=== PATIENT | female | born 1950 | race Two or more races ===

== ENCOUNTER → 2022-08-20 | Outpatient (CLI) | payer OTHER ==
[2022-08-20 12:20] LABS: Basophils # (auto) 0.1 10 ^3/uL (0-0.2); Basophils % (auto) 0.9 % (0.0-2.0); Eosinophils # (auto) 0.2 10 ^3/uL (0-0.8); Eosinophils % (auto) 2.2 % (0.0-7.0); Hematocrit 39.7 % (36.0-46.0); Hemoglobin 13.5 g/dL (12.2-16.2); Lymphocytes # (auto) 2.1 10 ^3/uL (0.4-5.4); Lymphocytes % (auto) 28.7 % (10.0-50.0); Mean Corpuscular Hemoglobin 29.6 pg (28.0-32.0); Mean Corpuscular Hgb Conc. 33.9 g/dL (32.0-36.0); Mean Corpuscular Volume 87.5 fL (80.0-100.0); Monocytes # (auto) 0.3 10 ^3/uL (0-1.3); Monocytes % (auto) 4.6 % (0.0-12.0); Neutrophils # (auto) 4.5 10 ^3/uL (1.6-8.6); Neutrophils % (auto) 63.6 % (37.0-80.0); Nucleated Red Blood Cells % 0.1 %; Red Blood Cells 4.54 10^6/uL (4.0-5.20); Red Cell Distribution Width 13.7 % (11.8-14.3); White Blood Cell 7.1 10^3/uL (4.4-10.8)
[2022-08-20 13:12] LABS: Albumin 3.7 g/dL (3.4-5.0); Calcium 8.7 mg/dL (8.5-10.1); Potassium 3.3 mmol/L (3.5-5.1)
[2022-08-20 13:18] LABS: BUN/Creatinine Ratio 15.7 (10.0-20.0); Bilirubin, Total 0.5 mg/dL (0.2-1.0); Uric Acid 3.4 mg/dL (2.6-6.0)
[2022-08-20 13:51] LABS: % Iron Saturation 23.5 % (15-50)
[2022-08-21 12:43] LABS: Urine Bacteria NONE SEEN /hpf (None Seen); Urine Blood 3+ /uL (Negative); Urine Mucus FEW (None Seen); Urine Specific Gravity 1.012 (1.001-1.035); Urine WBC 152 /hpf (0 - 5); Urine WBC Clumps PRESENT /hpf (None Seen)
== END | disposition home or self-care (01) ==
LOC: LAB 12:01
PROVIDERS: ATTEND Family Medicine
DX: E11.22 Type 2 diabetes mellitus with diabetic chronic kidney disease (principal); N18.31 Chronic kidney disease, stage 3a
CPT/HCPCS: 36415; 80053; 80061; 81001; 82306; 82607; 83036; 83540; 83550; 83735; 84550; 85025; 87086

== ENCOUNTER → 2022-09-24 | Outpatient (CLI) | payer OTHER | END | disposition home or self-care (01) | LOC: XYW 09:31 | DX: I08.3 Combined rheumatic disorders of mitral, aortic and tricuspid valves (principal); I48.91 Unspecified atrial fibrillation | CPT/HCPCS: 93306 ==

== ENCOUNTER → 2022-11-05 | Outpatient (CLI) | payer OTHER ==
[2022-11-05 14:37] LABS: Urine Bacteria NONE SEEN /hpf (None Seen); Urine Blood 3+ /uL (Negative); Urine Specific Gravity 1.007 (1.001-1.035); Urine WBC 29 /hpf (0 - 5)
== END | disposition home or self-care (01) ==
LOC: LAB 13:43
PROVIDERS: ATTEND Family Medicine
DX: R39.15 Urgency of urination (principal)
CPT/HCPCS: 81001; 87086; 87088; 87186

== ENCOUNTER → 2022-12-21 | Outpatient (CLI) | payer OTHER ==
[2022-12-21 14:10] LABS: Urine Bacteria NONE SEEN /hpf (None Seen); Urine Blood 3+ /uL (Negative); Urine Clarity HAZY (Clear); Urine Color PINK (Yellow); Urine Protein, UAD 1+ (Negative); Urine Specific Gravity 1.021 (1.001-1.035); Urine Urobilinogen Normal (Negative); Urine WBC 11 /hpf (0 - 5); Urine pH 5.5 (5.0-8.0)
== END | disposition home or self-care (01) ==
LOC: LAB 13:40
PROVIDERS: ATTEND Family Medicine
DX: N39.0 Urinary tract infection, site not specified (principal)
CPT/HCPCS: 81001; 87086

== ENCOUNTER → 2023-04-15 | Outpatient (CLI) | payer OTHER ==
[2023-04-15 11:09] LABS: Basophils # (auto) 0.1 10 ^3/uL (0-0.2); Eosinophils # (auto) 0.2 10 ^3/uL (0-0.8); Eosinophils % (auto) 2.9 % (0.0-7.0); Hematocrit 38.4 % (36.0-46.0); Lymphocytes # (auto) 1.7 10 ^3/uL (0.4-5.4); Mean Corpuscular Hemoglobin 29.5 pg (28.0-32.0); Mean Corpuscular Hgb Conc. 33.8 g/dL (32.0-36.0); Mean Corpuscular Volume 87.5 fL (80.0-100.0); Monocytes # (auto) 0.3 10 ^3/uL (0-1.3); Monocytes % (auto) 4.4 % (0.0-12.0); Neutrophils # (auto) 3.9 10 ^3/uL (1.6-8.6); Neutrophils % (auto) 63.7 % (37.0-80.0); Nucleated Red Blood Cells % 0.1 %; Red Blood Cells 4.39 10^6/uL (4.0-5.20); Red Cell Distribution Width 14.3 % (11.8-14.3); White Blood Cell 6.2 10^3/uL (4.4-10.8)
[2023-04-15 11:37] LABS: Alanine Aminotransferase 13 U/L (7-40); Albumin 4.5 g/dL (3.2-4.8); Alkaline Phosphatase 149 U/L (46-116); Anion Gap 5 (5-15); Aspartate Aminotransferase 15 U/L (13-40); BUN/Creatinine Ratio 12.3 (10.0-20.0); Bilirubin, Total 0.5 mg/dL (0.2-1.0); Blood Urea Nitrogen 10 mg/dL (9-23); Calcium 9.3 mg/dL (8.5-10.1); Carbon Dioxide 28 mmol/L (20-30); Chloride 110 mmol/L (98-107); Cholesterol 119 mg/dL (< 200); Glucose 95 mg/dL (74-106); HDL Cholesterol 47 mg/dL (40-59); LDL Cholesterol 53 mg/dL (< 100); Potassium 3.8 mmol/L (3.5-5.1); Sodium 143 mmol/L (136-145); Triglycerides 118 mg/dL (< 150)
[2023-04-15 11:40] LABS: Free T4 (Free Thyroxine) 1.03 ng/dL (0.89-1.76)
[2023-04-15 11:41] LABS: Free T3 3.02 pg/mL (2.3-4.2)
[2023-04-15 12:05] LABS: Erythrocyte Sedimentation Rate 14 mm/hr (0-20); Hepatitis B Surface Antigen Negative (Negative)
[2023-04-15 12:26] LABS: Hepatitis C Antibody Negative (Negative)
[2023-04-16 08:06] LABS: Complement C3 147 mg/dL (82-167); Rheumatoid Arthritis Factor <10.0 IU/mL (<14.0)
[2023-04-16 12:06] LABS: Anti-Nuclear Antibody Direct Negative (Negative)
== END | disposition home or self-care (01) ==
LOC: LAB 10:38
PROVIDERS: ATTEND Student in an Organized Health Care Education/Training Program
DX: I48.0 Paroxysmal atrial fibrillation (principal); I50.9 Heart failure, unspecified; I63.9 Cerebral infarction, unspecified; N18.31 Chronic kidney disease, stage 3a; R76.0 Raised antibody titer; R79.82 Elevated C-reactive protein (CRP); B17.9 Acute viral hepatitis, unspecified; E27.40 Unspecified adrenocortical insufficiency; M05.9 Rheumatoid arthritis with rheumatoid factor, unspecified
CPT/HCPCS: 36415; 80053; 80061; 82088; 82947; 84439; 84443; 84481; 85025; 85652; 86038; 86160; 86162; 86431; 86803; 87340

== ENCOUNTER → 2023-05-24 | Outpatient (CLI) | payer OTHER ==
[~2023-05-24] VITALS: Ht 162.6 cm; Wt 94.3 kg
[~2023-05-24] MED LIST: ADENOSINE 79 MG in GIVE UN-DILUTED 0 ML IV ONE; ADENOSINE 90 MG/30 ML INJ IV ONE; METOPROLOL SUCCINATE XL 50 MG TAB PO ONE
== END | disposition home or self-care (01) ==
LOC: Rad HDHVI 14:02
PROVIDERS: ATTEND Internal Medicine Cardiovascular Disease
DX: I13.0 Hypertensive heart and chronic kidney disease with heart failure and stage 1 through stage 4 chronic kidney disease, or unspecified chronic kidney disease (principal); N18.31 Chronic kidney disease, stage 3a; I50.9 Heart failure, unspecified; I63.9 Cerebral infarction, unspecified; R06.02 Shortness of breath; I48.0 Paroxysmal atrial fibrillation; Z95.0 Presence of cardiac pacemaker; Z82.49 Family history of ischemic heart disease and other diseases of the circulatory system
CPT/HCPCS: 78452; 93005; 96374; 96375; A9500; J0153

== ENCOUNTER → 2023-05-26 | Outpatient (CLI) | payer OTHER | END | disposition home or self-care (01) | LOC: XYW 08:43 | PROVIDERS: ATTEND Internal Medicine | DX: I65.22 Occlusion and stenosis of left carotid artery (principal); R42 Dizziness and giddiness | CPT/HCPCS: 93886 ==

== ENCOUNTER → 2023-07-23 | Outpatient (CLI) | payer OTHER ==
[2023-07-23 11:00] LABS: Alanine Aminotransferase 21 U/L (7-40); Albumin 4.5 g/dL (3.2-4.8); Alkaline Phosphatase 119 U/L (46-116); Anion Gap 9 (5-15); Aspartate Aminotransferase 18 U/L (13-40); BUN/Creatinine Ratio 17.1 (10.0-20.0); Bilirubin, Total 0.4 mg/dL (0.2-1.0); Blood Urea Nitrogen 20 mg/dL (9-23); Calcium 9.4 mg/dL (8.5-10.1); Carbon Dioxide 26 mmol/L (20-30); Chloride 105 mmol/L (98-107); Glucose 101 mg/dL (74-106); Potassium 3.9 mmol/L (3.5-5.1); Sodium 140 mmol/L (136-145); Total Protein 6.8 g/dL (5.7-8.2)
== END | disposition home or self-care (01) ==
LOC: LAB 10:12
PROVIDERS: ATTEND Internal Medicine
DX: I13.0 Hypertensive heart and chronic kidney disease with heart failure and stage 1 through stage 4 chronic kidney disease, or unspecified chronic kidney disease (principal); N18.9 Chronic kidney disease, unspecified; I50.9 Heart failure, unspecified; E78.5 Hyperlipidemia, unspecified
CPT/HCPCS: 36415; 80053

== ENCOUNTER 2023-09-13 11:26 | Emergency (ER) | payer OTHER ==
[~2023-09-13] VITALS: Ht 154.9 cm; Wt 97.4 kg
[2023-09-13] MEDS: SODIUM CHLORIDE 0.9% 500 ML IVB ONE (11:45)
[2023-09-13 13:51] LABS: Chloride 104 mmol/L (98-107); Potassium 3.2 mmol/L (3.5-5.1); Sodium 140 mmol/L (136-145)
[2023-09-13 13:52] LABS: Anion Gap 10 (5-15); Carbon Dioxide 26 mmol/L (20-30)
[2023-09-13 13:53] LABS: Calcium 10.6 mg/dL (8.5-10.1)
[2023-09-13 13:57] LABS: BUN/Creatinine Ratio 29.2 (10.0-20.0); Blood Urea Nitrogen 50 mg/dL (9-23); Glucose 110 mg/dL (74-106)
[2023-09-13 14:05] VITALS: O2SAT 98
[2023-09-13 14:08] LABS: Basophils # (auto) 0.1 10 ^3/uL (0-0.2); Eosinophils # (auto) 0.1 10 ^3/uL (0-0.8); Eosinophils % (auto) 0.7 % (0.0-7.0); Hematocrit 42.2 % (36.0-46.0); Hemoglobin 14.7 g/dL (12.2-16.2); Lymphocytes # (auto) 1.5 10 ^3/uL (0.4-5.4); Lymphocytes % (auto) 20.2 % (10.0-50.0); Mean Corpuscular Hgb Conc. 34.9 g/dL (32.0-36.0); Mean Corpuscular Volume 88.9 fL (80.0-100.0); Monocytes # (auto) 0.4 10 ^3/uL (0-1.3); Monocytes % (auto) 5.2 % (0.0-12.0); Neutrophils # (auto) 5.6 10 ^3/uL (1.6-8.6); Neutrophils % (auto) 72.9 % (37.0-80.0); Nucleated Red Blood Cells % 0.1 %; Red Blood Cells 4.75 10^6/uL (4.0-5.20); Red Cell Distribution Width 13.8 % (11.8-14.3); White Blood Cell 7.7 10^3/uL (4.4-10.8)
[2023-09-13 14:21] LABS: Urine Bacteria MOD /hpf (None Seen); Urine Blood 3+ /uL (Negative); Urine Clarity Turbid (Clear); Urine Color Light-Yellow (Yellow); Urine Hyaline Cast FEW /lpf (0 - 2); Urine Mucus FEW (None Seen); Urine Protein, UAD Negative (Negative); Urine Specific Gravity 1.015 (1.001-1.035); Urine Urobilinogen Normal (Negative); Urine WBC 21 /hpf (0 - 5); Urine pH 5.5 (5.0-9.0)
[2023-09-13] MEDS: PANTOPRAZOLE 40 MG/10 ML VIAL INJ IV ONE (14:25)
[2023-09-13] MEDS: ONDANSETRON HCL 4 MG/2 ML VIAL IV ONE (14:25)
[2023-09-13 14:26] VITALS: BP 118/53; PULSE 71; RESP 18
[2023-09-13] MEDS: MORPHINE SULFATE 4 MG/ML SYR/VIAL IV ONE (14:26)
[2023-09-13] MEDS ORDERED: CIPR-173 PO (15:07)
[2023-09-13] MEDS: CIPROFLOXACIN HCL 500 MG TAB PO ONE (15:17)
== END 2023-09-13 15:16 | disposition home or self-care (01) ==
LOC: ER 11:26
DX: N39.0 Urinary tract infection, site not specified (principal); R10.13 Epigastric pain; I10 Essential (primary) hypertension; Z88.1 Allergy status to other antibiotic agents; Z86.73 Personal history of transient ischemic attack (TIA), and cerebral infarction without residual deficits; Z90.89 Acquired absence of other organs
CPT/HCPCS: 36415; 74176; 80048; 81001; 85025; 96361; 96374; 96375; C9113; J2405

== ENCOUNTER 2023-09-15 17:22 | Inpatient (IN) | payer OTHER ==
[~2023-09-15] VITALS: Ht 154.9 cm; Wt 106.4 kg
[~2023-09-15 17:22] MED LIST changes: -ADENOSINE 79 MG in GIVE UN-DILUTED 0 ML IV ONE; -ADENOSINE 90 MG/30 ML INJ IV ONE; +CIPR-173 PO; -METOPROLOL SUCCINATE XL 50 MG TAB PO ONE
[2023-09-15 18:05] VITALS: BP 109/42; PULSE 70; RESP 18; TEMP 98.2; O2SAT 95
[2023-09-15] MEDS ORDERED: MORPHINE SULFATE INJ 2 MG/ml SYRG IV PRN (18:15)
[2023-09-15] MEDS ORDERED: NITROGLYCERIN 0.4 MG SL TAB SL PRN (18:15)
[2023-09-15] MEDS: SODIUM CHLORIDE 0.9% 1,000 ML IV SCH (18:15)
[2023-09-15] MEDS: PANTOPRAZOLE 40 MG/10 ML VIAL INJ IV ONE (18:52)
[2023-09-15 20:00] VITALS: PULSE 84; RESP 18; O2SAT 96
[2023-09-15 20:38] LABS: INR 1.1 (0.9-1.15); Prothrombin Time 11.6 sec (9.3-11.8)
[2023-09-15 21:00] VITALS: BP 132/53; PULSE 70; RESP 16; TEMP 97.8; O2SAT 95
[2023-09-15] MEDS: ACETAMINOPHEN 325 MG TAB PO PRN (23:53)
[2023-09-16] VITALS (9 sets, daily range): BP systolic 109–148; BP diastolic 49–63; PULSE 69–77; RESP 16–20; TEMP 97.8–99.1; O2SAT 90–96
[2023-09-16 07:11] LABS: Alanine Aminotransferase 25 U/L (7-40); Albumin 4.3 g/dL (3.2-4.8); Alkaline Phosphatase 99 U/L (46-116); Anion Gap 8 (5-15); Aspartate Aminotransferase 15 U/L (13-40); BUN/Creatinine Ratio 16.8 (10.0-20.0); Bilirubin, Total 0.5 mg/dL (0.2-1.0); Blood Urea Nitrogen 30 mg/dL (9-23); Calcium 9.7 mg/dL (8.5-10.1); Carbon Dioxide 25 mmol/L (20-30); Chloride 109 mmol/L (98-107); Glucose 97 mg/dL (74-106); Potassium 3.1 mmol/L (3.5-5.1); Sodium 142 mmol/L (136-145); Total Protein 6.8 g/dL (5.7-8.2)
[2023-09-16 07:33] LABS: Basophils # (auto) 0.1 10 ^3/uL (0-0.2); Basophils % (auto) 0.8 % (0.0-2.0); Eosinophils # (auto) 0.1 10 ^3/uL (0-0.8); Eosinophils % (auto) 1.8 % (0.0-7.0); Hematocrit 36.2 % (36.0-46.0); Hemoglobin 12.3 g/dL (12.2-16.2); Lymphocytes # (auto) 1.8 10 ^3/uL (0.4-5.4); Lymphocytes % (auto) 25.9 % (10.0-50.0); Mean Corpuscular Hemoglobin 30.7 pg (28.0-32.0); Mean Corpuscular Volume 90.2 fL (80.0-100.0); Monocytes # (auto) 0.5 10 ^3/uL (0-1.3); Monocytes % (auto) 6.9 % (0.0-12.0); Neutrophils # (auto) 4.5 10 ^3/uL (1.6-8.6); Neutrophils % (auto) 64.6 % (37.0-80.0); Red Blood Cells 4.01 10^6/uL (4.0-5.20); Red Cell Distribution Width 13.5 % (11.8-14.3)
[2023-09-16] MEDS: ONDANSETRON HCL 4 MG/2 ML VIAL IV PRN (08:09)
[2023-09-16] MEDS: MORPHINE SULFATE INJ 2 MG/ml SYRG IV PRN (08:10)
[2023-09-16] MEDS ORDERED: PANTOPRAZOLE 40 MG/10 ML VIAL INJ IV SCH (10:00)
[2023-09-16] MEDS: POTASSIUM CHL 20MEQ/100ML 100 ML IV ONE (11:55)
[2023-09-16] MEDS: cefTRIAXone 1GM/50ML D5W 50 ML IV ONE (12:54)
[2023-09-16] MEDS ORDERED: SUCCINYLCHOLINE CHLORIDE 20 MG/ML 10ML VIAL IV ONE (14:19)
[2023-09-16] MEDS ORDERED: fentaNYL CITRATE 100 MCG/2 ML VL ONE (14:20)
[2023-09-16] MEDS ORDERED: MEPERIDINE HCL (50 MG/ML) 1 ML VIAL ONE (14:20)
[2023-09-16] MEDS ORDERED: MIDAZOLAM HCL 2MG/2ML 2ml VIAL (1mg/ml) ONE (14:20)
[2023-09-16] MEDS ORDERED: CIPROFLOXACIN 400MG/200ML 200 ML IV ONE (14:22)
[2023-09-16] MEDS ORDERED: PROPOFOL 10 MG/ML 20 ML IV ONE (14:27)
[2023-09-16] MEDS ORDERED: DexAMETHasone SOD PHOS 10MG/1ML VIAL INJ ONE (14:27)
[2023-09-16] MEDS ORDERED: IOHEXOL 300 MG/ML 100ML BOTTLE IJ ONE (14:41)
[2023-09-16] MEDS ORDERED: ONDANSETRON HCL 4 MG/2 ML VIAL IV ONE (15:15)
[2023-09-16] MEDS ORDERED: MORPHINE SULFATE 4 MG/ML SYR/VIAL IV PRN (15:15)
[2023-09-16] MEDS ORDERED: ePHEDrine SULFATE 50 MG/ML AMP IV PRN (15:15)
[2023-09-16] MEDS ORDERED: LABETALOL HCL 5 MG/ML 4ML SYRINGE IV PRN (15:15)
[2023-09-16] MEDS ORDERED: HYDROmorphone HCL 2 MG/ML VL/or syr IV PRN (15:15)
[2023-09-16] MEDS ORDERED: MIDAZOLAM HCL 2MG/2ML 2ml VIAL (1mg/ml) IV PRN (15:15)
[2023-09-16] MEDS ORDERED: SUGAMMADEX 200mg/2ml Vial (100MG/ML) IV ONE (15:31)
[2023-09-16] MEDS: SODIUM CHLORIDE 0.9% 1,000 ML IV SCH (18:00)
[2023-09-16] MEDS: METOPROLOL TARTRATE 25 MG TAB PO SCH (21:48)
[2023-09-17] VITALS (7 sets, daily range): BP systolic 98–136; BP diastolic 41–81; PULSE 70–75; RESP 17–20; TEMP 98–99; O2SAT 93–95
[2023-09-17 07:09] LABS: Basophils # (auto) 0 10 ^3/uL (0-0.2); Basophils % (auto) 0.1 % (0.0-2.0); Eosinophils # (auto) 0 10 ^3/uL (0-0.8); Hematocrit 35.5 % (36.0-46.0); Hemoglobin 12.1 g/dL (12.2-16.2); Lymphocytes # (auto) 0.5 10 ^3/uL (0.4-5.4); Lymphocytes % (auto) 5.8 % (10.0-50.0); Mean Corpuscular Hemoglobin 30.8 pg (28.0-32.0); Mean Corpuscular Hgb Conc. 34.1 g/dL (32.0-36.0); Mean Corpuscular Volume 90.2 fL (80.0-100.0); Monocytes # (auto) 0.1 10 ^3/uL (0-1.3); Monocytes % (auto) 1.5 % (0.0-12.0); Neutrophils # (auto) 8.1 10 ^3/uL (1.6-8.6); Neutrophils % (auto) 92.6 % (37.0-80.0); Red Blood Cells 3.93 10^6/uL (4.0-5.20); Red Cell Distribution Width 13.9 % (11.8-14.3); White Blood Cell 8.7 10^3/uL (4.4-10.8)
[2023-09-17 07:19] LABS: Anion Gap 6 (5-15); Carbon Dioxide 23 mmol/L (20-30); Chloride 113 mmol/L (98-107); Potassium 3.9 mmol/L (3.5-5.1); Sodium 142 mmol/L (136-145)
[2023-09-17 07:20] LABS: Calcium 9.4 mg/dL (8.5-10.1)
[2023-09-17 07:24] LABS: Free T3 1.85 pg/mL (2.3-4.2); Free T4 (Free Thyroxine) 1.34 ng/dL (0.89-1.76)
[2023-09-17 07:25] LABS: Blood Urea Nitrogen 18 mg/dL (9-23); Glucose 127 mg/dL (74-106)
[2023-09-17 07:26] LABS: Magnesium 2.1 mg/dL (1.6-2.6)
[2023-09-17] MEDS: LEVOTHYROXINE SODIUM 25 MCG TAB PO ONE (08:00)
[2023-09-17] MEDS: cefTRIAXone 1GM/50ML D5W 50 ML IV SCH (09:24)
[2023-09-17] MEDS ORDERED: ONDANSETRON HCL 4 MG/2 ML VIAL IV PRN (11:00)
[2023-09-17] MEDS ORDERED: TRAM50TA2 PO (11:34)
[2023-09-17] MEDS ORDERED: LEVO75TA6 PO ×2 (11:39→15:14)
[2023-09-17] MEDS ORDERED: ONDA-155 PO (11:39)
[2023-09-17] MEDS ORDERED: CEFP200T15 PO (11:49)
[2023-09-18 05:00] VITALS: BP 147/65; PULSE 77; RESP 17; TEMP 98.1; O2SAT 92
[2023-09-18] MEDS: LEVOTHYROXINE SODIUM 25 MCG TAB PO SCH (05:35)
[2023-09-18 08:10] VITALS: PULSE 70; RESP 18; O2SAT 97
[2023-09-18 09:00] VITALS: BP 122/63; PULSE 70; RESP 18; TEMP 98.2; O2SAT 97
[2023-09-18] MEDS: DOCUSATE SOD 100 MG CAP PO PRN (10:42)
[2023-09-18 13:00] VITALS: BP 126/60; PULSE 71; RESP 16; TEMP 98.1; O2SAT 96
[2023-09-18] MEDS ORDERED: ONDA-155 PO (16:39)
[2023-09-18] MEDS ORDERED: LEVO75TA6 PO (16:39)
[2023-09-18] MEDS ORDERED: CEFP200T15 PO (16:39)
[2023-09-18] MEDS ORDERED: TRAM50TA2 PO (16:42)
[2023-09-18 17:00] VITALS: BP 120/52; PULSE 78; RESP 20; TEMP 98.1; O2SAT 96
[2023-09-18 18:27] VITALS: BP 102/59; PULSE 67; TEMP 36.7
== END 2023-09-18 21:26 | disposition left against medical advice (07) | DRG 659 ==
LOC: WEST WING 17:22
PROVIDERS: ADMIT Internal Medicine; ATTEND Internal Medicine
PROC: 0TC38ZZ Extirpation of Matter from Right Kidney Pelvis, Via Natural or Artificial Opening Endoscopic (ICD-10-PCS; 2023-09-16)
PROC: BT1D1ZZ Fluoroscopy of Right Kidney, Ureter and Bladder using Low Osmolar Contrast (ICD-10-PCS; 2023-09-16)
PROC: 0T768DZ Dilation of Right Ureter with Intraluminal Device, Via Natural or Artificial Opening Endoscopic (ICD-10-PCS; principal; 2023-09-16 14:26)
DX: N20.2 Calculus of kidney with calculus of ureter (principal); N17.0 Acute kidney failure with tubular necrosis; I48.20 Chronic atrial fibrillation, unspecified; N30.00 Acute cystitis without hematuria; I69.354 Hemiplegia and hemiparesis following cerebral infarction affecting left non-dominant side; I10 Essential (primary) hypertension; E87.6 Hypokalemia; Z87.442 Personal history of urinary calculi; Z88.1 Allergy status to other antibiotic agents; Z90.11 Acquired absence of right breast and nipple; Z85.3 Personal history of malignant neoplasm of breast; Z82.49 Family history of ischemic heart disease and other diseases of the circulatory system; Z83.3 Family history of diabetes mellitus
CPT/HCPCS: 36415; 71045; 74018; 74176; 76000; 76536; 80048; 80053; 81001; 82360; 83036; 83735; 84439; 84443; 84481; 85025; 85610; 86850; 86900; 86901; 96361; 96374; 96375; C9113; G0378; J0330; J1100; J2250; J2405; J2704; J3480

== ENCOUNTER → 2023-11-30 | Outpatient (CLI) | payer OTHER ==
[~2023-11-30] MED LIST changes: +CEFP200T15 PO; +LEVO75TA6 PO; +ONDA-155 PO; +TRAM50TA2 PO
[2023-11-30 12:43] LABS: Free T4 (Free Thyroxine) 1.39 ng/dL (0.89-1.76)
[2023-11-30 12:44] LABS: T3 Total 0.92 ng/mL (0.60-1.81)
== END | disposition home or self-care (01) ==
LOC: LAB 11:10
PROVIDERS: ATTEND Family Medicine
DX: E11.22 Type 2 diabetes mellitus with diabetic chronic kidney disease (principal); N18.9 Chronic kidney disease, unspecified; E78.2 Mixed hyperlipidemia; F51.01 Primary insomnia
CPT/HCPCS: 36415; 83036; 84439; 84443; 84480

== ENCOUNTER 2023-12-21 12:35 | Emergency (ER) | payer OTHER ==
[~2023-12-21] VITALS: Ht 154.9 cm; Wt 82.0 kg
[2023-12-21] MEDS: SODIUM CHLORIDE 0.9% 1,000 ML IV ONE (13:30)
[2023-12-21 14:16] LABS: Basophils # (auto) 0 10 ^3/uL (0-0.2); Basophils % (auto) 0.6 % (0.0-2.0); Eosinophils # (auto) 0.1 10 ^3/uL (0-0.8); Hematocrit 36.4 % (36.0-46.0); Hemoglobin 12.8 g/dL (12.2-16.2); Lymphocytes # (auto) 1.3 10 ^3/uL (0.4-5.4); Mean Corpuscular Hemoglobin 33.5 pg (28.0-32.0); Mean Corpuscular Hgb Conc. 35.1 g/dL (32.0-36.0); Mean Corpuscular Volume 95.3 fL (80.0-100.0); Monocytes # (auto) 0.4 10 ^3/uL (0-1.3); Monocytes % (auto) 4.9 % (0.0-12.0); Neutrophils # (auto) 5.5 10 ^3/uL (1.6-8.6); Neutrophils % (auto) 75.5 % (37.0-80.0); Nucleated Red Blood Cells % 0.1 %; Platelet Count (auto) 325 10^3/uL (140-450); Red Blood Cells 3.82 10^6/uL (4.0-5.20); Urine Bacteria FEW /hpf (None Seen); Urine Blood Negative /uL (Negative); Urine Clarity Turbid (Clear); Urine Color Light-Yellow (Yellow); Urine Hyaline Cast FEW /lpf (0 - 2); Urine Mucus FEW (None Seen); Urine Protein, UAD TRACE (Negative); Urine Specific Gravity 1.014 (1.001-1.035); Urine Urobilinogen Normal (Negative); Urine WBC 60 /hpf (0 - 5); White Blood Cell 7.3 10^3/uL (4.4-10.8)
[2023-12-21 14:45] LABS: Alanine Aminotransferase 18 U/L (7-40); Albumin 4.8 g/dL (3.2-4.8); Alkaline Phosphatase 128 U/L (46-116); Anion Gap 11 (5-15); Aspartate Aminotransferase 17 U/L (13-40); BUN/Creatinine Ratio 24.6 (10.0-20.0); Bilirubin, Total 0.5 mg/dL (0.2-1.0); Blood Urea Nitrogen 47 mg/dL (9-23); Carbon Dioxide 23 mmol/L (20-30); Chloride 103 mmol/L (98-107); Glucose 105 mg/dL (74-106); Sodium 137 mmol/L (136-145); Total Protein 7.6 g/dL (5.7-8.2)
[2023-12-21] MEDS ORDERED: HYDR-4902 PO (14:53)
[2023-12-21] MEDS ORDERED: NITR-87 PO (14:53)
[2023-12-21] MEDS: NITROFURANTOIN 100 mg CAP PO ONE (16:31)
[2023-12-21] MEDS: HYDROcodone-ACET 10/325MG TAB PO ONE (16:32)
[2023-12-21] MEDS: ONDANSETRON HCL 4 MG/2 ML VIAL IV ONE (16:37)
[2023-12-21 18:51] VITALS: BP 120/60; PULSE 70; RESP 16; TEMP 97.5; O2SAT 96
== END 2023-12-21 18:57 | disposition home or self-care (01) ==
LOC: ER 12:35
DX: N39.0 Urinary tract infection, site not specified (principal); I10 Essential (primary) hypertension; Z86.73 Personal history of transient ischemic attack (TIA), and cerebral infarction without residual deficits; Z90.89 Acquired absence of other organs; Z79.899 Other long term (current) drug therapy; Z88.8 Allergy status to other drugs, medicaments and biological substances
CPT/HCPCS: 36415; 74176; 80053; 81001; 85025; 96361; 96374; 99285; J2405; J7030

== ENCOUNTER 2023-12-24 10:15 | Inpatient (IN) | payer OTHER ==
[~2023-12-24] VITALS: Ht 154.9 cm; Wt 96.2 kg
[2023-12-24 08:08] VITALS: PULSE 84; RESP 20; O2SAT 98
[~2023-12-24 10:15] MED LIST changes: +HYDR-4902 PO; +NITR-87 PO
[2023-12-24] MEDS: DONNATAL 5ml ORAL Elix (BELLADONNA ALK-PHENOBARB) PO ONE (11:15)
[2023-12-24 11:25] LABS: Basophils # (auto) 0.1 10 ^3/uL (0-0.2); Basophils % (auto) 0.8 % (0.0-2.0); Eosinophils # (auto) 0.1 10 ^3/uL (0-0.8); Eosinophils % (auto) 0.9 % (0.0-7.0); Hematocrit 38.3 % (36.0-46.0); Lymphocytes # (auto) 1.3 10 ^3/uL (0.4-5.4); Lymphocytes % (auto) 13.8 % (10.0-50.0); Mean Corpuscular Hemoglobin 33.2 pg (28.0-32.0); Mean Corpuscular Hgb Conc. 34.1 g/dL (32.0-36.0); Mean Corpuscular Volume 97.3 fL (80.0-100.0); Monocytes # (auto) 0.4 10 ^3/uL (0-1.3); Monocytes % (auto) 4.6 % (0.0-12.0); Neutrophils # (auto) 7.3 10 ^3/uL (1.6-8.6); Neutrophils % (auto) 79.9 % (37.0-80.0); Platelet Count (auto) 345 10^3/uL (140-450); Red Blood Cells 3.93 10^6/uL (4.0-5.20); Red Cell Distribution Width 16.1 % (11.8-14.3); White Blood Cell 9.2 10^3/uL (4.4-10.8)
[2023-12-24 11:45] LABS: Urine Bacteria FEW /hpf (None Seen); Urine Blood 1+ /uL (Negative); Urine Budding Yeast MODERATE /hpf (None Seen); Urine Clarity Turbid (Clear); Urine Color Yellow (Yellow); Urine Hyaline Cast FEW /lpf (0 - 2); Urine Mucus FEW (None Seen); Urine Protein, UAD Negative (Negative); Urine Specific Gravity 1.013 (1.001-1.035); Urine Urobilinogen Normal (Negative); Urine WBC 141 /hpf (0 - 5); Urine pH 5.5 (5.0-9.0)
[2023-12-24 11:47] LABS: Alanine Aminotransferase 25 U/L (7-40); Alkaline Phosphatase 133 U/L (46-116); Aspartate Aminotransferase 24 U/L (13-40); BUN/Creatinine Ratio 23.1 (10.0-20.0); Bilirubin, Total 0.5 mg/dL (0.2-1.0); Blood Urea Nitrogen 31 mg/dL (9-23); Calcium 10.7 mg/dL (8.7-10.4); Chloride 108 mmol/L (98-107); Glucose 121 mg/dL (74-106); Magnesium 2.6 mg/dL (1.6-2.6); Potassium 3.5 mmol/L (3.5-5.1); Sodium 143 mmol/L (136-145)
[2023-12-24 12:09] LABS: Anion Gap 11 (5-15); Carbon Dioxide 24 mmol/L (20-30)
[2023-12-24 12:26] LABS: Lipase 31 U/L (12-53)
[2023-12-24] MEDS: MAALOX PLUS or MAALOX 30 ML PO ONE (14:12)
[2023-12-24] MEDS: LIDOCAINE VISCOUS 2% 15ML UD PO ONE (14:12)
[2023-12-24] MEDS: FAMOTIDINE (10MG/ML) 2ML VL IV ONE (14:23)
[2023-12-24] MEDS: levoFLOXacin 500MG 100 ML IV ONE (14:24)
[2023-12-24] MEDS: ONDANSETRON HCL 4 MG/2 ML VIAL IV ONE (14:24)
[2023-12-24 17:30] VITALS: PULSE 70; RESP 16; O2SAT 97
[2023-12-24 18:08] VITALS: PULSE 84; RESP 20; O2SAT 98
[2023-12-24 18:24] VITALS: BP 154/52; PULSE 84; RESP 20; TEMP 98.1; O2SAT 98
[2023-12-24] MEDS ORDERED: AMLO1TAB23 PO (19:07)
[2023-12-24] MEDS ORDERED: AMIO200T13 PO (19:07)
[2023-12-24] MEDS ORDERED: APIX5TAB PO (19:07)
[2023-12-24] MEDS ORDERED: SERT-160 PO (19:07)
[2023-12-24] MEDS ORDERED: LOSA-534 PO (19:07)
[2023-12-24] MEDS ORDERED: NITR100C6 PO (19:07)
[2023-12-24] MEDS ORDERED: TRAZ-227 PO (19:07)
[2023-12-24] MEDS ORDERED: ATOR40TA52 PO (19:07)
[2023-12-24] MEDS ORDERED: FURO40TA4 PO (19:07)
[2023-12-24] MEDS ORDERED: POTA-36 (19:07)
[2023-12-24] MEDS ORDERED: METO-289 PO (19:07)
[2023-12-24] MEDS ORDERED: LEVO-177 PO (19:07)
[2023-12-24 20:00] VITALS: PULSE 70; RESP 20; O2SAT 97
[2023-12-24] MEDS: HYDROcodone-ACET 5/325MG TAB PO PRN (20:41)
[2023-12-24] MEDS: AMIODARONE HCL 200 MG TAB PO SCH (20:50)
[2023-12-24] MEDS: ATORVASTATIN 20 MG TAB PO SCH (20:51)
[2023-12-24] MEDS: APIXABAN 5 MG TAB PO SCH (20:51)
[2023-12-24 21:00] VITALS: BP 146/58; PULSE 70; RESP 20; TEMP 98.4; O2SAT 97
[2023-12-25] VITALS (7 sets, daily range): BP systolic 117–153; BP diastolic 47–88; PULSE 70–74; RESP 13–20; TEMP 97.2–98.1; O2SAT 94–98
[2023-12-25] MEDS: LEVOTHYROXINE SODIUM 88 MCG TAB PO SCH (04:59)
[2023-12-25] MEDS ORDERED: LEVOTHYROXINE SODIUM 25 MCG TAB PO SCH (06:00)
[2023-12-25 06:31] LABS: Chloride 109 mmol/L (98-107); Potassium 3.2 mmol/L (3.5-5.1); Sodium 144 mmol/L (136-145)
[2023-12-25 06:32] LABS: Anion Gap 9 (5-15); Calcium 10.2 mg/dL (8.7-10.4); Carbon Dioxide 26 mmol/L (20-30)
[2023-12-25 06:37] LABS: BUN/Creatinine Ratio 22.6 (10.0-20.0); Blood Urea Nitrogen 31 mg/dL (9-23); Glucose 100 mg/dL (74-106)
[2023-12-25] MEDS: ONDANSETRON HCL 4 MG/2 ML VIAL IV PRN (09:34)
[2023-12-25] MEDS: amLODIPine BESYLATE 5 MG TAB PO SCH (09:34)
[2023-12-25] MEDS: cefTRIAXone 1GM/50ML D5W 50 ML IV SCH (09:46)
[2023-12-25] MEDS: FUROSEMIDE 40 MG TAB PO SCH (09:48)
[2023-12-25] MEDS: METOPROLOL SUCCINATE XL 50 MG TAB PO SCH (09:48)
[2023-12-25] MEDS: ACETAMINOPHEN 325 MG TAB PO PRN (09:58)
[2023-12-25] MEDS ORDERED: levoFLOXacin 250MG 50 ML IV SCH (10:00)
[2023-12-25] MEDS: POTASSIUM EFFERVESENT TAB 25 MEQ PO ONE (16:46)
[2023-12-25] MEDS: MORPHINE SULFATE INJ 2 MG/ml SYRG IV PRN (21:27)
[2023-12-26] VITALS (8 sets, daily range): BP systolic 122–150; BP diastolic 46–64; PULSE 69–94; RESP 16–18; TEMP 97.8–98.5; O2SAT 93–97
[2023-12-26 06:05] LABS: Basophils # (auto) 0.1 10 ^3/uL (0-0.2); Basophils % (auto) 0.9 % (0.0-2.0); Eosinophils # (auto) 0.1 10 ^3/uL (0-0.8); Eosinophils % (auto) 1.4 % (0.0-7.0); Hemoglobin 12.2 g/dL (12.2-16.2); Lymphocytes # (auto) 1.4 10 ^3/uL (0.4-5.4); Lymphocytes % (auto) 17.7 % (10.0-50.0); Mean Corpuscular Hemoglobin 33.1 pg (28.0-32.0); Mean Corpuscular Hgb Conc. 33.9 g/dL (32.0-36.0); Mean Corpuscular Volume 97.5 fL (80.0-100.0); Monocytes # (auto) 0.4 10 ^3/uL (0-1.3); Monocytes % (auto) 4.7 % (0.0-12.0); Neutrophils # (auto) 5.8 10 ^3/uL (1.6-8.6); Neutrophils % (auto) 75.3 % (37.0-80.0); Nucleated Red Blood Cells % 0.1 %; Platelet Count (auto) 294 10^3/uL (140-450); Red Blood Cells 3.69 10^6/uL (4.0-5.20); Red Cell Distribution Width 15.9 % (11.8-14.3); White Blood Cell 7.7 10^3/uL (4.4-10.8)
[2023-12-26 06:20] LABS: Alanine Aminotransferase 21 U/L (7-40); Albumin 4.5 g/dL (3.2-4.8); Alkaline Phosphatase 118 U/L (46-116); Anion Gap 8 (5-15); Aspartate Aminotransferase 32 U/L (13-40); BUN/Creatinine Ratio 20.9 (10.0-20.0); Bilirubin, Total 0.5 mg/dL (0.2-1.0); Blood Urea Nitrogen 29 mg/dL (9-23); Calcium 10.2 mg/dL (8.7-10.4); Carbon Dioxide 28 mmol/L (20-30); Chloride 108 mmol/L (98-107); Glucose 93 mg/dL (74-106); Magnesium 2.4 mg/dL (1.6-2.6); Potassium 3.7 mmol/L (3.5-5.1); Sodium 144 mmol/L (136-145); Total Protein 7.1 g/dL (5.7-8.2)
[2023-12-26] MEDS: MORPHINE SULFATE INJ 2 MG/ml SYRG IV PRN (10:28)
[2023-12-26] MEDS: POTASSIUM CHL 20MEQ/100ML 100 ML IV SCH ×2 (13:37→16:00)
[2023-12-27] VITALS (7 sets, daily range): BP systolic 118–163; BP diastolic 46–82; PULSE 70–82; RESP 16–18; TEMP 97.7–98.4; O2SAT 94–98
[2023-12-27 06:59] LABS: Basophils # (auto) 0.1 10 ^3/uL (0-0.2); Basophils % (auto) 0.9 % (0.0-2.0); Eosinophils # (auto) 0.1 10 ^3/uL (0-0.8); Hematocrit 33.7 % (36.0-46.0); Hemoglobin 11.6 g/dL (12.2-16.2); Lymphocytes # (auto) 0.9 10 ^3/uL (0.4-5.4); Lymphocytes % (auto) 13.6 % (10.0-50.0); Mean Corpuscular Hemoglobin 33.2 pg (28.0-32.0); Mean Corpuscular Hgb Conc. 34.3 g/dL (32.0-36.0); Mean Corpuscular Volume 96.8 fL (80.0-100.0); Monocytes # (auto) 0.3 10 ^3/uL (0-1.3); Monocytes % (auto) 5.1 % (0.0-12.0); Neutrophils # (auto) 5.1 10 ^3/uL (1.6-8.6); Neutrophils % (auto) 78.4 % (37.0-80.0); Platelet Count (auto) 256 10^3/uL (140-450); Red Blood Cells 3.48 10^6/uL (4.0-5.20); Red Cell Distribution Width 15.8 % (11.8-14.3); White Blood Cell 6.5 10^3/uL (4.4-10.8)
[2023-12-27 07:16] LABS: Alanine Aminotransferase 20 U/L (7-40); Alkaline Phosphatase 110 U/L (46-116); Anion Gap 6 (5-15); Aspartate Aminotransferase 33 U/L (13-40); BUN/Creatinine Ratio 19.8 (10.0-20.0); Bilirubin, Total 0.4 mg/dL (0.2-1.0); Blood Urea Nitrogen 23 mg/dL (9-23); Calcium 9.5 mg/dL (8.7-10.4); Carbon Dioxide 28 mmol/L (20-30); Chloride 110 mmol/L (98-107); Glucose 103 mg/dL (74-106); Magnesium 2.2 mg/dL (1.6-2.6); Potassium 3.5 mmol/L (3.5-5.1); Sodium 144 mmol/L (136-145); Total Protein 6.3 g/dL (5.7-8.2)
[2023-12-27] MEDS: Ensure Enlive Vanilla 8oz Bottle PO SCH (08:00)
[2023-12-27] MEDS: POTASSIUM CHL 20MEQ/100ML 100 ML IV ONE (12:45)
[2023-12-28] VITALS (8 sets, daily range): BP systolic 130–152; BP diastolic 53–80; PULSE 69–81; RESP 16–18; TEMP 97.8–98.1; O2SAT 96–97
[2023-12-28 07:46] LABS: Basophils # (auto) 0 10 ^3/uL (0-0.2); Basophils % (auto) 0.6 % (0.0-2.0); Eosinophils # (auto) 0.2 10 ^3/uL (0-0.8); Eosinophils % (auto) 2.5 % (0.0-7.0); Hematocrit 37.2 % (36.0-46.0); Hemoglobin 12.6 g/dL (12.2-16.2); Lymphocytes # (auto) 1.3 10 ^3/uL (0.4-5.4); Lymphocytes % (auto) 17.4 % (10.0-50.0); Mean Corpuscular Hemoglobin 33.7 pg (28.0-32.0); Mean Corpuscular Hgb Conc. 33.8 g/dL (32.0-36.0); Mean Corpuscular Volume 99.6 fL (80.0-100.0); Monocytes # (auto) 0.4 10 ^3/uL (0-1.3); Monocytes % (auto) 4.6 % (0.0-12.0); Neutrophils # (auto) 5.7 10 ^3/uL (1.6-8.6); Neutrophils % (auto) 74.9 % (37.0-80.0); Nucleated Red Blood Cells % 0.1 %; Platelet Count (auto) 240 10^3/uL (140-450); Red Blood Cells 3.74 10^6/uL (4.0-5.20); Red Cell Distribution Width 15.8 % (11.8-14.3); White Blood Cell 7.7 10^3/uL (4.4-10.8)
[2023-12-28 08:02] LABS: INR 1.11 (0.9-1.15); Prothrombin Time 11.7 sec (9.3-11.8)
[2023-12-28 08:30] LABS: Alanine Aminotransferase 22 U/L (7-40); Alkaline Phosphatase 124 U/L (46-116); Anion Gap 10 (5-15); BUN/Creatinine Ratio 14.8 (10.0-20.0); Blood Urea Nitrogen 13 mg/dL (9-23); Calcium 9.7 mg/dL (8.7-10.4); Carbon Dioxide 24 mmol/L (20-30); Chloride 110 mmol/L (98-107); Glucose 89 mg/dL (74-106); Magnesium 2.3 mg/dL (1.6-2.6); Potassium 3.4 mmol/L (3.5-5.1); Sodium 144 mmol/L (136-145)
[2023-12-28 08:31] LABS: Albumin 4.2 g/dL (3.2-4.8)
[2023-12-28 08:32] LABS: Aspartate Aminotransferase 34 U/L (13-40); Bilirubin, Total 0.5 mg/dL (0.2-1.0)
[2023-12-28] MEDS: PANTOPRAZOLE 40 MG TAB PO ONE (18:38)
[2023-12-28] MEDS: MAALOX PLUS or MAALOX 30 ML PO PRN (18:39)
[2023-12-29] VITALS (8 sets, daily range): BP systolic 139–150; BP diastolic 56–79; PULSE 70–84; RESP 16–20; TEMP 97.9–98.7; O2SAT 96–98
[2023-12-29] MEDS: PANTOPRAZOLE 40 MG TAB PO SCH (06:45)
[2023-12-29] MEDS ORDERED: OMNIPAQUE 12mg/ml 500ml ORAL SOLUTION PO ONE (07:04)
[2023-12-29 07:55] LABS: Basophils % (auto) 0.7 % (0.0-2.0); Eosinophils % (auto) 2.3 % (0.0-7.0); Lymphocytes % (auto) 15.6 % (10.0-50.0); Monocytes % (auto) 3.9 % (0.0-12.0); Neutrophils % (auto) 77.5 % (37.0-80.0); Nucleated Red Blood Cells % 0.1 %; White Blood Cell 7.7 10^3/uL (4.4-10.8)
[2023-12-29 07:56] LABS: Basophils # (auto) 0.1 10 ^3/uL (0-0.2); Eosinophils # (auto) 0.2 10 ^3/uL (0-0.8); Hematocrit 35.9 % (36.0-46.0); Hemoglobin 12.1 g/dL (12.2-16.2); Lymphocytes # (auto) 1.2 10 ^3/uL (0.4-5.4); Mean Corpuscular Hemoglobin 32.5 pg (28.0-32.0); Mean Corpuscular Hgb Conc. 33.7 g/dL (32.0-36.0); Mean Corpuscular Volume 96.6 fL (80.0-100.0); Monocytes # (auto) 0.3 10 ^3/uL (0-1.3); Platelet Count (auto) 257 10^3/uL (140-450); Red Blood Cells 3.72 10^6/uL (4.0-5.20); Red Cell Distribution Width 15.7 % (11.8-14.3)
[2023-12-29 08:12] LABS: Anion Gap 7 (5-15); Carbon Dioxide 27 mmol/L (20-30); Chloride 111 mmol/L (98-107); Potassium 3.5 mmol/L (3.5-5.1); Sodium 145 mmol/L (136-145)
[2023-12-29 08:14] LABS: Calcium 9.8 mg/dL (8.7-10.4)
[2023-12-29 08:18] LABS: BUN/Creatinine Ratio 11.6 (10.0-20.0); Blood Urea Nitrogen 10 mg/dL (9-23); Glucose 87 mg/dL (74-106)
[2023-12-29] MEDS ORDERED: LIDOCAINE VISCOUS 2% 15ML UD ONE (11:50)
[2023-12-29] MEDS ORDERED: SODIUM CHLORIDE LOCK 0 ML ONE (11:50)
[2023-12-29] MEDS ORDERED: fentaNYL CITRATE 100 MCG/2 ML VL ONE (11:51)
[2023-12-29] MEDS ORDERED: diphenhdrAMINE HCL 50 MG/1 ML VL ONE (11:51)
[2023-12-29] MEDS ORDERED: MIDAZOLAM HCL 5 MG/ML-1ML VIAL ONE (11:51)
[2023-12-29] MEDS: POTASSIUM CHL 20 Meq TABLET PO ONE (17:20)
[2023-12-30] VITALS (8 sets, daily range): BP systolic 130–157; BP diastolic 45–89; PULSE 70–93; RESP 13–20; TEMP 98.1–98.7; O2SAT 95–99
[2023-12-30 06:56] LABS: Basophils # (auto) 0.1 10 ^3/uL (0-0.2); Basophils % (auto) 0.6 % (0.0-2.0); Eosinophils # (auto) 0.2 10 ^3/uL (0-0.8); Eosinophils % (auto) 2.3 % (0.0-7.0); Hematocrit 36.6 % (36.0-46.0); Hemoglobin 12.1 g/dL (12.2-16.2); Lymphocytes # (auto) 1.3 10 ^3/uL (0.4-5.4); Lymphocytes % (auto) 15.9 % (10.0-50.0); Mean Corpuscular Hemoglobin 33.2 pg (28.0-32.0); Mean Corpuscular Hgb Conc. 33.1 g/dL (32.0-36.0); Mean Corpuscular Volume 100.3 fL (80.0-100.0); Monocytes # (auto) 0.4 10 ^3/uL (0-1.3); Monocytes % (auto) 5.2 % (0.0-12.0); Neutrophils # (auto) 6.2 10 ^3/uL (1.6-8.6); Nucleated Red Blood Cells % 0.1 %; Platelet Count (auto) 236 10^3/uL (140-450); Red Blood Cells 3.65 10^6/uL (4.0-5.20); White Blood Cell 8.2 10^3/uL (4.4-10.8)
[2023-12-30 07:18] LABS: Chloride 111 mmol/L (98-107); Potassium 3.5 mmol/L (3.5-5.1); Sodium 143 mmol/L (136-145)
[2023-12-30 07:19] LABS: Anion Gap 10 (5-15); Carbon Dioxide 22 mmol/L (20-30)
[2023-12-30 07:20] LABS: Calcium 9.7 mg/dL (8.7-10.4)
[2023-12-30 07:24] LABS: Glucose 91 mg/dL (74-106)
[2023-12-30 07:25] LABS: BUN/Creatinine Ratio 11.3 (10.0-20.0); Blood Urea Nitrogen 9 mg/dL (9-23)
[2023-12-30] MEDS ORDERED: SODIUM CHLORIDE LOCK 10 ML ONE (09:26)
[2023-12-30] MEDS ORDERED: fentaNYL CITRATE 100 MCG/2 ML VL ONE ×2 (09:26→14:37)
[2023-12-30] MEDS ORDERED: MIDAZOLAM HCL 5 MG/ML-1ML VIAL ONE (09:26)
[2023-12-30] MEDS ORDERED: LIDOCAINE VISCOUS 2% 15ML UD ONE (09:26)
[2023-12-30] MEDS ORDERED: diphenhdrAMINE HCL 50 MG/1 ML VL ONE (09:26)
[2023-12-30] MEDS ORDERED: ROCURONIUM 10MG/ML 10ML VIAL IV ONE (14:29)
[2023-12-30] MEDS ORDERED: CIPROFLOXACIN 400MG/200ML 200 ML IV ONE (14:36)
[2023-12-30] MEDS ORDERED: MIDAZOLAM HCL 2MG/2ML 2ml VIAL (1mg/ml) ONE (14:37)
[2023-12-30] MEDS ORDERED: LIDOCAINE 2% (LOCAL ANESTH.) PF 5ml SDV ONE (14:46)
[2023-12-30] MEDS ORDERED: IOHEXOL 300 MG/ML 100ML BOTTLE IJ ONE (15:15)
[2023-12-30] MEDS: SODIUM CHLORIDE 0.9% 1,000 ML IV ONE (16:00)
[2023-12-30] MEDS ORDERED: NEOSTIGMINE 1 MG/ML INJ (10mg/10ML VIAL) ONE (16:21)
[2023-12-30] MEDS ORDERED: PROPOFOL 10 MG/ML 20 ML IV ONE (16:22)
[2023-12-30] MEDS ORDERED: ONDANSETRON HCL 4 MG/2 ML VIAL ONE (16:22)
[2023-12-30] MEDS ORDERED: GLYCOPYRROLATE 0.2 MG/ML 1ML VIAL ONE (16:22)
[2023-12-30] MEDS: SUCRALFATE 1 GM/10 ML ORAL SUSP GT SCH (17:00)
[2023-12-30] MEDS: ONDANSETRON HCL 4 MG/2 ML VIAL IV ONE (17:00)
[2023-12-30] MEDS: KETOROLAC TROMETH 30 MG/ML 1ML VIAL IV ONE (17:00)
[2023-12-30] MEDS: NYSTATIN (MOUTH-THROAT) 500,000 UNITS/5 ML SUSP MT SCH (18:00)
[2023-12-30] MEDS: PANTOPRAZOLE 40 MG TAB PO SCH (21:19)
[2023-12-30] MEDS: SUCRALFATE 1 GM/10 ML ORAL SUSP PO SCH (22:53)
[2023-12-31 01:00] VITALS: BP 137/61; PULSE 70; RESP 18; TEMP 98.3; O2SAT 96
[2023-12-31 05:00] VITALS: BP 136/40; PULSE 70; RESP 18; TEMP 98.6; O2SAT 95
[2023-12-31] MEDS ORDERED: PANT40T PO (07:48)
[2023-12-31] MEDS ORDERED: CIPR-173 PO (07:48)
[2023-12-31] MEDS ORDERED: SUCR1SUS26 PO (07:48)
[2023-12-31] MEDS ORDERED: NYS5LQ MT (07:48)
[2023-12-31 09:00] VITALS: BP 129/59; PULSE 75; RESP 18; TEMP 98.2; O2SAT 97
[2023-12-31 13:00] VITALS: BP 152/56; PULSE 70; RESP 19; TEMP 98.6; O2SAT 96
== END 2023-12-31 14:30 | disposition home or self-care (01) | DRG 381 ==
LOC: ER 10:15 → OVERFLOW 15:30 → WEST WING 17:44
PROVIDERS: ADMIT Nurse Practitioner; ATTEND Internal Medicine
PROC: 0DB58ZX Excision of Esophagus, Via Natural or Artificial Opening Endoscopic, Diagnostic (ICD-10-PCS; 2023-12-30)
PROC: BT1D1ZZ Fluoroscopy of Right Kidney, Ureter and Bladder using Low Osmolar Contrast (ICD-10-PCS; 2023-12-30)
PROC: 0TF3XZZ Fragmentation in Right Kidney Pelvis, External Approach (ICD-10-PCS; 2023-12-30)
PROC: 0DB98ZX Excision of Duodenum, Via Natural or Artificial Opening Endoscopic, Diagnostic (ICD-10-PCS; principal; 2023-12-30 14:37)
PROC: 0DB78ZX Excision of Stomach, Pylorus, Via Natural or Artificial Opening Endoscopic, Diagnostic (ICD-10-PCS; 2023-12-30 14:37)
DX: K22.10 Ulcer of esophagus without bleeding (principal); B37.81 Candidal esophagitis; N30.00 Acute cystitis without hematuria; D68.9 Coagulation defect, unspecified; N17.9 Acute kidney failure, unspecified; D68.59 Other primary thrombophilia; N20.0 Calculus of kidney; I12.9 Hypertensive chronic kidney disease with stage 1 through stage 4 chronic kidney disease, or unspecified chronic kidney disease; E87.6 Hypokalemia; E78.5 Hyperlipidemia, unspecified; I48.0 Paroxysmal atrial fibrillation; N18.9 Chronic kidney disease, unspecified; D25.9 Leiomyoma of uterus, unspecified; N95.9 Unspecified menopausal and perimenopausal disorder; E66.01 Morbid (severe) obesity due to excess calories; K44.9 Diaphragmatic hernia without obstruction or gangrene; K29.70 Gastritis, unspecified, without bleeding; Z88.1 Allergy status to other antibiotic agents; Z90.49 Acquired absence of other specified parts of digestive tract; Z87.442 Personal history of urinary calculi; I69.30 Unspecified sequelae of cerebral infarction; Z83.3 Family history of diabetes mellitus; Z82.49 Family history of ischemic heart disease and other diseases of the circulatory system; Z95.0 Presence of cardiac pacemaker; Z79.01 Long term (current) use of anticoagulants; Z79.899 Other long term (current) drug therapy; Z68.37 Body mass index [BMI] 37.0-37.9, adult
CPT/HCPCS: 36415; 43239; 71045; 74018; 74176; 76700; 76856; 80048; 80053; 81001; 83690; 83735; 84484; 85025; 85610; 85730; 86850; 86900; 86901; 87086; 93005; 93306; 96365; 96375; G0378; J1956; J2001; J2250; J2405; J2704; J3480; J3490

== ENCOUNTER 2024-02-25 12:35 | Inpatient (IN) | payer OTHER ==
[~2024-02-25] VITALS: Ht 154.9 cm; Wt 99.1 kg
[~2024-02-25 12:35] MED LIST changes: +AMIO200T13 PO; +AMLO1TAB23 PO; +APIX5TAB PO; +ATOR40TA52 PO; -CEFP200T15 PO; +FURO40TA4 PO; +LOSA-534 PO; +METO-289 PO; -NITR-87 PO; +NYS5LQ MT; -ONDA-155 PO; +PANT40T PO; +POTA-228 PO; +SERT-160 PO; +SUCR1SUS26 PO; +SUCR1TAB PO; -TRAM50TA2 PO; +TRAZ-227 PO; +TRIA37.586 PO
--- NOTE | 2024-02-25 14:00 | DVH ---
Exam: CT CT AB PEL WO CON-NO ORAL OR IV History: abd pain Comparison Study: CT CT AB PEL WITH ORAL CON ONLY on DOS: 12/29/23, CT CT AB PEL WO CON-NO ORAL OR IV on DOS: 12/21/23, CT CT AB PEL WO CON-NO ORAL OR IV on DOS: 09/13/23 Technique: Multidetector spiral CT of the abdomen and pelvis was performed from lung bases to pubic symphysis. Imaging was performed without IV contrast. Axial, coronal and sagittal multiplanar reform ats were obtained from the axial data set by the technologist. Radiation dose : Abdomen/Pelvis: CTDIvol 23 mGy, DLP 1224.62 mGy*cm. Findings: Evaluation of solid organs is limited due to lack of intravenous contrast use. Lung Bases: No acute or significant lung base finding. Normal heart size. No pleural or pericardial effusion. Liver: Hypodensity along the falciform ligament, likely related to focal fatty infiltration. Gallbladder and biliary Tree: Surgically absent Spleen: Unremarkable Pancreas: The pancreas is grossly normal in appearance. Adrenal Glands: Unremarkable Kidneys: Few right renal calculi, largest measuring up to 7 mm. No hydronephrosis. Bladder: Grossly unremarkable for degree of distention. Bowel: The stomach is grossly normal in appearance. Small bowel and colon are normal in caliber and d istribution. The appendix is not visualized; however, no secondary findings of acute appendicitis id entified. Ascites: Absent Lymphadenopathy: No mesenteric, retroperitoneal or periportal lymphadenopathy. Abdominal wall and Mesentery: Unremarkable. Vasculature: Calcified atherosclerotic disease. Pelvic Organs: Calcified fibroid in the uterus. Musculoskeletal: No aggressive focal bony lesions, acute fractures or dislocation. IMPRESSION: 1. No acute abdominal or pelvic findings. Multiple nonobstructive right renal calculi. Likely focal f atty infiltration in the liver along the falciform ligament. This could be further evaluated with MRI of the abdomen with contrast. Calcified fibroid in the uterus. Radiation optimization: All CT scans at this facility use at least one of these dose optimization moses hniques: Automated exposure control mA and/or kV adjustment per patient size (includes targeted exams where dose is matched to clinical indication) or iterative reconstruction. HS:Y
--- NOTE | 2024-02-25 15:14 | ED.PDOC ---
GI ASSESSMENT HPI Comments 73 y.o female BIB spouse, presents to the ED for a chief complaint of abdominal pain that started 2- 3 days ago associated with diarrhea today. Patient reports pain is intermittent but progressively worsened today. Spouse reports similar pain in the past, was seen on December 2023 at this hospital last with abdominal pain, had an EGD done which showed a fungal infection, kidney stones, and a hiatal hernia. Patient was treated for these diagnoses and had kidney stones surgically removed. Patient denies any nausea, vomiting, fever, chills, bloody stool, rectal bleeding, hematuria, or urinary symptoms. Patient is currently on Eliquis. 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 Patient reports allergies to Morphine and Cephalexin Vitals BP: 100/39 HR: 71 Temp: 97.6 F SpO2: 96% RA RR: 17 Past medical history: UTI, kidney stones, CVA with left sided deficits, Eliquis use Past surgical history: Kidney stone removal, cholecystectomy, BL mastectomy, and pacemaker/ Chief Complaint: Abdominal Pain Primary Care Provider: ANGEL Allergies: Coded Allergies: Cephalexin (Verified Allergy, Unknown, 05/24/23) Morphine (Verified Allergy, Unknown, 02/25/24) Home Meds Active Scripts Sucralfate (CARAFATE SUSP) 1 Gm/10 Ml Ss, 1 GM PO QID@0600,1130,1700,2200 for 30 Days, #90 ML Prov:BRENNAN DARBY MD 12/31/23 Pantoprazole Sodium Sesquihydr (Pantoprazole Sodium) 40 Mg Tab, 40 MG PO BID for 30 Days, #60 TAB Prov:BRENNAN DARBY MD 12/31/23 Nystatin (Mouth-Throat) (Mycostatin (Mouth-Throat)) 500,000 Units/5 Ml Ss, 5 ML MT QID for 14 Days, #90 ML Prov:BRENNAN DARBY MD 12/31/23 Ciprofloxacin Hcl (Cipro) 500 Mg Tab, 1 TAB PO BID for 5 Days, #10 TAB Prov:BRENNAN DARBY MD 12/31/23 Hydrocodone-Acetaminophen (Hydrocodone Bitartrate/AC 5-325 mg) 1 Tab Tab, 1 TAB PO DAILY for 5 Days, #5 TAB Prov:RAMSEY CAR MD 12/21/23 Levothyroxine Sodium (Levothyroxine Sodium) 75 Mcg Tab, 88 MCG PO DAILY for 30 Days, #36 TAB 2 Refills Prov:NIC GUY MD 09/18/23 Reported Medications Amlodipine Besylate (Amlodipine Besylate) 10 Mg Tab, 1 TAB PO DAILY 12/24/23 Amiodarone HCl (Amiodarone HCl) 200 Mg Tab, 1 TAB PO BID 12/24/23 Losartan Potassium (Losartan Potassium) 50 Mg Tab, 1 TAB PO DAILY 12/24/23 Atorvastatin Calcium (ATORVASTATIN CALCIUM) 40 Mg Tab, 1 TAB PO DAILY 12/24/23 Metoprolol Succinate (Metoprolol Succinate Er) 50 Mg Tab, 1 TAB PO DAILY 12/24/23 Sertraline Hcl (Sertraline Hcl) 100 Mg Tab, 1 TAB PO DAILY 12/24/23 Furosemide (Furosemide) 40 Mg Tab, 1 TAB PO DAILY 12/24/23 Mode of Arrival: Ambulatory Past Medical History PAST MEDICAL HISTORY: Cancer, CVA, HTN, Kidney Stones Surgical History: Cholecystectomy, Tonsillectomy 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 FITTER'S ASSISTANT History Family History Family History: Family hx of Cancer Social History Smoker: Non-Smoker Alcohol: Denies ETOH Use Drugs: Denies Drug Use Lives In: Home X-Ray, Labs, Meds, VS Vital Signs Date Time Temp Pulse Resp B/P (MAP) Pulse Ox O2 Delivery O2 Flow Rate FiO2 02/25/24 13:00 70 02/25/24 12:55 97.8 71 17 100/39 (59) 96 Lab Test 02/25/24 14:56 Range/Units White Blood Count Pending Red Blood Count Pending Hemoglobin Pending Hematocrit Pending Mean Corpuscular Volume Pending Mean Corpuscular Hemoglobin Pending Mean Corpuscular Hemoglobin Concent Pending Red Cell Distribution Width Pending Platelet Count Pending Mean Platelet Volume Pending Neutrophils (%) (Auto) Pending Lymphocytes (%) (Auto) Pending Monocytes (%) (Auto) Pending Basophils (%) (Auto) Pending Neutrophils # (Auto) Pending Lymphocytes # (Auto) Pending Monocytes # (Auto) Pending Sodium Level Pending Potassium Level Pending Chloride Level Pending Carbon Dioxide Level Pending Anion Gap Pending Blood Urea Nitrogen Pending Creatinine Pending Glomerular Filtration Rate Calc Pending BUN/Creatinine Ratio Pending Serum Glucose Pending Lactic Acid Level Pending Calcium Level Pending Total Bilirubin Pending Aspartate Amino Transferase (AST) Pending Alanine Aminotransferase (ALT) Pending Alkaline Phosphatase Pending Troponin I High Sensitivity Pending Total Protein Pending Albumin Pending Lipase Pending I personally scribed for BLESSING BEACH DO ([email or web address]) on 02/25/24 at 15:14. Electronically submitted by Eleanor Camara ([facility]). I personally scribed for BLESSING BEACH DO ([email or web address]) on 02/25/24 at 15:15. Electron[facility] by [facility] Cam[facility] BLESSING BE[place] DO Feb 25, 2024 15:14
--- NOTE | 2024-02-25 15:16 | ED.PDOC ---
GI ASSESSMENT HPI Comments 73 y.o female BIB spouse, presents to the ED for a chief complaint of abdominal pain that started 2- 3 days ago associated with diarrhea today. Patient reports pain is intermittent but progressively worsened today. Spouse reports similar pain in the past, was seen on December 2023 at this hospital last with abdominal pain, had an EGD done which showed a fungal infection, kidney stones, and a hiatal hernia. Patient was treated for these diagnoses and had kidney stones surgically removed. Patient denies any nausea, vomiting, fever, chills, bloody stool, rectal bleeding, hematuria, or urinary symptoms. Patient is currently on Eliquis. 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 Patient reports allergies to Morphine and Cephalexin Vitals BP: 100/39 HR: 71 Temp: 97.6 F SpO2: 96% RA RR: 17 Past medical history: UTI, kidney stones, CVA with left sided deficits, Eliquis use Past surgical history: Kidney stone removal, cholecystectomy, BL mastectomy, and pacemaker/ Albino HPI: Poor Historian. Past Medcial History: Past Surgical History: REVIEW OF SYSTEMS: CONSTITUTIONAL: Denies acute: fever, diaphoresis, chills, HEAD: Denies acute: headache, photophobia Eyes: Denies acute: Double vision, vision loss, eye pain, eye discharge. EARS: Denies acute: tinnitus, hearing loss, ear discharge, ear pain, THROAT: Denies acute: sore throat, swelling, difficulty swallowing , pain with swallowing, change in voice. NECK: Denies acute: neck pain, neck swelling, stiff neck. HEART: Denies acute : chest pain, palpitations, LUNGS: Denies acute: SOB, wheezing, cough, hemoptysis ABDOMEN: Denies acute: Nausea, Vomiting, diarrhea, melena , hematemesis, hematochezia SKIN: Denies acute: rash, redness, lesions, itchiness. EXTREMITIES: Denies acute: calf pain, numbness, tingling, weakness, denies pain in extremity. Denies acute: Low back pain. Neuro: Denies acute: focal neurological deficit, motor or sensory focal neurological d eficit, tremors, seizure like activity, confusion, dizziness, change in mental status, loss of bowel or bladder function, cauda equina like symptoms. : Denies acute: dysuria, hematuria, flank pain, increase in urinary frequency. PSYCH: Denies acute: hallucination, suicidal ideation, homicidal ideation. FEMALE: Denies acute: abnormal vaginal bleeding, foul odor, unusual discharge. PHYSICAL EXAM: General: no acute distress, awake and alert. Head: normocephalic, atraumatic. Neck: supple, trachea is midline, no swelling. Throat: Normal phonation. Eyes:, no erythema, no purulent discharge, no proptosis, no icterus. Heart: regular rate, regular rhythm, no significant murmur appreciated. Lungs: no apparent respiratory distress, Able to speak in full sentences. No wheezing, no rhonchi, no crackles. No stridors Clear to auscultation bilaterally. Abdomen: epig tender to palpation, non distended, soft, no guarding, no rebound, + bowel sounds. Neuro: Awake, Alert, oriented to name, self, situation, follows commands GCS=15. Speech is normal. Skin: no petechia, no purpura, no cyanosis, non-pale, not jaundice. Lower extremities: --no - Pitting edema no deformity, no focal swelling, no calf TTP. Makes eye contact. Face: no apparent facial droop. History of stroke with left side deficit. Chief Complaint: Abdominal Pain Time Seen by MD: 14:56 Primary Care Provider: ANGEL Reviewed Notes: Nurses Notes, Allergies Allergies: Coded Allergies: Cephalexin (Verified Allergy, Unknown, 05/24/23) Morphine (Verified Allergy, Unknown, 02/25/24) Home Meds Active Scripts Sucralfate (CARAFATE SUSP) 1 Gm/10 Ml Ss, 1 GM PO QID@0600,1130,1700,2200 for 30 Days, #90 ML Prov:BRENNAN DARBY MD 12/31/23 Pantoprazole Sodium Sesquihydr (Pantoprazole Sodium) 40 Mg Tab, 40 MG PO BID for 30 Days, #60 TAB Prov:BRENNAN DARBY MD 12/31/23 Nystatin (Mouth-Throat) (Mycostatin (Mouth-Throat)) 500,000 Units/5 Ml Ss, 5 ML MT QID for 14 Days, #90 ML Prov:BRENNAN DARBY MD 12/31/23 Ciprofloxacin Hcl (Cipro) 500 Mg Tab, 1 TAB PO BID for 5 Days, #10 TAB Prov:BRENNAN DARBY MD 12/31/23 Hydrocodone-Acetaminophen (Hydrocodone Bitartrate/AC 5-325 mg) 1 Tab Tab, 1 TAB PO DAILY for 5 Days, #5 TAB Prov:RAMSEY CAR MD 12/21/23 Levothyroxine Sodium (Levothyroxine Sodium) 75 Mcg Tab, 88 MCG PO DAILY for 30 Days, #36 TAB 2 Refills Prov:NCI GUY MD 09/18/23 Reported Medications Amlodipine Besylate (Amlodipine Besylate) 10 Mg Tab, 1 TAB PO DAILY 12/24/23 Amiodarone HCl (Amiodarone HCl) 200 Mg Tab, 1 TAB PO BID 12/24/23 Losartan Potassium (Losartan Potassium) 50 Mg Tab, 1 TAB PO DAILY 12/24/23 Atorvastatin Calcium (ATORVASTATIN CALCIUM) 40 Mg Tab, 1 TAB PO DAILY 12/24/23 Metoprolol Succinate (Metoprolol Succinate Er) 50 Mg Tab, 1 TAB PO DAILY 12/24/23 Sertraline Hcl (Sertraline Hcl) 100 Mg Tab, 1 TAB PO DAILY 12/24/23 Furosemide (Furosemide) 40 Mg Tab, 1 TAB PO DAILY 12/24/23 Information Source: Patient, Spouse Mode of Arrival: Ambulatory Past Medical History PAST MEDICAL HISTORY: Cancer, CVA, HTN, Kidney Stones Surgical History: Cholecystectomy, Tonsillectomy MOTORS ASSEMBLER History: No Pertinent MOTORS ASSEMBLER History Family History Family History: Family hx of Cancer Social History Smoker: Non-Smoker Alcohol: Denies ETOH Use Drugs: Denies Drug Use Lives In: Home Was a procedure done? Was a procedure done?: No GI differential Dx Differential Diagnosis: Gastritis/PUD, Gastroenteritis, Electrolyte Imbalance, Viral, Other (DDX include Diverticulitis, colitis, gastroenteritis, acute abdomen, SBO, enteritis, constipation, volvulus, appendicitis, Gallbladder disease, choledocolithiasis, ascending cholangitis, pancreatitis, intraAbdominal mass/neoplasm, hepatitis, UTI, pylonephritis, kidney stone, aneurysm, dissection, Inflammatory bowel disease, gastroparesis, ischemic bowel, ovarian torsion, ovarian cyst/mass, tubo-ovarian abscess, ) X-Ray, Labs, Meds, VS Vital Signs Date Time Temp Pulse Resp B/P (MAP) Pulse Ox O2 Delivery O2 Flow Rate FiO2 02/25/24 17:40 71 16 114/70 (85) 98 02/25/24 16:37 97.7 79 17 117/52 (73) 97 97.7 02/25/24 16:37 78 17 97 Room Air 02/25/24 13:00 70 02/25/24 12:55 97.8 71 17 100/39 (59) 96 Lab Test 02/25/24 18:03 02/25/24 15:44 02/25/24 14:56 Range/Units Troponin I High Sensitivity 48 *H 49 *H 50 *H </=34 ng/L White Blood Count 8.8 4.4-10.8 10^3/uL Red Blood Count 3.93 L 4.0-5.20 10^6/uL Hemoglobin 13.0 12.2-16.2 g/dL Hematocrit 37.8 36.0-46.0 % Mean Corpuscular Volume 96.1 80.0-100.0 fL Mean Corpuscular Hemoglobin 33.0 H 28.0-32.0 pg Mean Corpuscular Hemoglobin Concent 34.3 32.0-36.0 g/dL Red Cell Distribution Width 15.1 H 11.8-14.3 % Platelet Count 314 140-450 10^3/uL Mean Platelet Volume 8.1 6.9-10.8 fL Neutrophils (%) (Auto) 81.1 H 37.0-80.0 % Lymphocytes (%) (Auto) 13.2 10.0-50.0 % Monocytes (%) (Auto) 4.5 0.0-12.0 % Eosinophils (%) (Auto) 0.4 0.0-7.0 % Basophils (%) (Auto) 0.8 0.0-2.0 % Neutrophils # (Auto) 7.1 1.6-8.6 10 ^3/uL Lymphocytes # (Auto) 1.2 0.4-5.4 10 ^3/uL Monocytes # (Auto) 0.4 0-1.3 10 ^3/uL Eosinophils # (Auto) 0 0-0.8 10 ^3/uL Basophils # (Auto) 0.1 0-0.2 10 ^3/uL Nucleated Red Blood Cells 0.2 % Sodium Level 143 136-145 mmol/L Potassium Level 2.6 L 3.5-5.1 mmol/L Chloride Level 104 98-107 mmol/L Carbon Dioxide Level 25 20-31 mmol/L Anion Gap 14 5-15 Blood Urea Nitrogen 50 H 9-23 mg/dL Creatinine 4.06 H 0.550-1.02 mg/dL Glomerular Filtration Rate Calc 11 >90 mL/min BUN/Creatinine Ratio 12.3 10.0-20.0 Serum Glucose 108 H 74-106 mg/dL Lactic Acid Level 1.4 0.4-2.0 mmol/L Calcium Level 9.6 8.7-10.4 mg/dL Total Bilirubin 0.7 0.2-1.0 mg/dL Aspartate Amino Transferase (AST) 64 H 13-40 U/L Alanine Aminotransferase (ALT) 56 H 7-40 U/L Alkaline Phosphatase 107 46-116 U/L Total Protein 6.6 5.7-8.2 g/dL Albumin 4.5 3.2-4.8 g/dL Lipase 33 12-53 U/L Current Medications Medications (Trade) Dose Ordered Sig/Miranda Route Start Time Stop Time Status Last Admin Lidocaine HCl (Xylocaine 2% Viscous) 10 ml ONCE ONCE PO 02/25/24 15:45 02/25/24 15:46 DC 02/25/24 16:01 Sucralfate (Carafate Tab) 1 gm ONCE ONCE PO 02/25/24 15:45 02/25/24 15:46 DC 02/25/24 16:01 Pantoprazole Sodium (Protonix Tablet) 40 mg ONCE ONCE PO 02/25/24 15:45 02/25/24 15:46 DC 02/25/24 16:02 [place] [id number] Ph: [phone] DIAGNOSTIC IMAGING Diagnostic Imaging Report : [id number] Signed PATIENT: CALIN SIMON ACCT: [id number] UNIT: [id number] : 1950 LOC: ER ROOM / BED: / AGE / SEX: 73 / F ADM STATUS: REG ER SERVICE 1554 ORDERING PHYSICIAN: BL[place] DO PROCEDURE(s): CXRP - CHEST PORTABLE REASON: epig pain ORDER NUMBER(s): [id number], ACCESSION NUMBER(s): [id number] CHEST RADIOGRAPH Indication: epig pain Technique: Single frontal view of the chest was obtained COMPARISON: None FINDINGS: Lines and Tubes: Left chest wall pacemaker. Lungs: Clear Pleura: No effusion. No pneumothorax. Cardiomediastinal contours: Unremarkable Bones: Unremarkable IMPRESSION: No acute disease. ATED BY: OMERO GODOY MD DICTATED DATE/TIME: 02/25/241628 SIGNED BY: OMERO GODOY MD SIGNED DATE/TIME: 02/25/241628 CC: [place] [address] Ph: [phone] DIAGNOSTIC IMAGING Diagnostic Imaging Report : [id number] Signed PATIENT: CALIN SIMON ACCT: [id number] UNIT: [id number] : 1950 LOC: ER ROOM / BED: / AGE / SEX: 73 / F ADM STATUS: REG ER SERVICE 1307 ORDERING PHYSICIAN: BLESSING [place]ACH DO PROCEDURE(s): ABPL - CT AB PEL WO CON-NO ORAL OR IV REASON: abd pain ORDER NUMBER(s): [id number], ACCESSION NUMBER(s): [id number] Exam: CT CT AB PEL WO CON-NO ORAL OR IV History: abd pain Comparison Study: CT CT AB PEL WITH ORAL CON ONLY on DOS: 12/29/23, CT CT AB PEL WO CON-NO ORAL OR IV on DOS: 12/21/23, CT CT AB PEL WO CON-NO ORAL OR IV on DOS: 09/13/23 Technique: Multidetector spiral CT of the abdomen and pelvis was performed from lung bases to pubic symphysis. Imaging was performed without IV contrast. Axial, coronal and sagittal multiplanar reformats were obtained from the axial data set by the technologist. Radiation dose : Abdomen/Pelvis: CTDIvol 23 mGy, DLP 1224.62 mGy*cm. Findings: Evaluation of solid organs is limited due to lack of intravenous contrast use. Lung Bases: No acute or significant lung base finding. Normal heart size. No pleural or pericardial effusion. Liver: Hypodensity along the falciform ligament, likely related to focal fatty infiltration. Gallbladder and biliary Tree: Surgically absent Spleen: Unremarkable Pancreas: The pancreas is grossly normal in appearance. Adrenal Glands: Unremarkable Kidneys: Few right renal calculi, largest measuring up to 7 mm. No hy dronephrosis. Bladder: Grossly unremarkable for degree of distention. Bowel: The stomach is grossly normal in appearance. Small bowel and colon are normal in caliber and distribution. The appendix is not visualized; however, no secondary findings of acute appendicitis identified. Ascites: Absent Lymphadenopathy: No mesenteric, retroperitoneal or periportal lymphadenopathy. Abdominal wall and Mesentery: Unremarkable. Vasculature: Calcified atherosclerotic disease. Pelvic Organs: Calcified fibroid in the uterus. Musculoskeletal: No aggressive focal bony lesions, acute fractures or dislocation. IMPRESSION: 1. No acute abdominal or pelvic findings. Multiple nonobstructive right renal calculi. Likely focal fatty infiltration in the liver along the falciform ligament. This could be further evaluated with MRI of the abdomen with contrast. Calcified fibroid in the uterus. Radiation optimization: All CT scans at this facility use at least one of these dose optimization techniques: Automated exposure control mA and/or kV adjustment per patient size (includes targeted exams where dose is matched to clinical indication) or iterative reconstruction. HS:Y ATED BY: PERFECTO HEARD MD DICTATED DATE/TIME: 02/25/24 1358 SIGNED BY: PERFECTO HEARD MD SIGNED DATE/TIME: 02/25/24 1358 CC: Time of 1ST Reevaluation: 15:16 Reevaluation 1ST: Unchanged Patient Education/Counseling: Diagnosis, Treatment Family Education/Counseling: No Family Present Comments Patient presented with the above HPI.---epigastric pain---workup was initiated. patient was found with the above mentioned diagnosis. Patient was given: Protonix, lidocaine viscous, Carafate Patient ED course and VS have been stabilized. Patient has been reassessed in the ED and remained in a stable condition. Pertinent incidental findings were discussed with the patient and/or family. Patient/family voices understanding and is agreeable with plan. Patient has been observed in the ED adequate length of time to insure improvement/stability. patient was admitted to the medicine team for further evaluation and treatment of their presentation. All the reports of any imaging studies that were ordered by myself were reviewed by myself. Departure 1 Departure Time of Disposition: 15:56 Impression: Primary Impression: Epigastric pain Additional Impressions: Elevated troponin Hypokalemia Acute renal insufficiency Disposition: ADMITTED INPATIENT Admit to: Tele Condition: Guarded Discharged With: Self, Spouse Critical Care Note Critical Care Time?: Yes (45 min-critical care time only) I personally scribed for BLESSING [place] DO ([email or web address]) on 02/25/24 at 15:16. Electronically submitted by Eleanor Camara ([facility]). I personally scribed for [place] DO ([email or web address]) on 02/25/24 at 15:56. Electronically submitted by Eleanor Camara ([facility]). I personally scribed for BLESSING [place] DO ([email or web address]) on 02/25/24 at 16:47. Electronically submitted by Eleanor Camara ([facility]). BLESSING [place] DO Feb 25, 2024 15:16
[2024-02-25 15:29] LABS: Basophils # (auto) 0.1 10 ^3/uL (0-0.2); Basophils % (auto) 0.8 % (0.0-2.0); Eosinophils # (auto) 0 10 ^3/uL (0-0.8); Eosinophils % (auto) 0.4 % (0.0-7.0); Hematocrit 37.8 % (36.0-46.0); Lymphocytes # (auto) 1.2 10 ^3/uL (0.4-5.4); Lymphocytes % (auto) 13.2 % (10.0-50.0); Mean Corpuscular Hgb Conc. 34.3 g/dL (32.0-36.0); Mean Corpuscular Volume 96.1 fL (80.0-100.0); Monocytes # (auto) 0.4 10 ^3/uL (0-1.3); Monocytes % (auto) 4.5 % (0.0-12.0); Neutrophils # (auto) 7.1 10 ^3/uL (1.6-8.6); Neutrophils % (auto) 81.1 % (37.0-80.0); Nucleated Red Blood Cells % 0.2 %; Platelet Count (auto) 314 10^3/uL (140-450); Red Blood Cells 3.93 10^6/uL (4.0-5.20); Red Cell Distribution Width 15.1 % (11.8-14.3); White Blood Cell 8.8 10^3/uL (4.4-10.8)
[2024-02-25 15:41] LABS: Alanine Aminotransferase 56 U/L (7-40); Albumin 4.5 g/dL (3.2-4.8); Alkaline Phosphatase 107 U/L (46-116); Anion Gap 14 (5-15); Aspartate Aminotransferase 64 U/L (13-40); BUN/Creatinine Ratio 12.3 (10.0-20.0); Bilirubin, Total 0.7 mg/dL (0.2-1.0); Blood Urea Nitrogen 50 mg/dL (9-23); Calcium 9.6 mg/dL (8.7-10.4); Carbon Dioxide 25 mmol/L (20-31); Chloride 104 mmol/L (98-107); Glucose 108 mg/dL (74-106); Lipase 33 U/L (12-53); Potassium 2.6 mmol/L (3.5-5.1); Sodium 143 mmol/L (136-145); Total Protein 6.6 g/dL (5.7-8.2)
[2024-02-25] MEDS: SUCRALFATE 1 GM TAB PO ONE (16:01)
[2024-02-25] MEDS: LIDOCAINE VISCOUS 2% 15ML UD PO ONE (16:01)
[2024-02-25] MEDS: PANTOPRAZOLE 40 MG TAB PO ONE (16:02)
--- NOTE | 2024-02-25 16:33 | DVH ---
CHEST RADIOGRAPH Indication: epig pain Technique: Single frontal view of the chest was obtained COMPARISON: None FINDINGS: Lines and Tubes: Left chest wall pacemaker. Lungs: Clear Pleura: No effusion. No pneumothorax. Cardiomediastinal contours: Unremarkable Bones: Unremarkable IMPRESSION: No acute disease.
[2024-02-25] MEDS ORDERED: NITROGLYCERIN 0.4 MG SL TAB SL PRN (22:00)
[2024-02-25] MEDS ORDERED: MORPHINE SULFATE INJ 2 MG/ml SYRG IV PRN ×2 (22:00)
[2024-02-25] MEDS ORDERED: ACETAMINOPHEN 325 MG TAB PO PRN (22:00)
[2024-02-25] MEDS ORDERED: POTASSIUM CHLORIDE 40 MEQ, LIDOCAINE 1% (LOCAL ANESTH.) 4 ML in SODIUM CHL 0.9% 250 ML IV ONE (22:00)
[2024-02-25] MEDS: SODIUM CHLOR 0.9% PF (SALINE LOCK) 10ML VIAL/SYR IV SCH (22:12)
--- NOTE | 2024-02-25 22:35 | DVHHPRES ---
History of Present Illness Resident Creating Document: ROMI AGUILLON RESIDENT History of Present Illness Patient is 73 years old female with past medical history of hypertension, atrial fibrillation, CBD, carcinoma of the breast, kidney stone came with a complain of abdominal pain. As per patient patient started having upper abdominal pain 7 days before. Pain started gradually, crampy, excluding in nature, it was up to 9/10 in severity, no radiation, increased with, gets some relief with empty stomach. Patient had nausea and vomiting once with clear fluid. Patient also reported that she had loose motion once in 2 days before and 1 today, watery, no blood. Patient reported that she had passed urine around 12 noon today. Patient was admitted in December with acute abdominal pain and was diagnosed with esophageal candidiasis. Patient denied any chest pain, shortness of breath, dysuria, acute joint pain or swelling, dysarthria, change in vision. Initial lab workup revealed hypokalemia potassium 2.6, CARLOYN serum creatinine 4.06, GFR 11, mild transaminitis AST 64, ALT 56. Scan of the abdomen and pelvis revealed-No acute abdominal or pelvic findings. Multiple nonobstructive right renal calculi. Likely focal fatty infiltration in the liver along the falciform ligament. This could be further evaluated with MRI of the abdomen with contrast. Calcified fibroid in the uterus. Review of Systems Review of Systems Allergy- cephalexin, morphine Patient was seen today at the bedside. Patient reports some abdominal pain Cardiovascular- deny acute chest pain or shortness of breath or cough or palpitation Respiratory- denies cough or short of breath or wheezing Gastrointestinal- denies any rectal bleeding Musculoskeletal-denies acute joint swelling or tenderness or redness Neurological- denies acute dysarthria, dysphagia, change in vision Psychiatry- denies depression or SI or HI Skin- denies acute rash or purpura Allergies: Coded Allergies: Cephalexin (Verified Allergy, Unknown, 05/24/23) Morphine (Verified Allergy, Unknown, 02/25/24) Medications Current Medications Medications Dose Ordered Sig/Miranda Route Start Time Stop Time Status Last Admin Dose Admin Sodium Chloride 10 ml Q8HR IV 02/25/24 22:00 02/25/24 22:12 10 ML Ondansetron HCl 4 mg Q4HP PRN IV 02/25/24 22:00 Enoxaparin Sodium 30 mg DAILY SC 02/26/24 10:00 Acetaminophen 650 mg Q6HP PRN PO 02/25/24 22:00 Morphine Sulfate 2 mg Q4HPRN PRN IV 02/25/24 22:00 UNV Nitroglycerin 0.4 mg Q5MINP PRN SL 02/25/24 22:00 Morphine Sulfate 2 mg Q30M PRN IV 02/25/24 22:00 UNV Potassium Chloride 100 ml @ 50 mls/hr Q2H IV 02/25/24 22:30 02/26/24 02:29 Exam Vital Signs Vital Signs Date Time Temp Pulse Resp B/P (MAP) Pulse Ox O2 Delivery O2 Flow Rate FiO2 02/25/24 17:40 71 16 114/70 (85) 98 02/25/24 16:37 97.7 97.7 02/25/24 16:37 Room Air Exam General examination- awake, alert, conversant HEENT- PEERLA, no acute nasal discharge Cardiovascular- S1-S2 audible, rate and rhythm regular, no murmur Respiratory- CTAB, no wheeze or rhonchi Gastrointestinal-upper abdominal tenderness++, bowel sound+. Nondistended Musculoskeletal-no acute joint swelling or tenderness or redness# Lower extremity- no leg edema Neurological- cranial nerves intact, no acute dysarthria or dysphagia Psychiatry- denies depression or SI or HI Skin- no acute rash or purpura Labs/Xrays Labs Test 02/25/24 18:03 02/25/24 14:56 Range/Units Troponin I High Sensitivity 48 *H </=34 ng/L White Blood Count 8.8 4.4-10.8 10^3/uL Red Blood Count 3.93 L 4.0-5.20 10^6/uL Hemoglobin 13.0 12.2-16.2 g/dL Hematocrit 37.8 36.0-46.0 % Mean Corpuscular Volume 96.1 80.0-100.0 fL Mean Corpuscular Hemoglobin 33.0 H 28.0-32.0 pg Mean Corpuscular Hemoglobin Concent 34.3 32.0-36.0 g/dL Red Cell Distribution Width 15.1 H 11.8-14.3 % Platelet Count 314 140-450 10^3/uL Mean Platelet Volume 8.1 6.9-10.8 fL Neutrophils (%) (Auto) 81.1 H 37.0-80.0 % Lymphocytes (%) (Auto) 13.2 10.0-50.0 % Monocytes (%) (Auto) 4.5 0.0-12.0 % Eosinophils (%) (Auto) 0.4 0.0-7.0 % Basophils (%) (Auto) 0.8 0.0-2.0 % Neutrophils # (Auto) 7.1 1.6-8.6 10 ^3/uL Lymphocytes # (Auto) 1.2 0.4-5.4 10 ^3/uL Monocytes # (Auto) 0.4 0-1.3 10 ^3/uL Eosinophils # (Auto) 0 0-0.8 10 ^3/uL Basophils # (Auto) 0.1 0-0.2 10 ^3/uL Nucleated Red Blood Cells 0.2 % Sodium Level 143 136-145 mmol/L Potassium Level 2.6 L 3.5-5.1 mmol/L Chloride Level 104 98-107 mmol/L Carbon Dioxide Level 25 20-31 mmol/L Anion Gap 14 5-15 Blood Urea Nitrogen 50 H 9-23 mg/dL Creatinine 4.06 H 0.550-1.02 mg/dL Glomerular Filtration Rate Calc 11 >90 mL/min BUN/Creatinine Ratio 12.3 10.0-20.0 Serum Glucose 108 H 74-106 mg/dL Lactic Acid Level 1.4 0.4-2.0 mmol/L Calcium Level 9.6 8.7-10.4 mg/dL Total Bilirubin 0.7 0.2-1.0 mg/dL Aspartate Amino Transferase (AST) 64 H 13-40 U/L Alanine Aminotransferase (ALT) 56 H 7-40 U/L Alkaline Phosphatase 107 46-116 U/L Total Protein 6.6 5.7-8.2 g/dL Albumin 4.5 3.2-4.8 g/dL Lipase 33 12-53 U/L Assessment/Plan Assessment/Plan #Acute abdominal pain likely due to gastritis/pancreatitis -upper abdominal pain, tenderness on palpation -serum lipase 33 - CT abdomen- No acute abdominal or pelvic findings. Multiple nonobstructive right renal calculi. Likely focal fatty infiltration in the liver along the falciform ligament. Calcified fibroid in the uterus. -continue IV normal saline as prescribed -continue pain medication as prescribed -continue pantoprazole 40 mg IV daily -continue sucralfate 1 g p.o. Q 8 H -continue IV fluid as prescribed # suspected acute gastritis --upper abdominal pain, tenderness on palpation -serum lipase 33 - CT abdomen- No acute abdominal or pelvic findings. Likely focal fatty infiltration in the liver along the falciform ligament. -continue IV normal saline as prescribed -continue pain medication as prescribed -continue pantoprazole 40 mg IV daily -continue sucralfate 1 g p.o. Q 8 H # CAROLYN with anuria likely due to dehydration, VMN -serum creatinine 406, BUN 50 -continue IV normal saline 125 mL per hour -avoid dehydration and nephrotoxic drugs --c/w IV fluid as prescribed -strict intake output chart -monitor vitals -Delgado's catheter in place, drained only 25 mL of urine -ordered for uterine sodium, urine creatinine, urine albumin protein ratio, urine osmolality -ordered for ultrasound of the upper abdomen #Loose motion -c/w IV fluid as prescribed -strict intake output chart -monitor vitals # hypokalemia likely due to vomiting -potassium 2.6 -replinished potassium as prescribed -continue IV normal saline as prescribed -repeat CMP #NSTEMI type 2 likely demand related ischemia -troponin I 50> 49> 48 -EKG- sinus rhythm, old inferior NC -echo on 12/26/2023 revealed LVEF 65%, mild LVH and mild LV diastolic dysfunction - # history of right-sided renal calculus, status post ESWLx2 -patient had ESWL x2 by Dr. Barron in September and October 23, 2023 -CT scan of the abdomen- Multiple nonobstructive right renal calculi. -follow up outpatient # atrial fibrillation Continue p.o. b.i.d. # history of CVA with left-sided hemiparesis -continue current medical condition # hypertension -continue hydralazine 10 mg q.6h p.r.n. # hypothyroidism -on 11/30/2023-TSH 8.47 -continue levothyroxine 88 mcg p.o. q.a.m. # transaminitis -AST 64, ALT 56 -monitor CMP Goals of care/advance care planning; FULL CODE; discussed with the patient >15 minutes PUD prophylaxis: Pantoprazole DVT prophylaxis: Eliquis Plan discussed with Dr. Elder, nursing staff, patient Total time spent on patient evaluation, chart review, assessment and plan, discussion discussion >30 minutes Plan discussed with: Patient Plan discussed with: Patient, Spouse, Other (RN) My Orders Orders - ROMI AGUILLON Procedure Category Date Status Time Admit ADMIT 02/25/24 Transmitted 21:59 Code Status CODE 02/25/24 Transmitted 21:59 Sodium Chloride Lock PHA 02/25/24 In Process (Saline Lock Ns) 22:00 Ondansetron Hcl PHA 02/25/24 In Process (Zofran) 22:00 Complete Blood Count LAB 02/26/24 Verified 04:00 Comprehensive LAB 02/26/24 Verified Metabolic Panel 04:00 Cardiac DIET 02/26/24 Transmitted Diet-2gna,Lofat,Lochol Breakfast Acetaminophen Tablet PHA 02/25/24 In Process (Tylenol Tablet) 22:00 Morphine Sulfate PHA 02/25/24 Pending Injection 22:00 Nitroglycerin PHA 02/25/24 In Process Sublingual (Ntrostat 22:00 Morphine Sulfate PHA 02/25/24 Pending Injection 22:00 Oxygen By Nasal RT 02/25/24 Transmitted Cannula 21:59 Stat Ekg For Chest [facility] 02/25/24 In Process Pain 21:59 Notify Of Changes [facility] 02/25/24 In Process From Base 21:59 Process Cheese Cooker For [facility] 02/25/24 In Process 24 Hours 21:59 Emergency Dysrhythmia [facility] 02/25/24 In Process Protocol 21:59 Rhythm Strips Once [facility] 02/25/24 In Process Every Shift 21:59 Potassium Chl PHA 02/25/24 In Process 20meq/100ml 22:30 Enoxaparin Sodium PHA 02/26/24 In Process (Lovenox) 10:00 Pantoprazole PHA 02/25/24 Logged (Protonix) 22:30 Sucralfate Susp PHA 02/25/24 Logged (Carafate Susp) 22:30 Electrocardigram EKG 02/25/24 Logged 22:31 Date of Service: Feb 25, 2024 Billing Provider: BRENNAN ELDER MD Common Visit Codes: [id number] INP/OBS CARE (HIGH) Secondary Visit Codes: [id number] CARE PLAN 30 MINUTES ROMI AGUILLON Feb 25, 2024 22:35 BRENNAN ELDER MD Feb 26, 2024 08:30
[2024-02-25] MEDS: SODIUM CHLORIDE 0.9% 1,000 ML IV SCH (22:45)
[2024-02-26] MEDS: POTASSIUM EFFERVESENT TAB 25 MEQ PO ONE (01:00)
[2024-02-26] MEDS: HYDROcodone-ACET 5/325MG TAB PO ONE (01:04)
[2024-02-26] MEDS: SODIUM CHLORIDE 0.9% 500 ML IV ONE ×2 (01:24→06:26)
[2024-02-26] MEDS: PANTOPRAZOLE 40 MG/10 ML VIAL INJ IV ONE (01:26)
[2024-02-26] MEDS: POTASSIUM CHL 20MEQ/100ML 100 ML IV SCH (02:30)
[2024-02-26] MEDS: SUCRALFATE 1 GM/10 ML ORAL SUSP GT ONE (02:50)
[2024-02-26 06:56] LABS: Basophils # (auto) 0 10 ^3/uL (0-0.2); Basophils % (auto) 0.5 % (0.0-2.0); Eosinophils # (auto) 0 10 ^3/uL (0-0.8); Eosinophils % (auto) 0.2 % (0.0-7.0); Hematocrit 33.3 % (36.0-46.0); Hemoglobin 11.4 g/dL (12.2-16.2); Lymphocytes % (auto) 11.1 % (10.0-50.0); Mean Corpuscular Hemoglobin 32.8 pg (28.0-32.0); Mean Corpuscular Hgb Conc. 34.3 g/dL (32.0-36.0); Mean Corpuscular Volume 95.5 fL (80.0-100.0); Monocytes # (auto) 0.3 10 ^3/uL (0-1.3); Monocytes % (auto) 3.8 % (0.0-12.0); Neutrophils # (auto) 7.4 10 ^3/uL (1.6-8.6); Neutrophils % (auto) 84.4 % (37.0-80.0); Nucleated Red Blood Cells % 0.1 %; Platelet Count (auto) 238 10^3/uL (140-450); Red Blood Cells 3.48 10^6/uL (4.0-5.20); Red Cell Distribution Width 14.9 % (11.8-14.3); White Blood Cell 8.8 10^3/uL (4.4-10.8)
[2024-02-26 07:20] VITALS: O2SAT 99
[2024-02-26 08:16] LABS: Protein, Urine 45.9 mg/dL (1-14)
[2024-02-26 08:19] LABS: Creatinine, Urine 130.29 mg/dL (30.0-125.0); Urine Protein/Creatinine Ratio 0.35
[2024-02-26] MEDS: HYDROcodone-ACET 5/325MG TAB PO PRN (08:26)
[2024-02-26 08:27] LABS: Alanine Aminotransferase 50 U/L (7-40); Albumin 3.7 g/dL (3.2-4.8); Alkaline Phosphatase 91 U/L (46-116); Anion Gap 14 (5-15); Aspartate Aminotransferase 68 U/L (13-40); BUN/Creatinine Ratio 10.6 (10.0-20.0); Blood Urea Nitrogen 49 mg/dL (9-23); Calcium 8.8 mg/dL (8.7-10.4); Carbon Dioxide 19 mmol/L (20-31); Chloride 110 mmol/L (98-107); Glucose 92 mg/dL (74-106); Sodium 143 mmol/L (136-145)
[2024-02-26 08:28] LABS: Bilirubin, Total 0.5 mg/dL (0.2-1.0)
[2024-02-26] MEDS: POTASSIUM CHL 20 Meq TABLET PO ONE (09:27)
[2024-02-26] MEDS: MAGNESIUM OXIDE 400 MG TAB PO ONE (09:27)
[2024-02-26 09:57] LABS: Magnesium 1.5 mg/dL (1.6-2.6)
[2024-02-26 09:59] LABS: Phosphorus 3.4 mg/dL (2.4-5.1)
[2024-02-26] MEDS: LEVOTHYROXINE SODIUM 88 MCG TAB PO SCH (10:00)
[2024-02-26] MEDS ORDERED: ENOXAPARIN SOD 30 MG/0.3 ML SYRINGE SC SCH (10:00)
[2024-02-26] MEDS: AMIODARONE HCL 200 MG TAB PO SCH (10:00)
[2024-02-26] MEDS: APIXABAN 5 MG TAB PO SCH (10:00)
--- NOTE | 2024-02-26 11:00 | DVH ---
INDICATION: Abdominal pain TECHNIQUE: Multiple real-time sonographic images of the abdomen were obtained. COMPARISON: US ABDOMEN COMPLETE SONOGRAM on DOS: 12/27/23 FINDINGS: Liver is increased in echogenicity. The liver measures 13.4 cm. No intrahepatic biliary ductal dilatation is noted. Post cholecystectomy. The common duct measures 0.7 cm and is unremarkable. The right kidney measures 9.8 cm. No hydronephrosis. The left kidney measures 8.8 cm. No hydronephros is. Possible nonobstructing 0.5 cm stone in the left midpole. The spleen measures 10.5 cm, within normal limits. The echogenicity is within normal limits. The pancreas is not well visualized due to obscuration from bowel gas. The visualized portions of the IVC and aorta are grossly unremarkable. IMPRESSION: Possible 0.5 cm nonobstructing stone in the left midpole kidney. Hepatic steatosis.
--- NOTE | 2024-02-26 12:24 | DVHPN2 ---
Subjective Seen and examined at bedside, monitor renal function closely. Baseline in Dec around Creatinine 1. Changes from previous H/P or p: No Changes Objective Vitals Vital Signs Date Time Temp Pulse Resp B/P (MAP) Pulse Ox O2 Delivery O2 Flow Rate FiO2 02/26/24 12:04 76 12 137/44 (75) 97 02/26/24 07:20 Room Air* 0 21 02/26/24 00:53 97.9 97.9 Exam General examination- awake, alert, conversant HEENT- PEERLA, no acute nasal discharge Cardiovascular- S1-S2 audible, rate and rhythm regular, no murmur Respiratory- CTAB, no wheeze or rhonchi Gastrointestinal-upper abdominal tenderness++, bowel sound+. Nondistended Musculoskeletal-no acute joint swelling or tenderness or redness# Lower extremity- no leg edema Neurological- cranial nerves intact, no acute dysarthria or dysphagia Psychiatry- denies depression or SI or HI Skin- no acute rash or purpura Medications Current Medications Medications Dose Ordered Sig/Miranda Route Start Time Stop Time Status Last Admin Dose Admin Sodium Chloride 10 ml Q8HR IV 02/25/24 22:00 02/26/24 06:22 10 ML Ondansetron HCl 4 mg Q4HP PRN IV 02/25/24 22:00 Acetaminophen 650 mg Q6HP PRN PO 02/25/24 22:00 Morphine Sulfate 2 mg Q4HPRN PRN IV 02/25/24 22:00 Hold Nitroglycerin 0.4 mg Q5MINP PRN SL 02/25/24 22:00 Morphine Sulfate 2 mg Q30M PRN IV 02/25/24 22:00 Hold Sodium Chloride 1,000 ml @ 125 mls/hr Q8H IV 02/25/24 22:45 02/26/24 06:26 125 MLS/HR Amiodarone HCl 200 mg BID PO 02/26/24 10:00 Metoprolol Succinate 50 mg DAILY PO 02/26/24 10:00 Levothyroxine Sodium 88 mcg DAILY PO 02/26/24 10:00 Sertraline HCl 100 mg DAILY PO 02/26/24 10:00 Apixaban 5 mg BID PO 02/26/24 10:00 Acetaminophen/ Hydrocodone Bitart 1 tab Q4HPRN PRN PO 02/26/24 08:15 02/26/24 08:26 1 TAB Laboratory Results Laboratory Tests 02/26/24 06:23 02/26/24 08:01 Chemistry Test 02/25/24 14:56 02/26/24 08:01 Albumin 4.5 g/dL (3.2-4.8) 3.7 g/dL (3.2-4.8) Calcium Level 9.6 mg/dL (8.7-10.4) 8.8 mg/dL (8.7-10.4) Total Protein 6.6 g/dL (5.7-8.2) 6.0 g/dL (5.7-8.2) Magnesium Level 1.5 mg/dL (1.6-2.6) L Phosphorus Level 3.4 mg/dL (2.4-5.1) Lipid panel Test 02/25/24 14:56 Lipase 33 U/L (12-53) Cardiac Markers Test 02/26/24 08:01 B-Type Natriuretic Peptide 38.05 pg/mL (0-100) LFT Test 02/25/24 14:56 02/26/24 08:01 Alanine Aminotransferase (ALT) 56 U/L (7-40) H 50 U/L (7-40) H Alkaline Phosphatase 107 U/L (46-116) 91 U/L (46-116) Aspartate Amino Transferase (AST) 64 U/L (13-40) H 68 U/L (13-40) H Total Bilirubin 0.7 mg/dL (0.2-1.0) 0.5 mg/dL (0.2-1.0) HgA1c, TSH Test 02/26/24 08:01 Thyroid Stimulating Hormone (TSH) 3.13 uIU/mL (0.55-4.78) Urinalysis Test 02/26/24 07:45 Urine Color Pending Urine Clarity Pending Urine pH Pending Urine Specific Woodson Pending Urine Protein Pending Urine Ketones Pending Urine Blood Pending Urine Nitrite Pending Urine Bilirubin Pending Urine Urobilinogen Pending Urine Leukocyte Esterase Pending Urine RBC Pending Urine WBC Pending Urine Squamous Epithelial Cells Pending Urine Bacteria Pending Urine Osmolality 334 mOsm/kg Urine Creatinine 129.61 mg/dL (30.0-125.0) H Urine Protein/Creatinine Ratio 0.35 Urine Sodium 72 mmol/L (40-220) Urine Glucose Pending Urine Total Protein 45.9 mg/dL (1-14) H Assessment/Plan Assessment/Plan #Acute abdominal pain likely due to gastritis/pancreatitis -upper abdominal pain, tenderness on palpation -serum lipase 33 - CT abdomen- No acute abdominal or pelvic findings. Multiple nonobstructive right renal calculi. Likely focal fatty infiltration in the liver along the falciform ligament. Calcified fibroid in the uterus. -continue IV normal saline as prescribed -continue pain medication as prescribed -continue pantoprazole 40 mg IV daily -continue sucralfate 1 g p.o. Q 8 H -continue IV fluid as prescribed # suspected acute gastritis --upper abdominal pain, tenderness on palpation -serum lipase 33 - CT abdomen- No acute abdominal or pelvic findings. Likely focal fatty infiltration in the liver along the falciform ligament. -continue IV normal saline as prescribed -continue pain medication as prescribed -continue pantoprazole 40 mg IV daily -continue sucralfate 1 g p.o. Q 8 H # CAROLYN with anuria likely due to dehydration, VMN -continue IV normal saline 125 mL per hour -avoid dehydration and nephrotoxic drugs --c/w IV fluid as prescribed -strict intake output chart -monitor vitals -Delgado's catheter in place, drained only 25 mL of urine # hypokalemia likely due to vomiting -replinished potassium as prescribed -continue IV normal saline as prescribed -repeat CMP #NSTEMI type 2 likely demand related ischemia -troponin I 50> 49> 48 -EKG- sinus rhythm, old inferior DE -echo on 12/26/2023 revealed LVEF 65%, mild LVH and mild LV diastolic dysfunction # history of right-sided renal calculus, status post ESWLx2 -patient had ESWL x2 by Dr. Barron in September and October 23, 2023 -CT scan of the abdomen- Multiple nonobstructive right renal calculi. -follow up outpatient # atrial fibrillation Continue p.o. b.i.d. # history of CVA with left-sided hemiparesis -continue current medical condition # hypertension -continue hydralazine 10 mg q.6h p.r.n. # hypothyroidism -on 11/30/2023-TSH 8.47 -continue levothyroxine 88 mcg p.o. q.a.m. # transaminitis -monitor CMP Plan discussed with: Patient My Orders Orders - BRENNAN DARBY MD Procedure Category Date Status Time Urinalysis LAB 02/26/24 Logged 08:49 Date of Service: Feb 26, 2024 Billing Provider: BRENNAN DARBY MD Common Visit Codes: [id number] INP/OBS CARE(HIGH) BRENNAN DARBY MD Feb 26, 2024 12:24
--- NOTE | 2024-02-26 13:05 | DVHINCON2 ---
Date of service: Feb 26, [address] Elder Reason for Consultation Acute kidney injury History of Present Illness Mrs. Posada is a 73-year-old female with known history of mild CKD with baseline creatinine less than one who presented for further evaluation management this [place] day history of epigastric discomfort. She was seen in the emergency department, patient's is at the bedside. There is no history of recent NSAIDs, IV contrast studies, gross hematuria or fever at home. Past Medical History Obesity History of breast cancer Hypertension Allergies: Coded Allergies: Cephalexin (Verified Allergy, Unknown, 05/24/23) Morphine (Verified Allergy, Unknown, 02/25/24) Home Meds Active Scripts Sucralfate (CARAFATE SUSP) 1 Gm/10 Ml Ss, 1 GM PO QID@0600,1130,1700,2200 for 30 Days, #90 ML Prov:BRENNAN ELDER MD 12/31/23 Pantoprazole Sodium Sesquihydr (Pantoprazole Sodium) 40 Mg Tab, 40 MG PO BID for 30 Days, #60 TAB Prov:BRENNAN ELDER MD 12/31/23 Nystatin (Mouth-Throat) (Mycostatin (Mouth-Throat)) 500,000 Units/5 Ml Ss, 5 ML MT QID for 14 Days, #90 ML Prov:BRENNAN ELDER MD 12/31/23 Ciprofloxacin Hcl (Cipro) 500 Mg Tab, 1 TAB PO BID for 5 Days, #10 TAB Prov:BRENNAN ELDER MD 12/31/23 Hydrocodone-Acetaminophen (Hydrocodone Bitartrate/AC 5-325 mg) 1 Tab Tab, 1 TAB PO DAILY for 5 Days, #5 TAB Prov:RAMSEY CAR MD 12/21/23 Levothyroxine Sodium (Levothyroxine Sodium) 75 Mcg Tab, 88 MCG PO DAILY for 30 Days, #36 TAB 2 Refills Prov:NIC GUY MD 09/18/23 Reported Medications Amlodipine Besylate (Amlodipine Besylate) 10 Mg Tab, 1 TAB PO DAILY 12/24/23 Amiodarone HCl (Amiodarone HCl) 200 Mg Tab, 1 TAB PO BID 12/24/23 Losartan Potassium (Losartan Potassium) 50 Mg Tab, 1 TAB PO DAILY 12/24/23 Atorvastatin Calcium (ATORVASTATIN CALCIUM) 40 Mg Tab, 1 TAB PO DAILY 12/24/23 Metoprolol Succinate (Metoprolol Succinate Er) 50 Mg Tab, 1 TAB PO DAILY 12/24/23 Sertraline Hcl (Sertraline Hcl) 100 Mg Tab, 1 TAB PO DAILY 12/24/23 Furosemide (Furosemide) 40 Mg Tab, 1 TAB PO DAILY 12/24/23 Current Medications Current Medications Medications (Trade) Dose Ordered Sig/Miranda Route PRN Reason Start Time Stop Time Status Last Admin Sodium Chloride (Saline Lock Ns) 10 ml Q8HR IV 02/25/24 22:00 02/26/24 06:22 Ondansetron HCl (Zofran) 4 mg Q4HP PRN IV NAUSEA / VOMITING 02/25/24 22:00 Enoxaparin Sodium (Lovenox) 30 mg DAILY SC 02/26/24 10:00 02/26/24 02:03 DC Acetaminophen (Tylenol Tablet) 650 mg Q6HP PRN PO PAIN SCALE 1-3 OR TEMP>100.4 02/25/24 22:00 Morphine Sulfate 2 mg Q4HPRN PRN IV SEVERE PAIN (7-10 PAIN SCALE) 02/25/24 22:00 Hold Nitroglycerin (Ntrostat Sublingual) 0.4 mg Q5MINP PRN SL FOR CHEST PAIN 02/25/24 22:00 Morphine Sulfate 2 mg Q30M PRN IV FOR CHEST PAIN 02/25/24 22:00 Hold Potassium Chloride 100 ml @ 50 mls/hr Q2H IV 02/25/24 22:30 02/26/24 02:29 DC 02/26/24 03:56 Sodium Chloride 1,000 ml @ 125 mls/hr Q8H IV 02/25/24 22:45 02/26/24 06:26 Amiodarone HCl (Cordarone Tablet) 200 mg BID PO 02/26/24 10:00 Metoprolol Succinate (Toprol Xl) 50 mg DAILY PO 02/26/24 10:00 Levothyroxine Sodium (Synthroid Tablet) 88 mcg DAILY PO 02/26/24 10:00 Sertraline HCl (Zoloft) 100 mg DAILY PO 02/26/24 10:00 Apixaban (Eliquis) 5 mg BID PO 02/26/24 10:00 Acetaminophen/ Hydrocodone Bitart ([place] 5/325MG Tab) 1 tab Q4HPRN PRN PO SEVERE PAIN (7-10 PAIN SCALE) 02/26/24 08:15 02/26/24 08:26 Family History: Diabetes mellitus G8 MOTHER Hypertension G8 MOTHER Review of Systems Denies gross hematuria, dysuria, tea or Coca-Cola colored urine Denies excessive use of recent NSAIDs, foamy urine, recent IV contrast studies Denies recent chest pain, dyspnea, PND, orthopnea Denies unintentional weight loss, night sweats Denies focal weakness, numbness H&P Exam Vital Signs/I&O Vital Sign Date Time Temp Pulse Resp B/P (MAP) Pulse Ox O2 Delivery O2 Flow Rate FiO2 02/26/24 12:04 76 12 137/44 (75) 97 02/26/24 07:20 Room Air* 0 21 02/26/24 00:53 97.9 97.9 Physical Exam Gen: supine no acute distress heent: nc/at, mmm lungs: cta anteriorly cvs: no rub abd: soft, bowel sounds audible ext: no edema skin: no rash neuro: alert and oriented Labs/Diagnostic Data Labs/Diagnostic Data Laboratory Tests Test 02/26/24 08:01 02/26/24 07:45 02/26/24 06:23 02/25/24 18:03 Range/Units Sodium Level 143 136-145 mmol/L Potassium Level 3.0 L 3.5-5.1 mmol/L Chloride Level 110 H 98-107 mmol/L Carbon Dioxide Level 19 L 20-31 mmol/L Anion Gap 14 5-15 Blood Urea Nitrogen 49 H 9-23 mg/dL Creatinine 4.61 H 0.550-1.02 mg/dL Glomerular Filtration Rate Calc 10 >90 mL/min BUN/Creatinine Ratio 10.6 10.0-20.0 Serum Glucose 92 74-106 mg/dL Calcium Level 8.8 8.7-10.4 mg/dL Phosphorus Level 3.4 2.4-5.1 mg/dL Magnesium Level 1.5 L 1.6-2.6 mg/dL Total Bilirubin 0.5 0.2-1.0 mg/dL Aspartate Amino Transferase (AST) 68 H 13-40 U/L Alanine Aminotransferase (ALT) 50 H 7-40 U/L Alkaline Phosphatase 91 46-116 U/L B-Type Natriuretic Peptide 38.05 0-100 pg/mL Total Protein 6.0 5.7-8.2 g/dL Albumin 3.7 3.2-4.8 g/dL Thyroid Stimulating Hormone (TSH) 3.13 0.55-4.78 uIU/mL Urine Osmolality 334 mOsm/kg Urine Creatinine 129.61 H 30.0-125.0 mg/dL Urine Protein/Creatinine Ratio 0.35 Urine Sodium 72 40-220 mmol/L Urine Total Protein 45.9 H 1-14 mg/dL White Blood Count 8.8 4.4-10.8 10^3/uL Red Blood Count 3.48 L 4.0-5.20 10^6/uL Hemoglobin 11.4 L 12.2-16.2 g/dL Hematocrit 33.3 #L 36.0-46.0 % Mean Corpuscular Volume 95.5 80.0-100.0 fL Mean Corpuscular Hemoglobin 32.8 H 28.0-32.0 pg Mean Corpuscular Hemoglobin Concent 34.3 32.0-36.0 g/dL Red Cell Distribution Width 14.9 H 11.8-14.3 % Platelet Count 238 140-450 10^3/uL Mean Platelet Volume 8.0 6.9-10.8 fL Neutrophils (%) (Auto) 84.4 H 37.0-80.0 % Lymphocytes (%) (Auto) 11.1 10.0-50.0 % Monocytes (%) (Auto) 3.8 0.0-12.0 % Eosinophils (%) (Auto) 0.2 0.0-7.0 % Basophils (%) (Auto) 0.5 0.0-2.0 % Neutrophils # (Auto) 7.4 1.6-8.6 10 ^3/uL Lymphocytes # (Auto) 1.0 0.4-5.4 10 ^3/uL Monocytes # (Auto) 0.3 0-1.3 10 ^3/uL Eosinophils # (Auto) 0 0-0.8 10 ^3/uL Basophils # (Auto) 0 0-0.2 10 ^3/uL Nucleated Red Blood Cells 0.1 % Troponin I High Sensitivity 48 *H </=34 ng/L Test 02/25/24 15:44 02/25/24 14:56 Range/Units Troponin I High Sensitivity 49 *H 50 *H </=34 ng/L White Blood Count 8.8 4.4-10.8 10^3/uL Red Blood Count 3.93 L 4.0-5.20 10^6/uL Hemoglobin 13.0 12.2-16.2 g/dL Hematocrit 37.8 36.0-46.0 % Mean Corpuscular Volume 96.1 80.0-100.0 fL Mean Corpuscular Hemoglobin 33.0 H 28.0-32.0 pg Mean Corpuscular Hemoglobin Concent 34.3 32.0-36.0 g/dL Red Cell Distribution Width 15.1 H 11.8-14.3 % Platelet Count 314 140-450 10^3/uL Mean Platelet Volume 8.1 6.9-10.8 fL Neutrophils (%) (Auto) 81.1 H 37.0-80.0 % Lymphocytes (%) (Auto) 13.2 10.0-50.0 % Monocytes (%) (Auto) 4.5 0.0-12.0 % Eosinophils (%) (Auto) 0.4 0.0-7.0 % Basophils (%) (Auto) 0.8 0.0-2.0 % Neutrophils # (Auto) 7.1 1.6-8.6 10 ^3/uL Lymphocytes # (Auto) 1.2 0.4-5.4 10 ^3/uL Monocytes # (Auto) 0.4 0-1.3 10 ^3/uL Eosinophils # (Auto) 0 0-0.8 10 ^3/uL Basophils # (Auto) 0.1 0-0.2 10 ^3/uL Nucleated Red Blood Cells 0.2 % Sodium Level 143 136-145 mmol/L Potassium Level 2.6 L 3.5-5.1 mmol/L Chloride Level 104 98-107 mmol/L Carbon Dioxide Level 25 20-31 mmol/L Anion Gap 14 5-15 Blood Urea Nitrogen 50 H 9-23 mg/dL Creatinine 4.06 H 0.550-1.02 mg/dL Glomerular Filtration Rate Calc 11 >90 mL/min BUN/Creatinine Ratio 12.3 10.0-20.0 Serum Glucose 108 H 74-106 mg/dL Lactic Acid Level 1.4 0.4-2.0 mmol/L Calcium Level 9.6 8.7-10.4 mg/dL Total Bilirubin 0.7 0.2-1.0 mg/dL Aspartate Amino Transferase (AST) 64 H 13-40 U/L Alanine Aminotransferase (ALT) 56 H 7-40 U/L Alkaline Phosphatase 107 46-116 U/L Total Protein 6.6 5.7-8.2 g/dL Albumin 4.5 3.2-4.8 g/dL Lipase 33 12-53 U/L Assessment IMP: 1) Hemodynamically mediated CAROLYN/VMN in the setting of hypotension, volume deplete state in current therapy with angiotensin receptor stanley 2) CKD stage II? 3) hypertension 4) history of breast cancer 5) abdominal pain REC: - volume expansion with isotonic saline - agree with cessation of losartan during time course of CAROLYN - urine studies, serial chemistry panels - avoidance of NSAIDs, intravenous contrast studies if able - we will continue to follow closely with you - discussed plan of care with patient and patient's at bedside. Plan discussed with: Patient, Spouse ANGEL ROBLES MD Feb 26, 2024 13:05
[2024-02-26 14:10] VITALS: BP 141/39; PULSE 70; RESP 20; TEMP 98.1; O2SAT 98
[2024-02-26] MEDS: SERTRALINE HCL 50 MG TAB PO SCH (15:42)
[2024-02-26] MEDS: METOPROLOL SUCCINATE XL 50 MG TAB PO SCH (15:43)
[2024-02-26 15:54] VITALS: BP 141/39; PULSE 73; RESP 16; TEMP 98.2; O2SAT 97
[2024-02-26 17:00] VITALS: BP 144/45; PULSE 70; RESP 20; TEMP 98.1; O2SAT 98
[2024-02-26 20:00] VITALS: PULSE 70; PULSE 74; RESP 18; O2SAT 97
[2024-02-26 21:00] VITALS: BP 115/46; PULSE 74; RESP 18; TEMP 94.5; O2SAT 97
[2024-02-27] VITALS (8 sets, daily range): BP systolic 100–124; BP diastolic 41–55; PULSE 69–77; RESP 16–20; TEMP 94.9–98.2; O2SAT 95–98
--- NOTE | 2024-02-27 03:43 | ECG ---
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
--- NOTE | 2024-02-27 03:48 | ECG ---
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
[2024-02-27 07:07] LABS: Basophils # (auto) 0 10 ^3/uL (0-0.2); Basophils % (auto) 0.7 % (0.0-2.0); Eosinophils # (auto) 0.1 10 ^3/uL (0-0.8); Eosinophils % (auto) 1.3 % (0.0-7.0); Hematocrit 28.4 % (36.0-46.0); Hemoglobin 9.6 g/dL (12.2-16.2); Lymphocytes # (auto) 1.2 10 ^3/uL (0.4-5.4); Lymphocytes % (auto) 21.5 % (10.0-50.0); Mean Corpuscular Hemoglobin 33.3 pg (28.0-32.0); Mean Corpuscular Volume 98.1 fL (80.0-100.0); Monocytes # (auto) 0.3 10 ^3/uL (0-1.3); Monocytes % (auto) 5.6 % (0.0-12.0); Neutrophils % (auto) 70.9 % (37.0-80.0); Nucleated Red Blood Cells % 0.1 %; Platelet Count (auto) 193 10^3/uL (140-450); Red Cell Distribution Width 14.7 % (11.8-14.3); White Blood Cell 5.6 10^3/uL (4.4-10.8)
[2024-02-27 07:26] LABS: Alanine Aminotransferase 45 U/L (7-40); Albumin 3.3 g/dL (3.2-4.8); Alkaline Phosphatase 81 U/L (46-116); Anion Gap 13 (5-15); Aspartate Aminotransferase 65 U/L (13-40); BUN/Creatinine Ratio 12.5 (10.0-20.0); Bilirubin, Direct 0.2 mg/dL (<0.3); Bilirubin, Total 0.4 mg/dL (0.2-1.0); Blood Urea Nitrogen 42 mg/dL (9-23); Calcium 8.6 mg/dL (8.7-10.4); Carbon Dioxide 19 mmol/L (20-31); Chloride 113 mmol/L (98-107); Glucose 81 mg/dL (74-106); Phosphorus 3.3 mg/dL (2.4-5.1); Potassium 3.2 mmol/L (3.5-5.1); Sodium 145 mmol/L (136-145)
[2024-02-27 07:27] LABS: Total Protein 5.3 g/dL (5.7-8.2)
[2024-02-27] MEDS: ONDANSETRON HCL 4 MG/2 ML VIAL IV PRN (10:37)
--- NOTE | 2024-02-27 15:43 | DVHPN2 ---
Subjective Complains of abdominal pain She says it is better than yesterday No diarrhea No vomiting Changes from previous H/P or p: Changes Objective Vitals Vital Signs Date Time Temp Pulse Resp B/P (MAP) Pulse Ox O2 Delivery O2 Flow Rate FiO2 02/27/24 10:24 70 124/51 02/27/24 09:00 98.1 18 97 98.1 02/27/24 08:10 Room Air* 0 21 Intake/Output Intake and Output 02/27/24 07:00 Intake Total 3500 ml Output Total 1300 ml Balance 2200 ml Intake Oral 1000 ml IV Total 2500 ml Output Urine Total 1300 ml General Appearance: Alert, Oriented X3, Cooperative Cardiovascular: Regular rate, Normal S1, Normal S2 Abdomen: Normal bowel sounds, Soft Extremities: No edema Medications Current Medications Medications Dose Ordered Sig/Miranda Route Start Time Stop Time Status Last Admin Dose Admin Sodium Chloride 10 ml Q8HR IV 02/25/24 22:00 02/27/24 05:56 10 ML Ondansetron HCl 4 mg Q4HP PRN IV 02/25/24 22:00 02/27/24 10:37 4 MG Acetaminophen 650 mg Q6HP PRN PO 02/25/24 22:00 Morphine Sulfate 2 mg Q4HPRN PRN IV 02/25/24 22:00 Hold Nitroglycerin 0.4 mg Q5MINP PRN SL 02/25/24 22:00 Morphine Sulfate 2 mg Q30M PRN IV 02/25/24 22:00 Hold Sodium Chloride 1,000 ml @ 125 mls/hr Q8H IV 02/25/24 22:45 02/27/24 05:56 125 MLS/HR Amiodarone HCl 200 mg BID PO 02/26/24 10:00 02/27/24 10:25 200 MG Metoprolol Succinate 50 mg DAILY PO 02/26/24 10:00 02/27/24 10:24 50 MG Levothyroxine Sodium 88 mcg DAILY PO 02/26/24 10:00 02/27/24 10:24 88 MCG Sertraline HCl 100 mg DAILY PO 02/26/24 10:00 02/27/24 10:24 100 MG Apixaban 5 mg BID PO 02/26/24 10:00 02/27/24 10:24 5 MG Acetaminophen/ Hydrocodone Bitart 1 tab Q4HPRN PRN PO 02/26/24 08:15 02/27/24 11:03 1 TAB Laboratory Results Laboratory Tests 02/27/24 06:16 Chemistry Test 02/27/24 06:16 Albumin 3.3 g/dL (3.2-4.8) Calcium Level 8.6 mg/dL (8.7-10.4) L Phosphorus Level 3.3 mg/dL (2.4-5.1) Total Protein 5.3 g/dL (5.7-8.2) L LFT Test 02/27/24 06:16 Alanine Aminotransferase (ALT) 45 U/L (7-40) H Alkaline Phosphatase 81 U/L (46-116) Aspartate Amino Transferase (AST) 65 U/L (13-40) H Direct Bilirubin 0.2 mg/dL (<0.3) Total Bilirubin 0.4 mg/dL (0.2-1.0) Urinalysis Test 02/26/24 07:45 Urine Color Pending Urine Clarity Pending Urine pH Pending Urine Specific [place] Pending Urine Protein Pending Urine Ketones Pending Urine Blood Pending Urine Nitrite Pending Urine Bilirubin Pending Urine Urobilinogen Pending Urine Leukocyte Esterase Pending Urine RBC Pending Urine WBC Pending Urine Squamous Epithelial Cells Pending Urine Bacteria Pending Urine Osmolality 334 mOsm/kg Urine Creatinine 129.61 mg/dL (30.0-125.0) H Urine Protein/Creatinine Ratio 0.35 Urine Sodium 72 mmol/L (40-220) Urine Glucose Pending Urine Total Protein 45.9 mg/dL (1-14) H Assessment/Plan Assessment/Plan Abdominal pain most likely due to gastritis, GERD Acute kidney injury due to vasomotor nephropathy Hypokalemia NSTEMI type 2 0.5 cm left kidney stone History of breast cancer History of stroke Atrial fibrillation Hypertension Hypothyroidism Plan Continue IV fluids Continue amiodarone b.i.d. Nephrology consult Continue Eliquis Add Protonix and Carafate Monitor the kidney function closely Replace potassium Discussed with the at the bedside Plan discussed with: Patient, Spouse Date of Service: Feb 27, 2024 Billing Provider: BENJAMIN PADILLA MD Common Visit Codes: [id number] INP/OBS CARE(HIGH) BENJAMIN PADILLA MD Feb 27, 2024 15:42
[2024-02-27] MEDS ORDERED: PANTOPRAZOLE 40 MG TAB PO ONE (15:45)
--- NOTE | 2024-02-27 16:21 | DVHPN2 ---
Progress Note Date Seen: Feb 27, 2024 Medical Necessity Reason Pt with a Central, PICC or Fol: Yes The following are medically ne: Delgado Catheter Subjective Review of Systems Reports she feels better, abd pain has subsided. No acute distress noted. Patient reports: No new complaints, Feels better Objective vital signs Vital Sign Date Time Temp Pulse Resp B/P (MAP) Pulse Ox O2 Delivery O2 Flow Rate FiO2 02/27/24 10:24 70 124/51 02/27/24 09:00 98.1 18 97 98.1 02/27/24 08:10 Room Air* 0 21 Total Intake and Output 02/26/24 02/26/24 02/27/24 15:00 23:00 07:00 Intake Total 500 ml 1800 ml 1200 ml Output Total 900 ml 400 ml Balance 500 ml 900 ml 800 ml medications Current Medications Medications Dose Ordered Sig/Miranda Route Start Time Stop Time Status Last Admin Dose Admin Sodium Chloride 10 ml Q8HR IV 02/25/24 22:00 02/27/24 15:41 10 ML Ondansetron HCl 4 mg Q4HP PRN IV 02/25/24 22:00 02/27/24 10:37 4 MG Acetaminophen 650 mg Q6HP PRN PO 02/25/24 22:00 Morphine Sulfate 2 mg Q4HPRN PRN IV 02/25/24 22:00 Hold Nitroglycerin 0.4 mg Q5MINP PRN SL 02/25/24 22:00 Morphine Sulfate 2 mg Q30M PRN IV 02/25/24 22:00 Hold Sodium Chloride 1,000 ml @ 125 mls/hr Q8H IV 02/25/24 22:45 02/27/24 15:40 125 MLS/HR Amiodarone HCl 200 mg BID PO 02/26/24 10:00 02/27/24 10:25 200 MG Metoprolol Succinate 50 mg DAILY PO 02/26/24 10:00 02/27/24 10:24 50 MG Levothyroxine Sodium 88 mcg DAILY PO 02/26/24 10:00 02/27/24 10:24 88 MCG Sertraline HCl 100 mg DAILY PO 02/26/24 10:00 02/27/24 10:24 100 MG Apixaban 5 mg BID PO 02/26/24 10:00 02/27/24 10:24 5 MG Acetaminophen/ Hydrocodone Bitart 1 tab Q4HPRN PRN PO 02/26/24 08:15 02/27/24 11:03 1 TAB Sucralfate 1 gm QIDACHS PO 02/27/24 17:00 UNV Trazodone HCl 50 mg HS PO 02/27/24 22:00 UNV Pantoprazole Sodium 40 mg BID IV 02/27/24 22:00 UNV Examination Gen: Appears stated age. In no acute distress. Pulm: CTA bilaterally CV: RRR Ext:No edema Neuro: Alert and orientedx4 laboratory and microbiology Laboratory Tests 02/27/24 06:16 Test 02/27/24 06:16 Range/Units Serum Glucose 81 74-106 mg/dL Labs and/or images reviewed: Labs reviewed by me, Image(s) reviewed by me Problem List/Assessment/Plan Problem List/Assessment/Plan IMP: 1) Hemodynamically mediated CAROLYN/VMN in the setting of hypotension, volume deplete state in current therapy with angiotensin receptor stanley- improving. Downtrending creat 3.37. GFR 14 2) CKD stage II? 3) hypertension 4) history of breast cancer 5) abdominal pain Abd/ US IMPRESSION: Possible 0.5 cm nonobstructing stone in the left midpole kidney. Abd/pelvis CT IMPRESSION: 1. No acute abdominal or pelvic findings. Multiple nonobstructive right renal calculi. Likely focal fatty infiltration in the liver along the falciform ligament. This could be further evaluated with MRI of the abdomen with contrast. Calcified fibroid in the uterus. REC: - Serial chemistry panels - Continue volume expansion with IVF isotonic saline - Hold losartan during time course of CAROLYN - Consider urology eval- for multiple R renal calculi and possible L renal calculi - Avoidance of nephrotoxins - Will continue to follow closely Plan discussed with: Patient, Spouse, Other (Dr. Hooks) KYM MORA MANAGER CIVIL Feb 27, 2024 16:21
[2024-02-27] MEDS: POTASSIUM CHL 20 Meq TABLET PO ONE (16:44)
[2024-02-27] MEDS: SUCRALFATE 1 GM TAB PO SCH (17:00)
[2024-02-27] MEDS ORDERED: PANTOPRAZOLE 40 MG TAB PO SCH (17:00)
[2024-02-27] MEDS: PANTOPRAZOLE 40 MG/10 ML VIAL INJ IV ONE (19:07)
[2024-02-27] MEDS: PANTOPRAZOLE 40 MG/10 ML VIAL INJ IV SCH (23:04)
[2024-02-27] MEDS: traZODone HCL 50 MG TAB PO SCH (23:13)
[2024-02-28] VITALS (7 sets, daily range): BP systolic 100–127; BP diastolic 28–49; PULSE 70–78; RESP 16–20; TEMP 97.6–97.9; O2SAT 94–96
[2024-02-28 07:23] LABS: Anion Gap 9 (5-15); Calcium 8.2 mg/dL (8.7-10.4); Carbon Dioxide 20 mmol/L (20-31); Chloride 118 mmol/L (98-107); Potassium 3.6 mmol/L (3.5-5.1); Sodium 147 mmol/L (136-145)
[2024-02-28 07:28] LABS: Glucose 78 mg/dL (74-106)
[2024-02-28 07:29] LABS: BUN/Creatinine Ratio 17.5 (10.0-20.0); Blood Urea Nitrogen 38 mg/dL (9-23); Magnesium 1.4 mg/dL (1.6-2.6)
[2024-02-28 07:45] LABS: Basophils # (auto) 0.1 10 ^3/uL (0-0.2); Eosinophils # (auto) 0.1 10 ^3/uL (0-0.8); Eosinophils % (auto) 2.1 % (0.0-7.0); Hematocrit 30.8 % (36.0-46.0); Hemoglobin 10.5 g/dL (12.2-16.2); Lymphocytes # (auto) 1.6 10 ^3/uL (0.4-5.4); Lymphocytes % (auto) 28.4 % (10.0-50.0); Mean Corpuscular Hemoglobin 32.9 pg (28.0-32.0); Mean Corpuscular Hgb Conc. 33.9 g/dL (32.0-36.0); Monocytes # (auto) 0.3 10 ^3/uL (0-1.3); Monocytes % (auto) 4.6 % (0.0-12.0); Neutrophils # (auto) 3.6 10 ^3/uL (1.6-8.6); Neutrophils % (auto) 63.9 % (37.0-80.0); Nucleated Red Blood Cells % 0.1 %; Platelet Count (auto) 209 10^3/uL (140-450); Red Blood Cells 3.18 10^6/uL (4.0-5.20); Red Cell Distribution Width 14.9 % (11.8-14.3); White Blood Cell 5.7 10^3/uL (4.4-10.8)
--- NOTE | 2024-02-28 12:56 | DVHPN2 ---
Progress Note Date Seen: Feb 28, 2024 Medical Necessity Reason Pt with a Central, PICC or Fol: Yes The following are medically ne: Delgado Catheter Subjective Patient reports: No new complaints Other Systems: Patient seen and examined by myself on follow-up today Objective vital signs Vital Sign Date Time Temp Pulse Resp B/P (MAP) Pulse Ox O2 Delivery O2 Flow Rate FiO2 02/28/24 12:16 97.9 70 20 127/31 (63) 96 97.9 02/28/24 08:15 Room Air* 0 21 Total Intake and Output 02/27/24 02/27/24 02/28/24 15:00 23:00 07:00 Intake Total 1900 ml 1730 ml Output Total 300 ml 200 ml Balance 1600 ml 1530 ml medications Current Medications Medications Dose Ordered Sig/Miranda Route Start Time Stop Time Status Last Admin Dose Admin Sodium Chloride 10 ml Q8HR IV 02/25/24 22:00 02/28/24 06:12 10 ML Ondansetron HCl 4 mg Q4HP PRN IV 02/25/24 22:00 02/27/24 10:37 4 MG Acetaminophen 650 mg Q6HP PRN PO 02/25/24 22:00 Morphine Sulfate 2 mg Q4HPRN PRN IV 02/25/24 22:00 Hold Nitroglycerin 0.4 mg Q5MINP PRN SL 02/25/24 22:00 Morphine Sulfate 2 mg Q30M PRN IV 02/25/24 22:00 Hold Amiodarone HCl 200 mg BID PO 02/26/24 10:00 02/28/24 11:22 200 MG Metoprolol Succinate 50 mg DAILY PO 02/26/24 10:00 02/28/24 11:22 50 MG Levothyroxine Sodium 88 mcg DAILY PO 02/26/24 10:00 02/28/24 11:22 88 MCG Sertraline HCl 100 mg DAILY PO 02/26/24 10:00 02/28/24 11:22 100 MG Apixaban 5 mg BID PO 02/26/24 10:00 02/28/24 11:22 5 MG Acetaminophen/ Hydrocodone Bitart 1 tab Q4HPRN PRN PO 02/26/24 08:15 02/28/24 11:32 1 TAB Sucralfate 1 gm QIDACHS PO 02/27/24 17:00 02/28/24 11:22 1 GM Trazodone HCl 50 mg HS PO 02/27/24 22:00 02/27/24 23:13 50 MG Pantoprazole Sodium 40 mg BID IV 02/27/24 22:00 02/27/24 23:04 40 MG Magnesium Sulfate/ Dextrose 100 ml @ 100 mls/hr Q1HR IV 02/28/24 12:00 02/28/24 14:59 Dextrose/Sodium Chloride 1,000 ml @ 125 mls/hr Q8H IV 02/28/24 11:15 Examination: LUNGS:Normal, CVS:Normal, MSK:Normal laboratory and microbiology Laboratory Tests 02/28/24 06:19 Test 02/28/24 06:19 Range/Units Serum Glucose 78 74-106 mg/dL Problem List/Assessment/Plan Problem List/Assessment/Plan Acute kidney injury superimposed Chronic Kidney Disease secondary hemodynamic mediated Nephrolithiasis, nonobstructing Hypertension Hypokalemia Hypomagnesemia Dehydration History of breast cancer Recommendations Kidney function is improving Increased urine output Strict I&Os Magnesium sulfate IV piggyback KCL replacement I agree with IV fluid hydration CT scan reported nonobstructing kidney stones We will continue to follow Plan discussed with: Patient DANG MARTÍNEZ MD Feb 28, 2024 12:56
[2024-02-28] MEDS: D5W/SOD CHL 0.45% 1,000 ML IV SCH (13:47)
[2024-02-28] MEDS: MAGNESIUM SULFATE 1GM/100ML 100 ML IV SCH (13:47)
--- NOTE | 2024-02-28 15:25 | DVHPN2 ---
Subjective Seen and examined at bedside, cont IVF, Need GI Cx. Changes from previous H/P or p: No Changes Objective Vitals Vital Signs Date Time Temp Pulse Resp B/P (MAP) Pulse Ox O2 Delivery O2 Flow Rate FiO2 02/28/24 12:16 97.9 70 20 127/31 (63) 96 97.9 02/28/24 08:15 Room Air* 0 21 Intake/Output Intake and Output 02/28/24 07:00 Intake Total 3630 ml Output Total 500 ml Balance 3130 ml Intake Oral 880 ml IV Total 2750 ml Output Urine Total 500 ml Exam General examination- awake, alert, conversant HEENT- PEERLA, no acute nasal discharge Cardiovascular- S1-S2 audible, rate and rhythm regular, no murmur Respiratory- CTAB, no wheeze or rhonchi Gastrointestinal-upper abdominal tenderness++, bowel sound+. Nondistended Musculoskeletal-no acute joint swelling or tenderness or redness# Lower extremity- no leg edema Neurological- cranial nerves intact, no acute dysarthria or dysphagia Psychiatry- denies depression or SI or HI Skin- no acute rash or purpura Medications Current Medications Medications Dose Ordered Sig/Miranda Route Start Time Stop Time Status Last Admin Dose Admin Sodium Chloride 10 ml Q8HR IV 02/25/24 22:00 02/28/24 13:59 10 ML Ondansetron HCl 4 mg Q4HP PRN IV 02/25/24 22:00 02/27/24 10:37 4 MG Acetaminophen 650 mg Q6HP PRN PO 02/25/24 22:00 Morphine Sulfate 2 mg Q4HPRN PRN IV 02/25/24 22:00 Hold Nitroglycerin 0.4 mg Q5MINP PRN SL 02/25/24 22:00 Morphine Sulfate 2 mg Q30M PRN IV 02/25/24 22:00 Hold Amiodarone HCl 200 mg BID PO 02/26/24 10:00 02/28/24 11:22 200 MG Metoprolol Succinate 50 mg DAILY PO 02/26/24 10:00 02/28/24 11:22 50 MG Levothyroxine Sodium 88 mcg DAILY PO 02/26/24 10:00 02/28/24 11:22 88 MCG Sertraline HCl 100 mg DAILY PO 02/26/24 10:00 02/28/24 11:22 100 MG Apixaban 5 mg BID PO 02/26/24 10:00 02/28/24 11:22 5 MG Acetaminophen/ Hydrocodone Bitart 1 tab Q4HPRN PRN PO 02/26/24 08:15 02/28/24 11:32 1 TAB Sucralfate 1 gm QIDACHS PO 02/27/24 17:00 02/28/24 11:22 1 GM Trazodone HCl 50 mg HS PO 02/27/24 22:00 02/27/24 23:13 50 MG Pantoprazole Sodium 40 mg BID IV 02/27/24 22:00 02/27/24 23:04 40 MG Dextrose/Sodium Chloride 1,000 ml @ 125 mls/hr Q8H IV 02/28/24 11:15 02/28/24 13:47 125 MLS/HR Laboratory Results Laboratory Tests 02/28/24 06:19 Chemistry Test 02/28/24 06:19 Calcium Level 8.2 mg/dL (8.7-10.4) L Magnesium Level 1.4 mg/dL (1.6-2.6) L Urinalysis Test 02/26/24 07:45 Urine Color Pending Urine Clarity Pending Urine pH Pending Urine Specific [place] Pending Urine Protein Pending Urine Ketones Pending Urine Blood Pending Urine Nitrite Pending Urine Bilirubin Pending Urine Urobilinogen Pending Urine Leukocyte Esterase Pending Urine RBC Pending Urine WBC Pending Urine Squamous Epithelial Cells Pending Urine Bacteria Pending Urine Osmolality 334 mOsm/kg Urine Creatinine 129.61 mg/dL (30.0-125.0) H Urine Protein/Creatinine Ratio 0.35 Urine Sodium 72 mmol/L (40-220) Urine Glucose Pending Urine Total Protein 45.9 mg/dL (1-14) H Assessment/Plan Assessment/Plan #Acute abdominal pain likely due to gastritis -upper abdominal pain, tenderness on palpation -serum lipase 33 - CT abdomen- No acute abdominal or pelvic findings. Multiple nonobstructive right renal calculi. Likely focal fatty infiltration in the liver along the falciform ligament. Calcified fibroid in the uterus. -continue IV normal saline as prescribed -continue pain medication as prescribed -continue pantoprazole 40 mg IV daily -continue IV fluid as prescribed # suspected acute gastritis --upper abdominal pain, tenderness on palpation -serum lipase 33 - CT abdomen- No acute abdominal or pelvic findings. Likely focal fatty infiltration in the liver along the falciform ligament. -continue IV normal saline as prescribed -continue pain medication as prescribed -continue pantoprazole 40 mg IV daily # CAROLYN with anuria likely due to dehydration, VMN -avoid dehydration and nephrotoxic drugs --c/w IV fluid as prescribed -strict intake output chart -monitor vitals # hypokalemia likely due to vomiting -replenished potassium as prescribed -continue IV normal saline as prescribed -repeat CMP #NSTEMI type 2 likely demand related ischemia -troponin I 50> 49> 48 -EKG- sinus rhythm, old inferior HI -echo on 12/26/2023 revealed LVEF 65%, mild LVH and mild LV diastolic dysfunction # history of right-sided renal calculus, status post ESWLx2 -patient had ESWL x2 by Dr. Barron in September and October 23, 2023 -CT scan of the abdomen- Multiple nonobstructive right renal calculi. -follow up outpatient # atrial fibrillation Continue p.o. b.i.d. # history of CVA with left-sided hemiparesis -continue current medical condition # hypertension -continue hydralazine 10 mg q.6h p.r.n. # hypothyroidism -on 11/30/2023-TSH 8.47 -continue levothyroxine 88 mcg p.o. q.a.m. # transaminitis -monitor CMP Plan discussed with: Patient My Orders Orders - BRENNAN DARBY MD Procedure Category Date Status Time D5w/Sod Chl 0.45% PHA 02/28/24 In Process (D5w 1/2ns) 11:15 Basic Metabolic Panel LAB 02/29/24 Verified 04:00 Complete Blood Count LAB 02/29/24 Verified 04:00 * [facility] [employer] CONS 02/28/24 Transmitted 12:15 Date of Service: Feb 28, 2024 Billing Provider: BRENNAN DARBY MD Common Visit Codes: [id number] INP/OBS CARE(HIGH) BRENNAN DARBY MD Feb 28, 2024 15:25
[2024-02-28] MEDS: MAGNESIUM SULFATE 1GM/100ML 100 ML IV ONE (17:35)
--- NOTE | 2024-02-28 17:46 | DVHINCON2 ---
GI Consult Consult Note Date of Consultation: 02/28/2024 Chief Complaint: Abdominal pain Referring Physician: Jerrod H&P: The patient is a 73-year-old female with a past medical history significant for hypertension atrial fibrillation, history of carcinoma of the breast history of kidney stone who was admitted with abdominal pain. Patient has epigastric abdominal pain that does not radiate. It starts half an hour after eating. She is not in eating significantly. She denies any chest pain or shortness of breath. Patient has a history of abdominal pain and esophageal candidiasis. Patient was scoped several months ago by Dr. [place]. She denies any melena or hematochezia. Patient was noted to have fatty liver disease on imaging tests. She denies any dysphagia or odynophagia. She is unsure if she took any medication for Viridiana. Past Medical History: As above Social History: Denies alcohol tobacco or recreational drug use Family History: Denies GI diseases or malignancies Current Medications Medications (Trade) Dose Ordered Sig/Miranda Route PRN Reason Start Time Stop Time Status Last Admin Dextrose/Sodium Chloride 1,000 ml @ 125 mls/hr Q8H IV 02/28/24 11:15 02/28/24 13:47 Pantoprazole Sodium (Protonix) 40 mg BID IV 02/27/24 22:00 02/27/24 23:04 Trazodone HCl (Desyrel) 50 mg HS PO 02/27/24 22:00 02/27/24 23:13 Review of Systems: Constitutional: no fever, chill, weight loss HEENT: no eye pain, no hearing loss, no oral lesion, no scleral icterus Heart: Atrial fibrillation, history of NSTEMI Lung: no cough, no dyspnea with exertion Abdomen: see HPI : History of CAROLYN Musculoskeletal: no joint pain, no muscle pain Neurological: no seizure, no loss of sensation, no weakness in extremities Pysch: no depression, no anxiety Derm: no rash, no jaundice Vital Signs Date Time Temp Pulse Resp B/P (MAP) Pulse Ox O2 Delivery O2 Flow Rate FiO2 02/28/24 17:00 97.6 78 18 100/28 (52) 94 97.6 02/28/24 08:15 Room Air* 0 21 Physical exam: General: NAD, AAOX3 HEENT: PERRL, no scleral icterus, normal hearing, gums without lesions or bleeding, oropharynx clear without erythema or exudate. Neck: Supple without enlargement of the thyroid, or lymphadenopathy. Chest: Normal size and shape, no tenderness, lung bond clear to auscultation and percussion, nonlabored breathing. Heart: RRR, no murmur Abdomen: Soft mild epigastric tenderness to palpation no rebound or guarding Extremities: no edema, no cyanosis Neurological: CN II-XII intact, sensation intact in all extremities, 5+ strength in all extremities, no asterixis Skin: No rashes, No jaundice Labs: Current Medications Medications (Trade) Dose Ordered Sig/Miranda Route PRN Reason Start Time Stop Time Status Last Admin Dextrose/Sodium Chloride 1,000 ml @ 125 mls/hr Q8H IV 02/28/24 11:15 02/28/24 13:47 Pantoprazole Sodium (Protonix) 40 mg BID IV 02/27/24 22:00 02/27/24 23:04 Trazodone HCl (Desyrel) 50 mg HS PO 02/27/24 22:00 02/27/24 23:13 Imaging: Labs Test 02/28/24 06:19 02/27/24 06:16 02/26/24 08:01 02/26/24 07:45 Range/Units White Blood Count 5.7 4.4-10.8 10^3/uL Red Blood Count 3.18 L 4.0-5.20 10^6/uL Hemoglobin 10.5 L 12.2-16.2 g/dL Hematocrit 30.8 L 36.0-46.0 % Mean Corpuscular Volume 97.0 80.0-100.0 fL Mean Corpuscular Hemoglobin 32.9 H 28.0-32.0 pg Mean Corpuscular Hemoglobin Concent 33.9 32.0-36.0 g/dL Red Cell Distribution Width 14.9 H 11.8-14.3 % Platelet Count 209 140-450 10^3/uL Mean Platelet Volume 8.1 6.9-10.8 fL Neutrophils (%) (Auto) 63.9 37.0-80.0 % Lymphocytes (%) (Auto) 28.4 10.0-50.0 % Monocytes (%) (Auto) 4.6 0.0-12.0 % Eosinophils (%) (Auto) 2.1 0.0-7.0 % Basophils (%) (Auto) 1.0 0.0-2.0 % Neutrophils # (Auto) 3.6 1.6-8.6 10 ^3/uL Lymphocytes # (Auto) 1.6 0.4-5.4 10 ^3/uL Monocytes # (Auto) 0.3 0-1.3 10 ^3/uL Eosinophils # (Auto) 0.1 0-0.8 10 ^3/uL Basophils # (Auto) 0.1 0-0.2 10 ^3/uL Nucleated Red Blood Cells 0.1 % Sodium Level 147 H 136-145 mmol/L Potassium Level 3.6 3.5-5.1 mmol/L Chloride Level 118 H 98-107 mmol/L Carbon Dioxide Level 20 20-31 mmol/L Anion Gap 9 5-15 Blood Urea Nitrogen 38 H 9-23 mg/dL Creatinine 2.17 #H 0.550-1.02 mg/dL Glomerular Filtration Rate Calc 23 >90 mL/min BUN/Creatinine Ratio 17.5 10.0-20.0 Serum Glucose 78 74-106 mg/dL Calcium Level 8.2 L 8.7-10.4 mg/dL Magnesium Level 1.4 L 1.6-2.6 mg/dL Phosphorus Level 3.3 2.4-5.1 mg/dL Total Bilirubin 0.4 0.2-1.0 mg/dL Direct Bilirubin 0.2 <0.3 mg/dL Aspartate Amino Transferase (AST) 65 H 13-40 U/L Alanine Aminotransferase (ALT) 45 H 7-40 U/L Alkaline Phosphatase 81 46-116 U/L Total Protein 5.3 L 5.7-8.2 g/dL Albumin 3.3 3.2-4.8 g/dL B-Type Natriuretic Peptide 38.05 0-100 pg/mL Thyroid Stimulating Hormone (TSH) 3.13 0.55-4.78 uIU/mL Urine Osmolality 334 mOsm/kg Urine Creatinine 129.61 H 30.0-125.0 mg/dL Urine Protein/Creatinine Ratio 0.35 Urine Sodium 72 40-220 mmol/L Urine Total Protein 45.9 H 1-14 mg/dL Test 02/25/24 18:03 02/25/24 14:56 Range/Units Troponin I High Sensitivity 48 *H </=34 ng/L Lactic Acid Level 1.4 0.4-2.0 mmol/L Lipase 33 12-53 U/L Assessment: #Abdominal pain # history of Viridiana #Anemia # fatty liver disease Recommendations: 1 follow labs 2. Pain control 3. Diet as tolerated 4. Will schedule for inpatient EGD on Wednesday 5. Anti-reflux precautions 6. Hold off on Viridiana treatment until endoscopy Date of Service: Feb 28, 2024 Billing Provider: CHERI ZAPATA MD Common Visit Codes: [id number] INP/OBS CARE (HIGH) Consultation Codes: [id number] CONSULT <45MIN, [id number] CONSULT <60MIN CHERI ZAPATA MD Feb 28, 2024 17:46
[2024-02-29] VITALS (8 sets, daily range): BP systolic 98–138; BP diastolic 37–54; PULSE 69–78; RESP 14–19; TEMP 97.6–98.5; O2SAT 92–97
[2024-02-29 07:08] LABS: Anion Gap 9 (5-15); Calcium 8.6 mg/dL (8.7-10.4); Carbon Dioxide 19 mmol/L (20-31); Chloride 115 mmol/L (98-107); Potassium 3.2 mmol/L (3.5-5.1); Sodium 143 mmol/L (136-145)
[2024-02-29 07:14] LABS: BUN/Creatinine Ratio 15.5 (10.0-20.0); Blood Urea Nitrogen 24 mg/dL (9-23); Glucose 94 mg/dL (74-106)
[2024-02-29 07:18] LABS: Basophils # (auto) 0 10 ^3/uL (0-0.2); Eosinophils # (auto) 0.1 10 ^3/uL (0-0.8); Eosinophils % (auto) 3.2 % (0.0-7.0); Hematocrit 27.8 % (36.0-46.0); Hemoglobin 9.4 g/dL (12.2-16.2); Lymphocytes # (auto) 1.2 10 ^3/uL (0.4-5.4); Lymphocytes % (auto) 24.6 % (10.0-50.0); Mean Corpuscular Hemoglobin 33.4 pg (28.0-32.0); Mean Corpuscular Hgb Conc. 33.8 g/dL (32.0-36.0); Mean Corpuscular Volume 98.6 fL (80.0-100.0); Monocytes # (auto) 0.3 10 ^3/uL (0-1.3); Monocytes % (auto) 5.5 % (0.0-12.0); Neutrophils # (auto) 3.1 10 ^3/uL (1.6-8.6); Neutrophils % (auto) 65.7 % (37.0-80.0); Platelet Count (auto) 178 10^3/uL (140-450); Red Blood Cells 2.82 10^6/uL (4.0-5.20); Red Cell Distribution Width 15.4 % (11.8-14.3); White Blood Cell 4.7 10^3/uL (4.4-10.8)
[2024-02-29] MEDS: POTASSIUM EFFERVESENT TAB 25 MEQ PO ONE ×2 (10:45→12:38)
[2024-02-29] MEDS: POTASSIUM CHLORIDE 40 MEQ, LIDOCAINE 1% (LOCAL ANESTH.) 4 ML in SODIUM CHL 0.9% 250 ML IV ONE (10:58)
[2024-02-29] MEDS: MAGNESIUM SULFATE 1GM/100ML 100 ML IV SCH ×2 (11:00→17:51)
--- NOTE | 2024-02-29 13:01 | DVHPN2 ---
Progress Note Date Seen: Feb 29, 2024 Medical Necessity Reason Pt with a Central, PICC or Fol: Yes The following are medically ne: Delgado Catheter Subjective Patient reports: No new complaints Other Systems: Patient seen and examined by myself today in follow-up Objective vital signs Vital Sign Date Time Temp Pulse Resp B/P (MAP) Pulse Ox O2 Delivery O2 Flow Rate FiO2 02/29/24 09:43 69 109/54 02/29/24 09:00 98.3 14 97 98.3 02/29/24 08:10 Room Air* 0 21 Total Intake and Output 02/28/24 02/28/24 02/29/24 15:00 23:00 07:00 Intake Total 680 ml 2050 ml Output Total 750 ml 1100 ml Balance -70 ml 950 ml medications Current Medications Medications Dose Ordered Sig/Miranda Route Start Time Stop Time Status Last Admin Dose Admin Sodium Chloride 10 ml Q8HR IV 02/25/24 22:00 02/29/24 06:17 10 ML Ondansetron HCl 4 mg Q4HP PRN IV 02/25/24 22:00 02/27/24 10:37 4 MG Acetaminophen 650 mg Q6HP PRN PO 02/25/24 22:00 Morphine Sulfate 2 mg Q4HPRN PRN IV 02/25/24 22:00 Hold Nitroglycerin 0.4 mg Q5MINP PRN SL 02/25/24 22:00 Morphine Sulfate 2 mg Q30M PRN IV 02/25/24 22:00 Hold Amiodarone HCl 200 mg BID PO 02/26/24 10:00 02/29/24 09:43 200 MG Metoprolol Succinate 50 mg DAILY PO 02/26/24 10:00 02/29/24 09:43 50 MG Levothyroxine Sodium 88 mcg DAILY PO 02/26/24 10:00 02/29/24 09:43 88 MCG Sertraline HCl 100 mg DAILY PO 02/26/24 10:00 02/29/24 09:43 100 MG Apixaban 5 mg BID PO 02/26/24 10:00 02/29/24 09:43 5 MG Acetaminophen/ Hydrocodone Bitart 1 tab Q4HPRN PRN PO 02/26/24 08:15 02/29/24 09:40 1 TAB Sucralfate 1 gm QIDACHS PO 02/27/24 17:00 02/29/24 12:38 1 GM Trazodone HCl 50 mg HS PO 02/27/24 22:00 02/28/24 22:31 50 MG Pantoprazole Sodium 40 mg BID IV 02/27/24 22:00 02/29/24 10:57 40 MG Dextrose/Sodium Chloride 1,000 ml @ 125 mls/hr Q8H IV 02/28/24 11:15 02/28/24 13:47 125 MLS/HR Examination: LUNGS:Normal, CVS:Normal, MSK:Normal laboratory and microbiology Laboratory Tests 02/29/24 05:28 Test 02/29/24 05:28 Range/Units Serum Glucose 94 74-106 mg/dL Problem List/Assessment/Plan Problem List/Assessment/Plan Acute kidney injury superimposed Chronic Kidney Disease secondary hemodynamic mediated Nephrolithiasis, nonobstructing Hypertension Hypokalemia Hypomagnesemia Dehydration History of breast cancer Recommendations Kidney function continues to improve Increased urine output Strict I&Os Magnesium sulfate IV piggyback KCL replacement I agree with IV fluid hydration CT scan reported nonobstructing kidney stones We will continue to follow Plan discussed with: Patient DANG MARTÍNEZ MD Feb 29, 2024 13:01
--- NOTE | 2024-02-29 14:07 | DVHPN2 ---
Subjective No changes Changes from previous H/P or p: No Changes Objective Vitals Vital Signs Date Time Temp Pulse Resp B/P (MAP) Pulse Ox O2 Delivery O2 Flow Rate FiO2 02/29/24 13:00 98.5 78 16 126/43 (70) 94 98.5 02/29/24 08:10 Room Air* 0 21 Intake/Output Intake and Output 02/29/24 07:00 Intake Total 2730 ml Output Total 1850 ml Balance 880 ml Intake Oral 1380 ml IV Total 1350 ml Output Urine Total 1850 ml General Appearance: Alert, Oriented X3, Cooperative, No acute distress, mild distress, moderate distress, severe distress, Other Neck: Carotid Bruits [place], Enlarged Thyroid, JVD, Lymphadenopathy, Rigidity, S upple, Swelling, Symmetry, Tenderness, Tracheal Deviation, Full Range of Motion, Other Lungs: Clear to auscultation, Normal air movement, Other Cardiovascular: Regular rate, Normal S1, Normal S2, No murmurs, Gallops, Rubs, Other Abdomen: Normal bowel sounds, Soft, No tenderness (Positive epigastric tenderness), No hepatospenomegaly, No masses, Other Medications Current Medications Medications Dose Ordered Sig/Miranda Route Start Time Stop Time Status Last Admin Dose Admin Sodium Chloride 10 ml Q8HR IV 02/25/24 22:00 02/29/24 14:03 10 ML Ondansetron HCl 4 mg Q4HP PRN IV 02/25/24 22:00 02/27/24 10:37 4 MG Acetaminophen 650 mg Q6HP PRN PO 02/25/24 22:00 Morphine Sulfate 2 mg Q4HPRN PRN IV 02/25/24 22:00 Hold Nitroglycerin 0.4 mg Q5MINP PRN SL 02/25/24 22:00 Morphine Sulfate 2 mg Q30M PRN IV 02/25/24 22:00 Hold Amiodarone HCl 200 mg BID PO 02/26/24 10:00 02/29/24 09:43 200 MG Metoprolol Succinate 50 mg DAILY PO 02/26/24 10:00 02/29/24 09:43 50 MG Levothyroxine Sodium 88 mcg DAILY PO 02/26/24 10:00 02/29/24 09:43 88 MCG Sertraline HCl 100 mg DAILY PO 02/26/24 10:00 02/29/24 09:43 100 MG Acetaminophen/ Hydrocodone Bitart 1 tab Q4HPRN PRN PO 02/26/24 08:15 02/29/24 14:01 1 TAB Sucralfate 1 gm QIDACHS PO 02/27/24 17:00 02/29/24 12:38 1 GM Trazodone HCl 50 mg HS PO 02/27/24 22:00 02/28/24 22:31 50 MG Pantoprazole Sodium 40 mg BID IV 02/27/24 22:00 02/29/24 10:57 40 MG Dextrose/Sodium Chloride 1,000 ml @ 125 mls/hr Q8H IV 02/28/24 11:15 02/28/24 13:47 125 MLS/HR Apixaban 5 mg BID PO 03/02/24 22:00 Laboratory Results Laboratory Tests 02/29/24 05:28 Chemistry Test 02/29/24 05:28 Calcium Level 8.6 mg/dL (8.7-10.4) L Urinalysis Test 02/26/24 07:45 Urine Osmolality 334 mOsm/kg Urine Creatinine 129.61 mg/dL (30.0-125.0) H Urine Protein/Creatinine Ratio 0.35 Urine Sodium 72 mmol/L (40-220) Urine Total Protein 45.9 mg/dL (1-14) H Labs and/or images reviewed: Labs reviewed by me, Image(s) reviewed by me Assessment/Plan Assessment/Plan #Abdominal pain # history of Viridiana #Anemia # fatty liver disease Plan: Discussed with Dr. Workman Plan for EGD in 48 hours, due to last dosage of Eliquis this morning Discussed risks benefits alternatives of the procedure and sedation, patient understands and agrees Continue current medications Monitor lab Plan discussed with: Patient, Spouse, Other (RN) Date of Service: Feb 29, 2024 Billing Provider: ZURI BELTRÁN Common Visit Codes: [id number] INP/OBS CARE(HIGH) ZURI BELTRÁN Feb 29, 2024 14:07
--- NOTE | 2024-02-29 15:00 | DVHPN2 ---
Subjective Seen and examined at bedside, cont IVF, EGD on Changes from previous H/P or p: No Changes Objective Vitals Vital Signs Date Time Temp Pulse Resp B/P (MAP) Pulse Ox O2 Delivery O2 Flow Rate FiO2 02/29/24 13:00 98.5 78 16 126/43 (70) 94 98.5 02/29/24 08:10 Room Air* 0 21 Intake/Output Intake and Output 02/29/24 07:00 Intake Total 2730 ml Output Total 1850 ml Balance 880 ml Intake Oral 1380 ml IV Total 1350 ml Output Urine Total 1850 ml Exam General examination- awake, alert, conversant HEENT- PEERLA, no acute nasal discharge Cardiovascular- S1-S2 audible, rate and rhythm regular, no murmur Respiratory- CTAB, no wheeze or rhonchi Gastrointestinal-upper abdominal tenderness++, bowel sound+. Nondistended Musculoskeletal-no acute joint swelling or tenderness or redness# Lower extremity- no leg edema Neurological- cranial nerves intact, no acute dysarthria or dysphagia Psychiatry- denies depression or SI or HI Skin- no acute rash or purpura Medications Current Medications Medications Dose Ordered Sig/Miranda Route Start Time Stop Time Status Last Admin Dose Admin Sodium Chloride 10 ml Q8HR IV 02/25/24 22:00 02/29/24 14:03 10 ML Ondansetron HCl 4 mg Q4HP PRN IV 02/25/24 22:00 02/27/24 10:37 4 MG Acetaminophen 650 mg Q6HP PRN PO 02/25/24 22:00 Morphine Sulfate 2 mg Q4HPRN PRN IV 02/25/24 22:00 Hold Nitroglycerin 0.4 mg Q5MINP PRN SL 02/25/24 22:00 Morphine Sulfate 2 mg Q30M PRN IV 02/25/24 22:00 Hold Amiodarone HCl 200 mg BID PO 02/26/24 10:00 02/29/24 09:43 200 MG Metoprolol Succinate 50 mg DAILY PO 02/26/24 10:00 02/29/24 09:43 50 MG Levothyroxine Sodium 88 mcg DAILY PO 02/26/24 10:00 02/29/24 09:43 88 MCG Sertraline HCl 100 mg DAILY PO 02/26/24 10:00 02/29/24 09:43 100 MG Acetaminophen/ Hydrocodone Bitart 1 tab Q4HPRN PRN PO 02/26/24 08:15 02/29/24 14:01 1 TAB Sucralfate 1 gm QIDACHS PO 02/27/24 17:00 02/29/24 12:38 1 GM Trazodone HCl 50 mg HS PO 02/27/24 22:00 02/28/24 22:31 50 MG Pantoprazole Sodium 40 mg BID IV 02/27/24 22:00 02/29/24 10:57 40 MG Dextrose/Sodium Chloride 1,000 ml @ 125 mls/hr Q8H IV 02/28/24 11:15 02/28/24 13:47 125 MLS/HR Apixaban 5 mg BID PO 03/02/24 22:00 Laboratory Results Laboratory Tests 02/29/24 05:28 Chemistry Test 02/29/24 05:28 Calcium Level 8.6 mg/dL (8.7-10.4) L Urinalysis Test 02/26/24 07:45 Urine Osmolality 334 mOsm/kg Urine Creatinine 129.61 mg/dL (30.0-125.0) H Urine Protein/Creatinine Ratio 0.35 Urine Sodium 72 mmol/L (40-220) Urine Total Protein 45.9 mg/dL (1-14) H Assessment/Plan Assessment/Plan #Acute abdominal pain likely due to gastritis -upper abdominal pain, tenderness on palpation -serum lipase 33 - CT abdomen- No acute abdominal or pelvic findings. Multiple nonobstructive right renal calculi. Likely focal fatty infiltration in the liver along the falciform ligament. Calcified fibroid in the uterus. -continue IV normal saline as prescribed -continue pain medication as prescribed -continue pantoprazole 40 mg IV daily -continue IV fluid as prescribed -EGD on # suspected acute gastritis --upper abdominal pain, tenderness on palpation -serum lipase 33 - CT abdomen- No acute abdominal or pelvic findings. Likely focal fatty infiltration in the liver along the falciform ligament. -continue IV normal saline as prescribed -continue pain medication as prescribed -continue pantoprazole 40 mg IV daily -EGD on # CAROLYN with anuria likely due to dehydration, VMN -avoid dehydration and nephrotoxic drugs --c/w IV fluid as prescribed -strict intake output chart -monitor vitals # hypokalemia likely due to vomiting -replenished potassium as prescribed -continue IV normal saline as prescribed -repeat CMP #NSTEMI type 2 likely demand related ischemia -troponin I 50> 49> 48 -EKG- sinus rhythm, old inferior [place] -echo on 12/26/2023 revealed LVEF 65%, mild LVH and mild LV diastolic dysfunction # history of right-sided renal calculus, status post ESWLx2 -patient had ESWL x2 by Dr. Barron in September and October 23, 2023 -CT scan of the abdomen- Multiple nonobstructive right renal calculi. -follow up outpatient # atrial fibrillation Continue p.o. b.i.d. # history of CVA with left-sided hemiparesis -continue current medical condition # hypertension -continue hydralazine 10 mg q.6h p.r.n. # hypothyroidism -on 11/30/2023-TSH 8.47 -continue levothyroxine 88 mcg p.o. q.a.m. # transaminitis -monitor CMP Plan discussed with: Patient My Orders Orders - BRENNAN DARBY MD Procedure Category Date Status Time * Picc Line Consult CONS 02/29/24 Transmitted 09:18 Date of Service: Feb 29, 2024 Billing Provider: BRENNAN DARBY MD Common Visit Codes: [id number] INP/OBS CARE(HIGH) BRENNAN DARBY MD Feb 29, 2024 15:00
[2024-03-01] VITALS (7 sets, daily range): BP systolic 113–139; BP diastolic 36–72; PULSE 70; RESP 16–20; TEMP 98–98.8; O2SAT 92–96
--- NOTE | 2024-03-01 10:05 | DVHPN2 ---
Subjective He is complaining of epigastric abdominal pain Changes from previous H/P or p: Changes Objective Vitals Vital Signs Date Time Temp Pulse Resp B/P (MAP) Pulse Ox O2 Delivery O2 Flow Rate FiO2 03/01/24 08:43 98.0 70 20 113/36 (61) 92 98.0 02/29/24 20:00 Room Air* 0 21 Intake/Output Intake and Output 03/01/24 07:00 Intake Total 2794 ml Output Total 1550 ml Balance 1244 ml Intake Oral 920 ml IV Total 1874 ml Output Urine Total 1550 ml Medications Current Medications Medications Dose Ordered Sig/Miranda Route Start Time Stop Time Status Last Admin Dose Admin Sodium Chloride 10 ml Q8HR IV 02/25/24 22:00 03/01/24 05:33 10 ML Ondansetron HCl 4 mg Q4HP PRN IV 02/25/24 22:00 02/27/24 10:37 4 MG Acetaminophen 650 mg Q6HP PRN PO 02/25/24 22:00 Morphine Sulfate 2 mg Q4HPRN PRN IV 02/25/24 22:00 Hold Nitroglycerin 0.4 mg Q5MINP PRN SL 02/25/24 22:00 Morphine Sulfate 2 mg Q30M PRN IV 02/25/24 22:00 Hold Amiodarone HCl 200 mg BID PO 02/26/24 10:00 02/29/24 21:10 200 MG Metoprolol Succinate 50 mg DAILY PO 02/26/24 10:00 02/29/24 09:43 50 MG Levothyroxine Sodium 88 mcg DAILY PO 02/26/24 10:00 02/29/24 09:43 88 MCG Sertraline HCl 100 mg DAILY PO 02/26/24 10:00 02/29/24 09:43 100 MG Acetaminophen/ Hydrocodone Bitart 1 tab Q4HPRN PRN PO 02/26/24 08:15 03/01/24 06:19 1 TAB Sucralfate 1 gm QIDACHS PO 02/27/24 17:00 03/01/24 06:17 1 GM Trazodone HCl 50 mg HS PO 02/27/24 22:00 02/29/24 21:10 50 MG Pantoprazole Sodium 40 mg BID IV 02/27/24 22:00 02/29/24 21:11 40 MG Dextrose/Sodium Chloride 1,000 ml @ 125 mls/hr Q8H IV 02/28/24 11:15 03/01/24 03:08 125 MLS/HR Apixaban 5 mg BID PO 03/02/24 22:00 Laboratory Results Laboratory Tests 02/29/24 05:28 Urinalysis Test 02/26/24 07:45 Urine Osmolality 334 mOsm/kg Urine Creatinine 129.61 mg/dL (30.0-125.0) H Urine Protein/Creatinine Ratio 0.35 Urine Sodium 72 mmol/L (40-220) Urine Total Protein 45.9 mg/dL (1-14) H Assessment/Plan Assessment/Plan Abdominal pain most likely due to gastritis, GERD Acute kidney injury due to vasomotor nephropathy Hypokalemia NSTEMI type 2 0.5 cm left kidney stone History of breast cancer History of stroke Atrial fibrillation Hypertension Hypothyroidism Plan Continue IV fluids Continue amiodarone b.i.d. Nephrology consult Continue Eliquis Add Protonix and Carafate Monitor the kidney function closely Replace potassium Discussed with the at the bedside 03/01/2024: Patient is scheduled for EGD tomorrow Continue to hold Eliquis Continue PPI and Carafate Monitor closely Plan discussed with: Patient Date of Service: Mar 01, 2024 Billing Provider: BENJAMIN PADILLA MD Common Visit Codes: [id number] INP/OBS CARE(HIGH) BENJAMIN PADILLA MD Mar 01, 2024 10:05
--- NOTE | 2024-03-01 11:54 | DVHPN2 ---
Subjective No changes Changes from previous H/P or p: No Changes Objective Vitals Vital Signs Date Time Temp Pulse Resp B/P (MAP) Pulse Ox O2 Delivery O2 Flow Rate FiO2 03/01/24 10:25 75 134/69 03/01/24 08:43 98.0 20 92 98.0 02/29/24 20:00 Room Air* 0 21 Intake/Output Intake and Output 03/01/24 06:59 Intake Total 2794 ml Output Total 1550 ml Balance 1244 ml Intake Oral 920 ml IV Total 1874 ml Output Urine Total 1550 ml General Appearance: Alert, Oriented X3, Cooperative, No acute distress, mild distress, moderate distress, severe distress, Other Lungs: Clear to auscultation, Normal air movement, Other Cardiovascular: Regular rate, Normal S1, Normal S2, No murmurs, Gallops, Rubs, Other Abdomen: Normal bowel sounds, Soft, No tenderness (+epigastric tenderness), No hepatospenomegaly, No masses, Other Medications Current Medications Medications Dose Ordered Sig/Miranda Route Start Time Stop Time Status Last Admin Dose Admin Sodium Chloride 10 ml Q8HR IV 02/25/24 22:00 03/01/24 05:33 10 ML Ondansetron HCl 4 mg Q4HP PRN IV 02/25/24 22:00 02/27/24 10:37 4 MG Acetaminophen 650 mg Q6HP PRN PO 02/25/24 22:00 Morphine Sulfate 2 mg Q4HPRN PRN IV 02/25/24 22:00 Hold Nitroglycerin 0.4 mg Q5MINP PRN SL 02/25/24 22:00 Morphine Sulfate 2 mg Q30M PRN IV 02/25/24 22:00 Hold Amiodarone HCl 200 mg BID PO 02/26/24 10:00 03/01/24 10:24 200 MG Metoprolol Succinate 50 mg DAILY PO 02/26/24 10:00 03/01/24 10:25 50 MG Levothyroxine Sodium 88 mcg DAILY PO 02/26/24 10:00 03/01/24 10:24 88 MCG Sertraline HCl 100 mg DAILY PO 02/26/24 10:00 03/01/24 10:25 100 MG Acetaminophen/ Hydrocodone Bitart 1 tab Q4HPRN PRN PO 02/26/24 08:15 03/01/24 06:19 1 TAB Sucralfate 1 gm QIDACHS PO 02/27/24 17:00 03/01/24 10:42 1 GM Trazodone HCl 50 mg HS PO 02/27/24 22:00 02/29/24 21:10 50 MG Pantoprazole Sodium 40 mg BID IV 02/27/24 22:00 03/01/24 10:23 40 MG Dextrose/Sodium Chloride 1,000 ml @ 125 mls/hr Q8H IV 02/28/24 11:15 03/01/24 10:43 125 MLS/HR Apixaban 5 mg BID PO 03/02/24 22:00 Laboratory Results Laboratory Tests 02/29/24 05:28 Urinalysis Test 02/26/24 07:45 Urine Osmolality 334 mOsm/kg Urine Creatinine 129.61 mg/dL (30.0-125.0) H Urine Protein/Creatinine Ratio 0.35 Urine Sodium 72 mmol/L (40-220) Urine Total Protein 45.9 mg/dL (1-14) H Labs and/or images reviewed: Labs reviewed by me, Image(s) reviewed by me Assessment/Plan Assessment/Plan #Abdominal pain # history of Viridiana #Anemia # fatty liver disease Plan: Discussed with Dr. Workman Plan for EGD tomorrow 03/02/2024 Discussed risks benefits alternatives of the procedure and sedation, patient understands and agrees hold eliquis Monitor lab Plan discussed with: Patient, Spouse, Other (RN) My Orders Orders - ZURI BELTRÁN Procedure Category Date Status Time Npo After Midnight DIET 03/01/24 Transmitted Lunch Obtain Consent For: ORDERS 03/01/24 Transmitted 11:50 Obtain Consent For TARI 03/01/24 In Process Anesthesia 11:50 Prothrombin Time W/ LAB 03/01/24 Transmitted INR 11:51 Date of Service: Mar 01, 2024 Billing Provider: ZURI BELTRÁN Common Visit Codes: [id number] INP/OBS CARE(MOD) ZURI BELTRÁN Mar 01, 2024 11:54
--- NOTE | 2024-03-01 11:57 | DVHPN2 ---
Progress Note Date Seen: Mar 01, 2024 Medical Necessity Reason Pt with a Central, PICC or Fol: Yes The following are medically ne: Delgado Catheter Subjective Patient reports: No new complaints Other Systems: Patient seen and examined by myself today in follow-up Objective vital signs Vital Sign Date Time Temp Pulse Resp B/P (MAP) Pulse Ox O2 Delivery O2 Flow Rate FiO2 03/01/24 10:25 75 134/69 03/01/24 08:43 98.0 20 92 98.0 02/29/24 20:00 Room Air* 0 21 Total Intake and Output 02/29/24 02/29/24 03/01/24 15:00 23:00 07:00 Intake Total 274 ml 740 ml 1780 ml Output Total 1000 ml 550 ml Balance 274 ml -260 ml 1230 ml medications Current Medications Medications Dose Ordered Sig/Miranda Route Start Time Stop Time Status Last Admin Dose Admin Sodium Chloride 10 ml Q8HR IV 02/25/24 22:00 03/01/24 05:33 10 ML Ondansetron HCl 4 mg Q4HP PRN IV 02/25/24 22:00 02/27/24 10:37 4 MG Acetaminophen 650 mg Q6HP PRN PO 02/25/24 22:00 Morphine Sulfate 2 mg Q4HPRN PRN IV 02/25/24 22:00 Hold Nitroglycerin 0.4 mg Q5MINP PRN SL 02/25/24 22:00 Morphine Sulfate 2 mg Q30M PRN IV 02/25/24 22:00 Hold Amiodarone HCl 200 mg BID PO 02/26/24 10:00 03/01/24 10:24 200 MG Metoprolol Succinate 50 mg DAILY PO 02/26/24 10:00 03/01/24 10:25 50 MG Levothyroxine Sodium 88 mcg DAILY PO 02/26/24 10:00 03/01/24 10:24 88 MCG Sertraline HCl 100 mg DAILY PO 02/26/24 10:00 03/01/24 10:25 100 MG Acetaminophen/ Hydrocodone Bitart 1 tab Q4HPRN PRN PO 02/26/24 08:15 03/01/24 06:19 1 TAB Sucralfate 1 gm QIDACHS PO 02/27/24 17:00 03/01/24 10:42 1 GM Trazodone HCl 50 mg HS PO 02/27/24 22:00 02/29/24 21:10 50 MG Pantoprazole Sodium 40 mg BID IV 02/27/24 22:00 03/01/24 10:23 40 MG Dextrose/Sodium Chloride 1,000 ml @ 125 mls/hr Q8H IV 02/28/24 11:15 03/01/24 10:43 125 MLS/HR Apixaban 5 mg BID PO 03/02/24 22:00 Examination: LUNGS:Normal, CVS:Normal laboratory and microbiology Laboratory Tests 02/29/24 05:28 Test 02/29/24 05:28 Range/Units Serum Glucose 94 74-106 mg/dL Problem List/Assessment/Plan Problem List/Assessment/Plan Acute kidney injury superimposed Chronic Kidney Disease secondary hemodynamic mediated Nephrolithiasis, nonobstructing Hypertension Hypokalemia Hypomagnesemia Dehydration History of breast cancer Recommendations Kidney function continues to improve Increased urine output Strict I&Os Magnesium sulfate IV piggyback KCL replacement I agree with IV fluid hydration with sodium bicarb CT scan reported nonobstructing kidney stones We will continue to follow Plan discussed with: Patient DANG MARTÍNEZ MD Mar 01, 2024 11:57
[2024-03-01] MEDS: SODIUM BICARB 50mEq/50ml Vial 50 ML in SOD CHL 0.45% 1,000 ML IV SCH (13:21)
[2024-03-01] MEDS: POTASSIUM EFFERVESENT TAB 25 MEQ PO ONE (13:21)
[2024-03-01 14:18] LABS: INR 1.09 (0.9-1.15); Prothrombin Time 11.5 sec (9.3-11.8)
[2024-03-02] VITALS (7 sets, daily range): BP systolic 128–141; BP diastolic 45–99; PULSE 70–78; RESP 12–17; TEMP 98.1–98.5; O2SAT 93–98
[2024-03-02] MEDS ORDERED: SODIUM CHLORIDE LOCK 10 ML ONE (07:20)
[2024-03-02] MEDS ORDERED: diphenhdrAMINE HCL 50 MG/1 ML VL ONE (07:21)
[2024-03-02 07:42] LABS: Basophils # (auto) 0 10 ^3/uL (0-0.2); Basophils % (auto) 0.7 % (0.0-2.0); Eosinophils # (auto) 0.2 10 ^3/uL (0-0.8); Eosinophils % (auto) 3.2 % (0.0-7.0); Hematocrit 30.3 % (36.0-46.0); Hemoglobin 10.4 g/dL (12.2-16.2); Lymphocytes # (auto) 1.2 10 ^3/uL (0.4-5.4); Lymphocytes % (auto) 22.2 % (10.0-50.0); Mean Corpuscular Hemoglobin 33.4 pg (28.0-32.0); Mean Corpuscular Hgb Conc. 34.2 g/dL (32.0-36.0); Mean Corpuscular Volume 97.6 fL (80.0-100.0); Monocytes # (auto) 0.2 10 ^3/uL (0-1.3); Monocytes % (auto) 4.3 % (0.0-12.0); Neutrophils # (auto) 3.7 10 ^3/uL (1.6-8.6); Neutrophils % (auto) 69.6 % (37.0-80.0); Nucleated Red Blood Cells % 0.1 %; Platelet Count (auto) 177 10^3/uL (140-450); Red Blood Cells 3.11 10^6/uL (4.0-5.20); Red Cell Distribution Width 14.8 % (11.8-14.3); White Blood Cell 5.3 10^3/uL (4.4-10.8)
[2024-03-02 08:12] LABS: Alanine Aminotransferase 30 U/L (7-40); Alkaline Phosphatase 89 U/L (46-116); Anion Gap 10 (5-15); Aspartate Aminotransferase 22 U/L (13-40); BUN/Creatinine Ratio 13.3 (10.0-20.0); Bilirubin, Total 0.3 mg/dL (0.2-1.0); Blood Urea Nitrogen 12 mg/dL (9-23); Carbon Dioxide 22 mmol/L (20-31); Chloride 110 mmol/L (98-107); Glucose 79 mg/dL (74-106); Potassium 2.9 mmol/L (3.5-5.1); Sodium 142 mmol/L (136-145)
[2024-03-02 08:13] LABS: Calcium 8.5 mg/dL (8.7-10.4); Magnesium 1.6 mg/dL (1.6-2.6)
[2024-03-02] MEDS: fentaNYL CITRATE 100 MCG/2 ML VL ONE (08:17)
[2024-03-02] MEDS: MIDAZOLAM HCL 5 MG/ML-1ML VIAL ONE (08:17)
--- NOTE | 2024-03-02 08:31 | DVHNC2 ---
Procedure - PROCEDURE PERFORMED BY: Cheri Workman MD REFERRING PROVIDER: Dr. Elder PROCEDURE PERFORMED: 1. Esophagogastroduodenoscopy with biopsy with moderate sedation PRE-PROCEDURE DIAGNOSIS: 1. Anemia 2. Epigastric abdominal pain POSTPROCEDURE DIAGNOSIS: 1. CANDIDAL ESOPHAGITIS 2. MILD GASTRITIS MEDICATIONS USED: 3mg IV Versed, 50 mcg of Fentanyl IV DETAILS OF THE PROCEDURE: Informed consent was obtained after risks benefits and alternatives were discussed at length with patient patient gave consent to the procedure as well as medication used for sedation. The patient was placed in left lateral decubitus position. An Olympus variable endoscope was inserted into the oropharynx advanced into the esophagus, then into the stomach, then into the duodenal bulb and duodenum. The scope was then withdrawn. The mucosa was carefully evaluated. The duodenum was normal to the 3rd portion. The stomach showed gastritis, biopsies were taken the body and antrum and sent for H pylori as well as pathology. Retroflexion showed no abnormalities. The scope was withdrawn. The esophagus showed candidal esophagitis with the Z-line at 39 cm. The scope was then withdrawn and the procedure completed. The patient tolerated the procedure well. IMPRESSION: 1. Candidal esophagitis 2. Mild gastritis Patient's symptoms may be secondary to candidal esophagitis versus other. Patient states that her symptoms have been improving. RECOMMENDATIONS: 1. Follow up in GI Clinic for procedure and pathology results 2. Anti-reflux precautions 3. Patient should be on a proton pump inhibitor 30 minutes before breakfast daily and/or Carafate if it helps with her symptoms 4. Consider further workup for the patient's symptoms that they persist or worsen 5. Patient should be on Diflucan 100 mg daily 6. Avoid caffeine, spicy food, alcohol, chocolate, tomatoes, citrus, late night eating. 7. May restart anticoagulation in 24 hours 8. Consider further workup for anemia, caution with anticoagulation I WOULD LIKE TO THANK DR. ELDER FOR THIS REFERRAL CHERI WORKMAN MD Mar 02, 2024 08:31
[2024-03-02] MEDS: FLUCONAZOLE 200MG/100ML 100 ML IV SCH (10:00)
[2024-03-02] MEDS: POTASSIUM CHL 20MEQ/100ML 100 ML IV ONE (11:44)
[2024-03-02] MEDS: POTASSIUM EFFERVESENT TAB 25 MEQ GT ONE (11:44)
[2024-03-02] MEDS: MAGNESIUM SULFATE 1GM/100ML 100 ML IV SCH (11:44)
--- NOTE | 2024-03-02 12:44 | DVHPN2 ---
Subjective He is still complaining of abdominal pain EGD showed candidiasis Potassium 2.9 Changes from previous H/P or p: Changes Objective Vitals Vital Signs Date Time Temp Pulse Resp B/P (MAP) Pulse Ox O2 Delivery O2 Flow Rate FiO2 03/02/24 11:44 86 130/80 03/02/24 05:00 98.5 17 96 98.5 03/01/24 20:00 Room Air* 0 21 Intake/Output Intake and Output 03/02/24 07:00 Intake Total 1650 ml Output Total 1200 ml Balance 450 ml Intake Oral 600 ml IV Total 1050 ml Output Urine Total 1200 ml General Appearance: Alert, Oriented X3, Cooperative, No acute distress, mild distress, moderate distress, severe distress, Other Lungs: Clear to auscultation, Normal air movement, Other Cardiovascular: Regular rate, Normal S1, Normal S2, No murmurs, Gallops, Rubs, Other Abdomen: Normal bowel sounds, Soft, No tenderness (+epigastric tenderness), No hepatospenomegaly, No masses, Other Medications Current Medications Medications Dose Ordered Sig/Miranda Route Start Time Stop Time Status Last Admin Dose Admin Sodium Chloride 10 ml Q8HR IV 02/25/24 22:00 03/02/24 06:32 10 ML Ondansetron HCl 4 mg Q4HP PRN IV 02/25/24 22:00 02/27/24 10:37 4 MG Acetaminophen 650 mg Q6HP PRN PO 02/25/24 22:00 Morphine Sulfate 2 mg Q4HPRN PRN IV 02/25/24 22:00 Hold Nitroglycerin 0.4 mg Q5MINP PRN SL 02/25/24 22:00 Morphine Sulfate 2 mg Q30M PRN IV 02/25/24 22:00 Hold Amiodarone HCl 200 mg BID PO 02/26/24 10:00 03/02/24 11:44 200 MG Metoprolol Succinate 50 mg DAILY PO 02/26/24 10:00 03/02/24 11:44 50 MG Levothyroxine Sodium 88 mcg DAILY PO 02/26/24 10:00 03/02/24 11:44 88 MCG Sertraline HCl 100 mg DAILY PO 02/26/24 10:00 03/02/24 11:44 100 MG Acetaminophen/ Hydrocodone Bitart 1 tab Q4HPRN PRN PO 02/26/24 08:15 03/01/24 21:36 1 TAB Sucralfate 1 gm QIDACHS PO 02/27/24 17:00 03/02/24 11:45 1 GM Trazodone HCl 50 mg HS PO 02/27/24 22:00 03/01/24 21:35 50 MG Pantoprazole Sodium 40 mg BID IV 02/27/24 22:00 03/02/24 11:44 40 MG Apixaban 5 mg BID PO 03/02/24 22:00 Sodium Bicarbonate 50 ml/ Sodium Chloride 1,050 ml @ 120 mls/hr Q8H45M IV 03/01/24 12:00 03/01/24 23:07 120 MLS/HR Fluconazole 100 ml @ 100 mls/hr DAILY IV 03/02/24 10:00 Magnesium Sulfate/ Dextrose 100 ml @ 100 mls/hr Q1HR IV 03/02/24 11:00 03/02/24 12:59 03/02/24 12:16 100 MLS/HR Laboratory Results Laboratory Tests 03/02/24 05:52 Chemistry Test 03/02/24 05:52 Albumin 3.0 g/dL (3.2-4.8) L Calcium Level 8.5 mg/dL (8.7-10.4) L Magnesium Level 1.6 mg/dL (1.6-2.6) Total Protein 5.0 g/dL (5.7-8.2) L Coagulation Test 03/01/24 13:49 Prothrombin Time 11.5 sec (9.3-11.8) Prothrombin Time INR 1.09 (0.9-1.15) LFT Test 03/02/24 05:52 Alanine Aminotransferase (ALT) 30 U/L (7-40) Alkaline Phosphatase 89 U/L (46-116) Aspartate Amino Transferase (AST) 22 U/L (13-40) Total Bilirubin 0.3 mg/dL (0.2-1.0) Urinalysis Test 02/26/24 07:45 Urine Osmolality 334 mOsm/kg Urine Creatinine 129.61 mg/dL (30.0-125.0) H Urine Protein/Creatinine Ratio 0.35 Urine Sodium 72 mmol/L (40-220) Urine Total Protein 45.9 mg/dL (1-14) H Assessment/Plan Assessment/Plan Abdominal pain most likely due to gastritis, GERD Acute kidney injury due to vasomotor nephropathy Hypokalemia NSTEMI type 2 0.5 cm left kidney stone History of breast cancer History of stroke Atrial fibrillation Hypertension Hypothyroidism Plan Continue IV fluids Continue amiodarone b.i.d. Nephrology consult Continue Eliquis Add Protonix and Carafate Monitor the kidney function closely Replace potassium Discussed with the at the bedside 03/01/2024: Patient is scheduled for EGD tomorrow Continue to hold Eliquis Continue PPI and Carafate Monitor closely 03/02/2024: EGD showed candidiasis: Start IV Diflucan and p.o. nystatin Hypokalemia: Replace Hypomagnesemia: Replace Amiodarone p.o. b.i.d. Continue Eliquis Plan discussed with: Patient, Spouse My Orders Orders - BENJAMIN PADILLA MD Procedure Category Date Status Time Fluconazole PHA 03/02/24 In Process 200mg/100ml (Diflucan 10:00 Magnesium Sulfate PHA 03/02/24 In Process 1gm/100ml 11:00 Consistent DIET 03/02/24 Transmitted Carb(Ccho)Diabetes Lunch Date of Service: Mar 02, 2024 Billing Provider: BENJAMIN PADILLA MD Common Visit Codes: [id number] INP/OBS CARE(HIGH) BENJAMIN PADILLA MD Mar 02, 2024 12:44
[2024-03-02] MEDS ORDERED: SODIUM BICARB 50mEq/50ml Vial 50 ML in SOD CHL 0.45% 1,000 ML IV SCH (12:45)
--- NOTE | 2024-03-02 14:34 | DVHPN2 ---
Progress Note Date Seen: Mar 02, 2024 Medical Necessity Reason Pt with a Central, PICC or Fol: Yes The following are medically ne: Delgado Catheter Subjective Patient reports: No new complaints, Feels better Review of Systems: HEENT:Normal, CVS:Normal, RESPIRATORY:Normal, GI:Normal, :Normal, MSK:Normal, NEURO:Normal Objective vital signs Vital Sign Date Time Temp Pulse Resp B/P (MAP) Pulse Ox O2 Delivery O2 Flow Rate FiO2 03/02/24 11:44 86 130/80 03/02/24 05:00 98.5 17 96 98.5 03/01/24 20:00 Room Air* 0 21 Total Intake and Output 03/01/24 03/01/24 03/02/24 15:00 23:00 07:00 Intake Total 550 ml 1100 ml Output Total 400 ml 800 ml Balance 150 ml 300 ml medications Current Medications Medications Dose Ordered Sig/Miranda Route Start Time Stop Time Status Last Admin Dose Admin Sodium Chloride 10 ml Q8HR IV 02/25/24 22:00 03/02/24 06:32 10 ML Ondansetron HCl 4 mg Q4HP PRN IV 02/25/24 22:00 02/27/24 10:37 4 MG Acetaminophen 650 mg Q6HP PRN PO 02/25/24 22:00 Morphine Sulfate 2 mg Q4HPRN PRN IV 02/25/24 22:00 Hold Nitroglycerin 0.4 mg Q5MINP PRN SL 02/25/24 22:00 Morphine Sulfate 2 mg Q30M PRN IV 02/25/24 22:00 Hold Amiodarone HCl 200 mg BID PO 02/26/24 10:00 03/02/24 11:44 200 MG Metoprolol Succinate 50 mg DAILY PO 02/26/24 10:00 03/02/24 11:44 50 MG Levothyroxine Sodium 88 mcg DAILY PO 02/26/24 10:00 03/02/24 11:44 88 MCG Sertraline HCl 100 mg DAILY PO 02/26/24 10:00 03/02/24 11:44 100 MG Acetaminophen/ Hydrocodone Bitart 1 tab Q4HPRN PRN PO 02/26/24 08:15 03/01/24 21:36 1 TAB Sucralfate 1 gm QIDACHS PO 02/27/24 17:00 03/02/24 11:45 1 GM Trazodone HCl 50 mg HS PO 02/27/24 22:00 03/01/24 21:35 50 MG Pantoprazole Sodium 40 mg BID IV 02/27/24 22:00 03/02/24 11:44 40 MG Apixaban 5 mg BID PO 03/02/24 22:00 Fluconazole 100 ml @ 100 mls/hr DAILY IV 03/02/24 10:00 Sodium Bicarbonate 50 ml/ Sodium Chloride 1,050 ml @ 75 mls/hr Q14H IV 03/02/24 12:45 UNV Nystatin 5 ml QID MT 03/02/24 18:00 UNV laboratory and microbiology Laboratory Tests 03/02/24 05:52 Test 03/02/24 05:52 Range/Units Serum Glucose 79 74-106 mg/dL Problem List/Assessment/Plan Problem List/Assessment/Plan Acute kidney injury superimposed Chronic Kidney Disease secondary hemodynamic mediated Nephrolithiasis, nonobstructing Hypertension Hypokalemia Hypomagnesemia Dehydration History of breast cancer recs stop bicarb drip kcl replace prn i will sign off the case/pls reconsult as needed Plan discussed with: Patient, Spouse Dietary Evaluation Review Comments: 1) Continue to monitor pt PO intake to meet at least 75% of meals 2) Advance pt diet when medically feasible to a Cardiac diet 3) Continue current plan of care Expected Outcomes/Goals: 1) Pt appetite to improve 2) Pt diet to advance 3) F/U in 3-5 days ANDREW HERNANDEZ MD Mar 02, 2024 14:34
[2024-03-02] MEDS: NYSTATIN (MOUTH-THROAT) 500,000 UNITS/5 ML SUSP MT SCH (18:00)
[2024-03-02] MEDS: APIXABAN 5 MG TAB PO SCH (21:30)
[2024-03-03] VITALS (8 sets, daily range): BP systolic 133–152; BP diastolic 39–71; PULSE 69–72; RESP 13–18; TEMP 98–98.5; O2SAT 94–99
[2024-03-03 07:08] LABS: Anion Gap 9 (5-15); Carbon Dioxide 24 mmol/L (20-31); Sodium 143 mmol/L (136-145)
[2024-03-03 07:09] LABS: Calcium 8.6 mg/dL (8.7-10.4); Chloride 110 mmol/L (98-107); Potassium 2.9 mmol/L (3.5-5.1)
[2024-03-03 07:13] LABS: Glucose 82 mg/dL (74-106)
[2024-03-03 07:14] LABS: BUN/Creatinine Ratio 11.4 (10.0-20.0); Blood Urea Nitrogen 9 mg/dL (9-23); Magnesium 1.4 mg/dL (1.6-2.6)
[2024-03-03] MEDS: POTASSIUM CHL 20 Meq TABLET PO ONE (14:28)
[2024-03-03] MEDS: POLYETHYLENE GLYCOL 17 GM PWDR PO PRN (14:29)
--- NOTE | 2024-03-03 20:12 | DVHPN2 ---
Progress Note Date Seen: Mar 03, 2024 Medical Necessity Reason Pt with a Central, PICC or Fol: Yes The following are medically ne: Delgado Catheter Subjective Patient reports: No new complaints Review of Systems: HEENT:Normal, CVS:Normal, RESPIRATORY:Normal, GI:Normal, :Normal, MSK:Normal, NEURO:Normal Objective vital signs Vital Sign Date Time Temp Pulse Resp B/P (MAP) Pulse Ox O2 Delivery O2 Flow Rate FiO2 03/03/24 17:00 98.0 70 17 152/51 (84) 95 98.0 03/03/24 08:00 Room Air* 0 21 Total Intake and Output 03/02/24 03/02/24 03/03/24 15:00 23:00 07:00 Intake Total 550 ml 650 ml 400 ml Output Total 625 ml 500 ml Balance 550 ml 25 ml -100 ml medications Current Medications Medications Dose Ordered Sig/Miranda Route Start Time Stop Time Status Last Admin Dose Admin Sodium Chloride 10 ml Q8HR IV 02/25/24 22:00 03/03/24 14:29 10 ML Ondansetron HCl 4 mg Q4HP PRN IV 02/25/24 22:00 02/27/24 10:37 4 MG Acetaminophen 650 mg Q6HP PRN PO 02/25/24 22:00 Morphine Sulfate 2 mg Q4HPRN PRN IV 02/25/24 22:00 Hold Nitroglycerin 0.4 mg Q5MINP PRN SL 02/25/24 22:00 Morphine Sulfate 2 mg Q30M PRN IV 02/25/24 22:00 Hold Amiodarone HCl 200 mg BID PO 02/26/24 10:00 03/03/24 10:48 200 MG Metoprolol Succinate 50 mg DAILY PO 02/26/24 10:00 03/03/24 10:47 50 MG Levothyroxine Sodium 88 mcg DAILY PO 02/26/24 10:00 03/03/24 10:48 88 MCG Sertraline HCl 100 mg DAILY PO 02/26/24 10:00 03/03/24 10:47 100 MG Acetaminophen/ Hydrocodone Bitart 1 tab Q4HPRN PRN PO 02/26/24 08:15 03/02/24 15:12 1 TAB Sucralfate 1 gm QIDACHS PO 02/27/24 17:00 03/03/24 17:00 1 GM Trazodone HCl 50 mg HS PO 02/27/24 22:00 03/02/24 21:30 50 MG Pantoprazole Sodium 40 mg BID IV 02/27/24 22:00 03/03/24 10:46 40 MG Apixaban 5 mg BID PO 03/02/24 22:00 03/03/24 10:48 5 MG Fluconazole 100 ml @ 100 mls/hr DAILY IV 03/02/24 10:00 03/03/24 10:47 100 MLS/HR Nystatin 5 ml QID MT 03/02/24 18:00 03/03/24 18:00 5 ML Docusate Sodium 100 mg BID PO 03/03/24 22:00 Polyethylene Glycol 17 gm DAILYPRN PRN PO 03/03/24 11:45 03/03/24 14:29 17 GM Potassium Chloride 40 meq DAILY PO 03/04/24 10:00 laboratory and microbiology Laboratory Tests 03/03/24 06:09 03/02/24 05:52 Test 03/03/24 06:09 Range/Units Serum Glucose 82 74-106 mg/dL Problem List/Assessment/Plan Problem List/Assessment/Plan Acute kidney injury superimposed Chronic Kidney Disease secondary hemodynamic mediated Nephrolithiasis, nonobstructing Hypertension Hypokalemia Hypomagnesemia Dehydration History of breast cancer recs trial of spironolactone given hypokalemia and HTN stop triamterene -hctz home med on discharge Plan discussed with: Patient My Orders My Orders Orders - ANDREW HERNANDEZ MD Procedure Category Date Status Time Spironolactone PHA 03/04/24 Transmitted (Aldactone) 10:00 Spironolactone PHA 03/03/24 Transmitted (Aldactone) 20:15 Dietary Evaluation Review Comments: 1) Continue to monitor pt PO intake to meet at least 75% of meals 2) Advance pt diet when medically feasible to a Cardiac diet 3) Continue current plan of care Expected Outcomes/Goals: 1) Pt appetite to improve 2) Pt diet to advance 3) F/U in 3-5 days ANDREW HERNANDEZ MD Mar 03, 2024 20:12
[2024-03-03] MEDS: SPIRONOLACTONE 25 MG TAB PO ONE (21:54)
[2024-03-03] MEDS: DOCUSATE SOD 100 MG CAP PO SCH (22:07)
[2024-03-04] VITALS (8 sets, daily range): BP systolic 118–150; BP diastolic 38–56; PULSE 70; RESP 17–20; TEMP 98.1–98.9; O2SAT 95–98
[2024-03-04 06:10] LABS: Basophils # (auto) 0 10 ^3/uL (0-0.2); Basophils % (auto) 0.6 % (0.0-2.0); Eosinophils # (auto) 0.1 10 ^3/uL (0-0.8); Eosinophils % (auto) 2.4 % (0.0-7.0); Hematocrit 28.6 % (36.0-46.0); Hemoglobin 9.8 g/dL (12.2-16.2); Lymphocytes # (auto) 1.2 10 ^3/uL (0.4-5.4); Lymphocytes % (auto) 23.3 % (10.0-50.0); Mean Corpuscular Hemoglobin 32.7 pg (28.0-32.0); Mean Corpuscular Hgb Conc. 34.1 g/dL (32.0-36.0); Monocytes # (auto) 0.3 10 ^3/uL (0-1.3); Monocytes % (auto) 4.7 % (0.0-12.0); Neutrophils # (auto) 3.7 10 ^3/uL (1.6-8.6); Platelet Count (auto) 186 10^3/uL (140-450); Red Blood Cells 2.98 10^6/uL (4.0-5.20); Red Cell Distribution Width 15.1 % (11.8-14.3); White Blood Cell 5.3 10^3/uL (4.4-10.8)
[2024-03-04 06:21] LABS: Anion Gap 10 (5-15); Carbon Dioxide 23 mmol/L (20-31)
[2024-03-04 06:27] LABS: BUN/Creatinine Ratio 8.9 (10.0-20.0); Glucose 83 mg/dL (74-106)
[2024-03-04 06:31] LABS: Blood Urea Nitrogen 7 mg/dL (9-23); Calcium 8.2 mg/dL (8.7-10.4); Chloride 112 mmol/L (98-107); Sodium 145 mmol/L (136-145)
[2024-03-04] MEDS: POTASSIUM CHL 20 Meq TABLET PO SCH (10:44)
[2024-03-04] MEDS: SPIRONOLACTONE 25 MG TAB PO SCH (10:51)
--- NOTE | 2024-03-04 13:53 | DVHPN2 ---
Objective Vitals Vital Signs Date Time Temp Pulse Resp B/P (MAP) Pulse Ox O2 Delivery O2 Flow Rate FiO2 03/04/24 10:47 69 136/50 03/04/24 09:00 98.1 17 96 98.1 03/03/24 20:00 Room Air* 0 21 Intake/Output Intake and Output 03/04/24 07:00 Intake Total 940 ml Output Total 1250 ml Balance -310 ml Intake Oral 940 ml Output Urine Total 1250 ml # Bowel Movements 2 General Appearance: Alert, Oriented X3, Cooperative, No acute distress, mild distress, moderate distress, severe distress, Other Lungs: Clear to auscultation, Normal air movement, Other Cardiovascular: Regular rate, Normal S1, Normal S2, No murmurs, Gallops, Rubs, Other Abdomen: Normal bowel sounds, Soft, No tenderness (+epigastric tenderness), No hepatospenomegaly, No masses, Other Medications Current Medications Medications Dose Ordered Sig/Miranda Route Start Time Stop Time Status Last Admin Dose Admin Sodium Chloride 10 ml Q8HR IV 02/25/24 22:00 03/03/24 21:56 10 ML Ondansetron HCl 4 mg Q4HP PRN IV 02/25/24 22:00 02/27/24 10:37 4 MG Acetaminophen 650 mg Q6HP PRN PO 02/25/24 22:00 Morphine Sulfate 2 mg Q4HPRN PRN IV 02/25/24 22:00 Hold Nitroglycerin 0.4 mg Q5MINP PRN SL 02/25/24 22:00 Morphine Sulfate 2 mg Q30M PRN IV 02/25/24 22:00 Hold Amiodarone HCl 200 mg BID PO 02/26/24 10:00 03/04/24 10:46 200 MG Metoprolol Succinate 50 mg DAILY PO 02/26/24 10:00 03/04/24 10:47 50 MG Levothyroxine Sodium 88 mcg DAILY PO 02/26/24 10:00 03/04/24 10:45 88 MCG Sertraline HCl 100 mg DAILY PO 02/26/24 10:00 03/04/24 10:46 100 MG Acetaminophen/ Hydrocodone Bitart 1 tab Q4HPRN PRN PO 02/26/24 08:15 03/03/24 21:55 1 TAB Sucralfate 1 gm QIDACHS PO 02/27/24 17:00 03/04/24 10:46 1 GM Trazodone HCl 50 mg HS PO 02/27/24 22:00 03/03/24 21:54 50 MG Pantoprazole Sodium 40 mg BID IV 02/27/24 22:00 03/04/24 10:43 40 MG Apixaban 5 mg BID PO 03/02/24 22:00 03/04/24 10:46 5 MG Fluconazole 100 ml @ 100 mls/hr DAILY IV 03/02/24 10:00 03/04/24 10:43 100 MLS/HR Nystatin 5 ml QID MT 03/02/24 18:00 03/04/24 06:05 5 ML Docusate Sodium 100 mg BID PO 03/03/24 22:00 03/04/24 10:45 100 MG Polyethylene Glycol 17 gm DAILYPRN PRN PO 03/03/24 11:45 03/03/24 14:29 17 GM Potassium Chloride 40 meq DAILY PO 03/04/24 10:00 03/04/24 10:44 40 MEQ Spironolactone 25 mg DAILY PO 03/04/24 10:00 03/04/24 10:51 25 MG Laboratory Results Laboratory Tests 03/04/24 05:21 Chemistry Test 03/04/24 05:21 Calcium Level 8.2 mg/dL (8.7-10.4) L Urinalysis Test 02/26/24 07:45 Urine Osmolality 334 mOsm/kg Urine Creatinine 129.61 mg/dL (30.0-125.0) H Urine Protein/Creatinine Ratio 0.35 Urine Sodium 72 mmol/L (40-220) Urine Total Protein 45.9 mg/dL (1-14) H LIAT CAICEDO MD Mar 04, 2024 13:53
--- NOTE | 2024-03-04 19:21 | DVHPN2 ---
Progress Note Date Seen: Mar 04, 2024 Medical Necessity Reason Pt with a Central, PICC or Fol: Yes The following are medically ne: Delgado Catheter Subjective Patient reports: No new complaints Objective vital signs Vital Sign Date Time Temp Pulse Resp B/P (MAP) Pulse Ox O2 Delivery O2 Flow Rate FiO2 03/04/24 17:00 98.3 70 18 150/56 (87) 96 98.3 03/04/24 08:00 Room Air* 0 21 Total Intake and Output 03/03/24 03/03/24 03/04/24 15:00 23:00 07:00 Intake Total 240 ml 700 ml Output Total 600 ml 650 ml Balance -360 ml 50 ml medications Current Medications Medications Dose Ordered Sig/Miranda Route Start Time Stop Time Status Last Admin Dose Admin Sodium Chloride 10 ml Q8HR IV 02/25/24 22:00 03/04/24 14:15 10 ML Ondansetron HCl 4 mg Q4HP PRN IV 02/25/24 22:00 02/27/24 10:37 4 MG Acetaminophen 650 mg Q6HP PRN PO 02/25/24 22:00 Morphine Sulfate 2 mg Q4HPRN PRN IV 02/25/24 22:00 Hold Nitroglycerin 0.4 mg Q5MINP PRN SL 02/25/24 22:00 Morphine Sulfate 2 mg Q30M PRN IV 02/25/24 22:00 Hold Amiodarone HCl 200 mg BID PO 02/26/24 10:00 03/04/24 10:46 200 MG Metoprolol Succinate 50 mg DAILY PO 02/26/24 10:00 03/04/24 10:47 50 MG Levothyroxine Sodium 88 mcg DAILY PO 02/26/24 10:00 03/04/24 10:45 88 MCG Sertraline HCl 100 mg DAILY PO 02/26/24 10:00 03/04/24 10:46 100 MG Acetaminophen/ Hydrocodone Bitart 1 tab Q4HPRN PRN PO 02/26/24 08:15 03/04/24 17:43 1 TAB Sucralfate 1 gm QIDACHS PO 02/27/24 17:00 03/04/24 17:14 1 GM Trazodone HCl 50 mg HS PO 02/27/24 22:00 03/03/24 21:54 50 MG Pantoprazole Sodium 40 mg BID IV 02/27/24 22:00 03/04/24 10:43 40 MG Apixaban 5 mg BID PO 03/02/24 22:00 03/04/24 10:46 5 MG Fluconazole 100 ml @ 100 mls/hr DAILY IV 03/02/24 10:00 03/04/24 10:43 100 MLS/HR Nystatin 5 ml QID MT 03/02/24 18:00 03/04/24 17:14 5 ML Docusate Sodium 100 mg BID PO 03/03/24 22:00 03/04/24 10:45 100 MG Polyethylene Glycol 17 gm DAILYPRN PRN PO 03/03/24 11:45 03/03/24 14:29 17 GM Potassium Chloride 40 meq DAILY PO 03/04/24 10:00 03/04/24 10:44 40 MEQ Spironolactone 25 mg DAILY PO 03/04/24 10:00 03/04/24 10:51 25 MG Examination: GENERAL:Normal, HEENT:Normal, NECK:Normal, LUNGS:Normal, CVS:Normal, ABDOMEN:Normal, MSK:Normal, SKIN:Normal, NEURO:Normal, :Normal laboratory and microbiology Laboratory Tests 03/04/24 05:21 Test 03/04/24 05:21 Range/Units Serum Glucose 83 74-106 mg/dL Problem List/Assessment/Plan Problem List/Assessment/Plan Acute kidney injury superimposed Chronic Kidney Disease secondary hemodynamic mediated Nephrolithiasis, nonobstructing Hypertension Hypokalemia Hypomagnesemia Dehydration History of breast cancer recs trial of spironolactone given hypokalemia and HTN stop triamterene -hctz home med on discharge check urine k,,renin marisa Plan discussed with: Patient My Orders My Orders Orders - ANDREW HERNANDEZ MD Procedure Category Date Status Time Spironolactone PHA 03/04/24 In Process (Aldactone) 10:00 Urine Potassium LAB 03/04/24 Transmitted 19:19 Dietary Evaluation Review Comments: 1) Continue to monitor pt PO intake to meet at least 75% of meals 2) Advance pt diet when medically feasible to a Cardiac diet 3) Continue current plan of care Expected Outcomes/Goals: 1) Pt appetite to improve 2) Pt diet to advance 3) F/U in 3-5 days ANDREW HERNANDEZ MD Mar 04, 2024 19:21
[2024-03-05] VITALS (8 sets, daily range): BP systolic 121–145; BP diastolic 44–59; PULSE 69–77; RESP 17–20; TEMP 98.1–98.8; O2SAT 95–97
[2024-03-05 06:54] LABS: Basophils # (auto) 0 10 ^3/uL (0-0.2); Basophils % (auto) 0.9 % (0.0-2.0); Eosinophils # (auto) 0.2 10 ^3/uL (0-0.8); Eosinophils % (auto) 3.1 % (0.0-7.0); Hematocrit 26.8 % (36.0-46.0); Lymphocytes # (auto) 1.4 10 ^3/uL (0.4-5.4); Lymphocytes % (auto) 27.4 % (10.0-50.0); Mean Corpuscular Hemoglobin 32.5 pg (28.0-32.0); Mean Corpuscular Hgb Conc. 33.7 g/dL (32.0-36.0); Mean Corpuscular Volume 96.4 fL (80.0-100.0); Monocytes # (auto) 0.3 10 ^3/uL (0-1.3); Monocytes % (auto) 5.5 % (0.0-12.0); Neutrophils # (auto) 3.2 10 ^3/uL (1.6-8.6); Neutrophils % (auto) 63.1 % (37.0-80.0); Nucleated Red Blood Cells % 0.1 %; Platelet Count (auto) 189 10^3/uL (140-450); Red Blood Cells 2.78 10^6/uL (4.0-5.20); Red Cell Distribution Width 15.1 % (11.8-14.3); White Blood Cell 5.1 10^3/uL (4.4-10.8)
[2024-03-05 07:14] LABS: Sodium 144 mmol/L (136-145)
[2024-03-05 07:15] LABS: Anion Gap 8 (5-15); Carbon Dioxide 23 mmol/L (20-31)
[2024-03-05 07:20] LABS: BUN/Creatinine Ratio 7.9 (10.0-20.0); Glucose 84 mg/dL (74-106)
[2024-03-05 07:36] LABS: Blood Urea Nitrogen 6 mg/dL (9-23); Calcium 8.4 mg/dL (8.7-10.4); Chloride 113 mmol/L (98-107); Potassium 3.4 mmol/L (3.5-5.1)
--- NOTE | 2024-03-05 08:25 | DVHPN2 ---
Objective Vitals Vital Signs Date Time Temp Pulse Resp B/P (MAP) Pulse Ox O2 Delivery O2 Flow Rate FiO2 03/05/24 05:00 98.5 70 18 136/48 (77) 95 98.5 03/04/24 20:00 Room Air* 0 21 Intake/Output Intake and Output 03/05/24 07:00 Intake Total 1900 ml Output Total 900 ml Balance 1000 ml Intake Oral 1800 ml IV Total 100 ml Output Urine Total 900 ml # Bowel Movements 4 General Appearance: Alert, Oriented X3, Cooperative, No acute distress, mild distress, moderate distress, severe distress, Other Lungs: Clear to auscultation, Normal air movement, Other Cardiovascular: Regular rate, Normal S1, Normal S2, No murmurs, Gallops, Rubs, Other Abdomen: Normal bowel sounds, Soft, No tenderness (+epigastric tenderness), No hepatospenomegaly, No masses, Other Medications Current Medications Medications Dose Ordered Sig/Miranda Route Start Time Stop Time Status Last Admin Dose Admin Sodium Chloride 10 ml Q8HR IV 02/25/24 22:00 03/05/24 06:08 10 ML Ondansetron HCl 4 mg Q4HP PRN IV 02/25/24 22:00 02/27/24 10:37 4 MG Acetaminophen 650 mg Q6HP PRN PO 02/25/24 22:00 Morphine Sulfate 2 mg Q4HPRN PRN IV 02/25/24 22:00 Hold Nitroglycerin 0.4 mg Q5MINP PRN SL 02/25/24 22:00 Morphine Sulfate 2 mg Q30M PRN IV 02/25/24 22:00 Hold Amiodarone HCl 200 mg BID PO 02/26/24 10:00 03/04/24 21:18 200 MG Metoprolol Succinate 50 mg DAILY PO 02/26/24 10:00 03/04/24 10:47 50 MG Levothyroxine Sodium 88 mcg DAILY PO 02/26/24 10:00 03/04/24 10:45 88 MCG Sertraline HCl 100 mg DAILY PO 02/26/24 10:00 03/04/24 10:46 100 MG Acetaminophen/ Hydrocodone Bitart 1 tab Q4HPRN PRN PO 02/26/24 08:15 03/04/24 23:01 1 TAB Sucralfate 1 gm QIDACHS PO 02/27/24 17:00 12/1/24 06:07 1 GM Trazodone HCl 50 mg HS PO 02/27/24 22:00 03/04/24 21:17 50 MG Pantoprazole Sodium 40 mg BID IV 02/27/24 22:00 03/04/24 21:18 40 MG Apixaban 5 mg BID PO 03/02/24 22:00 03/04/24 21:17 5 MG Fluconazole 100 ml @ 100 mls/hr DAILY IV 03/02/24 10:00 03/04/24 10:43 100 MLS/HR Nystatin 5 ml QID MT 03/02/24 18:00 03/05/24 06:08 5 ML Docusate Sodium 100 mg BID PO 03/03/24 22:00 03/04/24 10:45 100 MG Polyethylene Glycol 17 gm DAILYPRN PRN PO 03/03/24 11:45 03/03/24 14:29 17 GM Potassium Chloride 40 meq DAILY PO 03/04/24 10:00 03/04/24 10:44 40 MEQ Spironolactone 25 mg DAILY PO 03/04/24 10:00 03/04/24 10:51 25 MG Laboratory Results Laboratory Tests 03/05/24 06:06 Chemistry Test 03/05/24 06:06 Calcium Level 8.4 mg/dL (8.7-10.4) L Urinalysis Test 02/26/24 07:45 Urine Osmolality 334 mOsm/kg Urine Creatinine 129.61 mg/dL (30.0-125.0) H Urine Protein/Creatinine Ratio 0.35 Urine Sodium 72 mmol/L (40-220) Urine Total Protein 45.9 mg/dL (1-14) H Assessment/Plan My Orders Orders - LIAT CAICEDO MD Procedure Category Date Status Time * [employer] CONS 03/04/24 Transmitted Consult LIAT CAICEDO MD Mar 05, 2024 08:25
--- NOTE | 2024-03-05 17:51 | DVHPN2 ---
Progress Note Date Seen: Mar 05, 2024 Medical Necessity Reason Pt with a Central, PICC or Fol: Yes The following are medically ne: Delgado Catheter Subjective Patient reports: No new complaints Review of Systems: Deferred Objective vital signs Vital Sign Date Time Temp Pulse Resp B/P (MAP) Pulse Ox O2 Delivery O2 Flow Rate FiO2 03/05/24 17:27 98.8 69 17 138/50 (79) 97 98.8 03/05/24 08:00 Room Air* 0 21 Total Intake and Output 03/04/24 03/04/24 03/05/24 15:00 23:00 07:00 Intake Total 100 ml 950 ml 850 ml Output Total 700 ml 200 ml Balance 100 ml 250 ml 650 ml medications Current Medications Medications Dose Ordered Sig/Miranda Route Start Time Stop Time Status Last Admin Dose Admin Sodium Chloride 10 ml Q8HR IV 02/25/24 22:00 03/05/24 14:00 10 ML Ondansetron HCl 4 mg Q4HP PRN IV 02/25/24 22:00 02/27/24 10:37 4 MG Acetaminophen 650 mg Q6HP PRN PO 02/25/24 22:00 Morphine Sulfate 2 mg Q4HPRN PRN IV 02/25/24 22:00 Hold Nitroglycerin 0.4 mg Q5MINP PRN SL 02/25/24 22:00 Morphine Sulfate 2 mg Q30M PRN IV 02/25/24 22:00 Hold Amiodarone HCl 200 mg BID PO 02/26/24 10:00 03/05/24 10:19 200 MG Metoprolol Succinate 50 mg DAILY PO 02/26/24 10:00 03/05/24 11:43 50 MG Levothyroxine Sodium 88 mcg DAILY PO 02/26/24 10:00 03/05/24 10:19 88 MCG Sertraline HCl 100 mg DAILY PO 02/26/24 10:00 03/05/24 10:19 100 MG Acetaminophen/ Hydrocodone Bitart 1 tab Q4HPRN PRN PO 02/26/24 08:15 03/05/24 17:43 1 TAB Sucralfate 1 gm QIDACHS PO 02/27/24 17:00 03/05/24 17:42 1 GM Trazodone HCl 50 mg HS PO 02/27/24 22:00 03/04/24 21:17 50 MG Pantoprazole Sodium 40 mg BID IV 02/27/24 22:00 03/05/24 10:18 40 MG Apixaban 5 mg BID PO 03/02/24 22:00 03/05/24 10:20 5 MG Fluconazole 100 ml @ 100 mls/hr DAILY IV 03/02/24 10:00 03/05/24 10:20 100 MLS/HR Nystatin 5 ml QID MT 03/02/24 18:00 03/05/24 17:42 5 ML Docusate Sodium 100 mg BID PO 03/03/24 22:00 03/04/24 10:45 100 MG Polyethylene Glycol 17 gm DAILYPRN PRN PO 03/03/24 11:45 03/03/24 14:29 17 GM Potassium Chloride 40 meq DAILY PO 03/04/24 10:00 03/05/24 10:19 40 MEQ Spironolactone 25 mg DAILY PO 03/04/24 10:00 03/05/24 10:19 25 MG laboratory and microbiology Laboratory Tests 03/05/24 06:06 Test 03/05/24 06:06 Range/Units Serum Glucose 84 74-106 mg/dL Problem List/Assessment/Plan Problem List/Assessment/Plan Acute kidney injury superimposed Chronic Kidney Disease secondary hemodynamic mediated Nephrolithiasis, nonobstructing Hypertension Hypokalemia Hypomagnesemia Dehydration History of breast cancer recs trial of spironolactone given hypokalemia and HTN stop triamterene -hctz home med on discharge check urine k,,renin marisa level Plan discussed with: Patient My Orders My Orders Orders - ANDREW HERNANDEZ MD Procedure Category Date Status Time Urine Potassium LAB 03/04/24 Logged 19:19 Renin Activity And LAB 03/05/24 In Process Aldosterone 04:00 Dietary Evaluation Review Comments: 1) Continue to monitor pt PO intake to meet at least 75% of meals 2) Advance pt diet when medically feasible to a Cardiac diet 3) Continue current plan of care Expected Outcomes/Goals: 1) Pt appetite to improve 2) Pt diet to advance 3) F/U in 3-5 days ANDREW HERNANDEZ MD Mar 05, 2024 17:51
[2024-03-06 00:57] VITALS: BP 148/58; PULSE 78; RESP 18; TEMP 98.2; O2SAT 96
[2024-03-06 05:00] VITALS: BP 142/56; PULSE 71; RESP 18; TEMP 98; O2SAT 95
[2024-03-06 07:09] LABS: Anion Gap 7 (5-15); Carbon Dioxide 22 mmol/L (20-31); Potassium 3.8 mmol/L (3.5-5.1); Sodium 143 mmol/L (136-145)
[2024-03-06 07:15] LABS: Glucose 82 mg/dL (74-106)
[2024-03-06 07:23] LABS: Blood Urea Nitrogen < 5 mg/dL (9-23); Calcium 8.6 mg/dL (8.7-10.4); Chloride 114 mmol/L (98-107)
[2024-03-06 07:51] LABS: Basophils # (auto) 0 10 ^3/uL (0-0.2); Basophils % (auto) 0.8 % (0.0-2.0); Eosinophils # (auto) 0.2 10 ^3/uL (0-0.8); Eosinophils % (auto) 3.9 % (0.0-7.0); Hematocrit 33.5 % (36.0-46.0); Hemoglobin 10.2 g/dL (12.2-16.2); Lymphocytes # (auto) 1.6 10 ^3/uL (0.4-5.4); Lymphocytes % (auto) 28.5 % (10.0-50.0); Mean Corpuscular Hgb Conc. 30.5 g/dL (32.0-36.0); Mean Corpuscular Volume 108.4 fL (80.0-100.0); Monocytes # (auto) 0.3 10 ^3/uL (0-1.3); Monocytes % (auto) 5.3 % (0.0-12.0); Neutrophils # (auto) 3.5 10 ^3/uL (1.6-8.6); Neutrophils % (auto) 61.5 % (37.0-80.0); Nucleated Red Blood Cells % 0.1 %; Platelet Count (auto) 180 10^3/uL (140-450); Red Blood Cells 3.09 10^6/uL (4.0-5.20); Red Cell Distribution Width 16.8 % (11.8-14.3); White Blood Cell 5.7 10^3/uL (4.4-10.8)
[2024-03-06 08:00] VITALS: PULSE 70
[2024-03-06 09:00] VITALS: BP 138/58; PULSE 70; RESP 18; TEMP 98.4; O2SAT 96
--- NOTE | 2024-03-06 11:25 | DVHPN2 ---
Progress Note - Dictate Date Seen: Mar 06, 2024 Medical Necessity Reason Pt with a Central, PICC or Fol: Yes The following are medically ne: Delgado Catheter Subjective BP better vital signs Vital Sign Date Time Temp Pulse Resp B/P (MAP) Pulse Ox O2 Delivery O2 Flow Rate FiO2 03/06/24 10:37 70 138/58 03/06/24 09:00 98.4 18 96 98.4 03/05/24 20:00 Room Air* 0 21 Total Intake and Output 03/05/24 03/05/24 03/06/24 15:00 23:00 07:00 Intake Total 100 ml 1160 ml 200 ml Output Total 700 ml 350 ml Balance 100 ml 460 ml -150 ml medications Current Medications Medications Dose Ordered Sig/Miranda Route Start Time Stop Time Status Last Admin Dose Admin Sodium Chloride 10 ml Q8HR IV 02/25/24 22:00 03/06/24 06:13 10 ML Ondansetron HCl 4 mg Q4HP PRN IV 02/25/24 22:00 02/27/24 10:37 4 MG Acetaminophen 650 mg Q6HP PRN PO 02/25/24 22:00 Morphine Sulfate 2 mg Q4HPRN PRN IV 02/25/24 22:00 Hold Nitroglycerin 0.4 mg Q5MINP PRN SL 02/25/24 22:00 Morphine Sulfate 2 mg Q30M PRN IV 02/25/24 22:00 Hold Amiodarone HCl 200 mg BID PO 02/26/24 10:00 03/06/24 10:33 200 MG Metoprolol Succinate 50 mg DAILY PO 02/26/24 10:00 03/06/24 10:37 50 MG Levothyroxine Sodium 88 mcg DAILY PO 02/26/24 10:00 03/06/24 10:35 88 MCG Sertraline HCl 100 mg DAILY PO 02/26/24 10:00 03/06/24 10:34 100 MG Sucralfate 1 gm QIDACHS PO 02/27/24 17:00 03/06/24 10:34 1 GM Trazodone HCl 50 mg HS PO 02/27/24 22:00 03/05/24 21:53 50 MG Pantoprazole Sodium 40 mg BID IV 02/27/24 22:00 03/06/24 10:31 40 MG Apixaban 5 mg BID PO 03/02/24 22:00 03/06/24 10:35 5 MG Fluconazole 100 ml @ 100 mls/hr DAILY IV 03/02/24 10:00 03/06/24 10:31 100 MLS/HR Nystatin 5 ml QID MT 03/02/24 18:00 03/06/24 06:13 5 ML Docusate Sodium 100 mg BID PO 03/03/24 22:00 03/06/24 10:36 100 MG Polyethylene Glycol 17 gm DAILYPRN PRN PO 03/03/24 11:45 03/03/24 14:29 17 GM Potassium Chloride 40 meq DAILY PO 03/04/24 10:00 03/06/24 10:33 40 MEQ Spironolactone 25 mg DAILY PO 03/04/24 10:00 03/06/24 10:33 25 MG laboratory and microbiology Laboratory Tests 03/06/24 06:06 Test 03/06/24 06:06 Range/Units Serum Glucose 82 74-106 mg/dL Assessment/Plan Acute kidney injury superimposed Chronic Kidney Disease secondary hemodynamic mediated Nephrolithiasis, nonobstructing Hypertension Hypokalemia Hypomagnesemia Dehydration History of breast cancer trial of spironolactone given hypokalemia and HTN tolerated well . stop triamterene -hctz home med on discharge check urine k,,renin marisa level no new recs at this time Dietary Evaluation Review Comments: 1) Continue to monitor pt PO intake to meet at least 75% of meals 2) Advance pt diet when medically feasible to a Cardiac diet 3) Continue current plan of care Expected Outcomes/Goals: 1) Pt appetite to improve 2) Pt diet to advance 3) F/U in 3-5 days Plan discussed with: Patient CANDIDO PEÑA MD Mar 06, 2024 11:25
[2024-03-06 12:30] VITALS: BP 143/44; PULSE 70; RESP 18; TEMP 98.7; O2SAT 96
[2024-03-06] MEDS ORDERED: PANT40T PO (13:15)
[2024-03-06] MEDS ORDERED: SUCR1TAB PO (13:15)
[2024-03-06] MEDS ORDERED: NYS5LQ MT (13:15)
[2024-03-06] MEDS ORDERED: FLUC200T PO (13:15)
--- NOTE | 2024-03-06 13:19 | DVHDS2 ---
Discharge Summary Date of Admission Feb 25, 2024 at 21:59 Date of Discharge: Mar 06, 2024 Admitting Diagnosis CANDIDAL ESOPHAGITIS Labs/Diagnostic Data: Laboratory Results Test 03/06/24 06:06 03/05/24 06:06 03/03/24 06:09 03/02/24 05:52 White Blood Count 5.7 10^3/uL (4.4-10.8) Red Blood Count 3.09 10^6/uL (4.0-5.20) Hemoglobin 10.2 g/dL (12.2-16.2) Hematocrit 33.5 % (36.0-46.0) Mean Corpuscular Volume 108.4 fL (80.0-100.0) Mean Corpuscular Hemoglobin 33.0 pg (28.0-32.0) Mean Corpuscular Hemoglobin Concent 30.5 g/dL (32.0-36.0) Red Cell Distribution Width 16.8 % (11.8-14.3) Platelet Count 180 10^3/uL (140-450) Mean Platelet Volume 7.7 fL (6.9-10.8) Neutrophils (%) (Auto) 61.5 % (37.0-80.0) Lymphocytes (%) (Auto) 28.5 % (10.0-50.0) Monocytes (%) (Auto) 5.3 % (0.0-12.0) Eosinophils (%) (Auto) 3.9 % (0.0-7.0) Basophils (%) (Auto) 0.8 % (0.0-2.0) Neutrophils # (Auto) 3.5 10 ^3/uL (1.6-8.6) Lymphocytes # (Auto) 1.6 10 ^3/uL (0.4-5.4) Monocytes # (Auto) 0.3 10 ^3/uL (0-1.3) Eosinophils # (Auto) 0.2 10 ^3/uL (0-0.8) Basophils # (Auto) 0 10 ^3/uL (0-0.2) Nucleated Red Blood Cells 0.1 % Sodium Level 143 mmol/L (136-145) Potassium Level 3.8 mmol/L (3.5-5.1) Chloride Level 114 mmol/L (98-107) Carbon Dioxide Level 22 mmol/L (20-31) Anion Gap 7 (5-15) Blood Urea Nitrogen < 5 mg/dL (9-23) Creatinine 0.84 mg/dL (0.550-1.02) Glomerular Filtration Rate Calc 73 mL/min (>90) BUN/Creatinine Ratio 6.0 (10.0-20.0) Serum Glucose 82 mg/dL (74-106) Calcium Level 8.6 mg/dL (8.7-10.4) Magnesium Level 1.4 mg/dL (1.6-2.6) Total Bilirubin 0.3 mg/dL (0.2-1.0) Aspartate Amino Transferase (AST) 22 U/L (13-40) Alanine Aminotransferase (ALT) 30 U/L (7-40) Alkaline Phosphatase 89 U/L (46-116) Total Protein 5.0 g/dL (5.7-8.2) Albumin 3.0 g/dL (3.2-4.8) Test 03/01/24 13:49 02/27/24 06:16 02/26/24 08:01 02/26/24 07:45 Prothrombin Time 11.5 sec (9.3-11.8) Prothrombin Time INR 1.09 (0.9-1.15) Phosphorus Level 3.3 mg/dL (2.4-5.1) Direct Bilirubin 0.2 mg/dL (<0.3) B-Type Natriuretic Peptide 38.05 pg/mL (0-100) Thyroid Stimulating Hormone (TSH) 3.13 uIU/mL (0.55-4.78) Urine Osmolality 334 mOsm/kg Urine Creatinine 129.61 mg/dL (30.0-125.0) Urine Protein/Creatinine Ratio 0.35 Urine Sodium 72 mmol/L (40-220) Urine Total Protein 45.9 mg/dL (1-14) Test 02/25/24 18:03 02/25/24 14:56 Troponin I High Sensitivity 48 ng/L (</=34) Lactic Acid Level 1.4 mmol/L (0.4-2.0) Lipase 33 U/L (12-53) Other Laboratory Tests 03/06/24 06:06 Brief Hx & Hospital Course: The patient is a 73-year-old female with a past medical history significant for hypertension atrial fibrillation, history of carcinoma of the breast history of kidney stone who was admitted with abdominal pain. Patient has epigastric abdominal pain that does not radiate. It starts half an hour after eating. She is not in eating significantly. She denies any chest pain or shortness of breath. Patient has a history of abdominal pain and esophageal candidiasis. Patient was scoped several months ago by Dr. [place]. She denies any melena or hematochezia. Patient was noted to have fatty liver disease on imaging tests. She denies any dysphagia or odynophagia. She is unsure if she took any medication for Viridiana. Patient also had renal failure, underwent EGD, see report below. Patient will need to continue Protonix Carafate and Diflucan for recurrent candidal esophagitis along with nystatin swish and swallow. Patient will be discharged home to follow up with outpatient GI clinic. Patient also needs to see primary care Dr for repeat blood work in 3-5 days. I spoke with the patient's spouse at bedside explained plan of planning discharge plan. Patient will be discharged home today. Operations or Procedures PROCEDURE PERFORMED BY: Griffin Workman MD REFERRING PROVIDER: Dr. Elder PROCEDURE PERFORMED: 1. Esophagogastroduodenoscopy with biopsy with moderate sedation PRE-PROCEDURE DIAGNOSIS: 1. Anemia 2. Epigastric abdominal pain POSTPROCEDURE DIAGNOSIS: 1. CANDIDAL ESOPHAGITIS 2. MILD GASTRITIS MEDICATIONS USED: 3mg IV Versed, 50 mcg of Fentanyl IV DETAILS OF THE PROCEDURE: Informed consent was obtained after risks benefits and alternatives were discussed at length with patient patient gave consent to the procedure as well as medication used for sedation. The patient was placed in left lateral decubitus position. An Olympus variable endoscope was inserted into the oropharynx advanced into the esophagus, then into the stomach, then into the duodenal bulb and duodenum. The scope was then withdrawn. The mucosa was carefully evaluated. The duodenum was normal to the 3rd portion. The stomach showed gastritis, biopsies were taken the body and antrum and sent for H pylori as well as pathology. Retroflexion showed no abnormalities. The scope was withdrawn. The esophagus showed candidal esophagitis with the Z-line at 39 cm. The scope was then withdrawn and the procedure completed. The patient tolerated the procedure well. IMPRESSION: 1. Candidal esophagitis 2. Mild gastritis Patient's symptoms may be secondary to candidal esophagitis versus other. Patient states that her symptoms have been improving. RECOMMENDATIONS: 1. Follow up in GI Clinic for procedure and pathology results 2. Anti-reflux precautions 3. Patient should be on a proton pump inhibitor 30 minutes before breakfast daily and/or Carafate if it helps with her symptoms 4. Consider further workup for the patient's symptoms that they persist or worsen 5. Patient should be on Diflucan 100 mg daily 6. Avoid caffeine, spicy food, alcohol, chocolate, tomatoes, citrus, late night eating. 7. May restart anticoagulation in 24 hours 8. Consider further workup for anemia, caution with anticoagulation I WOULD LIKE TO THANK DR. ELDER FOR THIS REFERRAL Condition at Discharge: Poor Final Diagnosis/Problems List CANDIDAL ESOPHAGITIS CAROLYN DUE TO VMN Discharge Disposition: Home Discharge Instruct/Medications Diet: See Comment Diet comment: SOFT DIET Activity: Light activity Follow Up/Referral: [facility] IN 14 DAYS Medications: SEE [facility] Discharge Statement: "Patient was advised to return to the ER or call 911 if any headaches, dizziness, shortness of breath, chest pain, abdominal pain, bleeding, fevers, or worsening of medical condition. Patient was counseled about treatment plan, medications, possible side effects, patientverbalized understanding. All questions were answered to the best of my ability. This discharge took greater then 30 minutes in planning, reviewing documentation, counseling the patient, and discussing with other team members." ASSESSMENT ASSESSMENT Assessment Date of Service: Mar 06, 2024 Billing Provider: BRENNAN ELDER MD Common Visit Codes: 18947-SKU/OBS DISCH DAY >30min BRENNAN ELDER MD Mar 06, 2024 13:18
[2024-03-06 13:45] VITALS: BP 143/44; PULSE 70; RESP 18; TEMP 98.7; O2SAT 96
== END 2024-03-06 17:30 | disposition home or self-care (01) | DRG 368 ==
LOC: ER 12:35 → TELE 21:59 → TELE-CENTR 22:05
PROVIDERS: ADMIT Internal Medicine; ATTEND Internal Medicine
PROC: 0DB78ZX Excision of Stomach, Pylorus, Via Natural or Artificial Opening Endoscopic, Diagnostic (ICD-10-PCS; 2024-03-02)
PROC: 05H933Z Insertion of Infusion Device into Right Brachial Vein, Percutaneous Approach (ICD-10-PCS; principal; 2024-03-06)
PROC: B54MZZA Ultrasonography of Right Upper Extremity Veins, Guidance (ICD-10-PCS; 2024-03-06)
DX: B37.81 Candidal esophagitis (principal); I21.A1 Myocardial infarction type 2; N17.0 Acute kidney failure with tubular necrosis; I69.354 Hemiplegia and hemiparesis following cerebral infarction affecting left non-dominant side; K29.00 Acute gastritis without bleeding; E86.0 Dehydration; E87.6 Hypokalemia; I48.91 Unspecified atrial fibrillation; I12.9 Hypertensive chronic kidney disease with stage 1 through stage 4 chronic kidney disease, or unspecified chronic kidney disease; N18.2 Chronic kidney disease, stage 2 (mild); E03.9 Hypothyroidism, unspecified; K76.0 Fatty (change of) liver, not elsewhere classified; N20.0 Calculus of kidney; D64.9 Anemia, unspecified; E83.42 Hypomagnesemia; D25.9 Leiomyoma of uterus, unspecified; Z82.49 Family history of ischemic heart disease and other diseases of the circulatory system; Z85.3 Personal history of malignant neoplasm of breast; Z90.49 Acquired absence of other specified parts of digestive tract; Z90.13 Acquired absence of bilateral breasts and nipples; Z88.5 Allergy status to narcotic agent; Z88.1 Allergy status to other antibiotic agents; Z83.3 Family history of diabetes mellitus; Z79.899 Other long term (current) drug therapy
CPT/HCPCS: 36415; 43239; 71045; 74176; 76700; 80048; 80053; 80076; 82088; 82570; 83605; 83690; 83735; 83880; 83935; 84100; 84156; 84244; 84300; 84443; 84484; 85025; 85610; 92610; 93005; 99291; G0378; J1450; J2003; J2250; J2405; J2470; J3480

== ENCOUNTER → 2024-07-11 | Outpatient (CLI) | payer OTHER ==
[~2024-07-11] MED LIST changes: -CIPR-173 PO; +FLUC200T PO; -HYDR-4902 PO; -SUCR1SUS26 PO
[2024-07-11 11:02] LABS: Basophils # (auto) 0.1 10 ^3/uL (0-0.2); Basophils % (auto) 2.1 % (0.0-2.0); Lymphocytes # (auto) 1.5 10 ^3/uL (0.4-5.4); Monocytes # (auto) 0.2 10 ^3/uL (0-1.3); Nucleated Red Blood Cells % 0.2 %
[2024-07-11 11:04] LABS: Eosinophils # (auto) 0.2 10 ^3/uL (0-0.8); Eosinophils % (auto) 3.5 % (0.0-7.0); Hematocrit 32.2 % (36.0-46.0); Lymphocytes % (auto) 33.1 % (10.0-50.0); Mean Corpuscular Hemoglobin 35.9 pg (28.0-32.0); Mean Corpuscular Hgb Conc. 34.1 g/dL (32.0-36.0); Mean Corpuscular Volume 105.2 fL (80.0-100.0); Monocytes % (auto) 3.9 % (0.0-12.0); Neutrophils # (auto) 2.6 10 ^3/uL (1.6-8.6); Neutrophils % (auto) 57.4 % (37.0-80.0); Platelet Count (auto) 275 10^3/uL (140-450); Red Blood Cells 3.06 10^6/uL (4.0-5.20); White Blood Cell 4.5 10^3/uL (4.4-10.8)
[2024-07-11 11:16] LABS: % Iron Saturation 80.5 % (15-50); Albumin 3.3 g/dL (3.2-4.8); Alkaline Phosphatase 102 U/L (46-116); Anion Gap 10 (5-15); BUN/Creatinine Ratio 10.3 (10.0-20.0); Calcium 8.7 mg/dL (8.7-10.4); Carbon Dioxide 26 mmol/L (20-31); Chloride 104 mmol/L (98-107); Glucose 90 mg/dL (74-106); LDL Cholesterol 71 mg/dL (< 100); Magnesium 1.8 mg/dL (1.6-2.6); Sodium 140 mmol/L (136-145); Triglycerides 123 mg/dL (< 150)
[2024-07-11 11:17] LABS: Bilirubin, Total 1.1 mg/dL (0.2-1.0); Cholesterol 128 mg/dL (< 200)
[2024-07-11 11:32] LABS: Alanine Aminotransferase 76 U/L (7-40); Aspartate Aminotransferase 119 U/L (13-40); Blood Urea Nitrogen 8 mg/dL (9-23); HDL Cholesterol 31 mg/dL (40-59); Total Protein 5.7 g/dL (5.7-8.2)
[2024-07-11 11:35] LABS: Potassium 2.1 mmol/L (3.5-5.1)
[2024-07-11 11:41] LABS: Folate (Folic Acid) 0.97 ng/mL (>5.38)
[2024-07-11 11:43] LABS: Free T4 (Free Thyroxine) 1.64 ng/dL (0.89-1.76)
[2024-07-11 11:47] LABS: T3 Total 0.89 ng/mL (0.60-1.81)
[2024-07-11 11:51] LABS: Uric Acid 2.8 mg/dL (3.1-7.8)
[2024-07-11 12:20] LABS: Free T3 1.4 pg/mL (2.3-4.2)
== END | disposition home or self-care (01) ==
LOC: LAB 10:05
PROVIDERS: ATTEND Family Medicine
DX: I12.9 Hypertensive chronic kidney disease with stage 1 through stage 4 chronic kidney disease, or unspecified chronic kidney disease (principal); N18.31 Chronic kidney disease, stage 3a; N39.0 Urinary tract infection, site not specified; R79.81 Abnormal blood-gas level
CPT/HCPCS: 36415; 80053; 80061; 82607; 82746; 83036; 83540; 83550; 83735; 84403; 84439; 84480; 84481; 84550; 85025

== ENCOUNTER 2024-07-13 12:22 | Inpatient (IN) | payer OTHER ==
[~2024-07-13] VITALS: Ht 154.9 cm; Wt 77.4 kg
[2024-07-13 13:00] VITALS: PULSE 82; RESP 11; O2SAT 96
[2024-07-13 13:25] LABS: Chloride 104 mmol/L (98-107); Sodium 141 mmol/L (136-145)
[2024-07-13 13:26] LABS: Anion Gap 11 (5-15); Carbon Dioxide 26 mmol/L (20-31)
--- NOTE | 2024-07-13 13:27 | ED.PDOC ---
History of Present Illness HPI Comments 73 y/o F is BIBA for abnormal lab findings, today. Patient reports attending her urology appointment with her urologist, Dr. Pipo Barron, this morning, when she received a called from her PCP advising her to go to her nearest emergency department, due to her most recent lab blood work yielding a low potassium (K+) level of 2.1. Patient, otherwise, reports being asymptomatic, with only notable history of R[place], CAROLYN, breast cancer, CVA, HTN, nephrolithiasis, and candidal esophagitis. Chief Complaint: Abnormal LAB's Time Seen by MD: 12:50 Primary Care Provider: ANGEL Reviewed Notes: Nurses Notes, Senior Quality Analyst Notes, Medications, Allergies Allergies: Coded Allergies: Cephalexin (Verified Allergy, Unknown, 05/24/23) Morphine (Verified Allergy, Unknown, 02/25/24) Home Meds Active Scripts Fluconazole (Diflucan) 200 Mg Tab, 200 MG PO BID for 10 Days, #20 TAB Prov:BRENNAN DARBY MD 03/06/24 Sucralfate (Sucralfate) 1 Gm Tab, 1 GM PO QIDACHS for 30 Days, #120 TAB Prov:BRENNAN DARBY MD 03/06/24 Nystatin (Mouth-Throat) (Mycostatin (Mouth-Throat)) 500,000 Units/5 Ml Ss, 5 ML MT QID for 30 Days, #120 ML Prov:BRENNAN DARBY MD 03/06/24 Pantoprazole Sodium Sesquihydr (Pantoprazole Sodium) 40 Mg Tab, 40 MG PO BID for 30 Days, #60 TAB Prov:BRENNAN DARBY MD 03/06/24 Levothyroxine Sodium (Levothyroxine Sodium) 75 Mcg Tab, 88 MCG PO DAILY for 30 Days, #36 TAB 2 Refills Prov:NIC GUY MD 09/18/23 Reported Medications Potassium Chloride (Potassium Chloride ER) 10 Meq Tab, 1 TAB PO DAILY for 90 Days, #90 02/29/24 Hydrochlorothiazide W/Triamter (Triamterene/Hydrochloroth) 1 Cap Cap, 1 CAP PO DAILY for 30 Days, #30 [TRIAMT/HCTZ 37.5/25] 02/29/24 Apixaban Base (ELIQUIS) 5 Mg Tab, 1 TAB PO BID for 30 Days, #60 02/29/24 Trazodone Hcl (Trazodone Hcl) 50 Mg Tab, 0.5 TAB PO HS PRN for 30 Days, #15 02/29/24 Sucralfate (Sucralfate) 1 Gm Tab, 1 TAB PO BID for 30 Days, #60 02/29/24 Amlodipine Besylate (Amlodipine Besylate) 10 Mg Tab, 1 TAB PO DAILY for 30 Days, #30 12/24/23 Amiodarone HCl (Amiodarone HCl) 200 Mg Tab, 1 TAB PO BID 12/24/23 Losartan Potassium (Losartan Potassium) 50 Mg Tab, 1 TAB PO DAILY for 90 Days, #90 12/24/23 Atorvastatin Calcium (ATORVASTATIN CALCIUM) 40 Mg Tab, 1 TAB PO DAILY for 90 Days, #90 12/24/23 Metoprolol Succinate (Metoprolol Succinate Er) 50 Mg Tab, 1 TAB PO DAILY 12/24/23 Sertraline Hcl (Sertraline Hcl) 100 Mg Tab, 1 TAB PO DAILY 12/24/23 Furosemide (Furosemide) 40 Mg Tab, 1 TAB PO DAILY for 30 Days, #30 12/24/23 Information Source: Patient, Emergency Med Personnel Mode of Arrival: EMS Severity: Moderate Timing: Hours Duration: Since onset Prehospital treatment: 12 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, 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 Past Medical History PAST MEDICAL HISTORY: AFIB, Cancer (breast cancer ), CVA, HTN, Kidney Stones Past Medical History (Other): CAROLYN cannididal esophagitis Surgical History: Cholecystectomy, Tonsillectomy 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 SHEET METAL DUCT INSTALLER History Family History Family History: Family hx of Cancer Social History Smoker: Non-Smoker Alcohol: Denies ETOH Use Drugs: Denies Drug Use Lives In: Home All Other Systems: Reviewed and Negative (Comprehensive systems review obtained and negative except for what is stated in the HPI.) Physical Exam General Appearance: Moderate Distress HEENT: Normal ENT Inspection, Pharynx Normal, TMs Normal Neck: Full Range of Motion, Non-Tender, Normal, Normal Inspection Respiratory: Chest Non-Tender, Lungs Clear, No Accessory Muscle Use, No Res piratory Distress, Normal Breath Sounds Cardiovascular: No Edema, No JVD, No Murmur, No Gallop, Normal Peripheral Pulses, Regular Rate/Rhythm Breast Exam: Deferred Gastrointestinal: No Organomegaly, Non Tender, No Pulsatile Mass, Normal Bowel Sounds, Soft Genitalia: Deferred Pelvic: Deferred Rectal: Deferred Extremities: No calf tenderness, No pedal edema Musculoskeletal : Apperance: Normal Neurologic: Alert, Motor Weakness, No Sensory Deficits Cerebellar Function: NOT DONE Reflexes: NOT DONE Skin: Pallor Peripheral Pulses: 3+ Radial (R), 3+ Radial (L) Lymphatic: No Adenopathy Was a procedure done? Was a procedure done?: No Differential Dx Considerations may include: hypokalemia, electrolyte imbalance, among others X-Ray, Labs, Meds, VS Vital Signs Date Time Temp Pulse Resp B/P (MAP) Pulse Ox O2 Delivery O2 Flow Rate FiO2 07/13/24 14:20 71 07/13/24 13:22 97.8 70 16 129/71 (90) 96 97.8 07/13/24 13:05 97.7 70 12 129/71 (90) 96 97.7 07/13/24 13:00 82 11 96 Room Air* 0 21 Lab Test 07/13/24 13:06 Range/Units Sodium Level 141 136-145 mmol/L Potassium Level 2.3 *L 3.5-5.1 mmol/L Chloride Level 104 98-107 mmol/L Carbon Dioxide Level 26 20-31 mmol/L Anion Gap 11 5-15 Blood Urea Nitrogen 9 9-23 mg/dL Creatinine 0.71 0.550-1.02 mg/dL Glomerular Filtration Rate Calc 90 >90 mL/min BUN/Creatinine Ratio 12.7 10.0-20.0 Serum Glucose 80 74-106 mg/dL Calcium Level 8.5 L 8.7-10.4 mg/dL Current Medications Medications (Trade) Dose Ordered Sig/Miranda Route Start Time Stop Time Status Last Admin Potassium Chloride 50 ml @ 25 mls/hr Q2H IV 07/13/24 14:00 07/13/24 17:59 07/13/24 14:00 Sodium Chloride 100 ml @ 50 mls/hr Q2HR IV 07/13/24 14:00 07/13/24 17:59 07/13/24 14:02 Patient alert. Answering questions. Was referred from outside physician office. Vitals stable. She has been bed ridden ever since her stroke several years ago. Potassium is low. Was given potassium. Establish intravenous access. Was given fluids. EKG reviewed does show potassium changes. Reviewed her history. Explained to the family. Continue cardiac monitoring. Time of 1ST Reevaluation: 13:20 Reevaluation 1ST: Unchanged Patient Education/Counseling: Diagnosis, Treatment Family Education/Counseling: No Family Present Additional Information Previous medical encounters reviewed: February 25, 2024 encounter for epigastric abdominal pain The following tests were ordered, and results were reviewed by me: CLIFF ISABEL Additional Information was gathered from interviewing the following independent historians: EMS I reviewed and agreed with the following test results read by other providers: N/A I discussed treatment and results with medical personnel and: Patient Departure 1 Departure Time of Disposition: 15:10 Impression: Primary Impression: Hypokalemia Disposition: ADMITTED INPATIENT Admit to: Med Surg Condition: Guarded Critical Care Note Critical Care Time?: Yes (90 min-critical care time only) Critical care comment: Replenish potassium Stability Stability form required: No Heart Score Heart Score: Heart Score Response (Comments) Value History Slightly Suspicious 0 EKG Normal 0 Age >65 2 Risk Factors >3 or Hx ASHD 2 Troponin Normal limit 0 Total 4 I personally scribed for RAMSEY CAR MD ([email or web address]) on 07/13/24 at 13:27. Electronically submitted by Nate Bhandari [email or web address]). RAMSEY CAR MD Jul 13, 2024 13:27
[2024-07-13 13:32] LABS: BUN/Creatinine Ratio 12.7 (10.0-20.0); Blood Urea Nitrogen 9 mg/dL (9-23); Glucose 80 mg/dL (74-106)
[2024-07-13 13:33] LABS: Calcium 8.5 mg/dL (8.7-10.4); Potassium 2.3 mmol/L (3.5-5.1)
[2024-07-13] MEDS ORDERED: POTASSIUM CHL 20MEQ/100ML 100 ML IV SCH (13:45)
[2024-07-13] MEDS: POTASSIUM CHL 20MEQ/50ML 50 ML IV SCH (14:00)
[2024-07-13] MEDS: SODIUM CHL 0.9% 100 ML IV SCH (14:02)
--- NOTE | 2024-07-13 18:43 | ECG ---
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
[2024-07-13 20:40] LABS: Urine Bacteria MOD /hpf (None Seen); Urine Blood 1+ /uL (Negative); Urine Clarity Ex.Turbid (Clear); Urine Color Light-Orange (Yellow); Urine Mucus FEW (None Seen); Urine Protein, UAD 1+ (Negative); Urine Specific Gravity 1.018 (1.001-1.035); Urine Squamous Epithelial Cell FEW /hpf (<5); Urine Urobilinogen 3 mg/dL (Negative); Urine WBC 501 /HPF (0-5); Urine WBC Clumps PRESENT /hpf (None Seen)
--- NOTE | 2024-07-13 21:30 | DVHHP2 ---
History of Present Illness Reason for Visit: Abnormal lab results History of Present Illness 73-year-old female presents for evaluation of abnormal lab results. Patient was contacted by her urologist today and was advised to present to the emergency department due to abnormal low potassium level of 2.1. Patient denies muscle cramps, palpitations, chest pain, shortness for breath. Electrolyte replacement was initiated by emergency department. Past Medical History CVA, hypertension, CHF, cancer, AFib Past Surgical History Tonsillectomy, cholecystectomy Family History Cancer Smoke: No ALCOHOL: none Drugs: None Lives: with Family Review of Systems Review of Systems Review of systems are currently negative otherwise addressed in HPI. Allergies: Coded Allergies: Cephalexin (Verified Allergy, Unknown, 05/24/23) Morphine (Verified Allergy, Unknown, 02/25/24) Medications Current Medications Medications Dose Ordered Sig/Miranda Route Start Time Stop Time Status Last Admin Dose Admin Atorvastatin Calcium 40 mg HS PO 07/13/24 22:00 Apixaban 5 mg BID PO 07/13/24 22:00 Amiodarone HCl 200 mg Q12HR PO 07/13/24 22:00 Furosemide 40 mg DAILY PO 07/14/24 10:00 Levothyroxine Sodium 88 mcg QAM@0600 PO 07/14/24 06:00 Losartan Potassium 50 mg DAILY PO 07/14/24 10:00 Metoprolol Succinate 25 mg DAILY PO 07/14/24 10:00 Sertraline HCl 100 mg DAILY PO 07/14/24 10:00 Ondansetron HCl 4 mg Q4HP PRN IV 07/13/24 19:45 Acetaminophen 650 mg Q6HP PRN PO 07/13/24 19:45 Exam Vital Signs Vital Signs Date Time Temp Pulse Resp B/P (MAP) Pulse Ox O2 Delivery O2 Flow Rate FiO2 07/13/24 19:50 97.0 70 10 113/74 (87) 97 97.0 07/13/24 13:00 Room Air* 0 21 Exam Gen: 73-year-old female in no apparent distress. Skin: Warm, dry, normal color and texture, no rash. HEENT: Normocephalic atraumatic, mucous membranes moist and pink. Neck: Cervical and supraclavicular nodes normal without enlargement, trachea is midline, thyroid gland is normal without masses. Pulmonary: Clear to auscultation and percussion bilaterally. Cardiac: Regular rate and rhythm. No murmur Abdomen: Soft, nontender, nondistended, bowel sounds present all 4 quadrants, no guarding, no rigidity, no organomegaly. Extremities: No cyanosis, clubbing, no edema Neuro: Cranial nerves II through XII grossly intact, normal affect and speech, no focal motor deficits. Labs/Xrays Labs Test 07/13/24 20:04 07/13/24 14:00 07/13/24 13:06 Range/Units Potassium Level 2.9 L 3.5-5.1 mmol/L Urine Color Light-orange Yellow Urine Clarity Ex.turbid Clear Urine pH 6.0 5.0-9.0 Urine Specific [place] 1.018 1.001-1.035 Urine Protein 1+ H Negative Urine Ketones 1+ H Negative Urine Blood 1+ H Negative /uL Urine Nitrite Negative Negative Urine Bilirubin Negative Negative Urine Urobilinogen 3 H Negative mg/dL Urine Leukocyte Esterase 3+ Negative /uL Urine RBC 6 0 - 4 /hpf Urine WBC Clumps Present None Seen /hpf Urine Microscopic WBC 501 H 0-5 /HPF Urine Squamous Epithelial Cells Few <5 /hpf Urine Bacteria Mod H None Seen /hpf Urine Mucus Few None Seen Urine Glucose Normal Normal mg/dL Sodium Level 141 136-145 mmol/L Chloride Level 104 98-107 mmol/L Carbon Dioxide Level 26 20-31 mmol/L Anion Gap 11 5-15 Blood Urea Nitrogen 9 9-23 mg/dL Creatinine 0.71 0.550-1.02 mg/dL Glomerular Filtration Rate Calc 90 >90 mL/min BUN/Creatinine Ratio 12.7 10.0-20.0 Serum Glucose 80 74-106 mg/dL Calcium Level 8.5 L 8.7-10.4 mg/dL Assessment/Plan Assessment/Plan Assessment Hypokalemia Hypertension History of AFib with secondary coagulopathy Plan Admit the patient [place] [facility] [place] Finish replete electrolytes and recheck with a.m. labs Resume home medications Continue treatment per orders. Plan discussed with: Patient My Orders Orders - HEIDY BELLE AGACNP Procedure Category Date Status Time Basic Metabolic Panel LAB 07/14/24 Verified 04:00 Atorvastatin (Lipitor) PHA 07/13/24 In Process 22:00 Apixaban (Eliquis) PHA 07/13/24 In Process 22:00 Amiodarone Tablet PHA 07/13/24 In Process (Cordarone Tablet) 22:00 Furosemide Tablet PHA 07/14/24 In Process (Lasix Tablet) 10:00 Levothyroxine Tablet PHA 07/14/24 In Process (Synthroid Tablet) 06:00 Losartan Tablet PHA 07/14/24 In Process (Cozaar Tablet) 10:00 Metoprolol Xl PHA 07/14/24 In Process Succinate (Toprol Xl) 10:00 Sertraline Hcl PHA 07/14/24 In Process (Zoloft) 10:00 Admit ADMIT 07/13/24 Transmitted 19:37 Ondansetron Hcl PHA 07/13/24 In Process (Zofran) 19:45 Cardiac DIET 07/14/24 Transmitted Diet-2gna,Lofat,Lochol Breakfast Condition: Stable TARI 07/13/24 In Process 19:37 Acetaminophen Tablet PHA 07/13/24 In Process (Tylenol Tablet) 19:45 Bedrest With Bathroom TARI 07/13/24 In Process Privileg 19:37 Potassium Er Tablet PHA 07/13/24 Transmitted (Klor-Con Tablet) 21:30 Date of Service: Jul 13, 2024 Billing Provider: HEIDY BELLE Common Visit Codes: [id number] INP/OBS CARE (MOD) HEIDY BELLE Jul 13, 2024 21:30
[2024-07-13 22:08] VITALS: BP 145/45; PULSE 70; RESP 16; TEMP 98; O2SAT 98
[2024-07-13] MEDS: AMIODARONE HCL 200 MG TAB PO SCH (23:45)
[2024-07-13] MEDS: POTASSIUM CHL 20 Meq TABLET PO ONE (23:45)
[2024-07-13] MEDS: APIXABAN 5 MG TAB PO SCH (23:46)
[2024-07-13] MEDS: ATORVASTATIN 20 MG TAB PO SCH (23:47)
[2024-07-13] MEDS: ACETAMINOPHEN 325 MG TAB PO PRN (23:48)
[2024-07-13] MEDS: ONDANSETRON HCL 4 MG/2 ML VIAL IV PRN (23:54)
[2024-07-14] VITALS (8 sets, daily range): BP systolic 102–145; BP diastolic 33–57; PULSE 70–75; RESP 15–19; TEMP 97.7–99.1; O2SAT 95–98
[2024-07-14] MEDS: POTASSIUM EFFERVESENT TAB 25 MEQ PO ONE ×2 (02:14→22:56)
[2024-07-14] MEDS: LEVOTHYROXINE SODIUM 88 MCG TAB PO SCH (06:33)
[2024-07-14 06:44] LABS: Anion Gap 8 (5-15); Carbon Dioxide 27 mmol/L (20-31); Chloride 106 mmol/L (98-107); Sodium 141 mmol/L (136-145)
[2024-07-14 06:50] LABS: BUN/Creatinine Ratio 13.5 (10.0-20.0); Blood Urea Nitrogen 10 mg/dL (9-23); Glucose 75 mg/dL (74-106)
[2024-07-14 07:00] LABS: Calcium 8.4 mg/dL (8.7-10.4); Potassium 2.7 mmol/L (3.5-5.1)
[2024-07-14] MEDS: FUROSEMIDE 40 MG TAB PO SCH (12:18)
[2024-07-14] MEDS: METOPROLOL SUCCINATE XL 50 MG TAB PO SCH (12:25)
[2024-07-14] MEDS: LOSARTAN POTASSIUM 50 MG TAB PO SCH (12:26)
[2024-07-14] MEDS: SERTRALINE HCL 50 MG TAB PO SCH (12:27)
[2024-07-14] MEDS ORDERED: POTASSIUM CHL 20 Meq TABLET PO ONE (13:00)
[2024-07-14] MEDS: POTASSIUM CHLORIDE 40 MEQ, LIDOCAINE 1% (LOCAL ANESTH.) 4 ML in SODIUM CHL 0.9% 250 ML IV ONE (14:09)
--- NOTE | 2024-07-14 15:29 | DVHPNRES ---
Progress Note Date Seen: Jul 14, 2024 Resident Creating Document: LUCIE AUGUSTIN RESIDENT Has the PT tested + for MRSA If YES, has PT been informed?: No Medical Necessity Reason Pt with a Central, PICC or Fol: No Subjective Review of Systems This is a 73-year-old female with past medical history of hypertension, CVA, CHF, breast cancer in 2004 with a right lumpectomy, history of AFib. Patient presented to the ED referred by her urologist/PCP due to abnormal low potassium levels of 2.1. Upon admission, the patient denied muscle cramps, palpitations, chest pain, shortness of breath or any other associated symptoms at that time. Initial labs showed a serum potassium of 2.3. Patient was admitted for further assessment and management of severe hypokalemia. Patient seen and examined at bedside. Patient reports mild stomachache at this time, we will start the patient on sucralfate suspension t.i.d. plus pantoprazole 40 mg IV daily. UA showed findings suggestive of UTI, patient will be started on IV ceftriaxone. Last potassium levels were 2.7 for which another 40 mEq of IV potassium were given. We will keep monitoring potassium closely. Patient denies muscle cramps, palpitations, chest pain, shortness of breath or any other symptoms. ROS Constitutional: Denies weight loss, fever and chills. HEENT: Denies changes in vision and hearing. Respiratory: Denies shortness of breath and cough Cardiovascular: Denies chest discomfort or palpitations GI: Reports mild abdominal tenderness diffusely in the umbilical region and epigastric. No nausea or vomiting at this time. : Denies dysuria and urinary frequency. Musculoskeletal: Denies myalgias and joint pain Skin: Denies rash and pruritus. Neurological: Denies dizziness, headache, vision or hearing problems Objective vital signs Vital Sign Date Time Temp Pulse Resp B/P (MAP) Pulse Ox O2 Delivery O2 Flow Rate FiO2 07/14/24 13:00 98.1 70 15 140/41 (74) 97 98.1 07/14/24 00:14 Room Air* 0 21 Total Intake and Output 07/13/24 07/13/24 07/14/24 15:00 23:00 07:00 Intake Total 125 ml 250 ml Output Total 0 ml Balance 125 ml 250 ml medications Current Medications Medications Dose Ordered Sig/Miranda Route Start Time Stop Time Status Last Admin Dose Admin Atorvastatin Calcium 40 mg HS PO 07/13/24 22:00 07/13/24 23:47 40 MG Apixaban 5 mg BID PO 07/13/24 22:00 07/14/24 12:27 5 MG Amiodarone HCl 200 mg Q12HR PO 07/13/24 22:00 07/13/24 23:45 200 MG Levothyroxine Sodium 88 mcg QAM@0600 PO 07/14/24 06:00 07/14/24 06:33 88 MCG Losartan Potassium 50 mg DAILY PO 07/14/24 10:00 07/14/24 12:26 50 MG Metoprolol Succinate 25 mg DAILY PO 07/14/24 10:00 07/14/24 12:25 25 MG Sertraline HCl 100 mg DAILY PO 07/14/24 10:00 07/14/24 12:27 100 MG Ondansetron HCl 4 mg Q4HP PRN IV 07/13/24 19:45 07/13/24 23:54 4 MG Acetaminophen 650 mg Q6HP PRN PO 07/13/24 19:45 07/14/24 06:34 650 MG Sucralfate 1 gm QIDACHS PO 07/14/24 17:00 Examination Physical Examination General: Patient alert and oriented in person, place and time. Patient following commands. HEENT: Normocephalic, atraumatic, moist mucous membranes Respiratory/pulmonary: Clear lungs bilaterally, vesicular murmurs present in almost all lung bond, no associated crackles or wheezes. Cardiovascular: Normal heart sounds S1 and S2 with no associated murmurs Abdomen: Abdomen nondistended, there is mild tenderness to palpation at the epigastrium and umbilical region. No masses palpated at this time. Extremities: There is no peripheral edema present at the lower extremities. Peripheral Pulses: 3+ Radial (R). 3+ Radial (L). 3+ Dorsalis pedis (R). 3+ Dorsalis pedis(L) Skin: No rashes or pruritus, there is no sacral edema present at this time. Neurological: Intact cranial nerves with no focal neurologic deficits laboratory and microbiology Laboratory Tests 07/14/24 05:54 Test 07/14/24 05:54 Range/Units Serum Glucose 75 74-106 mg/dL Problem List/Assessment/Plan Problem List/Assessment/Plan Assessment/Plan Acute abdominal pain likely due to peptic ulcer disease Previous history of fungal esophagitis -patient reports mild abdominal discomfort, tolerable in nature -start sucralfate suspension t.i.d. -start pantoprazole 40 mg IV daily -monitor symptoms Severe acute hypokalemia -initial serum potassium was 2.3 -IV potassium replacement 40mEq + 20mEq IV -Repeat and monitor K levels closely History of atrial fibrillation -last EKG showed ventricular paced rhythm -currently on Eliquis 5 mg b.i.d. -amiodarone 200 mg b.i.d. Primary hypertension -metoprolol succinate 25 mg daily -losartan 50 mg daily Hypothyroidism -ordered TSH and free T4 -continue levothyroxine 88 mcg q.a.m. Dyslipidemia -ordered lipid panel -continue atorvastatin 40 mg daily Goals of care discussed with the patient at bedside for >25min, FULL CODE Plan discussed with Dr. Darby Plan discussed with: Patient My Orders My Orders Orders - LUCIE AUGUSTIN Procedure Category Date Status Time * Wound Consult CONS 07/14/24 Transmitted Electrocardigram EKG 07/14/24 Logged 12:47 Potassium LAB 07/14/24 Logged 16:00 Potassium Chloride PHA 07/14/24 In Process (Potassium Chloride). 13:00 Sucralfate Susp PHA 07/14/24 Logged (Carafate Susp) 15:15 Ceftriaxone 1gm/50ml PHA 07/14/24 Logged D5w (Rocephin) 15:15 Date of Service: Jul 14, 2024 Billing Provider: BRENNAN DARBY MD Common Visit Codes: [id number] INP/OBS CARE(HIGH) LUCIE AUGUSTIN RESIDENT Jul 14, 2024 15:29 BRENNAN DARBY MD Jul 14, 2024 19:44
[2024-07-14] MEDS: cefTRIAXone 1GM/50ML D5W 50 ML IV SCH (15:52)
[2024-07-14] MEDS: SUCRALFATE 1 GM/10 ML ORAL SUSP PO SCH (15:52)
[2024-07-14 16:34] LABS: Triglycerides 89 mg/dL (< 150)
[2024-07-14 16:35] LABS: LDL Cholesterol 59 mg/dL (< 100)
[2024-07-14 16:36] LABS: Cholesterol 110 mg/dL (< 200)
[2024-07-14 16:43] LABS: HDL Cholesterol 26 mg/dL (40-59)
[2024-07-14] MEDS ORDERED: SUCRALFATE 1 GM TAB PO SCH (17:00)
[2024-07-14] MEDS ORDERED: POTASSIUM CHL 20MEQ/100ML 100 ML IV ONE (17:00)
[2024-07-14] MEDS: POTASSIUM CHL 20 Meq TABLET PO ONE (18:01)
[2024-07-14] MEDS ORDERED: SODIUM CHL 0.9% 100 ML IV SCH ×2 (18:30)
[2024-07-14] MEDS: SODIUM CHL 0.9% 100 ML IV SCH (20:00)
[2024-07-14] MEDS: POTASSIUM CHL 20MEQ/50ML 50 ML IV ONE (20:00)
[2024-07-14] MEDS: SPIRONOLACTONE 25 MG TAB PO SCH (20:03)
[2024-07-15 01:00] VITALS: BP 147/35; PULSE 70; RESP 18; TEMP 98.9; O2SAT 93
[2024-07-15 07:16] LABS: Sodium 139 mmol/L (136-145)
[2024-07-15 07:17] LABS: Anion Gap 6 (5-15); Carbon Dioxide 23 mmol/L (20-31)
[2024-07-15 07:22] LABS: BUN/Creatinine Ratio 10.4 (10.0-20.0); Glucose 84 mg/dL (74-106)
[2024-07-15 07:23] LABS: Magnesium 1.8 mg/dL (1.6-2.6)
[2024-07-15 07:40] LABS: Basophils # (auto) 0.1 10 ^3/uL (0-0.2); Basophils % (auto) 1.2 % (0.0-2.0); Eosinophils # (auto) 0.1 10 ^3/uL (0-0.8); Eosinophils % (auto) 2.3 % (0.0-7.0); Hematocrit 29.9 % (36.0-46.0); Lymphocytes # (auto) 1.6 10 ^3/uL (0.4-5.4); Mean Corpuscular Hemoglobin 36.3 pg (28.0-32.0); Mean Corpuscular Hgb Conc. 33.6 g/dL (32.0-36.0); Monocytes # (auto) 0.2 10 ^3/uL (0-1.3); Monocytes % (auto) 4.2 % (0.0-12.0); Neutrophils # (auto) 3.2 10 ^3/uL (1.6-8.6); Neutrophils % (auto) 61.3 % (37.0-80.0); Nucleated Red Blood Cells % 0.1 %; Platelet Count (auto) 220 10^3/uL (140-450); Red Blood Cells 2.77 10^6/uL (4.0-5.20); White Blood Cell 5.3 10^3/uL (4.4-10.8)
[2024-07-15 07:45] LABS: Blood Urea Nitrogen 7 mg/dL (9-23); Calcium 8.4 mg/dL (8.7-10.4); Chloride 110 mmol/L (98-107); Potassium 3.4 mmol/L (3.5-5.1)
[2024-07-15 08:30] VITALS: O2SAT 96
[2024-07-15 09:00] VITALS: BP 172/70; PULSE 70; RESP 16; TEMP 98.1; O2SAT 92
--- NOTE | 2024-07-15 09:05 | ECG ---
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
[2024-07-15] MEDS: MAGNESIUM OXIDE 400 MG TAB PO ONE (10:10)
[2024-07-15] MEDS: PANTOPRAZOLE 40 MG/10 ML VIAL INJ IV SCH (10:29)
[2024-07-15 13:23] LABS: % Iron Saturation 90.1 % (15-50)
[2024-07-15] MEDS ORDERED: POTA-220 PO (13:55)
--- NOTE | 2024-07-15 16:11 | DVHDSRES ---
Discharge Summary Date of Admission Resident Creating Document: LUCIE AUGUSTIN RESIDENT Jul 13, 2024 at 19:37 Date of Discharge: Jul 15, 2024 Admitting Diagnosis Hypokalemia. Labs/Diagnostic Data: Laboratory Results Test 07/15/24 11:22 07/15/24 06:22 07/14/24 15:58 07/13/24 14:00 Iron Level 145 ug/dL (50-170) Total Iron Binding Capacity 161 ug/dL (250-425) Percent Iron Saturation 90.1 % (15-50) Ferritin 537.3 ng/mL (10-291) White Blood Count 5.3 10^3/uL (4.4-10.8) Red Blood Count 2.77 10^6/uL (4.0-5.20) Hemoglobin 10.0 g/dL (12.2-16.2) Hematocrit 29.9 % (36.0-46.0) Mean Corpuscular Volume 108.0 fL (80.0-100.0) Mean Corpuscular Hemoglobin 36.3 pg (28.0-32.0) Mean Corpuscular Hemoglobin Concent 33.6 g/dL (32.0-36.0) Red Cell Distribution Width 15.0 % (11.8-14.3) Platelet Count 220 10^3/uL (140-450) Mean Platelet Volume 8.2 fL (6.9-10.8) Neutrophils (%) (Auto) 61.3 % (37.0-80.0) Lymphocytes (%) (Auto) 31.0 % (10.0-50.0) Monocytes (%) (Auto) 4.2 % (0.0-12.0) Eosinophils (%) (Auto) 2.3 % (0.0-7.0) Basophils (%) (Auto) 1.2 % (0.0-2.0) Neutrophils # (Auto) 3.2 10 ^3/uL (1.6-8.6) Lymphocytes # (Auto) 1.6 10 ^3/uL (0.4-5.4) Monocytes # (Auto) 0.2 10 ^3/uL (0-1.3) Eosinophils # (Auto) 0.1 10 ^3/uL (0-0.8) Basophils # (Auto) 0.1 10 ^3/uL (0-0.2) Nucleated Red Blood Cells 0.1 % Sodium Level 139 mmol/L (136-145) Potassium Level 3.4 mmol/L (3.5-5.1) Chloride Level 110 mmol/L (98-107) Carbon Dioxide Level 23 mmol/L (20-31) Anion Gap 6 (5-15) Blood Urea Nitrogen 7 mg/dL (9-23) Creatinine 0.67 mg/dL (0.550-1.02) Glomerular Filtration Rate Calc 92 mL/min (>90) BUN/Creatinine Ratio 10.4 (10.0-20.0) Serum Glucose 84 mg/dL (74-106) Calcium Level 8.4 mg/dL (8.7-10.4) Magnesium Level 1.8 mg/dL (1.6-2.6) Triglycerides Level 89 mg/dL (< 150) Cholesterol Level 110 mg/dL (< 200) LDL Cholesterol 59 mg/dL (< 100) HDL Cholesterol 26 mg/dL (40-59) Thyroid Stimulating Hormone (TSH) 2.76 uIU/mL (0.55-4.78) Free Thyroxine (T4) Calculated 1.73 ng/dL (0.89-1.76) Urine Color Light-orange (Yellow) Urine Clarity Ex.turbid (Clear) Urine pH 6.0 (5.0-9.0) Urine Specific [place] 1.018 (1.001-1.035) Urine Protein 1+ (Negative) Urine Ketones 1+ (Negative) Urine Blood 1+ /uL (Negative) Urine Nitrite Negative (Negative) Urine Bilirubin Negative (Negative) Urine Urobilinogen 3 mg/dL (Negative) Urine Leukocyte Esterase 3+ /uL (Negative) Urine RBC 6 /hpf (0 - 4) Urine WBC Clumps Present /hpf (None Seen) Urine Microscopic WBC 501 /HPF (0-5) Urine Squamous Epithelial Cells Few /hpf (<5) Urine Bacteria Mod /hpf (None Seen) Urine Mucus Few (None Seen) Urine Glucose Normal mg/dL (Normal) Other Laboratory Tests 07/15/24 06:22 Brief Hx & Hospital Course: This is a 73-year-old female with past medical history of hypertension, CVA, CHF, breast cancer in 2004 with a right lumpectomy, history of AFib. Patient presented to the ED referred by her urologist/PCP due to abnormal low potassium levels of 2.1. Upon admission, the patient denied muscle cramps, palpitations, chest pain, shortness of breath or any other associated symptoms at that time. Initial labs showed a serum potassium of 2.3. Patient was admitted for further assessment and management of severe hypokalemia. Patient was given supplement of potassium and magnesium which corrected amputation level. Patient was given pantoprazole and sucralfate for history of esophagitis. Patient was advised to follow with primary care physician and follow with BNP within 2-3 days. Also for home medication, stopped Lasix, continue hydrochlorothiazide and continue to monitor blood pressure record and into primary care physician. Condition at Discharge: Stable Final Diagnosis/Problems List Acute abdominal pain likely due to peptic ulcer disease Severe acute hypokalemia History of atrial fibrillation Primary hypertension Hypothyroidism Dyslipidemia History of candidal esophagitis Discharge Disposition: Home Discharge Instruct/Medications Diet: Cardiac 2g Na,low cholest Activity: No Restrictions, As Tolerated Follow Up/Referral: -follow up with PCP in 2 weeks Medications: continue home medications Discharge Statement: "Patient was advised to return to the ER or call 911 if any headaches, dizziness, shortness of breath, chest pain, abdominal pain, bleeding, fevers, or worsening of medical condition. Patient was counseled about treatment plan, medications, possible side effects, patientverbalized understanding. All questions were answered to the best of my ability. This discharge took greater then 30 minutes in planning, reviewing documentation, counseling the patient, and discussing with other team members." ASSESSMENT ASSESSMENT Assessment hypokalemaia uti dehydration Date of Service: Jul 15, 2024 Billing Provider: BRENNAN DARBY MD Common Visit Codes: [id number] DISCH DAY >30min BROOKE TAY RESIDENT Jul 15, 2024 16:11 BRENNAN DARBY MD Jul 16, 2024 09:42
[2024-07-17 10:26] LABS: Folate (Folic Acid) 0.9 ng/mL (>5.38)
--- NOTE | 2024-07-17 11:29 | ECG ---
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
== END 2024-07-15 12:11 | disposition home or self-care (01) | DRG 384 ==
LOC: ER 12:28 → OVERFLOW 19:37 → EAST 21:38
PROVIDERS: ADMIT Internal Medicine; ATTEND Emergency Medicine
DX: K27.9 Peptic ulcer, site unspecified, unspecified as acute or chronic, without hemorrhage or perforation (principal); N39.0 Urinary tract infection, site not specified; D68.9 Coagulation defect, unspecified; E87.6 Hypokalemia; I10 Essential (primary) hypertension; I48.91 Unspecified atrial fibrillation; E86.0 Dehydration; E03.9 Hypothyroidism, unspecified; E78.5 Hyperlipidemia, unspecified; Z87.442 Personal history of urinary calculi; Z86.73 Personal history of transient ischemic attack (TIA), and cerebral infarction without residual deficits; Z85.3 Personal history of malignant neoplasm of breast; Z88.1 Allergy status to other antibiotic agents; Z88.5 Allergy status to narcotic agent; Z79.01 Long term (current) use of anticoagulants; Z79.899 Other long term (current) drug therapy; Z90.49 Acquired absence of other specified parts of digestive tract
CPT/HCPCS: 36415; 80048; 80053; 80061; 81001; 82306; 82607; 82728; 82746; 83036; 83540; 83550; 83735; 84132; 84403; 84439; 84443; 84480; 84481; 84550; 85025; 92610; 93005; 96365; 96375; 99291; 99292; G0378; J2003; J2405; J2470; J3480

== ENCOUNTER 2024-07-31 19:42 | Inpatient (IN) | payer OTHER ==
[~2024-07-31] VITALS: Ht 154.9 cm; Wt 76.2 kg
[~2024-07-31 19:42] MED LIST changes: -FLUC200T PO; -FURO40TA4 PO; +POTA-220 PO; -POTA-228 PO; -SERT-160 PO
[2024-07-31 22:34] VITALS: BP 91/70; PULSE 61; PULSE 71; RESP 14; RESP 18; TEMP 97.8; O2SAT 91; O2SAT 96
[2024-08-01] VITALS (9 sets, daily range): BP systolic 116–147; BP diastolic 42–76; PULSE 69–79; RESP 15–18; TEMP 97.6–98.2; O2SAT 93–99
[2024-08-01] MEDS ORDERED: FERR325T24 PO (00:05)
[2024-08-01] MEDS ORDERED: NITROGLYCERIN 0.4 MG SL TAB SL PRN (00:15)
[2024-08-01] MEDS ORDERED: MORPHINE SULFATE INJ 2 MG/ml SYRG IV PRN (00:15)
[2024-08-01] MEDS: ONDANSETRON HCL 4 MG/2 ML VIAL IV PRN (00:40)
[2024-08-01 01:01] LABS: Basophils # (auto) 0 10 ^3/uL (0-0.2); Basophils % (auto) 0.7 % (0.0-2.0); Eosinophils # (auto) 0 10 ^3/uL (0-0.8); Eosinophils % (auto) 0.6 % (0.0-7.0); Hematocrit 29.4 % (36.0-46.0); Hemoglobin 9.8 g/dL (12.2-16.2); Lymphocytes # (auto) 1.3 10 ^3/uL (0.4-5.4); Lymphocytes % (auto) 21.8 % (10.0-50.0); Mean Corpuscular Hemoglobin 35.3 pg (28.0-32.0); Mean Corpuscular Hgb Conc. 33.2 g/dL (32.0-36.0); Mean Corpuscular Volume 106.2 fL (80.0-100.0); Monocytes # (auto) 0.3 10 ^3/uL (0-1.3); Monocytes % (auto) 4.4 % (0.0-12.0); Neutrophils # (auto) 4.3 10 ^3/uL (1.6-8.6); Neutrophils % (auto) 72.5 % (37.0-80.0); Nucleated Red Blood Cells % 0.3 %; Platelet Count (auto) 238 10^3/uL (140-450); Red Blood Cells 2.77 10^6/uL (4.0-5.20); Red Cell Distribution Width 17.5 % (11.8-14.3); White Blood Cell 5.9 10^3/uL (4.4-10.8)
[2024-08-01 01:27] LABS: Alanine Aminotransferase 40 U/L (7-40); Alkaline Phosphatase 97 U/L (46-116); Calcium 8.9 mg/dL (8.7-10.4)
[2024-08-01 01:28] LABS: Albumin 3.2 g/dL (3.2-4.8); Anion Gap 13 (5-15); Aspartate Aminotransferase 66 U/L (13-40); BUN/Creatinine Ratio 10.2 (10.0-20.0); Blood Urea Nitrogen 9 mg/dL (9-23); Carbon Dioxide 19 mmol/L (20-31); Chloride 106 mmol/L (98-107); Glucose 81 mg/dL (74-106); Potassium 3.7 mmol/L (3.5-5.1); Sodium 138 mmol/L (136-145); Total Protein 5.7 g/dL (5.7-8.2)
--- NOTE | 2024-08-01 05:03 | DVHHP2 ---
History of Present Illness Reason for Visit: Syncope History of Present Illness 73-year-old female transferred from [facility] for continuity of care and disposition. Patient presented to outside facility with complaints of syncopal episode. Patient apparently became unresponsive for approximately 15 minutes in front of family members. EN route patient had 30 seconds of ventricular tachycardia. Currently patient is alert and oriented. Does not recall any of the events. She does have a history of CVA with left-sided deficits. Denies chest pain, palpitations, shortness for breath. Past Medical History AFib, breast cancer, hypertension, CVA Past Surgical History Pacemaker, appendectomy, cholecystectomy, mastectomy Family History Noncontributory Smoke: No ALCOHOL: none Drugs: None Lives: with Family Review of Systems Review of Systems Review of systems are currently negative otherwise addressed in HPI. Allergies: Coded Allergies: Cephalexin (Verified Allergy, Unknown, 05/24/23) Morphine (Verified Allergy, Unknown, 02/25/24) Medications Current Medications Medications Dose Ordered Sig/Miranda Route Start Time Stop Time Status Last Admin Dose Admin Atorvastatin Calcium 40 mg HS PO 08/01/24 22:00 Levothyroxine Sodium 88 mcg QAM@0600 PO 08/01/24 06:00 Apixaban 5 mg BID PO 08/01/24 10:00 UNV Amiodarone HCl 200 mg DAILY PO 08/01/24 10:00 Ondansetron HCl 4 mg Q4HP PRN IV 08/01/24 00:15 08/01/24 00:40 4 MG Acetaminophen 650 mg Q6HP PRN PO 08/01/24 00:15 Nitroglycerin 0.4 mg Q5MINP PRN SL 08/01/24 00:15 Morphine Sulfate 2 mg Q30M PRN IV 08/01/24 00:15 UNV Exam Vital Signs Vital Signs Date Time Temp Pulse Resp B/P (MAP) Pulse Ox O2 Delivery O2 Flow Rate FiO2 08/01/24 01:00 97.7 71 18 128/42 (70) 98 97.7 07/31/24 22:34 Room Air* 0 21 Exam Gen: 73-year-old female in mild distress. Skin: Warm, dry, normal color and texture, no rash. HEENT: Normocephalic atraumatic, mucous membranes moist and pink. Neck: Cervical and supraclavicular nodes normal without enlargement, trachea is midline, thyroid gland is normal without masses. Pulmonary: Clear to auscultation and percussion bilaterally. Cardiac: Regular rate and rhythm. No murmur Abdomen: Soft, nontender, nondistended, bowel sounds present all 4 quadrants, no guarding, no rigidity, no organomegaly. Extremities: No cyanosis, clubbing, no edema Neuro: Cranial nerves II through XII grossly intact, normal affect and speech, left-sided deficits from old CVA Labs/Xrays CT of the brain from outside facility does not show any acute pathology. Does show a right old infarct Chest x-ray from outside facility with no acute pathology. Labs Test 08/01/24 00:44 Range/Units White Blood Count 5.9 4.4-10.8 10^3/uL Red Blood Count 2.77 L 4.0-5.20 10^6/uL Hemoglobin 9.8 L 12.2-16.2 g/dL Hematocrit 29.4 L 36.0-46.0 % Mean Corpuscular Volume 106.2 H 80.0-100.0 fL Mean Corpuscular Hemoglobin 35.3 H 28.0-32.0 pg Mean Corpuscular Hemoglobin Concent 33.2 32.0-36.0 g/dL Red Cell Distribution Width 17.5 H 11.8-14.3 % Platelet Count 238 140-450 10^3/uL Mean Platelet Volume 8.2 6.9-10.8 fL Neutrophils (%) (Auto) 72.5 37.0-80.0 % Lymphocytes (%) (Auto) 21.8 10.0-50.0 % Monocytes (%) (Auto) 4.4 0.0-12.0 % Eosinophils (%) (Auto) 0.6 0.0-7.0 % ORDERING PHYSICIAN: DYLON HERNANDEZ AGACNP PROCEDURE(s): ECIDC - ECHO 2D MODE CARDIAC DOP REASON: pre-op ORDER NUMBER(s): [id number], ACCESSION NUMBER(s): [id number] APPROVED REPORT EXAM: Two-dimensional and M-mode echocardiogram with Doppler and color Doppler. Blood Pressure: 147/58 mmHg INDICATION pre- op DIMENSIONS LVDd 5.3 (3.8-5.7cm) LA (2D) (1.9-4.0cm) Aortic Root (2.0-3.7cm) LVDs 3.8 (2.5-4.0cm) LA (MM) (1.9-4.0cm) Aortic Cusp Exc (1.5- 2.0cm) EF (%) 52.7 (55-70%) Rt. Atrium (1.9-4.0cm) Asc. Aorta cm IVSd 1.1 (0.7-1.1cm) RV (D) (1.8-2.4cm) PWd 1.0 (0.7-1.1cm) Mitral Valve Mitral Mitral Stenosis E/A ratio 0.0 2D MVA cm2 Pulmonic Valve V2 0.83m/s Conclusion LV EJECTION FRACTION IS 65% MILD LVH AND MILD LV DIASTOLIC DYSFUNCTION NORMAL VALVES NO EFFUSION NORMAL RV FUNCTION Neutrophils # (Auto) 4.3 1.6-8.6 10 ^3/uL Lymphocytes # (Auto) 1.3 0.4-5.4 10 ^3/uL Monocytes # (Auto) 0.3 0-1.3 10 ^3/uL Eosinophils # (Auto) 0 0-0.8 10 ^3/uL Basophils # (Auto) 0 0-0.2 10 ^3/uL Nucleated Red Blood Cells 0.3 % D-Dimer, Quantitative 0.32 0.0-0.49 mg/L FEU Sodium Level 138 136-145 mmol/L Potassium Level 3.7 3.5-5.1 mmol/L Chloride Level 106 98-107 mmol/L Carbon Dioxide Level 19 L 20-31 mmol/L Anion Gap 13 5-15 Blood Urea Nitrogen 9 9-23 mg/dL Creatinine 0.88 0.550-1.02 mg/dL Glomerular Filtration Rate Calc 69 >90 mL/min BUN/Creatinine Ratio 10.2 10.0-20.0 Serum Glucose 81 74-106 mg/dL Calcium Level 8.9 8.7-10.4 mg/dL Total Bilirubin 1.0 0.2-1.0 mg/dL Aspartate Amino Transferase (AST) 66 H 13-40 U/L Alanine Aminotransferase (ALT) 40 7-40 U/L Alkaline Phosphatase 97 46-116 U/L Troponin I High Sensitivity 12 </=34 ng/L Total Protein 5.7 5.7-8.2 g/dL Albumin 3.2 3.2-4.8 g/dL Thyroid Stimulating Hormone (TSH) 8.80 H 0.55-4.78 uIU/mL Assessment/Plan Assessment/Plan Assessment Syncope Questionable arrhythmia Hypokalemia Status post pacemaker Hypertension Plan Admit the patient to telemetry to the hospitalist Cardiology consultation for possible pacemaker interrogation Resume home medications Continue treatment per orders. Plan discussed with: Patient My Orders Orders - HEIDY BELLE Procedure Category Date Status Time Mrsa Screen VLADIMIR 07/31/24 Logged 23:43 * Dietary Consult CONS 07/31/24 Transmitted 23:43 * Wound Consult CONS 07/31/24 Transmitted Atorvastatin (Lipitor) PHA 08/01/24 In Process 22:00 Levothyroxine Tablet PHA 08/01/24 In Process (Synthroid Tablet) 06:00 Apixaban (Eliquis) PHA 08/01/24 Pending 10:00 Amiodarone Tablet PHA 08/01/24 In Process (Cordarone Tablet) 10:00 Admit ADMIT 08/01/24 Transmitted 00:06 Ondansetron Hcl PHA 08/01/24 In Process (Zofran) 00:15 Cardiac DIET 08/01/24 Transmitted Diet-2gna,Lofat,Lochol Breakfast Condition: Fair TARI 08/01/24 In Process 00:06 Acetaminophen Tablet PHA 08/01/24 In Process (Tylenol Tablet) 00:15 Bedrest With Bathroom TARI 08/01/24 In Process Privileg 00:06 Nitroglycerin PHA 08/01/24 In Process Sublingual (Ntrostat 00:15 Morphine Sulfate PHA 08/01/24 Pending Injection 00:15 Stat Ekg For Chest TARI 08/01/24 In Process Pain 00:06 Notify Of Changes [facility] 08/01/24 In Process From Base 00:06 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
[2024-08-01] MEDS: LEVOTHYROXINE SODIUM 88 MCG TAB PO SCH (06:08)
[2024-08-01] MEDS: ACETAMINOPHEN 325 MG TAB PO PRN (06:10)
[2024-08-01] MEDS: LOSARTAN POTASSIUM 25 MG TAB PO SCH (10:22)
[2024-08-01] MEDS: AMIODARONE HCL 200 MG TAB PO SCH (10:23)
[2024-08-01] MEDS: METOPROLOL SUCCINATE XL 50 MG TAB PO SCH (10:23)
[2024-08-01] MEDS: APIXABAN 5 MG TAB PO SCH (10:24)
--- NOTE | 2024-08-01 11:03 | DVHINCON2 ---
[facility] 08/01/24 1103: Date Seen: Aug 01, 2024 Referring Physician LEONCIO Mcbride Reason for Consultation Syncope History of Present Illness This is a 73-year-old female who presented to the emergency room at [facility] via EMS with a chief complaint of syncopal event on 07/31/24. She is somewhat a poor historian. Information obtained from at bedside and records. It appears the patient experienced a syncopal event lasting for approximately 15-20 minutes prompting to call 911. Per , the patient was sitting on a wheelchair at the time of the event and denies cardiopulmonary arrest. Per aforementioned facility records, EMS reported a 30 second run of ventricular tachycardia with no further events during admission. She denies any presyncopal or post syncopal symptoms including dizziness, visual disturbances, WHITEHEAD, dysarthria, worsening unilateral hemiparesis, chest discomfort, SOB, or palpitations. Records from [place] revealed: a 12 lead electrocardiogram with an atrial paced rhythm with an associated right bundle branch block, an unremarkable chest X-Ray, a head CT WO Contrast revealing non-acute findings and a chronic large right MCA territory infarct, and a potassium level of 2.5 mmol/L. Follows up in the outpatient setting with our cardiology office with latest appointment on 07/27/2023, missing follow-up appointment on 01/2024, and latest pacemaker interrogation on 04/15/2023. Significant medical history includes persistent atrial fibrillation on Eliquis/amiodarone therapy, history of tachy-deanna syndrome status post dual-chamber pacemaker (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 Past Medical History Past medical history reviewed. No other significant than mentioned above. Past Surgical History Dual-chamber pacemaker implantation, 12/2020 Right mastectomy status post reconstruction Tonsillectomy Appendectomy Cholecystectomy Right ankle Family History: Diabetes mellitus G8 MOTHER Hypertension G8 MOTHER Rectal cancer G8 MOTHER G8 MOTHER Family History Family history reviewed. Social History Denies the use of illicit drugs, alcohol, or tobacco use. Allergies: Coded Allergies: Cephalexin (Verified Allergy, Unknown, 2/19/24) Morphine (Verified Allergy, Unknown, 02/25/24) Home Meds Active Scripts Potassium Chloride (Klor-Con M20) 20 Meq Tab, 20 MEQ PO QAM for 30 Days, #30 TAB Prov:BRENNAN DARBY MD 07/15/24 Sucralfate (Sucralfate) 1 Gm Tab, 1 GM PO QIDACHS for 30 Days, #120 TAB Prov:BRENANN DARBY MD 03/06/24 Nystatin (Mouth-Throat) (Mycostatin (Mouth-Throat)) 500,000 Units/5 Ml Ss, 5 ML MT QID for 30 Days, #120 ML Prov:BRENNAN DARBY MD 03/06/24 Pantoprazole Sodium Sesquihydr (Pantoprazole Sodium) 40 Mg Tab, 40 MG PO BID for 30 Days, #60 TAB Prov:BRENNAN DARBY MD 03/06/24 Levothyroxine Sodium (Levothyroxine Sodium) 75 Mcg Tab, 88 MCG PO DAILY for 30 Days, #36 TAB 2 Refills Prov:NIC GUY MD 09/18/23 Reported Medications Ferrous Sulfate (Ferrous Sulfate) 325 Mg Tab, 325 MG PO 2XW for 30 Days, MG 08/01/24 Hydrochlorothiazide W/Triamter (Triamterene/Hydrochloroth) 1 Cap Cap, 1 CAP PO DAILY for 30 Days, #30 [TRIAMT/HCTZ 37.5/25] 02/29/24 Apixaban Base (ELIQUIS) 5 Mg Tab, 1 TAB PO BID for 30 Days, #60 02/29/24 Trazodone Hcl (Trazodone Hcl) 50 Mg Tab, 0.5 TAB PO HS PRN for 30 Days, #15 02/29/24 Amlodipine Besylate (Amlodipine Besylate) 10 Mg Tab, 1 TAB PO DAILY for 30 Days, #30 12/24/23 Amiodarone HCl (Amiodarone HCl) 200 Mg Tab, 1 TAB PO BID 12/24/23 Losartan Potassium (Losartan Potassium) 50 Mg Tab, 1 TAB PO DAILY for 90 Days, #90 12/24/23 Atorvastatin Calcium (ATORVASTATIN CALCIUM) 40 Mg Tab, 1 TAB PO DAILY for 90 Days, #90 12/24/23 Metoprolol Succinate (Metoprolol Succinate Er) 50 Mg Tab, 1 TAB PO DAILY 12/24/23 Home Meds Home medications reviewed. Current Medications Current Medications Medications (Trade) Dose Ordered Sig/Miranda Route PRN Reason Start Time Stop Time Status Last Admin Atorvastatin Calcium (Lipitor) 40 mg HS PO 08/01/24 22:00 Levothyroxine Sodium (Synthroid Tablet) 88 mcg QAM@0600 PO 08/01/24 06:00 08/01/24 06:08 Apixaban (Eliquis) 5 mg BID PO 08/01/24 10:00 Amiodarone HCl (Cordarone Tablet) 200 mg DAILY PO 08/01/24 10:00 Ondansetron HCl (Zofran) 4 mg Q4HP PRN IV NAUSEA / VOMITING 08/01/24 00:15 08/01/24 00:40 Acetaminophen (Tylenol Tablet) 650 mg Q6HP PRN PO PAIN SCALE 1-3 OR TEMP>100.4 08/01/24 00:15 08/01/24 06:10 Nitroglycerin (Ntrostat Sublingual) 0.4 mg Q5MINP PRN SL FOR CHEST PAIN 08/01/24 00:15 Morphine Sulfate 2 mg Q30M PRN IV FOR CHEST PAIN 08/01/24 00:15 Hold Losartan Potassium (Cozaar Tablet) 25 mg DAILY PO 08/01/24 10:00 Metoprolol Succinate (Toprol Xl) 25 mg DAILY PO 08/01/24 10:00 Review of Systems Constitutional: No symptom reported Ears, Nose, & Throat: No symptom reported Eyes: No symptom reported Neurological: No symptoms reported Pulmonary/Respiratory: No symptom reported Cardiovascular: No symptom reported Gastrointestinal: No symptom reported Genitourinary: No symptom reported Musculoskeletal: No symptom reported Skin: No symptom reported Psychiatric: No symptom reported Endocrine: No symptom reported Hemotologic/Lymphatic: No symptom reported Vital Signs Vital Signs Date Time Temp Pulse Resp B/P (MAP) Pulse Ox O2 Delivery O2 Flow Rate FiO2 08/01/24 09:00 98.1 77 15 138/76 (96) 98 98.1 07/31/24 22:34 Room Air* 0 21 Physical Exam General Appearance: Cooperative. Chronically ill. In no acute distress Head Exam: Normal inspection Neck Exam: Normal inspection. Non-tender. Normal alignment Pulmonary/Respiratory: Chest non-tender. Clear bilateral breath sounds Cardiovascular/Chest: Atrial paced rhythm. RBBB present. No murmurs. No JVD. Peripheral Pulses: 2+ Radial (R). 2+ Radial (L). 2+ Pedal (R). 2+ Pedal (L) Abdominal Exam: Normal bowel sounds. Soft. Nontender. No hepatospenomegaly. No masses Ankle Exam: Negative ankle edema Lower extremities: Negative lower extremity edema Neuro/Mental Status: A&O x3. Alert but very poor historian. Left-sided hemiparesis Thoughts/Psych: Normal thought pattern. Appropriate mood and affect. Passive Appearance: In no acute distress Skin Exam: Normal inspection. Pale color. Warm. Dry Labs/Diagnostic Data Labs Test 08/01/24 08:56 08/01/24 00:44 Range/Units White Blood Count 5.9 4.4-10.8 10^3/uL Red Blood Count 2.77 L 4.0-5.20 10^6/uL Hemoglobin 9.8 L 12.2-16.2 g/dL Hematocrit 29.4 L 36.0-46.0 % Mean Corpuscular Volume 106.2 H 80.0-100.0 fL Mean Corpuscular Hemoglobin 35.3 H 28.0-32.0 pg Mean Corpuscular Hemoglobin Concent 33.2 32.0-36.0 g/dL Red Cell Distribution Width 17.5 H 11.8-14.3 % Platelet Count 238 140-450 10^3/uL Mean Platelet Volume 8.2 6.9-10.8 fL Neutrophils (%) (Auto) 72.5 37.0-80.0 % Lymphocytes (%) (Auto) 21.8 10.0-50.0 % Monocytes (%) (Auto) 4.4 0.0-12.0 % Eosinophils (%) (Auto) 0.6 0.0-7.0 % Basophils (%) (Auto) 0.7 0.0-2.0 % Neutrophils # (Auto) 4.3 1.6-8.6 10 ^3/uL Lymphocytes # (Auto) 1.3 0.4-5.4 10 ^3/uL Monocytes # (Auto) 0.3 0-1.3 10 ^3/uL Eosinophils # (Auto) 0 0-0.8 10 ^3/uL Basophils # (Auto) 0 0-0.2 10 ^3/uL Nucleated Red Blood Cells 0.3 % D-Dimer, Quantitative 0.32 0.0-0.49 mg/L FEU Sodium Level 138 136-145 mmol/L Potassium Level 3.7 3.5-5.1 mmol/L Chloride Level 106 98-107 mmol/L Carbon Dioxide Level 19 L 20-31 mmol/L Anion Gap 13 5-15 Blood Urea Nitrogen 9 9-23 mg/dL Creatinine 0.88 0.550-1.02 mg/dL Glomerular Filtration Rate Calc 69 >90 mL/min BUN/Creatinine Ratio 10.2 10.0-20.0 Serum Glucose 81 74-106 mg/dL Calcium Level 8.9 8.7-10.4 mg/dL Total Bilirubin 1.0 0.2-1.0 mg/dL Aspartate Amino Transferase (AST) 66 H 13-40 U/L Alanine Aminotransferase (ALT) 40 7-40 U/L Alkaline Phosphatase 97 46-116 U/L Troponin I High Sensitivity 12 </=34 ng/L Total Protein 5.7 5.7-8.2 g/dL Albumin 3.2 3.2-4.8 g/dL Thyroid Stimulating Hormone (TSH) 8.80 H 0.55-4.78 uIU/mL Assessment Syncope and collapse Likely paroxysmal atrial fibrillation, on Eliquis/amiodarone therapy Presence of dual-chamber pacemaker ([employer], 2020) History of massive CVA with left-sided hemiparesis Severe hypokalemia, resolved Hypertension Dyslipidemia Hypothyroidism Anemia Obesity Plan/Recommendation (Dr. Velásquez) We will continue further cardiac evaluation with a transthoracic echocardiogram as well as a pacemaker interrogation for which [employer] was contacted and will send out national sales representative Rayne. In the meantime, replete electrolytes as necessary. Continue Eliquis, amiodarone, and metoprolol therapy. [id number] Score 6 points, HAS-BLED Score 2 points. Thyroid workup per primary care team. Continue neurological recommendations. Rest of plan per clinical course. Thank you for allowing us to participate in this patient's care. Please call if you have any questions or concerns. * Echocardiogram from 12/26/2023 revealed LVEF 65%. Mild LVH mild LV diastolic dysfunction. * Bilateral carotid duplex from 06/30/2024 revealed no hemodynamically significant stenosis noted in the bilateral carotid system. * Nuclear stress test from 05/24/2023 revealed ECG findings negative for ischemia and nuclear findings negative for ischemia. * Latest pacemaker interrogation on 04/15/2023 revealed DDDR. CLIVE 5.8 years. Several episodes of SVT/A-flutter/A-Fib recorded. Device function is normal. Critical care time: 45 min. This medical document was created using an [employer] medical record system with voice recognition software and computerized dictation system. Although this document has been carefully reviewed, there might still be some phonetic and typographical errors. Occasional wrong-word or ``sound-alike substitutions may have occurred due to the inherent limitations of voice recognition software. These areas are purely typographical due to imperfections of the software programs and do not reflect any compromise in the patient's medical care. Please read the chart carefully and recognize, using context, where these substitutions have occurred. Plan discussed with: Patient, Spouse, Other NYHA Physical activity limitations: NA Date of Service: Aug 01, 2024 Billing Provider: [facility] Cardiology Common Codes: 36429-[id number] CARE 30-74 MIN RICKY VELÁSQUEZ MD 08/02/24 0932: Date Seen: Aug 01, 2024 Family History: Diabetes mellitus G8 MOTHER Hypertension G8 MOTHER Rectal cancer G8 MOTHER G8 MOTHER Allergies: Coded Allergies: Cephalexin (Verified Allergy, Unknown, 05/24/23) Morphine (Verified Allergy, Unknown, 02/25/24) Home Meds Active Scripts Potassium Chloride (Klor-Con M20) 20 Meq Tab, 20 MEQ PO QAM for 30 Days, #30 TAB Prov:BRENNAN DARBY MD 07/15/24 Sucralfate (Sucralfate) 1 Gm Tab, 1 GM PO QIDACHS for 30 Days, #120 TAB Prov:BRENNAN DARBY MD 03/06/24 Nystatin (Mouth-Throat) (Mycostatin (Mouth-Throat)) 500,000 Units/5 Ml Ss, 5 ML MT QID for 30 Days, #120 ML Prov:BRENNAN DARBY MD 03/06/24 Pantoprazole Sodium Sesquihydr (Pantoprazole Sodium) 40 Mg Tab, 40 MG PO BID for 30 Days, #60 TAB Prov:BRENNAN DARBY MD 03/06/24 Levothyroxine Sodium (Levothyroxine Sodium) 75 Mcg Tab, 88 MCG PO DAILY for 30 Days, #36 TAB 2 Refills Prov:NIC UGY MD 09/18/23 Reported Medications Ferrous Sulfate (Ferrous Sulfate) 325 Mg Tab, 325 MG PO 2XW for 30 Days, MG 08/01/24 Hydrochlorothiazide W/Triamter (Triamterene/Hydrochloroth) 1 Cap Cap, 1 CAP PO DAILY for 30 Days, #30 [TRIAMT/HCTZ 37.5/25] 02/29/24 Apixaban Base (ELIQUIS) 5 Mg Tab, 1 TAB PO BID for 30 Days, #60 02/29/24 Trazodone Hcl (Trazodone Hcl) 50 Mg Tab, 0.5 TAB PO HS PRN for 30 Days, #15 02/29/24 Amlodipine Besylate (Amlodipine Besylate) 10 Mg Tab, 1 TAB PO DAILY for 30 Days, #30 12/24/23 Amiodarone HCl (Amiodarone HCl) 200 Mg Tab, 1 TAB PO BID 12/24/23 Losartan Potassium (Losartan Potassium) 50 Mg Tab, 1 TAB PO DAILY for 90 Days, #90 12/24/23 Atorvastatin Calcium (ATORVASTATIN CALCIUM) 40 Mg Tab, 1 TAB PO DAILY for 90 Days, #90 12/24/23 Metoprolol Succinate (Metoprolol Succinate Er) 50 Mg Tab, 1 TAB PO DAILY 12/24/23 Plan/Recommendation monitor telemetry for arrhythmia. device interrogation without any significant findings that could explain 15 min syncope. defer neuro work up to specialist. Echo with preserved EF, significant LVH, needs to follow up in clinic. Plan discussed with: Patient Cardiology Common Codes: [id number] INP/OBS CARE (High) [facility] CHE[facility] Aug 01, 2024 11:03 RICKY VELÁSQUEZ MD Aug 02, 2024 09:32
[2024-08-01] MEDS: HYDROcodone-ACET 5/325MG TAB PO PRN (11:34)
[2024-08-01] MEDS: PANTOPRAZOLE 40 MG TAB PO ONE (11:34)
[2024-08-01] MEDS: SUCRALFATE 1 GM/10 ML ORAL SUSP PO ONE (11:34)
--- NOTE | 2024-08-01 15:18 | DVHPNRES ---
Progress Note Date Seen: Aug 01, 2024 Resident Creating Document: SUGEY SCHULTZ RESIDENT Medical Necessity Reason Pt with a Central, PICC or Fol: No Subjective Review of Systems This is a 73-year-old female with past medical history of AFib on Eliquis, breast cancer, status post pacemaker, hypertension, CVA with left-sided deficit, transferred from [facility] for an evaluation evaluation of syncopal episode. According to the the patient became unresponsive when shifting from bed to wheelchair approximately 15 minutes, only mumbling and moaning that prompted to visit to the hospital. En route the patient had 30 seconds of ventricular tachycardia. patient denies chest pain, shortness of breath, dizziness, diaphoresis, abdominal pain, nausea, vomiting or altered bowel habit. Patient was seen and examined on the bedside. She is alert,oriented x3. Patient is bed-bound for last 1 and half year. Complain of epigastric pain, no other active complaint. Review of system: Constitutional: No: Fever, Chills, Sweats, Weakness, Malaise, Other Eyes: No: Pain, Vision change, Conjunctivae inflammation, Eyelid inflammation, Other, Redness ENT: No: Ear pain, Ear discharge, Nose pain, Nose discharge, Nose congestion, Mouth pain, Mouth swelling, Throat pain, Throat swelling, Other Respiratory: Shortness of breath, improving No: Cough, Dry,Wheezing, Hemoptysis, Pleuritic Pain, Sputum, Wheezing, Other Cardiovascular: No: Chest Pain, Palpitations, Orthopnea, Paroxysmal Noc. Dyspnea, Edema, Lt Headedness, Other Gastrointestinal: Abdominal Pain, No: Nausea, Vomiting, Diarrhea, Constipation, Melena, Hematochezia, Other Musculoskeletal: No: other, neck pain, shoulder pain, arm pain, back pain, hand pain, leg pain, foot pain Neurological:; No: Weakness, Numbness, Incoordination, Change in speech, Confusion, Seizures Objective vital signs Vital Sign Date Time Temp Pulse Resp B/P (MAP) Pulse Ox O2 Delivery O2 Flow Rate FiO2 08/01/24 12:35 97.6 76 16 133/72 (92) 97 97.6 08/01/24 08:15 Room Air* 0 21 Total Intake and Output 07/31/24 07/31/24 08/01/24 15:00 23:00 07:00 Intake Total 0 ml Balance 0 ml medications Current Medications Medications Dose Ordered Sig/Miranda Route Start Time Stop Time Status Last Admin Dose Admin Atorvastatin Calcium 40 mg HS PO 08/01/24 22:00 Levothyroxine Sodium 88 mcg QAM@0600 PO 08/01/24 06:00 08/01/24 06:08 88 MCG Apixaban 5 mg BID PO 08/01/24 10:00 08/01/24 10:24 5 MG Amiodarone HCl 200 mg DAILY PO 08/01/24 10:00 08/01/24 10:23 200 MG Ondansetron HCl 4 mg Q4HP PRN IV 08/01/24 00:15 08/01/24 00:40 4 MG Acetaminophen 650 mg Q6HP PRN PO 08/01/24 00:15 08/01/24 06:10 650 MG Nitroglycerin 0.4 mg Q5MINP PRN SL 08/01/24 00:15 Morphine Sulfate 2 mg Q30M PRN IV 08/01/24 00:15 Hold Losartan Potassium 25 mg DAILY PO 08/01/24 10:00 08/01/24 10:22 25 MG Metoprolol Succinate 25 mg DAILY PO 08/01/24 10:00 08/01/24 10:23 25 MG Sucralfate 1 gm BID@0600,2200 PO 08/01/24 22:00 Pantoprazole Sodium 40 mg DAILY@0600 PO 08/02/24 06:00 Acetaminophen/ Hydrocodone Bitart 1 tab Q4HPRN PRN PO 08/01/24 10:30 08/01/24 11:34 1 TAB Examination Physical examination: General Appearance: Alert, Oriented X3, Cooperative, mild distress HEENT: Atraumatic, PERRLA, EOMI, Mucous membrane moist/pink Respiratory: Clear to auscultation, Normal air movement Cardiovascular: Regular rate, Normal S1, Normal S2, No murmurs, no chest wall tenderness Abdominal: Normal bowel sounds, Soft, No tenderness, No hepatosplenomegaly, No masses Extremities: No clubbing, No cyanosis, No edema, Normal pulses, No tenderness/swelling Skin: No rashes, No breakdown, No significant lesion Neuro: Bed bound, Lt sided weakness, Normal speech, Strength at 5/5 X2 ext, Normal tone, Sensation intact, grossly intact cranial nerves. Psych/Mental Status: Mental status NL, Mood NL laboratory and microbiology Laboratory Tests 08/01/24 00:44 Test 08/01/24 00:44 Range/Units Serum Glucose 81 74-106 mg/dL Microbiology Date/Time Source Procedure Growth Status 08/01/24 06:19 Nose MRSA Screen - Final Complete Labs and/or images reviewed: Labs reviewed by me, Image(s) reviewed by me Problem List/Assessment/Plan Problem List/Assessment/Plan Assessment and plan: # Syncope and collapse, rule out tachyarrhythmia # Paroxysmal atrial fibrillation with secondary hypercoagulable state # Status post dual-chamber pacemaker # History of massive CVA with left-sided hemiparesis # Hypertensive heart disease # Dyslipidemia - 12 lead electrocardiogram with an atrial paced rhythm with an associated right bundle branch block, an unremarkable chest X-Ray, a head CT WO Contrast revealing non-acute findings and a chronic large right MCA territory infarct, record from [place] - [id number] score 6 and HAS-BLED score 2 - Keep potassium above 4 and magnesium above 2 - Echo on revealed LVEF 65%, mild LVH and mild LV diastolic dysfunction - Bilateral carotid duplex from 06/27 showed no hemodynamically significant stenosis noted in the bilateral carotid system - Nuclear stress test from 05/29 revealed nuclear findings negative for ischemia - Echo pending - continue losartan 25 mg daily, metoprolol succinate 25 mg daily, amiodarone 200 mg daily and Eliquis 5 mg b.i.d. - continue atorvastatin 40 mg at - Pending pacemaker interrogation # Chronic hypothyroidism with elevated TSH - Increased levothyroxine to 88 mcg p.o. at q.a.m. and we will monitor T4 level. # Severe hypokalemia - Potassium was 2.5 at [place] and it was replaced - potassium 50 mEq p.o. once - monitor BMP # Chronic macrocytic anemia likely due to alcohol-induced - counseled patient regarding alcohol abuse and rehabilitation # GERD - Protonix 40 mg p.o. daily and Carafate 1 g b.i.d. # DVT prophylaxis - patient is on Eliquis Goal of care discussed with the patient and her for 20 minutes; full code Plan discussed with Dr. Guy Plan discussed with: Patient, Spouse, Other (Nurse) My Orders My Orders Orders - SUGEY SCHULTZ Procedure Category Date Status Time Urinalysis LAB 08/01/24 Uncollected 08:29 Communication Order ORDERS 08/01/24 Transmitted 08:29 Sucralfate Susp PHA 08/01/24 In Process (Carafate Susp) 22:00 Pantoprazole Tablet PHA 08/02/24 In Process (Protonix Tablet) 06:00 Hydrocodone-Acet PHA 08/01/24 In Process 5/325mg Tab ([place] 10:30 [employer] To Assess ORDERS 08/01/24 Transmitted Pacemaker 10:21 Cleanse Wound With TARI 08/01/24 In Process Wound Clean 11:23 Apply Z-Guard TARI 08/01/24 In Process 11:23 Dietary Evaluation Review Comments: 1) Ensure Enlive 240ml BID 2) Brock 1 pk BID 3) Continue current plan of care Expected Outcomes/Goals: To meet >75% estimated needs Fu 3-5 days Addendum Addendum Addendum I was physically present for the [place] portions of the service provided to patient by THE RESIDENT. I have reviewed the documentation, discussed the case with resident and agree with the resident's documentation except as noted. Also the patient's clinical case was discussed with the patient's nurse. This medical document was created using an electronic medical record system with computerized dictation system. Although this document has been carefully reviewed, there might still be some phonetic and typographical errors. These areas are purely typographical due to imperfections of the software programs, and do not reflect any compromise in the patient's medical care. Late signature. Date of Service: Aug 01, 2024 Billing Provider: NIC GUY MD Common Visit Codes: [id number] INP/OBS CARE(HIGH) Secondary Visit Codes: [id number] CARE PLAN 30 MINUTES (20 minutes) SUGEY SCHULTZ RESIDENT Aug 01, 2024 15:18 NIC GUY MD Aug 02, 2024 09:18
[2024-08-01] MEDS: POTASSIUM EFFERVESENT TAB 25 MEQ PO ONE (18:12)
[2024-08-01 19:09] LABS: Urine Amorphous Crystal FEW /hpf (None Seen); Urine Bacteria FEW /hpf (None Seen); Urine Blood 3+ /uL (Negative); Urine Clarity Ex.Turbid (Clear); Urine Color Orange (Yellow); Urine Mucus FEW (None Seen); Urine Protein, UAD 1+ (Negative); Urine Specific Gravity 1.025 (1.001-1.035); Urine Squamous Epithelial Cell MOD /hpf (<5); Urine Urobilinogen 4 mg/dL (Negative); Urine WBC 59 /HPF (0-5)
[2024-08-01] MEDS: ATORVASTATIN 20 MG TAB PO SCH (21:29)
[2024-08-01] MEDS: SUCRALFATE 1 GM/10 ML ORAL SUSP PO SCH (21:29)
[2024-08-02] VITALS (7 sets, daily range): BP systolic 109–140; BP diastolic 34–55; PULSE 70–78; RESP 16–18; TEMP 97.3–98.3; O2SAT 93–99
[2024-08-02] MEDS: PANTOPRAZOLE 40 MG TAB PO SCH (05:45)
[2024-08-02 07:07] LABS: Free Thyroxine Index 6.9 (1.2-4.9); Thyroxine (T4) 18.2 ug/dL (4.5-12.0)
[2024-08-02 07:46] LABS: Eosinophils # (auto) 0.1 10 ^3/uL (0-0.8); Hematocrit 25.7 % (36.0-46.0); Hemoglobin 8.9 g/dL (12.2-16.2); Monocytes # (auto) 0.2 10 ^3/uL (0-1.3); Neutrophils # (auto) 2.5 10 ^3/uL (1.6-8.6); White Blood Cell 4.1 10^3/uL (4.4-10.8)
[2024-08-02 07:47] LABS: Chloride 106 mmol/L (98-107); Potassium 3.9 mmol/L (3.5-5.1); Sodium 136 mmol/L (136-145)
[2024-08-02 07:48] LABS: Anion Gap 7 (5-15); Carbon Dioxide 23 mmol/L (20-31)
[2024-08-02 07:49] LABS: Basophils # (auto) 0.1 10 ^3/uL (0-0.2); Basophils % (auto) 2.5 % (0.0-2.0); Eosinophils % (auto) 3.2 % (0.0-7.0); Lymphocytes # (auto) 1.1 10 ^3/uL (0.4-5.4); Lymphocytes % (auto) 27.1 % (10.0-50.0); Mean Corpuscular Hemoglobin 36.8 pg (28.0-32.0); Mean Corpuscular Hgb Conc. 34.8 g/dL (32.0-36.0); Mean Corpuscular Volume 105.7 fL (80.0-100.0); Monocytes % (auto) 4.8 % (0.0-12.0); Neutrophils % (auto) 62.4 % (37.0-80.0); Nucleated Red Blood Cells % 0.2 %; Platelet Count (auto) 232 10^3/uL (140-450); Red Blood Cells 2.43 10^6/uL (4.0-5.20); Red Cell Distribution Width 17.6 % (11.8-14.3)
[2024-08-02 07:53] LABS: BUN/Creatinine Ratio 11.5 (10.0-20.0); Blood Urea Nitrogen 10 mg/dL (9-23); Glucose 83 mg/dL (74-106)
[2024-08-02] MEDS: CIPROFLOXACIN 400MG/200ML 200 ML IV ONE (09:01)
--- NOTE | 2024-08-02 14:53 | DVHPN2 ---
Consult Progress Note Subjective Other Systems: Patient remains in A-paced on food processor Objective vital signs Vital Sign Date Time Temp Pulse Resp B/P (MAP) Pulse Ox O2 Delivery O2 Flow Rate FiO2 08/02/24 14:34 135/50 08/02/24 14:33 70 08/02/24 09:00 97.9 18 97 97.9 08/02/24 08:00 Room Air* 0 21 Total Intake and Output 08/01/24 08/01/24 08/02/24 15:00 23:00 07:00 Intake Total 100 ml 800 ml Balance 100 ml 800 ml medications Current Medications Medications Dose Ordered Sig/Miranda Route Start Time Stop Time Status Last Admin Dose Admin Atorvastatin Calcium 40 mg HS PO 08/01/24 22:00 08/01/24 21:29 40 MG Levothyroxine Sodium 88 mcg QAM@0600 PO 08/01/24 06:00 08/02/24 05:45 88 MCG Apixaban 5 mg BID PO 08/01/24 10:00 08/02/24 09:30 5 MG Amiodarone HCl 200 mg DAILY PO 08/01/24 10:00 08/02/24 09:30 200 MG Ondansetron HCl 4 mg Q4HP PRN IV 08/01/24 00:15 08/01/24 00:40 4 MG Acetaminophen 650 mg Q6HP PRN PO 08/01/24 00:15 08/01/24 06:10 650 MG Nitroglycerin 0.4 mg Q5MINP PRN SL 08/01/24 00:15 Morphine Sulfate 2 mg Q30M PRN IV 08/01/24 00:15 Hold Losartan Potassium 25 mg DAILY PO 08/01/24 10:00 08/02/24 14:34 25 MG Metoprolol Succinate 25 mg DAILY PO 08/01/24 10:00 08/02/24 14:33 25 MG Sucralfate 1 gm BID@0600,2200 PO 08/01/24 22:00 08/02/24 05:46 1 GM Pantoprazole Sodium 40 mg DAILY@0600 PO 08/02/24 06:00 08/02/24 05:45 40 MG Acetaminophen/ Hydrocodone Bitart 1 tab Q4HPRN PRN PO 08/01/24 10:30 08/02/24 09:36 1 TAB Ciprofloxacin 200 ml @ 200 mls/hr Q12HR IV 08/02/24 22:00 Examination: GENERAL:Abnormal (Generalized weakness), LUNGS:Normal, CVS:Normal, NEURO:Normal laboratory and microbiology Laboratory Tests 08/02/24 06:44 Test 08/02/24 06:44 Range/Units Serum Glucose 83 74-106 mg/dL Problem List/Assessment/Plan Problem List/Assessment/Plan Syncope and collapse Likely paroxysmal atrial fibrillation, on Eliquis/amiodarone therapy Presence of dual-chamber pacemaker ([employer], 2020) History of massive CVA with left-sided hemiparesis Severe hypokalemia, resolved Hypertension Dyslipidemia Hypothyroidism Anemia Obesity Plan/Recommendation (Dr. King): * Echocardiogram from 12/26/2023 revealed LVEF 65%. Mild LVH mild LV diastolic dysfunction. * Bilateral carotid duplex from 06/30/2024 revealed no hemodynamically significant stenosis noted in the bilateral carotid system. * Nuclear stress test from 05/24/2023 revealed ECG findings negative for ischemia and nuclear findings negative for ischemia. * Repeat EKG in AM to assess QTc interval Case discussed with . Pacemaker interrogation completed. reviewed, no significant events noted. Spoke with [employer] pacemaker manufacturer's service representative, Rayne, who also states that the interrogation report shows no recent significant events.[id number] Score 6 points, HAS-BLED Score 2 points.Continue Eliquis, amiodarone, and metoprolol therapy. Thyroid workup per primary care team. Continue neurological recommendations. Rest of plan per clinical course. Thank you for allowing us to participate in this patient's care. Please call if you have any questions or concerns. In the meantime, replete electrolytes as necessary. This medical document was created using an electronic medical record system with voice recognition software and computerized dictation system. Although this document has been carefully reviewed, there might still be some phonetic and typographical errors. Occasional wrong-word or ``sound-alike substitutions may have occurred due to the inherent limitations of voice recognition software. These areas are purely typographical due to imperfections of the software programs and do not reflect any compromise in the patient's medical care. Please read the chart carefully and recognize, using context, where these substitutions have occurred. Plan discussed with: Patient, Spouse Dietary Evaluation Review Comments: 1) Ensure Enlive 240ml BID 2) Brock 1 pk BID 3) Continue current plan of care Expected Outcomes/Goals: To meet >75% estimated needs Fu 3-5 days Date of Service: Aug 02, 2024 Billing Provider: TAWNY WAY Common Visit Codes: [id number] INP/OBS CARE(HIGH) TAWNY WAY Aug 02, 2024 14:53
--- NOTE | 2024-08-02 17:09 | DVHPNRES ---
Progress Note Date Seen: Aug 02, 2024 Resident Creating Document: SUGEY SCHULTZ RESIDENT Medical Necessity Reason Pt with a Central, PICC or Fol: Yes Subjective Review of Systems Patient was seen and examined on the bedside. She is alert,oriented x3. Patient is bed-bound for last 1 and half year. Complain of epigastric pain, dysuria. No other active complaint. Objective vital signs Vital Sign Date Time Temp Pulse Resp B/P (MAP) Pulse Ox O2 Delivery O2 Flow Rate FiO2 08/02/24 14:34 135/50 08/02/24 14:33 70 08/02/24 09:00 97.9 18 97 97.9 08/02/24 08:00 Room Air* 0 21 Total Intake and Output 08/01/24 08/01/24 08/02/24 15:00 23:00 07:00 Intake Total 100 ml 800 ml Balance 100 ml 800 ml medications Current Medications Medications Dose Ordered Sig/Miranda Route Start Time Stop Time Status Last Admin Dose Admin Atorvastatin Calcium 40 mg HS PO 08/01/24 22:00 08/01/24 21:29 40 MG Levothyroxine Sodium 88 mcg QAM@0600 PO 08/01/24 06:00 08/02/24 05:45 88 MCG Apixaban 5 mg BID PO 08/01/24 10:00 08/02/24 09:30 5 MG Amiodarone HCl 200 mg DAILY PO 08/01/24 10:00 08/02/24 09:30 200 MG Ondansetron HCl 4 mg Q4HP PRN IV 08/01/24 00:15 08/01/24 00:40 4 MG Acetaminophen 650 mg Q6HP PRN PO 08/01/24 00:15 08/01/24 06:10 650 MG Nitroglycerin 0.4 mg Q5MINP PRN SL 08/01/24 00:15 Morphine Sulfate 2 mg Q30M PRN IV 08/01/24 00:15 Hold Losartan Potassium 25 mg DAILY PO 08/01/24 10:00 08/02/24 14:34 25 MG Metoprolol Succinate 25 mg DAILY PO 08/01/24 10:00 08/02/24 14:33 25 MG Sucralfate 1 gm BID@0600,2200 PO 08/01/24 22:00 08/02/24 05:46 1 GM Pantoprazole Sodium 40 mg DAILY@0600 PO 08/02/24 06:00 08/02/24 05:45 40 MG Acetaminophen/ Hydrocodone Bitart 1 tab Q4HPRN PRN PO 08/01/24 10:30 08/02/24 09:36 1 TAB Ciprofloxacin 200 ml @ 200 mls/hr Q12HR IV 08/02/24 22:00 Examination Physical examination: General Appearance: Alert, Oriented X3, Cooperative, mild distress HEENT: Atraumatic, PERRLA, EOMI, Mucous membrane moist/pink Respiratory: Clear to auscultation, Normal air movement Cardiovascular: Regular rate, Normal S1, Normal S2, No murmurs, no chest wall tenderness Abdominal: Normal bowel sounds, Soft, No tenderness, No hepatosplenomegaly, No masses Extremities: No clubbing, No cyanosis, No edema, Normal pulses, No tenderness/swelling Skin: No rashes, No breakdown, No significant lesion Neuro: Bed bound, Lt sided weakness, Normal speech, Strength at 5/5 X2 ext, Normal tone, Sensation intact, grossly intact cranial nerves. Psych/Mental Status: Mental status NL, Mood NL laboratory and microbiology Laboratory Tests 08/02/24 06:44 Test 08/02/24 06:44 Range/Units Serum Glucose 83 74-106 mg/dL Microbiology Date/Time Source Procedure Growth Status 08/01/24 06:19 Nose MRSA Screen - Final Complete Labs and/or images reviewed: Labs reviewed by me, Image(s) reviewed by me Problem List/Assessment/Plan Problem List/Assessment/Plan Assessment and plan: # Syncope and collapse, rule out tachyarrhythmia # Paroxysmal atrial fibrillation with secondary hypercoagulable state # Status post dual-chamber pacemaker # History of massive CVA with left-sided hemiparesis # Hypertensive heart disease # Dyslipidemia - 12 lead electrocardiogram with an atrial paced rhythm with an associated right bundle branch block, an unremarkable chest X-Ray, a head CT WO Contrast revealing non-acute findings and a chronic large right MCA territory infarct, record from [place] - [id number] score 6 and HAS-BLED score 2 - Keep potassium above 4 and magnesium above 2 - Echo on 0 revealed LVEF 65%, mild LVH and mild LV diastolic dysfunction - Bilateral carotid duplex from 06/27 showed no hemodynamically significant stenosis noted in the bilateral carotid system - Nuclear stress test from 05/29 revealed nuclear findings negative for ischemia - Echo pending - continue losartan 25 mg daily, metoprolol succinate 25 mg daily, amiodarone 200 mg daily and Eliquis 5 mg b.i.d. - continue atorvastatin 40 mg at HS - Pacemaker interrogation done. # Acute complicated cystitis - U/A was consistent with UTI - ordered urine bacterial culture - IV ciprofloxacin 500 mg b.i.d. # Chronic hypothyroidism with elevated TSH - Increased levothyroxine to 88 mcg p.o. at q.a.m. and we will monitor T4 level. # Severe hypokalemia - Potassium was 2.5 at [place] and it was replaced - potassium 50 mEq p.o. once - monitor BMP # Chronic macrocytic anemia likely due to alcohol-induced - counseled patient regarding alcohol abuse and rehabilitation # GERD - Protonix 40 mg p.o. daily and Carafate 1 g b.i.d. # DVT prophylaxis - patient is on Eliquis Plan discussed with Dr. Guy Plan discussed with: Patient, Other (RN) My Orders My Orders Orders - SUGEY SCHULTZ RESIDENT Procedure Category Date Status Time Ciprofloxacin PHA 08/02/24 In Process 400mg/200ml (Cipro Iv) 22:00 Urine Bacterial VLADIMIR 08/02/24 Uncollected Culture 06:40 Dietary Evaluation Review Comments: 1) Ensure Enlive 240ml BID 2) Brock 1 pk BID 3) Continue current plan of care Expected Outcomes/Goals: To meet >75% estimated needs Fu 3-5 days Addendum Addendum Addendum I was physically present for the montes [place] oca portions of the service provided to patient by THE RESIDENT. I have reviewed the documentation, discussed the case with resident and agree with the resident's documentation except as noted. Also the patient's clinical case was discussed with the patient's nurse. This medical document was created using an electronic medical record system with computerized dictation system. Although this document has been carefully reviewed, there might still be some phonetic and typographical errors. These areas are purely typographical due to imperfections of the software programs, and do not reflect any compromise in the patient's medical care. Late signature. Date of Service: Aug 02, 2024 Billing Provider: NIC GUY MD Common Visit Codes: [id number] INP/OBS CARE(HIGH) SUGEY SCHULTZ RESIDENT Aug 02, 2024 17:09 NIC GUY MD August 04, 2024 04:06
[2024-08-02] MEDS: CIPROFLOXACIN 400MG/200ML 200 ML IV SCH (21:28)
[2024-08-03 01:21] VITALS: BP 119/45; PULSE 70; RESP 18; TEMP 98.4; O2SAT 100
[2024-08-03 05:18] VITALS: BP 120/38; PULSE 70; RESP 17; TEMP 98.3; O2SAT 100
[2024-08-03 08:00] VITALS: PULSE 70; RESP 18
[2024-08-03 09:00] VITALS: BP 125/81; PULSE 70; RESP 17; TEMP 97.7; O2SAT 98
[2024-08-03] MEDS ORDERED: NITR-52 PO (09:26)
[2024-08-03] MEDS: KETOROLAC TROMETH 30 MG/ML 1ML VIAL IV ONE (09:34)
[2024-08-03 10:10] LABS: Basophils # (auto) 0 10 ^3/uL (0-0.2); Eosinophils # (auto) 0.1 10 ^3/uL (0-0.8); Neutrophils # (auto) 2.8 10 ^3/uL (1.6-8.6); Nucleated Red Blood Cells % 0.1 %
[2024-08-03 10:13] LABS: Basophils % (auto) 1.1 % (0.0-2.0); Eosinophils % (auto) 1.7 % (0.0-7.0); Hematocrit 26.4 % (36.0-46.0); Hemoglobin 9.1 g/dL (12.2-16.2); Mean Corpuscular Hemoglobin 36.3 pg (28.0-32.0); Mean Corpuscular Hgb Conc. 34.5 g/dL (32.0-36.0); Mean Corpuscular Volume 105.4 fL (80.0-100.0); Monocytes # (auto) 0.2 10 ^3/uL (0-1.3); Monocytes % (auto) 5.3 % (0.0-12.0); Neutrophils % (auto) 66.9 % (37.0-80.0); Platelet Count (auto) 237 10^3/uL (140-450); Red Cell Distribution Width 17.3 % (11.8-14.3); White Blood Cell 4.2 10^3/uL (4.4-10.8)
[2024-08-03 10:19] LABS: Chloride 104 mmol/L (98-107); Potassium 3.6 mmol/L (3.5-5.1)
[2024-08-03 10:20] LABS: Anion Gap 6 (5-15); Calcium 8.8 mg/dL (8.7-10.4); Carbon Dioxide 24 mmol/L (20-31); Sodium 134 mmol/L (136-145)
[2024-08-03 10:25] LABS: BUN/Creatinine Ratio 10.5 (10.0-20.0); Blood Urea Nitrogen 11 mg/dL (9-23); Glucose 99 mg/dL (74-106)
[2024-08-03 11:58] VITALS: BP 125/81; PULSE 70; RESP 18; TEMP 36.8; O2SAT 97
[2024-08-03 13:00] VITALS: BP 128/43; PULSE 70; RESP 16; TEMP 97.5; O2SAT 98
--- NOTE | 2024-08-03 13:24 | DVHSR ---
APPROVED REPORT EXAM: Two-dimensional and M-mode echocardiogram with Doppler and color Doppler. Blood Pressure: 138/76 mmHg INDICATION Syncope diastolic HF RISK FACTORS Height: 61, Weight: 155 DIMENSIONS LVDd4.0 (3.8-5.7cm)LA (2D) (1.9-4.0cm)Aortic Root2.8 (2.0-3.7cm) LVDs3.0 (2.5-4.0cm)LA (MM) (1.9-4.0cm)Aortic Cusp Exc1.4 (1.5-2.0cm) EF (%) 50.0 (55-70%)Rt. Atrium (1.9-4.0cm)Asc. Aorta cm IVSd1.3 (0.7-1.1cm)RV (D) (1.8-2.4cm) PWd1.3 (0.7-1.1cm) Mitral Valve MitralMitral Stenosis E/A ratio0.02D MVAcm2 Aortic Valve Aortic ValveAortic Stenosis LVOT Diameter1.9 (1.8-2.4cm)Doppler AVAcm2 Other Information Technically limited study due to body habitus and patient position. Limited due to patient having a double mastectomy and patient laying flat on her back. Conclusion Technically good study. Sinus rhythm. Concentric LVH. Valves appear to be structurally normal. Left ventricular function appears preserved. EF is about 55% with normal RV function. Dopplers unremarkable. No pericardial effusion masses or vegetations.
--- NOTE | 2024-08-03 18:47 | DVHDSRES ---
Discharge Summary Date of Admission Resident Creating Document: SUGEY SCHULTZ RESIDENT Jul 31, 2024 at 22:41 Date of Discharge: August 03, 2024 Admitting Diagnosis Syncope and collapse, rule out tachyarrhythmia Wounds: Sacral erythema and skin tear Labs/Diagnostic Data: Laboratory Results Test 08/03/24 09:49 08/02/24 06:44 08/01/24 16:30 08/01/24 08:56 White Blood Count 4.2 10^3/uL (4.4-10.8) Red Blood Count 2.50 10^6/uL (4.0-5.20) Hemoglobin 9.1 g/dL (12.2-16.2) Hematocrit 26.4 % (36.0-46.0) Mean Corpuscular Volume 105.4 fL (80.0-100.0) Mean Corpuscular Hemoglobin 36.3 pg (28.0-32.0) Mean Corpuscular Hemoglobin Concent 34.5 g/dL (32.0-36.0) Red Cell Distribution Width 17.3 % (11.8-14.3) Platelet Count 237 10^3/uL (140-450) Mean Platelet Volume 7.7 fL (6.9-10.8) Neutrophils (%) (Auto) 66.9 % (37.0-80.0) Lymphocytes (%) (Auto) 25.0 % (10.0-50.0) Monocytes (%) (Auto) 5.3 % (0.0-12.0) Eosinophils (%) (Auto) 1.7 % (0.0-7.0) Basophils (%) (Auto) 1.1 % (0.0-2.0) Neutrophils # (Auto) 2.8 10 ^3/uL (1.6-8.6) Lymphocytes # (Auto) 1.0 10 ^3/uL (0.4-5.4) Monocytes # (Auto) 0.2 10 ^3/uL (0-1.3) Eosinophils # (Auto) 0.1 10 ^3/uL (0-0.8) Basophils # (Auto) 0 10 ^3/uL (0-0.2) Nucleated Red Blood Cells 0.1 % Sodium Level 134 mmol/L (136-145) Potassium Level 3.6 mmol/L (3.5-5.1) Chloride Level 104 mmol/L (98-107) Carbon Dioxide Level 24 mmol/L (20-31) Anion Gap 6 (5-15) Blood Urea Nitrogen 11 mg/dL (9-23) Creatinine 1.05 mg/dL (0.550-1.02) Glomerular Filtration Rate Calc 56 mL/min (>90) BUN/Creatinine Ratio 10.5 (10.0-20.0) Serum Glucose 99 mg/dL (74-106) Calcium Level 8.8 mg/dL (8.7-10.4) Free Thyroxine (T4) Calculated 1.74 ng/dL (0.89-1.76) Urine Color [place] (Yellow) Urine Clarity Ex.turbid (Clear) Urine pH 6.0 (5.0-9.0) Urine Specific [place] 1.025 (1.001-1.035) Urine Protein 1+ (Negative) Urine Ketones 1+ (Negative) Urine Blood 3+ /uL (Negative) Urine Nitrite Negative (Negative) Urine Bilirubin 1+ (Negative) Urine Urobilinogen 4 mg/dL (Negative) Urine Leukocyte Esterase 2+ /uL (Negative) Urine RBC 82 /hpf (0 - 4) Urine Microscopic WBC 59 /HPF (0-5) Urine Squamous Epithelial Cells Mod /hpf (<5) Urine Amorphous Crystals Few /hpf (None Seen) Urine Bacteria Few /hpf (None Seen) Urine Mucus Few (None Seen) Urine Glucose Normal mg/dL (Normal) Free Thyroxine Index 6.9 (1.2-4.9) Thyroxine (T4) 18.2 ug/dL (4.5-12.0) Triiodothyronine (T3) Uptake 38 % (24-39) Test 08/01/24 00:44 D-Dimer, Quantitative 0.32 mg/L FEU (0.0-0.49) Magnesium Level 1.8 mg/dL (1.6-2.6) Total Bilirubin 1.0 mg/dL (0.2-1.0) Aspartate Amino Transferase (AST) 66 U/L (13-40) Alanine Aminotransferase (ALT) 40 U/L (7-40) Alkaline Phosphatase 97 U/L (46-116) Troponin I High Sensitivity 12 ng/L (</=34) Total Protein 5.7 g/dL (5.7-8.2) Albumin 3.2 g/dL (3.2-4.8) Thyroid Stimulating Hormone (TSH) 8.80 uIU/mL (0.55-4.78) Other Laboratory Tests 08/03/24 09:49 Brief Hx & Hospital Course: This is a 73-year-old female transferred from [facility] for continuity of care and disposition. Patient presented to outside facility with complaints of syncopal episode. Patient apparently became unresponsive for approximately 15 minutes in front of family members. EN route patient had 30 seconds of ventricular tachycardia. Currently patient is alert and oriented. Does not recall any of the events. She does have a history of CVA with left- sided deficits. Denies chest pain, palpitations, shortness for breath. Hospital course: Initial 12 lead electrocardiogram with an atrial paced rhythm with an associated right bundle branch block, an unremarkable chest X-Ray, a head CT WO Contrast revealing non-acute findings and a chronic large right MCA territory infarct, record from [place]. [id number] score 6 and HAS-BLED score 2, Echo revealed LVEF 55%, normal RV function. Bilateral carotid duplex from 06/27 showed no hemodynamically significant stenosis noted in the bilateral carotid system. Nuclear stress test from 05/29 revealed nuclear findings negative for ischemia. Pacemaker interrogation was done. U/A was consistent with UTI and patient was treated with IV ciprofloxacin 500 mg b.i.d. and continued losartan 25 mg daily, metoprolol succinate 25 mg daily, amiodarone 200 mg daily and Eliquis 5 mg b.i.d., atorvastatin 40 mg at HS. was also on board and cleared the patient for discharge. Patient is being discharged to home with hypertrophic 100 mg b.i.d. for 5 days and advised to continue home medications. patient was also advised to follow up with DC clinic in 1 week and Cardiology in 2 weeks. Physical examination on discharge: General Appearance: Alert, Oriented X3, Cooperative, mild distress HEENT: Atraumatic, PERRLA, EOMI, Mucous membrane moist/pink Respiratory: Clear to auscultation, Normal air movement Cardiovascular: Regular rate, Normal S1, Normal S2, No murmurs, no chest wall tenderness Abdominal: Normal bowel sounds, Soft, No tenderness, No hepatosplenomegaly, No masses Extremities: No clubbing, No cyanosis, No edema, Normal pulses, No tenderness/swelling Skin: No rashes, No breakdown, No significant lesion Neuro: Bed bound, Lt sided weakness, Normal speech, Strength at 5/5 X2 ext, Normal tone, Sensation intact, grossly intact cranial nerves. Psych/Mental Status: Mental status NL, Mood N Discussed with Dr. Guy Consults/Reason for consult Cardiology was consulted for syncope Operations or Procedures EXAM: Two-dimensional and M-mode echocardiogram with Doppler and color Doppler. Blood Pressure: 138/76 mmHg INDICATION Syncope diastolic HF RISK FACTORS Height: 61, Weight: 155 DIMENSIONS LVDd 4.0 (3.8-5.7cm) LA (2D) (1.9-4.0cm) Aortic Root 2.8 (2.0- 3.7cm) LVDs 3.0 (2.5-4.0cm) LA (MM) (1.9-4.0cm) Aortic Cusp Exc 1.4 (1.5- 2.0cm) EF (%) 50.0 (55-70%) Rt. Atrium (1.9-4.0cm) Asc. Aorta cm IVSd 1.3 (0.7-1.1cm) RV (D) (1.8-2.4cm) PWd 1.3 (0.7-1.1cm) Mitral Valve Mitral Mitral Stenosis E/A ratio 0.0 2D MVA cm2 Aortic Valve Aortic Valve Aortic Stenosis LVOT Diameter 1.9 (1.8-2.4cm) Doppler KAREN cm2 Other Information Technically limited study due to body habitus and patient position. Limited due to patient having a double mastectomy and patient laying flat on her back. Conclusion Technically good study. Sinus rhythm. Concentric LVH. Valves appear to be structurally normal. Left ventricular function appears preserved. EF is about 55% with normal RV function. Dopplers unremarkable. No pericardial effusion masses or vegetations. Condition at Discharge: Stable Final Diagnosis/Problems List # Syncope and collapse, rule out tachyarrhythmia # Paroxysmal atrial fibrillation with secondary hypercoagulable state # Status post dual-chamber pacemaker # History of massive CVA with left-sided hemiparesis # Hypertensive heart disease # Dyslipidemia # Acute complicated cystitis # Chronic hypothyroidism # Severe hypokalemia resolved # Chronic macrocytic anemia likely due to alcohol-induced # GERD Discharge Disposition: Home Discharge Instruct/Medications Diet: Cardiac 2g Na,low cholest Activity: No Restrictions, As Tolerated Follow Up/Referral: Follow up with dC clinic in 1 week. Follow up with cardiology in 2 weeks Medications: As per EMR Discharge Statement: "Patient was advised to return to the ER or call 911 if any headaches, dizziness, shortness of breath, chest pain, abdominal pain, bleeding, fevers, or worsening of medical condition. Patient was counseled about treatment plan, medications, possible side effects, patientverbalized understanding. All questions were answered to the best of my ability. This discharge took greater then 30 minutes in planning, reviewing documentation, counseling the patient, and discussing with other team members." ASSESSMENT ASSESSMENT Assessment # Syncope and collapse, rule out tachyarrhythmia # Paroxysmal atrial fibrillation with secondary hypercoagulable state # Status post dual-chamber pacemaker # History of massive CVA with left-sided hemiparesis # Hypertensive heart disease # Dyslipidemia # Acute complicated cystitis # Chronic hypothyroidism # Severe hypokalemia resolved # Chronic macrocytic anemia likely due to alcohol-induced # GERD Addendum Addendum Addendum I was physically present for the [place]es [place] oca portions of the service provided to patient by THE RESIDENT. I have reviewed the documentation, discussed the case with resident and agree with the resident's documentation except as noted. Also the patient's clinical case was discussed with the patient's nurse. This medical document was created using an electronic medical record system with computerized dictation system. Although this document has been carefully reviewed, there might still be some phonetic and typographical errors. These areas are purely typographical due to imperfections of the software programs, and do not reflect any compromise in the patient's medical care. Late signature. Date of Service: August 03, 2024 Billing Provider: NIC GUY MD Common Visit Codes: [id number] DISCH DAY >30min SUGEY SCHULTZ RESIDENT August 03, 2024 18:47 NIC GUY MD August 04, 2024 04:08
== END 2024-08-03 15:20 | disposition home or self-care (01) | DRG 309 ==
LOC: TELE-WESTW 22:41
PROVIDERS: ADMIT Internal Medicine; ATTEND Internal Medicine
PROC: 4B02XSZ Measurement of Cardiac Pacemaker, External Approach (ICD-10-PCS; 2024-07-31)
PROC: 05H933Z Insertion of Infusion Device into Right Brachial Vein, Percutaneous Approach (ICD-10-PCS; principal; 2024-08-02)
PROC: B54MZZA Ultrasonography of Right Upper Extremity Veins, Guidance (ICD-10-PCS; 2024-08-02)
DX: R00.0 Tachycardia, unspecified (principal); D68.69 Other thrombophilia; I48.19 Other persistent atrial fibrillation; N30.00 Acute cystitis without hematuria; I69.354 Hemiplegia and hemiparesis following cerebral infarction affecting left non-dominant side; E87.6 Hypokalemia; E03.9 Hypothyroidism, unspecified; E78.5 Hyperlipidemia, unspecified; K21.9 Gastro-esophageal reflux disease without esophagitis; I10 Essential (primary) hypertension; E66.9 Obesity, unspecified; D53.9 Nutritional anemia, unspecified; F10.10 Alcohol abuse, uncomplicated; Z90.49 Acquired absence of other specified parts of digestive tract; Z88.5 Allergy status to narcotic agent; Z88.1 Allergy status to other antibiotic agents; Z95.0 Presence of cardiac pacemaker; Z85.3 Personal history of malignant neoplasm of breast; Z90.11 Acquired absence of right breast and nipple; Z83.3 Family history of diabetes mellitus; Z82.49 Family history of ischemic heart disease and other diseases of the circulatory system; Z80.0 Family history of malignant neoplasm of digestive organs; Z79.01 Long term (current) use of anticoagulants; Z79.899 Other long term (current) drug therapy; Z68.29 Body mass index [BMI] 29.0-29.9, adult; Y90.9 Presence of alcohol in blood, level not specified
CPT/HCPCS: 36415; 80048; 80053; 81001; 83735; 84439; 84443; 84484; 85025; 85379; 87081; 93306; G0378; J1885; J2405

== ENCOUNTER → 2024-08-14 | Outpatient (CLI) | payer OTHER ==
[~2024-08-14] MED LIST changes: +FERR325T24 PO; +NITR-52 PO; -NYS5LQ MT
[2024-08-14 15:10] LABS: Basophils # (auto) 0 10 ^3/uL (0-0.2); Eosinophils # (auto) 0.1 10 ^3/uL (0-0.8); Hematocrit 21.1 % (36.0-46.0); Hemoglobin 7.3 g/dL (12.2-16.2); Lymphocytes # (auto) 1.2 10 ^3/uL (0.4-5.4); Mean Corpuscular Hgb Conc. 34.6 g/dL (32.0-36.0); Monocytes # (auto) 0.2 10 ^3/uL (0-1.3); Neutrophils # (auto) 2.9 10 ^3/uL (1.6-8.6); Nucleated Red Blood Cells % 0.1 %; Red Blood Cells 2.03 10^6/uL (4.0-5.20); White Blood Cell 4.4 10^3/uL (4.4-10.8)
[2024-08-14 15:13] LABS: Basophils % (auto) 1.1 % (0.0-2.0); Eosinophils % (auto) 1.7 % (0.0-7.0); Lymphocytes % (auto) 26.9 % (10.0-50.0); Mean Corpuscular Hemoglobin 35.9 pg (28.0-32.0); Mean Corpuscular Volume 103.5 fL (80.0-100.0); Monocytes % (auto) 4.4 % (0.0-12.0); Neutrophils % (auto) 65.9 % (37.0-80.0); Platelet Count (auto) 223 10^3/uL (140-450); Red Cell Distribution Width 18.8 % (11.8-14.3)
[2024-08-14 15:40] LABS: Alanine Aminotransferase 18 U/L (7-40); Alkaline Phosphatase 87 U/L (46-116); Anion Gap 8 (5-15); Aspartate Aminotransferase 16 U/L (13-40); BUN/Creatinine Ratio 28.8 (10.0-20.0); Bilirubin, Total 0.4 mg/dL (0.2-1.0); Blood Urea Nitrogen 19 mg/dL (9-23); Carbon Dioxide 23 mmol/L (20-31); Chloride 107 mmol/L (98-107); Glucose 105 mg/dL (74-106); Potassium 3.8 mmol/L (3.5-5.1); Sodium 138 mmol/L (136-145)
[2024-08-14 15:51] LABS: Calcium 8.3 mg/dL (8.7-10.4); Total Protein 4.8 g/dL (5.7-8.2)
== END | disposition home or self-care (01) ==
LOC: LAB 14:50
PROVIDERS: ATTEND Family Medicine
DX: I63.9 Cerebral infarction, unspecified (principal); E87.6 Hypokalemia; R79.9 Abnormal finding of blood chemistry, unspecified
CPT/HCPCS: 36415; 80053; 85025

== ENCOUNTER 2024-09-10 23:46 | Inpatient (IN) | payer OTHER ==
[~2024-09-10] VITALS: Ht 154.9 cm; Wt 79.5 kg
[2024-09-11] VITALS (94 sets, daily range): BP systolic 83–143; BP diastolic 32–69; PULSE 66–142; RESP 10–25; TEMP 97.5–100.4; O2SAT 88–100
[2024-09-11] MEDS: NOREPINEPHRINE 8 MG/250ML KIT 250 ML IV SCH ×2 (00:15→19:00)
[2024-09-11] MEDS ORDERED: NITROGLYCERIN 0.4 MG SL TAB SL PRN (00:30)
[2024-09-11] MEDS ORDERED: MORPHINE SULFATE INJ 2 MG/ml SYRG IV PRN (00:30)
[2024-09-11] MEDS ORDERED: VANCOMYCIN PER PHARMACY 0 MG IV SCH (01:15)
[2024-09-11] MEDS: ATORVASTATIN 20 MG TAB PO ONE (01:15)
[2024-09-11] MEDS: ASPirin 81 mg TAB NG SCH (01:30)
[2024-09-11 02:03] LABS: Basophils # (auto) 0.1 10 ^3/uL (0-0.2); Basophils % (auto) 0.7 % (0.0-2.0); Eosinophils # (auto) 0 10 ^3/uL (0-0.8); Eosinophils % (auto) 0.2 % (0.0-7.0); Hematocrit 29.5 % (36.0-46.0); Hemoglobin 9.9 g/dL (12.2-16.2); Lymphocytes # (auto) 1.3 10 ^3/uL (0.4-5.4); Lymphocytes % (auto) 14.9 % (10.0-50.0); Mean Corpuscular Hemoglobin 33.3 pg (28.0-32.0); Mean Corpuscular Hgb Conc. 33.4 g/dL (32.0-36.0); Mean Corpuscular Volume 99.5 fL (80.0-100.0); Monocytes # (auto) 0.6 10 ^3/uL (0-1.3); Monocytes % (auto) 6.8 % (0.0-12.0); Neutrophils # (auto) 6.6 10 ^3/uL (1.6-8.6); Neutrophils % (auto) 77.4 % (37.0-80.0); Nucleated Red Blood Cells % 0.1 %; Platelet Count (auto) 225 10^3/uL (140-450); Red Blood Cells 2.96 10^6/uL (4.0-5.20); Red Cell Distribution Width 15.6 % (11.8-14.3); White Blood Cell 8.5 10^3/uL (4.4-10.8)
[2024-09-11 02:18] LABS: INR 1.3 (0.9-1.15); Partial Thromboplastin Time 45.9 SEC (24.5-34.5); Prothrombin Time 13.4 sec (9.3-11.8)
[2024-09-11 02:22] LABS: Alanine Aminotransferase 27 U/L (7-40); Albumin 3.3 g/dL (3.2-4.8); Alkaline Phosphatase 118 U/L (46-116); Anion Gap 11 (5-15); Aspartate Aminotransferase 34 U/L (13-40); BUN/Creatinine Ratio 25.9 (10.0-20.0); Bilirubin, Total 0.6 mg/dL (0.2-1.0); Blood Urea Nitrogen 30 mg/dL (9-23); Calcium 8.7 mg/dL (8.7-10.4); Carbon Dioxide 19 mmol/L (20-31); Chloride 114 mmol/L (98-107); Glucose 95 mg/dL (74-106); Potassium 3.9 mmol/L (3.5-5.1); Sodium 144 mmol/L (136-145); Total Protein 5.7 g/dL (5.7-8.2)
[2024-09-11 02:30] LABS: COVID19 ANTIGEN SOFIA FIA NEGATIVE (NEGATIVE)
[2024-09-11] MEDS: traMADol HCL 50 MG TAB NG PRN (03:48)
--- NOTE | 2024-09-11 04:04 | DVHHPRES ---
History of Present Illness Resident Creating Document: RUBEN DOW RESIDENT History of Present Illness Ms. Posada, a 73-year-old female medical history is significant for atrial fibrillation, stroke with residual left-sided deficits, breast cancer, hypertension, dual chamber Pacemaker, appendectomy, cholecystectomy, mastectomy transferred from [facility] for continuity of care and further disposition following a visit with acute onset shortness of breath, b/l pneumonia likely aspirational, septic shock needing Levophed support. She denies associated symptoms such as chest pain, palpitations, or shortness of breath. Her . Upon arrival, the patient was alert and oriented but had no recollection of further syncopal event or aspiration. PCP Dr. Vasquez, was accompanied by her daughter who provided collateral history and herself is a PA. The patient is directly admitted at the ICU level of care for further workup and management. She had stroke like attack with syncope 3 weeks ago for which she was taken care in the hospital, she has new onset of right sided hemiparesis and speech impairment since then. The daughter mentioned no interruption on the anticoagulation. Past Medical History AFib, breast cancer, hypertension, CVA Past Surgical History Pacemaker, appendectomy, cholecystectomy, mastectomy Family History: Other (non contributary ) Smoke: No ALCOHOL: none Drugs: None Lives: with Family ( who helps her, has a caregiver who comes twice a week) Domestic Violence: Neg Review of Systems Constitutional: Yes: Weakness; No: Fever, Chills, Sweats, Malaise, Other Eyes: No: Pain, Vision change, Conjunctivae inflammation, Eyelid inflammation, Other, Redness ENT: No: Ear pain, Ear discharge, Nose pain, Nose discharge, Nose congestion, Mouth pain, Mouth swelling, Throat pain, Throat swelling, Other Respiratory: Cough, Shortness of breath, SOB with excertion, Sputum; No: Dry, Wheezing, Hemoptysis, Pleuritic Pain, Wheezing, Other Cardiovascular: No: Chest Pain, Palpitations, Orthopnea, Paroxysmal Noc. Dyspnea, Edema, Lt Headedness, Other Gastrointestinal: No: Nausea, Vomiting, Abdominal Pain, Diarrhea, Constipation, Melena, Hematochezia, Other Genitourinary: No Dysuria, No Frequency, No Incontinence, No Hematuria, No Retention, No Other Musculoskeletal: No: other, neck pain, shoulder pain, arm pain, back pain, hand pain, leg pain, foot pain Skin: Lesions; No: Rash, Jaundice, Bruising, Other Neurological: Weakness, Change in speech; No: Numbness, Incoordination, Confusion, Seizures, Other Allergies: Coded Allergies: Cephalexin (Verified Allergy, Unknown, 05/24/23) Morphine (Verified Allergy, Unknown, 02/25/24) Medications Current Medications Medications Dose Ordered Sig/Miranda Route Start Time Stop Time Status Last Admin Dose Admin Nitroglycerin 0.4 mg Q5MINP PRN SL 09/11/24 00:30 Vancomycin HCl 0 ml @ 0 mls/hr UD IV 09/11/24 01:15 UNV Cefepime HCl 50 ml @ 12.5 mls/hr Q8HR IV 09/11/24 06:00 UNV Pantoprazole Sodium 40 mg DAILY IV 09/11/24 10:00 Aspirin 81 mg DAILY NG 09/11/24 01:30 Apixaban 5 mg BID NG 09/11/24 10:00 UNV Atorvastatin Calcium 40 mg HS NG 09/11/24 01:30 Trazodone HCl 25 mg HSPRN PRN NG 09/11/24 01:30 Lactated Ringer's 1,000 ml @ 100 mls/hr Q10H IV 09/11/24 01:30 Tramadol HCl 50 mg Q6HP PRN NG 09/11/24 01:45 Levothyroxine Sodium 100 mcg DAILY IV 09/11/24 10:00 UNV Norepinephrine Bitartrate 250 ml @ 3.75 mls/hr Q24H IV 09/11/24 03:15 UNV Exam Vital Signs Vital Signs Date Time Temp Pulse Resp B/P (MAP) Pulse Ox O2 Delivery O2 Flow Rate FiO2 09/11/24 00:15 99.3 75 13 107/52 (70) 92 99.3 09/11/24 00:15 Nasal Cannula* 3 32 General Appearance: Alert, Oriented X3, Cooperative, mild distress HEENT: Atraumatic, PERRLA, EOMI, Other (dry mucosa. ) Respiratory: Other (b/l rales and crackles 6 l nc 95% spo2) Cardiovascular: Regular rate, Normal S1, Normal S2, No murmurs, Other (80/min paced rhythm ) Abdominal: Normal bowel sounds, Soft, No hepatospenomegaly, No masses, Other (mild generalized tenderness. ) Extremities: No clubbing, No cyanosis, No edema, Normal pulses, Other (tenderness and pain to ) Skin: No significant lesion (mild blanching in the dependent back lower lumbar area. ) Neuro: Sensation intact, Cranial nerves 3-12 NL, Other (Left sided hemiparesis with distortion of the joints, right lower limb strength 1/5, right upper limb strength 3/5. slurred speech. ) Psych/Mental Status: Mental status NL, Mood NL, Other (mildly agitated) Labs/Xrays Labs Test 09/11/24 03:13 09/11/24 02:38 09/11/24 01:41 Range/Units SARS-CoV-2 Antigen (Rapid) Negative NEGATIVE Troponin I High Sensitivity 177 *H </=34 ng/L White Blood Count 8.5 4.4-10.8 10^3/uL Red Blood Count 2.96 L 4.0-5.20 10^6/uL Hemoglobin 9.9 L 12.2-16.2 g/dL Hematocrit 29.5 L 36.0-46.0 % Mean Corpuscular Volume 99.5 80.0-100.0 fL Mean Corpuscular Hemoglobin 33.3 H 28.0-32.0 pg Mean Corpuscular Hemoglobin Concent 33.4 32.0-36.0 g/dL Red Cell Distribution Width 15.6 H 11.8-14.3 % Platelet Count 225 140-450 10^3/uL Mean Platelet Volume 8.2 6.9-10.8 fL Neutrophils (%) (Auto) 77.4 37.0-80.0 % Lymphocytes (%) (Auto) 14.9 10.0-50.0 % Monocytes (%) (Auto) 6.8 0.0-12.0 % Eosinophils (%) (Auto) 0.2 0.0-7.0 % Basophils (%) (Auto) 0.7 0.0-2.0 % Neutrophils # (Auto) 6.6 1.6-8.6 10 ^3/uL Lymphocytes # (Auto) 1.3 0.4-5.4 10 ^3/uL Monocytes # (Auto) 0.6 0-1.3 10 ^3/uL Eosinophils # (Auto) 0 0-0.8 10 ^3/uL Basophils # (Auto) 0.1 0-0.2 10 ^3/uL Nucleated Red Blood Cells 0.1 % Prothrombin Time 13.4 H 9.3-11.8 sec Prothrombin Time INR 1.30 H 0.9-1.15 Activated Partial Thromboplast Time 45.9 H 24.5-34.5 SEC Sodium Level 144 136-145 mmol/L Potassium Level 3.9 3.5-5.1 mmol/L Chloride Level 114 H 98-107 mmol/L Carbon Dioxide Level 19 L 20-31 mmol/L Anion Gap 11 5-15 Blood Urea Nitrogen 30 H 9-23 mg/dL Creatinine 1.16 H 0.550-1.02 mg/dL Glomerular Filtration Rate Calc 50 >90 mL/min BUN/Creatinine Ratio 25.9 H 10.0-20.0 Serum Glucose 95 74-106 mg/dL Lactic Acid Level 1.5 0.4-2.0 mmol/L Calcium Level 8.7 8.7-10.4 mg/dL Total Bilirubin 0.6 0.2-1.0 mg/dL Aspartate Amino Transferase (AST) 34 13-40 U/L Alanine Aminotransferase (ALT) 27 7-40 U/L Alkaline Phosphatase 118 H 46-116 U/L B-Type Natriuretic Peptide 81.19 0-100 pg/mL Total Protein 5.7 5.7-8.2 g/dL Albumin 3.3 3.2-4.8 g/dL Thyroid Stimulating Hormone (TSH) 15.09 H 0.55-4.78 uIU/mL Assessment/Plan Assessment/Plan Assessment: # likely repeated stroke leading to right hemiparesis with speech difficulty # Aspiration pneumonia likely due to bulbar function # B/l pneumonia gram +ve / gram -ve / atypicals # Acute hypoxic respiratory failure on 6 L oxygen # Paroxysmal atrial fibrillation with secondary hypercoagulable state # Status post dual-chamber pacemaker Abott MRI friendly a-sensed v-paced # History of massive CVA with residual left-sided hemiparesis # Hypertensive heart disease, LVH: LVEF 65%. Mild LVH mild LV diastolic dysfunction # Dyslipidemia # Acute complicated cystitis # Chronic hypothyroidism # Severe hypokalemia resolved # Chronic macrocytic + iron deficient mixed anemia # GERD with gastritis # CAROLYN due to VMN # Hypothyroidism acute on chronic likely due to medication indiscretion # Type II demand mediated NSTEMI, telemetry with conservative management. # Recurrent strokes despite on anticoagulation # Decubitus ulcer high risk # Completely bed bound at home. # Carotid stenosis ruled out: Bilateral carotid duplex from 06/30/2024 revealed no hemodynamically significant stenosis noted in the bilateral carotid system. # Lower risk of significant coronary artery disease: Nuclear stress test from 05/24/2023 revealed ECG findings negative for ischemia and nuclear findings negative for ischemia # Insomnia on as needed trazodone. # Neuropathy and contracture. # Allergic to cephalexin and morphine. Plan: #Extensive workup with CBC, CMP, TSH, T3/T4, coagulation profile, covid, influenza and urinalysis. #Ekg with troponin trending pending. check QTC baseline #Strict NPO, NG tube check cxr, US chest pending. swallow eval pending. #Continue levophed drip with map>65 mm hg, iv fluid with ringer lactate to continue. #Blood, sputum, urine cultures to check. Lactic acid is -ve. #IV Vancomycin and Cefepime to continue. #Repeat Head CT unmarkable for bleeding, asa+aspririn+continue Eliquis, MRI brain pending. #PT eval pending, aspiration precaution, fall precaution, delirium precaution with head elevation at 30degree. #Oral care to continue, q2 hour bed turn to avoid decubitus ulcer. #Pain as needed tramadol. #ppi and sucralfate to continue for GI prophylaxis and gastritis with GERD #hold home antihypertensives. #overall poor quality of life with multiple comorbidities. Code status: Full code, goals of care discussed over 39 minutes with care plan. Critical care time total 47 minutes excluding the procedures. The patient and the daughter was discussed of the plan and agreeable with ICU level of care. Discussed with Dr. Elder. Plan discussed with: Patient, Daughter My Orders Orders - RUBEN DOW RESIDENT Procedure Category Date Status Time Admit ADMIT 09/11/24 Transmitted 00:24 Nitroglycerin PHA 09/11/24 In Process Sublingual (Ntrostat 00:30 Oxygen By Nasal RT 09/11/24 Transmitted Cannula 00:24 Stat Ekg For Chest TARI 09/11/24 In Process Pain 00:24 Notify Md Of Changes TARI 09/11/24 In Process From Base 00:24 Deburrer For TARI 09/11/24 In Process 24 Hours 00:24 Emergency Dysrhythmia [facility] 09/11/24 In Process Protocol 00:24 Rhythm Strips Once TARI 09/11/24 In Process Every Shift 00:24 Urine Bacterial VLADIMIR 09/11/24 In Process Culture 00:31 Blood Culture VLADIMIR 09/11/24 In Process 00:31 Respiratory Culture VLADIMIR 09/11/24 Logged W/ Gs 00:31 Strict Aspiration TARI 09/11/24 In Process Precautions 00:31 Bedrest: 30 Degree TARI 09/11/24 In Process Elevation 00:31 Npo (Nothing By DIET 09/11/24 Transmitted Mouth) Diet Breakfast * Swallow Request ST 09/11/24 Transmitted 00:36 Troponin-I Hs LAB 09/11/24 Logged 03:39 Pt Request For Service PT 09/11/24 Logged 00:40 Mrsa Screen VLADIMIR 09/11/24 In Process 00:41 Brain Head Wo Contrast MRI 09/11/24 Logged 01:13 Vancomycin Per PHA 09/11/24 Logged Pharmacy 01:15 Cefepime 1gm/ 50ml PHA 09/11/24 Pending (Maxipime 1gm/50ml) 06:00 Pantoprazole PHA 09/11/24 In Process (Protonix) 10:00 Mrsa Screen VLADIMIR 09/11/24 Uncollected 01:15 Place Ng ORDERS 09/11/24 Transmitted 01:15 Chest Xray 1 View XY 09/11/24 Logged 01:15 Oral Care Q4hrs Using TARI 09/11/24 In Process Oral Kit 01:20 Turn And Position TARI 09/11/24 In Process 01:20 Aspirin Tablet PHA 09/11/24 In Process 01:30 Apixaban (Eliquis) PHA 09/11/24 Logged 10:00 Atorvastatin (Lipitor) PHA 09/11/24 In Process 01:30 Trazodone Hcl PHA 09/11/24 In Process (Desyrel) 01:30 Lactated Ringer's PHA 09/11/24 In Process 01:30 Communication Order ORDERS 09/11/24 Transmitted 01:33 Tramadol Hcl (Ultram) PHA 09/11/24 In Process 01:45 Free T3 LAB 09/11/24 In Process 03:05 Free T4 (Free LAB 09/11/24 In Process Thyroxine) 03:05 Levothyroxine PHA 09/11/24 Logged Injection (Synthroid 03:15 Levothyroxine PHA 09/11/24 Logged Injection (Synthroid 10:00 Norepinephrine 8 PHA 09/11/24 Logged Mg/250ml Kit 03:15 Chest Ultrasound US 09/11/24 Logged 03:32 Date of Service: Sep 11, 2024 Billing Provider: BRENNAN ELDER MD Common Visit Codes: 70525-RASWRGI INP/OBS CARE (HIGH) Secondary Visit Codes: 54696-[id number] CARE PLAN 30 MINUTES RUBEN DOW RESIDENT Sep 11, 2024 04:04
[2024-09-11] MEDS: LACTATED RINGER'S 1,000 ML IV SCH (04:49)
[2024-09-11] MEDS: PANTOPRAZOLE 40 MG/10 ML VIAL INJ IV ONE (04:53)
[2024-09-11] MEDS: LEVOTHYROXINE SODIUM 100 MCG/5 ML INJ IV ONE (04:53)
[2024-09-11] MEDS: ATORVASTATIN 20 MG TAB NG SCH (04:53)
[2024-09-11] MEDS: ACETAMINOPHEN 325 MG TAB PO PRN (04:57)
--- NOTE | 2024-09-11 05:08 | DVH ---
CHEST RADIOGRAPH Indication: NG tube placement. Technique: Single frontal view of the chest was obtained Comparison: XY CHEST PORTABLE on DOS: 02/25/24 FINDINGS: Lines and Tubes: Enteric tube terminates in the stomach. Pacemaker noted with right atrial and ventri cular leads. Right central venous catheter terminates in the superior vena cava. Lungs: No focal consolidation. Pleura: Small bilateral pleural effusions. No pneumothorax. Cardiomediastinal contours: Unremarkable Bones: No acute osseous abnormality. IMPRESSION: 1. Appropriate position of the support lines and tubes. 2. Bilateral pleural effusions.
[2024-09-11] MEDS ORDERED: CEFEPIME 1GM/ 50ML 50 ML IV SCH (06:00)
[2024-09-11] MEDS: CEFEPIME 1GM/ 50ML 50 ML IV ONE (06:53)
[2024-09-11] MEDS ORDERED: SUCRALFATE 1 GM TAB PO SCH (07:00)
[2024-09-11] MEDS ORDERED: MAGNESIUM SULFATE 1GM/100ML 100 ML IV ONE (07:15)
--- NOTE | 2024-09-11 07:26 | DVH ---
EXAM: US Duplex Bilateral Lower Extremities Veins CLINICAL INDICATION: Non ambulatory patient with history of cancer TECHNIQUE: Real-time duplex ultrasound scan of the bilateral lower extremity veins integrating B-mod e two-dimensional vascular structure, Doppler spectral analysis, color flow Doppler imaging and compr ession. COMPARISON: None FINDINGS: RIGHT DEEP VEINS: Unremarkable. No DVT in the right common femoral, femoral, proximal deep femoral or popliteal veins. The veins demonstrate normal color flow, are normally compressible, with normal phasic flow and/or augmentation response. RIGHT SUPERFICIAL VEINS: Unremarkable. No thrombus in the visualized right great saphenous vein. LEFT DEEP VEINS: Unremarkable. No DVT in the left common femoral, femoral, proximal deep femoral o r popliteal veins. The veins demonstrate normal color flow, are normally compressible, with normal p hasic flow and/or augmentation response. LEFT SUPERFICIAL VEINS: Unremarkable. No thrombus in the visualized left great saphenous vein. SOFT TISSUES: No acute findings. No popliteal cyst. OTHER FINDINGS: . IMPRESSION: No DVT.
--- NOTE | 2024-09-11 07:55 | DVH ---
EXAM: US Chest CLINICAL INDICATION: quantify the pleural effusion. TECHNIQUE: Real-time ultrasound of the chest with image documentation. COMPARISON: None FINDINGS: No pleural effusion. . . IMPRESSION: No pleural effusion.
[2024-09-11] MEDS: PANTOPRAZOLE 40 MG/10 ML VIAL INJ IV SCH (09:19)
[2024-09-11] MEDS: APIXABAN 5 MG TAB NG SCH (09:20)
[2024-09-11] MEDS: MAGNESIUM SULFATE 1GM/100ML 100 ML IV ONE (09:20)
[2024-09-11] MEDS ORDERED: APIXABAN 5 MG TAB PO SCH (10:00)
[2024-09-11] MEDS ORDERED: ASPirin 81 mg TAB PO SCH (10:00)
[2024-09-11] MEDS: CEFEPIME 1GM/ 50ML 50 ML IV SCH (10:14)
[2024-09-11 11:21] LABS: Free T3 3.16 pg/mL (2.3-4.2)
[2024-09-11 11:22] LABS: Free T4 (Free Thyroxine) 1.69 ng/dL (0.89-1.76)
--- NOTE | 2024-09-11 15:24 | DVHPNRES ---
Progress Note Date Seen: Sep 11, 2024 Resident Creating Document: VAMSHI STREET RESIDENT Has the PT tested + for MRSA If YES, has PT been informed?: No Medical Necessity Reason Pt with a Central, PICC or Fol: Yes The following are medically ne: Central Line Medical Necessity Reason Patient is a 73 year old female who medical history include atrial fibrillation, stroke with residual left-sided deficits, breast cancer, hypertension, dual chamber Pacemaker, appendectomy, cholecystectomy, mastectomy was transferred from [facility] for continuity of care at [facility]. Patient is currently on NG tube and on levophed due to low bp and information is mainly from her . According , patient was just discharge from her on 08/03/2024 after she was managed for syncopal episode likely secondary to paroxysmal atrial fibrillation. Patient was discharged home at her baseline and has been stable until about 08/09/2024 when noticed that her right arm and hand has become a little weaker and she is unable to grab to cup. has been monitoring her over the weeks until yesterday when he noticed that her cough has been weak and it feels as though she is unable to clear her throat. Patient was sent to [facility] where management for bilateral pneumonia likely aspiration was initiated, septic shock needing Levophed support. Once patient was stabilized, she was transfer to [facility] for continuity of care. Upon arrival, the patient was alert and oriented but had no recollection of further syncopal event or aspiration. Patient is a direct admit to ICU from [place] ICU. Patient's blood pressure was on the soft side. Initial lab work here showed hemoglobin of 9.9, wbc: 8.5, cr 1.16 ( basel 0.87), urine,sputum and blood samples taken for culture. Cxr revealed Bilateral pleural effusions. Subjective Review of Systems Constitutional: Yes: Weakness; No: Fever, Chills, Sweats, Malaise, Other Eyes: No: Pain, Vision change, Conjunctivae inflammation, Eyelid inflammation, Other, Redness ENT: No: Ear pain, Ear discharge, Nose pain, Nose discharge, Nose congestion, Mouth pain, Mouth swelling, Throat pain, Throat swelling, Other Respiratory: Cough, Shortness of breath, weak cough, Sputum; No: Dry, Wheezing, Hemoptysis, Pleuritic Pain, Wheezing, Other Cardiovascular: No: Chest Pain, Palpitations, Orthopnea, Paroxysmal Noc. Dyspnea, Edema, Lt Headedness, Other Gastrointestinal: No: Nausea, Vomiting, Abdominal Pain, Diarrhea, Constipation, Melena, Hematochezia, Other Genitourinary: No Dysuria, No Frequency, No Incontinence, No Hematuria, No Retention, No Other Musculoskeletal: No: other, neck pain, shoulder pain, arm pain, back pain, hand pain, leg pain, foot pain Skin: Lesions; No: Rash, Jaundice, Bruising, Other Neurological: Weakness, Change in speech; No: Numbness, Incoordination, Confusion, Seizures, Other Allergies: Coded Allergies: Cephalexin,Morphine Objective vital signs Vital Sign Date Time Temp Pulse Resp B/P (MAP) Pulse Ox O2 Delivery O2 Flow Rate FiO2 09/11/24 14:00 70 09/11/24 14:00 12 100 Nasal Cannula* 6 44 09/11/24 13:45 98.1 104/47 (66) 208.6 Total Intake and Output 09/10/24 09/10/24 09/11/24 15:00 23:00 07:00 Intake Total 486.00 ml Output Total 250 ml Balance 236.00 ml medications Current Medications Medications Dose Ordered Sig/Miranda Route Start Time Stop Time Status Last Admin Dose Admin Nitroglycerin 0.4 mg Q5MINP PRN SL 09/11/24 00:30 Vancomycin HCl 0 ml @ 0 mls/hr UD IV 09/11/24 01:15 Pantoprazole Sodium 40 mg DAILY IV 09/11/24 10:00 09/11/24 09:19 40 MG Aspirin 81 mg DAILY NG 09/11/24 01:30 09/11/24 09:20 81 MG Apixaban 5 mg BID NG 09/11/24 10:00 09/11/24 09:20 5 MG Atorvastatin Calcium 40 mg HS NG 09/11/24 01:30 09/11/24 04:53 40 MG Trazodone HCl 25 mg HSPRN PRN NG 09/11/24 01:30 Tramadol HCl 50 mg Q6HP PRN NG 09/11/24 01:45 09/11/24 03:48 50 MG Levothyroxine Sodium 100 mcg DAILY IV 09/12/24 10:00 Norepinephrine Bitartrate 250 ml @ 3.75 mls/hr Q24H IV 09/11/24 03:15 09/11/24 00:15 3.75 MLS/HR Acetaminophen 650 mg Q6HP PRN PO 09/11/24 04:15 09/11/24 04:57 650 MG Cefepime HCl 50 ml @ 12.5 mls/hr Q12H IV 09/11/24 10:00 09/11/24 10:14 12.5 MLS/HR Examination General Appearance: Alert, Oriented X3, Cooperative, mild distress HEENT: Atraumatic, PERRLA, EOMI, Other (dry mucosa. ) Respiratory: Other (b/l rales and crackles 6 l nc 95% spo2), right breast with implant Cardiovascular: Regular rate, Normal S1, Normal S2, No murmurs, Other (80/min paced rhythm ), Abdominal: Normal bowel sounds, Soft, No hepatospenomegaly, No masses, Other (mild generalized tenderness. ) Extremities: No clubbing, No cyanosis, No edema, Normal pulses, Other (tenderness and pain to ) Skin: No significant lesion (mild blanching in the dependent back lower lumbar area. ) Neuro: Sensation intact, Cranial nerves 3-12 NL, Other (Left sided hemiparesis with distortion of the joints, right lower limb strength 1/5, right upper limb strength 3/5. slurred speech. ) Psych/Mental Status: Mental status NL, Mood NL, Other (mildly agitated) laboratory and microbiology Laboratory Tests 09/11/24 01:41 Test 09/11/24 01:41 Range/Units Serum Glucose 95 74-106 mg/dL Microbiology Date/Time Source Procedure Growth Status 09/11/24 00:41 Nose MRSA Screen - Final Complete Problem List/Assessment/Plan Problem List/Assessment/Plan Assessment and plan NEUROLOGY: Right sided fernando paresis likely repeated stroke leading to right hemiparesis with speech difficulty. ? Recurrent strokes despite on anticoagulation History of massive CVA with left sided hemiplegic Insomnia on as needed trazodone CARDIOVASCULAR: Paroxysmal atrial fibrillation with secondary hypercoagulable state Status post dual-chamber pacemaker Abott MRI friendly a-sensed v-paced Hypertensive heart disease, LVH: LVEF 65%. Mild LVH mild LV diastolic dysfunction Type II demand mediated NSTEMI, telemetry with conservative management Carotid stenosis ruled out: Bilateral carotid duplex from 06/30/2024 revealed no hemodynamically significant stenosis noted in the bilateral carotid system. Lower risk of significant coronary artery disease: Nuclear stress test from 05/24/2023 revealed ECG findings negative for ischemia and nuclear findings negative for ischemia on Aspirin, eliquis Obtained Echo RESPIRATORY: Aspiration pneumonia likely due to bulbar function B/l pneumonia gram +ve / gram -ve / atypicals Acute hypoxic respiratory failure on 6 L oxygen Pleural effusion Stop IV fluid Continue vancomycin and Cefepime 6L oxygen NC Pending Sputum culture GASTROINTESTINAL GERD with gastritis Protonix METABOLIC Dyslipidemia Severe hypokalemia resolved obesity grade 1 replenish electrolytes GENITOURINARY Acute complicated cystitis Chronic hypothyroidism CAROLYN due to VMN ( baseline 0.87) Cefepime Judious IV use HEMATOLOGY Chronic macrocytic + iron deficient mixed anemia Monitor H& H closely and transfuse if hgb< 7 ENDOCRINE Hypothyroidism acute on chronic likely due to medication indiscretion Give levothyroxine 100mcg INFECTIOUS DISEASE Likely sepsis in the setting of aspiration pneumonia MRSA screen negative Continue vancomycin and Cefepime blood culture and urine culture pending SKIN Decubitus ulcer high risk Completely bed bound at home. IV access Central line: right sided IJV: double lumen 09/10/2024 Drips: Levophed titrating down Delgado's catheter in place 09/10/2024 DVT prophylaxis: already on eliquis GI prophylaxis: Protonix Diet: TPN Critical care time 55 minutes, Code status: full Advance care planning discussed with Dr. Prieto Plan discussed with: Patient My Orders My Orders Orders - VAMSHI STREET Procedure Category Date Status Time * Neurology Consult CONS 09/11/24 Transmitted 14:01 Brain Head Wo Contrast MRI 09/11/24 Logged 14:01 * Swallow Request ST 09/11/24 Transmitted 14:11 Date of Service: Sep 11, 2024 Billing Provider: NICK PRIETO MD Common Visit Codes: NOT BILLABLE [address]AMSH[address] ST[address] Sep 11, 2024 15:24 NICK PRIETO MD Sep 16, 2024 14:40
[2024-09-11] MEDS ORDERED: DICY-89 PO (18:32)
[2024-09-11] MEDS: traZODone HCL 50 MG TAB NG PRN (21:40)
--- NOTE | 2024-09-11 21:41 | DVHINCON2 ---
Date of service: Sep 11, [address] Loomis Reason for Consultation New onset right-sided weakness History of Present Illness Ms. Posada is a 73 years old right-handed female with a history of hypertension, atrial fibrillation, breast cancer, kidney stone, the patient was came to the hospital on 09/11/2024 with a chief company of shortness breath, general weakness, and the patient was found to have pneumonia, respiratory failure, hypotension, and the patient was admitted to ICU, the patient was also has other problems In 2020, the patient was had left-sided weakness, the patient was seen in the [facility] in [facility], and she was said to have stroke, the patient was residual left-sided weakness In 07/2024, she developed right-sided weakness, but the patient was did not seek medical attention She has atrial fibrillation, she was on Eliquis and Lipitor home WBC/HB/PLT/MCV, 09/11/2024: 8.5/9.9/225/99.5 PTT/INR/ABG, 09/11/2024: 13.5/1.3/45.9 HCO3, 09/11/2024:19 BUN/CR, 09/11/2024: 30/1.16 HGB A1c, 07/12/2019 5:4.5 Liver function tests, 09/11/2024: Unremarkable TG/HDL/LDL/HDL, 07/14/2024: 89/110/59/26 Vitamin B12, 07/2019 5:1114 Folic acid, 07/2024: 0.9 TSH, 09/11/2024: 15.09 Carotid Doppler, : No hemodynamically significant stenosis noted in t he right carotid system. No hemodynamically significant stenosis noted in the left carotid system Chest x-ray, 09/11/2024: 1. Appropriate position of the support lines and tubes. 2. Bilateral pleural effusions. Past Medical History Hypertension, AFib, stroke, breast cancer, kidney stone Past Surgical History Appendectomy, cholecystectomy, cystectomy, pacemaker insertion in 2021 Family History: Diabetes mellitus G8 MOTHER Hypertension G8 MOTHER Rectal cancer G8 MOTHER G8 MOTHER Family History Hypertension, diabetes, rectal cancer Social History She is a Non-Smoker she was no history of drug or alcohol abuse Allergies: Coded Allergies: Cephalexin (Verified Allergy, Unknown, 05/24/23) Morphine (Verified Allergy, Unknown, 02/25/24) Home Meds Active Scripts Nitrofurantoin (Nitrofurantoin) 100 Mg Cap, 1 CAP PO BID for 5 Days, #10 CAP Prov:SUGEY SCHULTZ RESIDENT 08/03/24 Potassium Chloride (Klor-Con M20) 20 Meq Tab, 20 MEQ PO QAM for 30 Days, #30 TAB Prov:BRENNAN DARBY MD 07/15/24 Sucralfate (Sucralfate) 1 Gm Tab, 1 GM PO QIDACHS for 30 Days, #120 TAB Prov:BRENNAN DARBY MD 03/06/24 Pantoprazole Sodium Sesquihydr (Pantoprazole Sodium) 40 Mg Tab, 40 MG PO BID for 30 Days, #60 TAB Prov:BRENNAN DARBY MD 03/06/24 Levothyroxine Sodium (Levothyroxine Sodium) 75 Mcg Tab, 88 MCG PO DAILY for 30 Days, #36 TAB 2 Refills Prov:NIC GUY MD 09/18/23 Reported Medications Dicyclomine Hcl (Dicyclomine Hcl) 10 Mg Cap, 20 MG PO DAILY, CAP 09/11/24 Ferrous Sulfate (Ferrous Sulfate) 325 Mg Tab, 325 MG PO 2XW for 30 Days, MG 08/01/24 Hydrochlorothiazide W/Triamter (Triamterene/Hydrochloroth) 1 Cap Cap, 1 CAP PO DAILY for 30 Days, #30 [TRIAMT/HCTZ 37.5/25] 02/29/24 Apixaban Base (ELIQUIS) 5 Mg Tab, 1 TAB PO BID for 30 Days, #60 02/29/24 Trazodone Hcl (Trazodone Hcl) 50 Mg Tab, 0.5 TAB PO HS PRN for 30 Days, #15 02/29/24 Amlodipine Besylate (Amlodipine Besylate) 10 Mg Tab, 1 TAB PO DAILY for 30 Days, #30 12/24/23 Amiodarone HCl (Amiodarone HCl) 200 Mg Tab, 1 TAB PO BID 12/24/23 Losartan Potassium (Losartan Potassium) 50 Mg Tab, 1 TAB PO DAILY for 90 Days, #90 12/24/23 Atorvastatin Calcium (ATORVASTATIN CALCIUM) 40 Mg Tab, 1 TAB PO DAILY for 90 Days, #90 12/24/23 Metoprolol Succinate (Metoprolol Succinate Er) 50 Mg Tab, 1 TAB PO DAILY 12/24/23 Current Medications Current Medications Medications (Trade) Dose Ordered Sig/Miranda Route PRN Reason Start Time Stop Time Status Last Admin Nitroglycerin (Ntrostat Sublingual) 0.4 mg Q5MINP PRN SL FOR CHEST PAIN 09/11/24 00:30 Morphine Sulfate 2 mg Q30M PRN IV FOR CHEST PAIN 09/11/24 00:30 09/11/24 01:30 DC Aspirin 81 mg DAILY PO 09/11/24 10:00 09/11/24 01:30 DC Atorvastatin Calcium (Lipitor) 40 mg HS PO 09/11/24 22:00 09/11/24 01:30 DC Vancomycin HCl 0 ml @ 0 mls/hr UD IV 09/11/24 01:15 Cefepime HCl 50 ml @ 12.5 mls/hr Q8HR IV 09/11/24 06:00 09/11/24 09:15 DC Pantoprazole Sodium (Protonix) 40 mg DAILY IV 09/11/24 10:00 09/11/24 09:19 Apixaban (Eliquis) 5 mg BID PO 09/11/24 10:00 09/11/24 01:30 DC Sucralfate (Carafate Tab) 1 gm QIDACHS PO 09/11/24 07:00 09/11/24 01:31 DC Trazodone HCl (Desyrel) 25 mg HSPRN PRN PO SLEEP 09/11/24 22:00 09/11/24 01:30 DC Aspirin 81 mg DAILY NG 09/11/24 01:30 09/11/24 09:20 Apixaban (Eliquis) 5 mg BID NG 09/11/24 10:00 09/11/24 09:20 Atorvastatin Calcium (Lipitor) 40 mg HS NG 09/11/24 01:30 09/11/24 04:53 Trazodone HCl (Desyrel) 25 mg HSPRN PRN NG SLEEP 09/11/24 01:30 Lactated Ringer's 1,000 ml @ 100 mls/hr Q10H IV 09/11/24 01:30 09/11/24 14:14 DC 09/11/24 04:49 Tramadol HCl (Ultram) 50 mg Q6HP PRN NG SEVERE PAIN (7-10 PAIN SCALE) 09/11/24 01:45 09/11/24 16:27 Levothyroxine Sodium (Synthroid Injection) 100 mcg DAILY IV 09/12/24 10:00 Norepinephrine Bitartrate 250 ml @ 3.75 mls/hr Q24H IV 09/11/24 03:15 09/11/24 18:34 DC 09/11/24 00:15 Acetaminophen (Tylenol Tablet) 650 mg Q6HP PRN PO MILD PAIN (1-3 PAIN SCALE) 09/11/24 04:15 09/11/24 04:57 Vancomycin HCl 200 ml @ 200 mls/hr Q1H IV 09/11/24 04:30 09/11/24 06:29 DC 09/11/24 06:22 Cefepime HCl 50 ml @ 12.5 mls/hr Q12H IV 09/11/24 10:00 09/11/24 10:14 Norepinephrine Bitartrate 250 ml @ 3.75 mls/hr Q24H IV 09/11/24 18:45 Review of Systems As above, the other systems are negative Vital Signs Vital Signs Date Time Temp Pulse Resp B/P (MAP) Pulse Ox O2 Delivery O2 Flow Rate FiO2 09/11/24 21:00 99.3 76 17 112/47 (68) 100 210.7 09/11/24 20:00 Nasal Cannula* 4 36 Physical Exam GENERAL EXAM: General: the patient is well developed and nourished. No acute distress. HEENT: Normocephalic, neck is supple, no carotid bruits. No mass. RESPIRATORY: Normal respiratory effort with symmetrical lung expansion. Lungs clear to auscultation. CARDIOVASCULAR: Regular rate and rhythm with no murmurs. S1, S2. ABDOMEN: Soft, nontender, normal bowel sound NEUROLOGICAL: MENTAL STATUS: Awake and alert. Oriented to person, place, time and general circumstances. She was a poor historian secondary to generalized weakness and shortness breath SPEECH, LANGUAGE, HIGHER CORTICAL FUNCTION: no aphasia or dysathria. CRANIAL NERVES: #2: Intact visual bond to confrontation. The optic discs were sharp. #3,4,6: Pupils are equal, round and reactive. EOMs full and conjugate. #5: Facial sensation intact in all three divisions bilaterally. Mandibular strength intact. #7: Facial muscles symmetrical and strength intact. #8: Hearing grossly normal to voice. #9,10: Uvula and soft palate rise in the midline. Swallow and voice are normal. #11: Trapezius and sternomastoid strength intact bilaterally. #12: Tongue midline. No fasciculations or atrophy. SENSATION: Sensation to touch and pinprick is normal. MOTOR: Normal tone in the upper and lower extremity. Normal muscle bulk. No fasciculations. No abnormal movements or posturing. She moves the arms, right 2-3/5, left: 1-2/5. Moves the legs slightly REFLEXES: Deep tendon reflexes normal and symmetrical. No pathological reflexes. CEREBELLAR/COORDINATION: Finger to nose and heel to gomez are normal bilaterally. GAIT/STATION: deferred. Labs/Diagnostic Data Labs Test 09/11/24 08:30 09/11/24 03:13 09/11/24 02:38 09/11/24 01:41 Range/Units Troponin I High Sensitivity 116 *H </=34 ng/L SARS-CoV-2 Antigen (Rapid) Negative NEGATIVE Magnesium Level 1.7 1.6-2.6 mg/dL White Blood Count 8.5 4.4-10.8 10^3/uL Red Blood Count 2.96 L 4.0-5.20 10^6/uL Hemoglobin 9.9 L 12.2-16.2 g/dL Hematocrit 29.5 L 36.0-46.0 % Mean Corpuscular Volume 99.5 80.0-100.0 fL Mean Corpuscular Hemoglobin 33.3 H 28.0-32.0 pg Mean Corpuscular Hemoglobin Concent 33.4 32.0-36.0 g/dL Red Cell Distribution Width 15.6 H 11.8-14.3 % Platelet Count 225 140-450 10^3/uL Mean Platelet Volume 8.2 6.9-10.8 fL Neutrophils (%) (Auto) 77.4 37.0-80.0 % Lymphocytes (%) (Auto) 14.9 10.0-50.0 % Monocytes (%) (Auto) 6.8 0.0-12.0 % Eosinophils (%) (Auto) 0.2 0.0-7.0 % Basophils (%) (Auto) 0.7 0.0-2.0 % Neutrophils # (Auto) 6.6 1.6-8.6 10 ^3/uL Lymphocytes # (Auto) 1.3 0.4-5.4 10 ^3/uL Monocytes # (Auto) 0.6 0-1.3 10 ^3/uL Eosinophils # (Auto) 0 0-0.8 10 ^3/uL Basophils # (Auto) 0.1 0-0.2 10 ^3/uL Nucleated Red Blood Cells 0.1 % Prothrombin Time 13.4 H 9.3-11.8 sec Prothrombin Time INR 1.30 H 0.9-1.15 Activated Partial Thromboplast Time 45.9 H 24.5-34.5 SEC Sodium Level 144 136-145 mmol/L Potassium Level 3.9 3.5-5.1 mmol/L Chloride Level 114 H 98-107 mmol/L Carbon Dioxide Level 19 L 20-31 mmol/L Anion Gap 11 5-15 Blood Urea Nitrogen 30 H 9-23 mg/dL Creatinine 1.16 H 0.550-1.02 mg/dL Glomerular Filtration Rate Calc 50 >90 mL/min BUN/Creatinine Ratio 25.9 H 10.0-20.0 Serum Glucose 95 74-106 mg/dL Lactic Acid Level 1.5 0.4-2.0 mmol/L Calcium Level 8.7 8.7-10.4 mg/dL Total Bilirubin 0.6 0.2-1.0 mg/dL Aspartate Amino Transferase (AST) 34 13-40 U/L Alanine Aminotransferase (ALT) 27 7-40 U/L Alkaline Phosphatase 118 H 46-116 U/L B-Type Natriuretic Peptide 81.19 0-100 pg/mL Total Protein 5.7 5.7-8.2 g/dL Albumin 3.3 3.2-4.8 g/dL Thyroid Stimulating Hormone (TSH) 15.09 H 0.55-4.78 uIU/mL Free Thyroxine (T4) Calculated 1.69 0.89-1.76 ng/dL Free Triiodothyronine (T3) pg/mL 3.16 2.3-4.2 pg/mL Microbiology Date/Time Source Procedure Growth Status 09/11/24 00:41 Nose MRSA Screen - Final Complete Assessment Acute respiratory failure secondary to pneumonia Pneumonia, ? Aspiration Right sided weakness in 07/2024, rule out acute stroke Chronic stroke with residual left-sided hemiparesis Atrial fibrillation Coagulopathy Plan/Recommendation Monitoring Supportive treatment Follow-up lab Blood culture MR brain scan Carotid Doppler Echocardiogram ICU care Stabilize vitals Respiratory support Oxygen Eliquis 5 mg b.i.d. Lipitor 40 mg daily GI prophylaxis More recommendation per clinical course Progress: Guarded Critical care time spent is 45 minutes This medical document was created using an electronic medical record system with [employer] dictation system. Although this document has been carefully reviewed, there may still be some phonetic and typographical errors. These areas are purely typographical due to imperfections of the software programs, and do not reflect any compromise in the patient's medical care. Plan discussed with: Other MARY RAMIREZ MD Sep 11, 2024 21:41
[2024-09-11] MEDS ORDERED: CLINIMIX PER PHARMACY 0 ML IV SCH (22:00)
[2024-09-11] MEDS ORDERED: traZODone HCL 50 MG TAB PO PRN (22:00)
[2024-09-11] MEDS ORDERED: ATORVASTATIN 20 MG TAB PO SCH (22:00)
[2024-09-11] MEDS: AMINO ACID INFUSION IN D10W 1,000 ML IV ONE (22:18)
[2024-09-12] VITALS (63 sets, daily range): BP systolic 84–110; BP diastolic 31–47; PULSE 70–78; RESP 12–21; TEMP 98.1–99; O2SAT 96–100
--- NOTE | 2024-09-12 03:48 | DVH ---
Carotid Duplex Date: 09/11/2024 10:39 PM Clinical History: cva Comparison: US CAROTID DUPLX W COLOR DOP on DOS: 05/26/23 Technique: Duplex Doppler evaluation of the extracranial carotid and vertebral arteries including col or Doppler and spectral/pulsed waveform analysis was performed. Findings: Right carotid artery not visualized. Less than 50% stenosis of the left ICA. IMPRESSION: No hemodynamically significant stenosis noted in the left carotid system. Reference: Radiology 2003; 229:[id number]
[2024-09-12 04:19] LABS: Basophils # (auto) 0 10 ^3/uL (0-0.2); Basophils % (auto) 0.5 % (0.0-2.0); Eosinophils # (auto) 0 10 ^3/uL (0-0.8); Eosinophils % (auto) 0.1 % (0.0-7.0); Hemoglobin 8.7 g/dL (12.2-16.2); Lymphocytes # (auto) 0.7 10 ^3/uL (0.4-5.4); Lymphocytes % (auto) 10.2 % (10.0-50.0); Mean Corpuscular Hgb Conc. 33.4 g/dL (32.0-36.0); Monocytes # (auto) 0.3 10 ^3/uL (0-1.3); Monocytes % (auto) 4.3 % (0.0-12.0); Neutrophils # (auto) 5.5 10 ^3/uL (1.6-8.6); Neutrophils % (auto) 84.9 % (37.0-80.0); Platelet Count (auto) 193 10^3/uL (140-450); Red Blood Cells 2.63 10^6/uL (4.0-5.20); Red Cell Distribution Width 15.5 % (11.8-14.3); White Blood Cell 6.5 10^3/uL (4.4-10.8)
[2024-09-12 04:34] LABS: Alanine Aminotransferase 24 U/L (7-40); Albumin 3.3 g/dL (3.2-4.8); Alkaline Phosphatase 100 U/L (46-116); Anion Gap 9 (5-15); BUN/Creatinine Ratio 32.5 (10.0-20.0); Magnesium 2.1 mg/dL (1.6-2.6); Phosphorus 2.8 mg/dL (2.4-5.1); Sodium 141 mmol/L (136-145)
[2024-09-12 04:35] LABS: Bilirubin, Total 0.3 mg/dL (0.2-1.0); Blood Urea Nitrogen 26 mg/dL (9-23); Calcium 8.5 mg/dL (8.7-10.4); Carbon Dioxide 19 mmol/L (20-31); Chloride 113 mmol/L (98-107); Glucose 132 mg/dL (74-106); Potassium 3.3 mmol/L (3.5-5.1); Total Protein 5.5 g/dL (5.7-8.2)
[2024-09-12 05:03] LABS: Aspartate Aminotransferase 32 U/L (13-40)
--- NOTE | 2024-09-12 08:26 | DVHPN2 ---
Progress Note - Dictate Date Seen: Sep 12, 2024 Has the PT tested + for MRSA If YES, has PT been informed?: No Medical Necessity Reason Pt with a Central, PICC or Fol: Yes The following are medically ne: Central Line Subjective Ms. Posada is a 73 years old right-handed female with a history of hypertension, atrial fibrillation, breast cancer, kidney stone, the patient was came to the hospital on 09/11/2024 with a chief company of shortness breath, general weakness, and the patient was found to have pneumonia, respiratory failure, hypotension, and the patient was admitted to ICU, the patient was also has other problems I have seen and examined the patient, I have discussed with her nurse, she is awake, she whispers, however the voice too weak to here, and hard to read her mouth. She follows verbal commands, he looks Blood culture, 09/11/2024: WBC/HB/PLT/MCV, 09/11/2024: 8.5/9.9/225/99.5 PTT/INR/ABG, 09/11/2024: 13.5/1.3/45.9 HCO3, 09/11/2024:19 BUN/CR, 09/11/2024: 30/1.16 HGB A1c, 07/12/2019 5:4.5 Liver function tests, 09/11/2024: Unremarkable TG/HDL/LDL/HDL, 07/14/2024: 89/110/59/26 Vitamin B12, 07/2019 5:1114 Folic acid, 07/2024: 0.9 TSH, 09/11/2024: 15.09 Carotid Doppler, 06/30/24: No hemodynamically significant stenosis noted in the right carotid system. No hemodynamically significant stenosis noted in the left carotid system Current Doppler, 09/12/2024: No hemodynamically significant stenosis noted in the left carotid system. Chest x-ray, 09/11/2024: 1. Appropriate position of the support lines and tubes. 2. Bilateral pleural effusions. vital signs Vital Sign Date Time Temp Pulse Resp B/P (MAP) Pulse Ox O2 Delivery O2 Flow Rate FiO2 09/12/24 07:45 70 12 98 Nasal Cannula* 4 36 09/12/24 06:45 98.4 108/43 (64) 209.1 Total Intake and Output 609/11/24 09/12/24 15:00 23:00 07:00 Intake Total 230.00 ml 63.25 ml 386.5 ml Output Total 250 ml 250 ml Balance 230.00 ml -186.75 ml 136.5 ml medications Current Medications Medications Dose Ordered Sig/Miranda Route Start Time Stop Time Status Last Admin Dose Admin Nitroglycerin 0.4 mg Q5MINP PRN SL 09/11/24 00:30 Vancomycin HCl 0 ml @ 0 mls/hr UD IV 09/11/24 01:15 Pantoprazole Sodium 40 mg DAILY IV 09/11/24 10:00 09/11/24 09:19 40 MG Aspirin 81 mg DAILY NG 09/11/24 01:30 09/11/24 09:20 81 MG Apixaban 5 mg BID NG 09/11/24 10:00 09/11/24 21:41 5 MG Atorvastatin Calcium 40 mg HS NG 09/11/24 01:30 09/11/24 21:41 40 MG Trazodone HCl 25 mg HSPRN PRN NG 09/11/24 01:30 09/11/24 21:40 25 MG Tramadol HCl 50 mg Q6HP PRN NG 09/11/24 01:45 09/11/24 23:11 50 MG Levothyroxine Sodium 100 mcg DAILY IV 09/12/24 10:00 Acetaminophen 650 mg Q6HP PRN PO 09/11/24 04:15 09/11/24 04:57 650 MG Cefepime HCl 50 ml @ 12.5 mls/hr Q12H IV 09/11/24 10:00 09/11/24 21:44 12.5 MLS/HR Norepinephrine Bitartrate 250 ml @ 3.75 mls/hr Q24H IV 09/11/24 18:45 Amino Acids 0 ml @ 0 mls/hr PER PHARMACY IV 09/11/24 22:00 UNV Lorazepam 1 mg ONCE PRN IV 09/11/24 22:00 objective General: the patient is well developed and nourished. No acute distress. MENTAL STATUS: Subjective SPEECH, LANGUAGE, HIGHER CORTICAL FUNCTION: Subjective CRANIAL NERVES: Pupils are equal, round and reactive. EOMs full and conjugate. Facial sensation intact in all three divisions bilaterally. Mandibular strength intact. Facial muscles symmetrical and strength intact. SENSATION: Sensation to touch and pinprick is finel. MOTOR: Normal tone in the upper and lower extremity. Normal muscle bulk. No fasciculations. No abnormal movements or posturing. She moves the arms, right 2/5, left: 0-1/5. Moves the legs slightly: 1./5 REFLEXES: Deep tendon reflexes normal and symmetrical. No pathological reflexes. CEREBELLAR/COORDINATION: Finger to nose and heel to gomez are normal bilaterally. GAIT/STATION: deferred. laboratory and microbiology Laboratory Tests 09/12/24 03:20 Test 09/12/24 03:20 Range/Units Serum Glucose 132 H 74-106 mg/dL Problem List Acute respiratory failure secondary to pneumonia Pneumonia, ? Aspiration Right sided weakness in 07/2024, rule out acute stroke Chronic stroke with residual left-sided hemiparesis Atrial fibrillation Coagulopathy Assessment/Plan Monitoring Supportive treatment Follow-up lab Blood culture MR brain scan Echocardiogram ICU care Stabilize vitals Respiratory support Oxygen Eliquis 5 mg b.i.d. Lipitor 40 mg daily GI prophylaxis More recommendation per clinical course This medical document was created using an electronic medical record system with [employer] dictation system. Although this document has been carefully reviewed, there may still be some phonetic and typographical errors. These areas are purely typographical due to imperfections of the software programs, and do not reflect any compromise in the patient's medical care. Dietary Evaluation Review Comments: Cardiac Diet, iron supplementation. Follow up with nephrology consult Expected Outcomes/Goals: Gradual wt loss, improved nutrition related lab values. Plan discussed with: Other MARY RAMIREZ MD Sep 12, 2024 08:26
[2024-09-12] MEDS: POTASSIUM CHLORIDE 40 MEQ, LIDOCAINE 1% (LOCAL ANESTH.) 4 ML in SODIUM CHL 0.9% 250 ML IV ONE (08:42)
[2024-09-12] MEDS: LEVOTHYROXINE SODIUM 100 MCG/5 ML INJ IV SCH (08:49)
--- NOTE | 2024-09-12 09:06 | ECG ---
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
[2024-09-12] MEDS ORDERED: Jevity 1.2 Cal/Fiber 1 Liter GT SCH (15:15)
--- NOTE | 2024-09-12 16:40 | MEDREC ---
[facility] ASP Intervention Section I [facility] ASP Intervention: Review courses of therapy (PRELIMINARY URINE CULTURE POSITIVE FOR YEAST - PLEASE CONSIDER ADDING ANTIFUNGAL ) MARY ELLEN ACSENCIO PHARMACIST Sep 12, 2024 16:40
--- NOTE | 2024-09-12 17:04 | DVHPNRES ---
Progress Note Date Seen: Sep 12, 2024 Resident Creating Document: [address] RESIDENT Has the PT tested + for MRSA If YES, has PT been informed?: No Medical Necessity Reason Pt with a Central, PICC or Fol: Yes The following are medically ne: Central Line Medical Necessity Reason Pain seen and examined at the bedside. She was cover in blanket. Patient slept well last night without complaints. She was also seen by the neurology for the new onset right sided weakness. MRI order placed, but given the patient's pacemaker, it would need to turn off for an mri by the [employer]. Thus will get the MRI tomorrow at 1: 30 pm. Patient also was unable to pass the swallow evaluation. She is currently on only 1L of oxygen NC Subjective Review of Systems Constitutional: Yes: Weakness; No: Fever, Chills, Sweats, Malaise, Other Eyes: No: Pain, Vision change, Conjunctivae inflammation, Eyelid inflammation, Other, Redness ENT: No: Ear pain, Ear discharge, Nose pain, Nose discharge, Nose congestion, Mouth pain, Mouth swelling, Throat pain, Throat swelling, Other Respiratory: Cough, Shortness of breath, weak cough, Sputum; No: Dry, Wheezing, Hemoptysis, Pleuritic Pain, Wheezing, Other Cardiovascular: No: Chest Pain, Palpitations, Orthopnea, Paroxysmal Noc. Dyspnea, Edema, Lt Headedness, Other Gastrointestinal: No: Nausea, Vomiting, Abdominal Pain, Diarrhea, Constipation, Melena, Hematochezia, Other Genitourinary: No Dysuria, No Frequency, No Incontinence, No Hematuria, No Retention, No Other Musculoskeletal: No: other, neck pain, shoulder pain, arm pain, back pain, hand pain, leg pain, foot pain Skin: Lesions; No: Rash, Jaundice, Bruising, Other Neurological: Weakness, Change in speech; No: Numbness, Incoordination, Confusion, Seizures, Other Objective vital signs Vital Sign Date Time Temp Pulse Resp B/P (MAP) Pulse Ox O2 Delivery O2 Flow Rate FiO2 09/12/24 15:34 15 100 Nasal Cannula* 1 24 09/12/24 15:34 70 09/12/24 09:15 98.2 101/38 (59) 208.8 Total Intake and Output 09/11/24 09/11/24 09/12/24 15:00 23:00 07:00 Intake Total 230.00 ml 63.25 ml 428.5 ml Output Total 250 ml 250 ml Balance 230.00 ml -186.75 ml 178.5 ml medications Current Medications Medications Dose Ordered Sig/Miranda Route Start Time Stop Time Status Last Admin Dose Admin Nitroglycerin 0.4 mg Q5MINP PRN SL 09/11/24 00:30 Vancomycin HCl 0 ml @ 0 mls/hr UD IV 09/11/24 01:15 Pantoprazole Sodium 40 mg DAILY IV 09/11/24 10:00 09/12/24 08:49 40 MG Aspirin 81 mg DAILY NG 09/11/24 01:30 09/12/24 08:49 81 MG Apixaban 5 mg BID NG 09/11/24 10:00 09/12/24 08:49 5 MG Atorvastatin Calcium 40 mg HS NG 09/11/24 01:30 09/11/24 21:41 40 MG Trazodone HCl 25 mg HSPRN PRN NG 09/11/24 01:30 09/11/24 21:40 25 MG Tramadol HCl 50 mg Q6HP PRN NG 09/11/24 01:45 09/12/24 10:49 50 MG Levothyroxine Sodium 100 mcg DAILY IV 09/12/24 10:00 09/12/24 08:49 100 MCG Acetaminophen 650 mg Q6HP PRN PO 09/11/24 04:15 09/11/24 04:57 650 MG Cefepime HCl 50 ml @ 12.5 mls/hr Q12H IV 09/11/24 10:00 09/12/24 08:49 12.5 MLS/HR Norepinephrine Bitartrate 250 ml @ 3.75 mls/hr Q24H IV 09/11/24 18:45 Amino Acids 0 ml @ 0 mls/hr PER PHARMACY IV 09/11/24 22:00 Lorazepam 1 mg ONCE PRN IV 09/11/24 22:00 Enteral Nutritional Formula 1,000 ml 30ML/HR GT 09/12/24 15:15 Examination General Appearance: Alert, Oriented X3, Cooperative, mild distress HEENT: Atraumatic, PERRLA, EOMI, Other (dry mucosa. ) Respiratory/chest: Other (b/l rales and crackles 6 l nc 95% spo2), right breast implant Cardiovascular: Regular rate, Normal S1, Normal S2, No murmurs, Other (80/min paced rhythm ), Abdominal: Normal bowel sounds, Soft, No hepatospenomegaly, No masses, Other (mild generalized tenderness. ) Extremities: No clubbing, No cyanosis, No edema, Normal pulses, Other (tenderness and pain to ) Skin: No significant lesion (mild blanching in the dependent back lower lumbar area. ) Neuro: Sensation intact, Cranial nerves 3-12 NL, Other (Left sided hemiparesis with distortion of the joints, right lower limb strength 1/5, right upper limb strength 3/5. slurred speech. ) Psych/Mental Status: Mental status NL, Mood NL, Other (mildly agitated) laboratory and microbiology Laboratory Tests 09/12/24 03:20 Test 09/12/24 03:20 Range/Units Serum Glucose 132 H 74-106 mg/dL Microbiology Date/Time Source Procedure Growth Status 09/11/24 01:35 Blood Blood Culture - Preliminary NO GROWTH AFTER 24 HOURS OF INCUBATION. Resulted 09/11/24 00:41 Nose MRSA Screen - Final Complete 09/11/24 00:41 Voided Urine Urine Culture - Preliminary Resulted 09/11/24 00:31 Sputum Gram Stain Pending Resulted 09/11/24 00:31 Sputum Respiratory Culture - Preliminary Resulted Problem List/Assessment/Plan Problem List/Assessment/Plan Assessment and plan NEUROLOGY: Right sided fernando paresis likely repeated stroke leading to right hemiparesis with speech difficulty. ? Recurrent strokes despite on anticoagulation History of massive CVA with left sided hemiplegic Insomnia on as needed trazodone CARDIOVASCULAR: Paroxysmal atrial fibrillation with secondary hypercoagulable state Status post dual-chamber pacemaker Abott MRI friendly a-sensed v-paced Hypertensive heart disease, LVH: LVEF 65%. Mild LVH mild LV diastolic dysfunction Type II demand mediated NSTEMI, telemetry with conservative management Carotid stenosis ruled out: Bilateral carotid duplex from 06/30/2024 revealed no hemodynamically significant stenosis noted in the bilateral carotid system. Lower risk of significant coronary artery disease: Nuclear stress test from 05/24/2023 revealed ECG findings negative for ischemia and nuclear findings negative for ischemia on Aspirin, eliquis Obtained Echo RESPIRATORY: Aspiration pneumonia likely due to bulbar function B/l pneumonia gram +ve / gram -ve / atypicals Acute hypoxic respiratory failure on 6 L oxygen Pleural effusion Stop IV fluid Continue vancomycin and Cefepime 6L oxygen NC Pending Sputum culture GASTROINTESTINAL Failed swallow evaluation GERD with gastritis Protonix TPN METABOLIC Dyslipidemia Severe hypokalemia resolved obesity grade 1 replenish electrolytes GENITOURINARY Acute complicated cystitis Chronic hypothyroidism CAROLYN due to VMN ( baseline 0.87) Cefepime Judious IV use HEMATOLOGY Chronic macrocytic + iron deficient mixed anemia Monitor H& H closely and transfuse if hgb< 7 ENDOCRINE Hypothyroidism acute on chronic likely due to medication indiscretion Give levothyroxine 100mcg INFECTIOUS DISEASE Likely sepsis in the setting of aspiration pneumonia MRSA screen negative Continue vancomycin and Cefepime blood culture and urine culture pending SKIN Decubitus ulcer high risk Completely bed bound at home. Others History of Breast cancer IV access Central line: right sided IJV: double lumen 09/10/2024; discontinued 09/12/2024 Midline: right upper arm Drips: Levophed held Delgado's catheter in place 09/10/2024 DVT prophylaxis: already on eliquis GI prophylaxis: Protonix Diet: Jevity Disposition : to Telemetry Critical care time 45 minutes, Code status: full Advance care planning patient, daughter and Plan discussed with Dr. Priteo Plan discussed with: Patient, Spouse, Daughter My Orders My Orders Orders - [address] Procedure Category Date Status Time Apply Barrier Cream TARI 09/11/24 In Process 10:15 Pt Request For Service PT 09/11/24 Logged 17:43 Norepinephrine 8 PHA 09/11/24 In Process Mg/250ml Kit 18:45 Communication Order ORDERS 09/11/24 Transmitted 18:33 Clinimix Per Pharmacy PHA 09/11/24 In Process 22:00 Amino Acid Infusion PHA 09/11/24 In Process In D10w (Clinimix 4. 22:00 * Cardiology Consult CONS 09/12/24 Transmitted 07:20 Nutritional PHA 09/12/24 In Process Supplements (Jevity 15:15 Hydrocodone-Acet PHA 09/12/24 Verified 5/325mg Tab (Champion 16:45 Dietary Evaluation Review Comments: Cardiac Diet, iron supplementation. Follow up with nephrology consult Expected Outcomes/Goals: Gradual wt loss, improved nutrition related lab values. Date of Service: Sep 12, 2024 Billing Provider: NICK PRIETO MD Common Visit Codes: NOT BILLABLE [address] Sep 12, 2024 17:04 NICK PRIETO MD Sep 16, 2024 14:40
[2024-09-12] MEDS: HYDROcodone-ACET 5/325MG TAB GT PRN (17:34)
[2024-09-12] MEDS: FLUCONAZOLE 200MG/100ML 100 ML IV ONE (18:24)
[2024-09-13] VITALS (63 sets, daily range): BP systolic 68–143; BP diastolic 26–78; PULSE 70–100; RESP 10–30; TEMP 98–99; O2SAT 87–100
[2024-09-13] MEDS: FUROSEMIDE 20 MG/2 ML VIAL IV ONE ×3 (03:07→17:53)
[2024-09-13] MEDS: IPRATROPIUM BROM 0.5 MG/2.5ML INH SOL NEB PRN (03:24)
[2024-09-13] MEDS: LEVALBUTEROL HCL 1.25 MG/3 ML NEB NEB PRN (03:25)
--- NOTE | 2024-09-13 03:47 | DVH ---
CHEST RADIOGRAPH Indication: DESATURATION Technique: Single frontal view of the chest was obtained COMPARISON: XY CHEST XRAY 1 VIEW on DOS: 09/11/24, XY CHEST PORTABLE on DOS: 02/25/24, XY CHEST PORTABL E on DOS: 12/28/23, XY CHEST XRAY 1 VIEW on DOS: 09/16/23 FINDINGS: Lines and Tubes: Interval removal of right internal jugular central venous catheter. Enteric cathete r unchanged. Left anterior chest wall dual lead cardiac pacing device redemonstrated. Lungs: Progressive left basilar pulmonary airspace disease and pleural effusion. The right lung is gr ossly clear. No pneumothorax. Cardiomediastinal contours: Unremarkable Bones: Unremarkable IMPRESSION: 1. Interval progression in left basilar pulmonary airspace disease and pleural effusion. 2. Interval removal of right internal jugular central venous catheter. 3. Enteric catheter unchanged.
[2024-09-13 05:52] LABS: Potassium 3.8 mmol/L (3.5-5.1); Sodium 141 mmol/L (136-145)
[2024-09-13 05:53] LABS: Anion Gap 11 (5-15); Calcium 8.7 mg/dL (8.7-10.4); Carbon Dioxide 17 mmol/L (20-31); Chloride 113 mmol/L (98-107)
[2024-09-13 05:58] LABS: BUN/Creatinine Ratio 46.3 (10.0-20.0); Glucose 104 mg/dL (74-106)
[2024-09-13 05:59] LABS: Blood Urea Nitrogen 31 mg/dL (9-23)
[2024-09-13] MEDS ORDERED: LEVALBUTEROL HCL 1.25 MG/3 ML NEB NEB SCH (06:00)
[2024-09-13] MEDS: POTASSIUM CHL 20MEQ/100ML 100 ML IV ONE (06:15)
--- NOTE | 2024-09-13 09:39 | DVH ---
CHEST RADIOGRAPH Indication: re-evaluation Technique: Single frontal view of the chest was obtained Comparison: XY CHEST PORTABLE on DOS: 09/13/24, XY CHEST XRAY 1 VIEW on DOS: 09/11/24, XY CHEST PORTABLE on DOS: 02/25/24, XY CHEST PORTABLE on DOS: 12/28/23, XY CHEST XRAY 1 VIEW on DOS: 09/16/23, XY CHEST PORTABLE on DOS: 09/13/24 FINDINGS: Lines and Tubes: Enteric catheter unchanged. Left anterior chest wall dual lead cardiac pacing dev ice redemonstrated. Lungs: Progressive left basilar pulmonary airspace disease and pleural effusion. The right lung is gr ossly clear. No pneumothorax. Cardiomediastinal contours: Unremarkable Bones: Unremarkable IMPRESSION: 1. No change.
--- NOTE | 2024-09-13 10:36 | DVHPN2 ---
Progress Note - Dictate Date Seen: Sep 13, 2024 Has the PT tested + for MRSA If YES, has PT been informed?: No Medical Necessity Reason Pt with a Central, PICC or Fol: Yes The following are medically ne: Central Line Subjective Ms. Posada is a 73 years old right-handed female with a history of hypertension, atrial fibrillation, breast cancer, kidney stone, the patient was came to the hospital on 09/11/2024 with a chief company of shortness breath, general weakness, and the patient was found to have pneumonia, respiratory failure, hypotension, and the patient was admitted to ICU, the patient was also has other problems I have seen and examined the patient, I have discussed with her nurse, she is awake, oriented x2, follows verbal commands Talked to MRI, the scan is pending Navarro clearance Blood culture, 09/11/2024: WBC/HB/PLT/MCV, 09/11/2024: 8.5/9.9/225/99.5 PTT/INR/ABG, 09/11/2024: 13.5/1.3/45.9 HCO3, 09/11/2024:19 BUN/CR, 09/11/2024: 30/1.16 HGB A1c, 07/12/2019 5:4.5 Liver function tests, 09/11/2024: Unremarkable TG/HDL/LDL/HDL, 07/14/2024: 89/110/59/26 Vitamin B12, 07/2019 5:1114 Folic acid, 07/2024: 0.9 TSH, 09/11/2024: 15.09 Carotid Doppler, 06/30/24: No hemodynamically significant stenosis noted in the right carotid system. No hemodynamically significant stenosis noted in the left carotid system Current Doppler, 09/12/2024: No hemodynamically significant stenosis noted in the left carotid system. Chest x-ray, 09/11/2024: 1. Appropriate position of the support lines and tubes. 2. Bilateral pleural effusions. vital signs Vital Sign Date Time Temp Pulse Resp B/P (MAP) Pulse Ox O2 Delivery O2 Flow Rate FiO2 09/13/24 09:42 14 100 Nasal Cannula* 4 36 09/13/24 09:42 70 09/13/24 06:45 98.4 118/40 (66) 209.1 Total Intake and Output 609/12/24 09/13/24 15:00 23:00 07:00 Intake Total 336 ml 210 ml 70 ml Output Total 400 ml 500 ml Balance 336 ml -190 ml -430 ml medications Current Medications Medications Dose Ordered Sig/Miranda Route Start Time Stop Time Status Last Admin Dose Admin Nitroglycerin 0.4 mg Q5MINP PRN SL 09/11/24 00:30 Vancomycin HCl 0 ml @ 0 mls/hr UD IV 09/11/24 01:15 Pantoprazole Sodium 40 mg DAILY IV 09/11/24 10:00 09/13/24 08:55 40 MG Aspirin 81 mg DAILY NG 09/11/24 01:30 09/13/24 08:55 81 MG Apixaban 5 mg BID NG 09/11/24 10:00 09/13/24 08:55 5 MG Atorvastatin Calcium 40 mg HS NG 09/11/24 01:30 09/12/24 21:40 40 MG Trazodone HCl 25 mg HSPRN PRN NG 09/11/24 01:30 09/11/24 21:40 25 MG Tramadol HCl 50 mg Q6HP PRN NG 09/11/24 01:45 09/12/24 10:49 50 MG Levothyroxine Sodium 100 mcg DAILY IV 09/12/24 10:00 09/13/24 08:55 100 MCG Acetaminophen 650 mg Q6HP PRN PO 09/11/24 04:15 09/11/24 04:57 650 MG Cefepime HCl 50 ml @ 12.5 mls/hr Q12H IV 09/11/24 10:00 09/13/24 08:55 12.5 MLS/HR Norepinephrine Bitartrate 250 ml @ 3.75 mls/hr Q24H IV 09/11/24 18:45 Lorazepam 1 mg ONCE PRN IV 09/11/24 22:00 Enteral Nutritional Formula 1,000 ml 30ML/HR GT 09/12/24 15:15 Acetaminophen/ Hydrocodone Bitart 1 tab Q4HPRN PRN GT 09/12/24 16:45 09/13/24 04:26 1 TAB Fluconazole 100 ml @ 100 mls/hr DAILY@1800 IV 09/13/24 18:00 Ipratropium [place] 0.5 mg Q6HWA PRN NEB 09/13/24 03:00 09/13/24 03:24 0.5 MG Levalbuterol HCl 0.625 mg Q6HWA PRN NEB 09/13/24 03:15 09/13/24 03:25 0.625 MG objective General: the patient is well developed and nourished. No acute distress. MENTAL STATUS: Subjective SPEECH, LANGUAGE, HIGHER CORTICAL FUNCTION: Subjective CRANIAL NERVES: Pupils are equal, round and reactive. EOMs full and conjugate. Facial sensation intact in all three divisions bilaterally. Mandibular strength intact. Facial muscles symmetrical and strength intact. SENSATION: Sensation to touch and pinprick is finel. MOTOR: Normal tone in the upper and lower extremity. Normal muscle bulk. No fasciculations. No abnormal movements or posturing. She moves the arms, right 2/5, left: 0-1/5. Moves the legs slightly: 1./5 REFLEXES: Deep tendon reflexes normal and symmetrical. No pathological reflexes. CEREBELLAR/COORDINATION: Finger to nose and heel to gomez are normal bilaterally. GAIT/STATION: deferred. laboratory and microbiology Laboratory Tests 09/13/24 03:00 09/12/24 03:20 Test 09/13/24 03:00 Range/Units Serum Glucose 104 74-106 mg/dL Problem List Acute respiratory failure secondary to pneumonia Pneumonia, ? Aspiration Right sided weakness in 07/2024, rule out acute stroke Chronic stroke with residual left-sided hemiparesis Atrial fibrillation Coagulopathy Assessment/Plan Monitoring Supportive treatment Follow-up lab Blood culture MR brain scan Echocardiogram ICU care Stabilize vitals Respiratory support Oxygen Eliquis 5 mg b.i.d. Lipitor 40 mg daily GI prophylaxis More recommendation per clinical course This medical document was created using an electronic medical record system with [employer] dictation system. Although this document has been carefully reviewed, there may still be some phonetic and typographical errors. These areas are purely typographical due to imperfections of the software programs, and do not reflect any compromise in the patient's medical care. Prognosis poor Dietary Evaluation Review Comments: Cardiac Diet, iron supplementation. Follow up with nephrology consult Expected Outcomes/Goals: Gradual wt loss, improved nutrition related lab values. Plan discussed with: Other MARY RAMIREZ MD Sep 13, 2024 10:36
--- NOTE | 2024-09-13 13:17 | DVH ---
PROCEDURE: MRI BRAIN HEAD WO CONTRAST INDICATION: CVA EXAM DATE: 09/13/2024 11:48 AM COMPARISON: None TECHNIQUE: MRI of the brain without intravenous contrast. Limited stroke protocol. FINDINGS: Limited by motion. Diffusion weighted images of the brain demonstrate no evidence of acute infarction. There is no evidence of acute intracranial hemorrhage, extra-axial collection, mass effect, midline s hift, herniation or hydrocephalus. Ex vacuo dilation of the right lateral ventricle. 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 There are no definite signal abnormalities on the susceptibility weighted sequences. The major vascular flow voids are present. The visualized paranasal sinuses and mastoid air cells are clear. The surrounding soft tissues and o sseous structures are unremarkable. IMPRESSION: 1. Limited stroke protocol. Limited by motion. 2. No evidence of acute infarction, intracranial hemorrhage, mass effect or hydrocephalus. 3. Old right MCA infarct. Consider follow-up exam when patient is able to tolerate. HS:Y
[2024-09-13 13:33] LABS: Sodium 141 mmol/L (136-145)
[2024-09-13 13:34] LABS: Anion Gap 9 (5-15); Calcium 9.2 mg/dL (8.7-10.4)
[2024-09-13 13:39] LABS: BUN/Creatinine Ratio 41.7 (10.0-20.0); Blood Urea Nitrogen 30 mg/dL (9-23); Carbon Dioxide 19 mmol/L (20-31); Chloride 113 mmol/L (98-107); Glucose 108 mg/dL (74-106)
[2024-09-13 13:40] LABS: Magnesium 1.8 mg/dL (1.6-2.6)
[2024-09-13] MEDS: FLUCONAZOLE 200MG/100ML 100 ML IV SCH (16:15)
--- NOTE | 2024-09-13 17:36 | DVHPNRES ---
Progress Note Date Seen: Sep 13, 2024 Resident Creating Document: [address] RESIDENT Has the PT tested + for MRSA If YES, has PT been informed?: No Medical Necessity Reason Pt with a Central, PICC or Fol: Yes Medical Necessity Reason Patient seen and examined in ICU 109. Patient is on NC on 1 L oxygen and tolerating well.However, patient however, desaturated overnight. The night team was called had X-ray showing congestion.She received Lasix and felt better. Patient is currently on cefepime and vancomycin per pharmacy. Levoophed discontinue on 09/11/2024. Patient has been doing well with her blood pressure. Bedside swallow evaluation was unsuccessful. Patient was down graded to Telemetry yesterday, but given her frail stated and desaturation overnight, plan was to keep patient in ASHLYN/ICU status. Patient is followed by PT for strength. Subjective Review of Systems Constitutional: Yes: Weakness; No: Fever, Chills, Sweats, Malaise, Other Eyes: No: Pain, Vision change, Conjunctivae inflammation, Eyelid inflammation, Other, Redness ENT: No: Ear pain, Ear discharge, Nose pain, Nose discharge, Nose congestion, Mouth pain, Mouth swelling, Throat pain, Throat swelling, Other Respiratory: mild and week Cough, weak cough No: Dry, Wheezing, Hemoptysis, Pleuritic Pain, Wheezing, Other Cardiovascular: No: Chest Pain, Palpitations, Orthopnea, Paroxysmal Noc. Dyspnea, Edema, Lt Headedness, Other Gastrointestinal: No: Nausea, Vomiting, Abdominal Pain, Diarrhea, Constipation, Melena, Hematochezia, Other Genitourinary: No Dysuria, No Frequency, No Incontinence, No Hematuria, No Retention, No Other Musculoskeletal: No: other, neck pain, shoulder pain, arm pain, back pain, hand pain, leg pain, foot pain Skin: Lesions; No: Rash, Jaundice, Bruising, Other Neurological: Weakness, Change in speech; No: Numbness, Incoordination, Confusion, Seizures, Other Objective vital signs Vital Sign Date Time Temp Pulse Resp B/P (MAP) Pulse Ox O2 Delivery O2 Flow Rate FiO2 09/13/24 16:00 98.7 70 10 115/44 (67) 100 98.7 09/13/24 15:58 Nasal Cannula* 4 36 Total Intake and Output 09/12/24 09/12/24 09/13/24 15:00 23:00 07:00 Intake Total 336 ml 210 ml 70 ml Output Total 400 ml 500 ml Balance 336 ml -190 ml -430 ml medications Current Medications Medications Dose Ordered Sig/Miranda Route Start Time Stop Time Status Last Admin Dose Admin Nitroglycerin 0.4 mg Q5MINP PRN SL 09/11/24 00:30 Vancomycin HCl 0 ml @ 0 mls/hr UD IV 09/11/24 01:15 Pantoprazole Sodium 40 mg DAILY IV 09/11/24 10:00 09/13/24 08:55 40 MG Aspirin 81 mg DAILY NG 09/11/24 01:30 09/13/24 08:55 81 MG Apixaban 5 mg BID NG 09/11/24 10:00 09/13/24 08:55 5 MG Atorvastatin Calcium 40 mg HS NG 09/11/24 01:30 09/12/24 21:40 40 MG Trazodone HCl 25 mg HSPRN PRN NG 09/11/24 01:30 09/11/24 21:40 25 MG Tramadol HCl 50 mg Q6HP PRN NG 09/11/24 01:45 09/12/24 10:49 50 MG Levothyroxine Sodium 100 mcg DAILY IV 09/12/24 10:00 09/13/24 08:55 100 MCG Acetaminophen 650 mg Q6HP PRN PO 09/11/24 04:15 09/11/24 04:57 650 MG Cefepime HCl 50 ml @ 12.5 mls/hr Q12H IV 09/11/24 10:00 09/13/24 08:55 12.5 MLS/HR Norepinephrine Bitartrate 250 ml @ 3.75 mls/hr Q24H IV 09/11/24 18:45 Lorazepam 1 mg ONCE PRN IV 09/11/24 22:00 Enteral Nutritional Formula 1,000 ml 30ML/HR GT 09/12/24 15:15 Acetaminophen/ Hydrocodone Bitart 1 tab Q4HPRN PRN GT 09/12/24 16:45 09/13/24 12:22 1 TAB Fluconazole 100 ml @ 100 mls/hr DAILY@1800 IV 09/13/24 18:00 09/13/24 16:15 100 MLS/HR Ipratropium [place] 0.5 mg Q6HWA PRN NEB 09/13/24 03:00 09/13/24 03:24 0.5 MG Levalbuterol HCl 0.625 mg Q6HWA PRN NEB 09/13/24 03:15 09/13/24 03:25 0.625 MG Examination General Appearance: Alert, Oriented X3, Cooperative, mild distress, following instruction HEENT: Atraumatic, PERRLA, EOMI, Other (dry mucosa. ) Respiratory/chest: Other (b/l rales and crackles 6 l nc 95% spo2), right breast implant Cardiovascular: Regular rate, Normal S1, Normal S2, No murmurs, Other (80/min paced rhythm ), Abdominal: Normal bowel sounds, Soft, No hepatospenomegaly, No masses, Other (mild generalized tenderness. ) Extremities: No clubbing, No cyanosis, No edema, Normal pulses, Other (tenderness and pain to ) Skin: No significant lesion (mild blanching in the dependent back lower lumbar area. ) Neuro: Sensation intact, Cranial nerves 3-12 NL, Other (Left sided hemiparesis with distortion of the joints, right lower limb strength 1/5, right upper limb strength 3/5. slurred speech. ) Psych/Mental Status: Mental status NL, Mood NL, Other (mildly agitated) laboratory and microbiology Laboratory Tests 09/13/24 13:10 09/12/24 03:20 Test 09/13/24 13:10 Range/Units Serum Glucose 108 H 74-106 mg/dL Microbiology Date/Time Source Procedure Growth Status 09/11/24 01:35 Blood Blood Culture - Preliminary NO GROWTH AFTER 48 HOURS OF INCUBATION. Resulted 09/11/24 00:41 Nose MRSA Screen - Final Complete 09/11/24 00:41 Voided Urine Urine Culture - Preliminary Resulted 09/11/24 00:31 Sputum Gram Stain - Final Resulted 09/11/24 00:31 Sputum Respiratory Culture - Preliminary Resulted Problem List/Assessment/Plan Problem List/Assessment/Plan Assessment and plan NEUROLOGY: Right sided fernando paresis likely repeated stroke leading to right hemiparesis with speech difficulty. ? Recurrent strokes despite on anticoagulation History of massive CVA with left sided hemiplegic Insomnia on as needed trazodone MRI: No evidence of acute infarction, intracranial hemorrhage, mass effect or hydrocephalus.Old right MCA infarct. Consider follow-up exam when patient is able to tolerate. PT Evaluation on going CARDIOVASCULAR: Paroxysmal atrial fibrillation with secondary hypercoagulable state Status post dual-chamber pacemaker Abott MRI friendly a-sensed v-paced Hypertensive heart disease, LVH: LVEF 65%. Mild LVH mild LV diastolic dysfunction Type II demand mediated NSTEMI, telemetry with conservative management Carotid stenosis ruled out: Bilateral carotid duplex from 06/30/2024 revealed no hemodynamically significant stenosis noted in the bilateral carotid system. Lower risk of significant coronary artery disease: Nuclear stress test from 05/24/2023 revealed ECG findings negative for ischemia and nuclear findings negative for ischemia on Aspirin, eliquis Obtained Echo RESPIRATORY: Aspiration pneumonia likely due to bulbar function B/l pneumonia gram +ve / gram -ve / atypicals Acute hypoxic respiratory failure on 6 L oxygen Pleural effusion Stop IV fluid Continue vancomycin and Cefepime 1-4L oxygen NC Pending Sputum culture Lasix 20mg once 09/13/2024 GASTROINTESTINAL Failed swallow evaluation GERD with gastritis Protonix Jevity METABOLIC Dyslipidemia Severe hypokalemia resolved obesity grade 1 replenish electrolytes GENITOURINARY Acute complicated cystitis Chronic hypothyroidism CAROLYN due to VMN ( baseline 0.87) Fluconazole HEMATOLOGY Chronic macrocytic + iron deficient mixed anemia Monitor H& H closely and transfuse if hgb< 7 ENDOCRINE Hypothyroidism acute on chronic likely due to medication indiscretion Give levothyroxine 100mcg INFECTIOUS DISEASE Likely sepsis in the setting of aspiration pneumonia MRSA screen negative Continue vancomycin and Cefepime blood culture and urine culture pending SKIN Decubitus ulcer high risk Completely bed bound at home. Others History of Breast cancer IV access Central line: right sided IJV: double lumen 09/10/2024; discontinued 09/12/2024 Midline: right arm Drips: Levophed held Delgado's catheter in place 09/10/2024 DVT prophylaxis: already on eliquis GI prophylaxis: Protonix Diet: Jevity NO tolerating Swallow evaluation Disposition: ASHLYN/ICU status Critical care time 45 minutes, Code status: full Advance care planning patient, daughter and Plan discussed with Dr. Prieto Plan discussed with: Patient, Spouse My Orders My Orders Orders - [address] RESIDENT Procedure Category Date Status Time Chest Xray 1 View XY 09/13/24 Resulted 08:13 Electrocardigram EKG 09/13/24 Logged 16:07 Dietary Evaluation Review Comments: Cardiac Diet, iron supplementation. Follow up with nephrology consult Expected Outcomes/Goals: Gradual wt loss, improved nutrition related lab values. Date of Service: Sep 13, 2024 Billing Provider: NICK PRIETO MD Common Visit Codes: NOT BILLABLE YENIFERVAMSHI RESIDENT Sep 13, 2024 17:36 NICK PRIETO MD Sep 16, 2024 14:41
[2024-09-13 20:34] LABS: Base Excess -8.1 mmol/L (-2.0-3.0)
[2024-09-14] VITALS (106 sets, daily range): BP systolic 96–145; BP diastolic 30–75; PULSE 70–148; RESP 10–31; TEMP 97.8–99; O2SAT 83–100
[2024-09-14] MEDS: MAGNESIUM SULFATE 1GM/100ML 100 ML IV ONE (00:47)
[2024-09-14] MEDS: FUROSEMIDE 40 MG/4 ML VIAL IV SCH (00:48)
[2024-09-14 01:01] LABS: Basophils # (auto) 0 10 ^3/uL (0-0.2); Basophils % (auto) 0.4 % (0.0-2.0); Eosinophils # (auto) 0 10 ^3/uL (0-0.8); Eosinophils % (auto) 0.2 % (0.0-7.0); Hematocrit 27.7 % (36.0-46.0); Lymphocytes # (auto) 0.7 10 ^3/uL (0.4-5.4); Mean Corpuscular Hemoglobin 32.6 pg (28.0-32.0); Mean Corpuscular Hgb Conc. 32.5 g/dL (32.0-36.0); Mean Corpuscular Volume 100.3 fL (80.0-100.0); Monocytes # (auto) 0.9 10 ^3/uL (0-1.3); Monocytes % (auto) 7.5 % (0.0-12.0); Neutrophils # (auto) 10.2 10 ^3/uL (1.6-8.6); Neutrophils % (auto) 85.9 % (37.0-80.0); Platelet Count (auto) 290 10^3/uL (140-450); Red Blood Cells 2.76 10^6/uL (4.0-5.20); Red Cell Distribution Width 16.4 % (11.8-14.3); White Blood Cell 11.9 10^3/uL (4.4-10.8)
[2024-09-14] MEDS: HYDROCORTISONE SOD SUCC 100 MG/2ML INJ VIAL ONE (01:05)
[2024-09-14] MEDS: SODIUM BICARB 8.4% 50Meq/50ml SYR INJ ONE ×2 (01:05→05:06)
[2024-09-14 01:09] LABS: Base Excess -9.7 mmol/L (-2.0-3.0)
[2024-09-14 01:21] LABS: Alanine Aminotransferase 26 U/L (7-40); Albumin 3.6 g/dL (3.2-4.8); Anion Gap 9 (5-15); Aspartate Aminotransferase 32 U/L (13-40); BUN/Creatinine Ratio 40.3 (10.0-20.0); Calcium 8.7 mg/dL (8.7-10.4); Potassium 4.8 mmol/L (3.5-5.1); Sodium 139 mmol/L (136-145); Total Protein 6.1 g/dL (5.7-8.2)
--- NOTE | 2024-09-14 01:21 | PRN ---
RUBEN DOW RESIDENT 09/14/24 0121: Misceleneous Note Note Note #Worsening acute hypoxic respiratory failure, ARDS with recurrent aspiration, bulbar weakness, acidotic breathing, b/l crackles on 9L venturi mask> NRB 80% FIo2 #Chect Cbc Cmp Iron Panel and Trops lactate #Cefepime To Zosyn As Aao X 0 #rr and hr low with high secretion one dose' iv atropine 0.5 iv once dry out secretion, and augment hr. #Influenza to rule out, repeat Cxr #Iv Lasix 40 Bid citlaly #Titrate Down O2 To Keep Spo2 >94% , no baseline pulmonary pathology #Off Of All Opioids As Low Bp And Low RR #recurrent hypotension: check Cortisol , am cortisol #Stress dose, IV Steroid To Start To Wean Off The Levophed Keep Map > 65 #Afib + Old Infarct, repeat stroke on full anticoagulation near quadriplegic, recurrent aspiration, unable to protect airways #Repeat Neurocheks And Avoid Beer Criteria Drugs and cefepime #Wide QRS, low volate RBBB, rule out ACS, nonspecific ST segment changes ? de pression #Hb trending down no labs from primary team available today, will check and hold anticoagulation eliquis changed to sc lovenox prophylactic dose. #HnH stable, dced eliquis, started on lovenox #Septic shock, respiratory yeast infection with gram positive streptococcus, bcx -ve , afebrile recheck bcx #Recurrent aspiration with high secretion NTS with respiratory, strict NPO+ NG tube hold feeding #ABG reviewed worsening acidosis, mixed non aniongap respiratory + metabolic acidosis poor compensation, SPO2 and PaO2 satisfactory, risky for NIPPV iv bicarb one ampule and repeat abg in 3 hours. #Ideally intubation is a choice but will be extremely difficult to extubate, remains as full code, if worsens need to have a further discussion #Overall multisystem disease with poor life expectency, if continues to worse will have a goals of care discussion with family /Daughter for more compassionate approach #Earlier 09/13 AM discussed pulmonary options with primary team resident Dr. Loomis. Will signout further updates overnight to her. Needs close follow up, high risk of decompensation. NICK PRIETO MD 09/16/24 1443: Date of Service: Sep 14, 2024 Billing Provider: NICK PRIETO MD Common Visit Codes: NOT BILLABLE RUBEN DOW RESIDENT Sep 14, 2024 01:21 NICK PRIETO MD Sep 16, 2024 14:43
[2024-09-14] MEDS: ATROPINE SULF 1 MG/10ml SYR IV ONE (01:26)
[2024-09-14 01:28] LABS: Carbon Dioxide 17 mmol/L (20-31); Chloride 113 mmol/L (98-107)
[2024-09-14] MEDS: SODIUM BICARB 8.4% 50Meq/50ml SYR Vial IV ONE ×2 (01:28→05:07)
[2024-09-14] MEDS: HYDROCORTISONE SOD SUCC 100 MG/2ML INJ VIAL IV ONE (01:28)
[2024-09-14 01:29] LABS: Alkaline Phosphatase 120 U/L (46-116); Bilirubin, Total 0.3 mg/dL (0.2-1.0); Blood Urea Nitrogen 27 mg/dL (9-23); Glucose 141 mg/dL (74-106)
[2024-09-14 02:15] LABS: % Iron Saturation 9.3 % (15-50)
[2024-09-14 04:20] LABS: Base Excess -5.6 mmol/L (-2.0-3.0)
[2024-09-14] MEDS: METOPROLOL TARTRATE 1MG/1ML-5ML VIAL IV ONE ×3 (05:05→06:56)
[2024-09-14] MEDS: PIPERACILLIN-TAZOB 3.375GM 100 ML IV SCH (06:30)
--- NOTE | 2024-09-14 07:24 | ECG ---
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
--- NOTE | 2024-09-14 07:32 | ECG ---
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
--- NOTE | 2024-09-14 07:34 | ECG ---
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
--- NOTE | 2024-09-14 08:59 | DVHPN2 ---
Progress Note - Dictate Date Seen: Sep 14, 2024 Has the PT tested + for MRSA If YES, has PT been informed?: No Medical Necessity Reason Pt with a Central, PICC or Fol: Yes Subjective Ms. Posada is a 73 years old right-handed female with a history of hypertension, atrial fibrillation, breast cancer, kidney stone, the patient was came to the hospital on 09/11/2024 with a chief company of shortness breath, general weakness, and the patient was found to have pneumonia, respiratory failure, hypotension, and the patient was admitted to ICU, the patient was also has other problems I have seen and examined the patient, I have discussed with her nurse, she is awake, oriented x2, follows verbal commands, her voice is very weak Blood culture, 09/11/2024: WBC/HB/PLT/MCV, 09/11/2024: 8.5/9.9/225/99.5 PTT/INR/ABG, 09/11/2024: 13.5/1.3/45.9 HCO3, 09/11/2024:19 BUN/CR, 09/11/2024: 30/1.16 HGB A1c, 07/12/2019 5:4.5 Liver function tests, 09/11/2024: Unremarkable TG/HDL/LDL/HDL, 07/14/2024: 89/110/59/26 Vitamin B12, 07/2019 5:1114 Folic acid, 07/2024: 0.9 TSH, 09/11/2024: 15.09 Carotid Doppler, 06/30/24: No hemodynamically significant stenosis noted in the right carotid system. No hemodynamically significant stenosis noted in the left carotid system Current Doppler, 09/12/2024: No hemodynamically significant stenosis noted in the left carotid system. Chest x-ray, 09/11/2024: 1. Appropriate position of the support lines and tubes. 2. Bilateral pleural effusions. MRI head, 09/13/2024: 1. Limited stroke protocol. Limited by motion.2. No evidence of acute infarction, intracranial hemorrhage, mass effect or hydrocephalus. 3. Old right MCA infarct. Consider follow-up exam when patient is able to tolerate vital signs Vital Sign Date Time Temp Pulse Resp B/P (MAP) Pulse Ox O2 Delivery O2 Flow Rate FiO2 09/14/24 07:15 70 12 96/49 (65) 100 09/14/24 06:00 Simple Mask* 6 50 09/14/24 04:00 98.0 98.0 Total Intake and Output 09/13/24 09/13/24 09/14/24 15:00 23:00 07:00 Intake Total 56.25 ml 316.25 ml Output Total 1400 ml 2000 ml Balance -1343.75 ml -1683.75 ml medications Current Medications Medications Dose Ordered Sig/Miranda Route Start Time Stop Time Status Last Admin Dose Admin Nitroglycerin 0.4 mg Q5MINP PRN SL 09/11/24 00:30 Vancomycin HCl 0 ml @ 0 mls/hr UD IV 09/11/24 01:15 Pantoprazole Sodium 40 mg DAILY IV 09/11/24 10:00 09/13/24 08:55 40 MG Aspirin 81 mg DAILY NG 09/11/24 01:30 09/13/24 08:55 81 MG Atorvastatin Calcium 40 mg HS NG 09/11/24 01:30 09/13/24 21:33 40 MG Trazodone HCl 25 mg HSPRN PRN NG 09/11/24 01:30 09/11/24 21:40 25 MG Levothyroxine Sodium 100 mcg DAILY IV 09/12/24 10:00 09/13/24 08:55 100 MCG Acetaminophen 650 mg Q6HP PRN PO 09/11/24 04:15 09/11/24 04:57 650 MG Norepinephrine Bitartrate 250 ml @ 3.75 mls/hr Q24H IV 09/11/24 18:45 09/13/24 19:57 3.75 MLS/HR Lorazepam 1 mg ONCE PRN IV 09/11/24 22:00 Enteral Nutritional Formula 1,000 ml 30ML/HR GT 09/12/24 15:15 Fluconazole 100 ml @ 100 mls/hr DAILY@1800 IV 09/13/24 18:00 09/13/24 16:15 100 MLS/HR Ipratropium [place] 0.5 mg Q6HWA PRN NEB 09/13/24 03:00 09/14/24 05:28 0.5 MG Levalbuterol HCl 0.625 mg Q6HWA PRN NEB 09/13/24 03:15 09/14/24 05:28 0.625 MG Piperacillin Sod/ Tazobactam Sod 100 ml @ 25 mls/hr Q8HR IV 09/14/24 06:30 Furosemide 40 mg BIDD IV 09/14/24 06:00 09/14/24 05:58 40 MG Hydrocortisone Sodium Succinate 50 mg Q6HR IV 09/14/24 12:00 Enoxaparin Sodium 40 mg DAILY SC 09/14/24 10:00 objective General: the patient is well developed and nourished. No acute distress. MENTAL STATUS: Subjective SPEECH, LANGUAGE, HIGHER CORTICAL FUNCTION: Subjective CRANIAL NERVES: Pupils are equal, round and reactive. EOMs full and conjugate. Facial sensation intact in all three divisions bilaterally. Mandibular strength intact. Facial muscles symmetrical and strength intact. SENSATION: Sensation to touch and pinprick is finel. MOTOR: Normal tone in the upper and lower extremity. Normal muscle bulk. No fasciculations. No abnormal movements or posturing. She moves the arms, right 1-2/5, left: 0/5. Moves the legs slightly: 1/5 REFLEXES: Deep tendon reflexes normal and symmetrical. No pathological reflexes. CEREBELLAR/COORDINATION: Deferred GAIT/STATION: deferred. laboratory and microbiology Laboratory Tests 09/14/24 00:50 Test 09/14/24 00:50 Range/Units Serum Glucose 141 H 74-106 mg/dL Problem List Acute respiratory failure secondary to pneumonia Pneumonia, ? Aspiration Right sided weakness in 07/2024, rule out acute stroke Chronic stroke with residual left-sided hemiparesis Atrial fibrillation Coagulopathy Assessment/Plan Monitoring Supportive treatment Follow-up lab Blood culture Echocardiogram ICU care Stabilize vitals Respiratory support Oxygen Eliquis 5 mg b.i.d. Lipitor 40 mg daily GI prophylaxis More recommendation per clinical course This medical document was created using an electronic medical record system with [employer] dictation system. Although this document has been carefully reviewed, there may still be some phonetic and typographical errors. These areas are purely typographical due to imperfections of the software programs, and do not reflect any compromise in the patient's medical care. Prognosis poor Dietary Evaluation Review Comments: Cardiac Diet, iron supplementation. Follow up with nephrology consult Expected Outcomes/Goals: Gradual wt loss, improved nutrition related lab values. Plan discussed with: Other MARY RAMIREZ MD Sep 14, 2024 08:59
[2024-09-14] MEDS: ENOXAPARIN SOD 40 MG/0.4 ML SYRINGE SC SCH (10:18)
--- NOTE | 2024-09-14 10:43 | DVH ---
Procedure: CT CHEST WITHOUT CONTRAST Reason for study/Clinical History: RECURRENT DESATURATION Comparison Study: US CHEST ULTRASOUND on DOS: 09/11/24 Exam Date: 09/14/2024 09:40 AM TECHNIQUE: Multidetector CT of the chest was performed from the lung apices to the upper abdomen with out the use of intravenous contract. Axial, coronal and sagittal multiplanar reformats were performed . Radiation Dose Information: CT Dose: CTDI volume is 20.02 mGy. Dose-length product is 634.67 mGy*cm The dose indicators for CT are the volume Computed Tomography (CT) Dose Index (CTDIvol) and the Dose Length Product (DLP), and are measured in units of mGy and mGy-cm, respectively. These indicators are not patient dose, but values generated from the CT scanner acquisition factors. The report includes radiation exposure data for exposures received during this examination. FINDINGS: Dual lead left chest wall AICD / pacemaker in place. Enteric tube terminates in the stomach. Lower neck: Normal thyroid. Lungs: Patchy ground glass opacities in the bilateral upper lobes. Mucus / debris layering in the tra brock, right mainstem bronchus, and bronchus intermedius. There is mucus plugging in the right lower l obe with right lower lobe consolidation with bronchograms. There is also consolidation with air bronc hograms grams in the left lower lobe, right middle lobe and subsegmental atelectasis in the left uppe r lobe. Elevated right hemidiaphragm. Heart/Vascular Structures: Mild cardiomegaly. Coronary artery calcifications. No pericardial effusion . [id number] atherosclerotic calcifications of the aorta. Lymph Nodes: No adenopathy Pleura: Trace left pleural fusion. No pneumothorax. Musculoskeletal: No acute osseous abnormality. Soft tissues: Normal. Upper abdomen: Status post cholycystectomy. IMPRESSION: 1. Consolidations with air bronchograms in the bilateral lower lobes with evidence of mucus plugging , suspicious for aspiration. 2. Patchy ground glass opacities in the upper lobes bilaterally, likely infectious or inflammatory in nature. 3. Mild cardiomegaly with coronary artery disease. [id number] atherosclerotic vascular disease. Radiation optimization: All CT scans at this facility use at least one of these dose optimization moses hniques: automated exposure control mA and/or kV adjustment per patient size (includes targeted exam s where dose is matched to clinical indication) or iterative reconstruction.
[2024-09-14] MEDS: NOREPINEPHRINE 8 MG/250ML KIT 250 ML IV SCH (11:52)
[2024-09-14] MEDS: IRON SUCROSE COMPLEX 110 ML IV SCH (12:00)
[2024-09-14] MEDS: HYDROCORTISONE SOD SUCC 100 MG/2ML INJ VIAL IV SCH (12:48)
--- NOTE | 2024-09-14 14:00 | DVHPNRES ---
Progress Note Date Seen: Sep 14, 2024 Resident Creating Document: [address] RESIDENT Has the PT tested + for MRSA If YES, has PT been informed?: No Medical Necessity Reason Pt with a Central, PICC or Fol: No (mid line) Medical Necessity Reason Patient seen this morning. Patient desaturated last night around 8 pm showing evidence of worsening acute hypoxic respiratory failure, ARDS and recurrent aspiration. CT chest showed showed Consolidations with air bronchograms in the bilateral lower lobes with evidence of mucus plugging, suspicious for aspiration.Patchy ground glass opacities in the upper lobes bilaterally, likely infectious or inflammatory in nature. Wbc was 11.9, lactic acid now. Antibiotics was changed to zosyn. Blood culture from on admission was negative. Levophed resume. At the time of my assess patient was doing a little better on 2mcg/min Levophed. Daughter at the bedside. Plan was to get PEG for feeding and patient has only One IV access, so we planed to give her a PICC line. This afternoon, Patient desaturated again. Repeat chest x-ray showed Interval worsening of right upper lobe pneumonia.Family was at bedside and they are considering home hospice. He is off Levophed at the moment at 1700 Subjective Review of Systems Constitutional: Yes: Weakness; No: Fever, Chills, Sweats, Malaise, Other; voice not audible Eyes: No: Pain, Vision change, Conjunctivae inflammation, Eyelid inflammation, Other, Redness ENT: No: Ear pain, Ear discharge, Nose pain, Nose discharge, Nose congestion, Mouth pain, Mouth swelling, Throat pain, Throat swelling, Other Respiratory: mild and week Cough, weak cough No: Dry, Wheezing, Hemoptysis, Pleuritic Pain, Wheezing, Other Cardiovascular: No: Chest Pain, Palpitations, Orthopnea, Paroxysmal Noc. Dyspnea, Edema, Lt Headedness, Other Gastrointestinal: abdominal pain right sided, No bowel movement since the 09/11 Genitourinary: No Dysuria, No Frequency, No Incontinence, No Hematuria, No Retention, No Other Musculoskeletal: No: other, neck pain, shoulder pain, arm pain, back pain, hand pain, leg pain, foot pain Skin: Lesions; No: Rash, Jaundice, Bruising, Other Neurological: Weakness, Change in speech; No: Numbness, Incoordination, Confusion, Seizures, Other Objective vital signs Vital Sign Date Time Temp Pulse Resp B/P (MAP) Pulse Ox O2 Delivery O2 Flow Rate FiO2 09/14/24 12:30 93 18 110/44 (66) 100 09/14/24 12:15 Nasal Cannula* 4 36 09/14/24 12:15 98.9 98.9 Total Intake and Output 09/13/24 09/13/24 09/14/24 15:00 23:00 07:00 Intake Total 56.25 ml 316.25 ml Output Total 1400 ml 2000 ml Balance -1343.75 ml -1683.75 ml medications Current Medications Medications Dose Ordered Sig/Miranda Route Start Time Stop Time Status Last Admin Dose Admin Nitroglycerin 0.4 mg Q5MINP PRN SL 09/11/24 00:30 Vancomycin HCl 0 ml @ 0 mls/hr UD IV 09/11/24 01:15 Pantoprazole Sodium 40 mg DAILY IV 09/11/24 10:00 09/14/24 10:18 40 MG Aspirin 81 mg DAILY NG 09/11/24 01:30 09/14/24 10:18 81 MG Atorvastatin Calcium 40 mg HS NG 09/11/24 01:30 09/13/24 21:33 40 MG Trazodone HCl 25 mg HSPRN PRN NG 09/11/24 01:30 09/11/24 21:40 25 MG Levothyroxine Sodium 100 mcg DAILY IV 09/12/24 10:00 09/14/24 10:18 100 MCG Acetaminophen 650 mg Q6HP PRN PO 09/11/24 04:15 09/11/24 04:57 650 MG Lorazepam 1 mg ONCE PRN IV 09/11/24 22:00 Enteral Nutritional Formula 1,000 ml 30ML/HR GT 09/12/24 15:15 Fluconazole 100 ml @ 100 mls/hr DAILY@1800 IV 09/13/24 18:00 09/13/24 16:15 100 MLS/HR Ipratropium [place] 0.5 mg Q6HWA PRN NEB 09/13/24 03:00 09/14/24 11:58 0.5 MG Levalbuterol HCl 0.625 mg Q6HWA PRN NEB 09/13/24 03:15 09/14/24 11:58 0.625 MG Piperacillin Sod/ Tazobactam Sod 100 ml @ 25 mls/hr Q8HR IV 09/14/24 06:30 Furosemide 40 mg BIDD IV 09/14/24 06:00 09/14/24 05:58 40 MG Hydrocortisone Sodium Succinate 50 mg Q6HR IV 09/14/24 12:00 09/14/24 12:48 50 MG Enoxaparin Sodium 40 mg DAILY SC 09/14/24 10:00 09/14/24 10:18 40 MG Iron Sucrose 110 ml @ 110 mls/hr DAILY@1200 IV 09/14/24 12:00 09/18/24 12:59 Norepinephrine Bitartrate 250 ml @ 1.875 mls/ hr Q24H IV 09/14/24 11:00 09/14/24 11:52 1.875 MLS/HR Examination General Appearance: Alert, Oriented X3, Cooperative, mild distress, following instruction HEENT: Atraumatic, PERRLA, EOMI, Other (dry mucosa. ) Respiratory/chest: mild crackles, NC 4L oxygen, right breast implant Cardiovascular: Regular rate, Normal S1, Normal S2, No murmurs, Other (80/min paced rhythm ), Abdominal: Normal bowel sounds, Soft, No hepatospenomegaly, No masses, Other (mild generalized tenderness); No bowel movement since 09/11 Extremities: No clubbing, No cyanosis, No edema, Normal pulses, Other (tenderness and pain to ) Skin: No significant lesion (mild blanching in the dependent back lower lumbar area. ) Neuro: Sensation intact, Cranial nerves 3-12 NL, Other (Left sided hemiparesis with distortion of the joints, right lower limb strength 1/5, right upper limb strength 3/5. slurred speech. ) Psych/Mental Status: Mental status NL, Mood NL, laboratory and microbiology Laboratory Tests 09/14/24 00:50 Test 09/14/24 00:50 Range/Units Serum Glucose 141 H 74-106 mg/dL Microbiology Date/Time Source Procedure Growth Status 09/11/24 01:35 Blood Blood Culture - Preliminary NO GROWTH AFTER 72 HOURS OF INCUBATION. Resulted 09/11/24 00:41 Nose MRSA Screen - Final Complete 09/11/24 00:41 Voided Urine Urine Culture - Final Yeast, not Viridiana albicans Complete 09/11/24 00:31 Sputum Gram Stain - Final Resulted 09/11/24 00:31 Sputum Respiratory Culture - Preliminary Resulted Problem List/Assessment/Plan Problem List/Assessment/Plan Assessment and plan NEUROLOGY: Right sided hemiparesis likely repeated stroke leading to right hemiparesis with speech difficulty. ? Recurrent strokes despite on anticoagulation History of massive CVA with left sided hemiplegic Insomnia on as needed trazodone CARDIOVASCULAR: Paroxysmal atrial fibrillation with secondary hypercoagulable state Status post dual-chamber pacemaker Abott MRI friendly a-sensed v-paced Hypertensive heart disease, LVH: LVEF 65%. Mild LVH mild LV diastolic dysfunction Type II demand mediated NSTEMI, telemetry with conservative management Carotid stenosis ruled out: Bilateral carotid duplex from 06/30/2024 revealed no hemodynamically significant stenosis noted in the bilateral carotid system. Wide QRS, low voltage RBBB Lower risk of significant coronary artery disease: Nuclear stress test from 05/24/2023 revealed ECG findings negative for ischemia and nuclear findings negative for ischemia CT Chest 09/14: Mild cardiomegaly with coronary artery disease. [id number] atherosclerotic vascular disease. on Aspirin, eliquis Obtained Echo result pending RESPIRATORY: Aspiration pneumonia likely due to bulbar function B/l pneumonia gram +ve / gram -ve / atypicals Acute hypoxic respiratory failure on 6 L oxygen Pleural effusion ARDS due to possible aspiration pneumonitis - CT chest 09/14: Consolidations with air bronchograms in the bilateral lower lobes with evidence of mucus plugging, suspicious for aspiration. Patchy ground glass opacities in the upper lobes bilaterally, likely infectious or inflammatory in nature. X-ray( 09/14/2024) : Interval worsening of right upper lobe pneumonia. Stop IV fluid Continue vancomycin and Zosyn 4L oxygen NC Sputum culture: No growth GASTROINTESTINAL Failed swallow evaluation GERD with gastritis Protonix TPN Plan GI consult for PEG Lactulose for constipation METABOLIC Dyslipidemia Severe hypokalemia resolved obesity grade 1 replenish electrolytes GENITOURINARY Acute complicated cystitis, Yeast positive, No albicans Chronic hypothyroidism CAROLYN due to VMN ( baseline 0.87) fluconazole HEMATOLOGY Chronic macrocytic + iron deficient mixed anemia Monitor H& H closely and transfuse if hgb< 7 ENDOCRINE Hypothyroidism acute on chronic likely due to medication indiscretion Give levothyroxine 100mcg INFECTIOUS DISEASE Septic shock Likely sepsis in the setting of aspiration pneumonia MRSA screen negative Continue vancomycin and zosyn Levophed ( held) PICC line for IV antibiotics; unable to obtain 09/14/2024 SKIN Decubitus ulcer high risk Completely bed bound at home. Others History of Breast cancer IV access Central line: right sided IJV: double lumen 09/10/2024; discontinued 09/12/2024 Midline: right upper arm 09/12/2024 Drips: Levophed RESUME 09/13/2024 due to hypotension Delgado's catheter in place 09/10/2024 DVT prophylaxis: already on eliquis GI prophylaxis: Protonix Diet: Jevity Disposition: ICU status Goal of care: Face is considering home hospice; but full code at this time; Toradol for pain and Critical care time 45 minutes, Code status: full Advance care planning patient, daughter and Plan discussed with Dr. Prieto Plan discussed with: Patient My Orders My Orders Orders - [address] Procedure Category Date Status Time Norepinephrine 8 PHA 09/14/24 In Process Mg/250ml Kit 11:00 * Picc Line Consult CONS 09/14/24 Transmitted 11:34 *[facility] CONS 09/14/24 Transmitted 11:34 Complete Blood Count LAB 09/15/24 Verified 04:00 Basic Metabolic Panel LAB 09/15/24 Verified 04:00 Chest Xray 1 View XY 09/14/24 Transmitted 13:47 Dietary Evaluation Review Comments: Cardiac Diet, iron supplementation. Follow up with nephrology consult Expected Outcomes/Goals: Gradual wt loss, improved nutrition related lab values. Date of Service: Sep 14, 2024 Billing Provider: NICK PRIETO MD Common Visit Codes: NOT BILLABLE [address] Sep 14, 2024 14:00 NICK PRIETO MD Sep 16, 2024 14:42
--- NOTE | 2024-09-14 14:47 | DVH ---
CHEST RADIOGRAPH Indication: PROTOCOL Technique: Single frontal view of the chest was obtained Comparison: XY CHEST XRAY 1 VIEW on DOS: 09/13/24, XY CHEST PORTABLE on DOS: 09/13/24, XY CHEST XRAY 1 VIEW on DOS: 09/11/24, XY CHEST PORTABLE on DOS: 02/25/24, XY CHEST PORTABLE on DOS: 12/28/23, XY CHEST PORTABLE on DOS: 09/13/24 FINDINGS: Lines and Tubes: Nasogastric tip in the stomach. Left pacemaker. Lungs: Worsening multifocal pneumonia. No pneumothorax. Cardiomediastinal contours: Unremarkable Bones: Unremarkable IMPRESSION: Interval worsening of right upper lobe pneumonia.
[2024-09-14] MEDS: LACTULOSE 20Gm/30ML SOLN NG ONE (17:57)
[2024-09-14] MEDS: KETOROLAC TROMETH 30 MG/ML 1ML VIAL IV ONE (17:58)
[2024-09-14] MEDS: traZODone HCL 50 MG TAB PO SCH (23:56)
[2024-09-14] MEDS: KETOROLAC TROMETH 30 MG/ML 1ML VIAL IV PRN (23:56)
[2024-09-14] MEDS: traZODone HCL 50 MG TAB ONE (23:57)
[2024-09-15] VITALS (106 sets, daily range): BP systolic 68–136; BP diastolic 34–79; PULSE 70–143; RESP 10–22; TEMP 97.5–98.4; O2SAT 91–100
[2024-09-15 03:57] LABS: Basophils # (auto) 0 10 ^3/uL (0-0.2); Basophils % (auto) 0.1 % (0.0-2.0); Eosinophils # (auto) 0 10 ^3/uL (0-0.8); Hematocrit 25.4 % (36.0-46.0); Hemoglobin 8.5 g/dL (12.2-16.2); Lymphocytes # (auto) 0.8 10 ^3/uL (0.4-5.4); Lymphocytes % (auto) 7.7 % (10.0-50.0); Mean Corpuscular Hemoglobin 32.7 pg (28.0-32.0); Mean Corpuscular Hgb Conc. 33.6 g/dL (32.0-36.0); Mean Corpuscular Volume 97.4 fL (80.0-100.0); Monocytes # (auto) 0.4 10 ^3/uL (0-1.3); Monocytes % (auto) 4.2 % (0.0-12.0); Nucleated Red Blood Cells % 0.1 %; Platelet Count (auto) 232 10^3/uL (140-450); Red Blood Cells 2.61 10^6/uL (4.0-5.20); Red Cell Distribution Width 15.7 % (11.8-14.3); White Blood Cell 10.2 10^3/uL (4.4-10.8)
[2024-09-15 04:05] LABS: Anion Gap 10 (5-15); Carbon Dioxide 25 mmol/L (20-31); Potassium 3.6 mmol/L (3.5-5.1); Sodium 144 mmol/L (136-145)
[2024-09-15 04:06] LABS: Calcium 8.5 mg/dL (8.7-10.4); Chloride 109 mmol/L (98-107)
[2024-09-15 04:11] LABS: BUN/Creatinine Ratio 37.8 (10.0-20.0); Blood Urea Nitrogen 31 mg/dL (9-23); Glucose 143 mg/dL (74-106)
--- NOTE | 2024-09-15 06:26 | DVH ---
CHEST RADIOGRAPH Indication: 0500 Technique: Single frontal view of the chest was obtained Comparison: XY CHEST XRAY 1 VIEW on DOS: 09/14/24 FINDINGS: Lines and Tubes: Enteric tube terminates in the stomach. There is a dual-chamber pacemaker with right atrial and ventricular leads. Lungs: Bibasilar airspace disease. Pleura: No effusion. No pneumothorax. Cardiomediastinal contours: Unremarkable Bones: No acute osseous abnormality. IMPRESSION: 1. Bibasilar airspace disease which may reflect sequelae of aspiration.
--- NOTE | 2024-09-15 09:07 | DVHPN2 ---
Progress Note - Dictate Date Seen: Sep 15, 2024 Has the PT tested + for MRSA If YES, has PT been informed?: No Medical Necessity Reason Pt with a Central, PICC or Fol: No (mid line) Subjective Ms. Posada is a 73 years old right-handed female with a history of hypertension, atrial fibrillation, breast cancer, kidney stone, the patient was came to the hospital on 09/11/2024 with a chief company of shortness breath, general weakness, and the patient was found to have pneumonia, respiratory failure, hypotension, and the patient was admitted to ICU, the patient was also has other problems I have seen and examined the patient, I have discussed with her nurse, she is awake, oriented to person, place, she knows year and the month, her voice still very weak but is stronger today, she is very emotional because she wants to go home She only moves right arm a little bit Blood culture, 09/11/2024: WBC/HB/PLT/MCV, 09/11/2024: 8.5/9.9/225/99.5 PTT/INR/ABG, 09/11/2024: 13.5/1.3/45.9 HCO3, 09/11/2024:19 BUN/CR, 09/11/2024: 30/1.16 HGB A1c, 07/12/2019 5:4.5 Liver function tests, 09/11/2024: Unremarkable TG/HDL/LDL/HDL, 07/14/2024: 89/110/59/26 Vitamin B12, 07/2019 5:1114 Folic acid, 07/2024: 0.9 TSH, 09/11/2024: 15.09 Carotid Doppler, 06/30/24: No hemodynamically significant stenosis noted in the right carotid system. No hemodynamically significant stenosis noted in the left carotid system Current Doppler, 09/12/2024: No hemodynamically significant stenosis noted in the left carotid system. Chest x-ray, 09/11/2024: 1. Appropriate position of the support lines and tubes. 2. Bilateral pleural effusions. MRI head, 09/13/2024: 1. Limited stroke protocol. Limited by motion.2. No evidence of acute infarction, intracranial hemorrhage, mass effect or hydrocephalus. 3. Old right MCA infarct. Consider follow-up exam when patient is able to tolerate vital signs Vital Sign Date Time Temp Pulse Resp B/P (MAP) Pulse Ox O2 Delivery O2 Flow Rate FiO2 09/15/24 08:45 80 13 108/34 (58) 98 09/15/24 08:00 97.5 97.5 09/15/24 07:50 Nasal Cannula* 4 36 Total Intake and Output 09/14/24 09/14/24 09/15/24 15:00 23:00 07:00 Intake Total 61.875 ml 468 ml 393.750 ml Output Total 1400 ml 100 ml Balance 61.875 ml -932 ml 293.750 ml medications Current Medications Medications Dose Ordered Sig/Miranda Route Start Time Stop Time Status Last Admin Dose Admin Nitroglycerin 0.4 mg Q5MINP PRN SL 09/11/24 00:30 Vancomycin HCl 0 ml @ 0 mls/hr UD IV 09/11/24 01:15 Pantoprazole Sodium 40 mg DAILY IV 09/11/24 10:00 09/15/24 08:23 40 MG Aspirin 81 mg DAILY NG 09/11/24 01:30 09/15/24 08:23 81 MG Atorvastatin Calcium 40 mg HS NG 09/11/24 01:30 09/14/24 21:38 40 MG Levothyroxine Sodium 100 mcg DAILY IV 09/12/24 10:00 09/15/24 08:23 100 MCG Acetaminophen 650 mg Q6HP PRN PO 09/11/24 04:15 09/14/24 20:58 650 MG Lorazepam 1 mg ONCE PRN IV 09/11/24 22:00 Enteral Nutritional Formula 1,000 ml 30ML/HR GT 09/12/24 15:15 Fluconazole 100 ml @ 100 mls/hr DAILY@1800 IV 09/13/24 18:00 09/14/24 17:53 100 MLS/HR Ipratropium [place] 0.5 mg Q6HWA PRN NEB 09/13/24 03:00 09/14/24 11:58 0.5 MG Levalbuterol HCl 0.625 mg Q6HWA PRN NEB 09/13/24 03:15 09/14/24 11:58 0.625 MG Piperacillin Sod/ Tazobactam Sod 100 ml @ 25 mls/hr Q8HR IV 09/14/24 06:30 09/15/24 05:47 25 MLS/HR Furosemide 40 mg BIDD IV 09/14/24 06:00 09/15/24 05:47 40 MG Hydrocortisone Sodium Succinate 50 mg Q6HR IV 09/14/24 12:00 09/15/24 05:46 50 MG Enoxaparin Sodium 40 mg DAILY SC 09/14/24 10:00 09/15/24 08:24 40 MG Iron Sucrose 110 ml @ 110 mls/hr DAILY@1200 IV 09/14/24 12:00 09/18/24 12:59 Norepinephrine Bitartrate 250 ml @ 1.875 mls/ hr Q24H IV 09/14/24 11:00 09/15/24 00:49 1.875 MLS/HR Ketorolac Tromethamine 15 mg Q6HPRN PRN IV 09/15/24 00:00 09/20/24 00:00 09/15/24 08:23 15 MG Trazodone HCl 50 mg HS PO 09/15/24 23:45 09/14/24 23:56 50 MG objective General: the patient is well developed and nourished. No acute distress. MENTAL STATUS: Subjective SPEECH, LANGUAGE, HIGHER CORTICAL FUNCTION: Subjective CRANIAL NERVES: Pupils are equal, round and reactive. EOMs full and conjugate. Facial sensation intact in all three divisions bilaterally. Mandibular strength intact. Facial muscles symmetrical and strength intact. SENSATION: Sensation to touch and pinprick is finel. MOTOR: Normal tone in the upper and lower extremity. Normal muscle bulk. No fasciculations. No abnormal movements or posturing. Muscle power is: arms, right 1-2/5, left: 0/5. Legs: 0/5 REFLEXES: Deep tendon reflexes normal and symmetrical. No pathological reflexes. CEREBELLAR/COORDINATION: Deferred GAIT/STATION: deferred. laboratory and microbiology Laboratory Tests 09/15/24 03:22 Test 09/15/24 03:22 Range/Units Serum Glucose 143 H 74-106 mg/dL Problem List Acute respiratory failure secondary to pneumonia Pneumonia, ? Aspiration Right sided weakness in 07/2024, rule out acute stroke Chronic stroke with residual left-sided hemiparesis Atrial fibrillation Coagulopathy Assessment/Plan Monitoring Supportive treatment Follow-up lab Blood culture Echocardiogram ICU care Stabilize vitals Respiratory support Oxygen Eliquis 5 mg b.i.d. Lipitor 40 mg daily GI prophylaxis More recommendation per clinical course This medical document was created using an electronic medical record system with [employer] dictation system. Although this document has been carefully reviewed, there may still be some phonetic and typographical errors. These areas are purely typographical due to imperfections of the software programs, and do not reflect any compromise in the patient's medical care. Prognosis poor Dietary Evaluation Review Comments: Cardiac Diet, iron supplementation. Follow up with nephrology consult Expected Outcomes/Goals: Gradual wt loss, improved nutrition related lab values. Plan discussed with: Other MARY RAMIREZ MD Sep 15, 2024 09:07
[2024-09-15] MEDS: MORPHINE SULFATE INJ 2 MG/ml SYRG IV PRN (11:26)
[2024-09-15] MEDS ORDERED: AMIODARONE 360mg/200mL PREMIX 200 ML IV ONE (12:30)
[2024-09-15] MEDS: METOPROLOL TARTRATE 1MG/1ML-5ML VIAL IV ONE (13:00)
--- NOTE | 2024-09-15 17:46 | DVHPNRES ---
Progress Note Date Seen: Sep 15, 2024 Resident Creating Document: [address] RESIDENT Has the PT tested + for MRSA If YES, has PT been informed?: No Medical Necessity Reason Pt with a Central, PICC or Fol: No (mid line) Medical Necessity Reason Patient is seen and examined today at the bedside with her and daughter present. Earlier in the day, patient was complaining of generalized pain. I ordere morphine1 mg q3hrs. At the time if my reassessment, patient is fine, very conversational and not in any form of distress at all. Yesterday (09/15/2024) patient's daughter sign a modified code form and also they have agreed for hospice with [facility]. Right now case planner/ manager social have sent information to [facility]. They have a meeting plan for tomorrow. Subjective Review of Systems Constitutional: Denies fever no chills no feeling of malaise HEENT: Denies headache, ear pain, ear discharges, conjunctivitis, nasal discharge throat pain Cardiovascular: Denies chest pain, palpitation, orthopnea, PND, or pedal edema Respiratory: Denies shortness of breath, cough cough, sputum production, hemoptysis, GI: Denies abdominal pain, nausea, vomiting, diarrhea, hematemesis, hematochezia, : Denies frequency, urgency, hematuria, Endocrine: Denies unintentional weight gain or weight loss, feeling of hot flashes, Lester: Denies easy bruising, bleeding disorders, epistaxis Musculoskeletal: Denies joint pains, muscle aches Psych: No evidence of depression, chandu, suicidal ideation Objective vital signs Vital Sign Date Time Temp Pulse Resp B/P (MAP) Pulse Ox O2 Delivery O2 Flow Rate FiO2 09/15/24 17:30 140/53 09/15/24 16:15 87 17 91 09/15/24 16:00 97.9 97.9 09/15/24 15:56 Nasal Cannula* 2 28 Total Intake and Output 09/14/24 09/14/24 09/15/24 15:00 23:00 07:00 Intake Total 61.875 ml 468 ml 393.750 ml Output Total 1400 ml 100 ml Balance 61.875 ml -932 ml 293.750 ml medications Current Medications Medications Dose Ordered Sig/Miranda Route Start Time Stop Time Status Last Admin Dose Admin Nitroglycerin 0.4 mg Q5MINP PRN SL 09/11/24 00:30 Pantoprazole Sodium 40 mg DAILY IV 09/11/24 10:00 09/15/24 08:23 40 MG Aspirin 81 mg DAILY NG 09/11/24 01:30 09/15/24 08:23 81 MG Atorvastatin Calcium 40 mg HS NG 09/11/24 01:30 09/14/24 21:38 40 MG Levothyroxine Sodium 100 mcg DAILY IV 09/12/24 10:00 09/15/24 08:23 100 MCG Acetaminophen 650 mg Q6HP PRN PO 09/11/24 04:15 09/15/24 09:21 650 MG Lorazepam 1 mg ONCE PRN IV 09/11/24 22:00 Enteral Nutritional Formula 1,000 ml 30ML/HR GT 09/12/24 15:15 Fluconazole 100 ml @ 100 mls/hr DAILY@1800 IV 09/13/24 18:00 09/15/24 17:30 100 MLS/HR Ipratropium [place] 0.5 mg Q6HWA PRN NEB 09/13/24 03:00 09/14/24 11:58 0.5 MG Levalbuterol HCl 0.625 mg Q6HWA PRN NEB 09/13/24 03:15 09/14/24 11:58 0.625 MG Piperacillin Sod/ Tazobactam Sod 100 ml @ 25 mls/hr Q8HR IV 09/14/24 06:30 09/15/24 14:22 25 MLS/HR Furosemide 40 mg BIDD IV 09/14/24 06:00 09/15/24 17:30 40 MG Hydrocortisone Sodium Succinate 50 mg Q6HR IV 09/14/24 12:00 09/15/24 17:30 50 MG Enoxaparin Sodium 40 mg DAILY SC 09/14/24 10:00 09/15/24 08:24 40 MG Iron Sucrose 110 ml @ 110 mls/hr DAILY@1200 IV 09/14/24 12:00 09/18/24 12:59 09/15/24 11:24 110 MLS/HR Norepinephrine Bitartrate 250 ml @ 1.875 mls/ hr Q24H IV 09/14/24 11:00 09/15/24 00:49 1.875 MLS/HR Ketorolac Tromethamine 15 mg Q6HPRN PRN IV 09/15/24 00:00 09/20/24 00:00 Hold 09/15/24 08:23 15 MG Trazodone HCl 50 mg HS PO 09/15/24 23:45 09/14/24 23:56 50 MG Morphine Sulfate 1 mg Q3HP PRN IV 09/15/24 11:00 09/15/24 14:31 1 MG Examination General Appearance: Alert, Oriented X3, Cooperative, No acute distress, conversational HEENT: Atraumatic, PERRLA, EOMI, Mucous membrane moist/pink Respiratory: Clear to auscultation, Normal air movement Cardiovascular: Regular rate, Normal S1, Normal S2, No murmurs, no chest wall tenderness Abdominal: NO distention, no tenderness, bowel sounds present, no scars noted Extremities: No clubbing, No cyanosis, No edema, Normal pulses, No tenderness/swelling Skin: Has midline on the right arm Neuro: Normal gait, Normal speech, Strength at 5/5 X4 ext, Normal tone, Sensation intact, Cranial nerves 3-12 NL, Reflexes 2+ Psych/Mental Status: Mental status NL, Mood NL laboratory and microbiology Laboratory Tests 09/15/24 03:22 Test 09/15/24 03:22 Range/Units Serum Glucose 143 H 74-106 mg/dL Microbiology Date/Time Source Procedure Growth Status 09/14/24 01:41 Blood Blood Culture - Preliminary NO GROWTH AFTER 24 HOURS OF INCUBATION. Resulted 09/11/24 00:41 Nose MRSA Screen - Final Complete 09/11/24 00:41 Voided Urine Urine Culture - Final Yeast, not Viridiana albicans Complete 09/11/24 00:31 Sputum Gram Stain - Final Complete 09/11/24 00:31 Respiratory Culture - Final Staphylococcus aureus Complete Problem List/Assessment/Plan Problem List/Assessment/Plan Assessment and plan NEUROLOGY: Right sided hemiparesis likely repeated stroke leading to right hemiparesis with speech difficulty. ? Recurrent strokes despite on anticoagulation History of massive CVA with left sided hemiplegic Insomnia on as needed trazodone CARDIOVASCULAR: Paroxysmal atrial fibrillation with secondary hypercoagulable state Status post dual-chamber pacemaker Abott MRI friendly a-sensed v-paced Hypertensive heart disease, LVH: LVEF 65%. Mild LVH mild LV diastolic dysfunction Type II demand mediated NSTEMI, telemetry with conservative management Carotid stenosis ruled out: Bilateral carotid duplex from 06/30/2024 revealed no hemodynamically significant stenosis noted in the bilateral carotid system. Wide QRS, low voltage RBBB Lower risk of significant coronary artery disease: Nuclear stress test from 05/24/2023 revealed ECG findings negative for ischemia and nuclear findings negative for ischemia CT Chest 09/14: Mild cardiomegaly with coronary artery disease. [id number] atherosclerotic vascular disease. on Aspirin, eliquis Obtained Echo result pending RESPIRATORY: Aspiration pneumonia likely due to bulbar function B/l pneumonia gram +ve / gram -ve / atypicals Acute hypoxic respiratory failure on 6 L oxygen Pleural effusion ARDS due to possible aspiration pneumonitis - CT chest 09/14: Consolidations with air bronchograms in the bilateral lower lobes with evidence of mucus plugging, suspicious for aspiration. Patchy ground glass opacities in the upper lobes bilaterally, likely infectious or inflammatory in nature. X-ray( 09/14/2024) : Interval worsening of right upper lobe pneumonia. Stop IV fluid Continue vancomycin and Zosyn 4L oxygen NC Sputum culture: No growth GASTROINTESTINAL Failed swallow evaluation GERD with gastritis Protonix TPN Plan GI consult for PEG Lactulose for constipation METABOLIC Dyslipidemia Severe hypokalemia resolved obesity grade 1 replenish electrolytes GENITOURINARY Acute complicated cystitis, Yeast positive, No albicans Chronic hypothyroidism CAROLYN due to VMN ( baseline 0.87) fluconazole HEMATOLOGY Chronic macrocytic + iron deficient mixed anemia Monitor H& H closely and transfuse if hgb< 7 ENDOCRINE Hypothyroidism acute on chronic likely due to medication indiscretion Give levothyroxine 100mcg INFECTIOUS DISEASE Septic shock Likely sepsis in the setting of aspiration pneumonia MRSA screen negative Continue vancomycin and zosyn Levophed -resumed 09/13/2024 PICC line for IV antibiotics; unable to obtain 09/14/2024 SKIN Decubitus ulcer high risk Completely bed bound at home. Others History of Breast cancer IV access Central line: right sided IJV: double lumen 09/10/2024; discontinued 09/12/2024 Midline: right upper arm 09/12/2024 Drips: Levophed RESUME 09/13/2024 due to hypotension Delgado's catheter in place 09/10/2024 DVT prophylaxis: already on Lovenox GI prophylaxis: Protonix Diet: Jevity Disposition: ICU status Goal of care: [facility]; Code is modified code; Critical care time 45 minutes, Advance care planning patient, daughter and Plan discussed with Dr. Prieto Plan discussed with: Patient, Spouse, Daughter My Orders My Orders Orders - [address] Procedure Category Date Status Time Ketorolac Injection PHA 09/15/24 In Process (Toradol Injection) 00:00 * Glaze Sprayer CONS 09/14/24 Transmitted Consult Morphine Sulfate PHA 09/15/24 In Process Injection 11:00 Dietary Evaluation Review Comments: Cardiac Diet, iron supplementation. Follow up with nephrology consult Expected Outcomes/Goals: Gradual wt loss, improved nutrition related lab values. Date of Service: Sep 15, 2024 Billing Provider: NICK PRIETO MD Common Visit Codes: NOT BILLABLE [address] Sep 15, 2024 17:46 NICK PRIETO MD Sep 16, 2024 14:42
[2024-09-15] MEDS ORDERED: AMIODARONE 360mg/200mL PREMIX 200 ML IV SCH (18:30)
--- NOTE | 2024-09-15 19:32 | DVHPN2 ---
Progress Note - Dictate Date Seen: Sep 15, 2024 Has the PT tested + for MRSA If YES, has PT been informed?: No Medical Necessity Reason Pt with a Central, PICC or Fol: No (mid line) Subjective Pt seen and examined. I was asked to evaluated patient for possible PEG tube placement for nutrition support. Pt was admitted recently for SOB/PNA and has been slowly improving. She has underlying chronic afib, CVA. She was seen by swallow therapist and passed her swallow evaluation, However per family, pt has been suffering from progressive weakness and debilitation and not able to get adequate nutrition. Family has opted for hosp care but wished to have PEG tube placement for nutrition support. vital signs Vital Sign Date Time Temp Pulse Resp B/P (MAP) Pulse Ox O2 Delivery O2 Flow Rate FiO2 09/15/24 18:54 85 18 121/56 09/15/24 18:30 96 09/15/24 18:14 Nasal Cannula 2.0 09/15/24 18:14 28 09/15/24 16:00 97.9 97.9 Total Intake and Output 09/14/24 09/14/24 09/15/24 15:00 23:00 07:00 Intake Total 61.875 ml 468 ml 393.750 ml Output Total 1400 ml 100 ml Balance 61.875 ml -932 ml 293.750 ml medications Current Medications Medications Dose Ordered Sig/Miranda Route Start Time Stop Time Status Last Admin Dose Admin Nitroglycerin 0.4 mg Q5MINP PRN SL 09/11/24 00:30 Pantoprazole Sodium 40 mg DAILY IV 09/11/24 10:00 09/15/24 08:23 40 MG Aspirin 81 mg DAILY NG 09/11/24 01:30 09/15/24 08:23 81 MG Atorvastatin Calcium 40 mg HS NG 09/11/24 01:30 09/14/24 21:38 40 MG Levothyroxine Sodium 100 mcg DAILY IV 09/12/24 10:00 09/15/24 08:23 100 MCG Acetaminophen 650 mg Q6HP PRN PO 09/11/24 04:15 09/15/24 09:21 650 MG Lorazepam 1 mg ONCE PRN IV 09/11/24 22:00 Enteral Nutritional Formula 1,000 ml 30ML/HR GT 09/12/24 15:15 Fluconazole 100 ml @ 100 mls/hr DAILY@1800 IV 09/13/24 18:00 09/15/24 17:30 100 MLS/HR Ipratropium [place] 0.5 mg Q6HWA PRN NEB 09/13/24 03:00 09/14/24 11:58 0.5 MG Levalbuterol HCl 0.625 mg Q6HWA PRN NEB 09/13/24 03:15 09/14/24 11:58 0.625 MG Piperacillin Sod/ Tazobactam Sod 100 ml @ 25 mls/hr Q8HR IV 09/14/24 06:30 09/15/24 14:22 25 MLS/HR Furosemide 40 mg BIDD IV 09/14/24 06:00 09/15/24 17:30 40 MG Hydrocortisone Sodium Succinate 50 mg Q6HR IV 09/14/24 12:00 09/15/24 17:30 50 MG Enoxaparin Sodium 40 mg DAILY SC 09/14/24 10:00 09/15/24 08:24 40 MG Iron Sucrose 110 ml @ 110 mls/hr DAILY@1200 IV 09/14/24 12:00 09/18/24 12:59 09/15/24 11:24 110 MLS/HR Norepinephrine Bitartrate 250 ml @ 1.875 mls/ hr Q24H IV 09/14/24 11:00 09/15/24 00:49 1.875 MLS/HR Ketorolac Tromethamine 15 mg Q6HPRN PRN IV 09/15/24 00:00 09/20/24 00:00 Hold 09/15/24 08:23 15 MG Trazodone HCl 50 mg HS PO 09/15/24 23:45 09/14/24 23:56 50 MG Morphine Sulfate 1 mg Q3HP PRN IV 09/15/24 11:00 09/15/24 18:24 1 MG objective Alert NGT feeding in place. lung has bilat rhonchi. abd s/nd/nt laboratory and microbiology Laboratory Tests 09/15/24 03:22 Test 09/15/24 03:22 Range/Units Serum Glucose 143 H 74-106 mg/dL Assessment/Plan 1) Malnourishment and feeding difficulty. Pt's family is requesting a PEG tube placement for nutrition support prior to discharge to hospice care, which is not an unreasonable request. Barriers to PEG tube placement include current anticoagulation and antiplatelet, along with resp distress. Family uncertainty wih code status during procedure. Pt is currently DNI/DNR. I discussed with patient and family about the risks, benefits, alternatives to PEG tube placement. They understanding and still wish to proceed. Rec: Hold ASA for now (3-5 days before procedure) Hold tube feeds 12 hrs before procedure. Hold Lovenox day before procedure. Cont treatment for PNA. We will re-assess for optimal time to do PEG tube Dietary Evaluation Review Comments: Cardiac Diet, iron supplementation. Follow up with nephrology consult Expected Outcomes/Goals: Gradual wt loss, improved nutrition related lab values. Plan discussed with: Patient, Daughter CAICEDO,PINKY Jimenez MD Sep 15, 2024 19:32
[2024-09-15] MEDS ORDERED: traZODone HCL 50 MG TAB PO SCH (22:00)
[2024-09-16] VITALS (78 sets, daily range): BP systolic 93–160; BP diastolic 30–78; PULSE 70–142; RESP 10–29; TEMP 97.8–98.6; O2SAT 51–100
[2024-09-16 04:37] LABS: Basophils # (auto) 0 10 ^3/uL (0-0.2); Eosinophils # (auto) 0 10 ^3/uL (0-0.8); Lymphocytes # (auto) 0.9 10 ^3/uL (0.4-5.4); Lymphocytes % (auto) 9.3 % (10.0-50.0); Mean Corpuscular Hemoglobin 32.5 pg (28.0-32.0); Mean Corpuscular Hgb Conc. 33.1 g/dL (32.0-36.0); Monocytes # (auto) 0.5 10 ^3/uL (0-1.3); Monocytes % (auto) 5.1 % (0.0-12.0); Neutrophils # (auto) 8.3 10 ^3/uL (1.6-8.6); Neutrophils % (auto) 85.6 % (37.0-80.0); Nucleated Red Blood Cells % 0.1 %; Platelet Count (auto) 204 10^3/uL (140-450); Red Blood Cells 2.45 10^6/uL (4.0-5.20); Red Cell Distribution Width 15.8 % (11.8-14.3); White Blood Cell 9.7 10^3/uL (4.4-10.8)
[2024-09-16 04:42] LABS: Anion Gap 11 (5-15); Carbon Dioxide 25 mmol/L (20-31); Potassium 3.6 mmol/L (3.5-5.1)
[2024-09-16 04:43] LABS: Chloride 110 mmol/L (98-107); Sodium 146 mmol/L (136-145)
[2024-09-16 04:48] LABS: BUN/Creatinine Ratio 32.6 (10.0-20.0)
[2024-09-16 04:56] LABS: Blood Urea Nitrogen 43 mg/dL (9-23); Glucose 132 mg/dL (74-106)
--- NOTE | 2024-09-16 05:34 | DVH ---
CHEST RADIOGRAPH Indication: PNEUMONIA Technique: Single frontal view of the chest was obtained Comparison: XY CHEST PORTABLE on DOS: 09/15/24, XY CHEST XRAY 1 VIEW on DOS: 09/14/24, XY CHEST XRAY 1 VIEW on DOS: 09/13/24 IMPRESSION: Heart appears stable in size with dual lead left cardiac device. Enteric tube tip in the region of t he stomach. Patchy airspace opacity in the left lung base may represent atelectasis or consolidation. Possible small left pleural effusion. No pneumothorax. No significant interval change.
[2024-09-16] MEDS: ACETAMINOPHEN 650 mg PER 20.3 mL UD GT PRN (10:47)
[2024-09-16] MEDS ORDERED: Jevity 1.2 Cal/Fiber 1 Liter GT SCH (11:00)
--- NOTE | 2024-09-16 11:04 | ECG ---
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
--- NOTE | 2024-09-16 11:37 | DVHPN2 ---
Assessment/Plan Assessment/Plan ICU note covering for dr Lee pending PEG, for hospice placement physical exam baseline mentation coarse breath sound s1 s2 rrr soft abdomen nontender trace le edema labs imaging ekg reviewed assessment and plan hx of CVA, R residual and aphasia, recurrent pafib HFpEF chronic diastilic HF aspiration pneumonia gp gn PLEF ARDS GERD malnutrition 2/2 decreased intake obesity acute cystitis CAROLYN possible VMN macrocytic anemia hypothyroidism septic shock req pressors decubital ulcer bed bound hx of breast cancer plan for peg increase free water hold lasix hold ac asa prior to procedure lines ngt atkins midline gi ppx protonix dvt ppx held diet TF condition critical prognosis poor modified code Plan discussed with: Patient, Daughter Date of Service: Sep 16, 2024 Billing Provider: JAVAN CASTILLO MD Common Visit Codes: [id number] INP/OBS CARE(HIGH) JAVAN CASTILLO MD Sep 16, 2024 11:36
--- NOTE | 2024-09-16 14:05 | DVHPN2 ---
Progress Note - Dictate Date Seen: Sep 16, 2024 Has the PT tested + for MRSA If YES, has PT been informed?: No Medical Necessity Reason Pt with a Central, PICC or Fol: No (mid line) vital signs Vital Sign Date Time Temp Pulse Resp B/P (MAP) Pulse Ox O2 Delivery O2 Flow Rate FiO2 09/16/24 13:34 76 18 134/50 09/16/24 13:00 94 09/16/24 12:09 Nasal Cannula* 1 24 09/16/24 12:00 98.1 98.1 Total Intake and Output 09/15/24 09/15/24 09/16/24 15:00 23:00 07:00 Intake Total 210 ml 455 ml 326 ml Output Total 150 ml 150 ml Balance 210 ml 305 ml 176 ml medications Current Medications Medications Dose Ordered Sig/Miranda Route Start Time Stop Time Status Last Admin Dose Admin Nitroglycerin 0.4 mg Q5MINP PRN SL 09/11/24 00:30 Pantoprazole Sodium 40 mg DAILY IV 09/11/24 10:00 09/16/24 09:46 40 MG Aspirin 81 mg DAILY NG 09/11/24 01:30 09/15/24 08:23 81 MG Atorvastatin Calcium 40 mg HS NG 09/11/24 01:30 09/15/24 21:32 40 MG Levothyroxine Sodium 100 mcg DAILY IV 09/12/24 10:00 09/16/24 09:45 100 MCG Lorazepam 1 mg ONCE PRN IV 09/11/24 22:00 Enteral Nutritional Formula 1,000 ml 30ML/HR GT 09/12/24 15:15 Fluconazole 100 ml @ 100 mls/hr DAILY@1800 IV 09/13/24 18:00 09/15/24 17:30 100 MLS/HR Ipratropium [place] 0.5 mg Q6HWA PRN NEB 09/13/24 03:00 09/16/24 12:09 0.5 MG Levalbuterol HCl 0.625 mg Q6HWA PRN NEB 09/13/24 03:15 09/16/24 12:08 0.625 MG Piperacillin Sod/ Tazobactam Sod 100 ml @ 25 mls/hr Q8HR IV 09/14/24 06:30 09/16/24 05:09 25 MLS/HR Hydrocortisone Sodium Succinate 50 mg Q6HR IV 09/14/24 12:00 09/16/24 12:12 50 MG Enoxaparin Sodium 40 mg DAILY SC 09/14/24 10:00 09/15/24 08:24 40 MG Iron Sucrose 110 ml @ 110 mls/hr DAILY@1200 IV 09/14/24 12:00 09/18/24 12:59 09/16/24 12:13 110 MLS/HR Trazodone HCl 50 mg HS PO 09/15/24 23:45 09/14/24 23:56 50 MG Morphine Sulfate 1 mg Q3HP PRN IV 09/15/24 11:00 09/16/24 13:34 1 MG Acetaminophen 650 mg Q6HP PRN GT 09/16/24 10:00 09/16/24 10:47 650 MG Levalbuterol HCl 0.625 mg Q6HR NEB 09/16/24 12:00 Ipratropium [place] 0.5 mg Q6HR NEB 09/16/24 12:00 laboratory and microbiology Laboratory Tests 09/16/24 03:41 Test 09/16/24 03:41 Range/Units Serum Glucose 132 H 74-106 mg/dL Assessment/Plan Impression Acute hypoxemic respiratory failure Aspiration pneumonia Pleural effusions Atelectasis Patient seen and examined in ICU Events Low oxygen requirements On 1 liter nasal cannula Patient appears dry Soft blood pressure, intermittently requiring Levophed Labs and imaging reviewed Management Supplemental oxygen Titrate to maintain sats 90% or above Incentive spirometry Continue antibiotics F/u cultures Bronchodilators Monitor renal function Monitor electrolytes Supplement as needed Pressors as needed for hemodynamic support To maintain a mean arterial pressure of 65 mmHg Code status DNR DVT prophylaxis Critical care time 35 minutes Dietary Evaluation Review Comments: Cardiac Diet, iron supplementation. Follow up with nephrology consult Expected Outcomes/Goals: Gradual wt loss, improved nutrition related lab values. Plan discussed with: Patient NICK PRIETO MD Sep 16, 2024 14:05
--- NOTE | 2024-09-16 15:09 | DVHSR ---
APPROVED REPORT EXAM: Two-dimensional and M-mode echocardiogram with Doppler and color Doppler. Blood Pressure: 96/49 mmHg INDICATION CVA/TIA: RISK FACTORS Height: 5'1", Weight: 155 Other Information Quality : Technically LimitedRhythm : Technically limited study due to body habitus , pt position and yelling Conclusion Technically difficult study. Difficult acoustic windows. Patient is uncooperative. From the limited views obtained there appears to be an underlying sinus tachycardia. There is [id number] mitral annular calcification however good excursion of the mitral leaflets. The aortic tricuspid and pulmonic or within normal limits. Left ventricular function is preserved at 60% with normal RV function. Dopplers unremarkable. No pericardial effusion masses or vegetations.
[2024-09-16] MEDS: ENOXAPARIN SOD 40 MG/0.4 ML SYRINGE SC ONE (16:42)
[2024-09-16] MEDS: SODIUM CHLORIDE 0.9% 500 ML IV ONE (18:30)
[2024-09-16] MEDS: IPRATROPIUM BROM 0.5 MG/2.5ML INH SOL NEB SCH (19:10)
[2024-09-16] MEDS: LEVALBUTEROL HCL 1.25 MG/3 ML NEB NEB SCH (19:10)
--- NOTE | 2024-09-16 20:46 | DVHPN2 ---
Progress Note - Dictate Date Seen: Sep 16, 2024 Has the PT tested + for MRSA If YES, has PT been informed?: No Medical Necessity Reason Pt with a Central, PICC or Fol: No (mid line) Subjective Ms. Posada is a 73 years old right-handed female with a history of hypertension, atrial fibrillation, breast cancer, kidney stone, the patient was came to the hospital on 09/11/2024 with a chief company of shortness breath, general weakness, and the patient was found to have pneumonia, respiratory failure, hypotension, and the patient was admitted to ICU, the patient was also has other problems I have seen and examined the patient, I have discussed with her nurse, his family is visiting her in the hospital. she is awake, oriented to person, place, she knows year and the month, her voice is much stronger today She moves the arms and the legs Blood culture, 09/11/2024: WBC/HB/PLT/MCV, 09/11/2024: 8.5/9.9/225/99.5 PTT/INR/ABG, 09/11/2024: 13.5/1.3/45.9 HCO3, 09/11/2024:19 BUN/CR, 09/11/2024: 30/1.16 HGB A1c, 07/12/2019 5:4.5 Liver function tests, 09/11/2024: Unremarkable TG/HDL/LDL/HDL, 07/14/2024: 89/110/59/26 Vitamin B12, 07/2019 5:1114 Folic acid, 07/2024: 0.9 TSH, 09/11/2024: 15.09 Echocardiogram, 09/14/2024: Technically difficult study. Difficult acoustic windows. Patient is uncooperative. From the limited views obtained there appears to be an underlying sinus tachycardia. There is ueem-[id number]-[id number] mitral annular calcification however good excursion of the mitral leaflets. The aortic tricuspid and pulmonic or within normal limits. Left ventricular function is preserved at 60% with normal RV function. Dopplers unremarkable. No pericardial effusion masses or vegetations. Carotid Doppler, 06/30/24: No hemodynamically significant stenosis noted in the right carotid system. No hemodynamically significant stenosis noted in the left carotid system Carotid Doppler, 09/12/2024: No hemodynamically significant stenosis noted in the left carotid system. Chest x-ray, 09/11/2024: 1. Appropriate position of the support lines and tubes. 2. Bilateral pleural effusions. MRI head, 09/13/2024: 1. Limited stroke protocol. Limited by motion.2. No evidence of acute infarction, intracranial hemorrhage, mass effect or hydrocephalus. 3. Old right MCA infarct. Consider follow-up exam when patient is able to tolerate vital signs Vital Sign Date Time Temp Pulse Resp B/P (MAP) Pulse Ox O2 Delivery O2 Flow Rate FiO2 09/16/24 19:23 139 18 97 09/16/24 19:15 Nasal Cannula 1.0 09/16/24 19:15 24 09/16/24 18:30 116/68 (84) 09/16/24 16:00 97.8 97.8 Total Intake and Output 09/15/24 09/15/24 09/16/24 15:00 23:00 07:00 Intake Total 210 ml 455 ml 326 ml Output Total 150 ml 150 ml Balance 210 ml 305 ml 176 ml medications Current Medications Medications Dose Ordered Sig/Miranda Route Start Time Stop Time Status Last Admin Dose Admin Nitroglycerin 0.4 mg Q5MINP PRN SL 09/11/24 00:30 Pantoprazole Sodium 40 mg DAILY IV 09/11/24 10:00 09/16/24 09:46 40 MG Atorvastatin Calcium 40 mg HS NG 09/11/24 01:30 09/15/24 21:32 40 MG Levothyroxine Sodium 100 mcg DAILY IV 09/12/24 10:00 09/16/24 09:45 100 MCG Lorazepam 1 mg ONCE PRN IV 09/11/24 22:00 Fluconazole 100 ml @ 100 mls/hr DAILY@1800 IV 09/13/24 18:00 09/16/24 18:14 100 MLS/HR Ipratropium [place] 0.5 mg Q6HWA PRN NEB 09/13/24 03:00 09/16/24 12:09 0.5 MG Levalbuterol HCl 0.625 mg Q6HWA PRN NEB 09/13/24 03:15 09/16/24 12:08 0.625 MG Piperacillin Sod/ Tazobactam Sod 100 ml @ 25 mls/hr Q8HR IV 09/14/24 06:30 09/16/24 14:52 25 MLS/HR Hydrocortisone Sodium Succinate 50 mg Q6HR IV 09/14/24 12:00 09/16/24 18:14 50 MG Iron Sucrose 110 ml @ 110 mls/hr DAILY@1200 IV 09/14/24 12:00 09/18/24 12:59 09/16/24 12:13 110 MLS/HR Trazodone HCl 50 mg HS PO 09/15/24 23:45 09/14/24 23:56 50 MG Morphine Sulfate 1 mg Q3HP PRN IV 09/15/24 11:00 09/16/24 16:38 1 MG Acetaminophen 650 mg Q6HP PRN GT 09/16/24 10:00 09/16/24 10:47 650 MG Levalbuterol HCl 0.625 mg Q6HR NEB 09/16/24 12:00 09/16/24 19:15 0.625 MG Ipratropium [place] 0.5 mg Q6HR NEB 09/16/24 12:00 09/16/24 19:15 0.5 MG Enteral Nutritional Formula 1,000 ml 40ML/HR GT 09/16/24 11:00 objective General: the patient is well developed and nourished. No acute distress. MENTAL STATUS: Subjective SPEECH, LANGUAGE, HIGHER CORTICAL FUNCTION: Subjective CRANIAL NERVES: Pupils are equal, round and reactive. EOMs full and conjugate. Facial sensation intact in all three divisions bilaterally. Mandibular strength intact. Facial muscles symmetrical and strength intact. SENSATION: Sensation to touch and pinprick is finel. MOTOR: Normal tone in the upper and lower extremity. Normal muscle bulk. No fasciculations. No abnormal movements or posturing. Muscle power is: arms, right 2-3/5, left: 1/5. Legs: 1-2/5 REFLEXES: Deep tendon reflexes normal and symmetrical. No pathological reflexes. CEREBELLAR/COORDINATION: Deferred GAIT/STATION: deferred. laboratory and microbiology Laboratory Tests 09/16/24 03:41 Test 09/16/24 03:41 Range/Units Serum Glucose 132 H 74-106 mg/dL Problem List Acute respiratory failure secondary to pneumonia Pneumonia, ? Aspiration Right sided weakness in 07/2024, rule out acute stroke Chronic stroke with residual left-sided hemiparesis Atrial fibrillation Coagulopathy Assessment/Plan Monitoring Supportive treatment Follow-up lab ICU care Stabilize vitals Respiratory support Oxygen Eliquis 5 mg b.i.d. Lipitor 40 mg daily GI prophylaxis More recommendation per clinical course This medical document was created using an electronic medical record system with [employer] dictation system. Although this document has been carefully reviewed, there may still be some phonetic and typographical errors. These areas are purely typographical due to imperfections of the software programs, and do not reflect any compromise in the patient's medical care. Prognosis poor Dietary Evaluation Review Comments: Cardiac Diet, iron supplementation. Follow up with nephrology consult Expected Outcomes/Goals: Gradual wt loss, improved nutrition related lab values. Plan discussed with: Patient, Son, Other MARY RAMIREZ MD Sep 16, 2024 20:46
[2024-09-16] MEDS: METOPROLOL TARTRATE 1MG/1ML-5ML VIAL IV ONE (20:50)
[2024-09-17] VITALS (109 sets, daily range): BP systolic 84–163; BP diastolic 33–91; PULSE 70–145; RESP 15–33; TEMP 97.8–98.9; O2SAT 72–100
[2024-09-17] MEDS: PHENYLEPHRINE IV 250 ML IV SCH (01:06)
[2024-09-17 02:23] LABS: Base Excess -2.7 mmol/L (-2.0-3.0)
[2024-09-17 04:16] LABS: Basophils # (auto) 0 10 ^3/uL (0-0.2); Eosinophils # (auto) 0 10 ^3/uL (0-0.8); Hematocrit 27.6 % (36.0-46.0); Lymphocytes # (auto) 0.6 10 ^3/uL (0.4-5.4); Lymphocytes % (auto) 3.6 % (10.0-50.0); Mean Corpuscular Hemoglobin 32.6 pg (28.0-32.0); Mean Corpuscular Hgb Conc. 32.8 g/dL (32.0-36.0); Mean Corpuscular Volume 99.4 fL (80.0-100.0); Monocytes # (auto) 1.2 10 ^3/uL (0-1.3); Monocytes % (auto) 7.5 % (0.0-12.0); Neutrophils # (auto) 14.1 10 ^3/uL (1.6-8.6); Neutrophils % (auto) 88.9 % (37.0-80.0); Platelet Count (auto) 223 10^3/uL (140-450); Red Blood Cells 2.77 10^6/uL (4.0-5.20); Red Cell Distribution Width 16.3 % (11.8-14.3); White Blood Cell 15.8 10^3/uL (4.4-10.8)
[2024-09-17 04:24] LABS: Anion Gap 14 (5-15); Carbon Dioxide 22 mmol/L (20-31)
[2024-09-17 04:28] LABS: Calcium 8.3 mg/dL (8.7-10.4); Chloride 110 mmol/L (98-107); Potassium 2.9 mmol/L (3.5-5.1); Sodium 146 mmol/L (136-145)
[2024-09-17 04:31] LABS: Blood Urea Nitrogen 48 mg/dL (9-23); Glucose 142 mg/dL (74-106); Magnesium 2.3 mg/dL (1.6-2.6)
[2024-09-17 04:33] LABS: Phosphorus 3.4 mg/dL (2.4-5.1)
[2024-09-17] MEDS: LORazepam 2MG/ML-1ML VIAL IV PRN (04:37)
[2024-09-17] MEDS ORDERED: POTASSIUM CHL 20MEQ/50ML 50 ML IV SCH (05:00)
[2024-09-17] MEDS: POTASSIUM CHL 20MEQ/100ML 100 ML IV SCH (06:00)
--- NOTE | 2024-09-17 06:28 | DVH ---
CHEST RADIOGRAPH Indication: PNEUMONIA Technique: Single frontal view of the chest was obtained COMPARISON: XY CHEST PORTABLE on DOS: 09/16/24, XY CHEST PORTABLE on DOS: 09/15/24, XY CHEST XRAY 1 VIE W on DOS: 09/14/24, XY CHEST XRAY 1 VIEW on DOS: 09/13/24, XY CHEST PORTABLE on DOS: 09/13/24 FINDINGS: Lines and Tubes: Left chest wall pacemaker. Enteric catheter in satisfactory position. Lungs: Low lung volumes. Pleura: No effusion. No pneumothorax. Cardiomediastinal contours: Cardiomegaly Bones: Unremarkable IMPRESSION: No significant interval change.
--- NOTE | 2024-09-17 09:47 | ECG ---
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
--- NOTE | 2024-09-17 11:40 | DVHPN2 ---
Assessment/Plan Assessment/Plan ICU note covering for dr Lee hypoxic and hypotensive overnight, bagged, placed on bipap, phenyl started temporarily. patient likely aspirated. discussed with family regarding she likely will keep aspirating due to neuro deficit. on assessment arrousable by pain and then maintain eyes open, anisokoria L>R, moving both L and R extremity to pain (R>L same with prior deficit). cannot rule out bleed, however currently still on bipap, will defer ct for now and go when bipap can be taken out. physical exam baseline mentation anisochoria coarse breath sound, more rhonchi on R s1 s2 rrr soft abdomen nontender trace le edema labs imaging ekg reviewed assessment and plan hx of CVA, R residual and aphasia, recurrent pafib HFpEF chronic diastilic HF aspiration pneumonia gp gn PLEF ARDS GERD malnutrition 2/2 decreased intake obesity acute cystitis CAROLYN possible VMN macrocytic anemia hypothyroidism septic shock req pressors decubital ulcer bed bound hx of breast cancer plan for peg increase free water low dose lasix hold ac asa prior to procedure c/w bipap, zosyn hold tf for now HOB elevation get CT once off bipap lines ngt atkins midline gi ppx protonix dvt ppx held diet TF condition critical prognosis poor chemical code critical care time 60 minutes Plan discussed with: Other My Orders Orders - JAVAN CASTILLO MD Procedure Category Date Status Time Levalbuterol Hcl PHA 09/16/24 In Process (Xopenex Medneb) 12:00 Ipratropium Medneb PHA 09/16/24 In Process (Atrovent Medneb) 12:00 Nutritional PHA 09/16/24 In Process Supplements (Jevity 11:00 Chest Portable XY 09/17/24 Resulted 04:00 Date of Service: Sep 17, 2024 Billing Provider: JAVAN CASTILLO MD Common Visit Codes: [id number] CARE 30-74 MIN JAVAN CASTILLO MD Sep 17, 2024 11:40
[2024-09-17 12:18] LABS: Base Excess -1.9 mmol/L (-2.0-3.0)
--- NOTE | 2024-09-17 16:48 | DVHPN2 ---
Progress Note - Dictate Date Seen: Sep 17, 2024 Has the PT tested + for MRSA If YES, has PT been informed?: No Medical Necessity Reason Pt with a Central, PICC or Fol: No (mid line) vital signs Vital Sign Date Time Temp Pulse Resp B/P (MAP) Pulse Ox O2 Delivery O2 Flow Rate FiO2 09/17/24 16:15 87 127/55 100 Facial BiPAP Mask 50 09/17/24 15:00 17 09/17/24 12:00 98.4 98.4 09/16/24 22:00 1 Total Intake and Output 09/16/24 09/16/24 09/17/24 15:00 23:00 07:00 Intake Total 210 ml 320 ml 994 ml Output Total 475 ml 150 ml Balance 210 ml -155 ml 844 ml medications Current Medications Medications Dose Ordered Sig/Miranda Route Start Time Stop Time Status Last Admin Dose Admin Nitroglycerin 0.4 mg Q5MINP PRN SL 09/11/24 00:30 Pantoprazole Sodium 40 mg DAILY IV 09/11/24 10:00 09/17/24 09:50 40 MG Atorvastatin Calcium 40 mg HS NG 09/11/24 01:30 09/16/24 21:08 40 MG Levothyroxine Sodium 100 mcg DAILY IV 09/12/24 10:00 09/17/24 09:49 100 MCG Lorazepam 1 mg ONCE PRN IV 09/11/24 22:00 Fluconazole 100 ml @ 100 mls/hr DAILY@1800 IV 09/13/24 18:00 09/16/24 18:14 100 MLS/HR Ipratropium [place] 0.5 mg Q6HWA PRN NEB 09/13/24 03:00 09/16/24 12:09 0.5 MG Levalbuterol HCl 0.625 mg Q6HWA PRN NEB 09/13/24 03:15 09/16/24 12:08 0.625 MG Piperacillin Sod/ Tazobactam Sod 100 ml @ 25 mls/hr Q8HR IV 09/14/24 06:30 09/17/24 14:29 25 MLS/HR Hydrocortisone Sodium Succinate 50 mg Q6HR IV 09/14/24 12:00 09/17/24 12:08 50 MG Iron Sucrose 110 ml @ 110 mls/hr DAILY@1200 IV 09/14/24 12:00 09/18/24 12:59 09/17/24 12:07 110 MLS/HR Trazodone HCl 50 mg HS PO 09/15/24 23:45 09/14/24 23:56 50 MG Morphine Sulfate 1 mg Q3HP PRN IV 09/15/24 11:00 09/16/24 21:09 1 MG Acetaminophen 650 mg Q6HP PRN GT 09/16/24 10:00 09/16/24 10:47 650 MG Levalbuterol HCl 0.625 mg Q6HR NEB 09/16/24 12:00 09/17/24 12:38 0.625 MG Ipratropium [place] 0.5 mg Q6HR NEB 09/16/24 12:00 09/17/24 12:38 0.5 MG Enteral Nutritional Formula 1,000 ml 40ML/HR GT 09/16/24 11:00 Lorazepam 1 mg Q4HPRN PRN IV 09/17/24 00:00 09/17/24 04:37 1 MG Phenylephrine HCl 250 ml @ 30 mls/hr Q8H20M IV 09/17/24 00:45 09/17/24 01:06 30 MLS/HR laboratory and microbiology Laboratory Tests 09/17/24 03:53 Test 09/17/24 03:53 Range/Units Serum Glucose 142 H 74-106 mg/dL Assessment/Plan Impression Acute hypoxemic respiratory failure Aspiration pneumonia Pleural effusions Atelectasis Patient seen and examined in ICU Events Observed overnight, patient declining Was started on bipap for increased work of breathing Required Sj-Synephrine for hemodynamic support Chest x-ray demonstrates fluid overload, Lasix given IV once Labs and imaging reviewed Management Supplemental oxygen Titrate to maintain sats 90% or above Incentive spirometry Prn bipap Continue antibiotics F/u cultures Bronchodilators Monitor renal function Monitor electrolytes Supplement as needed Pressors as needed for hemodynamic support To maintain a mean arterial pressure of 65 mmHg Code status DNR DVT prophylaxis Critical care time 35 minutes Dietary Evaluation Review Comments: Cardiac Diet, iron supplementation. Follow up with nephrology consult Expected Outcomes/Goals: Gradual wt loss, improved nutrition related lab values. Plan discussed with: Other (Rn) NICK PRIETO MD Sep 17, 2024 16:48
[2024-09-17] MEDS ORDERED: METOPROLOL TARTRATE 25 MG TAB PO ONE (17:45)
[2024-09-17] MEDS: FUROSEMIDE 20 MG/2 ML VIAL IV ONE (18:09)
[2024-09-17] MEDS ORDERED: METOPROLOL TARTRATE 1MG/1ML-5ML VIAL IV ONE (18:15)
[2024-09-17] MEDS ORDERED: LABETALOL HCL 20 MG/4 ML VL IV PRN ×2 (18:30→18:45)
[2024-09-17] MEDS: AMIODARONE BOLUS KIT 100 ML IV ONE (18:45)
[2024-09-17] MEDS ORDERED: LABETALOL HCL 5 MG/ML 4ML SYRINGE IV PRN (18:45)
[2024-09-17] MEDS: AMIODARONE 360mg/200mL PREMIX 200 ML IV ONE (19:22)
[2024-09-17] MEDS: AMIODARONE 360mg/200mL PREMIX 200 ML IV SCH (23:38)
[2024-09-18] VITALS (105 sets, daily range): BP systolic 105–162; BP diastolic 39–90; PULSE 68–137; RESP 15–34; TEMP 97.8–98.1; O2SAT 52–98
[2024-09-18 04:46] LABS: Potassium 3.7 mmol/L (3.5-5.1)
[2024-09-18 04:47] LABS: Anion Gap 18 (5-15)
[2024-09-18 04:48] LABS: Calcium 8.9 mg/dL (8.7-10.4)
[2024-09-18 04:51] LABS: Carbon Dioxide 15 mmol/L (20-31); Chloride 120 mmol/L (98-107); Sodium 153 mmol/L (136-145)
[2024-09-18 04:52] LABS: BUN/Creatinine Ratio 34.7 (10.0-20.0)
[2024-09-18 04:54] LABS: Phosphorus 3.3 mg/dL (2.4-5.1)
[2024-09-18 04:57] LABS: Blood Urea Nitrogen 41 mg/dL (9-23); Glucose 127 mg/dL (74-106); Magnesium 2.7 mg/dL (1.6-2.6)
[2024-09-18 07:09] LABS: Base Excess -0.3 mmol/L (-2.0-3.0)
--- NOTE | 2024-09-18 07:28 | DVH ---
EXAM: XR Chest, 1 View CLINICAL INDICATION: Pain TECHNIQUE: Frontal view of the chest. COMPARISON: No relevant prior studies available. FINDINGS: LUNGS AND PLEURAL SPACES: See below. HEART: Cardiomegaly with pulmonary congestion and edema. Superimposed pneumonia cannot be excluded. MEDIASTINUM: Unremarkable. Normal mediastinal contour. BONES/JOINTS: Unremarkable. No acute fracture. TUBES, LINES AND DEVICES: Enteric tube tip in the stomach. Left-sided cardiac pacemaker. IMPRESSION: Cardiomegaly with pulmonary congestion and edema. Superimposed pneumonia cannot be excluded.
--- NOTE | 2024-09-18 07:33 | ECG ---
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
--- NOTE | 2024-09-18 07:33 | ECG ---
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
--- NOTE | 2024-09-18 09:52 | DVHPN2 ---
Progress Note - Dictate Date Seen: Sep 18, 2024 Has the PT tested + for MRSA If YES, has PT been informed?: No Medical Necessity Reason Pt with a Central, PICC or Fol: No (mid line) Subjective Ms. Posada is a 73 years old right-handed female with a history of hypertension, atrial fibrillation, breast cancer, kidney stone, the patient was came to the hospital on 09/11/2024 with a chief company of shortness breath, general weakness, and the patient was found to have pneumonia, respiratory failure, hypotension, and the patient was admitted to ICU, the patient was also has other problems I have seen and examined the patient, I have discussed with her nurse, her and son are in the room with her. She desaturated in the evening on 09/16/2024, and she has been on BiPAP. At that time, she is a sleeping, she was able to not for questions when she was awake Blood culture, 09/11/2024: WBC/HB/PLT/MCV, 09/11/2024: 8.5/9.9/225/99.5 PTT/INR/ABG, 09/11/2024: 13.5/1.3/45.9 HCO3, 09/11/2024:19 BUN/CR, 09/11/2024: 30/1.16 HGB A1c, 07/12/2019 5:4.5 Liver function tests, 09/11/2024: Unremarkable TG/HDL/LDL/HDL, 07/14/2024: 89/110/59/26 Vitamin B12, 07/2019 5:1114 Folic acid, 07/2024: 0.9 TSH, 09/11/2024: 15.09 Echocardiogram, 09/14/2024: Technically difficult study. Difficult acoustic windows. Patient is uncooperative. From the limited views obtained there appears to be an underlying sinus tachycardia. There is vkbo-cq-mfskcdgg mitral annular calcification however good excursion of the mitral leaflets. The aortic tricuspid and pulmonic or within normal limits. Left ventricular function is preserved at 60% with normal RV function. Dopplers unremarkable. No pericardial effusion masses or vegetations. Carotid Doppler, 06/30/24: No hemodynamically significant stenosis noted in the right carotid system. No hemodynamically significant stenosis noted in the left carotid system Carotid Doppler, 09/12/2024: No hemodynamically significant stenosis noted in the left carotid system. Chest x-ray, 09/11/2024: 1. Appropriate position of the support lines and tubes. 2. Bilateral pleural effusions. Chest X-ry, 09/18/2024: Cardiomegaly with pulmonary congestion and edema. Superimposed pneumonia cannot be excluded. MRI head, 09/13/2024: 1. Limited stroke protocol. Limited by motion.2. No evidence of acute infarction, intracranial hemorrhage, mass effect or hydrocephalus. 3. Old right MCA infarct. Consider follow-up exam when patient is able to tolerate vital signs Vital Sign Date Time Temp Pulse Resp B/P (MAP) Pulse Ox O2 Delivery O2 Flow Rate FiO2 09/18/24 08:28 78 120/40 96 Facial BiPAP Mask 50 09/18/24 07:00 21 09/17/24 23:45 98.1 98.1 09/16/24 22:00 1 Total Intake and Output 09/17/24 09/17/24 09/18/24 15:00 23:00 07:00 Intake Total 410 ml 336.99 ml 179.63 ml Output Total 475 ml 400 ml Balance 410 ml -138.01 ml -220.37 ml medications Current Medications Medications Dose Ordered Sig/Miranda Route Start Time Stop Time Status Last Admin Dose Admin Nitroglycerin 0.4 mg Q5MINP PRN SL 09/11/24 00:30 Pantoprazole Sodium 40 mg DAILY IV 09/11/24 10:00 09/17/24 09:50 40 MG Atorvastatin Calcium 40 mg HS NG 09/11/24 01:30 09/16/24 21:08 40 MG Levothyroxine Sodium 100 mcg DAILY IV 09/12/24 10:00 09/17/24 09:49 100 MCG Lorazepam 1 mg ONCE PRN IV 09/11/24 22:00 Fluconazole 100 ml @ 100 mls/hr DAILY@1800 IV 09/13/24 18:00 09/17/24 18:08 100 MLS/HR Ipratropium [place] 0.5 mg Q6HWA PRN NEB 09/13/24 03:00 09/16/24 12:09 0.5 MG Levalbuterol HCl 0.625 mg Q6HWA PRN NEB 09/13/24 03:15 09/16/24 12:08 0.625 MG Piperacillin Sod/ Tazobactam Sod 100 ml @ 25 mls/hr Q8HR IV 09/14/24 06:30 09/18/24 05:38 25 MLS/HR Hydrocortisone Sodium Succinate 50 mg Q6HR IV 09/14/24 12:00 09/18/24 05:38 50 MG Iron Sucrose 110 ml @ 110 mls/hr DAILY@1200 IV 09/14/24 12:00 09/18/24 12:59 09/17/24 12:07 110 MLS/HR Trazodone HCl 50 mg HS PO 09/15/24 23:45 09/14/24 23:56 50 MG Morphine Sulfate 1 mg Q3HP PRN IV 09/15/24 11:00 09/16/24 21:09 1 MG Acetaminophen 650 mg Q6HP PRN GT 09/16/24 10:00 09/16/24 10:47 650 MG Levalbuterol HCl 0.625 mg Q6HR NEB 09/16/24 12:00 09/18/24 06:07 0.625 MG Ipratropium [place] 0.5 mg Q6HR NEB 09/16/24 12:00 09/18/24 06:07 0.5 MG Enteral Nutritional Formula 1,000 ml 40ML/HR GT 09/16/24 11:00 Lorazepam 1 mg Q4HPRN PRN IV 09/17/24 00:00 09/18/24 06:12 1 MG Phenylephrine HCl 250 ml @ 30 mls/hr Q8H20M IV 09/17/24 00:45 09/17/24 01:06 30 MLS/HR objective General: the patient is well developed and nourished. No acute distress. MENTAL STATUS: Subjective SPEECH, LANGUAGE, HIGHER CORTICAL FUNCTION: Subjective CRANIAL NERVES: Pupils are equal, round and reactive. EOMs full and conjugate. Facial sensation intact in all three divisions bilaterally. Mandibular strength intact. Facial muscles symmetrical and strength intact. SENSATION: Sensation to touch and pinprick is finel. MOTOR: Normal tone in the upper and lower extremity. Normal muscle bulk. No fasciculations. No abnormal movements or posturing. No spontaneous extremity movement/asleep (Muscle power is: arms, right 2-3/5, left: 1/5. Legs: 1-2/5 earlier) REFLEXES: Deep tendon reflexes normal and symmetrical. No pathological reflexes. CEREBELLAR/COORDINATION: Deferred GAIT/STATION: deferred. laboratory and microbiology Laboratory Tests 09/18/24 01:30 Test 09/18/24 01:30 Range/Units Serum Glucose 127 H 74-106 mg/dL Problem List Acute respiratory failure secondary to pneumonia Pneumonia/respiratory failure ? Aspiration Right sided weakness in 07/2024, rule out acute stroke Chronic stroke with residual left-sided hemiparesis Atrial fibrillation Coagulopathy Assessment/Plan Monitoring Supportive treatment Follow-up lab ICU care Stabilize vitals Respiratory support/BiPAP Oxygen Eliquis 5 mg b.i.d. Lipitor 40 mg daily GI prophylaxis More recommendation per clinical course This medical document was created using an electronic medical record system with [employer] dictation system. Although this document has been carefully reviewed, there may still be some phonetic and typographical errors. These areas are purely typographical due to imperfections of the software programs, and do not reflect any compromise in the patient's medical care. Prognosis poor, guarded Dietary Evaluation Review Comments: Cardiac Diet, iron supplementation. Follow up with nephrology consult Expected Outcomes/Goals: Gradual wt loss, improved nutrition related lab values. Plan discussed with: Other MARY RAMIREZ MD Sep 18, 2024 09:52
[2024-09-18] MEDS ORDERED: METOPROLOL TARTRATE 25 MG TAB PO SCH (10:00)
[2024-09-18 11:18] LABS: Basophils # (auto) 0 10 ^3/uL (0-0.2); Eosinophils # (auto) 0 10 ^3/uL (0-0.8); Hemoglobin 8.2 g/dL (12.2-16.2); Monocytes # (auto) 0.5 10 ^3/uL (0-1.3); Nucleated Red Blood Cells % 0.1 %
[2024-09-18 11:21] LABS: Hematocrit 25.1 % (36.0-46.0); Lymphocytes # (auto) 0.7 10 ^3/uL (0.4-5.4); Lymphocytes % (auto) 5.1 % (10.0-50.0); Mean Corpuscular Hemoglobin 31.8 pg (28.0-32.0); Mean Corpuscular Hgb Conc. 32.7 g/dL (32.0-36.0); Mean Corpuscular Volume 97.2 fL (80.0-100.0); Monocytes % (auto) 3.4 % (0.0-12.0); Neutrophils # (auto) 12.9 10 ^3/uL (1.6-8.6); Neutrophils % (auto) 91.5 % (37.0-80.0); Platelet Count (auto) 236 10^3/uL (140-450); Red Blood Cells 2.58 10^6/uL (4.0-5.20); Red Cell Distribution Width 16.1 % (11.8-14.3); White Blood Cell 14.1 10^3/uL (4.4-10.8)
--- NOTE | 2024-09-18 14:41 | DVHPN2 ---
Progress Note - Dictate Date Seen: Sep 18, 2024 Has the PT tested + for MRSA If YES, has PT been informed?: No Medical Necessity Reason Pt with a Central, PICC or Fol: No (mid line) Subjective Pt seen and examined. Pt has resp dest on 09/16, 09/17 and now is on Bipap. CXR shows pulm vasc congestion. vital signs Vital Sign Date Time Temp Pulse Resp B/P (MAP) Pulse Ox O2 Delivery O2 Flow Rate FiO2 09/18/24 14:23 134 143/63 89 Facial BiPAP Mask 55 09/18/24 12:30 23 09/18/24 12:00 97.8 97.8 09/16/24 22:00 1 Total Intake and Output 09/17/24 09/17/24 09/18/24 15:00 23:00 07:00 Intake Total 410 ml 336.99 ml 204.63 ml Output Total 475 ml 400 ml Balance 410 ml -138.01 ml -195.37 ml medications Current Medications Medications Dose Ordered Sig/Miranda Route Start Time Stop Time Status Last Admin Dose Admin Nitroglycerin 0.4 mg Q5MINP PRN SL 09/11/24 00:30 Pantoprazole Sodium 40 mg DAILY IV 09/11/24 10:00 09/18/24 10:13 40 MG Atorvastatin Calcium 40 mg HS NG 09/11/24 01:30 09/16/24 21:08 40 MG Levothyroxine Sodium 100 mcg DAILY IV 09/12/24 10:00 09/18/24 10:13 100 MCG Lorazepam 1 mg ONCE PRN IV 09/11/24 22:00 Fluconazole 100 ml @ 100 mls/hr DAILY@1800 IV 09/13/24 18:00 09/17/24 18:08 100 MLS/HR Ipratropium [place] 0.5 mg Q6HWA PRN NEB 09/13/24 03:00 09/16/24 12:09 0.5 MG Levalbuterol HCl 0.625 mg Q6HWA PRN NEB 09/13/24 03:15 09/16/24 12:08 0.625 MG Piperacillin Sod/ Tazobactam Sod 100 ml @ 25 mls/hr Q8HR IV 09/14/24 06:30 09/18/24 05:38 25 MLS/HR Hydrocortisone Sodium Succinate 50 mg Q6HR IV 09/14/24 12:00 09/18/24 13:02 50 MG Trazodone HCl 50 mg HS PO 09/15/24 23:45 09/14/24 23:56 50 MG Morphine Sulfate 1 mg Q3HP PRN IV 09/15/24 11:00 09/16/24 21:09 1 MG Acetaminophen 650 mg Q6HP PRN GT 09/16/24 10:00 09/16/24 10:47 650 MG Levalbuterol HCl 0.625 mg Q6HR NEB 09/16/24 12:00 09/18/24 12:49 0.625 MG Ipratropium [place] 0.5 mg Q6HR NEB 09/16/24 12:00 09/18/24 12:49 0.5 MG Enteral Nutritional Formula 1,000 ml 40ML/HR GT 09/16/24 11:00 Lorazepam 1 mg Q4HPRN PRN IV 09/17/24 00:00 09/18/24 11:12 1 MG Phenylephrine HCl 250 ml @ 30 mls/hr Q8H20M IV 09/17/24 00:45 09/17/24 01:06 30 MLS/HR objective Somnelent on BiPAP laboratory and microbiology Laboratory Tests 09/18/24 11:00 09/18/24 01:30 Test 09/18/24 01:30 Range/Units Serum Glucose 127 H 74-106 mg/dL Assessment/Plan 1) Malnourishment and feeding difficulty. Pt's family is requesting a PEG tube placement for nutrition support prior to discharge to hospice care, which is not an unreasonable request. Barriers to PEG tube placement include resp distress. 2) Resp distress- Volume overload? and PNA 3) h/o CVA Rec: Cont to hold ASA for now (3-5 days before procedure) Consider cont diuresis Cont treatment for PNA. We will re-assess for optimal time to do PEG tube if possible Dietary Evaluation Review Comments: Cardiac Diet, iron supplementation. Follow up with nephrology consult Expected Outcomes/Goals: Gradual wt loss, improved nutrition related lab values. Plan discussed with: Spouse, Daughter CAICEDOPINKY VALLEJO Tony REAL Sep 18, 2024 14:41
--- NOTE | 2024-09-18 16:33 | DVHPNRES ---
Progress Note Date Seen: Sep 18, 2024 Resident Creating Document: [address] RESIDENT Has the PT tested + for MRSA If YES, has PT been informed?: No Medical Necessity Reason Pt with a Central, PICC or Fol: No (mid line) The following are medically ne: Delgado Catheter Medical Necessity Reason Patient is seen and examined today. Patient was noted to have desaturated on September 16, September 17 and currently on BiPAP and has tachycardia. She is on amiodarone drip. We discussed with the family the goal of care and they have agreed with chemical code. Patient's family is requesting for PEG before patient is discharged on hospice; however per the GI evaluation; that will not be feasible given the intermittent respiratory distress. Family is aware that the patient's condition is deteriorating and recommend hospice and comfort care. Subjective Review of Systems Unable to assess. patient on bipap Objective vital signs Vital Sign Date Time Temp Pulse Resp B/P (MAP) Pulse Ox O2 Delivery O2 Flow Rate FiO2 09/18/24 14:23 134 143/63 89 Facial BiPAP Mask 55 09/18/24 12:30 23 09/18/24 12:00 97.8 97.8 09/16/24 22:00 1 Total Intake and Output 09/17/24 09/17/24 09/18/24 15:00 23:00 07:00 Intake Total 410 ml 336.99 ml 204.63 ml Output Total 475 ml 400 ml Balance 410 ml -138.01 ml -195.37 ml medications Current Medications Medications Dose Ordered Sig/Miranda Route Start Time Stop Time Status Last Admin Dose Admin Nitroglycerin 0.4 mg Q5MINP PRN SL 09/11/24 00:30 Pantoprazole Sodium 40 mg DAILY IV 09/11/24 10:00 09/18/24 10:13 40 MG Atorvastatin Calcium 40 mg HS NG 09/11/24 01:30 09/16/24 21:08 40 MG Levothyroxine Sodium 100 mcg DAILY IV 09/12/24 10:00 09/18/24 10:13 100 MCG Lorazepam 1 mg ONCE PRN IV 09/11/24 22:00 Fluconazole 100 ml @ 100 mls/hr DAILY@1800 IV 09/13/24 18:00 09/17/24 18:08 100 MLS/HR Ipratropium Jansen 0.5 mg Q6HWA PRN NEB 09/13/24 03:00 09/16/24 12:09 0.5 MG Levalbuterol HCl 0.625 mg Q6HWA PRN NEB 09/13/24 03:15 09/16/24 12:08 0.625 MG Piperacillin Sod/ Tazobactam Sod 100 ml @ 25 mls/hr Q8HR IV 09/14/24 06:30 09/18/24 15:35 25 MLS/HR Hydrocortisone Sodium Succinate 50 mg Q6HR IV 09/14/24 12:00 09/18/24 13:02 50 MG Trazodone HCl 50 mg HS PO 09/15/24 23:45 09/14/24 23:56 50 MG Morphine Sulfate 1 mg Q3HP PRN IV 09/15/24 11:00 09/16/24 21:09 1 MG Acetaminophen 650 mg Q6HP PRN GT 09/16/24 10:00 09/16/24 10:47 650 MG Levalbuterol HCl 0.625 mg Q6HR NEB 09/16/24 12:00 09/18/24 12:49 0.625 MG Ipratropium Jansen 0.5 mg Q6HR NEB 09/16/24 12:00 09/18/24 12:49 0.5 MG Enteral Nutritional Formula 1,000 ml 40ML/HR GT 09/16/24 11:00 Lorazepam 1 mg Q4HPRN PRN IV 09/17/24 00:00 09/18/24 11:12 1 MG Phenylephrine HCl 250 ml @ 30 mls/hr Q8H20M IV 09/17/24 00:45 09/17/24 01:06 30 MLS/HR Examination General Appearance: sleepy, deteriorating HEENT: Atraumatic, Respiratory: coarse breath sound, more rhonchi on R Cardiovascular: tachycardia, Normal S1, Normal S2, No murmurs, no chest wall tenderness Abdominal: NO distention, no tenderness, bowel sounds present, no scars noted Extremities: No clubbing, No cyanosis, No edema, Normal pulses, No tenderness/swelling Skin: Has midline on the right arm Neuro: Normal gait, Normal speech Psych/Mental Status: drowsy laboratory and microbiology Laboratory Tests 09/18/24 11:00 09/18/24 01:30 Test 09/18/24 01:30 Range/Units Serum Glucose 127 H 74-106 mg/dL Microbiology Date/Time Source Procedure Growth Status 09/14/24 01:41 Blood Blood Culture - Preliminary NO GROWTH AFTER 72 HOURS OF INCUBATION. Resulted 09/11/24 00:41 Nose MRSA Screen - Final Complete 09/11/24 00:41 Voided Urine Urine Culture - Final Yeast, not Viridiana albicans Complete 09/11/24 00:31 Sputum Gram Stain - Final Complete 09/11/24 00:31 Respiratory Culture - Final Staphylococcus aureus Complete Problem List/Assessment/Plan Problem List/Assessment/Plan Assessment and plan NEUROLOGY: Right sided hemiparesis likely repeated stroke leading to right hemiparesis with speech difficulty. ? Recurrent strokes despite on anticoagulation History of massive CVA with left sided hemiplegic Insomnia on as needed trazodone CARDIOVASCULAR: Paroxysmal atrial fibrillation with secondary hypercoagulable state Status post dual-chamber pacemaker Abott MRI friendly a-sensed v-paced Hypertensive heart disease, LVH: LVEF 65%. Mild LVH mild LV diastolic dysfunction Type II demand mediated NSTEMI, telemetry with conservative management Carotid stenosis ruled out: Bilateral carotid duplex from 06/30/2024 revealed no hemodynamically significant stenosis noted in the bilateral carotid system. Wide QRS, low voltage RBBB Lower risk of significant coronary artery disease: Nuclear stress test from 05/24/2023 revealed ECG findings negative for ischemia and nuclear findings negative for ischemia CT Chest 09/14: Mild cardiomegaly with coronary artery disease. [id number] atherosclerotic vascular disease. on Aspirin, eliquis Obtained Echo result pending RESPIRATORY: Aspiration pneumonia likely due to bulbar function B/l pneumonia gram +ve / gram -ve / atypicals Acute hypoxic respiratory failure on 6 L oxygen Pleural effusion ARDS due to possible aspiration pneumonitis Recurrent desaturation BIPAP continued ( 09/17/2025) - CT chest 09/14: Consolidations with air bronchograms in the bilateral lower lobes with evidence of mucus plugging, suspicious for aspiration. Patchy ground glass opacities in the upper lobes bilaterally, likely infectious or inflammatory in nature. X-ray( 09/14/2024) : Interval worsening of right upper lobe pneumonia. Stop IV fluid Continue vancomycin and Zosyn 4L oxygen NC Sputum culture: No growth GASTROINTESTINAL Failed swallow evaluation GERD with gastritis Protonix TPN Moderate Malnutrition Plan GI consult for PEG; Per GI, it not feasible given patient's intermittent respiratory distress Lactulose for constipation METABOLIC Dyslipidemia Severe hypokalemia resolved obesity grade 1 replenish electrolytes GENITOURINARY Acute complicated cystitis, Yeast positive, No albicans Chronic hypothyroidism CAROLYN due to VMN ( baseline 0.87) fluconazole HEMATOLOGY Chronic macrocytic + iron deficient mixed anemia Monitor H& H closely and transfuse if hgb< 7 ENDOCRINE Hypothyroidism acute on chronic likely due to medication indiscretion Give levothyroxine 100mcg INFECTIOUS DISEASE Septic shock Likely sepsis in the setting of aspiration pneumonia MRSA screen negative Continue vancomycin and zosyn Levophed -resumed 09/13/2024 PICC line for IV antibiotics; unable to obtain 09/14/2024 SKIN Decubitus ulcer high risk Completely bed bound at home. Others History of Breast cancer IV access Central line: right sided IJV: double lumen 09/10/2024; discontinued 09/12/2024 Midline: right upper arm 09/12/2024 Drips: Levophed RESUME 09/13/2024 due to hypotension; Held 09/17/[address] 09/10/2024 DVT prophylaxis: already on Lovenox GI prophylaxis: Protonix Diet: Jevity Disposition: ICU status Goal of care: Family wants hospice with [facility]; Code is modified code; Critical care time 25 minutes, Advance care planning patient, daughter and Plan discussed with Dr. Prieto Plan discussed with: Patient, Spouse, Daughter, Other (Nurses) My Orders My Orders Orders - [address] Procedure Category Date Status Time Head Without Contrast CT 09/18/24 Logged 09:14 Electrocardigram EKG 09/18/24 Logged 15:38 Electrocardigram EKG 09/18/24 Logged 15:38 Dietary Evaluation Review Comments: Cardiac Diet, iron supplementation. Follow up with nephrology consult Expected Outcomes/Goals: Gradual wt loss, improved nutrition related lab values. Date of Service: Sep 18, 2024 Billing Provider: NICK PRIETO MD Common Visit Codes: NOT BILLABLE [address] Sep 18, 2024 16:33 NICK PRIETO MD Sep 22, 2024 14:49
[2024-09-19] VITALS (107 sets, daily range): BP systolic 110–238; BP diastolic 31–149; PULSE 70–175; RESP 11–38; TEMP 97.9–98.8; O2SAT 30–99
[2024-09-19] MEDS: HYDROCORTISONE SOD SUCC 100 MG/2ML INJ VIAL ONE (04:10)
--- NOTE | 2024-09-19 05:29 | DVH ---
EXAM: XR Chest, 1 View CLINICAL INDICATION: Pain TECHNIQUE: Frontal view of the chest. COMPARISON: XR Chest dated 09/18/2024 FINDINGS: LUNGS AND PLEURAL SPACES: See below. HEART: Cardiomegaly with mild congestion. MEDIASTINUM: Unremarkable. Normal mediastinal contour. BONES/JOINTS: Unremarkable. No acute fracture. TUBES, LINES AND DEVICES: Enteric tube tip in the stomach. Left-sided cardiac pacemaker. IMPRESSION: Cardiomegaly with mild congestion.
--- NOTE | 2024-09-19 07:27 | ECG ---
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
--- NOTE | 2024-09-19 07:27 | ECG ---
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
[2024-09-19 09:37] LABS: Basophils # (auto) 0 10 ^3/uL (0-0.2); Basophils % (auto) 0.2 % (0.0-2.0); Eosinophils # (auto) 0 10 ^3/uL (0-0.8); Hematocrit 26.4 % (36.0-46.0); Hemoglobin 8.7 g/dL (12.2-16.2); Lymphocytes # (auto) 0.6 10 ^3/uL (0.4-5.4); Lymphocytes % (auto) 3.8 % (10.0-50.0); Mean Corpuscular Hemoglobin 32.3 pg (28.0-32.0); Mean Corpuscular Hgb Conc. 32.7 g/dL (32.0-36.0); Mean Corpuscular Volume 98.6 fL (80.0-100.0); Monocytes # (auto) 0.5 10 ^3/uL (0-1.3); Monocytes % (auto) 2.8 % (0.0-12.0); Neutrophils # (auto) 16.1 10 ^3/uL (1.6-8.6); Neutrophils % (auto) 93.2 % (37.0-80.0); Nucleated Red Blood Cells % 0.1 %; Platelet Count (auto) 231 10^3/uL (140-450); Red Blood Cells 2.68 10^6/uL (4.0-5.20); Red Cell Distribution Width 16.6 % (11.8-14.3); White Blood Cell 17.2 10^3/uL (4.4-10.8)
[2024-09-19 09:49] LABS: Anion Gap 12 (5-15); Carbon Dioxide 24 mmol/L (20-31)
--- NOTE | 2024-09-19 09:49 | DVHPN2 ---
Progress Note - Dictate Date Seen: Sep 19, 2024 Has the PT tested + for MRSA If YES, has PT been informed?: No Medical Necessity Reason Pt with a Central, PICC or Fol: No (mid line) The following are medically ne: Delgado Catheter Subjective Ms. Posdaa is a 73 years old right-handed female with a history of hypertension, atrial fibrillation, breast cancer, kidney stone, the patient was came to the hospital on 09/11/2024 with a chief company of shortness breath, general weakness, and the patient was found to have pneumonia, respiratory failure, hypotension, and the patient was admitted to ICU, the patient was also has other problems I have seen and examined the patient, , her family in the room with her. I have discussed with her nurse, she is awake, but is very weak, on BiPAP, she nods to answer properly. She can hardly move the extremities She has a desaturation, earlier this morning Blood culture, 09/11/2024: WBC/HB/PLT/MCV, 09/11/2024: 8.5/9.9/225/99.5 PTT/INR/ABG, 09/11/2024: 13.5/1.3/45.9 HCO3, 09/11/2024:19 BUN/CR, 09/11/2024: 30/1.16 HGB A1c, 07/12/2019 5:4.5 Liver function tests, 09/11/2024: Unremarkable TG/HDL/LDL/HDL, 07/14/2024: 89/110/59/26 Vitamin B12, 07/2019 5:1114 Folic acid, 07/2024: 0.9 TSH, 09/11/2024: 15.09 Echocardiogram, 09/14/2024: Technically difficult study. Difficult acoustic windows. Patient is uncooperative. From the limited views obtained there appears to be an underlying sinus tachycardia. There is [id number]-[id number] mitral annular calcification however good excursion of the mitral leaflets. The aortic tricuspid and pulmonic or within normal limits. Left ventricular function is preserved at 60% with normal RV function. Dopplers unremarkable. No pericardial effusion masses or vegetations. Carotid Doppler, 06/30/24: No hemodynamically significant stenosis noted in the right carotid system. No hemodynamically significant stenosis noted in the left carotid system Carotid Doppler, 09/12/2024: No hemodynamically significant stenosis noted in the left carotid system. Chest x-ray, 09/11/2024: 1. Appropriate position of the support lines and tubes. 2. Bilateral pleural effusions. Chest X-ry, 09/18/2024: Cardiomegaly with pulmonary congestion and edema. Superimposed pneumonia cannot be excluded. Check X-ray, 09/19/2024: Cardiomegaly with mild congestion. MRI head, 09/13/2024: 1. Limited stroke protocol. Limited by motion.2. No evidence of acute infarction, intracranial hemorrhage, mass effect or hydrocephalus. 3. Old right MCA infarct. Consider follow-up exam when patient is able to tolerate vital signs Vital Sign Date Time Temp Pulse Resp B/P (MAP) Pulse Ox O2 Delivery O2 Flow Rate FiO2 09/19/24 09:30 82 159/86 96 Facial BiPAP Mask 70 09/19/24 08:15 26 09/19/24 08:00 97.9 97.9 Total Intake and Output 09/18/24 09/18/24 09/19/24 15:00 23:00 07:00 Intake Total 208.28 ml 191.62 ml 258.28 ml Output Total 325 ml 300 ml Balance 208.28 ml -133.38 ml -41.72 ml medications Current Medications Medications Dose Ordered Sig/Miranda Route Start Time Stop Time Status Last Admin Dose Admin Nitroglycerin 0.4 mg Q5MINP PRN SL 09/11/24 00:30 Pantoprazole Sodium 40 mg DAILY IV 09/11/24 10:00 09/18/24 10:13 40 MG Atorvastatin Calcium 40 mg HS NG 09/11/24 01:30 09/16/24 21:08 40 MG Levothyroxine Sodium 100 mcg DAILY IV 09/12/24 10:00 09/18/24 10:13 100 MCG Lorazepam 1 mg ONCE PRN IV 09/11/24 22:00 Fluconazole 100 ml @ 100 mls/hr DAILY@1800 IV 09/13/24 18:00 09/18/24 17:47 100 MLS/HR Ipratropium Horton 0.5 mg Q6HWA PRN NEB 09/13/24 03:00 09/16/24 12:09 0.5 MG Levalbuterol HCl 0.625 mg Q6HWA PRN NEB 09/13/24 03:15 09/16/24 12:08 0.625 MG Piperacillin Sod/ Tazobactam Sod 100 ml @ 25 mls/hr Q8HR IV 09/14/24 06:30 09/19/24 05:09 25 MLS/HR Hydrocortisone Sodium Succinate 50 mg Q6HR IV 09/14/24 12:00 09/19/24 05:09 50 MG Trazodone HCl 50 mg HS PO 09/15/24 23:45 09/14/24 23:56 50 MG Morphine Sulfate 1 mg Q3HP PRN IV 09/15/24 11:00 09/19/24 00:51 1 MG Acetaminophen 650 mg Q6HP PRN GT 09/16/24 10:00 09/16/24 10:47 650 MG Levalbuterol HCl 0.625 mg Q6HR NEB 09/16/24 12:00 09/19/24 05:55 0.625 MG Ipratropium Horton 0.5 mg Q6HR NEB 09/16/24 12:00 09/19/24 05:55 0.5 MG Enteral Nutritional Formula 1,000 ml 40ML/HR GT 09/16/24 11:00 Lorazepam 1 mg Q4HPRN PRN IV 09/17/24 00:00 09/18/24 23:13 1 MG Phenylephrine HCl 250 ml @ 30 mls/hr Q8H20M IV 09/17/24 00:45 09/17/24 01:06 30 MLS/HR objective General: the patient is well developed and nourished. No acute distress. MENTAL STATUS: Subjective SPEECH, LANGUAGE, HIGHER CORTICAL FUNCTION: Subjective CRANIAL NERVES: Pupils are equal, round and reactive. EOMs full and conjugate. Facial sensation intact in all three divisions bilaterally. Mandibular strength intact. Facial muscles symmetrical and strength intact. SENSATION: Sensation to touch and pinprick is finel. MOTOR: Normal tone in the upper and lower extremity. Normal muscle bulk. No fasciculations. No abnormal movements or posturing. She can hardly move the extremities REFLEXES: Deep tendon reflexes normal and symmetrical. No pathological reflexes. CEREBELLAR/COORDINATION: Deferred GAIT/STATION: deferred. laboratory and microbiology Laboratory Tests 09/19/24 09:24 Test 09/19/24 09:24 Range/Units Serum Glucose Pending Problem List Acute respiratory failure secondary to pneumonia Pneumonia/respiratory failure ? Aspiration Right sided weakness in 07/2024, rule out acute stroke Chronic stroke with residual left-sided hemiparesis Atrial fibrillation Coagulopathy Assessment/Plan Monitoring Supportive treatment Follow-up lab ICU care Stabilize vitals Respiratory support/BiPAP Oxygen Eliquis 5 mg b.i.d. Lipitor 40 mg daily GI prophylaxis More recommendation per clinical course This medical document was created using an electronic medical record system with [employer] dictation system. Although this document has been carefully reviewed, there may still be some phonetic and typographical errors. These areas are purely typographical due to imperfections of the software programs, and do not reflect any compromise in the patient's medical care. Prognosis poor Dietary Evaluation Review Comments: Cardiac Diet, iron supplementation. Follow up with nephrology consult Expected Outcomes/Goals: Gradual wt loss, improved nutrition related lab values. Plan discussed with: Other MARY RAMIREZ MD Sep 19, 2024 09:49
[2024-09-19 09:50] LABS: Calcium 9.2 mg/dL (8.7-10.4)
[2024-09-19 09:54] LABS: BUN/Creatinine Ratio 41.8 (10.0-20.0)
[2024-09-19 10:17] LABS: Blood Urea Nitrogen 38 mg/dL (9-23); Chloride 114 mmol/L (98-107); Glucose 173 mg/dL (74-106); Potassium 2.6 mmol/L (3.5-5.1); Sodium 150 mmol/L (136-145)
[2024-09-19 10:41] LABS: Magnesium 2.5 mg/dL (1.6-2.6)
[2024-09-19] MEDS ORDERED: CLINIMIX PER PHARMACY 0 ML IV SCH (12:30)
[2024-09-19 14:09] LABS: INR 1.04 (0.9-1.15); Partial Thromboplastin Time 28.2 SEC (24.5-34.5)
[2024-09-19] MEDS: FUROSEMIDE 20 MG/2 ML VIAL IV ONE (14:09)
--- NOTE | 2024-09-19 15:24 | DVHPNRES ---
Progress Note Date Seen: Sep 19, 2024 Resident Creating Document: [address] RESIDENT Has the PT tested + for MRSA If YES, has PT been informed?: No Medical Necessity Reason Pt with a Central, PICC or Fol: No (mid line) The following are medically ne: PICC Line, Delgado Catheter Medical Necessity Reason Patient is seen and examined today at the bedside. She is on BiPAP and has been on BiPAP since yesterday. Because she kept desaturating as she keeps aspirating. Patient is also currently on antibiotics (Zosyn and fluconazole). Vitals are relatively stable. Sometimes her blood pressure seems to be a little high in the 150s overall has been stable. My attending this have discussion with the family today concerning the status of the patient. He did mentioned that the patient health is deteriorating and recommended hospice. the family was asking for PEG tube. however, the GI doctor said he will wait until the patient is stable. Resume patient on Clinimix, 1 dose of Lasix 20 mg and get him a PICC line for the Clinimix Subjective Review of Systems Constitutional: Denies fever no chills no feeling of malaise HEENT: Denies headache, ear pain, ear discharges, conjunctivitis, nasal discharge throat pain Cardiovascular:tachycardia, resolving pedal edema Respiratory: on Bipap and tachypenic GI: abdominal pain, Denies nausea, vomiting, diarrhea, hematemesis, hematochezia, : Denies frequency, urgency, hematuria, Endocrine: Denies unintentional weight gain or weight loss, feeling of hot flashes, Lester: Denies easy bruising, bleeding disorders, epistaxis Musculoskeletal: Denies joint pains, muscle aches Psych: No evidence of depression, chandu, suicidal ideation Objective vital signs Vital Sign Date Time Temp Pulse Resp B/P (MAP) Pulse Ox O2 Delivery O2 Flow Rate FiO2 09/19/24 14:34 83 21 150/64 09/19/24 14:01 96 Nasal BiPAP Mask 60 09/19/24 12:00 98.0 98.0 Total Intake and Output 09/18/24 09/18/24 09/19/24 15:00 23:00 07:00 Intake Total 208.28 ml 191.62 ml 258.28 ml Output Total 325 ml 300 ml Balance 208.28 ml -133.38 ml -41.72 ml medications Current Medications Medications Dose Ordered Sig/Miranda Route Start Time Stop Time Status Last Admin Dose Admin Nitroglycerin 0.4 mg Q5MINP PRN SL 09/11/24 00:30 Pantoprazole Sodium 40 mg DAILY IV 09/11/24 10:00 09/19/24 10:08 40 MG Atorvastatin Calcium 40 mg HS NG 09/11/24 01:30 09/16/24 21:08 40 MG Levothyroxine Sodium 100 mcg DAILY IV 09/12/24 10:00 09/19/24 10:08 100 MCG Lorazepam 1 mg ONCE PRN IV 09/11/24 22:00 Fluconazole 100 ml @ 100 mls/hr DAILY@1800 IV 09/13/24 18:00 09/18/24 17:47 100 MLS/HR Ipratropium Bryan 0.5 mg Q6HWA PRN NEB 09/13/24 03:00 09/16/24 12:09 0.5 MG Levalbuterol HCl 0.625 mg Q6HWA PRN NEB 09/13/24 03:15 09/16/24 12:08 0.625 MG Piperacillin Sod/ Tazobactam Sod 100 ml @ 25 mls/hr Q8HR IV 09/14/24 06:30 09/19/24 14:09 25 MLS/HR Hydrocortisone Sodium Succinate 50 mg Q6HR IV 09/14/24 12:00 09/19/24 12:13 50 MG Trazodone HCl 50 mg HS PO 09/15/24 23:45 09/14/24 23:56 50 MG Morphine Sulfate 1 mg Q3HP PRN IV 09/15/24 11:00 09/19/24 14:34 1 MG Acetaminophen 650 mg Q6HP PRN GT 09/16/24 10:00 09/16/24 10:47 650 MG Levalbuterol HCl 0.625 mg Q6HR NEB 09/16/24 12:00 09/19/24 11:44 0.625 MG Ipratropium Bryan 0.5 mg Q6HR NEB 09/16/24 12:00 09/19/24 11:44 0.5 MG Enteral Nutritional Formula 1,000 ml 40ML/HR GT 09/16/24 11:00 Lorazepam 1 mg Q4HPRN PRN IV 09/17/24 00:00 09/18/24 23:13 1 MG Phenylephrine HCl 250 ml @ 30 mls/hr Q8H20M IV 09/17/24 00:45 09/17/24 01:06 30 MLS/HR Amino Acids 0 ml @ 0 mls/hr PER PHARMACY IV 09/19/24 12:30 Diagnostic Test (Pha) 1 strip Q6HR 09/20/24 00:00 Insulin Human Regular FOLLOW SLIDING SCALE Q6HR SC 09/20/24 00:00 Dextrose 50 ml UD IV 09/20/24 00:00 Amino Acids/ Electrolytes/ Dextrose 1,000 ml @ 41 mls/hr DAILY@2200 IV 09/19/24 22:00 Examination General Appearance: alert and orient, response to questions by nodding HEENT: Atraumatic, Respiratory: coarse breath sound, more rhonchi on R, same as before Cardiovascular: tachycardia, Normal S1, Normal S2, No murmurs, no chest wall tenderness Abdominal: NO distention, no tenderness, bowel sounds present, no scars noted Extremities: No clubbing, No cyanosis, No edema, Normal pulses, No tenderness/swelling Skin: Has midline on the right arm Neuro: Normal gait, Normal speech Psych/Mental Status: stable laboratory and microbiology Laboratory Tests 09/19/24 09:24 Test 09/19/24 09:24 Range/Units Serum Glucose 173 H 74-106 mg/dL Microbiology Date/Time Source Procedure Growth Status 09/14/24 01:41 Blood Blood Culture - Final NO GROWTH AFTER 5 DAYS OF INCUBATION. Complete 09/11/24 00:41 Nose MRSA Screen - Final Complete 09/11/24 00:41 Voided Urine Urine Culture - Final Yeast, not Viridiana albicans Complete 09/11/24 00:31 Sputum Gram Stain - Final Complete 09/11/24 00:31 Respiratory Culture - Final Staphylococcus aureus Complete Problem List/Assessment/Plan Problem List/Assessment/Plan Assessment and plan NEUROLOGY: Right sided hemiparesis likely repeated stroke leading to right hemiparesis with speech difficulty. ? Recurrent strokes despite on anticoagulation History of massive CVA with left sided hemiplegic Insomnia on as needed trazodone CARDIOVASCULAR: Paroxysmal atrial fibrillation with secondary hypercoagulable state Status post dual-chamber pacemaker Abott MRI friendly a-sensed v-paced Hypertensive heart disease, LVH: LVEF 65%. Mild LVH mild LV diastolic dysfunction Type II demand mediated NSTEMI, telemetry with conservative management Carotid stenosis ruled out: Bilateral carotid duplex from 06/30/2024 revealed no hemodynamically significant stenosis noted in the bilateral carotid system. Wide QRS, low voltage RBBB Lower risk of significant coronary artery disease: Nuclear stress test from 05/24/2023 revealed ECG findings negative for ischemia and nuclear findings negative for ischemia CT Chest 09/14: Mild cardiomegaly with coronary artery disease. [id number] atherosclerotic vascular disease. on Aspirin, elichanel Obtained Echo result pending Amiodarine drip since 09/15 RESPIRATORY: Aspiration pneumonia likely due to bulbar function B/l pneumonia gram +ve / gram -ve / atypicals Acute hypoxic respiratory failure on 6 L oxygen Pleural effusion ARDS due to possible aspiration pneumonitis Recurrent desaturation BIPAP continued ( 09/17/2025) - CT chest 09/14: Consolidations with air bronchograms in the bilateral lower lobes with evidence of mucus plugging, suspicious for aspiration. Patchy ground glass opacities in the upper lobes bilaterally, likely infectious or inflammatory in nature. X-ray( 09/14/2024) : Interval worsening of right upper lobe pneumonia. Stop IV fluid Continue vancomycin and Zosyn 4L oxygen NC Sputum culture: No growth GASTROINTESTINAL Failed swallow evaluation GERD with gastritis Protonix TPN Moderate Malnutrition Plan GI consult for PEG; Per GI, it not feasible given patient's intermittent respiratory distress Lactulose for constipation METABOLIC Dyslipidemia Severe hypokalemia resolved obesity grade 1 replenish electrolytes GENITOURINARY Acute complicated cystitis, Yeast positive, No albicans Chronic hypothyroidism CAROLYN due to VMN ( baseline 0.87) fluconazole HEMATOLOGY Chronic macrocytic + iron deficient mixed anemia Monitor H& H closely and transfuse if hgb< 7 Coagulopathy- improved ENDOCRINE Hypothyroidism acute on chronic likely due to medication indiscretion Give levothyroxine 100mcg INFECTIOUS DISEASE Septic shock Likely sepsis in the setting of aspiration pneumonia MRSA screen negative Continue zosyn and fluconazole Levophed -resumed 09/13/2024, Stopped being on it intermittently, prn) PICC line for IV antibiotics; unable to obtain 09/14/2024 PICC line trial today 09/18/2024 SKIN Decubitus ulcer high risk Completely bed bound at home. Others History of Breast cancer- outpatient follow up IV access Central line: right sided IJV: double lumen 09/10/2024; discontinued 09/12/2024 Midline: right upper arm 09/12/2024 PICC pending for Clinimix Drips: Levophed RESUME 09/13/2024 due to hypotension; Held 09/15/[address] catheter in [address] 09/10/2024 DVT prophylaxis: already on Lovenox GI prophylaxis: Protonix Diet: Jevity, stopped 09/15/2024 Disposition: ICU status Goal of care: Family wants hospice with [facility]; Code is modified code ( Chemical code) Critical care time 30 minutes, Advance care planning patient, daughter and Plan discussed with Dr. Prieto Plan discussed with: Patient My Orders My Orders Orders - [address] Procedure Category Date Status Time Chest Portable XY 09/19/24 Resulted 04:00 Abg W/ Co-Ox RT 09/19/24 Logged 05:00 Dietary Evaluation Review Comments: Cardiac Diet, iron supplementation. Follow up with nephrology consult Expected Outcomes/Goals: Gradual wt loss, improved nutrition related lab values. Date of Service: Sep 19, 2024 Billing Provider: NICK PRIETO MD Common Visit Codes: NOT BILLABLE [address] Sep 19, 2024 15:24 NICK PRIETO MD Sep 22, 2024 14:50
--- NOTE | 2024-09-19 16:35 | DVHPN2 ---
Progress Note - Dictate Date Seen: Sep 19, 2024 Has the PT tested + for MRSA If YES, has PT been informed?: No Medical Necessity Reason Pt with a Central, PICC or Fol: No (mid line) The following are medically ne: PICC Line, Delgado Catheter Subjective Patient is seen and examined we will family at bedside. The patient remains on BiPAP. CXR shows pulm vasc congestion. vital signs Vital Sign Date Time Temp Pulse Resp B/P (MAP) Pulse Ox O2 Delivery O2 Flow Rate FiO2 09/19/24 16:11 74 137/60 96 Nasal BiPAP Mask 50 09/19/24 15:04 22 09/19/24 12:00 98.0 98.0 Total Intake and Output 09/18/24 09/18/24 09/19/24 15:00 23:00 07:00 Intake Total 208.28 ml 191.62 ml 258.28 ml Output Total 325 ml 300 ml Balance 208.28 ml -133.38 ml -41.72 ml medications Current Medications Medications Dose Ordered Sig/Miranda Route Start Time Stop Time Status Last Admin Dose Admin Nitroglycerin 0.4 mg Q5MINP PRN SL 09/11/24 00:30 Pantoprazole Sodium 40 mg DAILY IV 09/11/24 10:00 09/19/24 10:08 40 MG Atorvastatin Calcium 40 mg HS NG 09/11/24 01:30 09/16/24 21:08 40 MG Levothyroxine Sodium 100 mcg DAILY IV 09/12/24 10:00 09/19/24 10:08 100 MCG Lorazepam 1 mg ONCE PRN IV 09/11/24 22:00 Fluconazole 100 ml @ 100 mls/hr DAILY@1800 IV 09/13/24 18:00 09/18/24 17:47 100 MLS/HR Ipratropium Beatty 0.5 mg Q6HWA PRN NEB 09/13/24 03:00 09/16/24 12:09 0.5 MG Levalbuterol HCl 0.625 mg Q6HWA PRN NEB 09/13/24 03:15 09/16/24 12:08 0.625 MG Piperacillin Sod/ Tazobactam Sod 100 ml @ 25 mls/hr Q8HR IV 09/14/24 06:30 09/19/24 14:09 25 MLS/HR Hydrocortisone Sodium Succinate 50 mg Q6HR IV 09/14/24 12:00 09/19/24 12:13 50 MG Trazodone HCl 50 mg HS PO 09/15/24 23:45 09/14/24 23:56 50 MG Morphine Sulfate 1 mg Q3HP PRN IV 09/15/24 11:00 09/19/24 14:34 1 MG Acetaminophen 650 mg Q6HP PRN GT 09/16/24 10:00 09/16/24 10:47 650 MG Levalbuterol HCl 0.625 mg Q6HR NEB 09/16/24 12:00 09/19/24 11:44 0.625 MG Ipratropium Beatty 0.5 mg Q6HR NEB 09/16/24 12:00 09/19/24 11:44 0.5 MG Enteral Nutritional Formula 1,000 ml 40ML/HR GT 09/16/24 11:00 Lorazepam 1 mg Q4HPRN PRN IV 09/17/24 00:00 09/18/24 23:13 1 MG Phenylephrine HCl 250 ml @ 30 mls/hr Q8H20M IV 09/17/24 00:45 09/17/24 01:06 30 MLS/HR Amino Acids 0 ml @ 0 mls/hr PER PHARMACY IV 09/19/24 12:30 Diagnostic Test (Pha) 1 strip Q6HR 09/20/24 00:00 Insulin Human Regular FOLLOW SLIDING SCALE Q6HR SC 09/20/24 00:00 Dextrose 50 ml UD IV 09/20/24 00:00 Amino Acids/ Electrolytes/ Dextrose 1,000 ml @ 41 mls/hr DAILY@2200 IV 09/19/24 22:00 objective Somnelent on BiPAP laboratory and microbiology Laboratory Tests 09/19/24 09:24 Test 09/19/24 09:24 Range/Units Serum Glucose 173 H 74-106 mg/dL Assessment/Plan 1) Malnourishment and feeding difficulty. Pt's family is requesting a PEG tube placement for nutrition support prior to discharge to hospice care, which is not an unreasonable request. Barriers to PEG tube placement include resp distress. 2) Resp distress- Volume overload? and PNA 3) h/o CVA PO2 for Rec: Consider cont diuresis Cont treatment for PNA. TPN orders pending. We will re-assess for optimal time to do PEG tube if possible Dietary Evaluation Review Comments: Cardiac Diet, iron supplementation. Follow up with nephrology consult Expected Outcomes/Goals: Gradual wt loss, improved nutrition related lab values. Plan discussed with: Patient, Daughter PINKY CAICEDO MD Sep 19, 2024 16:35
[2024-09-19] MEDS: LIDOCAINE 1% (LOCAL ANESTH.) PF 5ml SDV ID ONE (17:22)
[2024-09-19] MEDS: POTASSIUM CHLORIDE 60 MEQ, LIDOCAINE 1% (LOCAL ANESTH.) 6 ML in SODIUM CHL 0.9% 500 ML IV ONE (18:30)
[2024-09-19] MEDS: hydrALAZINE HCL 20 MG/ML VL IV ONE (19:22)
--- NOTE | 2024-09-19 20:00 | DVH ---
CHEST RADIOGRAPH Indication: PICC LINE PLACEMENT. TO BE ORDERED BY PICC LINE NURSE Technique: Single frontal view of the chest was obtained Comparison: XY CHEST PORTABLE on DOS: 09/19/24, XY CHEST PORTABLE on DOS: 09/18/24, XY CHEST PORTABLE o n DOS: 09/17/24 FINDINGS: Lines and Tubes: None Lungs: Bibasilar areas of airspace disease or atelectasis. Lung unchanged from 3:54 a.m. Pleura: No effusion. No pneumothorax. Cardiomediastinal contours: Unremarkable Bones: No acute osseous abnormality. IMPRESSION: 1. No significant change 3:54 a.m..
[2024-09-19] MEDS: LORazepam 2MG/ML-1ML VIAL IV PRN (21:37)
[2024-09-19] MEDS: AMINO ACID INFUSION IN D10W 1,000 ML IV SCH (22:00)
[2024-09-19] MEDS: SODIUM CHLOR 0.9% PF (SALINE LOCK) 10ML VIAL/SYR IV SCH (22:28)
[2024-09-19] MEDS: ENOXAPARIN SOD 100 MG/1 ML SYRINGE SC SCH (22:33)
[2024-09-19] MEDS: hydrALAZINE HCL 20 MG/ML VL IV PRN (22:53)
[2024-09-20] VITALS (117 sets, daily range): BP systolic 82–176; BP diastolic 16–117; PULSE 70–151; RESP 15–34; TEMP 97.7–98.6; O2SAT 92–100
[2024-09-20] MEDS ORDERED: DEXTROSE (50%) 50ML SYRG IV SCH
[2024-09-20] MEDS: InsuLIN REG 1unit/0.01ml Soln (100units/ml) SC SCH
[2024-09-20] MEDS: ACCU-CHEK COMFORT CURVE STRIP VI SCH (00:15)
[2024-09-20 05:34] LABS: Alkaline Phosphatase 100 U/L (46-116); Anion Gap 11 (5-15); BUN/Creatinine Ratio 49.4 (10.0-20.0); Bilirubin, Total 0.3 mg/dL (0.2-1.0); Carbon Dioxide 26 mmol/L (20-31); Chloride 117 mmol/L (98-107); Glucose 137 mg/dL (74-106); Magnesium 2.4 mg/dL (1.6-2.6); Phosphorus 2.5 mg/dL (2.4-5.1); Potassium 3.2 mmol/L (3.5-5.1); Sodium 154 mmol/L (136-145)
[2024-09-20 05:35] LABS: Alanine Aminotransferase 66 U/L (7-40); Albumin 2.9 g/dL (3.2-4.8); Aspartate Aminotransferase 85 U/L (<34); Blood Urea Nitrogen 40 mg/dL (9-23); Calcium 8.5 mg/dL (8.7-10.4); Total Protein 5.1 g/dL (5.7-8.2)
[2024-09-20 06:22] LABS: Base Excess 0.5 mmol/L (-2.0-3.0)
[2024-09-20 07:30] LABS: Basophils # (auto) 0 10 ^3/uL (0-0.2); Eosinophils # (auto) 0 10 ^3/uL (0-0.8); Hematocrit 23.1 % (36.0-46.0); Hemoglobin 7.6 g/dL (12.2-16.2); Lymphocytes # (auto) 0.5 10 ^3/uL (0.4-5.4); Mean Corpuscular Hemoglobin 32.4 pg (28.0-32.0); Mean Corpuscular Hgb Conc. 33.1 g/dL (32.0-36.0); Monocytes # (auto) 0.4 10 ^3/uL (0-1.3); Monocytes % (auto) 2.7 % (0.0-12.0); Neutrophils # (auto) 12.5 10 ^3/uL (1.6-8.6); Neutrophils % (auto) 93.3 % (37.0-80.0); Nucleated Red Blood Cells % 0.1 %; Platelet Count (auto) 209 10^3/uL (140-450); Red Blood Cells 2.36 10^6/uL (4.0-5.20); Red Cell Distribution Width 16.5 % (11.8-14.3); White Blood Cell 13.4 10^3/uL (4.4-10.8)
--- NOTE | 2024-09-20 10:32 | DVHPN2 ---
Progress Note - Dictate Date Seen: Sep 20, 2024 Has the PT tested + for MRSA If YES, has PT been informed?: No Medical Necessity Reason Pt with a Central, PICC or Fol: No (mid line) The following are medically ne: PICC Line, Delgado Catheter Subjective Ms. Posada is a 73 years old right-handed female with a history of hypertension, atrial fibrillation, breast cancer, kidney stone, the patient was came to the hospital on 09/11/2024 with a chief company of shortness breath, general weakness, and the patient was found to have pneumonia, respiratory failure, hypotension, and the patient was admitted to ICU, the patient was also has other problems I have seen and examined the patient, her son in the room, I have talked to her nurse. She talked to her earlier today, the patient remained very weak, on BiPAP, she nods to answer properly. She can hardly move the extremities Blood culture, 09/11/2024: WBC/HB/PLT/MCV, 09/11/2024: 8.5/9.9/225/99.5 PTT/INR/ABG, 09/11/2024: 13.5/1.3/45.9 HCO3, 09/11/2024:19 BUN/CR, 09/11/2024: 30/1.16 HGB A1c, 07/12/2019 5:4.5 Liver function tests, 09/11/2024: Unremarkable TG/HDL/LDL/HDL, 07/14/2024: 89/110/59/26 Vitamin B12, 07/2019 5:1114 Folic acid, 07/2024: 0.9 TSH, 09/11/2024: 15.09 Echocardiogram, 09/14/2024: Technically difficult study. Difficult acoustic windows. Patient is uncooperative. From the limited views obtained there appears to be an underlying sinus tachycardia. There is [id number] mitral annular calcification however good excursion of the mitral leaflets. The aortic tricuspid and pulmonic or within normal limits. Left ventricular function is preserved at 60% with normal RV function. Dopplers unremarkable. No pericardial effusion masses or vegetations. Carotid Doppler, 06/30/24: No hemodynamically significant stenosis noted in the right carotid system. No hemodynamically significant stenosis noted in the left carotid system Carotid Doppler, 09/12/2024: No hemodynamically significant stenosis noted in the left carotid system. Chest x-ray, 09/11/2024: 1. Appropriate position of the support lines and tubes. 2. Bilateral pleural effusions. Chest X-ry, 09/18/2024: Cardiomegaly with pulmonary congestion and edema. Superimposed pneumonia cannot be excluded. Check X-ray, 09/19/2024: Cardiomegaly with mild congestion. MRI head, 09/13/2024: 1. Limited stroke protocol. Limited by motion.2. No evidence of acute infarction, intracranial hemorrhage, mass effect or hydrocephalus. 3. Old right MCA infarct. Consider follow-up exam when patient is able to tolerate vital signs Vital Sign Date Time Temp Pulse Resp B/P (MAP) Pulse Ox O2 Delivery O2 Flow Rate FiO2 09/20/24 08:00 82 26 96 Bi-Pap+ 55 55 09/20/24 07:51 117/43 09/20/24 04:00 98.6 98.6 Total Intake and Output 09/19/24 09/19/24 09/20/24 15:00 23:00 07:00 Intake Total 183.28 ml 721.605 ml 429.613 ml Output Total 550 ml 250 ml Balance 183.28 ml 171.605 ml 179.613 ml medications Current Medications Medications Dose Ordered Sig/Miranda Route Start Time Stop Time Status Last Admin Dose Admin Nitroglycerin 0.4 mg Q5MINP PRN SL 09/11/24 00:30 Pantoprazole Sodium 40 mg DAILY IV 09/11/24 10:00 09/19/24 10:08 40 MG Atorvastatin Calcium 40 mg HS NG 09/11/24 01:30 09/16/24 21:08 40 MG Levothyroxine Sodium 100 mcg DAILY IV 09/12/24 10:00 09/20/24 10:14 100 MCG Lorazepam 1 mg ONCE PRN IV 09/11/24 22:00 Fluconazole 100 ml @ 100 mls/hr DAILY@1800 IV 09/13/24 18:00 09/19/24 18:15 100 MLS/HR Ipratropium Pavo 0.5 mg Q6HWA PRN NEB 09/13/24 03:00 09/16/24 12:09 0.5 MG Levalbuterol HCl 0.625 mg Q6HWA PRN NEB 09/13/24 03:15 09/16/24 12:08 0.625 MG Piperacillin Sod/ Tazobactam Sod 100 ml @ 25 mls/hr Q8HR IV 09/14/24 06:30 09/20/24 05:35 25 MLS/HR Hydrocortisone Sodium Succinate 50 mg Q6HR IV 09/14/24 12:00 09/20/24 05:35 50 MG Trazodone HCl 50 mg HS PO 09/15/24 23:45 09/14/24 23:56 50 MG Morphine Sulfate 1 mg Q3HP PRN IV 09/15/24 11:00 09/20/24 00:15 1 MG Acetaminophen 650 mg Q6HP PRN GT 09/16/24 10:00 09/16/24 10:47 650 MG Levalbuterol HCl 0.625 mg Q6HR NEB 09/16/24 12:00 09/20/24 06:13 0.625 MG Ipratropium Pavo 0.5 mg Q6HR NEB 09/16/24 12:00 09/20/24 06:13 0.5 MG Enteral Nutritional Formula 1,000 ml 40ML/HR GT 09/16/24 11:00 Lorazepam 1 mg Q4HPRN PRN IV 09/17/24 00:00 09/19/24 21:37 1 MG Phenylephrine HCl 250 ml @ 30 mls/hr Q8H20M IV 09/17/24 00:45 09/17/24 01:06 30 MLS/HR Amino Acids 0 ml @ 0 mls/hr PER PHARMACY IV 09/19/24 12:30 Diagnostic Test (Pha) 1 strip Q6HR 09/20/24 00:00 09/20/24 05:35 1 STRIP Insulin Human Regular FOLLOW SLIDING SCALE Q6HR SC 09/20/24 00:00 09/20/24 06:00 2 UNITS Dextrose 50 ml UD IV 09/20/24 00:00 Amino Acids/ Electrolytes/ Dextrose 1,000 ml @ 41 mls/hr DAILY@2200 IV 09/19/24 22:00 09/20/24 05:37 41 MLS/HR Sodium Chloride 10 ml QSHIFT@10,22 IV 09/19/24 22:00 09/20/24 10:14 10 ML Hydralazine HCl 10 mg Q6HP PRN IV 09/19/24 19:00 09/19/24 22:53 10 MG Enoxaparin Sodium 40 mg DAILY SC 09/21/24 10:00 UNV objective General: the patient is well developed and nourished. No acute distress. MENTAL STATUS: Subjective SPEECH, LANGUAGE, HIGHER CORTICAL FUNCTION: Subjective CRANIAL NERVES: Pupils are equal, round and reactive. EOMs full and conjugate. Facial sensation intact in all three divisions bilaterally. Mandibular strength intact. Facial muscles symmetrical and strength intact. SENSATION: Sensation to touch and pinprick is finel. MOTOR: Normal tone in the upper and lower extremity. Normal muscle bulk. No fasciculations. No abnormal movements or posturing. She can hardly move the extremities REFLEXES: Deep tendon reflexes normal and symmetrical. No pathological reflexes. CEREBELLAR/COORDINATION: Deferred GAIT/STATION: deferred. laboratory and microbiology Laboratory Tests 09/20/24 04:55 Test 09/20/24 04:55 Range/Units Serum Glucose 137 H 74-106 mg/dL Problem List Acute respiratory failure secondary to pneumonia Pneumonia/respiratory failure ? Aspiration Right sided weakness in 07/2024, rule out acute stroke Chronic stroke with residual left-sided hemiparesis Atrial fibrillation Coagulopathy Assessment/Plan Monitoring Supportive treatment Follow-up lab ICU care Stabilize vitals Respiratory support/BiPAP Oxygen Eliquis 5 mg b.i.d. Lipitor 40 mg daily GI prophylaxis More recommendation per clinical course This medical document was created using an electronic medical record system with [employer] dictation system. Although this document has been carefully reviewed, there may still be some phonetic and typographical errors. These areas are purely typographical due to imperfections of the software programs, and do not reflect any compromise in the patient's medical care. Prognosis poor Dietary Evaluation Review Comments: Cardiac Diet, iron supplementation. Follow up with nephrology consult Expected Outcomes/Goals: Gradual wt loss, improved nutrition related lab values. Plan discussed with: Son, Other MARY RAMIREZ MD Sep 20, 2024 10:32
[2024-09-20] MEDS: ENOXAPARIN SOD 40 MG/0.4 ML SYRINGE SC ONE (11:24)
[2024-09-20] MEDS: POTASSIUM CHLORIDE 60 MEQ, LIDOCAINE 1% (LOCAL ANESTH.) 6 ML in SODIUM CHL 0.9% 500 ML IV ONE (11:24)
[2024-09-20] MEDS ORDERED: POTASSIUM PHOSPHATE 26.4 MEQ in SODIUM CHL 0.9% 100 ML IV ONE (12:00)
[2024-09-20] MEDS: FUROSEMIDE 20 MG/2 ML VIAL IV ONE (15:20)
[2024-09-20] MEDS: ACETYLCYSTEINE 10 %(100MG/ML) SOL 4ML NEB ONE (15:39)
[2024-09-20] MEDS ORDERED: TPN PER PHARMACY 0 ML IV SCH (16:15)
--- NOTE | 2024-09-20 16:20 | DVHPNRES ---
Progress Note Date Seen: Sep 20, 2024 Resident Creating Document: [address] RESIDENT Has the PT tested + for MRSA If YES, has PT been informed?: No Medical Necessity Reason Pt with a Central, PICC or Fol: No (mid line) The following are medically ne: PICC Line, Delgado Catheter Medical Necessity Reason Patient seen and examined at the bedside this morning. She medical state fluctuates. Sometimes she is doing better, other times she is desaturates to the 80s and her blood pressure yesterday was high in the 200s ( SBP). She received IV hydralazine 10 mg as needed. This morning, her blood pressure is fine however her DBP has been running in the low 40s and upper 30s. Patient's condition is guarded. She has been having an aspiration pneumonia and right now her lungs this so congested difficulties breathing she is tachypneic. Not sure if patient is stable or we will be stable enough with a PEG tube. Patient is currently on Clinimix we will advance her nutritional intake to TPN per pharmacy. She continues to remain in bipap. Subjective Review of Systems Constitutional: Denies fever no chills, On bipap; Generalized body pain HEENT: Denies headache, ear pain, ear discharges, conjunctivitis, nasal discharge throat pain Cardiovascular: Denies chest pain, palpitation, orthopnea, PND, or pedal edema Respiratory: shortness of breath,cough, sputum production, hemoptysis, GI: Mild abdominal pain, nausea, vomiting, diarrhea, hematemesis, hematochezia, : Denies frequency, urgency, hematuria, Endocrine: Denies unintentional weight gain or weight loss, feeling of hot flashes, Lester: Denies easy bruising, bleeding disorders, epistaxis Musculoskeletal:right leg pains Psych: No evidence of depression, chandu, suicidal ideation Objective vital signs Vital Sign Date Time Temp Pulse Resp B/P (MAP) Pulse Ox O2 Delivery O2 Flow Rate FiO2 09/20/24 15:48 151 33 141/47 09/20/24 14:01 97 09/20/24 14:00 Bi-Pap+ 55 55 09/20/24 12:01 97.7 97.7 Total Intake and Output 09/19/24 09/19/24 09/20/24 15:00 23:00 07:00 Intake Total 183.28 ml 721.605 ml 429.613 ml Output Total 550 ml 250 ml Balance 183.28 ml 171.605 ml 179.613 ml medications Current Medications Medications Dose Ordered Sig/Miranda Route Start Time Stop Time Status Last Admin Dose Admin Nitroglycerin 0.4 mg Q5MINP PRN SL 09/11/24 00:30 Pantoprazole Sodium 40 mg DAILY IV 09/11/24 10:00 09/19/24 10:08 40 MG Atorvastatin Calcium 40 mg HS NG 09/11/24 01:30 09/16/24 21:08 40 MG Levothyroxine Sodium 100 mcg DAILY IV 09/12/24 10:00 09/20/24 10:14 100 MCG Lorazepam 1 mg ONCE PRN IV 09/11/24 22:00 Fluconazole 100 ml @ 100 mls/hr DAILY@1800 IV 09/13/24 18:00 09/19/24 18:15 100 MLS/HR Ipratropium [place] 0.5 mg Q6HWA PRN NEB 09/13/24 03:00 09/20/24 15:08 0.5 MG Levalbuterol HCl 0.625 mg Q6HWA PRN NEB 09/13/24 03:15 09/20/24 15:07 0.625 MG Piperacillin Sod/ Tazobactam Sod 100 ml @ 25 mls/hr Q8HR IV 09/14/24 06:30 09/20/24 14:18 25 MLS/HR Hydrocortisone Sodium Succinate 50 mg Q6HR IV 09/14/24 12:00 09/20/24 12:12 50 MG Trazodone HCl 50 mg HS PO 09/15/24 23:45 09/14/24 23:56 50 MG Morphine Sulfate 1 mg Q3HP PRN IV 09/15/24 11:00 09/20/24 15:48 1 MG Acetaminophen 650 mg Q6HP PRN GT 09/16/24 10:00 09/16/24 10:47 650 MG Levalbuterol HCl 0.625 mg Q6HR NEB 09/16/24 12:00 09/20/24 12:22 0.625 MG Ipratropium [place] 0.5 mg Q6HR NEB 09/16/24 12:00 09/20/24 12:22 0.5 MG Enteral Nutritional Formula 1,000 ml 40ML/HR GT 09/16/24 11:00 Lorazepam 1 mg Q4HPRN PRN IV 09/17/24 00:00 09/19/24 21:37 1 MG Phenylephrine HCl 250 ml @ 30 mls/hr Q8H20M IV 09/17/24 00:45 09/17/24 01:06 30 MLS/HR Amino Acids 0 ml @ 0 mls/hr PER PHARMACY IV 09/19/24 12:30 Diagnostic Test (Pha) 1 strip Q6HR 09/20/24 00:00 09/20/24 12:13 1 STRIP Insulin Human Regular FOLLOW SLIDING SCALE Q6HR SC 09/20/24 00:00 09/20/24 12:22 2 UNITS Dextrose 50 ml UD IV 09/20/24 00:00 Amino Acids/ Electrolytes/ Dextrose 1,000 ml @ 41 mls/hr DAILY@2200 IV 09/19/24 22:00 09/20/24 05:37 41 MLS/HR Sodium Chloride 10 ml QSHIFT@10,22 IV 09/19/24 22:00 09/20/24 10:14 10 ML Hydralazine HCl 10 mg Q6HP PRN IV 09/19/24 19:00 09/19/24 22:53 10 MG Enoxaparin Sodium 40 mg DAILY SC 09/21/24 10:00 Amino Acids 0 ml @ 0 mls/hr PER PHARMACY IV 09/20/24 16:15 UNV Examination General Appearance: alert and orient, response to questions by nodding HEENT: Atraumatic, Respiratory: coarse breath sound, more rhonchi on R, same as before Cardiovascular: tachycardia, Normal S1, Normal S2, No murmurs, no chest wall tenderness Abdominal: NO distention, no tenderness, bowel sounds present, no scars noted Extremities: left sided hemiplegic, right sided hemiparesis Skin: Has midline on the right arm Neuro: Nodding to speech Psych/Mental Status: stable laboratory and microbiology laboratory and microbiology Laboratory Tests 09/20/24 04:55 Test 09/20/24 04:55 Range/Units Serum Glucose 137 H 74-106 mg/dL Microbiology Date/Time Source Procedure Growth Status 09/14/24 01:41 Blood Blood Culture - Final NO GROWTH AFTER 5 DAYS OF INCUBATION. Complete 09/11/24 00:41 Nose MRSA Screen - Final Complete 09/11/24 00:41 Voided Urine Urine Culture - Final Yeast, not Viridiana albicans Complete 09/11/24 00:31 Sputum Gram Stain - Final Complete 09/11/24 00:31 Respiratory Culture - Final Staphylococcus aureus Complete Problem List/Assessment/Plan Problem List/Assessment/Plan Assessment and plan NEUROLOGY: Right sided hemiparesis likely repeated stroke leading to right hemiparesis with speech difficulty. ? Recurrent strokes despite on anticoagulation History of massive CVA with left sided hemiplegic Insomnia on as needed trazodone CARDIOVASCULAR: Paroxysmal atrial fibrillation with secondary hypercoagulable state Status post dual-chamber pacemaker Abott MRI friendly a-sensed v-paced Hypertensive heart disease, LVH: LVEF 65%. Mild LVH mild LV diastolic dysfunction Type II demand mediated NSTEMI, telemetry with conservative management Carotid stenosis ruled out: Bilateral carotid duplex from 06/30/2024 revealed no hemodynamically significant stenosis noted in the bilateral carotid system. Wide QRS, low voltage RBBB Lower risk of significant coronary artery disease: Nuclear stress test from 05/24/2023 revealed ECG findings negative for ischemia and nuclear findings negative for ischemia CT Chest 09/14: Mild cardiomegaly with coronary artery disease. [id number] atherosclerotic vascular disease. on Aspirin, naomie Obtained Echo result pending Amiodarine drip since 09/15 RESPIRATORY: Aspiration pneumonia likely due to bulbar function B/l pneumonia gram +ve / gram -ve / atypicals Acute hypoxic respiratory failure on 6 L oxygen Pleural effusion ARDS due to possible aspiration pneumonitis Recurrent desaturation BIPAP continued ( 09/17/2025) Lung very coarse; give acetylcysteine 10% q6hrs - CT chest 09/14: Consolidations with air bronchograms in the bilateral lower lobes with evidence of mucus plugging, suspicious for aspiration. Patchy ground glass opacities in the upper lobes bilaterally, likely infectious or inflammatory in nature. X-ray( 09/14/2024) : Interval worsening of right upper lobe pneumonia. Stop IV fluid Continue Zosyn 4L oxygen NC Sputum culture: No growth GASTROINTESTINAL Failed swallow evaluation GERD with gastritis Protonix TPN Moderate Malnutrition Plan GI consult for PEG; Per GI, it not feasible given patient's intermittent respiratory distress Lactulose for constipation METABOLIC Dyslipidemia Severe hypokalemia resolved obesity grade 1 replenish electrolytes GENITOURINARY Acute complicated cystitis, Yeast positive, No albicans Chronic hypothyroidism CAROLYN due to VMN ( baseline 0.87) fluconazole HEMATOLOGY Chronic macrocytic + iron deficient mixed anemia Monitor H& H closely and transfuse if hgb< 7 Coagulopathy- improved ENDOCRINE Hypothyroidism acute on chronic likely due to medication indiscretion Give levothyroxine 100mcg INFECTIOUS DISEASE Severe sepsis with Septic shock Likely sepsis in the setting of aspiration pneumonia MRSA screen negative Continue zosyn; ( fluconazole , stopped 09/20/2024) Levophed -resumed 09/13/2024, Stopped being on it intermittently, prn) PICC line for IV antibiotics; unable to obtain 09/14/2024 PICC line trial today 09/18/2024 SKIN Decubitus ulcer high risk Completely bed bound at home. Others History of Breast cancer- outpatient follow up IV access Central line: right sided IJV: double lumen 09/10/2024; discontinued 09/12/2024 Midline: right upper arm 09/12/2024 PICC LINE: 09/19/2024 Diet: Clinimix, will advance to TPN today 09/20/2024 Morphine 2mg q1hr Ativan: 2mg q1hr Drips: Levophed RESUME 09/13/2024 due to hypotension; Held 09/15/[address] 09/10/2024 DVT prophylaxis: already on Lovenox prophylactic, low hgb GI prophylaxis: Protonix Diet: Jevity, stopped 09/15/2024 Disposition: ICU status Goal of care: Family wants hospice with [facility]; Code is modified code ( Chemical code) Critical care time 30 minutes, Advance care planning patient, daughter and Plan discussed with Dr. Prieto Plan discussed with: Patient, Spouse, Other My Orders My Orders Orders - [address] RESIDENT Procedure Category Date Status Time Hydralazine Injection PHA 09/19/24 In Process (Apresoline Inject 19:00 Abg W/ Co-Ox RT 09/20/24 Logged 06:00 Enoxaparin Sodium PHA 09/21/24 In Process (Lovenox) 10:00 Tpn Per Pharmacy PHA 09/20/24 Logged 16:15 Acetylcysteine PHA 09/20/24 Verified Inhalation 10% 18:00 Furosemide Injection PHA 09/20/24 Verified (Lasix Injection) 18:00 Dietary Evaluation Review Comments: Cardiac Diet, iron supplementation. Follow up with nephrology consult Expected Outcomes/Goals: Gradual wt loss, improved nutrition related lab values. Date of Service: Sep 20, 2024 Billing Provider: NICK PRIETO MD Common Visit Codes: NOT BILLABLE [address] RESIDENT Sep 20, 2024 16:20 NICK PRIETO MD Sep 22, 2024 14:51
[2024-09-20 17:04] LABS: Basophils # (auto) 0 10 ^3/uL (0-0.2); Eosinophils # (auto) 0 10 ^3/uL (0-0.8); Hemoglobin 7.2 g/dL (12.2-16.2); Lymphocytes # (auto) 0.4 10 ^3/uL (0.4-5.4); Monocytes # (auto) 0.4 10 ^3/uL (0-1.3)
[2024-09-20 17:05] LABS: Basophils % (auto) 0.1 % (0.0-2.0); Hematocrit 25.1 % (36.0-46.0); Lymphocytes % (auto) 2.1 % (10.0-50.0); Mean Corpuscular Hemoglobin 32.1 pg (28.0-32.0); Mean Corpuscular Hgb Conc. 28.8 g/dL (32.0-36.0); Mean Corpuscular Volume 111.3 fL (80.0-100.0); Monocytes % (auto) 2.1 % (0.0-12.0); Neutrophils # (auto) 17.2 10 ^3/uL (1.6-8.6); Neutrophils % (auto) 95.7 % (37.0-80.0); Nucleated Red Blood Cells % 0.1 %; Platelet Count (auto) 214 10^3/uL (140-450); Red Blood Cells 2.25 10^6/uL (4.0-5.20); Red Cell Distribution Width 17.9 % (11.8-14.3); White Blood Cell 17.9 10^3/uL (4.4-10.8)
--- NOTE | 2024-09-20 17:41 | DVH ---
EXAM: XY CHEST XRAY 1 VIEW TECHNIQUE: Single frontal chest radiograph CLINICAL HISTORY: pneumonia COMPARISON: XY CHEST PORTABLE on DOS: 09/19/24, XY CHEST PORTABLE on DOS: 09/19/24, XY CHEST PORTABLE o n DOS: 09/18/24 Findings/Impression: Frontal chest radiograph demonstrates no acute osseous or superficial soft tissue abnormalities. Left chest wall dual-chamber pacemaker. Enteric tube is overlying the plane of the stomach. The trachea is midline. The cardiac silhouette and mediastinum are within normal limits. [id number] left pleural effusion and/or atelectasis, worse from prior. A superimposed infectio us process is not excluded. Hazy medial right lower lobe airspace opacity, worse from prior. No pneumothorax.
[2024-09-20] MEDS: ACETYLCYSTEINE 10 %(100MG/ML) SOL 4ML NEB SCH (17:51)
[2024-09-20] MEDS: FUROSEMIDE 20 MG/2 ML VIAL IV SCH (18:16)
[2024-09-20] MEDS ORDERED: MORPHINE SULFATE INJ 2 MG/ml SYRG IV PRN (19:15)
[2024-09-20] MEDS: MORPHINE SULFATE INJ 2 MG/ml SYRG IV PRN (19:52)
[2024-09-21] VITALS (114 sets, daily range): BP systolic 55–188; BP diastolic 10–117; PULSE 69–161; RESP 10–30; TEMP 97.9–98.7; O2SAT 70–100
[2024-09-21 04:13] LABS: Alkaline Phosphatase 100 U/L (46-116); Anion Gap 13 (5-15); BUN/Creatinine Ratio 53.2 (10.0-20.0); Carbon Dioxide 24 mmol/L (20-31)
[2024-09-21 04:16] LABS: Alanine Aminotransferase 69 U/L (7-40); Albumin 2.9 g/dL (3.2-4.8); Aspartate Aminotransferase 87 U/L (<34); Bilirubin, Total 0.3 mg/dL (0.2-1.0); Blood Urea Nitrogen 42 mg/dL (9-23); Calcium 8.1 mg/dL (8.7-10.4); Chloride 113 mmol/L (98-107); Glucose 245 mg/dL (74-106); Phosphorus 1.5 mg/dL (2.4-5.1); Potassium 3.1 mmol/L (3.5-5.1); Sodium 150 mmol/L (136-145); Total Protein 5.2 g/dL (5.7-8.2)
[2024-09-21 04:34] LABS: Triglycerides 124 mg/dL (< 150)
--- NOTE | 2024-09-21 05:48 | DVH ---
Exam: US US GUIDED VASCULAR ACCESS Clinical History: PICC LINE INSERTION Comparison: None Technique: Targeted sonographic evaluation of the arm vein was obtained utilizing grayscale and color Doppler im aging. Findings/Impression: Sonographic assistance for PICC line placement.
[2024-09-21 08:27] LABS: Base Excess -1.5 mmol/L (-2.0-3.0)
[2024-09-21] MEDS ORDERED: POTASSIUM CHLORIDE 60 MEQ, LIDOCAINE 1% (LOCAL ANESTH.) 6 ML in SODIUM CHL 0.9% 500 ML IV ONE (08:45)
[2024-09-21 09:09] LABS: Basophils # (auto) 0 10 ^3/uL (0-0.2); Eosinophils # (auto) 0 10 ^3/uL (0-0.8); Hemoglobin 7.7 g/dL (12.2-16.2); Monocytes # (auto) 0.5 10 ^3/uL (0-1.3); Nucleated Red Blood Cells % 0.1 %; White Blood Cell 18.3 10^3/uL (4.4-10.8)
[2024-09-21 09:10] LABS: Basophils % (auto) 0.1 % (0.0-2.0); Hematocrit 24.5 % (36.0-46.0); Lymphocytes # (auto) 0.7 10 ^3/uL (0.4-5.4); Lymphocytes % (auto) 3.7 % (10.0-50.0); Mean Corpuscular Hemoglobin 31.3 pg (28.0-32.0); Mean Corpuscular Hgb Conc. 31.5 g/dL (32.0-36.0); Mean Corpuscular Volume 99.5 fL (80.0-100.0); Monocytes % (auto) 2.9 % (0.0-12.0); Neutrophils % (auto) 93.3 % (37.0-80.0); Platelet Count (auto) 213 10^3/uL (140-450); Red Blood Cells 2.46 10^6/uL (4.0-5.20); Red Cell Distribution Width 17.2 % (11.8-14.3)
[2024-09-21] MEDS: POTASSIUM PHOSPHATE 22 MEQ in SODIUM CHL 0.9% 100 ML IV ONE ×2 (10:03→17:04)
[2024-09-21] MEDS: ENOXAPARIN SOD 40 MG/0.4 ML SYRINGE SC SCH (10:06)
[2024-09-21] MEDS: LORazepam 2MG/ML-1ML VIAL IV PRN (10:38)
--- NOTE | 2024-09-21 10:50 | DVHPN2 ---
Progress Note - Dictate Date Seen: Sep 21, 2024 Has the PT tested + for MRSA If YES, has PT been informed?: No Medical Necessity Reason Pt with a Central, PICC or Fol: No (mid line) The following are medically ne: PICC Line, Delgado Catheter Subjective Ms. Posada is a 73 years old right-handed female with a history of hypertension, atrial fibrillation, breast cancer, kidney stone, the patient was came to the hospital on 09/11/2024 with a chief company of shortness breath, general weakness, and the patient was found to have pneumonia, respiratory failure, hypotension, and the patient was admitted to ICU, the patient was also has other problems I have seen and examined the patient, and other family member in the room, I have talked to her nurse. She is on BiPAP, awake, very weak, she only open her eyes and looks at , she does not move her extremities, Talked to Dr. Loomis Blood culture, 09/11/2024: WBC/HB/PLT/MCV, 09/11/2024: 8.5/9.9/225/99.5 PTT/INR/ABG, 09/11/2024: 13.5/1.3/45.9 HCO3, 09/11/2024:19 BUN/CR, 09/11/2024: 30/1.16 HGB A1c, 07/12/2019 5:4.5 Liver function tests, 09/11/2024: Unremarkable TG/HDL/LDL/HDL, 07/14/2024: 89/110/59/26 Vitamin B12, 07/2019 5:1114 Folic acid, 07/2024: 0.9 TSH, 09/11/2024: 15.09 Echocardiogram, 09/14/2024: Technically difficult study. Difficult acoustic windows. Patient is uncooperative. From the limited views obtained there appears to be an underlying sinus tachycardia. There is navm-ey-ydwksboz mitral annular calcification however good excursion of the mitral leaflets. The aortic tricuspid and pulmonic or within normal limits. Left ventricular function is preserved at 60% with normal RV function. Dopplers unremarkable. No pericardial effusion masses or vegetations. Carotid Doppler, 06/30/24: No hemodynamically significant stenosis noted in the right carotid system. No hemodynamically significant stenosis noted in the left carotid system Carotid Doppler, 09/12/2024: No hemodynamically significant stenosis noted in the left carotid system. Chest x-ray, 09/11/2024: 1. Appropriate position of the support lines and tubes. 2. Bilateral pleural effusions. Chest X-ry, 09/18/2024: Cardiomegaly with pulmonary congestion and edema. Superimposed pneumonia cannot be excluded. Check X-ray, 09/19/2024: Cardiomegaly with mild congestion. MRI head, 09/13/2024: 1. Limited stroke protocol. Limited by motion.2. No evidence of acute infarction, intracranial hemorrhage, mass effect or hydrocephalus. 3. Old right MCA infarct. Consider follow-up exam when patient is able to tolerate vital signs Vital Sign Date Time Temp Pulse Resp B/P (MAP) Pulse Ox O2 Delivery O2 Flow Rate FiO2 09/21/24 10:39 78 21 202/52 09/21/24 10:15 98 Nasal BiPAP Mask 35 09/21/24 04:00 98.3 98.3 Total Intake and Output 09/20/24 09/20/24 09/21/24 15:00 23:00 07:00 Intake Total 689.946 ml 645.28 ml 586.28 ml Output Total 500 ml 850 ml Balance 689.946 ml 145.28 ml -263.72 ml medications Current Medications Medications Dose Ordered Sig/Miranda Route Start Time Stop Time Status Last Admin Dose Admin Nitroglycerin 0.4 mg Q5MINP PRN SL 09/11/24 00:30 Pantoprazole Sodium 40 mg DAILY IV 09/11/24 10:00 09/21/24 10:04 40 MG Atorvastatin Calcium 40 mg HS NG 09/11/24 01:30 09/16/24 21:08 40 MG Levothyroxine Sodium 100 mcg DAILY IV 09/12/24 10:00 09/21/24 10:05 100 MCG Lorazepam 1 mg ONCE PRN IV 09/11/24 22:00 Ipratropium [place] 0.5 mg Q6HWA PRN NEB 09/13/24 03:00 09/20/24 15:08 0.5 MG Levalbuterol HCl 0.625 mg Q6HWA PRN NEB 09/13/24 03:15 09/20/24 15:07 0.625 MG Piperacillin Sod/ Tazobactam Sod 100 ml @ 25 mls/hr Q8HR IV 09/14/24 06:30 09/21/24 06:03 25 MLS/HR Hydrocortisone Sodium Succinate 50 mg Q6HR IV 09/14/24 12:00 09/21/24 06:03 50 MG Trazodone HCl 50 mg HS PO 09/15/24 23:45 09/14/24 23:56 50 MG Acetaminophen 650 mg Q6HP PRN GT 09/16/24 10:00 09/16/24 10:47 650 MG Levalbuterol HCl 0.625 mg Q6HR NEB 09/16/24 12:00 09/21/24 06:43 0.625 MG Ipratropium [place] 0.5 mg Q6HR NEB 09/16/24 12:00 09/21/24 06:43 0.5 MG Enteral Nutritional Formula 1,000 ml 40ML/HR GT 09/16/24 11:00 Phenylephrine HCl 250 ml @ 30 mls/hr Q8H20M IV 09/17/24 00:45 09/17/24 01:06 30 MLS/HR Diagnostic Test (Pha) 1 strip Q6HR 09/20/24 00:00 09/21/24 06:03 1 STRIP Insulin Human Regular FOLLOW SLIDING SCALE Q6HR SC 09/20/24 00:00 09/21/24 06:09 2 UNITS Dextrose 50 ml UD IV 09/20/24 00:00 Amino Acids/ Electrolytes/ Dextrose 1,000 ml @ 41 mls/hr DAILY@2200 IV 09/19/24 22:00 09/20/24 22:28 41 MLS/HR Sodium Chloride 10 ml QSHIFT@10,22 IV 09/19/24 22:00 09/21/24 10:05 10 ML Hydralazine HCl 10 mg Q6HP PRN IV 09/19/24 19:00 09/19/24 22:53 10 MG Enoxaparin Sodium 40 mg DAILY SC 09/21/24 10:00 09/21/24 10:06 40 MG Amino Acids 0 ml @ 0 mls/hr PER PHARMACY IV 09/20/24 16:15 Acetylcysteine 100 mg Q6HR NEB 09/20/24 18:00 09/21/24 06:43 100 MG Furosemide 20 mg BIDD IV 09/20/24 18:00 09/21/24 06:03 20 MG Lorazepam 2 mg Q1H PRN IV 09/20/24 19:30 09/21/24 10:38 2 MG Morphine Sulfate 2 mg Q1HP PRN IV 09/20/24 19:30 09/21/24 10:39 2 MG objective General: the patient is well developed and nourished. No acute distress. MENTAL STATUS: Subjective SPEECH, LANGUAGE, HIGHER CORTICAL FUNCTION: Subjective CRANIAL NERVES: Pupils are equal, round and reactive. EOMs full and conjugate. Facial sensation intact in all three divisions bilaterally. Mandibular strength intact. Facial muscles symmetrical and strength intact. SENSATION: Sensation to touch and pinprick is finel. MOTOR: Normal tone in the upper and lower extremity. Normal muscle bulk. No fasciculations. No abnormal movements or posturing. She can hardly move the extremities REFLEXES: Deep tendon reflexes normal and symmetrical. No pathological reflexes. CEREBELLAR/COORDINATION: Deferred GAIT/STATION: deferred. laboratory and microbiology Laboratory Tests 09/21/24 03:00 Test 09/21/24 03:00 Range/Units Serum Glucose 245 H 74-106 mg/dL Problem List Acute respiratory failure secondary to pneumonia Pneumonia/respiratory failure ? Aspiration Right sided weakness in 07/2024, rule out acute stroke Chronic stroke with residual left-sided hemiparesis Atrial fibrillation Coagulopathy Status post PICC line Anemia Assessment/Plan Monitoring Supportive treatment Follow-up lab ICU care Stabilize vitals Respiratory support/BiPAP Oxygen Lovenox 40 mg subQ daily for now Lipitor 40 mg daily GI prophylaxis Feeding tube once patient is more stabilized More recommendation per clinical course This medical document was created using an electronic medical record system with [employer] dictation system. Although this document has been carefully reviewed, there may still be some phonetic and typographical errors. These areas are purely typographical due to imperfections of the software programs, and do not reflect any compromise in the patient's medical care. Prognosis poor Dietary Evaluation Review Comments: Cardiac Diet, iron supplementation. Follow up with nephrology consult Expected Outcomes/Goals: Gradual wt loss, improved nutrition related lab values. Plan discussed with: Spouse, Other MARY RAMIREZ MD Sep 21, 2024 10:49
--- NOTE | 2024-09-21 13:23 | DVH ---
CHEST RADIOGRAPH Indication: DESATURATION Technique: Single frontal view of the chest was obtained COMPARISON: 09/20/2024 FINDINGS: Nasogastric tube projects towards stomach. Left chest dual lead cardiac pacer device. Lef t arm PICC line with tip not well visualized. Cholecystectomy. The cardiac silhouette is enlarged. The lungs demonstrate bilateral patchy airspace opacities, left-g [id number], similar to prior. The pulmonary vasculature is prominent. Moderate left pleural ef fusion.. There is no pneumothorax. IMPRESSION: As above
--- NOTE | 2024-09-21 16:03 | DVHPN2 ---
Progress Note - Dictate Date Seen: Sep 21, 2024 Has the PT tested + for MRSA If YES, has PT been informed?: No Medical Necessity Reason Pt with a Central, PICC or Fol: No (mid line) The following are medically ne: PICC Line, Delgado Catheter Subjective Patient is seen and examined we will family at bedside. The patient remains on BiPAP and appears to be requiring more oxygen supplement today. CXR shows pulm vasc congestion. vital signs Vital Sign Date Time Temp Pulse Resp B/P (MAP) Pulse Ox O2 Delivery O2 Flow Rate FiO2 09/21/24 15:30 70 21 143/38 (73) 100 09/21/24 14:00 Bi-Pap+ 35 35 09/21/24 12:00 98.1 98.1 Total Intake and Output 09/20/24 09/20/24 09/21/24 15:00 23:00 07:00 Intake Total 689.946 ml 645.28 ml 586.28 ml Output Total 500 ml 850 ml Balance 689.946 ml 145.28 ml -263.72 ml medications Current Medications Medications Dose Ordered Sig/Miranda Route Start Time Stop Time Status Last Admin Dose Admin Nitroglycerin 0.4 mg Q5MINP PRN SL 09/11/24 00:30 Pantoprazole Sodium 40 mg DAILY IV 09/11/24 10:00 09/21/24 10:04 40 MG Atorvastatin Calcium 40 mg HS NG 09/11/24 01:30 09/16/24 21:08 40 MG Levothyroxine Sodium 100 mcg DAILY IV 09/12/24 10:00 09/21/24 10:05 100 MCG Lorazepam 1 mg ONCE PRN IV 09/11/24 22:00 Ipratropium [place] 0.5 mg Q6HWA PRN NEB 09/13/24 03:00 09/20/24 15:08 0.5 MG Levalbuterol HCl 0.625 mg Q6HWA PRN NEB 09/13/24 03:15 09/20/24 15:07 0.625 MG Piperacillin Sod/ Tazobactam Sod 100 ml @ 25 mls/hr Q8HR IV 09/14/24 06:30 09/21/24 15:08 25 MLS/HR Hydrocortisone Sodium Succinate 50 mg Q6HR IV 09/14/24 12:00 09/21/24 12:45 50 MG Trazodone HCl 50 mg HS PO 09/15/24 23:45 09/14/24 23:56 50 MG Acetaminophen 650 mg Q6HP PRN GT 09/16/24 10:00 09/16/24 10:47 650 MG Levalbuterol HCl 0.625 mg Q6HR NEB 09/16/24 12:00 09/21/24 12:03 0.625 MG Ipratropium [place] 0.5 mg Q6HR NEB 09/16/24 12:00 09/21/24 12:03 0.5 MG Enteral Nutritional Formula 1,000 ml 40ML/HR GT 09/16/24 11:00 Phenylephrine HCl 250 ml @ 30 mls/hr Q8H20M IV 09/17/24 00:45 09/17/24 01:06 30 MLS/HR Diagnostic Test (Pha) 1 strip Q6HR 09/20/24 00:00 09/21/24 12:44 1 STRIP Insulin Human Regular FOLLOW SLIDING SCALE Q6HR SC 09/20/24 00:00 09/21/24 12:43 2 UNITS Dextrose 50 ml UD IV 09/20/24 00:00 Amino Acids/ Electrolytes/ Dextrose 1,000 ml @ 41 mls/hr DAILY@2200 IV 09/19/24 22:00 09/21/24 21:59 09/20/24 22:28 41 MLS/HR Sodium Chloride 10 ml QSHIFT@10,22 IV 09/19/24 22:00 09/21/24 10:05 10 ML Hydralazine HCl 10 mg Q6HP PRN IV 09/19/24 19:00 09/19/24 22:53 10 MG Enoxaparin Sodium 40 mg DAILY SC 09/21/24 10:00 09/21/24 10:06 40 MG Amino Acids 0 ml @ 0 mls/hr PER PHARMACY IV 09/20/24 16:15 Acetylcysteine 100 mg Q6HR NEB 09/20/24 18:00 09/21/24 12:03 100 MG Furosemide 20 mg BIDD IV 09/20/24 18:00 09/21/24 06:03 20 MG Lorazepam 2 mg Q1H PRN IV 09/20/24 19:30 09/21/24 10:38 2 MG Morphine Sulfate 2 mg Q1HP PRN IV 09/20/24 19:30 09/21/24 15:06 2 MG Fat Emulsion Intravenous 50 ml/ Potassium Acetate 20 meq/Potassium Phosphate 22 meq/ Magnesium Sulfate 8 meq/ Multivitamins 10 ml/Chromium/ Copper/Manganese/ Zinc 1 ml/Amino Acids/Dextrose 878 ml @ 36 mls/hr [id number] IV 09/21/24 22:00 09/22/24 21:59 objective Somnelent on BiPAP laboratory and microbiology Laboratory Tests 09/21/24 03:00 Test 09/21/24 03:00 Range/Units Serum Glucose 245 H 74-106 mg/dL Assessment/Plan 1) Malnourishment and feeding difficulty. Pt's family is requesting a PEG tube placement for nutrition support prior to discharge to hospice care, which is not an unreasonable request. Barriers to PEG tube placement include resp distress. 2) Resp distress- Volume overload? and PNA Chest x-ray from today shows: The cardiac silhouette is enlarged. The lungs demonstrate bilateral patchy airspace opacities, [id number], similar to prior. The pulmonary vasculature is prominent. Moderate left pleural effusion.. There is no pneumothorax. 3) h/o With spoke to Dr. Bena, ICU doctor, today. We will give the patient one additional dose of Lasix along with albumin to see if she would failed to diurese small. Dr. Bean reports the patient's status is grim and likely will not improve. I did relay message to the patient's family Rec: We will give Lasix 40 mg IV x1 along with albumin supplement TPN orders pending for tonight Continue Clinimix PPN at this time. Continue antibiotics We will re-assess for optimal time to do PEG tube if possible Dietary Evaluation Review Comments: Cardiac Diet, iron supplementation. Follow up with nephrology consult Expected Outcomes/Goals: Gradual wt loss, improved nutrition related lab values. Plan discussed with: Spouse PINKY CAICEDO MD Sep 21, 2024 16:03
[2024-09-21 16:41] LABS: Potassium 2.9 mmol/L (3.5-5.1)
[2024-09-21] MEDS: FUROSEMIDE 40 MG/4 ML VIAL IV ONE (16:50)
--- NOTE | 2024-09-21 18:16 | DVHPNRES ---
Progress Note Date Seen: Sep 21, 2024 Resident Creating Document: [address] RESIDENT Has the PT tested + for MRSA If YES, has PT been informed?: No Medical Necessity Reason Pt with a Central, PICC or Fol: No (mid line) The following are medically ne: PICC Line, Delgado Catheter Medical Necessity Reason Patient is seen and examined today at the bedside with family family present. Patient does not seem to be getting any better. Her oxygen demand today has increased compared to prior days. And her blood pressure was also in the 200s systolic. The nurses gave morphine and Ativan. When asked questions about pain, patient responded by nodding her head mainly on her right side. I adjusted pillow under her right. She was also followed by the neurologist and the GI doctor. The family wanted patient to get a PEG before going on hopice. Per the GI doctor, family's demand is unreasonable given that the patient he has seen respiratory distress and also on BiPAP. Subjective Review of Systems Constitutional: mild distress on BIPAP HEENT: Denies headache, ear pain, ear discharges, conjunctivitis, nasal discharge throat pain Cardiovascular: Denies chest pain, palpitation, orthopnea, PND, or pedal edema Respiratory: coarse, on bipap GI: Denies abdominal pain, nausea, vomiting, diarrhea, hematemesis, hematochezia, had bowel movement today : Denies frequency, urgency, hematuria, Endocrine: Denies unintentional weight gain or weight loss, feeling of hot flashes, Lester: low hgb Musculoskeletal: right leg pain Psych: No evidence of depression, chandu, suicidal ideation Objective vital signs Vital Sign Date Time Temp Pulse Resp B/P (MAP) Pulse Ox O2 Delivery O2 Flow Rate FiO2 09/21/24 16:50 135/21 09/21/24 16:40 81 100 Nasal BiPAP Mask 90 09/21/24 16:30 14 09/21/24 16:00 97.9 97.9 Total Intake and Output 09/20/24 09/20/24 09/21/24 15:00 23:00 07:00 Intake Total 689.946 ml 645.28 ml 586.28 ml Output Total 500 ml 850 ml Balance 689.946 ml 145.28 ml -263.72 ml medications Current Medications Medications Dose Ordered Sig/Miranda Route Start Time Stop Time Status Last Admin Dose Admin Nitroglycerin 0.4 mg Q5MINP PRN SL 09/11/24 00:30 Pantoprazole Sodium 40 mg DAILY IV 09/11/24 10:00 09/21/24 10:04 40 MG Atorvastatin Calcium 40 mg HS NG 09/11/24 01:30 09/16/24 21:08 40 MG Levothyroxine Sodium 100 mcg DAILY IV 09/12/24 10:00 09/21/24 10:05 100 MCG Lorazepam 1 mg ONCE PRN IV 09/11/24 22:00 Ipratropium [place] 0.5 mg Q6HWA PRN NEB 09/13/24 03:00 09/21/24 15:56 0.5 MG Levalbuterol HCl 0.625 mg Q6HWA PRN NEB 09/13/24 03:15 09/21/24 15:56 0.625 MG Piperacillin Sod/ Tazobactam Sod 100 ml @ 25 mls/hr Q8HR IV 09/14/24 06:30 09/21/24 15:08 25 MLS/HR Hydrocortisone Sodium Succinate 50 mg Q6HR IV 09/14/24 12:00 09/21/24 12:45 50 MG Trazodone HCl 50 mg HS PO 09/15/24 23:45 09/14/24 23:56 50 MG Acetaminophen 650 mg Q6HP PRN GT 09/16/24 10:00 09/16/24 10:47 650 MG Levalbuterol HCl 0.625 mg Q6HR NEB 09/16/24 12:00 09/21/24 12:03 0.625 MG Ipratropium [place] 0.5 mg Q6HR NEB 09/16/24 12:00 09/21/24 12:03 0.5 MG Enteral Nutritional Formula 1,000 ml 40ML/HR GT 09/16/24 11:00 Phenylephrine HCl 250 ml @ 30 mls/hr Q8H20M IV 09/17/24 00:45 09/17/24 01:06 30 MLS/HR Diagnostic Test (Pha) 1 strip Q6HR 09/20/24 00:00 09/21/24 12:44 1 STRIP Insulin Human Regular FOLLOW SLIDING SCALE Q6HR SC 09/20/24 00:00 09/21/24 12:43 2 UNITS Dextrose 50 ml UD IV 09/20/24 00:00 Amino Acids/ Electrolytes/ Dextrose 1,000 ml @ 41 mls/hr DAILY@2200 IV 09/19/24 22:00 09/21/24 21:59 09/20/24 22:28 41 MLS/HR Sodium Chloride 10 ml QSHIFT@10,22 IV 09/19/24 22:00 09/21/24 10:05 10 ML Hydralazine HCl 10 mg Q6HP PRN IV 09/19/24 19:00 09/19/24 22:53 10 MG Enoxaparin Sodium 40 mg DAILY SC 09/21/24 10:00 09/21/24 10:06 40 MG Amino Acids 0 ml @ 0 mls/hr PER PHARMACY IV 09/20/24 16:15 Acetylcysteine 100 mg Q6HR NEB 09/20/24 18:00 09/21/24 12:03 100 MG Furosemide 20 mg BIDD IV 09/20/24 18:00 09/21/24 06:03 20 MG Lorazepam 2 mg Q1H PRN IV 09/20/24 19:30 09/21/24 10:38 2 MG Morphine Sulfate 2 mg Q1HP PRN IV 09/20/24 19:30 09/21/24 15:06 2 MG Fat Emulsion Intravenous 50 ml/ Potassium Acetate 20 meq/Potassium Phosphate 22 meq/ Magnesium Sulfate 8 meq/ Multivitamins 10 ml/Chromium/ Copper/Manganese/ Zinc 1 ml/Amino Acids/Dextrose 878 ml @ 36 mls/hr [id number] IV 09/21/24 22:00 09/22/24 21:59 Albumin Human 50 ml @ 100 mls/hr Q6HR IV 09/21/24 18:00 09/22/24 16:00 Examination General Appearance:awake but in distress, response to questions by nodding HEENT: Atraumatic, Respiratory: coarse breath sound, more rhonchi on R, same as before Cardiovascular: tachycardia, Normal S1, Normal S2, No murmurs, no chest wall tenderness Abdominal: NO distention, no tenderness, bowel sounds present, no scars noted Extremities: left sided hemiplegic, right sided hemiparesis Skin: Has midline on the right arm Neuro: Nodding to speech Psych/Mental Status: stable laboratory and microbiology Laboratory Tests 09/21/24 16:10 09/21/24 03:00 Test 09/21/24 03:00 Range/Units Serum Glucose 245 H 74-106 mg/dL Microbiology Date/Time Source Procedure Growth Status 09/14/24 01:41 Blood Blood Culture - Final NO GROWTH AFTER 5 DAYS OF INCUBATION. Complete 09/11/24 00:41 Nose MRSA Screen - Final Complete 09/11/24 00:41 Voided Urine Urine Culture - Final Yeast, not Viridiana albicans Complete 09/11/24 00:31 Sputum Gram Stain - Final Complete 09/11/24 00:31 Respiratory Culture - Final Staphylococcus aureus Complete Problem List/Assessment/Plan Problem List/Assessment/Plan Assessment and plan NEUROLOGY: Right sided hemiparesis likely repeated stroke leading to right hemiparesis with speech difficulty. ? Recurrent strokes despite on anticoagulation History of massive CVA with left sided hemiplegic Insomnia on as needed trazodone CARDIOVASCULAR: Paroxysmal atrial fibrillation with secondary hypercoagulable state Status post dual-chamber pacemaker Abott MRI friendly a-sensed v-paced Hypertensive heart disease, LVH: LVEF 65%. Mild LVH mild LV diastolic dysfunction Type II demand mediated NSTEMI, telemetry with conservative management Carotid stenosis ruled out: Bilateral carotid duplex from 06/30/2024 revealed no hemodynamically significant stenosis noted in the bilateral carotid system. Wide QRS, low voltage RBBB Lower risk of significant coronary artery disease: Nuclear stress test from 05/24/2023 revealed ECG findings negative for ischemia and nuclear findings negative for ischemia CT Chest 09/14: Mild cardiomegaly with coronary artery disease. [id number] atherosclerotic vascular disease. on Aspirin, eliquis Obtained Echo result pending Amiodarine drip since 09/15 RESPIRATORY: Aspiration pneumonia likely due to bulbar function B/l pneumonia gram +ve / gram -ve / atypicals Acute hypoxic respiratory failure on 6 L oxygen Pleural effusion ARDS due to possible aspiration pneumonitis Recurrent desaturation BIPAP continued ( 09/17/2025) Lung very coarse; give acetylcysteine 10% q6hrs - CT chest 09/14: Consolidations with air bronchograms in the bilateral lower lobes with evidence of mucus plugging, suspicious for aspiration. Patchy ground glass opacities in the upper lobes bilaterally, likely infectious or inflammatory in nature. X-ray( 09/14/2024) : Interval worsening of right upper lobe pneumonia. Stop IV fluid Continue Zosyn 4L oxygen NC Sputum culture: No growth GASTROINTESTINAL Failed swallow evaluation GERD with gastritis Protonix TPN should start today 09/21/2024 Moderate Malnutrition Plan GI consult for PEG; Per GI, it not feasible given patient's intermittent respiratory distress Lactulose discontinued METABOLIC Dyslipidemia Severe hypokalemia resolved obesity grade 1 replenish electrolytes GENITOURINARY Acute complicated cystitis, Yeast positive, No albicans Chronic hypothyroidism CAROLYN due to VMN ( baseline 0.87) fluconazoles: Stopped HEMATOLOGY Chronic macrocytic + iron deficient mixed anemia Monitor H& H closely and transfuse if hgb< 7 Coagulopathy- improved Lovenox: prophylactic dose ENDOCRINE Hypothyroidism acute on chronic likely due to medication indiscretion Give levothyroxine 100mcg INFECTIOUS DISEASE Severe sepsis with Septic shock Likely sepsis in the setting of aspiration pneumonia MRSA screen negative Continue zosyn; ( fluconazole , stopped 09/20/2024) Levophed -resumed 09/13/2024, Stopped being on it intermittently, prn) PICC line for IV antibiotics; unable to obtain 09/14/2024 PICC line trial today 09/18/2024 SKIN Decubitus ulcer high risk Completely bed bound at home. Others History of Breast cancer- outpatient follow up IV access Central line: right sided IJV: double lumen 09/10/2024; discontinued 09/12/2024 Midline: right upper arm 09/12/2024 PICC LINE: 09/19/2024 Diet: Clinimix, will advance to TPN today 09/20/2024 Morphine 2mg q1hr Ativan: 2mg q1hr Drips: Levophed RESUME 09/13/2024 due to hypotension; Held 09/15/[address] 09/10/2024 DVT prophylaxis: already on Lovenox prophylactic, low hgb GI prophylaxis: Protonix Diet: Jevity, stopped 09/15/2024 Disposition: ICU status Goal of care: Family wants hospice with [facility]; Code is modified code ( Chemical code) Critical care time 30 minutes, Advance care planning patient, daughter and Plan discussed with Dr. Prieto Plan discussed with: Patient, Spouse, Son My Orders My Orders Orders - [address] Procedure Category Date Status Time Lorazepam 2mg/Ml Inj PHA 09/20/24 In Process (Ativan Inj) 19:30 Morphine Sulfate PHA 09/20/24 In Process Injection 19:30 Amino Acid PHA 09/21/24 In Process Infusion... W/Fat 22:00 Comprehensive LAB 09/22/24 Verified Metabolic Panel 04:00 Phosphorus LAB 09/22/24 Verified 04:00 Magnesium LAB 09/22/24 Verified 04:00 Tpn Per Pharmacy [facility] 09/21/24 In Process 22:00 Potassium Phosphate PHA 09/21/24 In Process 15:00 Dietary Evaluation Review Comments: Cardiac Diet, iron supplementation. Follow up with nephrology consult Expected Outcomes/Goals: Gradual wt loss, improved nutrition related lab values. Date of Service: Sep 21, 2024 Billing Provider: NICK PRIETO MD Common Visit Codes: NOT BILLABLE [address] RESIDENT Sep 21, 2024 18:16 NICK PRIETO MD Sep 22, 2024 14:52
[2024-09-21] MEDS: ALBUMIN 25% 50 ML IV SCH (18:24)
[2024-09-21] MEDS: TPN PER PHARMACY IV NR (21:54)
[2024-09-22] VITALS (109 sets, daily range): BP systolic 91–187; BP diastolic 16–98; PULSE 69–99; RESP 10–28; TEMP 98–98.5; O2SAT 86–100
[2024-09-22 00:38] LABS: Potassium 2.6 mmol/L (3.5-5.1)
[2024-09-22 00:46] LABS: Phosphorus 3.8 mg/dL (2.4-5.1)
[2024-09-22 03:37] LABS: Basophils # (auto) 0 10 ^3/uL (0-0.2); Eosinophils # (auto) 0 10 ^3/uL (0-0.8); Lymphocytes # (auto) 0.5 10 ^3/uL (0.4-5.4); Monocytes # (auto) 0.5 10 ^3/uL (0-1.3)
[2024-09-22 03:42] LABS: Hematocrit 20.4 % (36.0-46.0); Mean Corpuscular Hemoglobin 32.1 pg (28.0-32.0); Mean Corpuscular Hgb Conc. 32.8 g/dL (32.0-36.0); Mean Corpuscular Volume 97.8 fL (80.0-100.0); Neutrophils # (auto) 14.8 10 ^3/uL (1.6-8.6); Nucleated Red Blood Cells % 0.1 %; Platelet Count (auto) 159 10^3/uL (140-450); Red Blood Cells 2.09 10^6/uL (4.0-5.20); White Blood Cell 15.8 10^3/uL (4.4-10.8)
[2024-09-22 03:45] LABS: Hemoglobin 6.7 g/dL (12.2-16.2)
[2024-09-22 03:56] LABS: Alkaline Phosphatase 85 U/L (46-116); Anion Gap 13 (5-15); BUN/Creatinine Ratio 61.1 (10.0-20.0); Carbon Dioxide 26 mmol/L (20-31); Magnesium 1.9 mg/dL (1.6-2.6)
[2024-09-22 03:57] LABS: Phosphorus 3.6 mg/dL (2.4-5.1)
[2024-09-22 03:58] LABS: Bilirubin, Total 0.2 mg/dL (0.2-1.0)
[2024-09-22 04:01] LABS: Alanine Aminotransferase 65 U/L (7-40); Aspartate Aminotransferase 75 U/L (<34); Blood Urea Nitrogen 44 mg/dL (9-23); Calcium 7.8 mg/dL (8.7-10.4); Chloride 112 mmol/L (98-107); Glucose 242 mg/dL (74-106); Sodium 151 mmol/L (136-145); Total Protein 4.9 g/dL (5.7-8.2)
[2024-09-22 04:02] LABS: Potassium 2.5 mmol/L (3.5-5.1)
[2024-09-22] MEDS: POTASSIUM CHL 20MEQ/100ML 100 ML IV SCH (04:28)
--- NOTE | 2024-09-22 05:13 | DVH ---
EXAM: XR Chest, 1 View CLINICAL INDICATION: Pain TECHNIQUE: Frontal view of the chest. COMPARISON: XR Chest dated 09/21/2024 FINDINGS: LUNGS AND PLEURAL SPACES: Left basilar atelectasis or pneumonia. HEART: Cardiomegaly with mild congestion. MEDIASTINUM: Unremarkable. Normal mediastinal contour. BONES/JOINTS: Unremarkable. No acute fracture. TUBES, LINES AND DEVICES: The endotracheal tube (ETT) is in satisfactory position. Enteric tube tip in the stomach. Left-sided cardiac pacemaker. IMPRESSION: 1. Left basilar atelectasis or pneumonia. 2. Cardiomegaly with mild congestion.
[2024-09-22 10:57] LABS: Base Excess 1.1 mmol/L (-2.0-3.0)
[2024-09-22 11:07] LABS: Hematocrit 25.2 % (36.0-46.0); Hemoglobin 8.3 g/dL (12.2-16.2)
[2024-09-22] MEDS: PANTOPRAZOLE 40 MG/10 ML VIAL INJ IV SCH (11:23)
[2024-09-22] MEDS: ACETAMINOPHEN 650 MG RECT SUPP PR PRN (11:24)
--- NOTE | 2024-09-22 14:24 | DVHPNRES ---
Progress Note Date Seen: Sep 22, 2024 Resident Creating Document: [address] RESIDENT Has the PT tested + for MRSA If YES, has PT been informed?: No Medical Necessity Reason Pt with a Central, PICC or Fol: No (mid line) The following are medically ne: PICC Line, Delgado Catheter Medical Necessity Reason Patient is seen and examined today at bedside. She is continues to remain on BiPAP. Also currently on TPN vitals stable so far both monitoring. CXR showed worsening pnueumonia> This afternoon family agreed to keep patient on only on BiPAP for modified code status Subjective Review of Systems for reveal of system, patient nodes to only pen. Objective vital signs Vital Sign Date Time Temp Pulse Resp B/P (MAP) Pulse Ox O2 Delivery O2 Flow Rate FiO2 09/22/24 13:59 84 107/79 97 Nasal BiPAP Mask 45 09/22/24 12:30 14 09/22/24 12:00 98.1 98.1 Total Intake and Output 09/21/24 09/21/24 09/22/24 15:00 23:00 07:00 Intake Total 641.28 ml 730.03 ml 696.28 ml Output Total 750 ml 750 ml Balance 641.28 ml -19.97 ml -53.72 ml medications Current Medications Medications Dose Ordered Sig/Miranda Route Start Time Stop Time Status Last Admin Dose Admin Nitroglycerin 0.4 mg Q5MINP PRN SL 09/11/24 00:30 Atorvastatin Calcium 40 mg HS NG 09/11/24 01:30 09/16/24 21:08 40 MG Levothyroxine Sodium 100 mcg DAILY IV 09/12/24 10:00 09/22/24 11:24 100 MCG Ipratropium [place] 0.5 mg Q6HWA PRN NEB 09/13/24 03:00 09/21/24 15:56 0.5 MG Levalbuterol HCl 0.625 mg Q6HWA PRN NEB 09/13/24 03:15 09/21/24 15:56 0.625 MG Piperacillin Sod/ Tazobactam Sod 100 ml @ 25 mls/hr Q8HR IV 09/14/24 06:30 09/22/24 06:04 25 MLS/HR Hydrocortisone Sodium Succinate 50 mg Q6HR IV 09/14/24 12:00 09/22/24 12:15 50 MG Trazodone HCl 50 mg HS PO 09/15/24 23:45 09/14/24 23:56 50 MG Levalbuterol HCl 0.625 mg Q6HR NEB 09/16/24 12:00 09/22/24 12:05 0.625 MG Ipratropium [place] 0.5 mg Q6HR NEB 09/16/24 12:00 09/22/24 12:05 0.5 MG Phenylephrine HCl 250 ml @ 30 mls/hr Q8H20M IV 09/17/24 00:45 09/17/24 01:06 30 MLS/HR Diagnostic Test (Pha) 1 strip Q6HR 09/20/24 00:00 09/22/24 12:16 1 STRIP Insulin Human Regular FOLLOW SLIDING SCALE Q6HR SC 09/20/24 00:00 09/22/24 12:16 2 UNITS Dextrose 50 ml UD IV 09/20/24 00:00 Sodium Chloride 10 ml QSHIFT@10,22 IV 09/19/24 22:00 09/22/24 11:23 10 ML Hydralazine HCl 10 mg Q6HP PRN IV 09/19/24 19:00 09/19/24 22:53 10 MG Enoxaparin Sodium 40 mg DAILY SC 09/21/24 10:00 09/21/24 10:06 40 MG Amino Acids 0 ml @ 0 mls/hr PER PHARMACY IV 09/20/24 16:15 Acetylcysteine 100 mg Q6HR NEB 09/20/24 18:00 09/22/24 12:05 100 MG Furosemide 20 mg BIDD IV 09/20/24 18:00 09/21/24 18:24 20 MG Lorazepam 2 mg Q1H PRN IV 09/20/24 19:30 09/21/24 10:38 2 MG Morphine Sulfate 2 mg Q1HP PRN IV 09/20/24 19:30 09/22/24 10:28 2 MG Fat Emulsion Intravenous 50 ml/ Potassium Acetate 20 meq/Potassium Phosphate 22 meq/ Magnesium Sulfate 8 meq/ Multivitamins 10 ml/Chromium/ Copper/Manganese/ Zinc 1 ml/Amino Acids/Dextrose 878 ml @ 36 mls/hr [id number] IV 09/21/24 22:00 09/22/24 21:59 09/21/24 21:54 36 MLS/HR Albumin Human 50 ml @ 100 mls/hr Q6HR IV 09/21/24 18:00 09/22/24 16:00 09/22/24 12:15 100 MLS/HR Pantoprazole Sodium 40 mg BID IV 09/22/24 10:00 09/22/24 11:23 40 MG Acetaminophen 650 mg Q6HP PRN ME 09/22/24 11:15 09/22/24 11:24 650 MG Fat Emulsion Intravenous 100 ml/Potassium Acetate 40 meq/ Potassium Phosphate 15 meq/ Calcium Gluconate 2.3 meq/Magnesium Sulfate 12 meq/ Multivitamins 10 ml/Chromium/ Copper/Manganese/ Zinc 1 ml/Amino Acids/Dextrose 1,042.3553 ml @ 43 mls/hr [id number] IV 09/22/24 22:00 09/23/24 21:59 Examination General Appearance:awake but in distress, response to questions by nodding HEENT: Atraumatic, Respiratory: coarse breath sound, more rhonchi on R, same as before Cardiovascular: tachycardia, Normal S1, Normal S2, No murmurs, no chest wall tenderness Abdominal: NO distention, no tenderness, bowel sounds present, no scars noted Extremities: left sided hemiplegic, right sided hemiparesis Skin: Has midline on the right arm Neuro: Nodding to speech Psych/Mental Status: stable laboratory and microbiology laboratory and microbiology Laboratory Tests 09/22/24 11:00 09/22/24 03:20 Test 09/22/24 03:20 Range/Units Serum Glucose 242 H 74-106 mg/dL Microbiology Date/Time Source Procedure Growth Status 09/14/24 01:41 Blood Blood Culture - Final NO GROWTH AFTER 5 DAYS OF INCUBATION. Complete 09/11/24 00:41 Nose MRSA Screen - Final Complete 09/11/24 00:41 Voided Urine Urine Culture - Final Yeast, not Viridiana albicans Complete 09/11/24 00:31 Sputum Gram Stain - Final Complete 09/11/24 00:31 Respiratory Culture - Final Staphylococcus aureus Complete Problem List/Assessment/Plan Problem List/Assessment/Plan Assessment and plan NEUROLOGY: Right sided hemiparesis likely repeated stroke leading to right hemiparesis with speech difficulty. ? Recurrent strokes despite on anticoagulation History of massive CVA with left sided hemiplegic Insomnia on as needed trazodone CARDIOVASCULAR: Paroxysmal atrial fibrillation with secondary hypercoagulable state Status post dual-chamber pacemaker Abott MRI friendly a-sensed v-paced Hypertensive heart disease, LVH: LVEF 65%. Mild LVH mild LV diastolic dysfunction Type II demand mediated NSTEMI, telemetry with conservative management Carotid stenosis ruled out: Bilateral carotid duplex from 06/30/2024 revealed no hemodynamically significant stenosis noted in the bilateral carotid system. Wide QRS, low voltage RBBB Lower risk of significant coronary artery disease: Nuclear stress test from 05/24/2023 revealed ECG findings negative for ischemia and nuclear findings negative for ischemia CT Chest 09/14: Mild cardiomegaly with coronary artery disease. [id number] atherosclerotic vascular disease. on Aspirin, eliquis Obtained Echo result pending Amiodarine drip since 09/15 RESPIRATORY: Aspiration pneumonia likely due to bulbar function B/l pneumonia gram +ve / gram -ve / atypicals Acute hypoxic respiratory failure on 6 L oxygen Pleural effusion ARDS due to possible aspiration pneumonitis Recurrent desaturation BIPAP continued ( 09/17/2025) Lung very coarse; give acetylcysteine 10% q6hrs - CT chest 09/14: Consolidations with air bronchograms in the bilateral lower lobes with evidence of mucus plugging, suspicious for aspiration. Patchy ground glass opacities in the upper lobes bilaterally, likely infectious or inflammatory in nature. X-ray( 09/14/2024) : Interval worsening of right upper lobe pneumonia. Stop IV fluid Continue Zosyn 4L oxygen NC Sputum culture: No growth GASTROINTESTINAL Failed swallow evaluation GERD with gastritis Protonix TPN should start today 09/21/2024 Moderate Malnutrition Plan GI consult for PEG; Per GI, it not feasible given patient's intermittent respiratory distress Lactulose discontinued METABOLIC Dyslipidemia Severe hypokalemia resolved obesity grade 1 replenish electrolytes GENITOURINARY Acute complicated cystitis, Yeast positive, No albicans Chronic hypothyroidism CAROLYN due to VMN ( baseline 0.87) fluconazoles: Stopped HEMATOLOGY Chronic macrocytic + iron deficient mixed anemia Monitor H& H closely and transfuse if hgb< 7 Coagulopathy- improved Lovenox: prophylactic dose ENDOCRINE Hypothyroidism acute on chronic likely due to medication indiscretion Give levothyroxine 100mcg INFECTIOUS DISEASE Severe sepsis with Septic shock Likely sepsis in the setting of aspiration pneumonia MRSA screen negative Continue zosyn; ( fluconazole , stopped 09/20/2024) Levophed -resumed 09/13/2024, Stopped being on it intermittently, prn) PICC line for IV antibiotics; unable to obtain 09/14/2024 PICC line trial today 09/18/2024 SKIN Decubitus ulcer high risk Completely bed bound at home. Others History of Breast cancer- outpatient follow up IV access Central line: right sided IJV: double lumen 09/10/2024; discontinued 09/12/2024 Midline: right upper arm 09/12/2024 PICC LINE: 09/19/2024 Diet: TPN today 09/21/2024 Morphine 2mg q1hr Ativan: 2mg q1hr Drips: Levophed RESUME 09/13/2024 due to hypotension; Held 09/15/[address] 09/10/2024 DVT prophylaxis: already on Lovenox prophylactic, low hgb GI prophylaxis: Protonix bid Diet: Jevity, stopped 09/15/2024 Disposition: ICU status Goal of care: Family wants hospice with [facility]; Code is modified code ( Chemical code) Critical care time 30 minutes, Advance care planning patient, daughter and Plan discussed with Dr. Prieto Plan discussed with: Spouse, Daughter, Son My Orders My Orders Orders - [address] Procedure Category Date Status Time Chest Xray 1 View XY 09/22/24 Resulted 04:00 Communication Order ORDERS 09/22/24 Transmitted 10:00 Acetaminophen PHA 09/22/24 In Process Suppository (Tylenol 11:15 Communication Order ORDERS 09/22/24 Transmitted 08:00 Amino Acid PHA 09/22/24 In Process Infusion... W/Fat 22:00 Comprehensive LAB 09/23/24 Verified Metabolic Panel 04:00 Magnesium LAB 09/23/24 Verified 04:00 Phosphorus LAB 09/23/24 Verified 04:00 Tpn Per Pharmacy [facility] 09/22/24 In Process 22:00 Dietary Evaluation Review Comments: Cardiac Diet, iron supplementation. Follow up with nephrology consult Expected Outcomes/Goals: Gradual wt loss, improved nutrition related lab values. Date of Service: Sep 22, 2024 Billing Provider: NICK PRIETO MD Common Visit Codes: NOT BILLABLE [address] Sep 22, 2024 14:24 NICK PRIETO MD Sep 26, 2024 13:55
--- NOTE | 2024-09-22 14:31 | DVHPN ---
DATE: 09/22/2024 GASTROENTEROLOGY PROGRESS NOTE REFERRING PHYSICIAN: Sharon Loomis. SUBJECTIVE: The patient is examined. The patient remains in the ICU. The patient remains on BiPAP. Currently, the patient's son is at bedside. The patient's family is requesting gastrostomy tube placement, which has been placed on hold due to respiratory distress and oxygen requirements. PHYSICAL EXAMINATION: VITAL SIGNS: Afebrile, heart rate 84, respirations 14, blood pressure is 107/79, O2 saturation 97% on a 45% BiPAP mask. GENERAL: This is a very ill 73-year-old female. She is awake. She is alert. ABDOMEN: Nondistended. There is no tenderness. She has a slightly obese abdomen. EXTREMITIES: No clubbing, no cyanosis. LABORATORY EXAMINATION: White blood cell count today is 15.8, hemoglobin is 8.3, hematocrit 25.2, MCV 97.8, and platelet count is 159,000. Sodium 151, potassium 4.1, chloride 112, bicarbonate 26, BUN 44, creatinine 0.72. AST 75, ALT 65, alkaline phosphatase 85. Bilirubin 0.2. Protein 4.9, albumin 3.0. Chest x-ray dated 09/22 shows left basilar atelectasis or pneumonia and cardiomegaly with mild congestion. ASSESSMENT: * Malnourishment and feeding difficulty. The patient is currently not a candidate for endoscopic gastrostomy placement due to oxygen requirements. * Respiratory distress, likely related to volume overload and pneumonia. * Sepsis. RECOMMENDATIONS: * Continue on BiPAP. * Continue diuresis. * We will defer endoscopic G-tube placement at this time. * Further recommendations based on her hospital course. Recommendations relayed to the patient's son at bedside. Michael Emerson DO AB/CONOR TID: [id number] RECEIPT: [id number]
--- NOTE | 2024-09-22 21:04 | DVHPN2 ---
Progress Note - Dictate Date Seen: Sep 22, 2024 Has the PT tested + for MRSA If YES, has PT been informed?: No Medical Necessity Reason Pt with a Central, PICC or Fol: No (mid line) The following are medically ne: PICC Line, Delgado Catheter Subjective Ms. Posada is a 73 years old right-handed female with a history of hypertension, atrial fibrillation, breast cancer, kidney stone, the patient was came to the hospital on 09/11/2024 with a chief company of shortness breath, general weakness, and the patient was found to have pneumonia, respiratory failure, hypotension, and the patient was admitted to ICU, the patient was also has other problems I have seen and examined the patient, and other family members in the room, I have talked to her nurse. She is on BiPAP, awake, very weak, she open her eyes, a looking around, she does not move extremities Blood culture, 09/11/2024: WBC/HB/PLT/MCV, 09/11/2024: 8.5/9.9/225/99.5 PTT/INR/ABG, 09/11/2024: 13.5/1.3/45.9 HCO3, 09/11/2024:19 BUN/CR, 09/11/2024: 30/1.16 HGB A1c, 07/12/2019 5:4.5 Liver function tests, 09/11/2024: Unremarkable TG/HDL/LDL/HDL, 07/14/2024: 89/110/59/26 Vitamin B12, 07/2019 5:1114 Folic acid, 07/2024: 0.9 TSH, 09/11/2024: 15.09 Echocardiogram, 09/14/2024: Technically difficult study. Difficult acoustic windows. Patient is uncooperative. From the limited views obtained there appears to be an underlying sinus tachycardia. There is [id number] mitral annular calcification however good excursion of the mitral leaflets. The aortic tricuspid and pulmonic or within normal limits. Left ventricular function is preserved at 60% with normal RV function. Dopplers unremarkable. No pericardial effusion masses or vegetations. Carotid Doppler, 06/30/24: No hemodynamically significant stenosis noted in the right carotid system. No hemodynamically significant stenosis noted in the left carotid system Carotid Doppler, 09/12/2024: No hemodynamically significant stenosis noted in the left carotid system. Chest x-ray, 09/11/2024: 1. Appropriate position of the support lines and tubes. 2. Bilateral pleural effusions. Chest X-ry, 09/18/2024: Cardiomegaly with pulmonary congestion and edema. Superimposed pneumonia cannot be excluded. Check X-ray, 09/19/2024: Cardiomegaly with mild congestion. MRI head, 09/13/2024: 1. Limited stroke protocol. Limited by motion.2. No evidence of acute infarction, intracranial hemorrhage, mass effect or hydrocephalus. 3. Old right MCA infarct. Consider follow-up exam when patient is able to tolerate vital signs Vital Sign Date Time Temp Pulse Resp B/P (MAP) Pulse Ox O2 Delivery O2 Flow Rate FiO2 09/22/24 20:26 70 17 180/44 09/22/24 18:45 98 09/22/24 18:45 Nasal BiPAP Mask 45 09/22/24 16:00 98.1 98.1 Total Intake and Output 09/21/24 09/21/24 09/22/24 15:00 23:00 07:00 Intake Total 641.28 ml 730.03 ml 696.28 ml Output Total 750 ml 750 ml Balance 641.28 ml -19.97 ml -53.72 ml medications Current Medications Medications Dose Ordered Sig/Miranda Route Start Time Stop Time Status Last Admin Dose Admin Nitroglycerin 0.4 mg Q5MINP PRN SL 09/11/24 00:30 Atorvastatin Calcium 40 mg HS NG 09/11/24 01:30 09/22/24 20:25 40 MG Levothyroxine Sodium 100 mcg DAILY IV 09/12/24 10:00 09/22/24 11:24 100 MCG Ipratropium [place] 0.5 mg Q6HWA PRN NEB 09/13/24 03:00 09/21/24 15:56 0.5 MG Levalbuterol HCl 0.625 mg Q6HWA PRN NEB 09/13/24 03:15 09/21/24 15:56 0.625 MG Piperacillin Sod/ Tazobactam Sod 100 ml @ 25 mls/hr Q8HR IV 09/14/24 06:30 09/22/24 20:24 25 MLS/HR Trazodone HCl 50 mg HS PO 09/15/24 23:45 09/22/24 20:25 50 MG Levalbuterol HCl 0.625 mg Q6HR NEB 09/16/24 12:00 09/22/24 18:45 0.625 MG Ipratropium [place] 0.5 mg Q6HR NEB 09/16/24 12:00 09/22/24 18:45 0.5 MG Phenylephrine HCl 250 ml @ 30 mls/hr Q8H20M IV 09/17/24 00:45 09/17/24 01:06 30 MLS/HR Diagnostic Test (Pha) 1 strip Q6HR 09/20/24 00:00 09/22/24 17:42 1 STRIP Insulin Human Regular FOLLOW SLIDING SCALE Q6HR SC 09/20/24 00:00 09/22/24 17:43 4 UNITS Dextrose 50 ml UD IV 09/20/24 00:00 Sodium Chloride 10 ml QSHIFT@10,22 IV 09/19/24 22:00 09/22/24 20:25 10 ML Hydralazine HCl 10 mg Q6HP PRN IV 09/19/24 19:00 09/19/24 22:53 10 MG Enoxaparin Sodium 40 mg DAILY SC 09/21/24 10:00 09/21/24 10:06 40 MG Amino Acids 0 ml @ 0 mls/hr PER PHARMACY IV 09/20/24 16:15 Acetylcysteine 100 mg Q6HR NEB 09/20/24 18:00 09/22/24 18:46 100 MG Furosemide 20 mg BIDD IV 09/20/24 18:00 09/22/24 17:32 20 MG Lorazepam 2 mg Q1H PRN IV 09/20/24 19:30 09/22/24 15:25 2 MG Morphine Sulfate 2 mg Q1HP PRN IV 09/20/24 19:30 09/22/24 20:26 2 MG Fat Emulsion Intravenous 50 ml/ Potassium Acetate 20 meq/Potassium Phosphate 22 meq/ Magnesium Sulfate 8 meq/ Multivitamins 10 ml/Chromium/ Copper/Manganese/ Zinc 1 ml/Amino Acids/Dextrose 878 ml @ 36 mls/hr [id number] IV 09/21/24 22:00 09/22/24 21:59 09/21/24 21:54 36 MLS/HR Pantoprazole Sodium 40 mg BID IV 09/22/24 10:00 09/22/24 20:24 40 MG Acetaminophen 650 mg Q6HP PRN [place] 09/22/24 11:15 09/22/24 17:35 650 MG Fat Emulsion Intravenous 100 ml/Potassium Acetate 40 meq/ Potassium Phosphate 15 meq/ Calcium Gluconate 2.3 meq/Magnesium Sulfate 12 meq/ Multivitamins 10 ml/Chromium/ Copper/Manganese/ Zinc 1 ml/Amino Acids/Dextrose 1,042.3553 ml @ 43 mls/hr [id number] IV 09/22/24 22:00 09/23/24 21:59 objective General: the patient is well developed and nourished. No acute distress. MENTAL STATUS: Subjective SPEECH, LANGUAGE, HIGHER CORTICAL FUNCTION: Subjective CRANIAL NERVES: Pupils are equal, round and reactive. EOMs full and conjugate. Facial sensation intact in all three divisions bilaterally. Mandibular strength intact. Facial muscles symmetrical and strength intact. SENSATION: Sensation to touch and pinprick is finel. MOTOR: Normal tone in the upper and lower extremity. Normal muscle bulk. No fasciculations. No abnormal movements or posturing. She can hardly move the extremities REFLEXES: Deep tendon reflexes normal and symmetrical. No pathological reflexes. CEREBELLAR/COORDINATION: Deferred GAIT/STATION: deferred. laboratory and microbiology Laboratory Tests 09/22/24 11:00 09/22/24 03:20 Test 09/22/24 03:20 Range/Units Serum Glucose 242 H 74-106 mg/dL Problem List Acute respiratory failure secondary to pneumonia Pneumonia/respiratory failure ? Aspiration Right sided weakness in 07/2024, rule out acute stroke Chronic stroke with residual left-sided hemiparesis Atrial fibrillation Coagulopathy Status post PICC line Anemia Assessment/Plan Monitoring Supportive treatment Follow-up lab ICU care Stabilize vitals Respiratory support/BiPAP Oxygen Lovenox 40 mg subQ daily for now Lipitor 40 mg daily TPN GI prophylaxis Feeding tube once patient is more stabilized More recommendation per clinical course This medical document was created using an electronic medical record system with [employer] dictation system. Although this document has been carefully reviewed, there may still be some phonetic and typographical errors. These areas are purely typographical due to imperfections of the software programs, and do not reflect any compromise in the patient's medical care. Prognosis poor Dietary Evaluation Review Comments: Cardiac Diet, iron supplementation. Follow up with nephrology consult Expected Outcomes/Goals: Gradual wt loss, improved nutrition related lab values. Plan discussed with: Other MARY RAMIREZ MD Sep 22, 2024 21:04
[2024-09-23] VITALS (101 sets, daily range): BP systolic 92–173; BP diastolic 24–61; PULSE 70–87; RESP 10–33; TEMP 97.6–100.5; O2SAT 89–99
[2024-09-23 02:55] LABS: Basophils # (auto) 0 10 ^3/uL (0-0.2); Eosinophils # (auto) 0 10 ^3/uL (0-0.8); Hemoglobin 7.3 g/dL (12.2-16.2); Lymphocytes # (auto) 0.7 10 ^3/uL (0.4-5.4); Monocytes # (auto) 0.5 10 ^3/uL (0-1.3); Neutrophils # (auto) 11.8 10 ^3/uL (1.6-8.6)
[2024-09-23 02:58] LABS: Basophils % (auto) 0.1 % (0.0-2.0); Hematocrit 21.4 % (36.0-46.0); Lymphocytes % (auto) 5.3 % (10.0-50.0); Mean Corpuscular Hgb Conc. 34.2 g/dL (32.0-36.0); Mean Corpuscular Volume 93.5 fL (80.0-100.0); Monocytes % (auto) 3.9 % (0.0-12.0); Neutrophils % (auto) 90.7 % (37.0-80.0); Nucleated Red Blood Cells % 0.1 %; Platelet Count (auto) 130 10^3/uL (140-450); Red Blood Cells 2.29 10^6/uL (4.0-5.20)
[2024-09-23 03:08] LABS: Alkaline Phosphatase 76 U/L (46-116); Anion Gap 12 (5-15); BUN/Creatinine Ratio 79.7 (10.0-20.0); Carbon Dioxide 26 mmol/L (20-31); Magnesium 2.2 mg/dL (1.6-2.6)
[2024-09-23 03:09] LABS: Bilirubin, Total 0.3 mg/dL (0.2-1.0); Phosphorus 2.7 mg/dL (2.4-5.1)
[2024-09-23 03:16] LABS: Alanine Aminotransferase 62 U/L (7-40); Albumin 2.9 g/dL (3.2-4.8); Aspartate Aminotransferase 64 U/L (<34); Blood Urea Nitrogen 47 mg/dL (9-23); Calcium 8.1 mg/dL (8.7-10.4); Chloride 114 mmol/L (98-107); Glucose 157 mg/dL (74-106); Potassium 3.1 mmol/L (3.5-5.1); Sodium 152 mmol/L (136-145); Total Protein 4.7 g/dL (5.7-8.2)
[2024-09-23] MEDS: POTASSIUM CHL 20MEQ/100ML 100 ML IV ONE (05:10)
--- NOTE | 2024-09-23 05:53 | DVH ---
CHEST RADIOGRAPH Indication: pneumonia/ effusion Technique: Single frontal view of the chest was obtained COMPARISON: XY CHEST XRAY 1 VIEW on DOS: 09/22/24, XY CHEST PORTABLE on DOS: 09/21/24, XY CHEST XRAY 1 VIEW on DOS: 09/20/24, XY CHEST PORTABLE on DOS: 09/19/24, XY CHEST PORTABLE on DOS: 09/19/24 FINDINGS: Lines and Tubes: Enteric catheter unchanged. Lungs: Stable small bilateral pleural effusions and bibasilar pulmonary airspace disease. No pneumothorax. Cardiomediastinal contours: Cardiomegaly. Bones: Unremarkable IMPRESSION: 1. Stable cardiomegaly, small bilateral pleural effusions and bibasilar pulmonary airspace disease. 2. Enteric catheter unchanged.
--- NOTE | 2024-09-23 09:42 | DVHPN ---
DATE: 09/23/2024 GASTROENTEROLOGY PROGRESS NOTE REFERRING PHYSICIAN: Sharon Loomis MD SUBJECTIVE: The patient is seen and examined. The patient remains on BiPAP. The patient's daughter is at bedside. No acute new issues noted overnight. The patient did receive Lasix yesterday for diuresis. PHYSICAL EXAMINATION: VITAL SIGNS: The patient is afebrile, heart rate 72, respirations 17, blood pressure 128/38, O2 saturation 97% on 45% FiO2. GENERAL: This is a 73-year-old female. She is resting comfortably currently on BiPAP. She is not alert or oriented. She is arousable but very sleepy. ABDOMEN: Soft, nontender, and nondistended. EXTREMITIES: No clubbing, no cyanosis, 1 to 2+ pitting edema. LABORATORY EVALUATION: White blood cell count 13.0, hemoglobin 7.3, hematocrit 21.4, MCV 93.5, platelet count 130,000. Sodium 152, potassium 3.1, chloride 114, bicarbonate 26, BUN 47, creatinine 0.59, blood glucose is 157, calcium 8.1, phosphorus 2.7, magnesium 2.2, AST 64, ALT is 62, bilirubin 0.3, alkaline phosphatase 76, protein is 4.7, albumin 2.9. PT/PTT are within normal limits. Chest x-ray from this morning shows stable cardiomegaly and small bilateral pleural effusions and bibasilar pulmonary air space disease. ASSESSMENT: * Malnourishment and feeding difficulty. The patient is currently not a candidate for endoscopic G-tube placement due to oxygen requirements. * Respiratory distress likely related to volume overload and pneumonia and pleural effusions. * Sepsis. RECOMMENDATIONS: * Continue current course of therapy. The patient will continue to wean off of oxygen requirements if possible. Continue IV antibiotic care. * Continue TPN. * Discussed plan with the patient's daughter, Rosa, at bedside and mentioned that PEG tube will be deferred until she becomes a little more stable from a respiratory standpoint. The patient's family is in agreement with plan. DO SIM Child/THAI TID: [id number] RECEIPT: [id number]
--- NOTE | 2024-09-23 09:57 | DVHPN2 ---
Assessment/Plan Assessment/Plan ICU note covering still on bipap, on TPN physical exam baseline mentation anisochoria coarse breath sound, more rhonchi on R s1 s2 rrr soft abdomen nontender trace le edema labs imaging ekg reviewed assessment and plan hx of CVA, R residual and aphasia, recurrent pafib HFpEF chronic diastolic HF aspiration pneumonia gp gn PLEF ARDS GERD malnutrition 2/2 decreased intake obesity acute cystitis CAROLYN possible VMN macrocytic anemia hypothyroidism septic shock req pressors decubital ulcer bed bound hx of breast cancer c/w bipap c/w abx coverage on TPN lovenox held labile BP, IV htn meds discontinued on lasix gi ppx protonix dvt ppx held diet TPN condition critical prognosis poor chemical code critical care time 60 minutes Plan discussed with: Other Date of Service: Sep 23, 2024 Billing Provider: JAVAN CASTILLO MD Common Visit Codes: [id number] CARE 30-74 MIN JAVAN CASTILLO MD Sep 23, 2024 09:57
[2024-09-23] MEDS: POTASSIUM PHOSPHATE 22 MEQ in SODIUM CHL 0.9% 100 ML IV ONE (13:48)
--- NOTE | 2024-09-23 13:54 | DVHPN2 ---
Progress Note - Dictate Date Seen: Sep 23, 2024 Has the PT tested + for MRSA If YES, has PT been informed?: No Medical Necessity Reason Pt with a Central, PICC or Fol: No (mid line) The following are medically ne: PICC Line, Delgado Catheter vital signs Vital Sign Date Time Temp Pulse Resp B/P (MAP) Pulse Ox O2 Delivery O2 Flow Rate FiO2 09/23/24 12:20 73 138/30 96 Facial BiPAP Mask 45 09/23/24 11:30 15 09/23/24 10:00 98.0 98.0 Total Intake and Output 09/22/24 09/22/24 09/23/24 15:00 23:00 07:00 Intake Total 1146.28 ml 603.28 ml 632.28 ml Output Total 375 ml 805 ml Balance 1146.28 ml 228.28 ml -172.72 ml medications Current Medications Medications Dose Ordered Sig/Miranda Route Start Time Stop Time Status Last Admin Dose Admin Nitroglycerin 0.4 mg Q5MINP PRN SL 09/11/24 00:30 Atorvastatin Calcium 40 mg HS NG 09/11/24 01:30 09/22/24 20:25 40 MG Levothyroxine Sodium 100 mcg DAILY IV 09/12/24 10:00 09/23/24 09:52 100 MCG Ipratropium [place] 0.5 mg Q6HWA PRN NEB 09/13/24 03:00 09/21/24 15:56 0.5 MG Levalbuterol HCl 0.625 mg Q6HWA PRN NEB 09/13/24 03:15 09/21/24 15:56 0.625 MG Piperacillin Sod/ Tazobactam Sod 100 ml @ 25 mls/hr Q8HR IV 09/14/24 06:30 09/23/24 05:09 25 MLS/HR Trazodone HCl 50 mg HS PO 09/15/24 23:45 09/22/24 20:25 50 MG Levalbuterol HCl 0.625 mg Q6HR NEB 09/16/24 12:00 09/23/24 12:20 0.625 MG Ipratropium [place] 0.5 mg Q6HR NEB 09/16/24 12:00 09/23/24 12:20 0.5 MG Phenylephrine HCl 250 ml @ 30 mls/hr Q8H20M IV 09/17/24 00:45 09/17/24 01:06 30 MLS/HR Diagnostic Test (Pha) 1 strip Q6HR 09/20/24 00:00 09/23/24 12:00 1 STRIP Insulin Human Regular FOLLOW SLIDING SCALE Q6HR SC 09/20/24 00:00 09/22/24 22:59 2 UNITS Dextrose 50 ml UD IV 09/20/24 00:00 Sodium Chloride 10 ml QSHIFT@10,22 IV 09/19/24 22:00 09/23/24 09:52 10 ML Enoxaparin Sodium 40 mg DAILY SC 09/21/24 10:00 09/21/24 10:06 40 MG Amino Acids 0 ml @ 0 mls/hr PER PHARMACY IV 09/20/24 16:15 Acetylcysteine 100 mg Q6HR NEB 09/20/24 18:00 09/23/24 12:20 100 MG Furosemide 20 mg BIDD IV 09/20/24 18:00 09/23/24 05:10 20 MG Lorazepam 2 mg Q1H PRN IV 09/20/24 19:30 09/22/24 15:25 2 MG Morphine Sulfate 2 mg Q1HP PRN IV 09/20/24 19:30 09/23/24 11:00 2 MG Pantoprazole Sodium 40 mg BID IV 09/22/24 10:00 09/23/24 09:52 40 MG Acetaminophen 650 mg Q6HP PRN [place] 09/22/24 11:15 09/22/24 17:35 650 MG Fat Emulsion Intravenous 100 ml/Potassium Acetate 40 meq/ Potassium Phosphate 15 meq/ Calcium Gluconate 2.3 meq/Magnesium Sulfate 12 meq/ Multivitamins 10 ml/Chromium/ Copper/Manganese/ Zinc 1 ml/Amino Acids/Dextrose 1,042.3553 ml @ 43 mls/hr [id number] IV 09/22/24 22:00 09/23/24 21:59 09/22/24 22:18 43 MLS/HR Fat Emulsion Intravenous 150 ml/Potassium Acetate 50 meq/ Potassium Phosphate 15 meq/ Calcium Gluconate 2.3 meq/Magnesium Sulfate 10 meq/ Multivitamins 10 ml/Chromium/ Copper/Manganese/ Zinc 1 ml/Amino Acids/Dextrose 1,146.8553 ml @ 48 mls/hr [id number] IV 09/23/24 22:00 09/24/24 21:59 laboratory and microbiology Laboratory Tests 09/23/24 02:37 Test 09/23/24 13:50 Range/Units Serum Glucose Pending Assessment/Plan Impression Acute hypoxemic respiratory failure Aspiration pneumonia Pleural effusions Atelectasis Patient seen and examined in ICU Events Patient continues to declined Remains bipap dependent Family considering hospice Labs and imaging reviewed Management Supplemental oxygen Titrate to maintain sats 90% or above Incentive spirometry Prn bipap Continue antibiotics F/u cultures Bronchodilators Monitor renal function Monitor electrolytes Supplement as needed Pressors as needed for hemodynamic support To maintain a mean arterial pressure of 65 mmHg Code status DNR Recommend hospice DVT prophylaxis Critical care time 35 minutes Dietary Evaluation Review Comments: Cardiac Diet, iron supplementation. Follow up with nephrology consult Expected Outcomes/Goals: Gradual wt loss, improved nutrition related lab values. Plan discussed with: Other (Rn) NICK PRIETO MD Sep 23, 2024 13:54
[2024-09-23 20:16] LABS: Anion Gap 8 (5-15)
[2024-09-23 20:21] LABS: BUN/Creatinine Ratio 72.5 (10.0-20.0)
[2024-09-23 20:23] LABS: Blood Urea Nitrogen 50 mg/dL (9-23); Calcium 8.6 mg/dL (8.7-10.4); Carbon Dioxide 29 mmol/L (20-31); Chloride 116 mmol/L (98-107); Glucose 131 mg/dL (74-106); Potassium 3.8 mmol/L (3.5-5.1); Sodium 153 mmol/L (136-145)
[2024-09-24] VITALS (106 sets, daily range): BP systolic 103–179; BP diastolic 12–77; PULSE 75–93; RESP 12–30; TEMP 98.7–99.2; O2SAT 87–100
[2024-09-24 03:15] LABS: Basophils # (auto) 0 10 ^3/uL (0-0.2); Basophils % (auto) 0.1 % (0.0-2.0); Eosinophils # (auto) 0.1 10 ^3/uL (0-0.8); Eosinophils % (auto) 1.2 % (0.0-7.0); Hematocrit 24.1 % (36.0-46.0); Hemoglobin 8.1 g/dL (12.2-16.2); Lymphocytes # (auto) 0.9 10 ^3/uL (0.4-5.4); Lymphocytes % (auto) 9.9 % (10.0-50.0); Mean Corpuscular Hemoglobin 31.6 pg (28.0-32.0); Mean Corpuscular Hgb Conc. 33.7 g/dL (32.0-36.0); Mean Corpuscular Volume 93.8 fL (80.0-100.0); Monocytes # (auto) 0.4 10 ^3/uL (0-1.3); Monocytes % (auto) 4.6 % (0.0-12.0); Neutrophils # (auto) 7.9 10 ^3/uL (1.6-8.6); Neutrophils % (auto) 84.2 % (37.0-80.0); Nucleated Red Blood Cells % 0.1 %; Platelet Count (auto) 124 10^3/uL (140-450); Red Blood Cells 2.57 10^6/uL (4.0-5.20); Red Cell Distribution Width 18.1 % (11.8-14.3); White Blood Cell 9.4 10^3/uL (4.4-10.8)
[2024-09-24 03:31] LABS: Alkaline Phosphatase 91 U/L (46-116); Anion Gap 11 (5-15); Carbon Dioxide 28 mmol/L (20-31); Magnesium 2.4 mg/dL (1.6-2.6); Phosphorus 2.6 mg/dL (2.4-5.1); Potassium 3.8 mmol/L (3.5-5.1)
[2024-09-24 03:32] LABS: Alanine Aminotransferase 74 U/L (7-40); Aspartate Aminotransferase 71 U/L (<34); Bilirubin, Total 0.3 mg/dL (0.2-1.0); Blood Urea Nitrogen 51 mg/dL (9-23); Calcium 8.1 mg/dL (8.7-10.4); Chloride 113 mmol/L (98-107); Glucose 131 mg/dL (74-106); Sodium 152 mmol/L (136-145); Total Protein 5.1 g/dL (5.7-8.2)
[2024-09-24] MEDS: MORPHINE SULFATE 4 MG/ML SYR/VIAL IV PRN (11:06)
[2024-09-24] MEDS: FUROSEMIDE 40 MG/4 ML VIAL IV ONE (12:21)
--- NOTE | 2024-09-24 13:07 | DVH ---
EXAM: XY CHEST XRAY 1 VIEW CLINICAL HISTORY: Assess patient's lung status. TECHNIQUE: Single AP view of the chest WID: COMPARISON: XY CHEST XRAY 1 VIEW on DOS: 09/23/24 FINDINGS: Lines and tubes: Left-sided [address] Chest: The heart size and pulmonary vasculature is within normal limits. Calcified plaque projects over the aortic arch. Bibasilar mixed opacities, greater on the right, which appears improved since prior. No pneumothorax . Small bilateral pleural effusions. The osseous structures are grossly intact. IMPRESSION: 1. Mild bibasilar mixed opacities, greater on the right which could reflect pneumonia or atelectasis. This appears improved since prior. 2. Small bilateral pleural effusions.
--- NOTE | 2024-09-24 13:08 | DVHPN2 ---
Assessment/Plan Assessment/Plan ICU note covering still on bipap, on TPN. on off hypoxic. prognosis is grim physical exam somnolent anisochoria coarse breath sound, more rhonchi on R s1 s2 rrr soft abdomen nontender trace le edema labs imaging ekg reviewed assessment and plan hx of CVA, R residual and aphasia, recurrent pafib HFpEF chronic diastolic HF aspiration pneumonia gp gn PLEF ARDS GERD malnutrition 2/2 decreased intake obesity acute cystitis CAROLYN possible VMN macrocytic anemia hypothyroidism septic shock req pressors decubital ulcer bed bound hx of breast cancer c/w bipap c/w abx coverage on TPN lovenox held labile BP, IV htn meds discontinued on lasix gi ppx protonix dvt ppx held diet TPN condition critical prognosis grim chemical code critical care time 45 minutes Plan discussed with: Other Date of Service: Sep 24, 2024 Billing Provider: JAVAN CASTILLO MD Common Visit Codes: [id number] CARE 30-74 MIN JAVAN CASTILLO MD Sep 24, 2024 13:08
--- NOTE | 2024-09-24 13:50 | DVHPN2 ---
Progress Note - Dictate Date Seen: Sep 24, 2024 Has the PT tested + for MRSA If YES, has PT been informed?: No Medical Necessity Reason Pt with a Central, PICC or Fol: No (mid line) The following are medically ne: PICC Line, Delgado Catheter vital signs Vital Sign Date Time Temp Pulse Resp B/P (MAP) Pulse Ox O2 Delivery O2 Flow Rate FiO2 09/24/24 13:43 89 36 113/17 09/24/24 12:54 98 Nasal BiPAP Mask 70 09/24/24 04:00 98.7 98.7 Total Intake and Output 09/23/24 09/23/24 09/24/24 15:00 23:00 07:00 Intake Total 588.28 ml 751.03 ml 567.22 ml Output Total 700 ml 750 ml Balance 588.28 ml 51.03 ml -182.78 ml medications Current Medications Medications Dose Ordered Sig/Miranda Route Start Time Stop Time Status Last Admin Dose Admin Nitroglycerin 0.4 mg Q5MINP PRN SL 09/11/24 00:30 Atorvastatin Calcium 40 mg HS NG 09/11/24 01:30 09/22/24 20:25 40 MG Levothyroxine Sodium 100 mcg DAILY IV 09/12/24 10:00 09/24/24 10:31 100 MCG Ipratropium [place] 0.5 mg Q6HWA PRN NEB 09/13/24 03:00 09/21/24 15:56 0.5 MG Levalbuterol HCl 0.625 mg Q6HWA PRN NEB 09/13/24 03:15 09/21/24 15:56 0.625 MG Piperacillin Sod/ Tazobactam Sod 100 ml @ 25 mls/hr Q8HR IV 09/14/24 06:30 09/24/24 05:39 25 MLS/HR Trazodone HCl 50 mg HS PO 09/15/24 23:45 09/22/24 20:25 50 MG Levalbuterol HCl 0.625 mg Q6HR NEB 09/16/24 12:00 09/24/24 11:17 0.625 MG Ipratropium [place] 0.5 mg Q6HR NEB 09/16/24 12:00 09/24/24 11:17 0.5 MG Phenylephrine HCl 250 ml @ 30 mls/hr Q8H20M IV 09/17/24 00:45 09/17/24 01:06 30 MLS/HR Diagnostic Test (Pha) 1 strip Q6HR 09/20/24 00:00 09/24/24 11:42 1 STRIP Insulin Human Regular FOLLOW SLIDING SCALE Q6HR SC 09/20/24 00:00 09/22/24 22:59 2 UNITS Dextrose 50 ml UD IV 09/20/24 00:00 Sodium Chloride 10 ml QSHIFT@10,22 IV 09/19/24 22:00 09/24/24 10:31 10 ML Enoxaparin Sodium 40 mg DAILY SC 09/21/24 10:00 09/24/24 10:31 40 MG Amino Acids 0 ml @ 0 mls/hr PER PHARMACY IV 09/20/24 16:15 Acetylcysteine 100 mg Q6HR NEB 09/20/24 18:00 09/24/24 11:17 100 MG Furosemide 20 mg BIDD IV 09/20/24 18:00 09/24/24 05:52 20 MG Lorazepam 2 mg Q1H PRN IV 09/20/24 19:30 09/24/24 05:52 2 MG Pantoprazole Sodium 40 mg BID IV 09/22/24 10:00 09/24/24 10:30 40 MG Acetaminophen 650 mg Q6HP PRN [place] 09/22/24 11:15 09/22/24 17:35 650 MG Fat Emulsion Intravenous 150 ml/Potassium Acetate 50 meq/ Potassium Phosphate 15 meq/ Calcium Gluconate 2.3 meq/Magnesium Sulfate 10 meq/ Multivitamins 10 ml/Chromium/ Copper/Manganese/ Zinc 1 ml/Amino Acids/Dextrose 1,146.8553 ml @ 48 mls/hr [id number] IV 09/23/24 22:00 09/24/24 21:59 09/23/24 19:48 48 MLS/HR Morphine Sulfate 2 mg Q1HP PRN IV 09/24/24 10:00 09/24/24 13:43 2 MG Fat Emulsion Intravenous 150 ml/Potassium Acetate 50 meq/ Potassium Phosphate 30 meq/ Calcium Gluconate 4.65 meq/ Magnesium Sulfate 10 meq/ Multivitamins 10 ml/Chromium/ Copper/Manganese/ Zinc 1 ml/Amino Acids/Dextrose 1,155.3182 ml @ 48 mls/hr Q24H5M IV 09/24/24 22:00 6/23/25 21:59 laboratory and microbiology Laboratory Tests 09/24/24 03:00 Test 09/24/24 03:00 Range/Units Serum Glucose 131 H 74-106 mg/dL Assessment/Plan Impression Acute hypoxemic respiratory failure Aspiration pneumonia Pleural effusions Atelectasis Patient seen and examined in ICU Events No improvement in status Remains bipap dependent Desaturations reported Family leaning towards hospice Labs and imaging reviewed Management Supplemental oxygen Titrate to maintain sats 90% or above Incentive spirometry Prn bipap Continue antibiotics F/u cultures Bronchodilators Monitor renal function Monitor electrolytes Supplement as needed Pressors as needed for hemodynamic support To maintain a mean arterial pressure of 65 mmHg Code status DNR Family leaning towards hospice DVT prophylaxis Critical care time 35 minutes Dietary Evaluation Review Comments: Cardiac Diet, iron supplementation. Follow up with nephrology consult Expected Outcomes/Goals: Gradual wt loss, improved nutrition related lab values. Plan discussed with: Other (Rn) NICK PRIETO MD Sep 24, 2024 13:50
[2024-09-24] MEDS: [UNRECOGNIZED DRUG - OTHER] IV NR (21:46)
[2024-09-24] MEDS: FAT EMULSION IV NR (21:46)
[2024-09-24] MEDS: POTASSIUM ACETATE IV NR (21:46)
[2024-09-24] MEDS: POTASSIUM PHOSPHATE IV NR (21:46)
--- NOTE | 2024-09-24 23:23 | DVHPN2 ---
Progress Note - Dictate Date Seen: Sep 24, 2024 Has the PT tested + for MRSA If YES, has PT been informed?: No Medical Necessity Reason Pt with a Central, PICC or Fol: No (mid line) The following are medically ne: PICC Line, Delgado Catheter Subjective Ms. Posada is a 73 years old right-handed female with a history of hypertension, atrial fibrillation, breast cancer, kidney stone, the patient was came to the hospital on 09/11/2024 with a chief company of shortness breath, general weakness, and the patient was found to have pneumonia, respiratory failure, hypotension, and the patient was admitted to ICU, the patient was also has other problems I have seen and examined the patient, isin the room, I have talked to her nurse. She is on BiPAP, awake, very weak, she open her eyes, she does not move extremities Blood culture, 09/11/2024: WBC/HB/PLT/MCV, 09/11/2024: 8.5/9.9/225/99.5 PTT/INR/ABG, 09/11/2024: 13.5/1.3/45.9 Na, 10/02/24: 144, 09/16/24: 146, 09/18/24: 153, 09/20/2024:, 151 09/24/2024: 152 HCO3, 09/11/2024:19 BUN/CR, 09/11/2024: 30/1.16 HGB A1c, 07/12/2019 5:4.5 Liver function tests, 09/11/2024: Unremarkable TG/HDL/LDL/HDL, 07/14/2024: 89/110/59/26 Vitamin B12, 07/2019 5:1114 Folic acid, 07/2024: 0.9 TSH, 09/11/2024: 15.09 Echocardiogram, 09/14/2024: Technically difficult study. Difficult acoustic windows. Patient is uncooperative. From the limited views obtained there appears to be an underlying sinus tachycardia. There is [id number] mitral annular calcification however good excursion of the mitral leaflets. The aortic tricuspid and pulmonic or within normal limits. Left ventricular function is preserved at 60% with normal RV function. Dopplers unremarkable. No pericardial effusion masses or vegetations. Carotid Doppler, 06/30/24: No hemodynamically significant stenosis noted in the right carotid system. No hemodynamically significant stenosis noted in the left carotid system Carotid Doppler, 09/12/2024: No hemodynamically significant stenosis noted in the left carotid system. Chest x-ray, 09/11/2024: 1. Appropriate position of the support lines and tubes. 2. Bilateral pleural effusions. Chest X-ry, 09/18/2024: Cardiomegaly with pulmonary congestion and edema. Superimposed pneumonia cannot be excluded. Check X-ray, 09/19/2024: Cardiomegaly with mild congestion. Chest X-ray, 09/24/2024: 1. Mild bibasilar mixed opacities, greater on the right which could reflect pneumonia or atelectasis. This appears improved since prior. 2. Small bilateral pleural effusions. MRI head, 09/13/2024: 1. Limited stroke protocol. Limited by motion.2. No evidence of acute infarction, intracranial hemorrhage, mass effect or hydrocephalus. 3. Old right MCA infarct. Consider follow-up exam when patient is able to tolerate vital signs Vital Sign Date Time Temp Pulse Resp B/P (MAP) Pulse Ox O2 Delivery O2 Flow Rate FiO2 09/24/24 22:45 87 22 138/22 (60) 97 09/24/24 22:16 Nasal BiPAP Mask 45 09/24/24 22:00 99.0 99.0 Total Intake and Output 09/23/24 09/23/24 09/24/24 15:00 23:00 07:00 Intake Total 588.28 ml 751.03 ml 567.22 ml Output Total 700 ml 750 ml Balance 588.28 ml 51.03 ml -182.78 ml medications Current Medications Medications Dose Ordered Sig/Miranda Route Start Time Stop Time Status Last Admin Dose Admin Nitroglycerin 0.4 mg Q5MINP PRN SL 09/11/24 00:30 Atorvastatin Calcium 40 mg HS NG 09/11/24 01:30 09/22/24 20:25 40 MG Levothyroxine Sodium 100 mcg DAILY IV 09/12/24 10:00 09/24/24 10:31 100 MCG Ipratropium [place] 0.5 mg Q6HWA PRN NEB 09/13/24 03:00 09/21/24 15:56 0.5 MG Levalbuterol HCl 0.625 mg Q6HWA PRN NEB 09/13/24 03:15 09/21/24 15:56 0.625 MG Piperacillin Sod/ Tazobactam Sod 100 ml @ 25 mls/hr Q8HR IV 09/14/24 06:30 09/24/24 21:41 25 MLS/HR Trazodone HCl 50 mg HS PO 09/15/24 23:45 09/22/24 20:25 50 MG Levalbuterol HCl 0.625 mg Q6HR NEB 09/16/24 12:00 09/24/24 18:25 0.625 MG Ipratropium [place] 0.5 mg Q6HR NEB 09/16/24 12:00 09/24/24 18:25 0.5 MG Phenylephrine HCl 250 ml @ 30 mls/hr Q8H20M IV 09/17/24 00:45 09/17/24 01:06 30 MLS/HR Diagnostic Test (Pha) 1 strip Q6HR 09/20/24 00:00 09/24/24 18:22 1 STRIP Insulin Human Regular FOLLOW SLIDING SCALE Q6HR SC 09/20/24 00:00 09/22/24 22:59 2 UNITS Dextrose 50 ml UD IV 09/20/24 00:00 Sodium Chloride 10 ml QSHIFT@10,22 IV 09/19/24 22:00 09/24/24 22:04 10 ML Enoxaparin Sodium 40 mg DAILY SC 09/21/24 10:00 09/24/24 10:31 40 MG Amino Acids 0 ml @ 0 mls/hr PER PHARMACY IV 09/20/24 16:15 Furosemide 20 mg BIDD IV 09/20/24 18:00 09/24/24 20:02 20 MG Lorazepam 2 mg Q1H PRN IV 09/20/24 19:30 09/24/24 05:52 2 MG Pantoprazole Sodium 40 mg BID IV 09/22/24 10:00 09/24/24 21:41 40 MG Acetaminophen 650 mg Q6HP PRN SD 09/22/24 11:15 09/22/24 17:35 650 MG Morphine Sulfate 2 mg Q1HP PRN IV 09/24/24 10:00 09/24/24 13:43 2 MG Fat Emulsion Intravenous 150 ml/Potassium Acetate 50 meq/ Potassium Phosphate 30 meq/ Calcium Gluconate 4.65 meq/ Magnesium Sulfate 10 meq/ Multivitamins 10 ml/Chromium/ Copper/Manganese/ Zinc 1 ml/Amino Acids/Dextrose 1,155.3182 ml @ 48 mls/hr Q24H5M IV 09/24/24 22:00 09/25/24 21:59 09/24/24 21:46 48 MLS/HR objective General: the patient is well developed and nourished. No acute distress. MENTAL STATUS: Subjective SPEECH, LANGUAGE, HIGHER CORTICAL FUNCTION: Subjective CRANIAL NERVES: Pupils are equal, round and reactive. EOMs full and conjugate. Facial sensation intact in all three divisions bilaterally. Mandibular strength intact. Facial muscles symmetrical and strength intact. SENSATION: Sensation to touch and pinprick is finel. MOTOR: Normal tone in the upper and lower extremity. Normal muscle bulk. No fasciculations. No abnormal movements or posturing. He does not move the extremities REFLEXES: Deep tendon reflexes normal and symmetrical. No pathological reflexes. CEREBELLAR/COORDINATION: Deferred GAIT/STATION: deferred. laboratory and microbiology Laboratory Tests 09/24/24 03:00 Test 09/24/24 03:00 Range/Units Serum Glucose 131 H 74-106 mg/dL Problem List Acute respiratory failure secondary to pneumonia Pneumonia/respiratory failure ? Aspiration Right sided weakness in 07/2024, rule out acute stroke Chronic stroke with residual left-sided hemiparesis Atrial fibrillation Coagulopathy Status post PICC line Anemia Hyponatremia Assessment/Plan Monitoring Supportive treatment Follow-up lab ICU care Stabilize vitals Respiratory support/BiPAP Oxygen Lovenox 40 mg subQ daily for now Lipitor 40 mg daily TPN GI prophylaxis Feeding tube once patient is more stabilized More recommendation per clinical course This medical document was created using an electronic medical record system with 1,2,3 [employer] dictation system. Although this document has been carefully reviewed, there may still be some phonetic and typographical errors. These areas are purely typographical due to imperfections of the software programs, and do not reflect any compromise in the patient's medical care. Prognosis poor Dietary Evaluation Review Comments: Cardiac Diet, iron supplementation. Follow up with nephrology consult Expected Outcomes/Goals: Gradual wt loss, improved nutrition related lab values. Plan discussed with: Spouse, Other MARY RAMIREZ MD Sep 24, 2024 23:23
[2024-09-25] VITALS (112 sets, daily range): BP systolic 84–155; BP diastolic 13–77; PULSE 70–114; RESP 13–28; TEMP 98.3–100; O2SAT 73–100
[2024-09-25 03:31] LABS: Basophils # (auto) 0 10 ^3/uL (0-0.2); Eosinophils # (auto) 0.1 10 ^3/uL (0-0.8); Lymphocytes # (auto) 0.5 10 ^3/uL (0.4-5.4); Lymphocytes % (auto) 6.4 % (10.0-50.0); White Blood Cell 8.1 10^3/uL (4.4-10.8)
[2024-09-25 03:34] LABS: Basophils % (auto) 0.4 % (0.0-2.0); Eosinophils % (auto) 1.6 % (0.0-7.0); Hematocrit 19.7 % (36.0-46.0); Mean Corpuscular Hemoglobin 32.1 pg (28.0-32.0); Mean Corpuscular Hgb Conc. 34.4 g/dL (32.0-36.0); Mean Corpuscular Volume 93.3 fL (80.0-100.0); Monocytes # (auto) 0.4 10 ^3/uL (0-1.3); Monocytes % (auto) 5.5 % (0.0-12.0); Neutrophils % (auto) 86.1 % (37.0-80.0); Platelet Count (auto) 98 10^3/uL (140-450); Red Blood Cells 2.12 10^6/uL (4.0-5.20); Red Cell Distribution Width 17.5 % (11.8-14.3)
[2024-09-25 03:39] LABS: Alkaline Phosphatase 91 U/L (46-116); Anion Gap 10 (5-15); BUN/Creatinine Ratio 81.7 (10.0-20.0); Bilirubin, Total 0.4 mg/dL (0.2-1.0); Carbon Dioxide 30 mmol/L (20-31); Magnesium 2.2 mg/dL (1.6-2.6); Phosphorus 2.6 mg/dL (2.4-5.1)
[2024-09-25 03:56] LABS: Alanine Aminotransferase 73 U/L (7-40); Albumin 2.7 g/dL (3.2-4.8); Aspartate Aminotransferase 69 U/L (<34); Blood Urea Nitrogen 58 mg/dL (9-23); Calcium 8.1 mg/dL (8.7-10.4); Chloride 111 mmol/L (98-107); Glucose 122 mg/dL (74-106); Potassium 3.4 mmol/L (3.5-5.1); Sodium 151 mmol/L (136-145)
[2024-09-25 04:06] LABS: Hemoglobin 6.8 g/dL (12.2-16.2)
--- NOTE | 2024-09-25 10:08 | DVHPN2 ---
Progress Note - Dictate Date Seen: Sep 25, 2024 Has the PT tested + for MRSA If YES, has PT been informed?: No Medical Necessity Reason Pt with a Central, PICC or Fol: No (mid line) The following are medically ne: PICC Line, Delgado Catheter Subjective Ms. Posada is a 73 years old right-handed female with a history of hypertension, atrial fibrillation, breast cancer, kidney stone, the patient was came to the hospital on 09/11/2024 with a chief company of shortness breath, general weakness, and the patient was found to have pneumonia, respiratory failure, hypotension, and the patient was admitted to ICU, the patient was also has other problems I have seen and examined the patient, and other family member are in the room, I have talked to her nurse. She is on BiPAP, awake, very weak, she open her eyes, she does not move extremities. All this no improvement Her blood pressure is low, especially diastolic blood pressure, but they were obtained from the leg Blood culture, 09/11/2024: WBC/HB/PLT/MCV, 09/11/2024: 8.5/9.9/225/99.5 PTT/INR/ABG, 09/11/2024: 13.5/1.3/45.9 Na, 10/02/24: 144, 09/16/24: 146, 09/18/24: 153, 09/20/2024:, 151 09/24/2024: 152 HCO3, 09/11/2024:19 BUN/CR, 09/11/2024: 30/1.16 HGB A1c, 07/12/2019 5:4.5 Liver function tests, 09/11/2024: Unremarkable TG/HDL/LDL/HDL, 07/14/2024: 89/110/59/26 Vitamin B12, 07/2019 5:1114 Folic acid, 07/2024: 0.9 TSH, 09/11/2024: 15.09 Echocardiogram, 09/14/2024: Technically difficult study. Difficult acoustic windows. Patient is uncooperative. From the limited views obtained there appears to be an underlying sinus tachycardia. There is [id number]-[id number] mitral annular calcification however good excursion of the mitral leaflets. The aortic tricuspid and pulmonic or within normal limits. Left ventricular function is preserved at 60% with normal RV function. Dopplers unremarkable. No pericardial effusion masses or vegetations. Carotid Doppler, 06/30/24: No hemodynamically significant stenosis noted in the right carotid system. No hemodynamically significant stenosis noted in the left carotid system Carotid Doppler, 09/12/2024: No hemodynamically significant stenosis noted in the left carotid system. Chest x-ray, 09/11/2024: 1. Appropriate position of the support lines and tubes. 2. Bilateral pleural effusions. Chest X-ry, 09/18/2024: Cardiomegaly with pulmonary congestion and edema. Superimposed pneumonia cannot be excluded. Check X-ray, 09/19/2024: Cardiomegaly with mild congestion. Chest X-ray, 09/24/2024: 1. Mild bibasilar mixed opacities, greater on the right which could reflect pneumonia or atelectasis. This appears improved since prior. 2. Small bilateral pleural effusions. MRI head, 09/13/2024: 1. Limited stroke protocol. Limited by motion.2. No evidence of acute infarction, intracranial hemorrhage, mass effect or hydrocephalus. 3. Old right MCA infarct. Consider follow-up exam when patient is able to tolerate vital signs Vital Sign Date Time Temp Pulse Resp B/P (MAP) Pulse Ox O2 Delivery O2 Flow Rate FiO2 09/25/24 09:27 71 95/33 73 Nasal BiPAP Mask 35 09/25/24 09:25 99.1 16 99.1 Total Intake and Output 09/24/24 09/24/24 09/25/24 15:00 23:00 07:00 Intake Total 567.28 ml 426.28 ml 527.62 ml Output Total 850 ml 680 ml Balance 567.28 ml -423.72 ml -152.38 ml medications Current Medications Medications Dose Ordered Sig/Miranda Route Start Time Stop Time Status Last Admin Dose Admin Nitroglycerin 0.4 mg Q5MINP PRN SL 09/11/24 00:30 Atorvastatin Calcium 40 mg HS NG 09/11/24 01:30 09/22/24 20:25 40 MG Levothyroxine Sodium 100 mcg DAILY IV 09/12/24 10:00 09/24/24 10:31 100 MCG Ipratropium [place] 0.5 mg Q6HWA PRN NEB 09/13/24 03:00 09/21/24 15:56 0.5 MG Levalbuterol HCl 0.625 mg Q6HWA PRN NEB 09/13/24 03:15 09/21/24 15:56 0.625 MG Trazodone HCl 50 mg HS PO 09/15/24 23:45 09/22/24 20:25 50 MG Levalbuterol HCl 0.625 mg Q6HR NEB 09/16/24 12:00 09/25/24 06:22 0.625 MG Ipratropium [place] 0.5 mg Q6HR NEB 09/16/24 12:00 09/25/24 06:22 0.5 MG Phenylephrine HCl 250 ml @ 30 mls/hr Q8H20M IV 09/17/24 00:45 09/17/24 01:06 30 MLS/HR Diagnostic Test (Pha) 1 strip Q6HR 09/20/24 00:00 09/25/24 05:47 1 STRIP Insulin Human Regular FOLLOW SLIDING SCALE Q6HR SC 09/20/24 00:00 09/25/24 00:31 2 UNITS Dextrose 50 ml UD IV 09/20/24 00:00 Sodium Chloride 10 ml QSHIFT@10,22 IV 09/19/24 22:00 09/24/24 22:04 10 ML Enoxaparin Sodium 40 mg DAILY SC 09/21/24 10:00 09/24/24 10:31 40 MG Amino Acids 0 ml @ 0 mls/hr PER PHARMACY IV 09/20/24 16:15 Furosemide 20 mg BIDD IV 09/20/24 18:00 09/25/24 05:38 20 MG Lorazepam 2 mg Q1H PRN IV 09/20/24 19:30 09/25/24 08:27 2 MG Pantoprazole Sodium 40 mg BID IV 09/22/24 10:00 09/24/24 21:41 40 MG Acetaminophen 650 mg Q6HP PRN AR 09/22/24 11:15 09/22/24 17:35 650 MG Morphine Sulfate 2 mg Q1HP PRN IV 09/24/24 10:00 09/25/24 01:51 2 MG Fat Emulsion Intravenous 150 ml/Potassium Acetate 50 meq/ Potassium Phosphate 30 meq/ Calcium Gluconate 4.65 meq/ Magnesium Sulfate 10 meq/ Multivitamins 10 ml/Chromium/ Copper/Manganese/ Zinc 1 ml/Amino Acids/Dextrose 1,155.3182 ml @ 48 mls/hr Q24H5M IV 09/24/24 22:00 09/25/24 21:59 09/24/24 21:46 48 MLS/HR Fat Emulsion Intravenous 150 ml/Potassium Acetate 40 meq/ Potassium Phosphate 35 meq/ Calcium Gluconate 3.5 meq/Magnesium Sulfate 10 meq/ Multivitamins 10 ml/Chromium/ Copper/Manganese/ Zinc 1 ml/Amino Acids/Amino Acids 1,098.9813 ml @ 46 mls/hr Q19S90V IV 09/25/24 22:00 09/26/24 21:59 objective General: the patient is well developed and nourished. No acute distress. MENTAL STATUS: Subjective SPEECH, LANGUAGE, HIGHER CORTICAL FUNCTION: Subjective CRANIAL NERVES: Pupils are equal, round and reactive. EOMs full and conjugate. Facial sensation intact in all three divisions bilaterally. Mandibular strength intact. Facial muscles symmetrical and strength intact. SENSATION: Sensation to touch and pinprick is finel. MOTOR: Normal tone in the upper and lower extremity. Normal muscle bulk. No fasciculations. No abnormal movements or posturing. He does not move the extremities REFLEXES: Deep tendon reflexes normal and symmetrical. No pathological reflexes. CEREBELLAR/COORDINATION: Deferred GAIT/STATION: deferred. laboratory and microbiology Laboratory Tests 09/25/24 03:02 Test 09/25/24 03:02 Range/Units Serum Glucose 122 H 74-106 mg/dL Problem List Acute respiratory failure secondary to pneumonia Pneumonia/respiratory failure ? Aspiration Right sided weakness in 07/2024, rule out acute stroke Chronic stroke with residual left-sided hemiparesis Atrial fibrillation Coagulopathy Status post PICC line Anemia Hyponatremia Assessment/Plan Monitoring Supportive treatment Follow-up lab ICU care Stabilize vitals Respiratory support/BiPAP Oxygen Lovenox 40 mg subQ daily for now Lipitor 40 mg daily TPN GI prophylaxis Feeding tube once patient is more stabilized More recommendation per clinical course This medical document was created using an electronic medical record system with [employer] dictation system. Although this document has been carefully reviewed, there may still be some phonetic and typographical errors. These areas are purely typographical due to imperfections of the software programs, and do not reflect any compromise in the patient's medical care. Prognosis poor Dietary Evaluation Review Comments: Cardiac Diet, iron supplementation. Follow up with nephrology consult Expected Outcomes/Goals: Gradual wt loss, improved nutrition related lab values. Plan discussed with: Spouse, Other MARY RAMIREZ MD Sep 25, 2024 10:08
[2024-09-25 11:00] LABS: Base Excess 4.7 mmol/L (-2.0-3.0)
[2024-09-25] MEDS: POTASSIUM CHLORIDE 40 MEQ, LIDOCAINE 1% (LOCAL ANESTH.) 4 ML in SODIUM CHL 0.9% 250 ML IV ONE (11:30)
--- NOTE | 2024-09-25 16:00 | DVH ---
RIGHT Upper Extremity Venous Duplex Clinical History: arm swelling Comparison: None Findings: Duplex Doppler evaluation of the venous system of the RIGHT lower neck and upper extremity including color Doppler and spectral/pulsed waveform analysis was performed. The internal jugular vein demonstrates appropriate compressibility and waveform variability. The subclavian vein is patent on color Doppler evaluation without intraluminal thrombus and demonstra alvin waveform variability. The visualized portion of the brachiocephalic vein is patent on color Doppler evaluation without intr aluminal thrombus and demonstrates waveform variability. The axillary vein demonstrates appropriate compressibility and waveform variability. Thrombus in the brachial vein. The basilic vein demonstrates appropriate compressibility and patency on Doppler evaluation. The cephalic vein demonstrates appropriate compressibility and patency on Doppler evaluation. Impression: Thrombus in the brachial vein. . If clinical concern/symptoms persist or worsen, short-interval follow-up study is suggested.
[2024-09-25] MEDS: LORazepam 2MG/ML-1ML VIAL IV PRN (17:54)
[2024-09-25 18:09] LABS: Basophils # (auto) 0 10 ^3/uL (0-0.2); Basophils % (auto) 0.1 % (0.0-2.0); Eosinophils # (auto) 0.2 10 ^3/uL (0-0.8); Eosinophils % (auto) 2.1 % (0.0-7.0); Hematocrit 27.9 % (36.0-46.0); Hemoglobin 9.3 g/dL (12.2-16.2); Lymphocytes # (auto) 0.7 10 ^3/uL (0.4-5.4); Lymphocytes % (auto) 7.9 % (10.0-50.0); Mean Corpuscular Hemoglobin 30.7 pg (28.0-32.0); Mean Corpuscular Hgb Conc. 33.2 g/dL (32.0-36.0); Mean Corpuscular Volume 92.5 fL (80.0-100.0); Monocytes # (auto) 0.5 10 ^3/uL (0-1.3); Monocytes % (auto) 5.6 % (0.0-12.0); Neutrophils # (auto) 7.1 10 ^3/uL (1.6-8.6); Neutrophils % (auto) 84.3 % (37.0-80.0); Nucleated Red Blood Cells % 0.1 %; Platelet Count (auto) 112 10^3/uL (140-450); Red Blood Cells 3.01 10^6/uL (4.0-5.20); Red Cell Distribution Width 16.9 % (11.8-14.3); White Blood Cell 8.4 10^3/uL (4.4-10.8)
[2024-09-25 18:28] LABS: INR 1.03 (0.9-1.15); Partial Thromboplastin Time 32.2 SEC (24.5-34.5); Prothrombin Time 10.9 sec (9.3-11.8)
--- NOTE | 2024-09-25 18:45 | CONS ---
Pharmacy Clinical Information: HEPARIN DRIP PROTOCOL SPOKE TO MILIND HOWELL REGARDING NEW HEPARIN DRIP: 09/25/2024 AT 17:38 aPTT = 32.2 HEPARIN BOLUS: 6200 UNITS IVP X1 INITIAL HEPARIN DRIP RATE: 1400 UNITS/HR MILIND HOWELL READ BACK BOLUS DOSE = 6200 UNITS IVP X1 THEN HEPARIN DRIP RATE 1400 UNITS/HR (MILIND HOWELL DOES NOT START HEPARIN DRIP YET) MARCIN Hong Sep 25, 2024 18:45
[2024-09-25] MEDS: HEPARIN DRIP/D5W 100UNITS/ML 250 ML IV SCH (19:10)
--- NOTE | 2024-09-25 19:13 | DVHPNRES ---
Progress Note Date Seen: Sep 25, 2024 Resident Creating Document: [address] RESIDENT Has the PT tested + for MRSA If YES, has PT been informed?: No Medical Necessity Reason Pt with a Central, PICC or Fol: No (mid line) The following are medically ne: PICC Line, Delgado Catheter Medical Necessity Reason Patient seen and examined today. Not much different. She remains on bipap and currently get her nutrition (TPN) via picc. The family plans to go to [facility] hospice when it is feasible. The family wants PEG tube patient needs to be off bipap to have the peg tube. If that is the plan, the patient would need to be intubated. Also, patient's right arm was swollen. US of the right upper extremity showed a Thrombus in the brachial vein. Patient Hgb has been 6.8 today.She received I unit of PRBC. Platelets 98. She received 1 unit and her hgb improved to 9.3 and platelet at 112. For the acute DVT, will start patient on heparin protocol and discontinue levonox. telephone services sales representative called hospice and they cannot accept the patient with the TPN. Objective vital signs Vital Sign Date Time Temp Pulse Resp B/P (MAP) Pulse Ox O2 Delivery O2 Flow Rate FiO2 09/25/24 16:26 71 121/19 95 Nasal BiPAP Mask 50 09/25/24 16:15 13 09/25/24 16:00 99.5 99.5 Total Intake and Output 09/24/24 09/24/24 09/25/24 15:00 23:00 07:00 Intake Total 567.28 ml 426.28 ml 617.28 ml Output Total 850 ml 680 ml Balance 567.28 ml -423.72 ml -62.72 ml medications Current Medications Medications Dose Ordered Sig/Miranda Route Start Time Stop Time Status Last Admin Dose Admin Nitroglycerin 0.4 mg Q5MINP PRN SL 09/11/24 00:30 Atorvastatin Calcium 40 mg HS NG 09/11/24 01:30 09/22/24 20:25 40 MG Levothyroxine Sodium 100 mcg DAILY IV 09/12/24 10:00 09/25/24 10:55 100 MCG Ipratropium [place] 0.5 mg Q6HWA PRN NEB 09/13/24 03:00 09/21/24 15:56 0.5 MG Levalbuterol HCl 0.625 mg Q6HWA PRN NEB 09/13/24 03:15 09/21/24 15:56 0.625 MG Trazodone HCl 50 mg HS PO 09/15/24 23:45 09/22/24 20:25 50 MG Levalbuterol HCl 0.625 mg Q6HR NEB 09/16/24 12:00 09/25/24 18:42 0.625 MG Ipratropium [place] 0.5 mg Q6HR NEB 09/16/24 12:00 09/25/24 18:42 0.5 MG Phenylephrine HCl 250 ml @ 30 mls/hr Q8H20M IV 09/17/24 00:45 09/17/24 01:06 30 MLS/HR Diagnostic Test (Pha) 1 strip Q6HR 09/20/24 00:00 09/25/24 12:27 1 STRIP Insulin Human Regular FOLLOW SLIDING SCALE Q6HR SC 09/20/24 00:00 09/25/24 00:31 2 UNITS Dextrose 50 ml UD IV 09/20/24 00:00 Sodium Chloride 10 ml QSHIFT@10,22 IV 09/19/24 22:00 09/25/24 10:56 10 ML Amino Acids 0 ml @ 0 mls/hr PER PHARMACY IV 09/20/24 16:15 Furosemide 20 mg BIDD IV 09/20/24 18:00 09/25/24 05:38 20 MG Pantoprazole Sodium 40 mg BID IV 09/22/24 10:00 09/25/24 10:56 40 MG Acetaminophen 650 mg Q6HP PRN [place] 09/22/24 11:15 09/22/24 17:35 650 MG Morphine Sulfate 2 mg Q1HP PRN IV 09/24/24 10:00 09/25/24 14:58 2 MG Fat Emulsion Intravenous 150 ml/Potassium Acetate 50 meq/ Potassium Phosphate 30 meq/ Calcium Gluconate 4.65 meq/ Magnesium Sulfate 10 meq/ Multivitamins 10 ml/Chromium/ Copper/Manganese/ Zinc 1 ml/Amino Acids/Dextrose 1,155.3182 ml @ 48 mls/hr Q24H5M IV 09/24/24 22:00 09/25/24 21:59 09/24/24 21:46 48 MLS/HR Fat Emulsion Intravenous 150 ml/Potassium Acetate 40 meq/ Potassium Phosphate 35 meq/ Calcium Gluconate 3.5 meq/Magnesium Sulfate 10 meq/ Multivitamins 10 ml/Chromium/ Copper/Manganese/ Zinc 1 ml/Amino Acids/Amino Acids 1,098.9813 ml @ 46 mls/hr [id number] IV 09/25/24 22:00 09/26/24 21:59 Cancel Fat Emulsion Intravenous 150 ml/Potassium Acetate 40 meq/ Potassium Phosphate 35 meq/ Calcium Gluconate 3.5 meq/Magnesium Sulfate 10 meq/ Multivitamins 10 ml/Chromium/ Copper/Manganese/ Zinc 1 ml/ Dextrose/Amino Acids 1,098.9813 ml @ 46 mls/hr [id number] IV 09/25/24 22:00 09/26/24 21:59 Lorazepam 1 mg Q1H PRN IV 09/25/24 17:15 09/25/24 17:54 1 MG Heparin Sodium/ Dextrose 250 ml @ 14 mls/hr [id number] IV 09/25/24 17:15 Examination General Appearance:awake but in distress, she has been crying on the bipap HEENT: Atraumatic, Respiratory: coarse breath sound, more rhonchi on R, same as before Cardiovascular: tachycardia, Normal S1, Normal S2, No murmurs, no chest wall tenderness Abdominal: NO distention, no tenderness, bowel sounds present, no scars noted Extremities: left sided hemiplegic, right sided hemiparesis and swollen Skin: Has midline on the right arm Neuro: Nodding to speech Psych/Mental Status: stable laboratory and microbiology Laboratory Tests 09/25/24 17:38 09/25/24 03:02 Test 09/25/24 03:02 Range/Units Serum Glucose 122 H 74-106 mg/dL Microbiology Date/Time Source Procedure Growth Status 09/14/24 01:41 Blood Blood Culture - Final NO GROWTH AFTER 5 DAYS OF INCUBATION. Complete 09/11/24 00:41 Nose MRSA Screen - Final Complete 09/11/24 00:41 Voided Urine Urine Culture - Final Yeast, not Viridiana albicans Complete 09/11/24 00:31 Sputum Gram Stain - Final Complete 09/11/24 00:31 Respiratory Culture - Final Staphylococcus aureus Complete Problem List/Assessment/Plan Problem List/Assessment/Plan Assessment and plan NEUROLOGY: Right sided hemiparesis likely repeated stroke leading to right hemiparesis with speech difficulty. ? Recurrent strokes despite on anticoagulation History of massive CVA with left sided hemiplegic Insomnia on as needed trazodone CARDIOVASCULAR: Paroxysmal atrial fibrillation with secondary hypercoagulable state Status post dual-chamber pacemaker Abott MRI friendly a-sensed v-paced Hypertensive heart disease, LVH: LVEF 65%. Mild LVH mild LV diastolic dysfunction Type II demand mediated NSTEMI, telemetry with conservative management Carotid stenosis ruled out: Bilateral carotid duplex from 06/30/2024 revealed no hemodynamically significant stenosis noted in the bilateral carotid system. Wide QRS, low voltage RBBB Lower risk of significant coronary artery disease: Nuclear stress test from 05/24/2023 revealed ECG findings negative for ischemia and nuclear findings negative for ischemia CT Chest 09/14: Mild cardiomegaly with coronary artery disease. [id number] atherosclerotic vascular disease. on Aspirin, naomie Obtained Echo result pending Amiodarine drip since 09/15 RESPIRATORY: Aspiration pneumonia likely due to bulbar function B/l pneumonia gram +ve / gram -ve / atypicals Acute hypoxic respiratory failure on 6 L oxygen Pleural effusion ARDS due to possible aspiration pneumonitis Recurrent desaturation BIPAP continued ( 09/17/2025) Lung very coarse; give acetylcysteine 10% q6hrs - CT chest 09/14: Consolidations with air bronchograms in the bilateral lower lobes with evidence of mucus plugging, suspicious for aspiration. Patchy ground glass opacities in the upper lobes bilaterally, likely infectious or inflammatory in nature. X-ray( 09/14/2024) : Interval worsening of right upper lobe pneumonia. Stop IV fluid Continue Zosyn 4L oxygen NC Sputum culture: No growth GASTROINTESTINAL Failed swallow evaluation GERD with gastritis Protonix TPN should start today 09/21/2024 Moderate Malnutrition Plan GI consult for PEG; Per GI, it not feasible given patient's intermittent respiratory distress Lactulose discontinued METABOLIC Dyslipidemia Severe hypokalemia resolved obesity grade 1 replenish electrolytes GENITOURINARY Acute complicated cystitis, Yeast positive, No albicans Chronic hypothyroidism CAROLYN due to VMN ( baseline 0.87) fluconazoles: Stopped HEMATOLOGY Chronic macrocytic + iron deficient mixed anemia Monitor H& H closely and transfuse if hgb< 7 Coagulopathy- improved DVT right upper extremity 09/25/2024 - Heparin bolus and drip - Monitor labs closely ENDOCRINE Hypothyroidism acute on chronic likely due to medication indiscretion Give levothyroxine 100mcg INFECTIOUS DISEASE Severe sepsis with Septic shock Likely sepsis in the setting of aspiration pneumonia MRSA screen negative Continue zosyn; ( fluconazole , stopped 09/20/2024) Levophed -resumed 09/13/2024, Stopped being on it intermittently, prn) PICC line for IV antibiotics; unable to obtain 09/14/2024 PICC line trial today 09/18/2024 SKIN Decubitus ulcer high risk Completely bed bound at home. Others History of Breast cancer- outpatient follow up IV access Central line: right sided IJV: double lumen 09/10/2024; discontinued 09/12/2024 Midline: right upper arm 09/12/2024 PICC LINE: 09/19/2024 Diet: TPN today 09/21/2024 Morphine 2mg q1hr Ativan: 2mg q1hr Drips: Levophed RESUME 09/13/2024 due to hypotension; Held 09/15/[address] 09/10/2024 DVT prophylaxis: already on Lovenox prophylactic, low hgb GI prophylaxis: Protonix bid Diet: Jevity, stopped 09/15/2024 Disposition: ICU status Goal of care: [facility]; Code is modified code ( Chemical code) Critical care time 30 minutes, Advance care planning patient, daughter and Plan discussed with Dr. Prieto Plan discussed with: Patient, Spouse, Daughter My Orders My Orders Orders - [address] RESIDENT Procedure Category Date Status Time Comprehensive LAB 09/26/24 Verified Metabolic Panel 04:00 Magnesium LAB 09/26/24 Verified 04:00 Phosphorus LAB 09/26/24 Verified 04:00 Tpn Per Pharmacy [facility] 09/25/24 In Process 22:00 Abg W/ Co-Ox RT 09/25/24 Logged 10:47 Dextrose (Dextrose... [facility] 09/25/24 In Process W/Fat Emulsion... 22:00 Pharmacy [facility] 09/25/24 In Process Clarification: 15:00 Lorazepam 2mg/Ml Inj [facility] 09/25/24 In Process (Ativan Inj) 17:15 Platelet Monitoring [facility] 09/25/24 In Process 17:08 Vte Protocol Initiated [facility] 09/25/24 In Process 17:08 Heparin Per [facility] 09/25/24 In Process Standardized Proce 17:08 Discontinue All Im [facility] 09/25/24 In Process Injections 17:08 Heparin Drip/D5w [facility] 09/25/24 In Process 100units/Ml 17:15 Heparin Protocol [facility] 09/25/24 In Process 18:31 Dietary Evaluation Review Comments: Cardiac Diet, iron supplementation. Follow up with nephrology consult Expected Outcomes/Goals: Gradual wt loss, improved nutrition related lab values. Date of Service: Sep 25, 2024 Billing Provider: NICK PRIETO MD Common Visit Codes: NOT BILLABLE [address] RESIDENT Sep 25, 2024 19:13 NICK PRIETO MD Sep 26, 2024 13:58
[2024-09-25] MEDS: HEPARIN SODIUM (PORCINE) 5000 UNITS/ML 1ML VIAL IV ONE (19:16)
--- NOTE | 2024-09-25 19:51 | CONS ---
Pharmacy Clinical Information: HEPARIN DRIP 1400 UNITS/HR STARTED @09/25 PER RX PROTOCOL. NEXT APTT NOMI @09/26 bolus already given 6200 units repeated order per breanna jang at 14 ml/hr JAMEY CAICEDO PHARMACIST Sep 25, 2024 19:51
--- NOTE | 2024-09-25 21:01 | DVHPN ---
DATE: 09/25/2024 GASTROENTEROLOGY PROGRESS NOTE SUBJECTIVE: The patient is examined. The patient is currently on BiPAP. The patient's daughter is at bedside. The patient apparently was doing well on 30% FiO2, but O2 requirements have increased. The patient also underwent a venous duplex of the upper extremities that revealed a thrombus in the brachial vein for which she will be started on heparin therapy. Chest x-ray obtained today continues to show small bilateral pleural effusions and mild bibasilar mixed opacities. I did review this case with Pulmonology attending, Dr. Miles, who stated that respiratory status remains poor and there was very low chance of possible improvement. PHYSICAL EXAMINATION: VITAL SIGNS: Temperature 99.5, heart rate 71, respirations 19, blood pressure ____, O2 saturation 95% on 50% BiPAP, IPAP of 20, EPAP of 10. GENERAL: This is an ill 73-year-old female. She is very lethargic, currently on the BiPAP mask. GASTROINTESTINAL: Obese, otherwise soft, nontender, and nondistended. EXTREMITIES: No clubbing, no cyanosis, 1-2+ pitting edema. LABORATORY EVALUATION: White blood cell count 8.1, hemoglobin today is 6.8, hematocrit 19.7, MCV 93.3, platelet count of 98,000. Sodium 151, potassium 3.4, chloride 111, bicarbonate is 30, BUN 58, creatinine 0.71, blood glucose is 122, phosphorus 2.6, magnesium 2.2, bilirubin 0.4, AST 69, ALT 73, alkaline phosphatase 91, protein 5.0. ASSESSMENT: * Malnourishment and feeding difficulty. Again, the patient is currently not a candidate for endoscopic G-tube placement due to her compromised respiratory status. * Normocytic anemia, status post blood transfusion. * Acute hypoxic respiratory failure, currently on BiPAP. * Pleural effusion. * Sepsis. * History of prior CVA. RECOMMENDATIONS: * Reviewed case with Pulmonary Medicine. Prognosis for respiratory recovery is very poor. * The patient will be started on anticoagulation for brachial vein thrombus. * The patient will continue on TPN. * Discussed plan extensively with the patient's daughter at bedside, who will discuss with the patient whether she wishes to be intubated. Options would include tracheostomy and G-tube placement for LTAC placement versus compassionate extubation. The patient's family has not come to that decision as of yet. We will continue to monitor her course. DO SIM Child/SANCHEZ/JEANIE TID: [id number] RECEIPT: [id number]
[2024-09-25] MEDS: TPN PER PHARMACY IV NR (21:53)
[2024-09-25] MEDS ORDERED: TPN PER PHARMACY IV NR (22:00)
[2024-09-26] VITALS (99 sets, daily range): BP systolic 101–153; BP diastolic 13–70; PULSE 70–125; RESP 14–32; TEMP 98.9–100.3; O2SAT 10–100
[2024-09-26 01:31] LABS: Basophils # (auto) 0 10 ^3/uL (0-0.2); Basophils % (auto) 0.3 % (0.0-2.0); Eosinophils # (auto) 0.2 10 ^3/uL (0-0.8); Eosinophils % (auto) 2.7 % (0.0-7.0); Hematocrit 28.4 % (36.0-46.0); Hemoglobin 9.5 g/dL (12.2-16.2); Lymphocytes # (auto) 0.7 10 ^3/uL (0.4-5.4); Lymphocytes % (auto) 9.2 % (10.0-50.0); Mean Corpuscular Hemoglobin 31.1 pg (28.0-32.0); Mean Corpuscular Hgb Conc. 33.6 g/dL (32.0-36.0); Mean Corpuscular Volume 92.6 fL (80.0-100.0); Monocytes # (auto) 0.5 10 ^3/uL (0-1.3); Monocytes % (auto) 6.1 % (0.0-12.0); Neutrophils # (auto) 6.5 10 ^3/uL (1.6-8.6); Neutrophils % (auto) 81.7 % (37.0-80.0); Platelet Count (auto) 111 10^3/uL (140-450); Red Blood Cells 3.07 10^6/uL (4.0-5.20); Red Cell Distribution Width 17.4 % (11.8-14.3); White Blood Cell 7.9 10^3/uL (4.4-10.8)
[2024-09-26 01:48] LABS: Alkaline Phosphatase 102 U/L (46-116); Anion Gap 10 (5-15); Carbon Dioxide 30 mmol/L (20-31); Magnesium 2.3 mg/dL (1.6-2.6); Potassium 4.1 mmol/L (3.5-5.1)
[2024-09-26 01:49] LABS: Bilirubin, Total 0.3 mg/dL (0.2-1.0); Phosphorus 3.1 mg/dL (2.4-5.1)
[2024-09-26 02:02] LABS: Alanine Aminotransferase 82 U/L (7-40); Aspartate Aminotransferase 68 U/L (<34); Blood Urea Nitrogen 52 mg/dL (9-23); Calcium 8.3 mg/dL (8.7-10.4); Chloride 110 mmol/L (98-107); Glucose 124 mg/dL (74-106); Sodium 150 mmol/L (136-145); Total Protein 5.5 g/dL (5.7-8.2)
[2024-09-26 02:07] LABS: INR 1.13 (0.9-1.15); Prothrombin Time 11.8 sec (9.3-11.8)
[2024-09-26 02:08] LABS: Partial Thromboplastin Time > 139.0 SEC (24.5-34.5)
--- NOTE | 2024-09-26 05:31 | DVH ---
EXAM: XY CHEST XRAY 1 VIEW Indication: aspiration pneumonia Technique: Single frontal view of the chest was obtained Comparison: XY CHEST XRAY 1 VIEW on DOS: 09/24/24, XY CHEST XRAY 1 VIEW on DOS: 09/23/24, XY CHEST XRAY 1 VIEW on DOS: 09/22/24, XY CHEST PORTABLE on DOS: 09/21/24, XY CHEST XRAY 1 VIEW on DOS: 09/20/24 FINDINGS: Lines and Tubes: Cardiac pacemaker projects over the left chest wall. Lungs: Low lung volumes with bibasilar opacities. Pleura: No effusion. No pneumothorax. Cardiomediastinal contours: Unremarkable Bones: No acute osseous abnormality. IMPRESSION: Low lung volumes with bibasilar opacities.
[2024-09-26 10:16] LABS: INR 1.11 (0.9-1.15); Prothrombin Time 11.6 sec (9.3-11.8)
--- NOTE | 2024-09-26 10:46 | DVHPN2 ---
Progress Note - Dictate Date Seen: Sep 26, 2024 Has the PT tested + for MRSA If YES, has PT been informed?: No Medical Necessity Reason Pt with a Central, PICC or Fol: No (mid line) The following are medically ne: PICC Line, Delgado Catheter Subjective Ms. Posada is a 73 years old right-handed female with a history of hypertension, atrial fibrillation, breast cancer, kidney stone, the patient was came to the hospital on 09/11/2024 with a chief company of shortness breath, general weakness, and the patient was found to have pneumonia, respiratory failure, hypotension, and the patient was admitted to ICU, the patient was also has other problems I have seen and examined the patient, is in the room, I have talked to her nurse. She is on BiPAP, awake, looks slightly stronger than yesterday,, she open her eyes, looking loud, she may tried to follow my verbal commands, but not able to move extremities extremities Blood culture, 09/11/2024: WBC/HB/PLT/MCV, 09/11/2024: 8.5/9.9/225/99.5 PTT/INR/ABG, 09/11/2024: 13.5/1.3/45.9 Na, 10/02/24: 144, 09/16/24: 146, 09/18/24: 153, 09/20/2024:, 151 09/24/2024: 152 HCO3, 09/11/2024:19 BUN/CR, 09/11/2024: 30/1.16 HGB A1c, 07/12/2019 5:4.5 Liver function tests, 09/11/2024: Unremarkable TG/HDL/LDL/HDL, 07/14/2024: 89/110/59/26 Vitamin B12, 07/2019 5:1114 Folic acid, 07/2024: 0.9 TSH, 09/11/2024: 15.09 Echocardiogram, 09/14/2024: Technically difficult study. Difficult acoustic windows. Patient is uncooperative. From the limited views obtained there appears to be an underlying sinus tachycardia. There is [id number] mitral annular calcification however good excursion of the mitral leaflets. The aortic tricuspid and pulmonic or within normal limits. Left ventricular function is preserved at 60% with normal RV function. Dopplers unremarkable. No pericardial effusion masses or vegetations. Extremity venous study, right arm 09/25/2024: Thrombus in the brachial vein Carotid Doppler, 06/30/24: No hemodynamically significant stenosis noted in the right carotid system. No hemodynamically significant stenosis noted in the left carotid system Carotid Doppler, 09/12/2024: No hemodynamically significant stenosis noted in the left carotid system. Chest x-ray, 09/11/2024: 1. Appropriate position of the support lines and tubes. 2. Bilateral pleural effusions. Chest X-ry, 09/18/2024: Cardiomegaly with pulmonary congestion and edema. Superimposed pneumonia cannot be excluded. Check X-ray, 09/19/2024: Cardiomegaly with mild congestion. Chest X-ray, 09/24/2024: 1. Mild bibasilar mixed opacities, greater on the right which could reflect pneumonia or atelectasis. This appears improved since prior. 2. Small bilateral pleural effusions. MRI head, 09/13/2024: 1. Limited stroke protocol. Limited by motion.2. No evidence of acute infarction, intracranial hemorrhage, mass effect or hydrocephalus. 3. Old right MCA infarct. Consider follow-up exam when patient is able to tolerate vital signs Vital Sign Date Time Temp Pulse Resp B/P (MAP) Pulse Ox O2 Delivery O2 Flow Rate FiO2 09/26/24 10:05 73 131/33 100 Facial BiPAP Mask 50 09/26/24 09:06 18 09/26/24 08:00 100.3 100.3 Total Intake and Output 09/25/24 09/25/24 09/26/24 15:00 23:00 07:00 Intake Total 1371.78 ml 805.78 ml 521.62 ml Output Total 975 ml 1000 ml Balance 1371.78 ml -169.22 ml -478.38 ml medications Current Medications Medications Dose Ordered Sig/Miranda Route Start Time Stop Time Status Last Admin Dose Admin Nitroglycerin 0.4 mg Q5MINP PRN SL 09/11/24 00:30 Atorvastatin Calcium 40 mg HS NG 09/11/24 01:30 09/22/24 20:25 40 MG Levothyroxine Sodium 100 mcg DAILY IV 09/12/24 10:00 09/26/24 09:55 100 MCG Ipratropium [place] 0.5 mg Q6HWA PRN NEB 09/13/24 03:00 09/21/24 15:56 0.5 MG Levalbuterol HCl 0.625 mg Q6HWA PRN NEB 09/13/24 03:15 09/21/24 15:56 0.625 MG Trazodone HCl 50 mg HS PO 09/15/24 23:45 09/22/24 20:25 50 MG Levalbuterol HCl 0.625 mg Q6HR NEB 09/16/24 12:00 09/26/24 06:39 0.625 MG Ipratropium [place] 0.5 mg Q6HR NEB 09/16/24 12:00 09/26/24 06:39 0.5 MG Phenylephrine HCl 250 ml @ 30 mls/hr Q8H20M IV 09/17/24 00:45 09/17/24 01:06 30 MLS/HR Diagnostic Test (Pha) 1 strip Q6HR 09/20/24 00:00 09/26/24 06:00 1 STRIP Insulin Human Regular FOLLOW SLIDING SCALE Q6HR SC 09/20/24 00:00 09/25/24 00:31 2 UNITS Dextrose 50 ml UD IV 09/20/24 00:00 Sodium Chloride 10 ml QSHIFT@10,22 IV 09/19/24 22:00 09/26/24 09:55 10 ML Amino Acids 0 ml @ 0 mls/hr PER PHARMACY IV 09/20/24 16:15 Furosemide 20 mg BIDD IV 09/20/24 18:00 09/26/24 05:45 20 MG Pantoprazole Sodium 40 mg BID IV 09/22/24 10:00 09/26/24 09:55 40 MG Acetaminophen 650 mg Q6HP PRN [place] 09/22/24 11:15 09/22/24 17:35 650 MG Morphine Sulfate 2 mg Q1HP PRN IV 09/24/24 10:00 09/26/24 08:36 2 MG Fat Emulsion Intravenous 150 ml/Potassium Acetate 40 meq/ Potassium Phosphate 35 meq/ Calcium Gluconate 3.5 meq/Magnesium Sulfate 10 meq/ Multivitamins 10 ml/Chromium/ Copper/Manganese/ Zinc 1 ml/Amino Acids/Amino Acids 1,098.9813 ml @ 46 mls/hr [id number] IV 09/25/24 22:00 09/26/24 21:59 Cancel Fat Emulsion Intravenous 150 ml/Potassium Acetate 40 meq/ Potassium Phosphate 35 meq/ Calcium Gluconate 3.5 meq/Magnesium Sulfate 10 meq/ Multivitamins 10 ml/Chromium/ Copper/Manganese/ Zinc 1 ml/ Dextrose/Amino Acids 1,098.9813 ml @ 46 mls/hr [id number] IV 09/25/24 22:00 09/26/24 21:59 09/25/24 21:53 46 MLS/HR Lorazepam 1 mg Q1H PRN IV 09/25/24 17:15 09/26/24 05:48 1 MG Heparin Sodium/ Dextrose 250 ml @ 14 mls/hr [id number] IV 09/25/24 17:15 09/25/24 19:10 14 MLS/HR Fat Emulsion Intravenous 150 ml/Potassium Acetate 30 meq/ Potassium Phosphate 11 meq/ Calcium Gluconate 2.3 meq/Magnesium Sulfate 8 meq/ Multivitamins 10 ml/Chromium/ Copper/Manganese/ Zinc 1 ml/ Dextrose/Amino Acids 1,085.4462 ml @ 45 mls/hr Q24H8M IV 09/26/24 22:00 09/27/24 21:59 objective General: the patient is well developed and nourished. No acute distress. MENTAL STATUS: Subjective SPEECH, LANGUAGE, HIGHER CORTICAL FUNCTION: Subjective CRANIAL NERVES: Pupils are equal, round and reactive. EOMs full and conjugate. Facial sensation intact in all three divisions bilaterally. Mandibular strength intact. Facial muscles symmetrical and strength intact. SENSATION: Sensation to touch and pinprick is finel. MOTOR: Normal tone in the upper and lower extremity. Normal muscle bulk. No fasciculations. No abnormal movements or posturing. He does not move the extremities REFLEXES: Deep tendon reflexes normal and symmetrical. No pathological reflexes. CEREBELLAR/COORDINATION: Deferred GAIT/STATION: deferred. laboratory and microbiology Laboratory Tests 09/26/24 01:17 Test 09/26/24 01:17 Range/Units Serum Glucose 124 H 74-106 mg/dL Problem List Acute respiratory failure secondary to pneumonia Pneumonia/respiratory failure ? Aspiration Right sided weakness in 07/2024, rule out acute stroke Chronic stroke with residual left-sided hemiparesis Atrial fibrillation Coagulopathy Status post PICC line Anemia Hyponatremia DVT in the right upper extremity Assessment/Plan Monitoring Supportive treatment Follow-up lab ICU care Stabilize vitals Respiratory support/BiPAP Oxygen Lovenox 40 mg subQ daily for now Lipitor 40 mg daily Heparin TPN GI prophylaxis Feeding tube once patient is more stabilized More recommendation per clinical course This medical document was created using an electronic medical record system with [employer] dictation system. Although this document has been carefully reviewed, there may still be some phonetic and typographical errors. These areas are purely typographical due to imperfections of the software programs, and do not reflect any compromise in the patient's medical care. Prognosis poor, critical Dietary Evaluation Review Comments: Cardiac Diet, iron supplementation. Follow up with nephrology consult Expected Outcomes/Goals: Gradual wt loss, improved nutrition related lab values. Plan discussed with: Spouse, Other MARY RAMIREZ MD Sep 26, 2024 10:46
[2024-09-26 13:51] LABS: INR 1.07 (0.9-1.15); Prothrombin Time 11.3 sec (9.3-11.8)
[2024-09-26 13:52] LABS: Partial Thromboplastin Time > 139.0 SEC (24.5-34.5)
[2024-09-26] MEDS: HEPARIN DRIP/D5W 100UNITS/ML 250 ML IV SCH (15:00)
--- NOTE | 2024-09-26 15:23 | CONS ---
Pharmacy Clinical Information: HEPARIN PER PHARMACY PROTOCOL PREVIOUS RATE 1100UNITS/HR PREVIOUS APTT @1304: >139 (LATE DUE TO MACHINE NOT BEING ABLE TO READ THE NUMBERS, PER LAB) HEPARIN DRIP HELD AT 1400 AND RESTARTED AT 1500 AT RATE 800 UNITS/HR NEXT APTT DRAW @2100 MIKAYLA STARK PHARMACIST Sep 26, 2024 15:23
--- NOTE | 2024-09-26 19:16 | DVHPNRES ---
Progress Note Date Seen: Sep 26, 2024 Resident Creating Document: [address] RESIDENT Has the PT tested + for MRSA If YES, has PT been informed?: No Medical Necessity Reason Pt with a Central, PICC or Fol: No (mid line) The following are medically ne: PICC Line, Delgado Catheter Medical Necessity Reason Patient is the same. On bipap. Family is considering intubation and the tracheostomy after that patient can get the peg and then go to LTAC. The current hospice does not accept the TPN that she is on. Coagulation studies showed APTT 139. Subjective Review of Systems sleeping Objective vital signs Vital Sign Date Time Temp Pulse Resp B/P (MAP) Pulse Ox O2 Delivery O2 Flow Rate FiO2 09/26/24 18:30 71 21 127/26 (59) 98 09/26/24 18:22 Facial BiPAP Mask 30 09/26/24 16:00 100.0 100.0 Total Intake and Output 09/25/24 09/25/24 09/26/24 15:00 23:00 07:00 Intake Total 1371.78 ml 805.78 ml 521.62 ml Output Total 975 ml 1000 ml Balance 1371.78 ml -169.22 ml -478.38 ml medications Current Medications Medications Dose Ordered Sig/Miranda Route Start Time Stop Time Status Last Admin Dose Admin Nitroglycerin 0.4 mg Q5MINP PRN SL 09/11/24 00:30 Atorvastatin Calcium 40 mg HS NG 09/11/24 01:30 09/22/24 20:25 40 MG Levothyroxine Sodium 100 mcg DAILY IV 09/12/24 10:00 09/26/24 09:55 100 MCG Ipratropium [place] 0.5 mg Q6HWA PRN NEB 09/13/24 03:00 09/21/24 15:56 0.5 MG Levalbuterol HCl 0.625 mg Q6HWA PRN NEB 09/13/24 03:15 09/21/24 15:56 0.625 MG Trazodone HCl 50 mg HS PO 09/15/24 23:45 09/22/24 20:25 50 MG Levalbuterol HCl 0.625 mg Q6HR NEB 09/16/24 12:00 09/26/24 18:22 0.625 MG Ipratropium [place] 0.5 mg Q6HR NEB 09/16/24 12:00 09/26/24 18:22 0.5 MG Phenylephrine HCl 250 ml @ 30 mls/hr Q8H20M IV 09/17/24 00:45 09/17/24 01:06 30 MLS/HR Diagnostic Test (Pha) 1 strip Q6HR 09/20/24 00:00 09/26/24 18:26 1 STRIP Insulin Human Regular FOLLOW SLIDING SCALE Q6HR SC 09/20/24 00:00 09/25/24 00:31 2 UNITS Dextrose 50 ml UD IV 09/20/24 00:00 Sodium Chloride 10 ml QSHIFT@10,22 IV 09/19/24 22:00 09/26/24 09:55 10 ML Amino Acids 0 ml @ 0 mls/hr PER PHARMACY IV 09/20/24 16:15 Furosemide 20 mg BIDD IV 09/20/24 18:00 09/26/24 18:25 20 MG Pantoprazole Sodium 40 mg BID IV 09/22/24 10:00 09/26/24 09:55 40 MG Acetaminophen 650 mg Q6HP PRN MS 09/22/24 11:15 09/22/24 17:35 650 MG Morphine Sulfate 2 mg Q1HP PRN IV 09/24/24 10:00 09/26/24 17:16 2 MG Fat Emulsion Intravenous 150 ml/Potassium Acetate 40 meq/ Potassium Phosphate 35 meq/ Calcium Gluconate 3.5 meq/Magnesium Sulfate 10 meq/ Multivitamins 10 ml/Chromium/ Copper/Manganese/ Zinc 1 ml/Amino Acids/Amino Acids 1,098.9813 ml @ 46 mls/hr [id number] IV 09/25/24 22:00 09/26/24 21:59 Cancel Fat Emulsion Intravenous 150 ml/Potassium Acetate 40 meq/ Potassium Phosphate 35 meq/ Calcium Gluconate 3.5 meq/Magnesium Sulfate 10 meq/ Multivitamins 10 ml/Chromium/ Copper/Manganese/ Zinc 1 ml/ Dextrose/Amino Acids 1,098.9813 ml @ 46 mls/hr [id number] IV 09/25/24 22:00 09/26/24 21:59 09/25/24 21:53 46 MLS/HR Lorazepam 1 mg Q1H PRN IV 09/25/24 17:15 09/26/24 05:48 1 MG Fat Emulsion Intravenous 150 ml/Potassium Acetate 30 meq/ Potassium Phosphate 11 meq/ Calcium Gluconate 2.3 meq/Magnesium Sulfate 8 meq/ Multivitamins 10 ml/Chromium/ Copper/Manganese/ Zinc 1 ml/ Dextrose/Amino Acids 1,085.4462 ml @ 45 mls/hr Q24H8M IV 09/26/24 22:00 09/27/24 21:59 Heparin Sodium/ Dextrose 250 ml @ 8 mls/hr Q24H IV 09/26/24 15:00 09/26/24 15:00 8 MLS/HR Examination General Appearance:awake but in distress, she has been crying on the bipap HEENT: Atraumatic, Respiratory: coarse breath sound, more rhonchi on R, same as before Cardiovascular: tachycardia, Normal S1, Normal S2, No murmurs, no chest wall tenderness Abdominal: NO distention, no tenderness, bowel sounds present, no scars noted Extremities: left sided hemiplegic, right sided hemiparesis and swollen Skin: Has midline on the right arm Neuro: Nodding to speech Psych/Mental Status: stable laboratory and microbiology Laboratory Tests 09/26/24 01:17 Test 09/26/24 01:17 Range/Units Serum Glucose 124 H 74-106 mg/dL Microbiology Date/Time Source Procedure Growth Status 09/14/24 01:41 Blood Blood Culture - Final NO GROWTH AFTER 5 DAYS OF INCUBATION. Complete 09/11/24 00:41 Nose MRSA Screen - Final Complete 09/11/24 00:41 Voided Urine Urine Culture - Final Yeast, not Viridiana albicans Complete 09/11/24 00:31 Sputum Gram Stain - Final Complete 09/11/24 00:31 Respiratory Culture - Final Staphylococcus aureus Complete Problem List/Assessment/Plan Problem List/Assessment/Plan Assessment and plan NEUROLOGY: Right sided hemiparesis likely repeated stroke leading to right hemiparesis with speech difficulty. ? Recurrent strokes despite on anticoagulation History of massive CVA with left sided hemiplegic Insomnia on as needed trazodone CARDIOVASCULAR: Paroxysmal atrial fibrillation with secondary hypercoagulable state Status post dual-chamber pacemaker Abott MRI friendly a-sensed v-paced Hypertensive heart disease, LVH: LVEF 65%. Mild LVH mild LV diastolic dysfunction Type II demand mediated NSTEMI, telemetry with conservative management Carotid stenosis ruled out: Bilateral carotid duplex from 06/30/2024 revealed no hemodynamically significant stenosis noted in the bilateral carotid system. Wide QRS, low voltage RBBB Lower risk of significant coronary artery disease: Nuclear stress test from 05/24/2023 revealed ECG findings negative for ischemia and nuclear findings negative for ischemia CT Chest 09/14: Mild cardiomegaly with coronary artery disease. [id number] atherosclerotic vascular disease. on Aspirin, naomie Obtained Echo result pending Amiodarine drip since 09/15 RESPIRATORY: Aspiration pneumonia likely due to bulbar function B/l pneumonia gram +ve / gram -ve / atypicals Acute hypoxic respiratory failure on 6 L oxygen Pleural effusion ARDS due to possible aspiration pneumonitis Recurrent desaturation BIPAP continued ( 09/17/2025) Lung very coarse; give acetylcysteine 10% q6hrs - CT chest 09/14: Consolidations with air bronchograms in the bilateral lower lobes with evidence of mucus plugging, suspicious for aspiration. Patchy ground glass opacities in the upper lobes bilaterally, likely infectious or inflammatory in nature. X-ray( 09/14/2024) : Interval worsening of right upper lobe pneumonia. Stop IV fluid Continue Zosyn 4L oxygen NC Sputum culture: No growth GASTROINTESTINAL Failed swallow evaluation GERD with gastritis Protonix TPN should start today 09/21/2024 Moderate Malnutrition Plan GI consult for PEG; Per GI, it not feasible given patient's intermittent respiratory distress Lactulose discontinued METABOLIC Dyslipidemia Severe hypokalemia resolved obesity grade 1 replenish electrolytes GENITOURINARY Acute complicated cystitis, Yeast positive, No albicans Chronic hypothyroidism CAROLYN due to VMN ( baseline 0.87) fluconazoles: Stopped HEMATOLOGY Chronic macrocytic + iron deficient mixed anemia Monitor H& H closely and transfuse if hgb< 7 Coagulopathy- improved DVT right upper extremity 09/25/2024 - Heparin bolus and drip - Monitor labs closely ENDOCRINE Hypothyroidism acute on chronic likely due to medication indiscretion Give levothyroxine 100mcg INFECTIOUS DISEASE Severe sepsis with Septic shock Likely sepsis in the setting of aspiration pneumonia MRSA screen negative Continue zosyn; ( fluconazole , stopped 09/20/2024) Levophed -resumed 09/13/2024, Stopped being on it intermittently, prn) PICC line for IV antibiotics; unable to obtain 09/14/2024 PICC line trial today 09/18/2024 SKIN Decubitus ulcer high risk Completely bed bound at home. Others History of Breast cancer- outpatient follow up IV access Central line: right sided IJV: double lumen 09/10/2024; discontinued 09/12/2024 Midline: right upper arm 09/12/2024 PICC LINE: 09/19/2024 Diet: TPN today 09/21/2024 Morphine 2mg q1hr Ativan: 1mg q1hr PRN Drips: Levophed RESUME 09/13/2024 due to hypotension; Held 09/15/[address] 09/10/2024 DVT prophylaxis: already on Lovenox prophylactic, low hgb GI prophylaxis: Protonix bid Diet: Jevity, stopped 09/15/2024; TPN Disposition: ICU status Goal of care: [facility]; Code is modified code ( Chemical code) Critical care time 30 minutes, Advance care planning patient, daughter and Plan discussed with Dr. Prieto Plan discussed with: Spouse My Orders My Orders Orders - [address] Procedure Category Date Status Time Chest Xray 1 View XY 09/26/24 Resulted 04:00 Heparin Per Pharmacy [facility] 09/25/24 In Process Protocol 19:45 Dextrose (Dextrose... PHA 09/26/24 In Process W/Fat Emulsion... 22:00 Tpn Per Pharmacy [facility] 09/26/24 In Process 22:00 Comprehensive LAB 09/27/24 Verified Metabolic Panel 04:00 Magnesium LAB 09/27/24 Verified 04:00 Phosphorus LAB 09/27/24 Verified 04:00 Triglycerides LAB 09/27/24 Verified 04:00 Heparin Drip/D5w PHA 09/26/24 In Process 100units/Ml 15:00 Heparin Per Pharmacy [facility] 09/26/24 In Process Protocol 15:24 PTPTT LAB 09/26/24 Logged 21:00 Dietary Evaluation Review Comments: Cardiac Diet, iron supplementation. Follow up with nephrology consult Expected Outcomes/Goals: Gradual wt loss, improved nutrition related lab values. Date of Service: Sep 26, 2024 Billing Provider: NICK PRIETO MD Common Visit Codes: NOT BILLABLE [address] Sep 26, 2024 19:16 NICK PRIETO MD Oct 02, 2024 18:00
[2024-09-26] MEDS: TPN PER PHARMACY IV NR (21:40)
[2024-09-26 22:09] LABS: INR 1.02 (0.9-1.15); Partial Thromboplastin Time 52.9 SEC (24.5-34.5); Prothrombin Time 10.8 sec (9.3-11.8)
[2024-09-26 22:52] LABS: Base Excess 6.1 mmol/L (-2.0-3.0)
[2024-09-27] VITALS (113 sets, daily range): BP systolic 69–186; BP diastolic 10–92; PULSE 70–92; RESP 17–38; TEMP 97.9–100.2; O2SAT 56–100
[2024-09-27 03:39] LABS: Basophils # (auto) 0 10 ^3/uL (0-0.2); Basophils % (auto) 0.1 % (0.0-2.0); Eosinophils # (auto) 0.1 10 ^3/uL (0-0.8); Eosinophils % (auto) 2.3 % (0.0-7.0); Hematocrit 26.3 % (36.0-46.0); Hemoglobin 8.8 g/dL (12.2-16.2); Lymphocytes # (auto) 0.6 10 ^3/uL (0.4-5.4); Lymphocytes % (auto) 9.5 % (10.0-50.0); Mean Corpuscular Hemoglobin 31.3 pg (28.0-32.0); Mean Corpuscular Hgb Conc. 33.6 g/dL (32.0-36.0); Mean Corpuscular Volume 93.3 fL (80.0-100.0); Monocytes # (auto) 0.5 10 ^3/uL (0-1.3); Monocytes % (auto) 8.4 % (0.0-12.0); Neutrophils # (auto) 4.7 10 ^3/uL (1.6-8.6); Neutrophils % (auto) 79.7 % (37.0-80.0); Nucleated Red Blood Cells % 0.1 %; Platelet Count (auto) 90 10^3/uL (140-450); Red Blood Cells 2.82 10^6/uL (4.0-5.20); Red Cell Distribution Width 17.2 % (11.8-14.3); White Blood Cell 5.8 10^3/uL (4.4-10.8)
[2024-09-27 03:49] LABS: INR 1.02 (0.9-1.15); Partial Thromboplastin Time 53.8 SEC (24.5-34.5); Prothrombin Time 10.8 sec (9.3-11.8)
[2024-09-27 04:06] LABS: Alkaline Phosphatase 103 U/L (46-116); Anion Gap 7 (5-15); BUN/Creatinine Ratio 87.5 (10.0-20.0); Magnesium 2.3 mg/dL (1.6-2.6); Potassium 3.8 mmol/L (3.5-5.1)
[2024-09-27 04:07] LABS: Bilirubin, Total 0.3 mg/dL (0.2-1.0)
[2024-09-27 04:22] LABS: Alanine Aminotransferase 81 U/L (7-40); Albumin 2.8 g/dL (3.2-4.8); Aspartate Aminotransferase 61 U/L (<34); Blood Urea Nitrogen 49 mg/dL (9-23); Calcium 8.1 mg/dL (8.7-10.4); Carbon Dioxide 32 mmol/L (20-31); Chloride 108 mmol/L (98-107); Glucose 117 mg/dL (74-106); Sodium 147 mmol/L (136-145); Total Protein 5.3 g/dL (5.7-8.2)
[2024-09-27 04:41] LABS: Triglycerides 99 mg/dL (< 150)
--- NOTE | 2024-09-27 07:18 | DVHPN ---
DATE: 09/27/2024 GASTROENTEROLOGY PROGRESS NOTE SUBJECTIVE: The patient seen and examined. The patient is currently off BiPAP. Son is at bedside. Still remains very lethargic. No other acute issues noted overnight. PHYSICAL EXAMINATION: VITAL SIGNS: She is afebrile. Heart rate is 77. Respirations 26. Blood pressure 122/41. O2 saturation is 99% on BiPAP mask. GENERAL: This is a 73-year-old female. She is very lethargic appearing, nonverbal. GASTROINTESTINAL: Soft, nontender, nondistended. LABORATORY EVALUATION: White blood cell count 5.8, hemoglobin 8.8, hematocrit 26.3, MCV is 93.3, platelet count is 90,000. Basal metabolic panel: Sodium 147, potassium 3.8, chloride 108, bicarbonate 32, BUN 49, creatinine 0.56, blood glucose is 117. ALT 81, AST 61, total bilirubin 0.3, alkaline phosphatase 103. PT/PTT/INR within normal limits. IMAGING: Chest x-ray from 09/26 shows low lung volumes with bibasilar opacities. ASSESSMENT: * Malnourishment and feeding difficulty. The patient currently not a candidate for G-tube placement due to compromised respiratory status. * Normocytic anemia. * Acute hypoxic respiratory failure. * Pleural effusion. * Sepsis. * History of prior CVA. RECOMMENDATIONS: * Continue current management. 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 * Continue TPN. * We will continue to monitor respiratory status. DO GILBERTO Child TID: [id number] RECEIPT: [id number]
--- NOTE | 2024-09-27 10:01 | DVHPN2 ---
Progress Note - Dictate Date Seen: Sep 27, 2024 Has the PT tested + for MRSA If YES, has PT been informed?: No Medical Necessity Reason Pt with a Central, PICC or Fol: No (mid line) The following are medically ne: PICC Line, Delgado Catheter Subjective Ms. Posada is a 73 years old right-handed female with a history of hypertension, atrial fibrillation, breast cancer, kidney stone, the patient was came to the hospital on 09/11/2024 with a chief company of shortness breath, general weakness, and the patient was found to have pneumonia, respiratory failure, hypotension, and the patient was admitted to ICU, the patient was also has other problems I have seen and examined the patient, is in the room, I have talked to her nurse, other family member in the room. She is on BiPAP, awake, very weak When she was off BiPAP, she was a least two oriented to person, place, On heparin drip for DVT Blood culture, 09/11/2024: WBC/HB/PLT/MCV, 09/11/2024: 8.5/9.9/225/99.5 PTT/INR/ABG, 09/11/2024: 13.5/1.3/45.9, 09/26/2024: 11.3/1.07/139, 09/27/24: 10.8/1.02/53.8 Na, 10/02/24: 144, 09/16/24: 146, 09/18/24: 153, 09/20/2024:, 151 09/24/2024: 152 : 150, 09/27/2024: 147 HCO3, 09/11/2024:19 BUN/CR, 09/11/2024: 30/1.16 HGB A1c, 07/12/2019 5:4.5 Liver function tests, 09/11/2024: Unremarkable TG/HDL/LDL/HDL, 07/14/2024: 89/110/59/26 Vitamin B12, 07/2019 5:1114 Folic acid, 07/2024: 0.9 TSH, 09/11/2024: 15.09 Echocardiogram, 09/14/2024: Technically difficult study. Difficult acoustic windows. Patient is uncooperative. From the limited views obtained there appears to be an underlying sinus tachycardia. There is oxqt-ia-isirwhst mitral annular calcification however good excursion of the mitral leaflets. The aortic tricuspid and pulmonic or within normal limits. Left ventricular function is preserved at 60% with normal RV function. Dopplers unremarkable. No pericardial effusion masses or vegetations. Extremity venous study, right arm 09/25/2024: Thrombus in the brachial vein Carotid Doppler, 06/30/24: No hemodynamically significant stenosis noted in the right carotid system. No hemodynamically significant stenosis noted in the left carotid system Carotid Doppler, 09/12/2024: No hemodynamically significant stenosis noted in the left carotid system. Chest x-ray, 09/11/2024: 1. Appropriate position of the support lines and tubes. 2. Bilateral pleural effusions. Chest X-ry, 09/18/2024: Cardiomegaly with pulmonary congestion and edema. Superimposed pneumonia cannot be excluded. Check X-ray, 09/19/2024: Cardiomegaly with mild congestion. Chest X-ray, 09/24/2024: 1. Mild bibasilar mixed opacities, greater on the right which could reflect pneumonia or atelectasis. This appears improved since prior. 2. Small bilateral pleural effusions. MRI head, 09/13/2024: 1. Limited stroke protocol. Limited by motion.2. No evidence of acute infarction, intracranial hemorrhage, mass effect or hydrocephalus. 3. Old right MCA infarct. Consider follow-up exam when patient is able to tolerate vital signs Vital Sign Date Time Temp Pulse Resp B/P (MAP) Pulse Ox O2 Delivery O2 Flow Rate FiO2 09/27/24 09:10 85 114/62 95 Facial BiPAP Mask 30 09/27/24 08:39 31 09/27/24 04:00 97.9 97.9 09/26/24 22:00 6 Total Intake and Output 09/26/24 09/26/24 09/27/24 15:00 23:00 07:00 Intake Total 504.62 ml 563.28 ml 487.62 ml Output Total 1050 ml 1000 ml Balance 504.62 ml -486.72 ml -512.38 ml medications Current Medications Medications Dose Ordered Sig/Miranda Route Start Time Stop Time Status Last Admin Dose Admin Nitroglycerin 0.4 mg Q5MINP PRN SL 09/11/24 00:30 Atorvastatin Calcium 40 mg HS NG 09/11/24 01:30 09/22/24 20:25 40 MG Levothyroxine Sodium 100 mcg DAILY IV 09/12/24 10:00 09/26/24 09:55 100 MCG Ipratropium [place] 0.5 mg Q6HWA PRN NEB 09/13/24 03:00 09/21/24 15:56 0.5 MG Levalbuterol HCl 0.625 mg Q6HWA PRN NEB 09/13/24 03:15 09/21/24 15:56 0.625 MG Trazodone HCl 50 mg HS PO 09/15/24 23:45 09/22/24 20:25 50 MG Levalbuterol HCl 0.625 mg Q6HR NEB 09/16/24 12:00 09/27/24 06:43 0.625 MG Ipratropium [place] 0.5 mg Q6HR NEB 09/16/24 12:00 09/27/24 06:42 0.5 MG Phenylephrine HCl 250 ml @ 30 mls/hr Q8H20M IV 09/17/24 00:45 09/17/24 01:06 30 MLS/HR Diagnostic Test (Pha) 1 strip Q6HR 09/20/24 00:00 09/27/24 05:33 1 STRIP Insulin Human Regular FOLLOW SLIDING SCALE Q6HR SC 09/20/24 00:00 09/25/24 00:31 2 UNITS Dextrose 50 ml UD IV 09/20/24 00:00 Sodium Chloride 10 ml QSHIFT@10,22 IV 09/19/24 22:00 09/26/24 21:40 10 ML Amino Acids 0 ml @ 0 mls/hr PER PHARMACY IV 09/20/24 16:15 Furosemide 20 mg BIDD IV 09/20/24 18:00 09/27/24 05:26 20 MG Pantoprazole Sodium 40 mg BID IV 09/22/24 10:00 09/26/24 21:37 40 MG Acetaminophen 650 mg Q6HP PRN FL 09/22/24 11:15 09/22/24 17:35 650 MG Morphine Sulfate 2 mg Q1HP PRN IV 09/24/24 10:00 09/27/24 08:39 2 MG Fat Emulsion Intravenous 150 ml/Potassium Acetate 40 meq/ Potassium Phosphate 35 meq/ Calcium Gluconate 3.5 meq/Magnesium Sulfate 10 meq/ Multivitamins 10 ml/Chromium/ Copper/Manganese/ Zinc 1 ml/Amino Acids/Amino Acids 1,098.9813 ml @ 46 mls/hr [id number] IV 09/25/24 22:00 09/26/24 21:59 Cancel Lorazepam 1 mg Q1H PRN IV 09/25/24 17:15 09/26/24 23:11 1 MG Fat Emulsion Intravenous 150 ml/Potassium Acetate 30 meq/ Potassium Phosphate 11 meq/ Calcium Gluconate 2.3 meq/Magnesium Sulfate 8 meq/ Multivitamins 10 ml/Chromium/ Copper/Manganese/ Zinc 1 ml/ Dextrose/Amino Acids 1,085.4462 ml @ 45 mls/hr Q24H8M IV 09/26/24 22:00 09/27/24 21:59 09/26/24 21:40 45 MLS/HR Heparin Sodium/ Dextrose 250 ml @ 8 mls/hr Q24H IV 09/26/24 15:00 09/26/24 15:00 8 MLS/HR objective General: the patient is well developed and nourished. No acute distress. MENTAL STATUS: Subjective SPEECH, LANGUAGE, HIGHER CORTICAL FUNCTION: Subjective CRANIAL NERVES: Pupils are equal, round and reactive. EOMs full and conjugate. Facial sensation intact in all three divisions bilaterally. Mandibular strength intact. Facial muscles symmetrical and strength intact. SENSATION: Sensation to touch and pinprick is finel. MOTOR: Normal tone in the upper and lower extremity. Normal muscle bulk. No fasciculations. No abnormal movements or posturing. He does not move the extremities REFLEXES: Deep tendon reflexes normal and symmetrical. No pathological reflexes. CEREBELLAR/COORDINATION: Deferred GAIT/STATION: deferred. laboratory and microbiology Laboratory Tests 09/27/24 02:40 Test 09/27/24 02:40 Range/Units Serum Glucose 117 H 74-106 mg/dL Problem List Acute respiratory failure secondary to pneumonia Pneumonia/respiratory failure ? Aspiration Right sided weakness in 07/2024, rule out acute stroke Chronic stroke with residual left-sided hemiparesis Atrial fibrillation Coagulopathy Status post PICC line Anemia Hypernatremia DVT in the right upper extremity Assessment/Plan Monitoring Supportive treatment Follow-up lab ICU care Stabilize vitals Respiratory support/BiPAP Oxygen Heparin drip Lipitor 40 mg daily Heparin TPN GI prophylaxis Feeding tube once patient is more stabilized More recommendation per clinical course This medical document was created using an electronic medical record system with [employer] dictation system. Although this document has been carefully reviewed, there may still be some phonetic and typographical errors. These areas are purely typographical due to imperfections of the software programs, and do not reflect any compromise in the patient's medical care. Prognosis poor Dietary Evaluation Review Comments: Cardiac Diet, iron supplementation. Follow up with nephrology consult Expected Outcomes/Goals: Gradual wt loss, improved nutrition related lab values. Plan discussed with: Spouse, Other MARY RAMIREZ MD Sep 27, 2024 10:01
[2024-09-27 10:31] LABS: Base Excess 4.6 mmol/L (-2.0-3.0)
--- NOTE | 2024-09-27 11:55 | DVHPNRES ---
Progress Note Date Seen: Sep 27, 2024 Resident Creating Document: [address] RESIDENT Has the PT tested + for MRSA If YES, has PT been informed?: No Medical Necessity Reason Pt with a Central, PICC or Fol: No (mid line) The following are medically ne: PICC Line, Delgado Catheter Medical Necessity Reason Patient seen examined today. She is not doing well. She keeps desaturating in the 60s then back up to upper 80s. ABG drawn today showed ph: 7.29 on 100 fio2. Coagulation is improving. Family at the bedside. Still not decided on what they wanted to do. I spoke them that at this ABG paratmeters, we should be considering intubation or comfort care. They wanted to speak to her daughter, Rosa benavidez. Subjective Review of Systems on Bipap. Unable to speak Objective vital signs Vital Sign Date Time Temp Pulse Resp B/P (MAP) Pulse Ox O2 Delivery O2 Flow Rate FiO2 09/27/24 11:29 84 28 110/42 09/27/24 10:00 93 Bi-Pap+ 100 100 09/27/24 08:00 5 09/27/24 04:00 97.9 97.9 Total Intake and Output 09/26/24 09/26/24 09/27/24 15:00 23:00 07:00 Intake Total 504.62 ml 563.28 ml 487.62 ml Output Total 1050 ml 1000 ml Balance 504.62 ml -486.72 ml -512.38 ml medications Current Medications Medications Dose Ordered Sig/Miranda Route Start Time Stop Time Status Last Admin Dose Admin Nitroglycerin 0.4 mg Q5MINP PRN SL 09/11/24 00:30 Atorvastatin Calcium 40 mg HS NG 09/11/24 01:30 09/22/24 20:25 40 MG Levothyroxine Sodium 100 mcg DAILY IV 09/12/24 10:00 09/27/24 10:43 100 MCG Ipratropium [place] 0.5 mg Q6HWA PRN NEB 09/13/24 03:00 09/21/24 15:56 0.5 MG Levalbuterol HCl 0.625 mg Q6HWA PRN NEB 09/13/24 03:15 09/21/24 15:56 0.625 MG Trazodone HCl 50 mg HS PO 09/15/24 23:45 09/22/24 20:25 50 MG Levalbuterol HCl 0.625 mg Q6HR NEB 09/16/24 12:00 09/27/24 11:40 0.625 MG Ipratropium [place] 0.5 mg Q6HR NEB 09/16/24 12:00 09/27/24 11:40 0.5 MG Phenylephrine HCl 250 ml @ 30 mls/hr Q8H20M IV 09/17/24 00:45 09/17/24 01:06 30 MLS/HR Diagnostic Test (Pha) 1 strip Q6HR 09/20/24 00:00 09/27/24 05:33 1 STRIP Insulin Human Regular FOLLOW SLIDING SCALE Q6HR SC 09/20/24 00:00 09/25/24 00:31 2 UNITS Dextrose 50 ml UD IV 09/20/24 00:00 Sodium Chloride 10 ml QSHIFT@10,22 IV 09/19/24 22:00 09/27/24 10:44 10 ML Amino Acids 0 ml @ 0 mls/hr PER PHARMACY IV 09/20/24 16:15 Furosemide 20 mg BIDD IV 09/20/24 18:00 09/27/24 05:26 20 MG Pantoprazole Sodium 40 mg BID IV 09/22/24 10:00 09/27/24 10:43 40 MG Acetaminophen 650 mg Q6HP PRN [place] 09/22/24 11:15 09/22/24 17:35 650 MG Morphine Sulfate 2 mg Q1HP PRN IV 09/24/24 10:00 09/27/24 11:29 2 MG Fat Emulsion Intravenous 150 ml/Potassium Acetate 40 meq/ Potassium Phosphate 35 meq/ Calcium Gluconate 3.5 meq/Magnesium Sulfate 10 meq/ Multivitamins 10 ml/Chromium/ Copper/Manganese/ Zinc 1 ml/Amino Acids/Amino Acids 1,098.9813 ml @ 46 mls/hr [id number] IV 09/25/24 22:00 09/26/24 21:59 Cancel Lorazepam 1 mg Q1H PRN IV 09/25/24 17:15 09/26/24 23:11 1 MG Fat Emulsion Intravenous 150 ml/Potassium Acetate 30 meq/ Potassium Phosphate 11 meq/ Calcium Gluconate 2.3 meq/Magnesium Sulfate 8 meq/ Multivitamins 10 ml/Chromium/ Copper/Manganese/ Zinc 1 ml/ Dextrose/Amino Acids 1,085.4462 ml @ 45 mls/hr Q24H8M IV 09/26/24 22:00 09/27/24 21:59 09/26/24 21:40 45 MLS/HR Heparin Sodium/ Dextrose 250 ml @ 8 mls/hr Q24H IV 09/26/24 15:00 09/26/24 15:00 8 MLS/HR Fat Emulsion Intravenous 150 ml/Potassium Chloride 20 meq/ Potassium Phosphate 22 meq/ Calcium Gluconate 3.5 meq/Magnesium Sulfate 6 meq/ Multivitamins 10 ml/Chromium/ Copper/Manganese/ Zinc 1 ml/Amino Acids/Dextrose 1,085.0268 ml @ 45 mls/hr Q24H7M IV 09/27/24 22:00 09/28/24 21:59 Examination General Appearance:awake but in distress, she has been crying on the bipap HEENT: Atraumatic, Respiratory: coarse breath sound, more rhonchi on R, same as before Cardiovascular: tachycardia, Normal S1, Normal S2, No murmurs, no chest wall tenderness Abdominal: NO distention, no tenderness, bowel sounds present, no scars noted Extremities: left sided hemiplegic, right sided hemiparesis and swollen Skin: Has midline on the right arm, ecchymosis right arm Neuro: not responding Psych/Mental Status: unable to assess laboratory and microbiology Laboratory Tests 09/27/24 02:40 Test 09/27/24 02:40 Range/Units Serum Glucose 117 H 74-106 mg/dL Microbiology Date/Time Source Procedure Growth Status 09/14/24 01:41 Blood Blood Culture - Final NO GROWTH AFTER 5 DAYS OF INCUBATION. Complete 09/11/24 00:41 Nose MRSA Screen - Final Complete 09/11/24 00:41 Voided Urine Urine Culture - Final Yeast, not Viridiana albicans Complete 09/11/24 00:31 Sputum Gram Stain - Final Complete 09/11/24 00:31 Respiratory Culture - Final Staphylococcus aureus Complete Problem List/Assessment/Plan Problem List/Assessment/Plan Assessment and plan NEUROLOGY: Right sided hemiparesis likely repeated stroke leading to right hemiparesis with speech difficulty. ? Recurrent strokes despite on anticoagulation History of massive CVA with left sided hemiplegic Insomnia on as needed trazodone CARDIOVASCULAR: Paroxysmal atrial fibrillation with secondary hypercoagulable state Status post dual-chamber pacemaker Abott MRI friendly a-sensed v-paced Hypertensive heart disease, LVH: LVEF 65%. Mild LVH mild LV diastolic dysfunction Type II demand mediated NSTEMI, telemetry with conservative management Carotid stenosis ruled out: Bilateral carotid duplex from 06/30/2024 revealed no hemodynamically significant stenosis noted in the bilateral carotid system. Wide QRS, low voltage RBBB Lower risk of significant coronary artery disease: Nuclear stress test from 05/24/2023 revealed ECG findings negative for ischemia and nuclear findings negative for ischemia CT Chest 09/14: Mild cardiomegaly with coronary artery disease. [id number] atherosclerotic vascular disease. on Aspirin, eliquis Obtained Echo result pending Amiodarine drip since 09/15 RESPIRATORY: Aspiration pneumonia likely due to bulbar function B/l pneumonia gram +ve / gram -ve / atypicals Acute hypoxic respiratory failure on 6 L oxygen Pleural effusion ARDS due to possible aspiration pneumonitis Recurrent desaturation BIPAP continued ( 09/17/2025) Lung very coarse; give acetylcysteine 10% q6hrs - CT chest 09/14: Consolidations with air bronchograms in the bilateral lower lobes with evidence of mucus plugging, suspicious for aspiration. Patchy ground glass opacities in the upper lobes bilaterally, likely infectious or inflammatory in nature. X-ray( 09/14/2024) : Interval worsening of right upper lobe pneumonia. Stop IV fluid Continue Zosyn 4L oxygen NC Sputum culture: No growth GASTROINTESTINAL Failed swallow evaluation GERD with gastritis Protonix TPN should start today 09/21/2024 Moderate Malnutrition Plan GI consult for PEG; Per GI, it not feasible given patient's intermittent respiratory distress Lactulose discontinued METABOLIC Dyslipidemia Severe hypokalemia resolved obesity grade 1 replenish electrolytes GENITOURINARY Acute complicated cystitis, Yeast positive, No albicans Chronic hypothyroidism CAROLYN due to VMN ( baseline 0.87) fluconazoles: Stopped HEMATOLOGY Chronic macrocytic + iron deficient mixed anemia Monitor H& H closely and transfuse if hgb< 7 Coagulopathy- improved DVT right upper extremity 09/25/2024 - Heparin bolus and drip - Monitor labs closely ENDOCRINE Hypothyroidism acute on chronic likely due to medication indiscretion Give levothyroxine 100mcg INFECTIOUS DISEASE Severe sepsis with Septic shock Likely sepsis in the setting of aspiration pneumonia MRSA screen negative Continue zosyn; ( fluconazole , stopped 09/20/2024) Levophed -resumed 09/13/2024, Stopped being on it intermittently, prn) PICC line for IV antibiotics; unable to obtain 09/14/2024 PICC line trial today 09/18/2024 SKIN Decubitus ulcer high risk Completely bed bound at home. right arm ecchymosis Others History of Breast cancer- outpatient follow up IV access Central line: right sided IJV: double lumen 09/10/2024; discontinued 09/12/2024 Midline: right upper arm 09/12/2024 PICC LINE: 09/19/2024 Diet: TPN today 09/21/2024 Morphine 2mg q1hr Ativan: 1mg q1hr PRN - Drips: Levophed RESUME 09/13/2024 due to hypotension; Held 09/15/2024 - Delgado's catheter in place 09/10/2024 - DVT prophylaxis: already on Lovenox prophylactic, low hgb - GI prophylaxis: Protonix bid - Diet: Jevity, stopped 09/15/2024; TPN - Heparin drip Disposition: ICU status Goal of care: Family wants hospice with [facility]; Code is modified code ( Chemical code) Critical care time 30 minutes, Advance care planning patient, daughter and Plan discussed with Dr. Miles Plan discussed with: Spouse, Son My Orders My Orders Orders - [address] Procedure Category Date Status Time Heparin Drip/D5w PHA 09/26/24 In Process 100units/Ml 15:00 Heparin Per Pharmacy [facility] 09/26/24 In Process Protocol 15:24 PTPTT LAB 09/27/24 In Process 10:11 Amino Acid PHA 09/27/24 In Process Infusion... W/Fat 22:00 Comprehensive LAB 09/28/24 Verified Metabolic Panel 04:00 Magnesium LAB 09/28/24 Verified 04:00 Phosphorus LAB 09/28/24 Verified 04:00 Tpn Per Pharmacy [facility] 09/27/24 In Process 22:00 Dietary Evaluation Review Comments: Cardiac Diet, iron supplementation. Follow up with nephrology consult Expected Outcomes/Goals: Gradual wt loss, improved nutrition related lab values. Date of Service: Sep 27, 2024 Billing Provider: NICK MILES MD Common Visit Codes: NOT BILLABLE [address] Sep 27, 2024 11:55 NICK MILES MD Oct 02, 2024 18:06
[2024-09-27 11:56] LABS: Partial Thromboplastin Time 51.3 SEC (24.5-34.5); Prothrombin Time 10.6 sec (9.3-11.8)
--- NOTE | 2024-09-27 15:50 | DVHPNRES ---
Progress Note Date Seen: Sep 27, 2024 Resident Creating Document: [address] RESIDENT Has the PT tested + for MRSA If YES, has PT been informed?: No Medical Necessity Reason Pt with a Central, PICC or Fol: No (mid line) The following are medically ne: PICC Line, Delgado Catheter Medical Necessity Reason Patient seen and examine. She desaturated today to 60s at one point. FIO2 was in crease to 100 and with that her PH: 7.29. HGB is stable and trending down. Family needs to decide on if they want comfort measure or intubation. patient looks very tired. Subjective Review of Systems Unable to asses Objective vital signs Vital Sign Date Time Temp Pulse Resp B/P (MAP) Pulse Ox O2 Delivery O2 Flow Rate FiO2 09/27/24 14:12 81 122/57 92 Facial BiPAP Mask 100 09/27/24 12:00 98.9 31 98.9 09/27/24 08:00 5 Total Intake and Output 09/26/24 09/26/24 09/27/24 15:00 23:00 07:00 Intake Total 504.62 ml 563.28 ml 487.62 ml Output Total 1050 ml 1000 ml Balance 504.62 ml -486.72 ml -512.38 ml medications Current Medications Medications Dose Ordered Sig/Miranda Route Start Time Stop Time Status Last Admin Dose Admin Nitroglycerin 0.4 mg Q5MINP PRN SL 09/11/24 00:30 Atorvastatin Calcium 40 mg HS NG 09/11/24 01:30 09/22/24 20:25 40 MG Levothyroxine Sodium 100 mcg DAILY IV 09/12/24 10:00 09/27/24 10:43 100 MCG Ipratropium [place] 0.5 mg Q6HWA PRN NEB 09/13/24 03:00 09/21/24 15:56 0.5 MG Levalbuterol HCl 0.625 mg Q6HWA PRN NEB 09/13/24 03:15 09/21/24 15:56 0.625 MG Trazodone HCl 50 mg HS PO 09/15/24 23:45 09/22/24 20:25 50 MG Levalbuterol HCl 0.625 mg Q6HR NEB 09/16/24 12:00 09/27/24 11:40 0.625 MG Ipratropium [place] 0.5 mg Q6HR NEB 09/16/24 12:00 09/27/24 11:40 0.5 MG Phenylephrine HCl 250 ml @ 30 mls/hr Q8H20M IV 09/17/24 00:45 09/17/24 01:06 30 MLS/HR Diagnostic Test (Pha) 1 strip Q6HR 09/20/24 00:00 09/27/24 13:00 1 STRIP Insulin Human Regular FOLLOW SLIDING SCALE Q6HR SC 09/20/24 00:00 09/27/24 13:01 4 UNITS Dextrose 50 ml UD IV 09/20/24 00:00 Sodium Chloride 10 ml QSHIFT@10,22 IV 09/19/24 22:00 09/27/24 10:44 10 ML Amino Acids 0 ml @ 0 mls/hr PER PHARMACY IV 09/20/24 16:15 Furosemide 20 mg BIDD IV 09/20/24 18:00 09/27/24 05:26 20 MG Pantoprazole Sodium 40 mg BID IV 09/22/24 10:00 09/27/24 10:43 40 MG Acetaminophen 650 mg Q6HP PRN [place] 09/22/24 11:15 09/22/24 17:35 650 MG Morphine Sulfate 2 mg Q1HP PRN IV 09/24/24 10:00 09/27/24 11:29 2 MG Fat Emulsion Intravenous 150 ml/Potassium Acetate 40 meq/ Potassium Phosphate 35 meq/ Calcium Gluconate 3.5 meq/Magnesium Sulfate 10 meq/ Multivitamins 10 ml/Chromium/ Copper/Manganese/ Zinc 1 ml/Amino Acids/Amino Acids 1,098.9813 ml @ 46 mls/hr [id number] IV 09/25/24 22:00 09/26/24 21:59 Cancel Lorazepam 1 mg Q1H PRN IV 09/25/24 17:15 09/26/24 23:11 1 MG Fat Emulsion Intravenous 150 ml/Potassium Acetate 30 meq/ Potassium Phosphate 11 meq/ Calcium Gluconate 2.3 meq/Magnesium Sulfate 8 meq/ Multivitamins 10 ml/Chromium/ Copper/Manganese/ Zinc 1 ml/ Dextrose/Amino Acids 1,085.4462 ml @ 45 mls/hr Q24H8M IV 09/26/24 22:00 09/27/24 21:59 09/26/24 21:40 45 MLS/HR Heparin Sodium/ Dextrose 250 ml @ 8 mls/hr Q24H IV 09/26/24 15:00 09/26/24 15:00 8 MLS/HR Fat Emulsion Intravenous 150 ml/Potassium Chloride 20 meq/ Potassium Phosphate 22 meq/ Calcium Gluconate 3.5 meq/Magnesium Sulfate 6 meq/ Multivitamins 10 ml/Chromium/ Copper/Manganese/ Zinc 1 ml/Amino Acids/Dextrose 1,085.0268 ml @ 45 mls/hr Q24H7M IV 09/27/24 22:00 09/28/24 21:59 Examination General Appearance:awake but in distress, she has been crying on the bipap HEENT: Atraumatic, Respiratory: coarse breath sound, more rhonchi on R, same as before Cardiovascular: tachycardia, Normal S1, Normal S2, No murmurs, no chest wall tenderness Abdominal: NO distention, no tenderness, bowel sounds present, no scars noted Extremities: left sided hemiplegic, right sided hemiparesis and swollen Skin: Has midline on the right arm, ecchymosis right arm, SWOLLEN, DVT Neuro: not responding Psych/Mental Status: unable to assess laboratory and microbiology Laboratory Tests 09/27/24 02:40 Test 09/27/24 02:40 Range/Units Serum Glucose 117 H 74-106 mg/dL Microbiology Date/Time Source Procedure Growth Status 09/14/24 01:41 Blood Blood Culture - Final NO GROWTH AFTER 5 DAYS OF INCUBATION. Complete 09/11/24 00:41 Nose MRSA Screen - Final Complete 09/11/24 00:41 Voided Urine Urine Culture - Final Yeast, not Viridiana albicans Complete 09/11/24 00:31 Sputum Gram Stain - Final Complete 09/11/24 00:31 Respiratory Culture - Final Staphylococcus aureus Complete Problem List/Assessment/Plan Problem List/Assessment/Plan Assessment and plan NEUROLOGY: Right sided hemiparesis likely repeated stroke leading to right hemiparesis with speech difficulty. ? Recurrent strokes despite on anticoagulation History of massive CVA with left sided hemiplegic Insomnia on as needed trazodone CARDIOVASCULAR: Paroxysmal atrial fibrillation with secondary hypercoagulable state Status post dual-chamber pacemaker Abott MRI friendly a-sensed v-paced Hypertensive heart disease, LVH: LVEF 65%. Mild LVH mild LV diastolic dysfunction Type II demand mediated NSTEMI, telemetry with conservative management Carotid stenosis ruled out: Bilateral carotid duplex from 06/30/2024 revealed no hemodynamically significant stenosis noted in the bilateral carotid system. Wide QRS, low voltage RBBB Lower risk of significant coronary artery disease: Nuclear stress test from 05/24/2023 revealed ECG findings negative for ischemia and nuclear findings negative for ischemia CT Chest 09/14: Mild cardiomegaly with coronary artery disease. [id number] atherosclerotic vascular disease. on Aspirin, eliquis Obtained Echo result pending Amiodarine drip since 09/15 RESPIRATORY: Aspiration pneumonia likely due to bulbar function B/l pneumonia gram +ve / gram -ve / atypicals Acute hypoxic respiratory failure on 6 L oxygen Pleural effusion ARDS due to possible aspiration pneumonitis Recurrent desaturation BIPAP continued ( 09/17/2025) Lung very coarse; give acetylcysteine 10% q6hrs - CT chest 09/14: Consolidations with air bronchograms in the bilateral lower lobes with evidence of mucus plugging, suspicious for aspiration. Patchy ground glass opacities in the upper lobes bilaterally, likely infectious or inflammatory in nature. X-ray( 09/14/2024) : Interval worsening of right upper lobe pneumonia. Stop IV fluid Continue Zosyn 4L oxygen NC Sputum culture: No growth GASTROINTESTINAL Failed swallow evaluation GERD with gastritis Protonix TPN should start today 09/21/2024 Moderate Malnutrition Plan GI consult for PEG; Per GI, it not feasible given patient's intermittent respiratory distress Lactulose discontinued METABOLIC Dyslipidemia Severe hypokalemia resolved obesity grade 1 replenish electrolytes GENITOURINARY Acute complicated cystitis, Yeast positive, No albicans Chronic hypothyroidism CAROLYN due to VMN ( baseline 0.87) fluconazoles: Stopped HEMATOLOGY Chronic macrocytic + iron deficient mixed anemia Monitor H& H closely and transfuse if hgb< 7 Coagulopathy- improved DVT right upper extremity 09/25/2024 - Heparin bolus and drip - Monitor labs closely ENDOCRINE Hypothyroidism acute on chronic likely due to medication indiscretion Give levothyroxine 100mcg INFECTIOUS DISEASE Severe sepsis with Septic shock Likely sepsis in the setting of aspiration pneumonia MRSA screen negative Continue zosyn; ( fluconazole , stopped 09/20/2024) Levophed -resumed 09/13/2024, Stopped being on it intermittently, prn) PICC line for IV antibiotics; unable to obtain 09/14/2024 PICC line trial today 09/18/2024 SKIN Decubitus ulcer high risk Completely bed bound at home. right arm ecchymosis Others History of Breast cancer- outpatient follow up IV access Central line: right sided IJV: double lumen 09/10/2024; discontinued 09/12/2024 Midline: right upper arm 09/12/2024 PICC LINE: 09/19/2024 Diet: TPN today 09/21/2024 Morphine 2mg q1hr Ativan: 1mg q1hr PRN - Drips: Levophed RESUME 09/13/2024 due to hypotension; Held 09/15/2024 - Delgado's catheter in place 09/10/2024 - DVT prophylaxis: already on Lovenox prophylactic, low hgb - GI prophylaxis: Protonix bid - Diet: Jevity, stopped 09/15/2024; TPN - Heparin drip Family is deciding what their next plan will be. Disposition: ICU status Goal of care: Family wants hospice [facility]; Code is modified code ( Chemical code) Critical care time 30 minutes, Advance care planning patient, daughter and Plan discussed with Dr. Prieto Plan discussed with: Spouse, Son My Orders My Orders Orders - [address] Procedure Category Date Status Time Amino Acid PHA 09/27/24 In Process Infusion... W/Fat 22:00 Comprehensive LAB 09/28/24 Verified Metabolic Panel 04:00 Magnesium LAB 09/28/24 Verified 04:00 Phosphorus LAB 09/28/24 Verified 04:00 Tpn Per Pharmacy [facility] 09/27/24 In Process 22:00 PTPTT LAB 09/28/24 Verified 04:00 Complete Blood Count LAB 09/28/24 Verified 04:00 Heparin Per Pharmacy [facility] 09/27/24 In Process Protocol 12:05 Dietary Evaluation Review Comments: Cardiac Diet, iron supplementation. Follow up with nephrology consult Expected Outcomes/Goals: Gradual wt loss, improved nutrition related lab values. Date of Service: Sep 27, 2024 Billing Provider: NICK PRIETO MD Common Visit Codes: NOT BILLABLE [address] Sep 27, 2024 15:50 NICK PRIETO MD Oct 02, 2024 18:13
[2024-09-27] MEDS: TPN PER PHARMACY IV NR (21:28)
[2024-09-28] VITALS (38 sets, daily range): BP systolic 58–178; BP diastolic 13–92; PULSE 70–84; RESP 15–35; TEMP 96.6–97.6; O2SAT 47–100
[2024-09-28] MEDS: FUROSEMIDE 40 MG/4 ML VIAL ONE (01:08)
[2024-09-28] MEDS: FUROSEMIDE 40 MG/4 ML VIAL IV ONE (01:11)
[2024-09-28] MEDS: SODIUM BICARB 8.4% 50Meq/50ml SYR INJ ONE (01:46)
[2024-09-28 01:51] LABS: Base Excess 3.8 mmol/L (-2.0-3.0)
[2024-09-28] MEDS: SODIUM BICARB 8.4% 50Meq/50ml SYR Vial IV ONE (01:56)
[2024-09-28 02:05] LABS: Basophils # (auto) 0 10 ^3/uL (0-0.2); Basophils % (auto) 0.2 % (0.0-2.0); Eosinophils # (auto) 0.1 10 ^3/uL (0-0.8); Hematocrit 27.8 % (36.0-46.0); Hemoglobin 8.9 g/dL (12.2-16.2); Lymphocytes # (auto) 1.3 10 ^3/uL (0.4-5.4); Lymphocytes % (auto) 13.5 % (10.0-50.0); Mean Corpuscular Hemoglobin 30.6 pg (28.0-32.0); Mean Corpuscular Hgb Conc. 32.1 g/dL (32.0-36.0); Mean Corpuscular Volume 95.2 fL (80.0-100.0); Monocytes # (auto) 0.7 10 ^3/uL (0-1.3); Monocytes % (auto) 6.8 % (0.0-12.0); Neutrophils # (auto) 7.8 10 ^3/uL (1.6-8.6); Neutrophils % (auto) 78.5 % (37.0-80.0); Platelet Count (auto) 144 10^3/uL (140-450); Red Blood Cells 2.93 10^6/uL (4.0-5.20); Red Cell Distribution Width 17.2 % (11.8-14.3); White Blood Cell 9.9 10^3/uL (4.4-10.8)
--- NOTE | 2024-09-28 02:49 | ED.PDOC ---
Was a procedure done? Was a procedure done?: Yes Sedation Sedation?: No Chest Tube Indication: Pneumothorax Procedure: Sterile preparation, Chest Tube Size (Twenty Indonesian pigtail) Anesthetic: Lidocaine Site: R 4th intercostal space, R Mid Axillary Drainage: Blood, Air Informed consent obtained: Yes Risks/benefits/alt described: Yes Notes Performed procedure with resident physician MARTHA Perry MD Sep 28, 2024 02:49
[2024-09-28] MEDS: FUROSEMIDE 20 MG/2 ML VIAL IV ONE (03:00)
[2024-09-28] MEDS: FUROSEMIDE 20 MG/2 ML VIAL ONE (03:01)
--- NOTE | 2024-09-28 03:05 | DVH ---
CHEST RADIOGRAPH Indication: chest tube insertion Technique: Single frontal view of the chest was obtained COMPARISON: XY CHEST XRAY 1 VIEW on DOS: 09/26/24, XY CHEST XRAY 1 VIEW on DOS: 09/24/24, XY CHEST XRAY 1 VIEW on DOS: 09/23/24, XY CHEST XRAY 1 VIEW on DOS: 09/22/24, XY CHEST PORTABLE on DOS: 09/21/24 FINDINGS: Lines and Tubes: Status post interval placement of right-sided small bore chest tube for pleural effu nova drainage. Lungs: New moderate right pneumothorax status post placement of small bore chest tube and significant interval decrease in right pleural effusion. Mildly Progressive Left basilar pulmonary airspace disease. Cardiomediastinal contours: Unremarkable Bones: Unremarkable IMPRESSION: 1. New moderate right pneumothorax status post interval placement of small bore chest tube for draina ge of pleural effusion, which has significantly reduced when compared to the prior exam. 2. Mildly progressive left basilar pulmonary airspace disease. Critical Result: Pneumothorax Findings discussed with DR. WEINSTEIN, at 09/28/2024 02:59 AM, and acknowledged receipt and understandin g of the findings.
[2024-09-28] MEDS: ALBUMIN 25% 100 ML IV ONE ×3 (03:14→05:35)
[2024-09-28 03:26] LABS: Basophils # (auto) 0 10 ^3/uL (0-0.2); Basophils % (auto) 0.3 % (0.0-2.0); Eosinophils # (auto) 0.1 10 ^3/uL (0-0.8); Hematocrit 28.2 % (36.0-46.0); Hemoglobin 9.1 g/dL (12.2-16.2); Lymphocytes # (auto) 0.9 10 ^3/uL (0.4-5.4); Lymphocytes % (auto) 8.1 % (10.0-50.0); Mean Corpuscular Hemoglobin 30.8 pg (28.0-32.0); Mean Corpuscular Hgb Conc. 32.3 g/dL (32.0-36.0); Mean Corpuscular Volume 95.5 fL (80.0-100.0); Monocytes # (auto) 0.8 10 ^3/uL (0-1.3); Monocytes % (auto) 6.9 % (0.0-12.0); Neutrophils # (auto) 9.2 10 ^3/uL (1.6-8.6); Neutrophils % (auto) 83.7 % (37.0-80.0); Nucleated Red Blood Cells % 0.1 %; Platelet Count (auto) 133 10^3/uL (140-450); Red Blood Cells 2.95 10^6/uL (4.0-5.20); Red Cell Distribution Width 17.2 % (11.8-14.3)
[2024-09-28 03:29] LABS: INR 1.03 (0.9-1.15); Partial Thromboplastin Time 48.2 SEC (24.5-34.5); Prothrombin Time 10.9 sec (9.3-11.8)
[2024-09-28 03:35] LABS: Anion Gap 9 (5-15); BUN/Creatinine Ratio 81.8 (10.0-20.0); Chloride 105 mmol/L (98-107); Magnesium 2.4 mg/dL (1.6-2.6)
[2024-09-28 03:36] LABS: Phosphorus 4.8 mg/dL (2.4-5.1)
[2024-09-28 03:37] LABS: Bilirubin, Total 0.3 mg/dL (0.2-1.0)
[2024-09-28 03:54] LABS: Alanine Aminotransferase 87 U/L (7-40); Albumin 2.8 g/dL (3.2-4.8); Alkaline Phosphatase 131 U/L (46-116); Aspartate Aminotransferase 61 U/L (<34); Blood Urea Nitrogen 54 mg/dL (9-23); Calcium 8.2 mg/dL (8.7-10.4); Carbon Dioxide 35 mmol/L (20-31); Glucose 129 mg/dL (74-106); Potassium 3.5 mmol/L (3.5-5.1); Sodium 149 mmol/L (136-145); Total Protein 5.6 g/dL (5.7-8.2)
--- NOTE | 2024-09-28 04:12 | DVH ---
CHEST RADIOGRAPH Indication: reposition of chest tube Technique: Single frontal view of the chest was obtained COMPARISON: XY CHEST PORTABLE on DOS: 09/28/24, XY CHEST XRAY 1 VIEW on DOS: 09/26/24, XY CHEST XRAY 1 VIEW on DOS: 09/24/24, XY CHEST XRAY 1 VIEW on DOS: 09/23/24, XY CHEST XRAY 1 VIEW on DOS: 09/22/24 FINDINGS: Lines and Tubes: The right-sided small bore chest tube has been reposition such that the pigtail is n ow centered within the lung cavity. Lungs: Stable appearing right pneumothorax. Left basilar pulmonary airspace disease is unchanged. Cardiomediastinal contours: Unremarkable Bones: Unremarkable IMPRESSION: 1. Stable right pneumothorax status post interval repositioning of small bore chest tube. 2. Left basilar pulmonary airspace disease.
--- NOTE | 2024-09-28 05:07 | DVH ---
CHEST RADIOGRAPH Indication: RESP FAILURE Technique: Single frontal view of the chest was obtained COMPARISON: XY CHEST XRAY 1 VIEW on DOS: 09/26/24, XY CHEST XRAY 1 VIEW on DOS: 09/24/24, XY CHEST XRAY 1 VIEW on DOS: 09/23/24, XY CHEST XRAY 1 VIEW on DOS: 09/22/24, XY CHEST PORTABLE on DOS: 09/21/24 FINDINGS: Lines and Tubes: Left chest wall pacemaker. Lungs: Opacification of the right hemithorax. Pleura: Moderate to large right pleural effusion. No pneumothorax. Cardiomediastinal contours: Unremarkable Bones: Unremarkable IMPRESSION: New complete opacification of the right hemithorax may represent a combination of pleural effusion an d atelectasis. Clinical correlation advised. Right chest tube is not clearly visualized.
[2024-09-28] MEDS: POTASSIUM CHL 20MEQ/100ML 100 ML IV ONE (05:35)
[2024-09-28] MEDS: HEPARIN DRIP/D5W 100UNITS/ML 250 ML IV SCH (05:36)
[2024-09-28 07:08] LABS: Base Excess -2.8 mmol/L (-2.0-3.0)
--- NOTE | 2024-09-28 20:09 | DVHDS2 ---
Summary Date of Admission Sep 11, 2024 at 00:15 Date and Time of Expiration: Sep 28, 2024 08:23 Reason for Admission: Likely repeated stroke and aspiration pneumonia Labs/Diagnostic Data: PATIENT: CALIN SIMON ACCT: [id number] UNIT: [id number] : 1950 LOC: ICU [facility] ROOM / BED: [address] [place] [address] AGE / SEX: 73 / F ADM STATUS: ADM IN SERVICE 0400 ORDERING PHYSICIAN: VAMSHI STREET PROCEDURE(s): CXRP - CHEST PORTABLE REASON: RESP FAILURE ORDER NUMBER(s): [id number], ACCESSION NUMBER(s): [id number] CHEST RADIOGRAPH Indication: RESP FAILURE Technique: Single frontal view of the chest was obtained COMPARISON: XY CHEST XRAY 1 VIEW on DOS: 09/26/24, XY CHEST XRAY 1 VIEW on DOS: 09/24/24, XY CHEST XRAY 1 VIEW on DOS: 09/23/24, XY CHEST XRAY 1 VIEW on DOS: 09/22/24, XY CHEST PORTABLE on DOS: 09/21/24 FINDINGS: Lines and Tubes: Left chest wall pacemaker. Lungs: Opacification of the right hemithorax. Pleura: Moderate to large right pleural effusion. No pneumothorax. Cardiomediastinal contours: Unremarkable Bones: Unremarkable IMPRESSION: New complete opacification of the right hemithorax may represent a combination of pleural effusion and atelectasis. Clinical correlation advised. Right chest tube is not clearly visualized. ATED BY: OMERO ROCKWELL MD DICTATED DATE/TIME: 09/28/24 0505 PATIENT: CALIN SIMON ACCT: [id number] UNIT: [id number] : 1950 LOC: ICU [facility] ROOM / BED: [address] [place] [address] A AGE / SEX: 73 / F ADM STATUS: ADM IN SERVICE 0319 ORDERING PHYSICIAN: RUBEN DOW PROCEDURE(s): CXRP - CHEST PORTABLE REASON: reposition of chest tube ORDER NUMBER(s): [id number], ACCESSION NUMBER(s): [id number] CHEST RADIOGRAPH Indication: reposition of chest tube Technique: Single frontal view of the chest was obtained COMPARISON: XY CHEST PORTABLE on DOS: 09/28/24, XY CHEST XRAY 1 VIEW on DOS: 09/26/24, XY CHEST XRAY 1 VIEW on DOS: 09/24/24, XY CHEST XRAY 1 VIEW on DOS: 09/23/24, XY CHEST XRAY 1 VIEW on DOS: 09/22/24 FINDINGS: Lines and Tubes: The right-sided small bore chest tube has been reposition such that the pigtail is now centered within the lung cavity. Lungs: Stable appearing right pneumothorax. Left basilar pulmonary airspace disease is unchanged. Cardiomediastinal contours: Unremarkable Bones: Unremarkable IMPRESSION: 1. Stable right pneumothorax status post interval repositioning of small bore chest tube. 2. Left basilar pulmonary airspace disease. ATED BY: NATALY MCCLURE MD DICTATED DATE/TIME: 09/28/24 0409 PATIENT: CALIN SIMON ACCT: [id number] UNIT: [id number] : 1950 LOC: [facility] ROOM / BED: 0109-[facility] AGE / SEX: 73 / F ADM STATUS: ADM IN SERVICE 5 ORDERING PHYSICIAN: RUBEN DOW RESIDENT PROCEDURE(s): CXRP - CHEST PORTABLE REASON: chest tube insertion ORDER NUMBER(s): [id number], ACCESSION NUMBER(s): [id number] CHEST RADIOGRAPH Indication: chest tube insertion Technique: Single frontal view of the chest was obtained COMPARISON: XY CHEST XRAY 1 VIEW on DOS: 09/26/24, XY CHEST XRAY 1 VIEW on DOS: 09/24/24, XY CHEST XRAY 1 VIEW on DOS: 09/23/24, XY CHEST XRAY 1 VIEW on DOS: 09/22/24, XY CHEST PORTABLE on DOS: 09/21/24 FINDINGS: Lines and Tubes: Status post interval placement of right-sided small bore chest tube for pleural effusion drainage. Lungs: New moderate right pneumothorax status post placement of small bore chest tube and significant interval decrease in right pleural effusion. Mildly Progressive Left basilar pulmonary airspace disease. Cardiomediastinal contours: Unremarkable Bones: Unremarkable IMPRESSION: 1. New moderate right pneumothorax status post interval placement of small bore chest tube for drainage of pleural effusion, which has significantly reduced when compared to the prior exam. 2. Mildly progressive left basilar pulmonary airspace disease. Critical Result: Pneumothorax Findings discussed with DR. WEINSTEIN, at 09/28/2024 02:59 AM, and acknowledged receipt and understanding of the findings. ATED BY: NATALY MCCLURE MD DICTATED DATE/TIME: 09/28/24 0302 PATIENT: CALIN SIMON ACCT: [id number] UNIT: [id number] : 1950 LOC: ICU [facility] ROOM / BED: [address] [place] [address] / A AGE / SEX: 73 / F ADM STATUS: ADM IN SERVICE 0400 ORDERING PHYSICIAN: VAMSHI STREET PROCEDURE(s): CXR1 - CHEST XRAY 1 VIEW REASON: aspiration pneumonia ORDER NUMBER(s): [id number], ACCESSION NUMBER(s): [id number] EXAM: XY CHEST XRAY 1 VIEW Indication: aspiration pneumonia Technique: Single frontal view of the chest was obtained Comparison: XY CHEST XRAY 1 VIEW on DOS: 09/24/24, XY CHEST XRAY 1 VIEW on DOS: 09/23/24, XY CHEST XRAY 1 VIEW on DOS: 09/22/24, XY CHEST PORTABLE on DOS: 09/21/24, XY CHEST XRAY 1 VIEW on DOS: 09/20/24 FINDINGS: Lines and Tubes: Cardiac pacemaker projects over the left chest wall. Lungs: Low lung volumes with bibasilar opacities. Pleura: No effusion. No pneumothorax. Cardiomediastinal contours: Unremarkable Bones: No acute osseous abnormality. IMPRESSION: Low lung volumes with bibasilar opacities. ATED BY: DEWEY LR MD DICTATED DATE/TIME: 09/26/24 0529 PATIENT: CALIN SIMON ACCT: [id number] UNIT: [id number] : 1950 LOC: ICU [facility]ST ROOM / BED: [address] [place] [address] A AGE / SEX: 73 / F ADM STATUS: ADM IN SERVICE 1441 ORDERING PHYSICIAN: NICK PRIETO MD PROCEDURE(s): RUDVT - Rt Upper DVT REASON: arm swelling ORDER NUMBER(s): [id number], ACCESSION NUMBER(s): [id number] RIGHT Upper Extremity Venous Duplex Clinical History: arm swelling Comparison: None Findings: Duplex Doppler evaluation of the venous system of the RIGHT lower neck and upper extremity including color Doppler and spectral/pulsed waveform analysis was performed. The internal jugular vein demonstrates appropriate compressibility and waveform variability. The subclavian vein is patent on color Doppler evaluation without intraluminal thrombus and demonstrates waveform variability. The visualized portion of the brachiocephalic vein is patent on color Doppler evaluation without intraluminal thrombus and demonstrates waveform variability. The axillary vein demonstrates appropriate compressibility and waveform variability. Thrombus in the brachial vein. The basilic vein demonstrates appropriate compressibility and patency on Doppler evaluation. The cephalic vein demonstrates appropriate compressibility and patency on Doppler evaluation. Impression: Thrombus in the brachial vein. . If clinical concern/symptoms persist or worsen, short-interval follow-up study is suggested. ATED BY: TODD HWANG MD DICTATED DATE/TIME: 09/25/24 1558 PATIENT: CALIN SIMON ACCT: [id number] UNIT: [id number] : 1950 LOC: [facility] ROOM / BED: [address] [place] [address] AGE / SEX: 73 / F ADM STATUS: ADM IN SERVICE 0800 ORDERING PHYSICIAN: VAMSHI STREET PROCEDURE(s): CXR1 - CHEST XRAY 1 VIEW REASON: Assess patient's lung status. ORDER NUMBER(s): [id number], ACCESSION NUMBER(s): [id number] EXAM: XY CHEST XRAY 1 VIEW CLINICAL HISTORY: Assess patient's lung status. TECHNIQUE: Single AP view of the chest WID: COMPARISON: XY CHEST XRAY 1 VIEW on DOS: 09/23/24 FINDINGS: Lines and tubes: Left-sided [address] Chest: The heart size and pulmonary vasculature is within normal limits. Calcified plaque projects over the aortic arch. Bibasilar mixed opacities, greater on the right, which appears improved since prior. No pneumothorax . Small bilateral pleural effusions. The osseous structures are grossly intact. IMPRESSION: 1. Mild bibasilar mixed opacities, greater on the right which could reflect pneumonia or atelectasis. This appears improved since prior. 2. Small bilateral pleural effusions. ATED BY: IMMANUEL SPEARS MD DICTATED DATE/TIME: 09/24/24 1305 PATIENT: CALIN SIMON ACCT: [id number] UNIT: [id number] : 1950 LOC: ICU [facility] ROOM / BED: [address] [place] [address] A AGE / SEX: 73 / F ADM STATUS: ADM IN SERVICE 0400 ORDERING PHYSICIAN: VAMSHI STREET PROCEDURE(s): CXR1 - CHEST XRAY 1 VIEW REASON: pneumonia/ effusion ORDER NUMBER(s): [id number], ACCESSION NUMBER(s): [id number] CHEST RADIOGRAPH Indication: pneumonia/ effusion Technique: Single frontal view of the chest was obtained COMPARISON: XY CHEST XRAY 1 VIEW on DOS: 09/22/24, XY CHEST PORTABLE on DOS: 09/21/24, XY CHEST XRAY 1 VIEW on DOS: 09/20/24, XY CHEST PORTABLE on DOS: 09/19/24, XY CHEST PORTABLE on DOS: 09/19/24 FINDINGS: Lines and Tubes: Enteric catheter unchanged. Lungs: Stable small bilateral pleural effusions and bibasilar pulmonary airspace disease. No pneumothorax. Cardiomediastinal contours: Cardiomegaly. Bones: Unremarkable IMPRESSION: 1. Stable cardiomegaly, small bilateral pleural effusions and bibasilar pulmonary airspace disease. 2. Enteric catheter unchanged. ATED BY: NATALY MCCLURE MD DICTATED DATE/TIME: 09/23/24 0550 PATIENT: CALIN SIMON ACCT: [id number] UNIT: [id number] : 1950 LOC: ICU [facility] ROOM / BED: [address] [place] [address] A AGE / SEX: 73 / F ADM STATUS: ADM IN SERVICE 0400 ORDERING PHYSICIAN: VAMSHI STREET PROCEDURE(s): CXR1 - CHEST XRAY 1 VIEW REASON: pneumonia ORDER NUMBER(s): [id number], ACCESSION NUMBER(s): [id number] EXAM: XR Chest, 1 View CLINICAL INDICATION: Pain TECHNIQUE: Frontal view of the chest. COMPARISON: XR Chest dated 09/21/2024 FINDINGS: LUNGS AND PLEURAL SPACES: Left basilar atelectasis or pneumonia. HEART: Cardiomegaly with mild congestion. MEDIASTINUM: Unremarkable. Normal mediastinal contour. BONES/JOINTS: Unremarkable. No acute fracture. TUBES, LINES AND DEVICES: The endotracheal tube (ETT) is in satisfactory position. Enteric tube tip in the stomach. Left-sided cardiac pacemaker. IMPRESSION: 1. Left basilar atelectasis or pneumonia. 2. Cardiomegaly with mild congestion. ATED BY: FLASH TREVIÑO MD DICTATED DATE/TIME: 09/22/24 0511 Diagnostic Imaging Report : [id number] Signed PATIENT: CALIN SIMON ACCT: [id number] UNIT: [id number] : 1950 LOC: [facility] ROOM / BED: [address] [place] [address] AGE / SEX: 73 / F ADM STATUS: ADM IN SERVICE 1251 ORDERING PHYSICIAN: NICK PRIETO MD PROCEDURE(s): CXRP - CHEST PORTABLE REASON: DESATURATION ORDER NUMBER(s): [id number], ACCESSION NUMBER(s): [id number] CHEST RADIOGRAPH Indication: DESATURATION Technique: Single frontal view of the chest was obtained COMPARISON: 09/20/2024 FINDINGS: Nasogastric tube projects towards stomach. Left chest dual lead cardiac pacer device. Left arm PICC line with tip not well visualized. Cholecystectomy. The cardiac silhouette is enlarged. The lungs demonstrate bilateral patchy airspace opacities, tswy-rlgbixd-fhin-right, similar to prior. The pulmonary vasculature is prominent. Moderate left pleural effusion.. There is no pneumothorax. IMPRESSION: As above ATED BY: URSZULA MAGANA MD DICTATED DATE/TIME: 09/21/24 1321 PATIENT: CALIN SIMON ACCT: [id number] UNIT: [id number] : 1950 LOC: ICU [facility] ROOM / BED: [address] [place] [address] / A AGE / SEX: 73 / F ADM STATUS: ADM IN SERVICE 1620 ORDERING PHYSICIAN: VAMSHI STREET PROCEDURE(s): CXR1 - CHEST XRAY 1 VIEW REASON: pneumonia ORDER NUMBER(s): [id number], ACCESSION NUMBER(s): [id number] EXAM: XY CHEST XRAY 1 VIEW TECHNIQUE: Single frontal chest radiograph CLINICAL HISTORY: pneumonia COMPARISON: XY CHEST PORTABLE on DOS: 09/19/24, XY CHEST PORTABLE on DOS: 09/19/24, XY CHEST PORTABLE on DOS: 09/18/24 Findings/Impression: Frontal chest radiograph demonstrates no acute osseous or superficial soft tissue abnormalities. Left chest wall dual-chamber pacemaker. Enteric tube is overlying the plane of the stomach. The trachea is midline. The cardiac silhouette and mediastinum are within normal limits. Teuci-dq-zzcpufzw left pleural effusion and/or atelectasis, worse from prior. A superimposed infectious process is not excluded. Hazy medial right lower lobe airspace opacity, worse from prior. No pneumothorax. ATED BY: LIANNA BARRAZA DO DICTATED DATE/TIME: 09/20/24 1739 PATIENT: CALIN SIMON ACCT: [id number] UNIT: [id number] : 1950 LOC: ICU [facility] ROOM / BED: [address] [place] [address] A AGE / SEX: 73 / F ADM STATUS: ADM IN SERVICE 1826 ORDERING PHYSICIAN: NICK PRIETO MD PROCEDURE(s): USGUIVASAC - US Guided Vascular Access REASON: PICC LINE INSERTION ORDER NUMBER(s): [id number], ACCESSION NUMBER(s): [id number] Exam: US US GUIDED VASCULAR ACCESS Clinical History: PICC LINE INSERTION Comparison: None Technique: Targeted sonographic evaluation of the arm vein was obtained utilizing grayscale and color Doppler imaging. Findings/Impression: Sonographic assistance for PICC line placement. ATED BY: OMERO ROCKWELL MD DICTATED DATE/TIME: 09/21/24545 PATIENT: CALIN SIMON ACCT: [id number] UNIT: [id number] : 1950 LOC: ICU [facility] ROOM / BED: [address] [place] [address] AGE / SEX: 73 / F ADM STATUS: ADM IN SERVICE 16 ORDERING PHYSICIAN: NICK PRIETO MD PROCEDURE(s): CXRP - CHEST PORTABLE REASON: PICC LINE PLACEMENT. TO BE ORDERED BY PICC LINE NURSE ORDER NUMBER(s): [id number], ACCESSION NUMBER(s): [id number] ADDENDUM ADDENDUM # 1 Left peripherally inserted central catheter terminates within the region of the distal superior vena cava. ORIGINAL REPORT CHEST RADIOGRAPH Indication: PICC LINE PLACEMENT. TO BE ORDERED BY PICC LINE NURSE Technique: Single frontal view of the chest was obtained Comparison: XY CHEST PORTABLE on DOS: 09/19/24, XY CHEST PORTABLE on DOS: 09/18/24, XY CHEST PORTABLE on DOS: 09/17/24 FINDINGS: Lines and Tubes: None Lungs: Bibasilar areas of airspace disease or atelectasis. Lung unchanged from 3:54 a.m. Pleura: No effusion. No pneumothorax. Cardiomediastinal contours: Unremarkable Bones: No acute osseous abnormality. IMPRESSION: 1. No significant change 3:54 a.m.. ATED BY: NATALY MCCLURE MD DICTATED DATE/TIME: 09/20/24325 SIGNED BY: NATALY MCCLURE MD SIGNED DATE/TIME: 06/18/25 0326 CC: CHEST RADIOGRAPH Indication: PICC LINE PLACEMENT. TO BE ORDERED BY PICC LINE NURSE Technique: Single frontal view of the chest was obtained Comparison: XY CHEST PORTABLE on DOS: 09/19/24, XY CHEST PORTABLE on DOS: 09/18/24, XY CHEST PORTABLE on DOS: 09/17/24 FINDINGS: Lines and Tubes: None Lungs: Bibasilar areas of airspace disease or atelectasis. Lung unchanged from 3:54 a.m. Pleura: No effusion. No pneumothorax. Cardiomediastinal contours: Unremarkable Bones: No acute osseous abnormality. IMPRESSION: 1. No significant change 3:54 a.m.. ATED BY: MARCEL CHOWDHURY Jr., DO DICTATED DATE/TIME: 09/19/241957 PATIENT: CALIN SIMON ACCT: [id number] UNIT: [id number] : 1950 LOC: ICU [facility] ROOM / BED: [address] [place] [address] / A AGE / SEX: 73 / F ADM STATUS: ADM IN SERVICE 0400 ORDERING PHYSICIAN: VAMSHI STREET PROCEDURE(s): CXRP - CHEST PORTABLE REASON: ACUTE HYPOXEMIC RESPIRATORY FAILURE ORDER NUMBER(s): [id number], ACCESSION NUMBER(s): [id number] EXAM: XR Chest, 1 View CLINICAL INDICATION: Pain TECHNIQUE: Frontal view of the chest. COMPARISON: XR Chest dated 09/18/2024 FINDINGS: LUNGS AND PLEURAL SPACES: See below. HEART: Cardiomegaly with mild congestion. MEDIASTINUM: Unremarkable. Normal mediastinal contour. BONES/JOINTS: Unremarkable. No acute fracture. TUBES, LINES AND DEVICES: Enteric tube tip in the stomach. Left-sided cardiac pacemaker. IMPRESSION: Cardiomegaly with mild congestion. ATED BY: FLASH TREVIÑO MD DICTATED DATE/TIME: 09/19/24526 PATIENT: CALIN SIMON ACCT: [id number] UNIT: [id number] : 1950 LOC: ICU [facility] ROOM / BED: [address] [place] [address] / A AGE / SEX: 73 / F ADM STATUS: ADM IN SERVICE 0700 ORDERING PHYSICIAN: NICK PRIETO MD PROCEDURE(s): CXRP - CHEST PORTABLE REASON: ACUTE HYPOXEMIC RESPIRATORY FAILURE ORDER NUMBER(s): [id number], ACCESSION NUMBER(s): [id number] EXAM: XR Chest, 1 View CLINICAL INDICATION: Pain TECHNIQUE: Frontal view of the chest. COMPARISON: No relevant prior studies available. FINDINGS: LUNGS AND PLEURAL SPACES: See below. HEART: Cardiomegaly with pulmonary congestion and edema. Superimposed pneumonia cannot be excluded. MEDIASTINUM: Unremarkable. Normal mediastinal contour. BONES/JOINTS: Unremarkable. No acute fracture. TUBES, LINES AND DEVICES: Enteric tube tip in the stomach. Left-sided cardiac pacemaker. IMPRESSION: Cardiomegaly with pulmonary congestion and edema. Superimposed pneumonia cannot be excluded. ATED BY: FLASH TREVIÑO MD DICTATED DATE/TIME: 09/18/24725 PATIENT: CALIN SIMON ACCT: [id number] UNIT: [id number] : 1950 LOC: [facility] ROOM / BED: [address] [place] [address] AGE / SEX: 73 / F ADM STATUS: ADM IN SERVICE 0400 ORDERING PHYSICIAN: JAVAN CASTILLO MD PROCEDURE(s): CXRP - CHEST PORTABLE REASON: PNEUMONIA ORDER NUMBER(s): [id number], ACCESSION NUMBER(s): [id number] CHEST RADIOGRAPH Indication: PNEUMONIA Technique: Single frontal view of the chest was obtained COMPARISON: XY CHEST PORTABLE on DOS: 09/16/24, XY CHEST PORTABLE on DOS: 09/15/24, XY CHEST XRAY 1 VIEW on DOS: 09/14/24, XY CHEST XRAY 1 VIEW on DOS: 09/13/24, XY CHEST PORTABLE on DOS: 09/13/24 FINDINGS: Lines and Tubes: Left chest wall pacemaker. Enteric catheter in satisfactory position. Lungs: Low lung volumes. Pleura: No effusion. No pneumothorax. Cardiomediastinal contours: Cardiomegaly Bones: Unremarkable IMPRESSION: No significant interval change. ATED BY: OMERO ROCKWELL MD DICTATED DATE/TIME: 09/17/24 0626 PATIENT: CALIN SIMON ACCT: [id number] UNIT: [id number] : 1950 LOC: [facility] ROOM / BED: [address] [place] [address] AGE / SEX: 73 / F ADM STATUS: ADM IN SERVICE 0400 ORDERING PHYSICIAN: RUBEN DOW PROCEDURE(s): CXRP - CHEST PORTABLE REASON: PNEUMONIA ORDER NUMBER(s): [id number], ACCESSION NUMBER(s): [id number] CHEST RADIOGRAPH Indication: PNEUMONIA Technique: Single frontal view of the chest was obtained Comparison: XY CHEST PORTABLE on DOS: 09/15/24, XY CHEST XRAY 1 VIEW on DOS: 09/14/24, XY CHEST XRAY 1 VIEW on DOS: 09/13/24 IMPRESSION: Heart appears stable in size with dual lead left cardiac device. Enteric tube tip in the region of the stomach. Patchy airspace opacity in the left lung base may represent atelectasis or consolidation. Possible small left pleural effusion. No pneumothorax. No significant interval change. ATED BY: ABEBA MCCAULEY MD DICTATED DATE/TIME: 09/16/24 0532 PATIENT: CALIN SIMON ACCT: [id number] UNIT: [id number] : 1950 LOC: [facility] / BED: [address] [place] [address] AGE / SEX: 73 / F ADM STATUS: ADM IN SERVICE 0500 ORDERING PHYSICIAN: VAMSHI STREET PROCEDURE(s): CXRP - CHEST PORTABLE REASON: 0500 ORDER NUMBER(s): [id number], ACCESSION NUMBER(s): [id number] CHEST RADIOGRAPH Indication: 0500 Technique: Single frontal view of the chest was obtained Comparison: XY CHEST XRAY 1 VIEW on DOS: 09/14/24 FINDINGS: Lines and Tubes: Enteric tube terminates in the stomach. There is a dual-chamber pacemaker with right atrial and ventricular leads. Lungs: Bibasilar airspace disease. Pleura: No effusion. No pneumothorax. Cardiomediastinal contours: Unremarkable Bones: No acute osseous abnormality. IMPRESSION: 1. Bibasilar airspace disease which may reflect sequelae of aspiration. ATED BY: ELLEN OCHOA MD DICTATED DATE/TIME: 09/15/24 0624 PATIENT: CALIN SIMON ACCT: [id number] UNIT: [id number] : 1950 LOC: ICU [facility] RO[facility] / BED: [address] [place] [address] / A AGE / SEX: 73 / F ADM STATUS: ADM IN SERVICE 1347 ORDERING PHYSICIAN: VAMSHI STREET PROCEDURE(s): CXR1 - CHEST XRAY 1 VIEW REASON: PROTOCOL ORDER NUMBER(s): [id number], ACCESSION NUMBER(s): [id number] CHEST RADIOGRAPH Indication: PROTOCOL Technique: Single frontal view of the chest was obtained Comparison: XY CHEST XRAY 1 VIEW on DOS: 09/13/24, XY CHEST PORTABLE on DOS: 09/13/24, XY CHEST XRAY 1 VIEW on DOS: 09/11/24, XY CHEST PORTABLE on DOS: 02/25/24, XY CHEST PORTABLE on DOS: 12/28/23, XY CHEST PORTABLE on DOS: 09/13/24 FINDINGS: Lines and Tubes: Nasogastric tip in the stomach. Left pacemaker. Lungs: Worsening multifocal pneumonia. No pneumothorax. Cardiomediastinal contours: Unremarkable Bones: Unremarkable IMPRESSION: Interval worsening of right upper lobe pneumonia. ATED BY: TODD HWANG MD DICTATED DATE/TIME: 09/14/24 1445 PATIENT: CALIN SIMON ACCT: [id number] UNIT: [id number] : 1950 LOC: ICU [facility] RO[facility] / BED: [address] [place] [address] / A AGE / SEX: 73 / F ADM STATUS: ADM IN SERVICE 0015 ORDERING PHYSICIAN: RUBEN DOW PROCEDURE(s): CX2CT - CHEST WITHOUT CONTRAST REASON: RECURRENT DESATURATION ORDER NUMBER(s): [id number], ACCESSION NUMBER(s): [id number] Procedure: CT CHEST WITHOUT CONTRAST Reason for study/Clinical History: RECURRENT DESATURATION Comparison Study: US CHEST ULTRASOUND on DOS: 09/11/24 Exam Date: 09/14/2024 09:40 AM TECHNIQUE: Multidetector CT of the chest was performed from the lung apices to the upper abdomen without the use of intravenous contract. Axial, coronal and sagittal multiplanar reformats were performed. Radiation Dose Information: CT Dose: CTDI volume is 20.02 mGy. Dose-length product is 634.67 mGy*cm The dose indicators for CT are the volume Computed Tomography (CT) Dose Index (CTDIvol) and the Dose Length Product (DLP), and are measured in units of mGy and mGy-cm, respectively. These indicators are not patient dose, but values generated from the CT scanner acquisition factors. The report includes radiation exposure data for exposures received during this examination. FINDINGS: Dual lead left chest wall AICD / pacemaker in place. Enteric tube terminates in the stomach. Lower neck: Normal thyroid. Lungs: Patchy ground glass opacities in the bilateral upper lobes. Mucus / debris layering in the trachea, right mainstem bronchus, and bronchus intermedius. There is mucus plugging in the right lower lobe with right lower lobe consolidation with bronchograms. There is also consolidation with air bronchograms grams in the left lower lobe, right middle lobe and subsegmental atelectasis in the left upper lobe. Elevated right hemidiaphragm. Heart/Vascular Structures: Mild cardiomegaly. Coronary artery calcifications. No pericardial effusion. Grmp-zr-ptkjxaeh atherosclerotic calcifications of the aorta. Lymph Nodes: No adenopathy Pleura: Trace left pleural fusion. No pneumothorax. Musculoskeletal: No acute osseous abnormality. Soft tissues: Normal. Upper abdomen: Status post cholycystectomy. IMPRESSION: 1. Consolidations with air bronchograms in the bilateral lower lobes with evidence of mucus plugging, suspicious for aspiration. 2. Patchy ground glass opacities in the upper lobes bilaterally, likely infectious or inflammatory in nature. 3. Mild cardiomegaly with coronary artery disease. Otxp-xd-jijkhswc atherosclerotic vascular disease. Radiation optimization: All CT scans at this facility use at least one of these dose optimization techniques: automated exposure control mA and/or kV adjustment per patient size (includes targeted exams where dose is matched to clinical indication) or iterative reconstruction. ATED BY: TODD HWANG MD DICTATED DATE/TIME: 09/14/24 1041 Signed PATIENT: CALIN SIMON ACCT: [id number] UNIT: [id number] : 1950 LOC: ICU [facility] / BED: [address] [place] [address] A AGE / SEX: 73 / F ADM STATUS: ADM IN SERVICE 2156 ORDERING PHYSICIAN: MARY RAMIREZ MD PROCEDURE(s): MBHL - BRAIN HEAD WO CONTRAST REASON: CVA ORDER NUMBER(s): [id number], ACCESSION NUMBER(s): [id number] PROCEDURE: MRI BRAIN HEAD WO CONTRAST INDICATION: CVA EXAM DATE: 09/13/2024 11:48 AM COMPARISON: None TECHNIQUE: MRI of the brain without intravenous contrast. Limited stroke protocol. FINDINGS: Limited by motion. Diffusion weighted images of the brain demonstrate no evidence of acute infarction. There is no evidence of acute intracranial hemorrhage, extra-axial collection, mass effect, midline shift, herniation or hydrocephalus. Ex vacuo dilation of the right lateral ventricle. 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 There are no definite signal abnormalities on the susceptibility weighted sequences. The major vascular flow voids are present. The visualized paranasal sinuses and mastoid air cells are clear. The surrounding soft tissues and osseous structures are unremarkable. IMPRESSION: 1. Limited stroke protocol. Limited by motion. 2. No evidence of acute infarction, intracranial hemorrhage, mass effect or hydrocephalus. 3. Old right MCA infarct. Consider follow-up exam when patient is able to tolerate. HS:Y ATED BY: PERFECTO HEARD MD DICTATED DATE/TIME: 09/13/24 1315 SIGNED BY: PERFECTO HEARD MD PATIENT: CALIN SIMON ACCT: [id number] UNIT: [id number] : 1950 LOC: ICU [facility] ROOM / BED: [address] [place] [address] A AGE / SEX: 73 / F ADM STATUS: ADM IN SERVICE 0813 ORDERING PHYSICIAN: VAMSHI STREET PROCEDURE(s): CXR1 - CHEST XRAY 1 VIEW REASON: re-evaluation ORDER NUMBER(s): [id number], ACCESSION NUMBER(s): [id number] CHEST RADIOGRAPH Indication: re-evaluation Technique: Single frontal view of the chest was obtained Comparison: XY CHEST PORTABLE on DOS: 09/13/24, XY CHEST XRAY 1 VIEW on DOS: 09/11/24, XY CHEST PORTABLE on DOS: 02/25/24, XY CHEST PORTABLE on DOS: 12/28/23, XY CHEST XRAY 1 VIEW on DOS: 09/16/23, XY CHEST PORTABLE on DOS: 09/13/24 FINDINGS: Lines and Tubes: Enteric catheter unchanged. Left anterior chest wall dual lead cardiac pacing device redemonstrated. Lungs: Progressive left basilar pulmonary airspace disease and pleural effusion. The right lung is grossly clear. No pneumothorax. Cardiomediastinal contours: Unremarkable Bones: Unremarkable IMPRESSION: 1. No change. ATED BY: TODD HWANG MD DICTATED DATE/TIME: 09/13/2437 PATIENT: CALIN SIMON ACCT: [id number] UNIT: [id number] : 1950 LOC: [facility] ROOM / BED: [address] [place] [address] AGE / SEX: 73 / F ADM STATUS: ADM IN SERVICE 7 ORDERING PHYSICIAN: RUBEN DOW RESIDENT PROCEDURE(s): CXRP - CHEST PORTABLE REASON: DESATURATION ORDER NUMBER(s): [id number], ACCESSION NUMBER(s): [id number] CHEST RADIOGRAPH Indication: DESATURATION Technique: Single frontal view of the chest was obtained COMPARISON: XY CHEST XRAY 1 VIEW on DOS: 09/11/24, XY CHEST PORTABLE on DOS: 02/25/24, XY CHEST PORTABLE on DOS: 12/28/23, XY CHEST XRAY 1 VIEW on DOS: 09/16/23 FINDINGS: Lines and Tubes: Interval removal of right internal jugular central venous catheter. Enteric catheter unchanged. Left anterior chest wall dual lead cardiac pacing device redemonstrated. Lungs: Progressive left basilar pulmonary airspace disease and pleural effusion. The right lung is grossly clear. No pneumothorax. Cardiomediastinal contours: Unremarkable Bones: Unremarkable IMPRESSION: 1. Interval progression in left basilar pulmonary airspace disease and pleural effusion. 2. Interval removal of right internal jugular central venous catheter. 3. Enteric catheter unchanged. ATED BY: NATALY MCCLURE MD DICTATED DATE/TIME: 09/13/24343 PATIENT: CALIN SIMON ACCT: [id number] UNIT: [id number] : 1950 LOC: ICU [facility] RO[facility] / BED: [address] [place] [address] AGE / SEX: 73 / F ADM STATUS: ADM IN SERVICE 55 ORDERING PHYSICIAN: MARY RAMIREZ MD PROCEDURE(s): CARCL - CAROTID DUPLX W COLOR DOP REASON: cva ORDER NUMBER(s): [id number], ACCESSION NUMBER(s): [id number] Carotid Duplex Date: 09/11/2024 10:39 PM Clinical History: cva Comparison: US CAROTID DUPLX W COLOR DOP on DOS: 05/26/23 Technique: Duplex Doppler evaluation of the extracranial carotid and vertebral arteries including color Doppler and spectral/pulsed waveform analysis was performed. Findings: Right carotid artery not visualized. Less than 50% stenosis of the left ICA. IMPRESSION: No hemodynamically significant stenosis noted in the left carotid system. Reference: Radiology 2003; 229:[id number] ATED BY: TODD HWANG MD DICTATED DATE/TIME: 09/12/24345 PATIENT: CALIN SIMON ACCT: [id number] UNIT: [id number] : 1950 LOC: [facility] ROOM / BED: [address] [place] [address] AGE / SEX: 73 / F ADM STATUS: ADM IN SERVICE 3 ORDERING PHYSICIAN: RUBEN DOW PROCEDURE(s): BLDVT - BiLat Lower DVT REASON: Non ambulatory patient with history of cancer ORDER NUMBER(s): [id number], ACCESSION NUMBER(s): [id number] EXAM: US Duplex Bilateral Lower Extremities Veins CLINICAL INDICATION: Non ambulatory patient with history of cancer TECHNIQUE: Real-time duplex ultrasound scan of the bilateral lower extremity veins integrating B-mode two-dimensional vascular structure, Doppler spectral analysis, color flow Doppler imaging and compression. COMPARISON: None FINDINGS: RIGHT DEEP VEINS: Unremarkable. No DVT in the right common femoral, femoral, proximal deep femoral or popliteal veins. The veins demonstrate normal color flow, are normally compressible, with normal phasic flow and/or augmentation response. RIGHT SUPERFICIAL VEINS: Unremarkable. No thrombus in the visualized right great saphenous vein. LEFT DEEP VEINS: Unremarkable. No DVT in the left common femoral, femoral, proximal deep femoral or popliteal veins. The veins demonstrate normal color flow, are normally compressible, with normal phasic flow and/or augmentation response. LEFT SUPERFICIAL VEINS: Unremarkable. No thrombus in the visualized left great saphenous vein. SOFT TISSUES: No acute findings. No popliteal cyst. OTHER FINDINGS: . IMPRESSION: No DVT. ATED BY: FLASH TREVIÑO MD DICTATED DATE/TIME: 09/11/24722 PATIENT: CALIN SIMON ACCT: [id number] UNIT: [id number] : 1950 LOC: [facility] ROOM / BED: [address] [place] [address] AGE / SEX: 73 / F ADM STATUS: ADM IN SERVICE 0332 ORDERING PHYSICIAN: RUBEN DOW PROCEDURE(s): CHSTU - CHEST ULTRASOUND REASON: quantify the pleural effusion. ORDER NUMBER(s): [id number], ACCESSION NUMBER(s): [id number] EXAM: US Chest CLINICAL INDICATION: quantify the pleural effusion. TECHNIQUE: Real-time ultrasound of the chest with image documentation. COMPARISON: None FINDINGS: No pleural effusion. . . IMPRESSION: No pleural effusion. ENT: CALIN SIMON ACCT: [id number] UNIT: [id number] : 1950 LOC: ICU [facility] ROOM / BED: [address] [place] [address] A AGE / SEX: 73 / F ADM STATUS: ADM IN SERVICE 0115 ORDERING PHYSICIAN: RUBEN DOW PROCEDURE(s): CXR1 - CHEST XRAY 1 VIEW REASON: NG tube placement. ORDER NUMBER(s): [id number], ACCESSION NUMBER(s): [id number] CHEST RADIOGRAPH Indication: NG tube placement. Technique: Single frontal view of the chest was obtained Comparison: XY CHEST PORTABLE on DOS: 02/25/24 FINDINGS: Lines and Tubes: Enteric tube terminates in the stomach. Pacemaker noted with right atrial and ventricular leads. Right central venous catheter terminates in the superior vena cava. Lungs: No focal consolidation. Pleura: Small bilateral pleural effusions. No pneumothorax. Cardiomediastinal contours: Unremarkable Bones: No acute osseous abnormality. IMPRESSION: 1. Appropriate position of the support lines and tubes. 2. Bilateral pleural effusions. ATED BY: ELLEN OCHOA MD DICTATED DATE/TIME: 09/11/24 0505 Laboratory Results Test 09/28/24 07:00 09/28/24 06:21 09/28/24 02:47 09/28/24 01:36 Blood Gas Specimen Type Arterial Blood Gas Sample Site Right radial Blood Gas Patient Temperature 37.0 Arterial Blood Date Drawn [id number] Arterial Blood pH 7.073 (7.350-7.450) Arterial Blood Partial Pressure CO2 100.0 mmHg (32.0-45.0) Arterial Blood Partial Pressure O2 56.5 mmHg (83.0-108.0) Arterial Blood HCO3 28.5 mmol/L (21.0-28.0) Arterial Blood Oxygen Saturation 79.6 % (94.0-98.0) Arterial Blood Base Excess -2.8 mmol/L (-2.0-3.0) Arterial Blood Oxyhemoglobin 78.8 % (94.0-98.0) Arterial Blood Carboxyhemoglobin 0.6 % (0.5-1.5) Arterial Blood Methemoglobin 0.4 % (0.0-1.5) Sundeep Test Yes Blood Gas Total Hemoglobin 9.50 g/dL (12.0-16.0) Blood Gas Modality Mask - bipap FiO2 % 100.0 Blood Gas EPAP 10 Blood Gas IPAP 20 Blood Gas Critical Value Read Back yes Blood Gas Notified Whom akosua gaston md Blood Gas Notified Time [id number] Blood Gas Notified By petrona diaz POC Glucose 169 mg/dl (70-106) White Blood Count 11.0 10^3/uL (4.4-10.8) Red Blood Count 2.95 10^6/uL (4.0-5.20) Hemoglobin 9.1 g/dL (12.2-16.2) Hematocrit 28.2 % (36.0-46.0) Mean Corpuscular Volume 95.5 fL (80.0-100.0) Mean Corpuscular Hemoglobin 30.8 pg (28.0-32.0) Mean Corpuscular Hemoglobin Concent 32.3 g/dL (32.0-36.0) Red Cell Distribution Width 17.2 % (11.8-14.3) Platelet Count 133 10^3/uL (140-450) Mean Platelet Volume 10.1 fL (6.9-10.8) Neutrophils (%) (Auto) 83.7 % (37.0-80.0) Lymphocytes (%) (Auto) 8.1 % (10.0-50.0) Monocytes (%) (Auto) 6.9 % (0.0-12.0) Eosinophils (%) (Auto) 1.0 % (0.0-7.0) Basophils (%) (Auto) 0.3 % (0.0-2.0) Neutrophils # (Auto) 9.2 10 ^3/uL (1.6-8.6) Lymphocytes # (Auto) 0.9 10 ^3/uL (0.4-5.4) Monocytes # (Auto) 0.8 10 ^3/uL (0-1.3) Eosinophils # (Auto) 0.1 10 ^3/uL (0-0.8) Basophils # (Auto) 0 10 ^3/uL (0-0.2) Nucleated Red Blood Cells 0.1 % Prothrombin Time 10.9 sec (9.3-11.8) Prothrombin Time INR 1.03 (0.9-1.15) Activated Partial Thromboplast Time 48.2 SEC (24.5-34.5) Sodium Level 149 mmol/L (136-145) Potassium Level 3.5 mmol/L (3.5-5.1) Chloride Level 105 mmol/L (98-107) Carbon Dioxide Level 35 mmol/L (20-31) Anion Gap 9 (5-15) Blood Urea Nitrogen 54 mg/dL (9-23) Creatinine 0.66 mg/dL (0.550-1.02) Glomerular Filtration Rate Calc 93 mL/min (>90) BUN/Creatinine Ratio 81.8 (10.0-20.0) Serum Glucose 129 mg/dL (74-106) Calcium Level 8.2 mg/dL (8.7-10.4) Phosphorus Level 4.8 mg/dL (2.4-5.1) Magnesium Level 2.4 mg/dL (1.6-2.6) Total Bilirubin 0.3 mg/dL (0.2-1.0) Aspartate Amino Transferase (AST) 61 U/L (<34) Alanine Aminotransferase (ALT) 87 U/L (7-40) Alkaline Phosphatase 131 U/L (46-116) Total Protein 5.6 g/dL (5.7-8.2) Albumin 2.8 g/dL (3.2-4.8) Blood Gas Set Respiration Rate 14.0 Specimen Drawn By vance Suresh, reservations manager Blood Gas Comments Bipap 22/01, bur 14 Test 09/27/24 02:40 09/26/24 22:32 09/17/24 03:53 09/15/24 03:22 Triglycerides Level 99 mg/dL (< 150) Blood Gas Liter Flow 6.00 D-Dimer, Quantitative 0.29 mg/L FEU (0.0-0.49) Random Vancomycin Level 20.0 ug/mL (5-10) Test 09/14/24 08:24 09/14/24 03:48 09/14/24 01:30 09/11/24 03:13 Cortisol AM Sample > 150.00 ug/dL (5.27-22.45) Troponin I High Sensitivity 110 ng/L (</=34) Lactic Acid Level 1.1 mmol/L (0.4-2.0) Iron Level 20 ug/dL (50-170) Total Iron Binding Capacity 214 ug/dL (250-425) Percent Iron Saturation 9.3 % (15-50) Ferritin 476.6 ng/mL (10-291) SARS-CoV-2 Antigen (Rapid) Negative (NEGATIVE) Test 09/11/24 01:41 B-Type Natriuretic Peptide 81.19 pg/mL (0-100) Folic Acid 9.46 ng/mL (>5.38) Thyroid Stimulating Hormone (TSH) 15.09 uIU/mL (0.55-4.78) Free Thyroxine (T4) Calculated 1.69 ng/dL (0.89-1.76) Free Triiodothyronine (T3) pg/mL 3.16 pg/mL (2.3-4.2) Other Laboratory Tests 09/28/24 02:47 Brief Hx & Hospital Course: Patient was a 73 year old female whose medical conditions included atrial fibrillation, stroke with residual left-sided deficits, breast cancer, hypertension, dual chamber Pacemaker present, appendectomy, cholecystectomy, mastectomy was transferred from [facility] on 09/11/2024 for continuity of care at [facility]. The main informant was her . According him, patient was recently seen on 08/03/2024 and managed for syncopal episode likely secondary to paroxysmal atrial fibrillation. Assessment for syncopal episode did not reveal any significant findings and patient returned to her baseline and was discharge home. 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 Also, her cough was weak and she was unable to clear her throat and overall weaker than her baseline. Patient was sent to [facility] and managed for bilateral pneumonia possibly aspiration, Septic shock needing Levophed support. Once patient was stabilized, she was transfer to [facility] for continuity of care. She had NG tube on arrival Patient was a direct admit to the ICU from [facility] . Upon arrival, the patient was alert and oriented but had no recollection of further syncopal event or aspiration. Patient's blood pressure was on the low. Initial lab work here showed hemoglobin of 9.9, wbc: 8.5, cr 1.16 ( baseline 0.87), urine,sputum and blood samples taken for culture. Cxr revealed bilateral pleural effusions. Patient was prophylactically started on vancomycin and cefepime. Urine culture grew yeast,not herminia albicans and respiratory culture later grew staphylococcus aureus. Management continued with the same antibiotics. As the day progress, patient's status fluctuates. Some days she would be lucid and follows conversations, other days she would just be somnolent. We tried to wean patient of the NG tube, but each time, patient would aspirate. Daily x-ray showed recurrent aspiration pneumonia. Neurology consulted and ordered for an MRI which did not reveal evidence of acute infarction, intracranial hemorrhage, mass effect or hydrocephalus, but showed an old right MCA infarct. Carotid duplex showed no hemodynamically significant stenosis noted in the left carotid system. However, patient has been having right sided weakness for about 4 weeks prior to presenting to the hospital. On 09/14/2024, patient decompensated. She had worsening acute hypoxic respiratory failure with recurrent aspiration, bulbar weakness, acidotic breathing. At that point , patient was not alert or oriented. Antibiotic was changed from Cefepime to Zosyn. ABG showed worsening acidosis, mixed non anion gap respiratory plus metabolic acidosis. Patient was placed on BIPAP. Source of nutrition was clinimix then transitioned to TPN whilst considering the possibility of PEG tube before patient goes home on hospice. GI physician assessed patient and did not think patient was medically fit for a PEG tube as she as on anticoagulant and in respiratory distress constantly needing Bipap. Patient was kept on Bipap for over 7 days without much improvement. After much deliberation, family had changed her code status to Bipap only. Patient's blood hemoglobin dropped to 6.8 and had to be transfused twice. Anticoagulation held due the low hemoglobin. On the 09/25/2024 right arm was notable swollen compared to left. Venous Doppler revealed a thrombus in the right brachial vein. Family was always present at the bedside was briefed about patient's prognosis. Patient's condition continue to deteriorate daily whiles on a Bipap with tachypneic and and decreasing oxygen saturation. On 09/28/2024 morning, I was called about the patient's blood pressure running low in the 58/13s with decreasing heart rates to the point that her heart rate was only paced by the pacemaker. Shortly after that, patient went into asystole. Her son was at the bed side. Patient was observed for about 5 minutes. Carotid and peripheral pulses were absent, no heart or respiratory rates noted, unable to get a blood pressure and her pupils were dilated. Patient was confirmed at 8:23am on 09/28/2024. Diagnoses Recurrent Aspiration pneumonia likely due to bulbar function B/l pneumonia gram +ve / gram -ve / atypicals Acute hypoxic respiratory failure on 6 L oxygen Pleural effusion ARDS due to possible aspiration pneumonitis Right sided hemiparesis,likely repeated stroke leading to right hemiparesis with speech difficulty. ? Recurrent strokes despite on anticoagulation History of massive CVA with left sided hemiplegic Insomnia Paroxysmal atrial fibrillation with secondary hypercoagulable state Status post dual-chamber pacemaker Abott MRI friendly a-sensed v-paced Hypertensive heart disease, LVH: LVEF 65%. Mild LVH mild LV diastolic dysfunction Type II demand mediated NSTEMI, telemetry with conservative management Wide QRS, low voltage RBBB GERD with gastritis Moderate Malnutrition Dyslipidemia Severe hypokalemia resolved obesity grade 1 Acute complicated cystitis, Yeast positive, No albicans Chronic hypothyroidism CAROLYN due to VMN ( baseline 0.87) Chronic macrocytic + iron deficient mixed anemia Coagulopathy- improved DVT right upper extremity 09/25/2024 Hypothyroidism acute on chronic likely due to medication indiscretion Severe sepsis with Septic shock Likely sepsis in the setting of aspiration pneumonia Decubitus ulcer high risk Completely bed bound at home. right arm ecchymosis Attending physician informed Operations or Procedures Chest tube 09/28/2024 Final Diagnosis/Problems List Recurrent Aspiration pneumonia likely due to bulbar function B/l pneumonia gram +ve / gram -ve / atypicals Acute hypoxic respiratory failure on 6 L oxygen Pleural effusion ARDS due to possible aspiration pneumonitis Right sided hemiparesis,likely repeated stroke leading to right hemiparesis with speech difficulty. ? Recurrent strokes despite on anticoagulation History of massive CVA with left sided hemiplegic Insomnia Paroxysmal atrial fibrillation with secondary hypercoagulable state Status post dual-chamber pacemaker Abott MRI friendly a-sensed v-paced Hypertensive heart disease, LVH: LVEF 65%. Mild LVH mild LV diastolic dysfunction Type II demand mediated NSTEMI, telemetry with conservative management Wide QRS, low voltage RBBB GERD with gastritis Moderate Malnutrition Dyslipidemia Severe hypokalemia resolved obesity grade 1 Acute complicated cystitis, Yeast positive, No albicans Chronic hypothyroidism CAROLYN due to VMN ( baseline 0.87) Chronic macrocytic + iron deficient mixed anemia Coagulopathy- improved DVT right upper extremity 09/25/2024 Hypothyroidism acute on chronic likely due to medication indiscretion Severe sepsis with Septic shock Likely sepsis in the setting of aspiration pneumonia Decubitus ulcer high risk Completely bed bound at home. right arm ecchymosis Discharge Disposition: at Hospital [address] RESIDENT Sep 28, 2024 20:09
[2024-09-28] MEDS ORDERED: TPN PER PHARMACY IV NR (22:00)
== END 2024-09-28 17:48 | DRG 871 ==
LOC: ICU WEST 09-11 00:15
PROVIDERS: ADMIT Internal Medicine Pulmonary Disease; ATTEND Family Medicine
PROC: 5A09357 Assistance with Respiratory Ventilation, Less than 24 Consecutive Hours, Continuous Positive Airway Pressure (ICD-10-PCS; 2024-09-17)
PROC: 5A09357 Assistance with Respiratory Ventilation, Less than 24 Consecutive Hours, Continuous Positive Airway Pressure (ICD-10-PCS; 2024-09-18)
PROC: 02HV33Z Insertion of Infusion Device into Superior Vena Cava, Percutaneous Approach (ICD-10-PCS; 2024-09-19)
PROC: B548ZZA Ultrasonography of Superior Vena Cava, Guidance (ICD-10-PCS; 2024-09-19)
PROC: 5A09357 Assistance with Respiratory Ventilation, Less than 24 Consecutive Hours, Continuous Positive Airway Pressure (ICD-10-PCS; 2024-09-19)
PROC: 5A09357 Assistance with Respiratory Ventilation, Less than 24 Consecutive Hours, Continuous Positive Airway Pressure (ICD-10-PCS; 2024-09-20)
PROC: 5A09357 Assistance with Respiratory Ventilation, Less than 24 Consecutive Hours, Continuous Positive Airway Pressure (ICD-10-PCS; 2024-09-21)
PROC: 30233N1 Transfusion of Nonautologous Red Blood Cells into Peripheral Vein, Percutaneous Approach (ICD-10-PCS; principal; 2024-09-22)
PROC: 5A09357 Assistance with Respiratory Ventilation, Less than 24 Consecutive Hours, Continuous Positive Airway Pressure (ICD-10-PCS; 2024-09-22)
PROC: 5A09357 Assistance with Respiratory Ventilation, Less than 24 Consecutive Hours, Continuous Positive Airway Pressure (ICD-10-PCS; 2024-09-23)
PROC: 5A09357 Assistance with Respiratory Ventilation, Less than 24 Consecutive Hours, Continuous Positive Airway Pressure (ICD-10-PCS; 2024-09-24)
PROC: 5A09357 Assistance with Respiratory Ventilation, Less than 24 Consecutive Hours, Continuous Positive Airway Pressure (ICD-10-PCS; 2024-09-25)
PROC: 5A09357 Assistance with Respiratory Ventilation, Less than 24 Consecutive Hours, Continuous Positive Airway Pressure (ICD-10-PCS; 2024-09-26)
PROC: 5A0935A Assistance with Respiratory Ventilation, Less than 24 Consecutive Hours, High Flow/Velocity Cannula (ICD-10-PCS; 2024-09-26)
PROC: 5A09357 Assistance with Respiratory Ventilation, Less than 24 Consecutive Hours, Continuous Positive Airway Pressure (ICD-10-PCS; 2024-09-27)
PROC: 5A0935A Assistance with Respiratory Ventilation, Less than 24 Consecutive Hours, High Flow/Velocity Cannula (ICD-10-PCS; 2024-09-27)
PROC: 5A09357 Assistance with Respiratory Ventilation, Less than 24 Consecutive Hours, Continuous Positive Airway Pressure (ICD-10-PCS; 2024-09-28)
PROC: 0W9930Z Drainage of Right Pleural Cavity with Drainage Device, Percutaneous Approach (ICD-10-PCS; 2024-09-28)
DX: A41.9 Sepsis, unspecified organism (principal); I21.A1 Myocardial infarction type 2; J69.0 Pneumonitis due to inhalation of food and vomit; R65.21 Severe sepsis with septic shock; J80 Acute respiratory distress syndrome; N17.0 Acute kidney failure with tubular necrosis; J15.69 Pneumonia due to other Gram-negative bacteria; J15.9 Unspecified bacterial pneumonia; I69.354 Hemiplegia and hemiparesis following cerebral infarction affecting left non-dominant side; J98.11 Atelectasis; N30.00 Acute cystitis without hematuria; D68.69 Other thrombophilia; E44.0 Moderate protein-calorie malnutrition; E87.0 Hyperosmolality and hypernatremia; E87.1 Hypo-osmolality and hyponatremia; I50.32 Chronic diastolic (congestive) heart failure; I82.621 Acute embolism and thrombosis of deep veins of right upper extremity; Z66 Do not resuscitate; Z20.822 Contact with and (suspected) exposure to COVID-19; Z68.34 Body mass index [BMI] 34.0-34.9, adult; R63.30 Feeding difficulties, unspecified; D53.9 Nutritional anemia, unspecified; E03.9 Hypothyroidism, unspecified; E61.1 Iron deficiency; E66.9 Obesity, unspecified; E78.5 Hyperlipidemia, unspecified; E87.6 Hypokalemia; G47.00 Insomnia, unspecified; I11.0 Hypertensive heart disease with heart failure; I34.81 Nonrheumatic mitral (valve) annulus calcification; I45.10 Unspecified right bundle-branch block; I48.0 Paroxysmal atrial fibrillation; K21.9 Gastro-esophageal reflux disease without esophagitis; L89.899 Pressure ulcer of other site, unspecified stage; D23.61 Other benign neoplasm of skin of right upper limb, including shoulder; D63.8 Anemia in other chronic diseases classified elsewhere; K29.70 Gastritis, unspecified, without bleeding; I69.320 Aphasia following cerebral infarction; Z51.5 Encounter for palliative care; Z74.01 Bed confinement status; Z79.01 Long term (current) use of anticoagulants; Z79.899 Other long term (current) drug therapy; Z80.0 Family history of malignant neoplasm of digestive organs; Z82.49 Family history of ischemic heart disease and other diseases of the circulatory system; Z83.3 Family history of diabetes mellitus; Z85.3 Personal history of malignant neoplasm of breast; Z87.442 Personal history of urinary calculi; Z95.0 Presence of cardiac pacemaker; Z90.49 Acquired absence of other specified parts of digestive tract; Z90.10 Acquired absence of unspecified breast and nipple; Z88.1 Allergy status to other antibiotic agents; Z88.5 Allergy status to narcotic agent
CPT/HCPCS: 31720; 32551; 36415; 36569; 36600; 70551; 71045; 71250; 76604; 76937; 80048; 80053; 80202; 82533; 82565; 82728; 82746; 82805; 82962; 83540; 83550; 83605; 83735; 83880; 84100; 84132; 84439; 84443; 84478; 84481; 84484; 85014; 85018; 85025; 85379; 85610; 85730; 86850; 86900; 86901; 86920; 87040; 87070; 87077; 87081; 87086; 87088; 87186; 87205; 87426; 92610; 93005; 93306; 93886; 93970; 93971; 94640; 94660; 96361; 96374; 97163; 99291; G0378; J1450; J1756; J1885; J2003; J2470; J2543; J3480; J3490; P9047